=== PATIENT | male | born 1940 | race Caucasian/White ===

== ENCOUNTER 2016-12-15 20:02 | Inpatient (IN) | payer OTHER, MEDICARE ==
[~2016-12-15] VITALS: Ht 182.9 cm; Wt 63.6 kg
[~2016-12-15 20:02] MED LIST: CELLCEPT 250MG250 MG PO; CLOPIDOGREL75 MG PO; FLEXERIL10 MG PO; HYDRODIURIL 2525 MG PO; LIPITOR40 MG PO; NIFEDICAL XL60 MG PO; NITROGLYCER0.4 MG/HR SL; PREVACID 30MG30 MG PO; RANEXA 500MG500 MG PO; TAMSULOSIN HYD0.4 MG PO; VICODIN5-300 PO; ZETIA10 MG PO; ZOVIRAX400 MG PO
[2016-12-15] MEDS ORDERED: ACYCLOVIR200 M1 PO (20:08)
[2016-12-15] MEDS ORDERED: LIPITOR80 M1 PO (20:09)
[2016-12-15] MEDS ORDERED: CARVEDILOL12.5 M1 PO (20:10)
[2016-12-15] MEDS ORDERED: PLAVIX75 M1 PO (20:10)
[2016-12-15] MEDS ORDERED: HYDROCHLOROTHIA25 M1 PO (20:12)
[2016-12-15] MEDS ORDERED: FINASTERIDE5 M1 PO (20:12)
--- NOTE | 2016-12-15 20:15 | ED GENERAL ADULT ---
History of Present Illness General Chief Complaint: General Adult Stated Complaint: BIBA FOR CHILLS,FEVER,WEAKNESS,STENT ON TH Source: patient, EMS Exam Limitations: confusion Vital Signs & Intake/Output Vital Signs & Intake/Output Vital Signs Date Time Temp Pulse Resp B/P Pulse O2 O2 Flow FiO2 Ox Delivery Rate 12/178 75 12/17 2201 72 82/51 12/17 2202 71 82/51 12/17 2201 72 82/51 12/17 1900 85 12/17 1625 100 12/17 1600 89 Ventilator 100% 12/17 1600 98.0 100 20 100/70 94 Ventilator 100% 12/17 1429 100 12/17 1315 100 12/17 1300 134 104/60 12/17 1200 89 Ventilator 100% 12/17 1133 100 12/17 1022 92 12/17 0800 88 BIPAP 90% 12/17 0800 99.3 124 36 170/90 88 BIPAP 90% 12/17 0800 113 85 12/17 0540 74 93 12/17 0400 92 BIPAP 50% 12/17 0303 73 94 12/17 0032 85 99 12/17 0019 86 99 12/17 0016 92 99 12/17 0000 103.5 90 26 100/48 97 BIPAP 70% 12/17 0000 97 BIPAP 70% ED Intake and Output 12/17 0000 12/16 1200 Intake Total 1342.5 610 Output Total 750 175 Balance 592.5 435 Intake, IV 822.5 550 Intake, Oral 520 60 Number 1 Bowel Movements Output, Urine 750 175 Patient 152 lb Weight Allergies Coded Allergies: Penicillins (HIVES 12/15/16) Reconcile Medications Acyclovir 200 MG CAPSULE 1 CAP PO BID COLD SORES (Reported) Aspirin (Aspirin*) 81 MG TAB.CHEW 1 TAB PO DAILY HEART (Reported) Atorvastatin Calcium (Lipitor) 80 MG TABLET 0.5 TAB PO DAILY CHOLESTEROL ( Reported) Carvedilol 12.5 MG TABLET 0.5 TAB PO BID HEART/BP (Reported) Clopidogrel Bisulfate (Plavix) 75 MG TABLET 1 TAB PO DAILY BLOOD THINNER ( Reported) Finasteride 5 MG TABLET 1 TAB PO DAILY PROSTATE (Reported) Hydrochlorothiazide 25 MG TABLET 1 TAB PO DAILY DIURETIC/BP (Reported) Isosorbide Mononitrate (Isosorbide Mononitrate ER) 60 MG TAB.ER.24H 0.5 TAB PO QAM CHEST/ANGINA (Reported) Metformin HCl 500 MG TABLET 1 TAB PO BID DM (Reported) Nifedipine (Procardia XL) 60 MG TAB.ER.24 1 TAB PO DAILY BP/HEART (Reported) Nitroglycerin 400 MCG/SPRAY SPRAY 1 SPRAY SL 4XDAILY PRN CHEST/JAW DISCOMFORT (Reported) Nitroglycerin (Minitran) 0.4 MG/HOUR PATCH.TD24 1 PATCH TOP DAILY CHEST PAIN (Reported) Omeprazole 20 MG TABLET.DR 1 TAB PO DAILY AC GI (Reported) Ranolazine (Ranexa) 500 MG TAB.ER.12H 1 TAB PO BID ANGINA/CHEST PAIN ( Reported) Tamsulosin HCl (Flomax) 0.4 MG CAP.ER.24H 1 CAP PO DAILY PROSTATE (Reported) Triage Nurses Notes Reviewed? yes Onset: Abrupt Duration: hour(s): (2-3) Timing: single episode today Injury Environment: home Severity: severe No Modifying Factors: none Associated Symptoms: weakness, chills, fever HPI: This is a 76-year-old male presents by EMS from home for chief complaint of fever, altered mental status and weakness. Patient reports that he had a stent placed in his left leg [facility] the [facility] yesterday. The point of access was his right groin. He denies any abdominal pain chest pain nausea or vomiting. Denies any dysuria. He states he just felt weak today. Patient reported taking Tylenol possibly 9:30 this morning. He is slow to respond to questions. He is oriented 3. Denies any other symptoms. The patient states that he rather would come to this hospital instead of the back to the OR. All of his doctors are at the OR including the vascular surgeon. Past History Travel History Traveled to [place] past 21 day No Medical History Any Pertinent Medical History? see below for history Cardiovascular: BYPASS, HEART CONDITION Surgical History Surgical History: VASCULAR STENT Psychosocial History What is your primary language Telugu Family History Hx Contributory? No Review of Systems Review of Systems Constitutional: Reports: chills, fever, malaise, weakness. EENTM: Reports: no symptoms. Respiratory: Denies: cough, short of breath. Cardiovascular: Denies: chest pain, palpitations. GI: Denies: diarrhea, vomiting. Genitourinary: Denies: dysuria, frequency. Musculoskeletal: Reports: no symptoms. Skin: Reports: no symptoms. Neurological/Psychological: Reports: no symptoms. Hematologic/Endocrine: Denies: bruising, bleeding, polyuria, polydipsia. Immunologic/Allergic: Reports: no symptoms. All Other Systems: Reviewed and Negative Physical Exam Physical Exam General Appearance: well developed/nourished, alert, awake, mild distress Head: atraumatic, normal appearance Eyes: Bilateral: normal appearance, PERRL, EOMI. Ears, Nose, Throat: normal pharynx, hearing grossly normal Neck: normal inspection, supple, full range of motion Respiratory: chest non-tender, no respiratory distress, decreased breath sounds Cardiovascular: tachycardia Peripheral Pulses: 2+ radial (R), 2+ radial (L) Gastrointestinal: normal bowel sounds, soft Back: normal inspection, normal range of motion Neurologic/Psych: no motor/sensory deficits, awake, alert, oriented x 3 Skin: intact, normal color, warm/dry, diaphoresis (forehead) Core Measures ACS in differential dx? Yes ASA ordered for poss ACS? Yes-ordered CVA/TIA Diagnosis: No Severe Sepsis Present: Yes BC x2: Yes Lactic Acid x2: Yes IV ABX Broad Spectrum: Yes NS/LR Started: Yes Septic Shock Present: No ED Sepsis Exam Date of Focused Sepsis Exam: 12/15/16 Time of Focused Sepsis Exam: 2199 Sepsis Cardiac Exam: Tachycardia Sepsis Resp Exam: CTA Sepsis Cap Refill Exam: <2 Sec Sepsis Peripheral Pulse Exam: Normal Sepsis Peripheral Pulse Location: Radial Sepsis Skin Color Exam: Normal for Ethnicity Skin Temp/Moisture Exam: Warm/Dry Progress Differential Diagnoses I considered the following diagnoses in my evaluation of the patient: [PNEUMONIA , UTI, SEPSIS, BACTEREMIA, ENDOCARDITIS, ACS] Plan of Care: Orders Procedure Date/time Status XRY-PORTABLE CHEST XRAY 12/18 0500 Active ICU LAB BUNDLE 12/18 0500 Active CBC WITHOUT DIFFERENTIAL 12/18 0500 Active TROPONIN LEVEL 12/17 2200 Complete EKG 12/17 2200 Active PARTIAL THROMBOPLASTIN TIME 12/17 1911 Complete VENTILATOR PARAMETERS 12/17 1900 Complete ICU LAB BUNDLE 12/17 1800 Complete TROPONIN LEVEL 12/17 1500 Complete EKG 12/17 1500 Active VENTILATOR PARAMETERS 12/17 1300 Complete BLOOD CULTURE 12/17 1250 Active ARTERIAL BLOOD GAS (GEN) 12/17 1200 Active VENTILATOR PARAMETERS 12/17 1125 Complete Cates, Insertion/Removal/Asses 12/17 1118 Active PARTIAL THROMBOPLASTIN TIME 12/17 1000 Complete TROPONIN LEVEL 12/17 0900 Complete EKG 12/17 0900 Active BIPAP 12/17 0845 Complete PHOSPHORUS 12/17 0335 Complete MAGNESIUM 12/17 0335 Complete BIPAP 12/17 0032 Complete BIPAP 12/17 0018 Complete Lab Add-on Test 12/17 UNK Active Restraint- Medical 12/17 UNK Active Precautions 12/16 2348 Active OXYGEN SETUP [facility] 12/16 UNK Complete OXYGEN 12/16 UNK Complete OXYGEN TRANSPORT 12/16 UNK Complete CONTIN. POS. AIRWAY PRESS. G 12/16 UNK Complete Current Medications Sig/Damon Start time Last Medication Dose Stop Time Status Admin Lorazepam 50 MG Q24H 12/17 2000 AC (Ativan Drip) Dextrose/Water 500 ML (Dextrose 5%) Non-Formulary 0 SEE ADMIN CRITERIA 12/17 1130 CAN Medication (NON FORMULARY) Polyethylene Glycol 17 GM DAILY PRN 12/16 1015 AC (Miralax) Tamsulosin HCl 0.4 MG DAILY 12/16 1000 AC (Flomax) Acetaminophen/ 1 TAB Q6P PRN 12/16 0015 AC Hydrocodone Bitart (Vicodin) Oxycodone HCl 10 MG Q6P PRN 12/16 0015 AC (Roxicodone) Laboratory Tests 12/17/160: Troponin I 35.10 *H 12/17/160: Anion Gap 12, Estimated GFR 28 L, Glucose 265 H, Calcium 7.3 L, Phosphorus 5.2 H, Magnesium 2.0, Total Bilirubin 0.5, AST 1308 H, ALT 1035 H, Albumin 2.4 L, APTT 83 H 12/17/16 1530: Troponin I 23.50 *H 12/17/16 1215: pH 7.37, pCO2 31 L, pO2 65 L, HCO3 17 L, ABG O2 Sat (Measured) 90.0 L, P-50 (Temp Corrected) YES, Carboxyhemoglobin 0.6 L, O2 Concentration % 100%, Temperature 99.3, Respiration Rate 20, O2 Delivery Method VENT, Vent Mode AC, Expiratory Pressure 5, Tidal Volume 500, Phlebotomy Draw Site RIGHT RADIAL 12/17/16 0949: Troponin I 11.90 *H, APTT 53 H 12/17/16 0335: Phosphorus 3.0, Troponin I 16.00 *H 12/17/16 0335: Anion Gap 12, Estimated GFR > 60, BUN/Creatinine Ratio 45.0 H, Magnesium 2.2, APTT 117 *H, CBC w Diff MAN DIFF ORDERED, RBC 4.02 L, MCV 90.2, MCH 30.5, RDW 14.1, MPV 9.4, Gran % 91.6 H, Lymphocytes % 5.3 L, Monocytes % 3.0, Eosinophils % 0, Basophils % 0.1, Absolute Granulocytes 7.7 H, Absolute Lymphocytes 0.4 L, Absolute Monocytes 0.2, Absolute Eosinophils 0, Absolute Basophils 0, Platelet Estimate DECREASED, Ovalocytes 1+, PUBS MCHC 33.9 Microbiology 12/17 1530 BLOOD: Blood Culture - RECD 12/17 1500 BLOOD: Blood Culture - RECD IV FLUIDS, BLOOD CULTURES, INFLUENZA SWAB, CXR, LABS, UA, URINE CULTURE. IV TYLENOL ORDERED. CXR SHOWS ? PNEUMONIA. IV ABX ORDERED. ELEVATED TROPONIN. D/W DR IRAHETA. PATIENT WITH NO CHEST PAIN OR SHORTNESS OF BREATH. PATIENT ADMITTED TO TELEMETRY FOR ELEVATED TROPONIN. ASPIRIN ORDERED. WILL NEED SERIAL EKG/ TROPONINS. DR IRAHETA WILL CONSULT. ADMITTED TO HOSPITALIST ON TELEMETRY. ([facility]) Diagnostic Imaging: Viewed by Me: Radiology Read. Discussed w/RAD: Radiology Read. Initial ED EKG: RBBB, SINUS TACHYCARDIA Comments: PATIENT: CAITY BELL PRESENT AGE: 76 PATIENT ACCOUNT NO: [id number] : 38 LOCATION: [facility] ORDERING PHYSICIAN: LULU HARVEY MD SERVICE DATE: 12/15/16 EXAM TYPE: RAD - XRY-PORTABLE CHEST XRAY EXAMINATION: XR PORTABLE CHEST CLINICAL INFORMATION: Fever. Weakness. Pneumonia. COMPARISON: Chest radiography 07/10/2014. TECHNIQUE: Portable AP view of the chest was obtained. FINDINGS: Sternotomy wires and mediastinal surgical clips noted. The lungs are well expanded. Mild left basilar opacification. No pulmonary edema, pleural effusion, or pneumothorax. No mediastinal widening. No acute osseous abnormalities. IMPRESSION: Mild left basilar opacification, consider atelectasis or other subtle consolidation. DICTATED BY: BOB HERNANDEZ MD DATE/TIME DICTATED:12/15/162144 PATTERN ILLUSTRATOR:VANESSA DATE/TIME TRANSCRIBED:12/15/162144 CONFIDENTIAL, DO NOT COPY WITHOUT APPROPRIATE AUTHORIZATION. <Electronically signed in Other Vendor System> SIGNED BY: BOB HERNANDEZ MD 12/15/162150 Departure Departure Time of Disposition: 2257 Disposition: STILL A PATIENT Condition: Stable Clinical Impression Primary Impression: SIRS (systemic inflammatory response syndrome) Secondary Impressions: Elevated troponin I level, Pneumonia Referrals: AYDE HUGHES MD (PCP/Family) Departure Forms: Customer Survey General Discharge Information Admission Note Spoke With: MERYL CROOK MD Documentation of Exam: Documentation of any treatments & extenuating circumstances including Concerns Regarding Discharge (functional status, medication knowledge or non-compliance, living conditions, etc.) that warrant an admission rather than observation: [ TELE MONITOR, IV ABX, IV FLUIDS, IV ANTIPYRETICS, F/U BLOOD AND URINE CULTURES, MONITOR I/O, CARDIOLOGY CONSULTATION DR FELA IRHAETA, SERIAL EKG, SERIAL TROPONIN ] Critical Care Note Critical Care Note Critical Care Time: 30-74 min
[2016-12-15] MEDS ORDERED: ISOSORBIDE MONO60 M1 PO (20:17)
[2016-12-15] MEDS ORDERED: PROCARDIA XL60 M1 PO (20:18)
[2016-12-15] MEDS ORDERED: METFORMIN HCL500 M3 PO (20:18)
[2016-12-15] MEDS ORDERED: NITROGLYCERIN4.9 GM SL (20:20)
[2016-12-15] MEDS ORDERED: OMEPRAZOLE20 M3 PO (20:21)
[2016-12-15] MEDS ORDERED: MINITRAN1 EAC2 TOP (20:21)
[2016-12-15] MEDS ORDERED: FLOMAX0.4 M1 PO (20:22)
[2016-12-15] MEDS ORDERED: RANEXA500 M1 PO (20:22)
--- NOTE | 2016-12-15 20:22 | NUR ---
PT BIBA FROM HOME. PER PT HE HAD A STENT PLACED IN LEFT LEG SATURDAY MORNING AND OVER THE PAST FEW DAYS HE HAS BEEN WEAK. PT WENT TO THE RESTROOM AT HOME AND BECAME INCREASINGLY WEAK AND WAS LOWERED TO THE FLOOR. NO HEAD HIT OR LOC. BS IN ROUTE TO ED 278. EMS, STATES THAT PT FREQUENTLY GETS URINARY TRACT INFECTIONS. UPON ED ARRIVAL PT ALERT AND ORIENTED. NITRO PATCH TO R CHEST. PT WARM TO TOUCH. TACHYCARDIC AT 110. TEMP 101.7. CARDIAC HX.
--- NOTE | 2016-12-15 20:48 | NUR ---
BLOOD DRAWN AND SENT TO LAB SST, LAV, BLUE, ZAYAS, PINK
[2016-12-15 21:01] LABS: ABSOLUTE BASOPHIL COUNT 0 /CUMM (0.0-0.2); ABSOLUTE EOSINOPHIL COUNT 0 /CUMM (0.0-0.7); ABSOLUTE GRANULOCYTE CT 13.8 /CUMM (1.4-6.5); ABSOLUTE LYMPH COUNT 0.2 /CUMM (1.2-3.4); ABSOLUTE MONOCYTE COUNT 1.1 /CUMM (0.10-0.60); BASOPHIL % 0.1 % (0.0-2.0); EOSINOPHIL % 0 % (0-5); GRANULOCYTE % 91.5 % (42.2-75.2); HEMATOCRIT 41.5 % (42-52); MEAN CORPUSCULAR HGB 30.6 PG (27.0-31.0); MEAN CORPUSCULAR HGB CONC 34.4 G/DL (33.0-37.0); MEAN CORPUSCULAR VOLUME 88.9 FL (80.0-94.0); MEAN PLATELET VOLUME 9.1 FL (7.4-10.4); PLATELET COUNT 192 /CUMM (130-400); RBC DISTRIBUTION WIDTH 13.9 % (11.5-14.5); RED BLOOD CELL CT 4.67 /CUMM (4.70-6.10)
--- NOTE | 2016-12-15 21:03 | NUR ---
SST AND DUMONT TOP HEMOLYZED PER LAB. ISABELLA CASTAÑEDA NOTIFIED.
[2016-12-15 21:15] LABS: WHITE BLOOD CELL COUNT 15.1 /CUMM (4.8-10.8)
--- NOTE | 2016-12-15 21:18 | NUR ---
PT APPEARS TO BE RESTING COMFORTBALY. DENIES PAIN AND SOB. NO APPARENT DISTRESS. FAMILY AT BEDSIDE. WILL CONTINUE TO MONITOR.
--- NOTE | 2016-12-15 21:51 | RADIOLOGY REPORT ---
EXAMINATION: XR PORTABLE CHEST CLINICAL INFORMATION: Fever. Weakness. Pneumonia. COMPARISON: Chest radiography 07/10/2014. TECHNIQUE: Portable AP view of the chest was obtained. FINDINGS: Sternotomy wires and mediastinal surgical clips noted. The lungs are well expanded. Mild left basilar opacification. No pulmonary edema, pleural effusion, or pneumothorax. No mediastinal widening. No acute osseous abnormalities. IMPRESSION: Mild left basilar opacification, consider atelectasis or other subtle consolidation.
--- NOTE | 2016-12-15 21:59 | NUR ---
CRITICAL TEST RESULTS [id number] CAITY BELL 76 M TESTS AND RESULTS: TROP 0.36 Results received and read back by: CORAZON COSTELLO Results received date and time: 12/15/16 2200 The following provider was notified of the results, and read the results back: MD HARVEY Notified date and time: 12/15/16 at 2200
--- NOTE | 2016-12-15 22:55 | NUR ---
PT A/O X4. RESP UNLABORED. NSR ON THE MONITOR. SKIN WARM AND DRY. PT DENIES PAIN. NO APPARENT DISTRESS.
--- NOTE | 2016-12-15 23:02 | History & Physical ---
SANDRA DEE,MICHEL 12/15/16 2254: General Information and HPI MD Statement: I have seen and personally examined CAITY BELL and documented this H&P. The patient is a 76 year old M who presented with a patient stated chief complaint of [fever, weakness, Chills, ams]. Source of Information: patient Exam Limitations: no limitations History of Present Illness: This history 68-year-old male with past medical history significant for hypertension, hyperlipidemia, peripheral vascular disease, bladder cancer diagnosed over one year ago, oral HSV, CAD with a triple bypass in 1993, who has all his routine [facility], who presents with chief complaint of lower extremity weakness, fever, chills. Of note, patient had recent vascular procedure on 12/14/2016 at the [facility]. Per the patient, he had what sounds like a balloon angioplasty without stent in his left leg with access in his right groin. The procedure was done on outpatient basis and he was discharged home on the same day. Patient said he felt slightly below his baseline right after the procedure, but he slept well overnight. Starting this morning he did endorse chills, and subsequent weakness. By afternoon he said he couldn't get out of the chair or get out of bed. His called the ambulance and he was brought to [facility]. He denies any abdominal pain, chest pain, nausea, vomiting, dysuria, hematuria, hematochezia, or shortness of breath. Denies any smoking, alcohol or IV drug abuse. He does endorse history of frequent UTIs secondary to bladder cancer. Last UTI 6 months ago[address] PCP is Dr. Hughes, film inspector is Dr. Jordan and urologist is (sp?). Allergies/Medications Allergies: Coded Allergies: Penicillins (HIVES 12/15/16) Home Med list Acyclovir 200 MG CAPSULE 1 CAP PO BID COLD SORES (Reported) Aspirin (Aspirin*) 81 MG TAB.CHEW 1 TAB PO DAILY HEART (Reported) Atorvastatin Calcium (Lipitor) 80 MG TABLET 0.5 TAB PO DAILY CHOLESTEROL ( Reported) Carvedilol 12.5 MG TABLET 0.5 TAB PO BID HEART/BP (Reported) Clopidogrel Bisulfate (Plavix) 75 MG TABLET 1 TAB PO DAILY BLOOD THINNER ( Reported) Finasteride 5 MG TABLET 1 TAB PO DAILY PROSTATE (Reported) Hydrochlorothiazide 25 MG TABLET 1 TAB PO DAILY DIURETIC/BP (Reported) Isosorbide Mononitrate (Isosorbide Mononitrate ER) 60 MG TAB.ER.24H 0.5 TAB PO QAM CHEST/ANGINA (Reported) Metformin HCl 500 MG TABLET 1 TAB PO BID DM (Reported) Nifedipine (Procardia XL) 60 MG TAB.ER.24 1 TAB PO DAILY BP/HEART (Reported) Nitroglycerin 400 MCG/SPRAY SPRAY 1 SPRAY SL 4XDAILY PRN CHEST/JAW DISCOMFORT (Reported) Nitroglycerin (Minitran) 0.4 MG/HOUR PATCH.TD24 1 PATCH TOP DAILY CHEST PAIN (Reported) Omeprazole 20 MG TABLET.DR 1 TAB PO DAILY AC GI (Reported) Ranolazine (Ranexa) 500 MG TAB.ER.12H 1 TAB PO BID ANGINA/CHEST PAIN ( Reported) Tamsulosin HCl (Flomax) 0.4 MG CAP.ER.24H 1 CAP PO DAILY PROSTATE (Reported) Compliance With Home Meds: UNKNOWN Past History Travel History Traveled to [place] past 21 day No Medical History Cardiovascular: hypertension, hyperlipidemia, PVD, QUADRUPLE BYPASS Musculoskeletal: PVD Cancer(s): bladder Surgical History Surgical History: Balloon Angio of LLE. Past Family/Social History Psychosocial History Smoking Status: Never Smoked ETOH Use: denies use Illicit Drug Use: denies illicit drug use Functional Ability ADLs Independent: dressing, eating, toileting, bathing. Employment History Employment [employer] Review of Systems Review of Systems Constitutional: Reports: chills, fever, malaise, weakness. Denies: diaphoresis, unexplained weight loss. EENTM: Denies: blurred vision. Cardiovascular: Denies: chest pain, edema, orthopena, palpitations, peripheral edema, syncope. Respiratory: Denies: cough, short of breath, wheezing. GI: Denies: abdominal pain, bloating, constipation, diarrhea, distention, bowel incontinence, melena, nausea, vomiting. Genitourinary: Denies: frequency, hematuria, hesitation, nocturia, pain, urgency. Musculoskeletal: Reports: no symptoms. Skin: Reports: no symptoms. Exam & Diagnostic Data Last 24 Hrs of Vital Signs/I&O Vital Signs Date Time Temp Pulse Resp B/P Pulse O2 O2 Flow FiO2 Ox Delivery Rate 12/15 2204 102.3 93 16 117/56 95 Nasal 2.0L Cannula 12/15 2048 101.7 12/15 2022 101.7 110 20 154/67 95 Nasal 2.0L Cannula Physical Exam General Appearance Alert, Oriented X3, Cooperative, No Acute Distress Skin No Significant Lesion HEENT Atraumatic, PERRLA, EOMI, Mucous Membr. moist/pink Neck Supple Cardiovascular Regular Rate, Normal S1, Normal S2, No Murmurs Lungs Clear to Auscultation, decreased air movement. Mild rhonchi Abdomen Soft, No Tenderness Neurological Normal Speech Extremities r. groin has evidence of catheter insertion. Looks clean with some petechiae but no evidence of infection or hematoma. Vascular Normal Pulses, Pulses Symmetrical, warm well perfused extremities Last 24 Hrs of Labs/Evens: Laboratory Tests 12/15/162328: Lactic Acid Pending 12/15/162107: Anion Gap 13, Estimated GFR > 60, BUN/Creatinine Ratio 28.6 H, Glucose 207 H, Lactic Acid 1.3, Calcium 8.6, Total Bilirubin 1.1, AST 20, ALT 35, Alkaline Phosphatase 79, Creatine Kinase 57, Troponin I 0.36 *H, Total Protein 6.4, Albumin 3.5, Globulin 2.9, Albumin/Globulin Ratio 1.2, Urine Color YEL, Urine Clarity CLEAR, Urine pH 6.0, Ur Specific [place] 1.025, Urine Protein 100 H, Urine Ketones TRACE H, Urine Nitrite NEG, Urine Bilirubin NEG, Urine Urobilinogen 1.0, Ur Leukocyte Esterase NEG, Ur Microscopic SEDIMENT EXAMINED, Urine RBC 5-10 H, Urine WBC 15-25 H, Ur Epithelial Cells OCCAS, Urine Hemoglobin MOD H, Urine Glucose NEG 12/15/162039: CBC w Diff NO MAN DIFF REQ, RBC 4.67 L, MCV 88.9, MCH 30.6, RDW 13.9, MPV 9.1, Gran % 91.5 H, Lymphocytes % 1.4 L, Monocytes % 7.0, Eosinophils % 0, Basophils % 0.1, Absolute Granulocytes 13.8 H, Absolute Lymphocytes 0.2 L, Absolute Monocytes 1.1 H, Absolute Eosinophils 0, Absolute Basophils 0, PUBS MCHC 34.4 Microbiology 12/15 2109 NASOPHARYN: Influenza Virus A & B Rapid Smear - COMP 12/15 2099 BLOOD: Blood Culture - RECD 12/15 2039 BLOOD: Blood Culture - RECD Assessment/Plan Assessment: This is a 76-year-old male with past medical history significant for CAD status post quadruple bypass, bladder cancer with recurrent UTI, peripheral vascular disease with recent vascular procedure done yesterday, hyperlipidemia, hypertension, diabetes, presented with chief complaint of chills, weakness, and fever. Given history of recent instrumentation, fever, elevated white count, and positive troponin, patient is admitted to telemetry for sepsis and demand ischemia. ED workup showed: Vitals at 102.3, heart rate between 93 and 110, respiratory rate between 16 and 20, blood pressure between 154 and 117 systolic, satting 95% on room air. BEP showed sodium 134, potassium 3.2, chloride 98, bicarbonate 24, BUN 20, creatinine 0.7. Gap of 13. Glucose 27, lactic acid 1.3, troponin 136, CK 57. CBC showed white count 15.1, hemoglobin 14.3, hematocrit 41.5, platelet 192. Chest x-ray showed possible left basilar opacification, possible atelectasis vx foci of pneumonia. EKG showed: Right bundle branch block, tachycardia, and possible anterolateral ST depression. PLAN 1. Sepsis: Patient comes in with fever 102.3, white count of 15.1, and tachycardia with heart rate up to 110. He has several possible sources of infection including pneumonia given chest x-ray showing left basilar opacification, UTI given frequent history of chronic UTIs secondary to bladder cancer w/a dirty UA this admission, and a bloodstream infection given temporal proximity of vascular intervention on 12/14/2016. His lactic acid was 1.3. Given that patient meets SIRS criteria with multiple source of infection, he meets criteria for sepsis. His qSOFA <2. * Trend lactic acid * Continue IV hydration * Continue ceftriaxone and azithromycin for possible pneumonia and UTI * Follow blood cultures * Follow-up flu swab 2. Elevated troponins: Patient had initial troponin of 0.36. His EKG shows tachycardia, right bundle branch block, and anterolateral ST depression. He does have history of quadruple bypass and is on nitroglycerin 20/05. He takes baby aspirin every day. * Troponin EKG at 3 AM and 9 AM * Cardiology consult in a.m. * Monitor on telemetry * Continue nitroglycerin * Echo in a.m. * [facility] 4. PVD: Patient has history of peripheral vascular disease. On physical exam his extremities were warm, well-perfused and had palpable pulses. He had recent instrumentation on his right lower extremity; per patient he had a balloon procedure performed. No stents were implanted at this time. He is on aspirin and Plavix at home. * Continue aspirin and Plavix * [facility] 5. Hypokalemia: Patient came in with potassium 3.2. * Check magnesium * Replete potassium * Monitor BEP 6. History of oral HSV: Patient states he has not had a an outbreak of HSV in over 6 months. * Continue to monitor. 7. Diabetes mellitus: Patient has history of diabetes on metformin. * Hold metformin * Accu-Chek * Sliding scale * Diabetic diet 8. Hypertension/ Hyperlipidemia/GERD/BPH: Continue home regimen. FULL CODE DIABETIC DIET Chemical dvt ppx As Ranked By This Provider Problem List: 1. Pneumonia 2. Elevated troponin I level 3. SIRS (systemic inflammatory response syndrome) Core Measures/Miscellaneous Acute Coronary Syndrome ACS Diagnosis: No Cerebrovascular Accident CVA/TIA Diagnosis: No Congestive Heart Failure CHF Diagnosis: No Venous Thromboembolism VTE Risk Factors: Acute medical illness, Age > 40, Cancer/chemo/oth therapy VTE Prophylaxis Ordered Inpt: Pharm- Lovenox No Mech VTE prophylaxis d/t: No contraindications No VTE Pharm Prophylaxis d/t: No contraindications VTE Diagnosis: No VTE Type: NONE VTE Confirmed by (Test): NONE Severe Sepsis Severe Sepsis Present: No Septic Shock Septic Shock Present: No Miscellaneous Documentation Attending Case Discussed With: Dr. Montoya Primary Care Physician: AYDE HUGHES MD Patient sees these Specialists Dr. Jordan Level of Patient Care: Telemetry JOHN SYED MD 12/15/16 3365: Resident Review Statement Resident Statement: examined this patient, discussed with chemist internship Other Findings: This is a 76-year-old gentleman who has all his health care normally done at the [facility] that presents to the emergency room today with a chief complaint of feeling tired and fatigued. He has a past medical history significant for hypertension, hyperlipidemia, diabetes mellitus, peripheral or vascular disease, coronary artery disease status post CABG over 10 years ago, history of bladder cancer receiving installations currently, recent surgical history of left femoral artery balloon procedure yesterday at the [facility] without any stents, who has mentioned above presented today feeling tired and fatigued. Patient states that yesterday he went in for his vascular procedure which was a scheduled routine outpatient procedure, subsequently he went home and felt tired and fatigue last night and went to bed. He woke up this morning and it was difficult for him to ambulate and subsequently his brought him to the emergency room. He does complain of some fevers however denies any chest pain, shortness of breath, nausea, vomiting, recent illnesses or sick contacts. He reports no UTI like symptoms. Significant physical exam- He is alert and oriented to time place and person; cardiac and lung exam is benign; pulses equal and present bilateral lower extremities; right groin postprocedure surgical incision healing well. EKG Rate 109, PO2 of 4, QRS 158, QTC 502, sinus tachycardia, right bundle branch block, left posterior fascicular block Chest x-ray- Mild left basilar opacification, atelectasis versus consolidation Labs- Leukocytosis of 15,100, sodium 134, potassium 3.2, lactic acid 1.3, first troponin 0.36 Urine significant for proteins, trace ketones, 5-10 RBCs, 15-25 WBCs Assessment- 1. Sepsis; likely secondary to pneumonia versus UTI 2. Community-acquired pneumonia 3. Urinary tract infection 4. Positive troponin; likely secondary to sepsis 5. Leukocytosis; likely reactive to infection 6. Coronary artery disease, status post CABG 7. One-day history of left femoral artery balloon procedure 8. History of bladder cancer 9. Hypertension 10. Hyperlipidemia 11. Diabetes mellitus 12. Peripheral vascular disease 13. BPH 14. GERD 15. Remote history of oral herpes simplex 16. Hypokalemia, potassium 3.2 17. Hyponatremia, sodium 134, likely secondary to decreased by mouth intake Plan- Admit to telemetry Trend troponin and EKG Strict I's and O's Cardiology consult in AM Echocardiogram Kim culture IV ceftriaxone and azithromycin Continue all home meds Replete potassium Repeat labs in the morning Accu-Cheks Diabetic diet Sliding scale insulin DVT prophylaxis with subcutaneous heparin Pain pathway Full code [facility] AMBREEN DEE, [facility] 12/16/16 0110: Attending MD Review Statement Attending Statement Attending MD Statement: examined this patient, discuss w/resident/PA/MELTER LOADER, agreed w/resident/PA/MELTER LOADER Attending Assessment/Plan: 76 yo M who mainly follows at [facility], has h/o CAD s/p CABG (1993), HTN, T2DM, PVD s/p left ?femoral balloon angioplasty (access through right groin) at the [facility] 1-2 days prior to admission, is here with c/o weakness, lethargy and fever. He denies lightheadedness or syncope. No fall or trauma. Denies cough, phlegm, dyspnea, N/V, diarrhea or urinary symptoms. He also has a h/o bladder cancer undergoing ?intravesical therapy with Dr. Webber, patient unable to provide much details. Also reports recurrent UTI, last treated about 6 months ago per patient. Vitals: Tmax 102.3, tachycardic to 100-110's, sats 95% on 2L, BP 119/56. Exam: AAO, dry mucous membranes, no oral thrush or sores, Chest bibasilar rhonchi+, Heart S1S2 regular, tachycardic, systolic murmur+, Abd soft, NT, Extremities no edema, peripheral pulses well felt. Right groin no obvious swelling or erythema. Labs: WBC 15.1, no bands, Na 134, K 3.2, glucose 207, lactic acid 1.3, Mag 1.6, trop 0.36, UA clear with WBC 15-25, RBC 5-10, neg leukocyte esterase. CXR: mild left basilar opacification. EKG: Sinus tachycardia @ 109, RBBB, LPFB, first degree AV block, Qtc 502, V3-V5 mild ST depression ?tachycardia induced. 1. SIRS/ sepsis in the setting of community acquired pneumonia. UA is not convincingly dirty to suggest a UTI and patient remains asymptomatic. His right groin access site looks clean. No obvious SSTI. He has no implants (prosthesis, pacemaker, stents, port) in his body. Will panculture, check urine legionella and strep Ag, continue IV ceftriaxone and azithro for now. Follow cultures to taper antibiotics accordingly. Obtain records from [facility] about exact procedure performed. 2. Elevated troponin likely NSTEMI vs. Demand ischemia. Monitor on telemetry, serial EKG and trend troponin, Echo, check TSH and free T4, Cardio consult in AM. Replete electrolytes to keep K > 4.0 and Mag > 2.0. Ct. aspirin, no need for IV heparin at this point. 3. Bladder cancer undergoing chemotherapy, with a report of recurrent UTI infections. [facility] as to what [facility] patient has been receiving. Consider consult with Oncology and Urology as needed. 4. CAD s/p CABG and PVD s/p left leg balloon angioplasty. Ct. Aspirin, plavix, BB and statin. Ct. Ranolazine, nifedipine and imdur (place holding parameters for hypotension). 5. T2DM. Accucheks, novolog SS, hold metformin, initiate Novolog SS. Check HbA1c. 6. HTN. Hold HCTZ. DVT ppx Lovenox. Full code. Update (5.45 AM): Repeat troponin increased from 0.36 to 2.96 [address] slightly more prominent [address] depressions in anterolateral leads, patient remains asymptomatic. Initiating IV heparin and calling Cardio Dr. Jimenez.
[2016-12-15] MEDS ORDERED: ASPIRIN EC81 M1 PO (23:33)
--- NOTE | 2016-12-16 00:30 | NUR ---
PT A/O X4. RESP UNLABORED. NSR ON THE MONITOR. SKIN WARM AND DRY. DENIES PAIN.
--- NOTE | 2016-12-16 00:56 | NUR ---
PT GOING TO ROOM 171
--- NOTE | 2016-12-16 01:12 | Admission Certification ---
Admission Certification Certification Statement - As attending physician, I certify that at the time of - admission, based on clinical presentation, severity of - symptoms, need for further diagnostic testing and - therapeutic interventions, and risk of adverse outcomes - without in-hospital treatment, in my clinical assessment, - this patient requires an acute hospital stay for a minimum - of two nights or longer. I have also considered psychsocial - factors such as support system, advanced age, financial - issues, cognitive issues, and failed out-patient treatments, - past re-admission history, safety of patient, and lack of - compliance as applicable. Specific rationale supporting this admission is: Sepsis 2/2 pneumonia. Elevated troponin - NSTEMI vs. demand ischemia.
--- NOTE | 2016-12-16 01:23 | NUR ---
2ND DOSE OF ZITHROMAX NOT GIVEN
[2016-12-16 01:44] VITALS: BP 102/58
--- NOTE | 2016-12-16 04:20 | NUR ---
UPON ASSESSMENT PT FOUND TO BE TACHY AT 116 WITH A TEMP OF 103.3 AND O2 SAT OF 89% ON 2L NC. JEAN SYED MD NOTIFIED AND IV TYLENOL ORDERED AND RUNNING. PT CURRENTLY ON 4L NC WITH O2 OF 92%. ICE PACKS APPLIED TO NECK AND GROIN. WILL CONTINUE TO MONITOR.
[2016-12-16 08:04] VITALS: BP 100/60
--- NOTE | 2016-12-16 08:45 | PN- Housestaff ---
Subjective Follow-up For: Sepsis Immunity acquired pneumonia UTI Positive troponins Leukocytosis Coronary artery disease status post CABG Left femoral artery balloon procedure Tele-Events Since Last Visit: Sinus rhythm, sinus tachycardia, rate 92-162, BBB Subjective: Patient seen and examined. Sitting comfortably on his bed. Denies any headache , nausea, vomiting, dizziness, lightheadedness, shortness of breath, chest pain, abdominal pain, urinary symptoms. Reported having constipation and wanted to try some stool softener. Review of Systems Constitutional: Denies: no symptoms. Objective Last 24 Hrs of Vital Signs/I&O Vital Signs Date Time Temp Pulse Resp B/P Pulse O2 O2 Flow FiO2 Ox Delivery Rate 12/16 0914 100/60 12/16 0914 100/60 12/16 0856 Nasal 4.0L Cannula 12/16 0809 93 Nasal 4.0L Cannula 12/16 0804 98.4 88 16 100/60 93 Nasal 3.0L Cannula 12/16 0542 98.9 12/16 0528 98.9 12/16 0419 103.3 12/16 0400 103.3 12/16 0144 98.8 103 20 102/58 94 Nasal 2.0L Cannula 12/16 0137 Nasal 2.0L Cannula 12/16 0102 98.7 12/16 0102 98.7 80 18 119/56 96 Nasal 2.0L Cannula 12/15 2204 102.3 93 16 117/56 95 Nasal 2.0L Cannula 12/15 2049 101.7 12/15 2023 101.7 110 20 154/67 95 Nasal 2.0L Cannula Intake & Output 12/16 1600 12/16 0800 12/16 0000 Intake Total 610 0 Output Total 175 Balance 435 0 Intake, IV 550 Intake, Oral 60 0 Output, Urine 175 Patient 152 lb 185 lb Weight Physical Exam General Appearance: Alert, Oriented X3, Cooperative, No Acute Distress Skin: No Rashes, No Breakdown, No Significant Lesion HEENT: Atraumatic, PERRLA, EOMI, Mucous Membr. moist/pink Neck: Supple, No JVD, No thryomegaly, +2 Carotid Pulse wo Bruit, No LAD Lymphatic: Axillary nl, Cervical nl Cardiovascular: Regular Rate, Normal S1, Normal S2, No Murmurs Lungs: Clear to Auscultation, Normal Air Movement Abdomen: Normal Bowel Sounds, Soft, No Tenderness, No Hepatospenomegaly, No Masses Neurological: Normal Speech, Strength at 5/5 X4 Ext, Normal Tone, Sensation Intact Extremities: No Edema, Normal Pulses Vascular: Pulses Symmetrical Current Medications: Current Medications Sig/Damon Start time Last Medication Dose Route Stop Time Status Admin Acetaminophen 1,000 MG ONCE ONE 12/165 DC 12/16 N/A 1 UNIT IV 12/16 0429 0419 Acetaminophen 650 MG Q6P PRN 12/16 0015 AC PO Acetaminophen 0 .STK-MED ONE 12/15 2037 DC IV Acetaminophen 1,000 MG ONCE ONE 12/15 2029 DC 12/15 N/A 1 UNIT IV 12/15 2043 204 Acetaminophen/ 1 TAB Q6P PRN 12/16 0015 AC Hydrocodone Bitart PO Aspirin 81 MG DAILY 12/16 1000 AC 12/16 PO 0914 Aspirin 0 .STK-MED ONE 12/15 223 DC PO Aspirin 325 MG ONCE ONE 12/15 2230 DC 12/15 PO 12/15 2231 2238 Atorvastatin Calcium 40 MG 1700 12/16 1700 AC PO Azithromycin 500 MG DAILY@12/16 2200 AC Dextrose/Water 250 ML IV Azithromycin 500 MG Q24H 12/16 0015 DC 12/16 Sodium Chloride 250 ML IV 0051 Azithromycin 500 MG ONCE ONE 12/15 2215 DC 12/15 Dextrose/Water 250 ML IV 12/15 2314 2253 Carvedilol 6.25 MG BID 12/16 1000 AC 12/16 PO 0914 Carvedilol 6.25 MG BID 12/16 0008 DC 12/16 PO 0050 Ceftriaxone Sodium 1,000 MG DAILY@12/16 2200 AC IV Ceftriaxone Sodium 0 .STK-MED ONE 12/15 2232 DC .ROUTE Ceftriaxone Sodium 1,000 MG ONCE ONE 12/15 2215 DC 12/15 IV 12/15 2216 2238 Clopidogrel Bisulfate 75 MG DAILY 12/16 1000 AC 12/16 PO 0914 Finasteride 5 MG DAILY 12/16 1000 AC 12/16 PO 0914 Heparin Sodium 5,000 UNIT ONCE ONE 12/16 0530 DC 12/16 (Porcine) IV 12/16 0531 0624 Heparin Sodium 25,000 UNIT Q24H 12/16 0530 AC 12/16 (Porcine) IV 0625 Sodium Chloride 500 ML Heparin Sodium 5,000 UNIT Q8 12/16 0005 DC 12/16 (Porcine) SC 0050 Hydrochlorothiazide 25 MG DAILY 12/16 1000 CAN PO Insulin Aspart 0 TIDAC 12/16 0800 AC 12/16 SC 0915 Isosorbide 30 MG QAM 12/16 1000 AC Mononitrate PO Magnesium Oxide 400 MG ONE ONE 12/16 0230 DC PO 12/16 0231 Nifedipine 60 MG DAILY 12/16 1000 AC PO Nitroglycerin 0.4 MG DAILY 12/16 1000 AC TOP Omeprazole 20 MG DAILY AC 12/16 0700 AC 12/16 PO 0914 Oxycodone HCl 10 MG Q6P PRN 12/16 0015 AC PO Polyethylene Glycol 17 GM DAILY PRN 12/16 1015 AC PO Potassium Chloride 40 MEQ ONCE ONE 12/16 0115 DC 12/16 PO 12/16 0116 0309 Potassium Chloride 0 .STK-MED ONE 12/16 0047 DC PO Potassium Chloride 0 .STK-MED ONE 12/16 0047 DC IV Potassium Chloride 10 MEQ Q1H 12/16 0015 DC 12/16 IV 12/16 0116 0101 Potassium Chloride 40 MEQ ONCE ONE 12/16 0015 DC 12/16 PO 12/16 0016 0050 Ranolazine 500 MG BID 12/16 0010 AC 12/16 PO 0914 Sodium Chloride 1,000 ML ONCE ONE 12/16 0200 DC 12/16 IV 12/16 0959 0308 Sodium Chloride 500 ML BOLUS ONE 12/15 2030 DC 12/15 IV 12/15 2129 2100 Tamsulosin HCl 0.4 MG DAILY 12/16 1000 AC PO Last 24 Hrs of Lab/Evens Results Last 24 Hrs of Labs/Mics: Laboratory Tests 12/16/16 0945: Sodium Pending, Potassium Pending, Chloride Pending, Carbon Dioxide Pending, Anion Gap Pending, BUN Pending, Creatinine Pending, BUN/Creatinine Ratio Pending , Troponin I Pending, CBC w Diff MAN DIFF ORDERED, WBC Pending, RBC Pending, Hgb Pending, Hct Pending, MCV Pending, MCH Pending, RDW Pending, Plt Count Pending, MPV Pending, Gran % Pending, Lymphocytes % Pending, Monocytes % Pending, Eosinophils % Pending, Basophils % Pending, Absolute Granulocytes Pending, Segmented Neutrophils Pending, Absolute Lymphocytes Pending, Absolute Monocytes Pending, Absolute Eosinophils Pending, Absolute Basophils Pending, PUBS MCHC Pending 12/16/16 0310: Troponin I 2.96 *H 12/15/16 2329: Lactic Acid 1.2 12/15/162107: Anion Gap 13, Estimated GFR > 60, BUN/Creatinine Ratio 28.6 H, Glucose 207 H, Lactic Acid 1.3, Calcium 8.6, Magnesium 1.6, Total Bilirubin 1.1, AST 20, ALT 35 , Alkaline Phosphatase 79, Creatine Kinase 57, Troponin I 0.36 *H, Total Protein 6.4, Albumin 3.5, Globulin 2.9, Albumin/Globulin Ratio 1.2, TSH 1.310, Free T4 0.92, Urine Color YEL, Urine Clarity CLEAR, Urine pH 6.0, Ur Specific [place] 1.025, Urine Protein 100 H, Urine Ketones TRACE H, Urine Nitrite NEG, Urine Bilirubin NEG, Urine Urobilinogen 1.0, Ur Leukocyte Esterase NEG, Ur Microscopic SEDIMENT EXAMINED, Urine RBC 5-10 H, Urine WBC 15-25 H, Ur Epithelial Cells OCCAS, Urine Hemoglobin MOD H, Urine Glucose NEG 12/15/162039: CBC w Diff NO MAN DIFF REQ, RBC 4.67 L, MCV 88.9, MCH 30.6, RDW 13.9, MPV 9.1, Gran % 91.5 H, Lymphocytes % 1.4 L, Monocytes % 7.0, Eosinophils % 0, Basophils % 0.1, Absolute Granulocytes 13.8 H, Absolute Lymphocytes 0.2 L, Absolute Monocytes 1.1 H, Absolute Eosinophils 0, Absolute Basophils 0, PUBS MCHC 34.4 Microbiology 12/16 11 LOWER RESP: Respiratory Culture - COLB 12/16 11 LOWER RESP: Gram Stain - COLB 12/16 10 URINE ROUT: Legionella Antigen - COLB 12/16 10 URINE ROUT: Streptococcus pneumoniae Antigen (M - COLB 12/16 10 URINE ROUT: Urine Culture - COLB 12/15 2109 NASOPHARYN: Influenza Virus A & B Rapid Smear - COMP 12/15 2099 BLOOD: Blood Culture - RES GRAM POSITIVE COCCI 12/15 2039 BLOOD: Blood Culture - RES GRAM POSITIVE COCCI Assessment/Plan Assessment: This is a 76-year-old gentleman with past medical history significant for CAD status post quadruple bypass, bladder cancer with recurrent UTI, peripheral vascular disease with recent vascular procedure done yesterday, hyperlipidemia, hypertension, diabetes, presented with chief complaint of chills, weakness, and fever. Was found to have positive troponin. Problem list * Sepsis * Elevated troponins * PVD * Hypertension/hyperlipidemia/GERD Plan * Follow-up culture results, continue with current IV antibiotics meanwhile * [facility] * Regarding elevated troponins, cardiology consult appreciated, with final recommendations, patient is on IV heparin; had a troponin further increased to 6.09, EKG showed increasing ST depression, cardiology was notified, no acute intervention for now; please follow their recommendations. * Monitor electrolytes and replete accordingly * Continue aspirin, Plavix, statin, ranolazine * Continue beta malorie * Nifedipine, imdur were held this am given borderline BP; resume these medications if BP stable. * Continue with Accu-Cheks and NovoLog sliding scale * DVT Prophylaxis: Patient is on IV heparin * Patient is full code Problem List: 1. Angina pectoris 2. Elevated troponin I level 3. SIRS (systemic inflammatory response syndrome) Pain Ratin Pain Location: NA Pain Goal: Remain pain free Pain Plan: Tylenol when necessary Tomorrow's Labs & Rationales: CBC, patient is on IV heparin BEP to monitor electrolytes.
--- NOTE | 2016-12-16 09:59 | Cons- Cardiology ---
General Information and HPI Consulting Request Date of Consult: 12/16/16 Requested By: AMBREEN DEE,MERYL Reason for Consult: Positive troponin in a patient with a recent vascular procedure. Source of Information: patient, old records Exam Limitations: no limitations History of Present Illness: Brenden Bell is a 76-year-old man with a long history of vascular disease. He had bypass surgery in 1993. He recently had a cardiac catheterization and was told that all 3 of his arteries are blocked and nothing more could be done. It is not clear what the indication for this study was as he has no chest pain or shortness of breath on exertion. The patient had an outpatient vascular procedure on Saturday at the [facility]. Yesterday he felt extremely weak and came to the emergency department where he was found to be febrile. He has abnormal EKG but this is chronically abnormal. An initial troponin was slightly elevated at 0.36 and a second troponin was 2.96 this morning. The patient is still not complaining of chest pain or shortness of breath. His fever has improved but his cardiac enzymes are rising. His blood cultures have just become positive for gram-positive cocci 2 cultures. Allergies/Medications Allergies: Coded Allergies: Penicillins (HIVES 12/15/16) Home Med List: Acyclovir 200 MG CAPSULE 1 CAP PO BID COLD SORES (Reported) Aspirin (Aspirin*) 81 MG TAB.CHEW 1 TAB PO DAILY HEART (Reported) Atorvastatin Calcium (Lipitor) 80 MG TABLET 0.5 TAB PO DAILY CHOLESTEROL ( Reported) Carvedilol 12.5 MG TABLET 0.5 TAB PO BID HEART/BP (Reported) Clopidogrel Bisulfate (Plavix) 75 MG TABLET 1 TAB PO DAILY BLOOD THINNER ( Reported) Finasteride 5 MG TABLET 1 TAB PO DAILY PROSTATE (Reported) Hydrochlorothiazide 25 MG TABLET 1 TAB PO DAILY DIURETIC/BP (Reported) Isosorbide Mononitrate (Isosorbide Mononitrate ER) 60 MG TAB.ER.24H 0.5 TAB PO QAM CHEST/ANGINA (Reported) Metformin HCl 500 MG TABLET 1 TAB PO BID DM (Reported) Nifedipine (Procardia XL) 60 MG TAB.ER.24 1 TAB PO DAILY BP/HEART (Reported) Nitroglycerin 400 MCG/SPRAY SPRAY 1 SPRAY SL 4XDAILY PRN CHEST/JAW DISCOMFORT (Reported) Nitroglycerin (Minitran) 0.4 MG/HOUR PATCH.TD24 1 PATCH TOP DAILY CHEST PAIN (Reported) Omeprazole 20 MG TABLET.DR 1 TAB PO DAILY AC GI (Reported) Ranolazine (Ranexa) 500 MG TAB.ER.12H 1 TAB PO BID ANGINA/CHEST PAIN ( Reported) Tamsulosin HCl (Flomax) 0.4 MG CAP.ER.24H 1 CAP PO DAILY PROSTATE (Reported) Current Medications: Current Medications Sig/Damon Start time Last Medication Dose Route Stop Time Status Admin Acetaminophen 1,000 MG ONCE ONE 12/16 414 DC 12/16 N/A 1 UNIT IV 12/16 428 0419 Acetaminophen 650 MG Q6P PRN 12/16 0015 AC PO Acetaminophen 0 .STK-MED ONE 12/15 2037 DC IV Acetaminophen 1,000 MG ONCE ONE 12/15 2029 DC 12/15 N/A 1 UNIT IV 12/15 2043 204 Acetaminophen/ 1 TAB Q6P PRN 12/16 0015 AC Hydrocodone Bitart PO Aspirin 81 MG DAILY 12/16 1000 AC 12/16 PO 0914 Aspirin 0 .STK-MED ONE 12/15 2230 DC PO Aspirin 325 MG ONCE ONE 12/15 2229 DC 12/15 PO 12/15 2230 223 Atorvastatin Calcium 40 MG 1700 12/16 1700 AC PO Azithromycin 500 MG DAILY@12/16 220 AC Dextrose/Water 250 ML IV Azithromycin 500 MG Q24H 12/16 0015 DC 12/16 Sodium Chloride 250 ML IV 0051 Azithromycin 500 MG ONCE ONE 12/15 2214 DC 12/15 Dextrose/Water 250 ML IV 12/15 2314 2253 Carvedilol 6.25 MG BID 12/16 1000 AC 12/16 PO 0914 Carvedilol 6.25 MG BID 12/16 0008 DC 12/16 PO 0050 Ceftriaxone Sodium 1,000 MG DAILY@12/16 2200 AC IV Ceftriaxone Sodium 0 .STK-MED ONE 12/15 223 DC .ROUTE Ceftriaxone Sodium 1,000 MG ONCE ONE 12/15 2214 DC 12/15 IV 12/15 2216 2238 Clopidogrel Bisulfate 75 MG DAILY 12/16 1000 AC 12/16 PO 0914 Finasteride 5 MG DAILY 12/16 1000 AC 12/16 PO 0914 Heparin Sodium 5,000 UNIT ONCE ONE 12/16 0530 DC 12/16 (Porcine) IV 12/16 0531 0624 Heparin Sodium 25,000 UNIT Q24H 12/16 0530 AC 12/16 (Porcine) IV 0625 Sodium Chloride 500 ML Heparin Sodium 5,000 UNIT Q8 12/16 0005 DC 12/16 (Porcine) SC 0050 Hydrochlorothiazide 25 MG DAILY 12/16 1000 CAN PO Insulin Aspart 0 TIDAC 12/16 0800 AC 12/16 SC 0915 Isosorbide 30 MG QAM 12/16 1000 AC Mononitrate PO Magnesium Oxide 400 MG ONE ONE 12/16 0230 DC PO 12/16 0231 Nifedipine 60 MG DAILY 12/16 1000 AC PO Nitroglycerin 0.4 MG DAILY 12/16 1000 AC TOP Omeprazole 20 MG DAILY AC 12/16 0700 AC 12/16 PO 0914 Oxycodone HCl 10 MG Q6P PRN 12/16 0015 AC PO Potassium Chloride 40 MEQ ONCE ONE 12/16 0115 DC 12/16 PO 12/16 0116 0309 Potassium Chloride 0 .STK-MED ONE 12/16 0047 DC PO Potassium Chloride 0 .STK-MED ONE 12/16 0047 DC IV Potassium Chloride 10 MEQ Q1H 12/16 0015 DC 12/16 IV 12/16 0116 0101 Potassium Chloride 40 MEQ ONCE ONE 12/16 0015 DC 12/16 PO 12/16 0016 0050 Ranolazine 500 MG BID 12/16 0010 AC 12/16 PO 0914 Sodium Chloride 1,000 ML ONCE ONE 12/16 0200 AC 12/16 IV 12/16 0959 0308 Sodium Chloride 500 ML BOLUS ONE 12/15 2030 DC 12/15 IV 12/15 2129 2100 Tamsulosin HCl 0.4 MG DAILY 12/16 1000 AC PO Review of Systems Review of Systems: He has no complaints in the review of systems Past History Travel History Traveled to [place] past 21 day No Medical History Cardiovascular: CAD, hypertension, hyperlipidemia, PVD, QUADRUPLE BYPASS Musculoskeletal: PVD Cancer(s): bladder Surgical History Surgical History: Balloon Angio of LLE. Psychosocial History Where Do You Live? Home Smoking Status: Never Smoked ETOH Use: denies use Illicit Drug Use: denies illicit drug use Functional Ability ADLs Independent: dressing, eating, toileting, bathing. Employment History Employment: [employer] Exam & Diagnostic Data Vital Signs and I&O Vital Signs Date Time Temp Pulse Resp B/P Pulse O2 O2 Flow FiO2 Ox Delivery Rate 02/19 0914 100/60 12/16 0914 100/60 12/16 0856 Nasal 4.0L Cannula 12/16 0809 93 Nasal 4.0L Cannula 12/16 0804 98.4 88 16 100/60 93 Nasal 3.0L Cannula 12/16 0542 98.9 12/16 0528 98.9 12/16 0419 103.3 12/16 0400 103.3 12/16 0144 98.8 103 20 102/58 94 Nasal 2.0L Cannula 12/16 0137 Nasal 2.0L Cannula 12/16 0102 98.7 12/16 0102 98.7 80 18 119/56 96 Nasal 2.0L Cannula 12/15 2204 102.3 93 16 117/56 95 Nasal 2.0L Cannula 12/15 2048 101.7 12/15 2022 101.7 110 20 154/67 95 Nasal 2.0L Cannula Intake & Output 12/16 1600 12/16 0800 12/16 0000 12/15 1600 12/15 0800 12/15 0000 Intake Total 610 0 Output Total 175 Balance 435 0 Intake, IV 550 Intake, Oral 60 0 Output, Urine 175 Patient 152 lb 185 lb Weight Physical Exam: On physical he is well-developed well-nourished elderly man in no acute distress. He is currently afebrile but had maximum temperature of 103.3. HEENT exam is normal Neck veins not distended Carotids normal Chest is clear Heart reveals a regular rhythm with no murmurs. However there appears to be a 3 component pericardial friction rub heard at the apex. The abdomen is benign Extremities reveal decreased pulses and no edema Labs/Evens Results: Laboratory Tests 12/16 12/16 12/15 0945 0310 2329 Chemistry Sodium Pending Potassium Pending Chloride Pending Carbon Dioxide Pending Anion Gap Pending BUN Pending Creatinine Pending BUN/Creatinine Ratio Pending Lactic Acid (0.7 - 2.1 mmol/L) 1.2 Troponin I (<0.11 ng/ml) Pending 2.96 *H Hematology CBC w Diff Pending WBC Pending RBC Pending Hgb Pending Hct Pending MCV Pending MCH Pending RDW Pending Plt Count Pending MPV Pending PUBS MCHC Pending 12/15 Chemistry Sodium (137 - 145 mmol/L) 134 L Potassium (3.5 - 5.1 mmol/L) 3.2 L Chloride (98 - 107 mmol/L) 98 Carbon Dioxide (22 - 30 mmol/L) 24 Anion Gap (5 - 16) 13 BUN (9 - 20 mg/dL) 20 Creatinine (0.7 - 1.2 mg/dL) 0.7 Estimated GFR (>60 ml/min) > 60 BUN/Creatinine Ratio (7 - 25 %) 28.6 H Glucose (65 - 99 mg/dL) 207 H Lactic Acid (0.7 - 2.1 mmol/L) 1.3 Calcium (8.4 - 10.2 mg/dL) 8.6 Magnesium (1.6 - 2.3 mg/dL) 1.6 Total Bilirubin (0.2 - 1.3 mg/dL) 1.1 AST (17 - 59 U/L) 20 ALT (21 - 72 U/L) 35 Alkaline Phosphatase (< 127 U/L) 79 Creatine Kinase (55 - 170 U/L) 57 Troponin I (<0.11 ng/ml) 0.36 *H Total Protein (6.3 - 8.2 g/dL) 6.4 Albumin (3.5 - 5.0 g/dL) 3.5 Globulin (1.9 - 4.2 gm/dL) 2.9 Albumin/Globulin Ratio (1.1 - 2.2 %) 1.2 TSH (0.270 - 4.200 uIU/mL) 1.310 Free T4 (0.78 - 2.44 ng/dL) 0.92 Hematology CBC w Diff NO MAN DIFF REQ WBC (4.8 - 10.8 /CUMM) 15.1 H RBC (4.70 - 6.10 /CUMM) 4.67 L Hgb (14.0 - 18.0 G/DL) 14.3 Hct (42 - 52 %) 41.5 L MCV (80.0 - 94.0 FL) 88.9 MCH (27.0 - 31.0 PG) 30.6 RDW (11.5 - 14.5 %) 13.9 Plt Count (130 - 400 /CUMM) 192 MPV (7.4 - 10.4 FL) 9.1 Gran % (42.2 - 75.2 %) 91.5 H Lymphocytes % (20.5 - 51.1 %) 1.4 L Monocytes % (1.7 - 9.3 %) 7.0 Eosinophils % (0 - 5 %) 0 Basophils % (0.0 - 2.0 %) 0.1 Absolute Granulocytes (1.4 - 6.5 /CUMM) 13.8 H Absolute Lymphocytes (1.2 - 3.4 /CUMM) 0.2 L Absolute Monocytes (0.10 - 0.60 /CUMM) 1.1 H Absolute Eosinophils (0.0 - 0.7 /CUMM) 0 Absolute Basophils (0.0 - 0.2 /CUMM) 0 PUBS MCHC (33.0 - 37.0 G/DL) 34.4 Urines Urine Color (YEL,AMB,STR) YEL Urine Clarity (CLEAR) CLEAR Urine pH (5.0 - 8.0) 6.0 Ur Specific [place] (1.001 - 1.035) 1.025 Urine Protein (NEG,<30 MG/DL) 100 H Urine Ketones (NEG) TRACE H Urine Nitrite (NEG) NEG Urine Bilirubin (NEG) NEG Urine Urobilinogen (0.1 - 1.0 EU/dl) 1.0 Ur Leukocyte Esterase (NEG) NEG Ur Microscopic SEDIMENT EXAMINED Urine RBC (0 - 5 /HPF) 5-10 H Urine WBC (0 - 2 /HPF) 15-25 H Ur Epithelial Cells (NONE,FEW) OCCAS Urine Hemoglobin (NEG) MOD H Urine Glucose (N MG/DL) NEG Diagnostic Data EKG Results EKG on admission shows sinus tachycardia at a rate of 109 with right bundle branch block and right axis deviation. This is similar to a previous tracing except for the rate is faster. 2 additional electrocardiograms done this morning are similar. CXR Results PATIENT: BRENDEN BELL PRESENT AGE: 76 PATIENT ACCOUNT NO: [id number] : 38 LOCATION: [facility] ORDERING PHYSICIAN: LULU HARVEY MD SERVICE DATE: 12/15/16 EXAM TYPE: RAD - XRY-PORTABLE CHEST XRAY EXAMINATION: XR PORTABLE CHEST CLINICAL INFORMATION: Fever. Weakness. Pneumonia. COMPARISON: Chest radiography 07/10/2014. TECHNIQUE: Portable AP view of the chest was obtained. FINDINGS: Sternotomy wires and mediastinal surgical clips noted. The lungs are well expanded. Mild left basilar opacification. No pulmonary edema, pleural effusion, or pneumothorax. No mediastinal widening. No acute osseous abnormalities. IMPRESSION: Mild left basilar opacification, consider atelectasis or other subtle consolidation. DICTATED BY: BOB HERNANDEZ MD DATE/TIME DICTATED:12/15/162144 ENROLLMENT MANAGER:VANESSA DATE/TIME TRANSCRIBED:12/15/162144 CONFIDENTIAL, DO NOT COPY WITHOUT APPROPRIATE AUTHORIZATION. <Electronically signed in Other Vendor System> SIGNED BY: BOB HERNANDEZ MD 12/15/162150 Assessment/Plan Assessment/Plan This patient presents with generalized weakness and a febrile illness 24 hours after a vascular procedure. He has underlying coronary artery disease which according to his history is inoperable. He has developed a troponin rise. Auscultation is suggestive of pericarditis although his EKG does not show any diagnostic changes. His chest x-ray shows a little haziness in the left side but not definite pneumonia. He has positive blood cultures. I suspect that he has sepsis secondary to his vascular procedure resulting in a troponin rise due to underlying coronary artery disease and demand ischemia. His echocardiogram documented some regional wall motion abnormalities consistent with underlying coronary disease and previous myocardial infarction. He also has a very small pericardial effusion which may account for the rub that the I heard. This will need to be monitored as septic pericarditis can be a very severe serious condition if it occurs. He has been started on heparin because of his troponin rise. If he does not have any further EKG changes after 24 hours then this probably can be discontinued. It would be important to get his old records from the [facility] to determine the exact state of his underlying coronary artery disease. Consult Acknowledgment - Thank you for your consult request.
[2016-12-16 10:08] LABS: ABSOLUTE BASOPHIL COUNT 0 /CUMM (0.0-0.2); ABSOLUTE EOSINOPHIL COUNT 0 /CUMM (0.0-0.7); ABSOLUTE GRANULOCYTE CT 11.3 /CUMM (1.4-6.5); ABSOLUTE LYMPH COUNT 0.2 /CUMM (1.2-3.4); ABSOLUTE MONOCYTE COUNT 0.3 /CUMM (0.10-0.60); BASOPHIL % 0.1 % (0.0-2.0); EOSINOPHIL % 0 % (0-5); GRANULOCYTE % 95.9 % (42.2-75.2); HEMATOCRIT 36.7 % (42-52); MEAN CORPUSCULAR HGB 30.6 PG (27.0-31.0); MEAN CORPUSCULAR HGB CONC 33.8 G/DL (33.0-37.0); MEAN CORPUSCULAR VOLUME 90.7 FL (80.0-94.0); MEAN PLATELET VOLUME 9.6 FL (7.4-10.4); PLATELET COUNT 139 /CUMM (130-400); RBC DISTRIBUTION WIDTH 13.9 % (11.5-14.5); RED BLOOD CELL CT 4.05 /CUMM (4.70-6.10); WHITE BLOOD CELL COUNT 11.8 /CUMM (4.8-10.8)
--- NOTE | 2016-12-16 12:49 | NUR ---
LATE ENTRY: PT HAD BP OF 100/60 WAS INSTRUCTED TO HOLD NITRO PACH, NIFEDIPINE, IMDUR AND TAMULOSIAN PER BARON.
--- NOTE | 2016-12-16 12:52 | NUR ---
TOLD BY DR RUBY TO CONTINUE TO HOLD THOSE CARDIAC MED NOT GIVEN THIS AM AND WAIT TO GIVE LASIX TIL XRAY IS READ.
--- NOTE | 2016-12-16 12:54 | PN- Att Addend ---
Attending Addendum Attending Brief Note Patient seen and examined earlier on today. He was resting comfortably at that time. Denied chest pain or shortness of breath. Complained of generalized malaise. Complained of difficulty walking due to weakness. had reported episodes of aspiration on and off at home or doing frequently and particularly with fluids. He has a history of coronary artery disease status post bypass surgery. reports that he has subsequently developed obstructive disease again however he is no longer deemed a candidate for surgical intervention. Patient also has carotid artery stenosis and is scheduled to have stent placement in the future. When I reevaluated patient later on to update him and about blood culture results he was complaining of shortness of breath. Was saturating 90% on 4 L of oxygen. Saturations improved to 93% on 5 L of oxygen. He denied any chest pain. Denied palpitations. No events on the engine monitor. Gen. appearance: Elderly. Mild respiratory distress. No use of accessory muscles. HEENT: Anicteric, no palpable Heart: S1-S2 regular, no audible normal Lungs: Bibasilar crackles. Abdomen: Soft, nontender with normal bowel sounds small ecchymotic area right groin. No significant swelling. No tenderness. No discharge. Extremities: No pedal edema Neurologic: No gross focal deficits Laboratory Tests 12/16/16 0945: Anion Gap 13, Estimated GFR > 60, BUN/Creatinine Ratio 32.2 H, Troponin I 6.09 *H, CBC w Diff MAN DIFF ORDERED, RBC 4.05 L, MCV 90.7, MCH 30.6, RDW 13.9, MPV 9.6, Gran % 95.9 H, Lymphocytes % 1.8 L, Monocytes % 2.2, Eosinophils % 0, Basophils % 0.1, Absolute Granulocytes 11.3 H, Segmented Neutrophils 92 H, Band Neutrophils 5, Absolute Lymphocytes 0.2 L, Lymphocytes 1 L, Monocytes 2, Absolute Monocytes 0.3, Absolute Eosinophils 0, Absolute Basophils 0, Platelet Estimate DECREASED, Normocytic RBCs VERIFIED, Normochromic RBCs VERIFIED, PUBS MCHC 33.8 12/16/16 0310: Troponin I 2.96 *H 12/15/16 2329: Lactic Acid 1.2 12/15/16 2108: Anion Gap 13, Estimated GFR > 60, BUN/Creatinine Ratio 28.6 H, Glucose 207 H, Lactic Acid 1.3, Calcium 8.6, Magnesium 1.6, Total Bilirubin 1.1, AST 20, ALT 35 , Alkaline Phosphatase 79, Creatine Kinase 57, Troponin I 0.36 *H, Total Protein 6.4, Albumin 3.5, Globulin 2.9, Albumin/Globulin Ratio 1.2, TSH 1.310, Free T4 0.92, Urine Color YEL, Urine Clarity CLEAR, Urine pH 6.0, Ur Specific [place] 1.025, Urine Protein 100 H, Urine Ketones TRACE H, Urine Nitrite NEG, Urine Bilirubin NEG, Urine Urobilinogen 1.0, Ur Leukocyte Esterase NEG, Ur Microscopic SEDIMENT EXAMINED, Urine RBC 5-10 H, Urine WBC 15-25 H, Ur Epithelial Cells OCCAS, Urine Hemoglobin MOD H, Urine Glucose NEG 12/15/162039: CBC w Diff NO MAN DIFF REQ, RBC 4.67 L, MCV 88.9, MCH 30.6, RDW 13.9, MPV 9.1, Gran % 91.5 H, Lymphocytes % 1.4 L, Monocytes % 7.0, Eosinophils % 0, Basophils % 0.1, Absolute Granulocytes 13.8 H, Absolute Lymphocytes 0.2 L, Absolute Monocytes 1.1 H, Absolute Eosinophils 0, Absolute Basophils 0, PUBS MCHC 34.4 Microbiology 12/16 11 LOWER RESP: Res[facility] - [facility] 12/16 11 LOWER RESP: Gram Stain - [facility] 12/16 10 URINE ROUT: Legionella Antigen - [facility] 12/16 10 URINE ROUT: Streptococcus pneumoniae Antigen (M - [facility] 12/16 10 URINE ROUT: Urine Culture - [facility] 12/15 2109 NASOPHARYN: Influenza Virus A & B Rapid Smear - COMP 12/15 2099 BLOOD: Blood Culture - RES GRAM POSITIVE COCCI 12/15 2039 BLOOD: Blood Culture - RES GRAM POSITIVE COCCI Problems: 1. Sepsis secondary to gram-positive bacteremia; probably related to recent procedure 2. Acute hypoxic respiratory failure 3. Non-ST elevation myocardial infarction 4. Known obstructive coronary artery disease. Being managed conservatively 5. Carotid artery stenosis with a stent placement 6. Peripheral vascular disease status post lower extremity angiogram 7. Hypotension; a.m. blood pressure medications were held and his blood pressure was 100 systolic. 8. [id number] diabetes mellitus. Plan: -Repeat chest x-ray. If evidence of volume overload administer Lasix 20 mg IV 1. -Add vancomycin to regimen. Continue empiric therapy for pneumonia -Follow-up blood and urine culture results. -In light of his cardiac enzymes are continue to trend upwards, worsening hypoxemia and complaints of shortness of breath recommend further management in the intensive care unit. Patient remains a full code for now. -Continue aspirin and Plavix. He is currently on IV heparin. -Continue statin therapy and beta malorie therapy. Nifedipine and Imdur were held this morning due to low blood pressure. If blood pressure remains stable. Resume these medications starting first with Imdur. -Repeat CBC to ensure that his hemoglobin level is stable in the setting of dual antiplatelet therapy and IV heparin infusion. -Repeat EKG. -Please notify the critical care service employee relations representative and forming tube selector Dr. Jimenez.
--- NOTE | 2016-12-16 12:58 | ECHOCARDIOGRAM REPORT ---
CAITY BELL Age: 76 : 1940 Gender: M Exam Date: 12/16/2016 08:14 Exam Location: [address] Ht (in): 72 Wt (lb): 185 BSA: 2.07 BP: 102 / 58 Ordering Physician: JEAN SYED M Referring Physician: Yayo Jimenez MD Chief, SoC Technologist: Rosita Pryor [facility] Room Number: 171 Indications: CHEST PAIN Rhythm: Sinus Technical Quality: Good FINDINGS Left Ventricle Normal size left ventricle. Mild concentric left ventricular hypertrophy. The inferior and posterobasilar ortiz are akinetic. The other ortiz contract fairly well. Estimated ejection fraction is 45%."pseudonormal" filling pattern of the left ventricle for age (stage 2 diastolic dysfunction). Right Ventricle The right ventricle is normal in size and function. Right Atrium The right atrium is normal in size. Left Atrium Mild left atrial dilatation. Mitral Valve Mild thickening/calcification of the mitral valve leaflets. Mild-to- moderate mitral regurgitation. Aortic Valve Focal thickening of the aortic valve cusps. No aortic stenosis. Mild aortic regurgitation. Tricuspid Valve Structurally normal tricuspid valve. Mild tricuspid regurgitation. Right ventricular systolic pressure estimated to be at upper limits of normal at 30-35 mmHg. Pulmonic Valve Structurally normal pulmonic valve. There is mild pulmonic regurgitation. Pericardium There is a trace to small pericardial effusion seen. There is no pleural effusion seen. Great Vessels Normal size aortic root. The IVC is mildly dilated. CONCLUSIONS Mild concentric left ventricular hypertrophy. The inferior and posterobasilar ortiz are akinetic. The other ortiz contract fairly well. Estimated ejection fraction is 45%. "pseudonormal" filling pattern of the left ventricle for age (stage 2 diastolic dysfunction). Mild left atrial dilatation. Mild thickening/calcification of the mitral valve leaflets. [id number] mitral regurgitation. Focal thickening of the aortic valve cusps. No aortic stenosis. Mild aortic regurgitation. Right ventricular systolic pressure estimated to be at upper limits of normal at 30-35 mmHg. The IVC is mildly dilated. There is a trace to small pericardial effusion seen. Yayo Jimenez M.D. (Electronically Signed) Final Date: 16 December 2016 12:57 MEASUREMENTS (Male / Female) Normal Values 2D ECHO LV Diastolic Diameter PLAX 4.4 cm 4.2 - 5.9 / 3.9 - 5.3 cm LV Systolic Diameter PLAX 3.6 cm 2.1 - 4.0 cm LV Fractional Shortening PLAX 18.2 % 25 - 46 % LV Ejection Fraction 2D Teich 37.9 % IVS Diastolic Thickness 1.2 cm LVPW Diastolic Thickness 1.2 cm LV Relative Wall Thickness 0.5 RV Internal Dim ED PLAX 3.1 cm 1.9 - 3.8 cm LVOT Diameter 1.9 cm Aortic Root Diameter 3.1 cm LA Systolic Diameter LX 4.4 cm 3.0 - 4.0 / 2.7 - 3.8 cm LA Volume 59.0 cm 18 - 58 / 22 - 52 cm Ascending Aorta Diameter 2.6 cm DOPPLER AV Peak Velocity 121.0 cm/s AV Peak Gradient 5.9 mmHg AV Mean Velocity 84.9 cm/s AV Mean Gradient 3.0 mmHg AV Velocity Time Integral 23.6 cm LVOT Peak Velocity 88.7 cm/s LVOT Peak Gradient 3.1 mmHg LVOT Mean Velocity 60.5 cm/s LVOT Mean Gradient 2.0 mmHg LVOT Velocity Time Integral 15.9 cm LVOT Stroke Volume 45.1 cm AV Area Cont Eq vti 1.9 cm AV Area Cont Eq pk 2.1 cm MV Peak Velocity 120.0 cm/s MV Peak Gradient 5.8 mmHg MV Mean Velocity 62.1 cm/s MV Mean Gradient 2.0 mmHg Mitral E Point Velocity 110.0 cm/s Mitral A Point Velocity 63.7 cm/s Mitral E to A Ratio 1.7 MV PHT Velocity 122.0 cm/s MV Deceleration [place] 433.0 cm/s MV Pressure Half Time 84.5 ms MV Area PHT 2.6 cm MV Deceleration Time 180.0 ms TR Peak Velocity 241.0 cm/s TR Peak Gradient 23.2 mmHg Right Atrial Pressure 10.0 mmHg Pulmonary Artery Systolic Pressu 33.2 mmHg Right Ventricular Systolic Press 33.2 mmHg PV Peak Velocity 91.0 cm/s PV Peak Gradient 3.3 mmHg PV Mean Velocity 64.9 cm/s PV Mean Gradient 2.0 mmHg PV Velocity Time Integral 17.5 cm LV E' Lateral Velocity 8.9 cm/s Mitral E to LV E' Lateral Ratio 12.4 LV E' Septal Velocity 5.6 cm/s Mitral E to LV E' Septal Ratio 19.8
[2016-12-16 13:29] LABS: PTT 96 SEC (25-37)
--- NOTE | 2016-12-16 13:53 | NUR ---
1320: SUBLINGUAL NITRO GIVEN 1353: 2MG IV MORPHINE GIVEN
--- NOTE | 2016-12-16 14:03 | RADIOLOGY REPORT ---
EXAMINATION: XR PORTABLE CHEST CLINICAL INFORMATION: Sudden onset difficulty breathing. Evaluate for pneumonia or fluid the lungs. COMPARISON: Chest x-ray dated 12/15/2016 and 07/10/2014. TECHNIQUE: Portable AP semierect view of the chest was obtained. FINDINGS: The patient is status post median sternotomy and CABG surgery. The cardiomediastinal silhouette is within normal limits in size. Calcification of the aortic arch is seen. There is hazy parenchymal opacity present in the left mid and lower lung, suspicious for pneumonia. Mild right basilar linear opacities are seen, consistent with subsegmental atelectasis. There may be mild central vascular congestion. No evidence of overt pulmonary edema. No pneumothorax. Osteopenia is seen with degenerative changes in the right acromioclavicular joint and mild spurring in the mid and lower thoracic spine. IMPRESSION: 1. Findings suspicious for subtle pneumonia in the left mid and lower lung. 2. Mild subsegmental atelectasis right lung base. 3. Probable mild central vascular congestion without overt pulmonary edema.
[2016-12-16 16:00] VITALS: BP 118/52
--- NOTE | 2016-12-16 18:06 | NUR ---
PT SAT 89-91% ON HIFLO. ATTEMPTED PARTIAL NON REBREATHER PT STATING HE FEELS LIKE HE CAN'T BREATHE, PLACED BACK ON HIFLO. RT PEPE TO PLACE PT ON BIPAP. PT TACHY AT 130. MD LEE AT BEDSIDE.
--- NOTE | 2016-12-16 18:49 | NUR ---
MCNEILL PLACED AT THIS TIME. LASIX 20MG IV GIVEN. STAT CBC DRAWN AND SENT. FAMILY UPDATED BY MD HAMLIN
--- NOTE | 2016-12-16 18:55 | NUR ---
NITRO PATCH REMOVED PER MD HAMLIN
--- NOTE | 2016-12-16 19:09 | Event Note ---
Event Note Event Note: Around 12.20 pm, Patient reported of shortness of breath at rest. HE was gasping for air while talking and his troponins 3rd set came back to b 6.09. Dr Jimenez was informed about his rising troponins and a STAT CXR was ordered. On Examination, patient had coarse crackles in b/l lung bases. It was decied that if the patient has congested lungs or pleural effsuions, he will be given one time 40 IV lasix. However Patient's blood pressure continued to be boaderline at systolic pressure of 100 and CXR was also negative for pulmonary edema. Patient was transfered to ICU for closer monitoring.
[2016-12-16 19:10] LABS: ABSOLUTE BASOPHIL COUNT 0 /CUMM (0.0-0.2); ABSOLUTE EOSINOPHIL COUNT 0 /CUMM (0.0-0.7); ABSOLUTE LYMPH COUNT 0.3 /CUMM (1.2-3.4); ABSOLUTE MONOCYTE COUNT 0.3 /CUMM (0.10-0.60); BASOPHIL % 0.1 % (0.0-2.0); EOSINOPHIL % 0 % (0-5); MEAN CORPUSCULAR HGB 30.6 PG (27.0-31.0); MEAN CORPUSCULAR HGB CONC 33.8 G/DL (33.0-37.0); MEAN CORPUSCULAR VOLUME 90.5 FL (80.0-94.0); MEAN PLATELET VOLUME 10.1 FL (7.4-10.4); PLATELET COUNT 145 /CUMM (130-400); RED BLOOD CELL CT 4.42 /CUMM (4.70-6.10); WHITE BLOOD CELL COUNT 10.6 /CUMM (4.8-10.8)
--- NOTE | 2016-12-16 19:13 | Event Note ---
Event Note Event Note: This patient was transferred from tele to ICU this afternoon due to increasing troponin and worsening hypoxemia in the afternoon. At 2pm, repeat CXR showed probable mild central vascular congestion without overt pulmonary edema. Echocardiogram showed EF 45% with stage 2 diastolic dysfunction, RVSP 30-35mmHg, trace to small pericardial effusion seen. Patient was on 3 different IV antibiotics including IV ceftriaxone/azithromycin/ vancomycin for gram possitive cocci (clusters). I spoke with Dr. Breaux regarding these IV abx, and he'll see the patient tmr. Regarding increasing troponin level (6.09 -> 9.39), we spoke with Dr. Jimenez, and he'll be continued on IV heparin and po b-malorie for now. No plan for transfer at this point. Other antihypertensives were discontinued due to borderline pressure. Around 6:26 pm, patient c/o dyspnea, RR was increased to 40 with 89% on 4L, he was placed on BiPAP. 1 dose of IV lasxix 20mg was given after speaking with Dr. Phelan. Cates was inserted. Family member at bedside(daughter, Sunshine) was updated about his condition. I spoke with Dr. Montoya and Dr. Dale regarding patient's condition. While on BiPAP, pt improved with RR decreased to 22 with PO2 91%, will get ABG and continue monitor pt in ICU. Patient & family agree to get intubation/central line if these procedures are needed. Corinne Beltre PGY 4 IM/PM
[2016-12-16 19:19] LABS: GRANULOCYTE % 94.7 % (42.2-75.2)
[2016-12-16 21:59] LABS: PT 14.9 SEC (9.4-12.5); PTT 57 SEC (25-37)
--- NOTE | 2016-12-16 22:47 | NUR ---
RECTAL TEMP 104.8, SERO MADE AWARE. COOLING BLANKET ORDERED AND APPLIED. RECTAL TEMP 104.7 ON COOLING MACHINE. WILL CONT TO MONITOR.
--- NOTE | 2016-12-16 23:34 | NUR ---
2039= AXILLARY TEMP 102.5. MD FLORES MADE AWARE. PO TYLENOL GIVEN. 2109= PT INCREASING AGITATION, ATTEMPTING TO REMOVE BIPAP, ATTEMPTS TO GET OOB. HR 120'S SINUS TACH. MD MARIEE MADE AWARE IV ATIVAN GIVEN WITH GOOD EFFECT. 2129= AXILLARY TEMP 102.3
[2016-12-17] VITALS: BP 100/48
[2016-12-17 03:48] LABS: ABSOLUTE BASOPHIL COUNT 0 /CUMM (0.0-0.2); ABSOLUTE EOSINOPHIL COUNT 0 /CUMM (0.0-0.7); ABSOLUTE GRANULOCYTE CT 7.7 /CUMM (1.4-6.5); ABSOLUTE LYMPH COUNT 0.4 /CUMM (1.2-3.4); ABSOLUTE MONOCYTE COUNT 0.2 /CUMM (0.10-0.60); BASOPHIL % 0.1 % (0.0-2.0); EOSINOPHIL % 0 % (0-5); GRANULOCYTE % 91.6 % (42.2-75.2); HEMATOCRIT 36.2 % (42-52); MEAN CORPUSCULAR HGB 30.5 PG (27.0-31.0); MEAN CORPUSCULAR HGB CONC 33.9 G/DL (33.0-37.0); MEAN CORPUSCULAR VOLUME 90.2 FL (80.0-94.0); MEAN PLATELET VOLUME 9.4 FL (7.4-10.4); PLATELET COUNT 135 /CUMM (130-400); RBC DISTRIBUTION WIDTH 14.1 % (11.5-14.5); RED BLOOD CELL CT 4.02 /CUMM (4.70-6.10); WHITE BLOOD CELL COUNT 8.4 /CUMM (4.8-10.8)
[2016-12-17 04:10] LABS: PTT 117 SEC (25-37)
[2016-12-17 08:00] VITALS: BP 170/90
--- NOTE | 2016-12-17 08:29 | Cons- CRCU ---
LUCIO DEE,JESUS 12/17/16 0829: General Information and HPI Consulting Request Date of Consult: 12/17/16 Requested By: Dr Zhane Mendez Reason for Consult: Acute respiratory distress Source of Information: patient, family Exam Limitations: patient is on BiPAP focusing this morning History of Present Illness: 68-year-old male with past medical history significant for hypertension, hyperlipidemia, peripheral vascular disease, bladder cancer diagnosed over one year ago, oral HSV, CAD with a triple bypass in 1993, who has all his routine medical care at the [place], who presents with chief complaint of lower extremity weakness, fever, chills. Patient had recent vascular procedure on 12/14/2016 at the [place]. He had what sounds like a balloon angioplasty without stent in his left leg with access in his right groin. The procedure was done on outpatient basis and he was discharged home on the same day. Patient said he felt slightly below his baseline right after the procedure, but he slept well overnight. Starting yesterday morning he did endorse chills, and subsequent weakness. By afternoon he said he couldn't get out of the chair or out of his bed. His called the ambulance and he was brought to [facility]. He denies any abdominal pain, chest pain, nausea, vomiting, dysuria, hematuria, hematochezia, or shortness of breath. Denies any smoking, alcohol or IV drug abuse. He does endorse history of frequent UTIs secondary to bladder cancer. Last UTI 6 months ago. He was initially admitted to the general medical floor and was later transferred because of worsening shortness of breath, increased troponins in his lab tests to the ICU yesterday. He was tachypneic and tachycardic when he came to the ICU , but his respiratory status detoriated around 6 PM yesterday and he was put on BiPAP from high flow nasal cannula. His family is aware, and the ICU team has been trying to get hold of his medical records from the [facility]. Allergies/Medications Allergies: Coded Allergies: Penicillins (HIVES 12/15/16) Home Med List: Acyclovir 200 MG CAPSULE 1 CAP PO BID COLD SORES (Reported) Aspirin (Aspirin*) 81 MG TAB.CHEW 1 TAB PO DAILY HEART (Reported) Atorvastatin Calcium (Lipitor) 80 MG TABLET 0.5 TAB PO DAILY CHOLESTEROL ( Reported) Carvedilol 12.5 MG TABLET 0.5 TAB PO BID HEART/BP (Reported) Clopidogrel Bisulfate (Plavix) 75 MG TABLET 1 TAB PO DAILY BLOOD THINNER ( Reported) Finasteride 5 MG TABLET 1 TAB PO DAILY PROSTATE (Reported) Hydrochlorothiazide 25 MG TABLET 1 TAB PO DAILY DIURETIC/BP (Reported) Isosorbide Mononitrate (Isosorbide Mononitrate ER) 60 MG TAB.ER.24H 0.5 TAB PO QAM CHEST/ANGINA (Reported) Metformin HCl 500 MG TABLET 1 TAB PO BID DM (Reported) Nifedipine (Procardia XL) 60 MG TAB.ER.24 1 TAB PO DAILY BP/HEART (Reported) Nitroglycerin 400 MCG/SPRAY SPRAY 1 SPRAY SL 4XDAILY PRN CHEST/JAW DISCOMFORT (Reported) Nitroglycerin (Minitran) 0.4 MG/HOUR PATCH.TD24 1 PATCH TOP DAILY CHEST PAIN (Reported) Omeprazole 20 MG TABLET.DR 1 TAB PO DAILY AC GI (Reported) Ranolazine (Ranexa) 500 MG TAB.ER.12H 1 TAB PO BID ANGINA/CHEST PAIN ( Reported) Tamsulosin HCl (Flomax) 0.4 MG CAP.ER.24H 1 CAP PO DAILY PROSTATE (Reported) Review of Systems Review of Systems Constitutional: Reports: no symptoms. EENTM: Reports: no symptoms. Cardiovascular: Reports: no symptoms. Respiratory: Reports: see HPI, orthopnea, short of breath. Denies: cough, hemoptysis, sputum production, stridor, wheezing. GI: Reports: no symptoms. Genitourinary: Reports: no symptoms. Musculoskeletal: Reports: no symptoms. Skin: Reports: no symptoms. Neurological/Psychological: Reports: no symptoms. Hematologic/Endocrine: Reports: no symptoms. All Other Systems: Reviewed and Negative Past History Travel History Traveled to [place] past 21 day No Medical History Cardiovascular: CAD, hypertension, hyperlipidemia, PVD, QUADRUPLE BYPASS Musculoskeletal: PVD Cancer(s): bladder Surgical History Surgical History: Balloon Angio of LLE. Psychosocial History Where Do You Live? Home Who Do You Live With? spouse Services at Home: None Primary Language: Sinhala Smoking Status: Never Smoked ETOH Use: denies use Illicit Drug Use: denies illicit drug use Functional Ability ADLs Independent: dressing, eating, toileting, bathing. Employment History Employment: [employer] Exam & Diagnostic Data Last 24 Hrs of Vital Signs/I&O Vital Signs Date Time Temp Pulse Resp B/P Pulse O2 O2 Flow FiO2 Ox Delivery Rate 12/17 1429 100 12/17 1315 100 12/17 1133 100 12/17 1022 92 12/17 0800 88 BIPAP 90% 12/17 0800 99.3 124 36 170/90 88 BIPAP 90% 12/17 0800 113 85 12/17 0540 74 93 12/17 0400 92 BIPAP 50% 12/17 0303 73 94 12/17 0032 85 99 12/17 0019 86 99 12/17 0016 92 99 12/17 0000 103.5 90 26 100/48 97 BIPAP 70% 12/17 0000 97 BIPAP 70% 12/16 2240 104.7 12/16 2201 100 94 12/16 2129 102.3 12/16 2041 115 145/62 12/16 2040 102.5 12/16 2040 115 145/62 12/16 2000 94 BIPAP 70% 12/16 1945 105 94 12/16 1800 94 BIPAP 70% 12/16 1800 115 93 Intake & Output 12/17 1600 12/17 0800 12/17 0000 Intake Total 896 971 Output Total 210 650 Balance 686 321 Intake, IV 876 691 Intake, Oral 20 280 Number 1 0 Bowel Movements Output, Urine 210 650 Physical Exam General Appearance: well developed/nourished, alert, awake, anxious, mild distress Other Physical Findings: Head: Normocephalic, atraumatic Eyes: Pupils normal in size, regular, reacting to light and accommodation, EOM normal Ears: B/l normal on inspection Nose: Normal on inspection Throat/mouth: Dry mucosa Neck: Supple, full range of motion, no thyromegaly Heart: tachycardic, regular rhythm Lung: Mild-moderate resp distress, crackles heard bilaterally, no wheeze Abd: Soft, non-tender, no distention appreciated Back: Normal range of motion Extremities: Normal knee exam bilaterally, no pedal edema, Distal neurovascular intact Neurologic: Alert, anxious, oriented x3, Cranial exam grossly intact, Speech is clear and coherent Skin: Warm and dry Psychiatric: Anxious, cooperative, coherant Last 48 Hrs of Labs/Evens: Laboratory Tests 12/17/16 1530: Troponin I Pending 12/17/16 1215: pH 7.37, pCO2 31 L, pO2 65 L, HCO3 17 L, ABG O2 Sat (Measured) 90.0 L, P-50 (Temp Corrected) YES, Carboxyhemoglobin 0.6 L, O2 Concentration % 100%, Temperature 99.3, Respiration Rate 20, O2 Delivery Method VENT, Vent Mode AC, Expiratory Pressure 5, Tidal Volume 500, Phlebotomy Draw Site RIGHT RADIAL 12/17/16 0949: Troponin I 11.90 *H, APTT 53 H 12/17/16 0335: Phosphorus 3.0, Troponin I 16.00 *H 12/17/16 0335: Anion Gap 12, Estimated GFR > 60, BUN/Creatinine Ratio 45.0 H, Magnesium 2.2, APTT 117 *H, CBC w Diff MAN DIFF ORDERED, RBC 4.02 L, MCV 90.2, MCH 30.5, RDW 14.1, MPV 9.4, Gran % 91.6 H, Lymphocytes % 5.3 L, Monocytes % 3.0, Eosinophils % 0, Basophils % 0.1, Absolute Granulocytes 7.7 H, Absolute Lymphocytes 0.4 L, Absolute Monocytes 0.2, Absolute Eosinophils 0, Absolute Basophils 0, Platelet Estimate DECREASED, Ovalocytes 1+, PUBS MCHC 33.9 12/16/16 2105: Troponin I 12.20 *H, PT 14.9 H, INR 1.42 H, APTT 57 H 12/16/16 1945: pH 7.51 H, pCO2 25 L, pO2 75 L, HCO3 20 L, ABG O2 Sat (Measured) 95.0 L, Carboxyhemoglobin 0.3 L, O2 Concentration % 70%, Respiration Rate 28, O2 Delivery Method BIPAP, Vent Mode ST, Expiratory Pressure 6, Inspiratory Pressure 16, Phlebotomy Draw Site LEFT RADIAL 12/16/16 1836: CBC w Diff NO MAN DIFF REQ, RBC 4.42 L, MCV 90.5, MCH 30.6, RDW 14.0, MPV 10.1, Gran % 94.7 H, Lymphocytes % 2.5 L, Monocytes % 2.7, Eosinophils % 0, Basophils % 0.1, Absolute Granulocytes 10.0 H, Absolute Lymphocytes 0.3 L, Absolute Monocytes 0.3, Absolute Eosinophils 0, Absolute Basophils 0, PUBS MCHC 33.8 12/16/16 1520: Troponin I 9.39 *H 12/16/16 1245: APTT 96 H 12/16/16 0945: Anion Gap 13, Estimated GFR > 60, BUN/Creatinine Ratio 32.2 H, Troponin I 6.09 *H, CBC w Diff MAN DIFF ORDERED, RBC 4.05 L, MCV 90.7, MCH 30.6, RDW 13.9, MPV 9.6, Gran % 95.9 H, Lymphocytes % 1.8 L, Monocytes % 2.2, Eosinophils % 0, Basophils % 0.1, Absolute Granulocytes 11.3 H, Segmented Neutrophils 92 H, Band Neutrophils 5, Absolute Lymphocytes 0.2 L, Lymphocytes 1 L, Monocytes 2, Absolute Monocytes 0.3, Absolute Eosinophils 0, Absolute Basophils 0, Platelet Estimate DECREASED, Normocytic RBCs VERIFIED, Normochromic RBCs VERIFIED, PUBS MCHC 33.8 12/16/16 0310: Troponin I 2.96 *H 12/15/16 2329: Lactic Acid 1.2 12/15/16 2108: Anion Gap 13, Estimated GFR > 60, BUN/Creatinine Ratio 28.6 H, Glucose 207 H, Lactic Acid 1.3, Calcium 8.6, Magnesium 1.6, Total Bilirubin 1.1, AST 20, ALT 35 , Alkaline Phosphatase 79, Creatine Kinase 57, Troponin I 0.36 *H, Total Protein 6.4, Albumin 3.5, Globulin 2.9, Albumin/Globulin Ratio 1.2, TSH 1.310, Free T4 0.92, Urine Color YEL, Urine Clarity CLEAR, Urine pH 6.0, Ur Specific [place] 1.025, Urine Protein 100 H, Urine Ketones TRACE H, Urine Nitrite NEG, Urine Bilirubin NEG, Urine Urobilinogen 1.0, Ur Leukocyte Esterase NEG, Ur Microscopic SEDIMENT EXAMINED, Urine RBC 5-10 H, Urine WBC 15-25 H, Ur Epithelial Cells OCCAS, Urine Hemoglobin MOD H, Urine Glucose NEG 12/15/160: CBC w Diff NO MAN DIFF REQ, RBC 4.67 L, MCV 88.9, MCH 30.6, RDW 13.9, MPV 9.1, Gran % 91.5 H, Lymphocytes % 1.4 L, Monocytes % 7.0, Eosinophils % 0, Basophils % 0.1, Absolute Granulocytes 13.8 H, Absolute Lymphocytes 0.2 L, Absolute Monocytes 1.1 H, Absolute Eosinophils 0, Absolute Basophils 0, PUBS MCHC 34.4 Microbiology 12/15 2109 NASOPHARYN: Influenza Virus A & B Rapid Smear - COMP Diagnostic Data CXR Results Morning CXR: IMPRESSION: Worsening left-sided pneumonia. DICTATED BY: MARCO ANTONIO MCBRIDE MD DATE/TIME DICTATED:12/17/16930 BLOCKMASON:EMANUEL DATE/TIME TRANSCRIBED:12/17/16930 Post intubation CXR: IMPRESSION: Endotracheal and enteric tubes appear in satisfactory position although the tip of the nasogastric tube is not included.. DICTATED BY: MARCO ANTONIO MCBRIDE MD DATE/TIME DICTATED:12/17/161157 BLOCKMASON:EMANUEL DATE/TIME TRANSCRIBED:12/17/161157 Assessment/Plan Impression/Plan: 68-year-old male with past medical history significant for hypertension, hyperlipidemia, peripheral vascular disease, bladder cancer diagnosed over one year ago, oral HSV, CAD with a triple bypass in 1993, who has all his routine medical care at the [place], who presents with chief complaint of lower extremity weakness, fever, chills for 20 after having a vascular procedure at the [facility] a day prior to that. 68-year-old male with past medical history significant for hypertension, hyperlipidemia, peripheral vascular disease, bladder cancer diagnosed over one year ago, oral HSV, CAD with a triple bypass in 1993, who has all his routine medical care at the [place], who presents with chief complaint of lower extremity weakness, fever, chills. He is being managed in the ICU for the following issues: Respiratory Acute respiratory distress syndrome * Respiratory status of the patient has been waxing and waning, with respiratory distress yesterday around 6 PM when he was placed on BiPAP which subsequently normalized his heart rate and breathing rate from 130s and 40 respectively. He was on high flow nasal cannula prior to that. * This morning, he had another episode of respiratory distress, and his BiPAP settings were changed by Dr. Pretty after which he felt somewhat better. His vitals normalized again. Repeat chest x-ray showed symptoms of ARDS and possible worsening of pneumonia. But soon he was in respiratory distress again and given his condition including his rising troponin, decision was made to intubate the patient with sedation. Family was informed and patient, and his family had already given consent earlier for intubation if necessary. * Intubation was performed by the anesthesiologist, a repeat chest x-ray after intubation showed proper placement of endotracheal tube. * Patient is on vancomycin for possible pneumonia, and awaiting final culture and sensitivity reports Infectious disease Results of his blood culture shows gram-positive cocci in clusters possibly Staph, and the patient is already on vancomycin. Azithromycin and ceftriaxone has been discontinued as the culture has narrowed down to gram-positive cocci * Repeat blood culture has been sent today according to infectious disease service suggestion * Consider CT of the chest if fevers persist * Consider GEORGI if patient continues to deteriorate without possible explanation * Continue vancomycin pending final blood cultures Cardiovascular system Patient's previous echo shows ejection fraction of 45% with some wall motion abnormalities that appears to be chronic. Cardiology service has been consulted , which recommends getting records from the [facility] about recent vascular procedure. Patient continues to have increasing troponins, latest is 16 this morning. Given his situation, it is likely that his troponin is on the rise because of increased stress due to respiratory distress and sepsis. In this scenario, patient would benefit more from intubation rather than BiPAP. * Cardiology consult appreciated * We'll continue to try and EKG and troponins until it trends down Hematology Patient is being adequately correlated with heparin drip. * Continue IV heparin drip Metabolic Continue to follow chemistries and repeat electrolytes accordingly. IV fluids running. Alimentary * Since he was intubated today, he is kept nothing by mouth for now. IV fluids running. Neurology Patient had grossly normal neurological examination in the morning, except for anxiety due to his respiratory distress. Since he is on sedation for intubation , will continue to monitor him for adequate sedation. DVT prophylaxis with heparin drip CODE STATUS: Full code Consult Acknowledgment - Thank you for your consult request. MIKEL PRETTY MD 12/17/16 1208: Assessment/Plan Other Findings/Comments: Mikel Brown M.D. have examined this patient, reviewed available EMR data, personally reviewed images, discussed with resident/PA/COMMERCIAL FINANCE MANAGER, discussed management plan with housestaff and nursing staff, discussed managment plan all of healthcare providers, discussed management plan with patient and/or family, agreed with resident/PA/COMMERCIAL FINANCE MANAGER. The past history and parts of the chart have been autopopulated. Impression 76 year old man -hypoxemic respiratory failure etiology maybe secondary to non-cardiogenic edmea (ARDS)severe -elevated troponins nstemi -staph aureus bacteremia Plan Respiratory -worsening respiratory status -pt intubated by anesthesia given tachypnea, unable to complete full sentences, elevated troponin -will repeat cxr/abg/ngt placement ID -dc zithromax, ceftriaxone -cont vancomycin, f/u cultures -ID appreciated CVS -f/u cardiology recommendations -cont heparin drip Heme -heparin gtt, coag monitoring per protocol Metabolic -ins/outs -monitor electrolytes Alimentary -NPO for now Neuro -sedation to comfort DVT prophylaxis at all times (heparin gtt) TTS 60 min Consult Acknowledgment - Thank you for your consult request.
--- NOTE | 2016-12-17 09:37 | RADIOLOGY REPORT ---
EXAMINATION: XR PORTABLE CHEST CLINICAL INFORMATION: Follow-up pneumonia. COMPARISON: 12/16/2016. TECHNIQUE: Portable AP erect view of the chest was obtained. FINDINGS: Exam is rotated somewhat limiting evaluation. Poststernotomy changes are again noted with multiple intact sternal wires and probable CABG. There is increasing consolidative opacity identified in the left mid lung field most consistent with a left lower lobe pneumonia. There is blunting of the left costophrenic angle suggesting a developing effusion. Right lung remains clear. Osseous structures appear osteopenic. IMPRESSION: Worsening left-sided pneumonia.
--- NOTE | 2016-12-17 09:59 | PN- Cardiology ---
Subjective Subjective: The patient is now on BiPAP. He is short of breath. He continues to be febrile. His chest x-ray shows worsening pneumonia. His cardiac enzymes have continued to rise with the last troponin being 16. However there is no acute change in his electrocardiogram. He is not having any chest pain. He remains on IV heparin and antibiotics. Objective Vital Signs and I&Os Vital Signs Date Time Temp Pulse Resp B/P Pulse O2 O2 Flow FiO2 Ox Delivery Rate 12/17 0800 113 85 12/17 0540 74 93 12/17 0400 92 BIPAP 50% 12/17 0303 73 94 12/17 0032 85 99 12/17 0019 86 99 12/17 0016 92 99 12/17 0000 103.5 90 26 100/48 97 BIPAP 70% 12/17 0000 97 BIPAP 70% 12/16 2240 104.7 12/16 2201 100 94 12/169 102.3 12/16 204 115 145/62 12/16 2040 102.5 12/16 2040 115 145/62 12/16 2000 94 BIPAP 70% 12/16 1945 105 94 12/16 1800 94 BIPAP 70% 12/16 1800 115 93 12/16 1600 Nasal 60% Cannula 12/16 1600 100.3 92 22 118/52 92 Nasal 60% Cannula 12/16 1330 93 Nasal 60% Cannula Intake & Output 12/17 1600 12/17 0800 12/17 0000 12/16 1600 12/16 0800 12/16 0000 Intake Total 896 971 371.5 610 0 Output Total 210 650 100 175 Balance 686 321 271.5 435 0 Intake, IV 876 691 131.5 550 Intake, Oral 20 280 240 60 0 Number 1 0 1 Bowel Movements Output, Urine 210 650 100 175 Patient 152 lb 185 lb Weight Physical Exam: He looks in some distress on the mask. HEENT exam grossly normal Chest some rales on the left posterior chest Heart regular and rapid with no murmurs Extremities no edema Current Medications: Current Medications Sig/Damon Start time Last Medication Dose Route Stop Time Status Admin Acetaminophen 650 MG Q6P PRN 12/16 0015 AC 12/16 PO 2040 Acetaminophen/ 1 TAB Q6P PRN 12/16 0015 AC Hydrocodone Bitart PO Aspirin 81 MG DAILY 12/16 1000 AC 12/16 PO 0914 Atorvastatin Calcium 40 MG 1700 12/16 1700 AC 12/16 PO 1655 Azithromycin 500 MG DAILY@12/16 2200 DC 12/16 Dextrose/Water 250 ML IV 211 Carvedilol 6.25 MG BID 12/16 1000 AC 12/16 PO 2040 Ceftriaxone Sodium 1,000 MG DAILY@12/16 2200 AC 12/16 IV 2119 Clopidogrel Bisulfate 75 MG DAILY 12/16 1000 AC 12/16 PO 0914 Finasteride 5 MG DAILY 12/16 1000 AC 12/16 PO 0914 Furosemide 20 MG ONCE ONE 12/16 1830 DC 12/16 IV 12/16 183 1847 Heparin Sodium 2,175 UNIT BOLUS ONE 12/16 2200 DC 12/16 (Porcine) IV 12/16 220 2210 Heparin Sodium 25,000 UNIT Q24H 12/16 0530 AC 12/17 (Porcine) IV 0530 Sodium Chloride 500 ML Insulin Aspart 0 TIDAC 12/16 0800 AC 12/16 SC 1656 Isosorbide 30 MG QAM 12/16 1000 DC Mononitrate PO Lorazepam 1 MG ONCE ONE 12/16 2114 DC 12/16 IV 12/16 2115 211 Morphine Sulfate 2 MG ONCE ONE 12/16 1345 DC 12/16 IV 12/16 1346 1353 Nifedipine 60 MG DAILY 12/16 1000 DC PO Nitroglycerin 0.4 MG ONCE ONE 12/16 1330 DC 12/16 SL 12/16 1331 1322 Nitroglycerin 0.4 MG DAILY 12/16 1000 DC 12/16 TOP 1500 Omeprazole 20 MG DAILY AC 12/16 0700 AC 12/17 PO 0504 Oxycodone HCl 10 MG Q6P PRN 12/16 0015 AC PO Polyethylene Glycol 17 GM DAILY PRN 12/16 1015 AC PO Potassium Chloride 10 MEQ Q1H 12/17 0445 DC 12/17 IV 12/17 0546 0531 Ranolazine 500 MG BID 12/16 0010 AC 12/16 PO 2041 Sodium Chloride 500 ML .Q3H20M 12/17 0415 DC 12/17 IV 12/17 0734 0410 Sodium Chloride 1,000 ML ONCE ONE 12/16 0200 DC 12/16 IV 12/16 0959 0308 Tamsulosin HCl 0.4 MG DAILY 12/16 1000 AC PO Vancomycin HCl 1,000 MG Q12H 12/17 0300 AC 12/17 Dextrose/Water 250 ML IV 0206 Vancomycin HCl 1,000 MG Q12 12/16 1225 DC 12/16 Dextrose/Water 250 ML IV 1456 Vancomycin HCl 1,000 MG Q12H 12/16 0300 CAN Dextrose/Water 250 ML IV Results Last 48 Hrs of Labs/Mics: Laboratory Tests 12/17/16 0949: Troponin I Pending, APTT Pending 12/17/16 0335: Phosphorus 3.0, Troponin I 16.00 *H, Str-G-Typnmxbbhyr Pept Pending 12/17/16 0335: Anion Gap 12, Estimated GFR > 60, BUN/Creatinine Ratio 45.0 H, Magnesium 2.2, APTT 117 *H, CBC w Diff MAN DIFF ORDERED, RBC 4.02 L, MCV 90.2, MCH 30.5, RDW 14.1, MPV 9.4, Gran % 91.6 H, Lymphocytes % 5.3 L, Monocytes % 3.0, Eosinophils % 0, Basophils % 0.1, Absolute Granulocytes 7.7 H, Absolute Lymphocytes 0.4 L, Absolute Monocytes 0.2, Absolute Eosinophils 0, Absolute Basophils 0, Platelet Estimate DECREASED, Ovalocytes 1+, PUBS MCHC 33.9 12/16/16 2105: Troponin I 12.20 *H, PT 14.9 H, INR 1.42 H, APTT 57 H 12/16/16 1945: pH 7.51 H, pCO2 25 L, pO2 75 L, HCO3 20 L, ABG O2 Sat (Measured) 95.0 L, Carboxyhemoglobin 0.3 L, O2 Concentration % 70%, Respiration Rate 28, O2 Delivery Method BIPAP, Vent Mode ST, Expiratory Pressure 6, Inspiratory Pressure 16, Phlebotomy Draw Site LEFT RADIAL 12/16/16 1836: CBC w Diff NO MAN DIFF REQ, RBC 4.42 L, MCV 90.5, MCH 30.6, RDW 14.0, MPV 10.1, Gran % 94.7 H, Lymphocytes % 2.5 L, Monocytes % 2.7, Eosinophils % 0, Basophils % 0.1, Absolute Granulocytes 10.0 H, Absolute Lymphocytes 0.3 L, Absolute Monocytes 0.3, Absolute Eosinophils 0, Absolute Basophils 0, PUBS MCHC 33.8 12/16/16 1520: Troponin I 9.39 *H 12/16/16 1245: APTT 96 H 12/16/16 0945: Anion Gap 13, Estimated GFR > 60, BUN/Creatinine Ratio 32.2 H, Troponin I 6.09 *H, CBC w Diff MAN DIFF ORDERED, RBC 4.05 L, MCV 90.7, MCH 30.6, RDW 13.9, MPV 9.6, Gran % 95.9 H, Lymphocytes % 1.8 L, Monocytes % 2.2, Eosinophils % 0, Basophils % 0.1, Absolute Granulocytes 11.3 H, Segmented Neutrophils 92 H, Band Neutrophils 5, Absolute Lymphocytes 0.2 L, Lymphocytes 1 L, Monocytes 2, Absolute Monocytes 0.3, Absolute Eosinophils 0, Absolute Basophils 0, Platelet Estimate DECREASED, Normocytic RBCs VERIFIED, Normochromic RBCs VERIFIED, PUBS MCHC 33.8 12/16/16 0310: Troponin I 2.96 *H 12/15/16 2329: Lactic Acid 1.2 12/15/16 2108: Anion Gap 13, Estimated GFR > 60, BUN/Creatinine Ratio 28.6 H, Glucose 207 H, Lactic Acid 1.3, Calcium 8.6, Magnesium 1.6, Total Bilirubin 1.1, AST 20, ALT 35 , Alkaline Phosphatase 79, Creatine Kinase 57, Troponin I 0.36 *H, Total Protein 6.4, Albumin 3.5, Globulin 2.9, Albumin/Globulin Ratio 1.2, TSH 1.310, Free T4 0.92, Urine Color YEL, Urine Clarity CLEAR, Urine pH 6.0, Ur Specific [place] 1.025, Urine Protein 100 H, Urine Ketones TRACE H, Urine Nitrite NEG, Urine Bilirubin NEG, Urine Urobilinogen 1.0, Ur Leukocyte Esterase NEG, Ur Microscopic SEDIMENT EXAMINED, Urine RBC 5-10 H, Urine WBC 15-25 H, Ur Epithelial Cells OCCAS, Urine Hemoglobin MOD H, Urine Glucose NEG 12/15/160: CBC w Diff NO MAN DIFF REQ, RBC 4.67 L, MCV 88.9, MCH 30.6, RDW 13.9, MPV 9.1, Gran % 91.5 H, Lymphocytes % 1.4 L, Monocytes % 7.0, Eosinophils % 0, Basophils % 0.1, Absolute Granulocytes 13.8 H, Absolute Lymphocytes 0.2 L, Absolute Monocytes 1.1 H, Absolute Eosinophils 0, Absolute Basophils 0, PUBS MCHC 34.4 Microbiology 12/15 2109 NASOPHARYN: Influenza Virus A & B Rapid Smear - COMP Recent Imaging Studies: PATIENT: CAITY BELL PRESENT AGE: 76 PATIENT ACCOUNT NO: [id number] : 38 LOCATION: [facility] ORDERING PHYSICIAN: JESUS VALDES MD SERVICE DATE: 12/17/16 EXAM TYPE: RAD - XRY-PORTABLE CHEST XRAY EXAMINATION: XR PORTABLE CHEST CLINICAL INFORMATION: Follow-up pneumonia. COMPARISON: 12/16/2016. TECHNIQUE: Portable AP erect view of the chest was obtained. FINDINGS: Exam is rotated somewhat limiting evaluation. Poststernotomy changes are again noted with multiple intact sternal wires and probable CABG. There is increasing consolidative opacity identified in the left mid lung field most consistent with a left lower lobe pneumonia. There is blunting of the left costophrenic angle suggesting a developing effusion. Right lung remains clear. Osseous structures appear osteopenic. IMPRESSION: Worsening left-sided pneumonia. DICTATED BY: MARCO ANTONIO MCBRIDE MD DATE/TIME DICTATED:12/17/16930 HOME SALES SERVICE PROFESSIONAL:VANESSA DATE/TIME TRANSCRIBED:12/17/16930 Assessment/Plan Assessment/Plan The patient is acutely ill. He remains febrile despite being on IV antibiotics. He is growing staph aureus in the blood. His troponins are continuing to rise. Chest x-ray is worse. There is no evidence of heart failure. I recommend continuing on the same treatment. I recommend ID consultation. I recommend pulmonary consultation. We will attempt to get records from the [facility] especially recent cardiac catheterization etc. There should be some consideration for transferring this patient to the [facility] where he has gotten pretty much all of his care. Continue telemetry? Yes
[2016-12-17 10:14] LABS: PTT 53 SEC (25-37)
--- NOTE | 2016-12-17 10:16 | NUR ---
PT AWAKE, ORIENTED X 2 THIS AM. TACHYCARDIC, TACHYPNEA,AND O2 SATS DIPPPING INTO THE 80'S. RESIDENT NOTIFIED, RT AND NURSING AT BEDSIDE. DR. MARTINES IN, BIPAP SETTINGS ADJUSTED. O2 SAT IMPROVING.
--- NOTE | 2016-12-17 11:43 | Cons- Infect Disease ---
General Information and HPI Consulting Request Date of Consult: 12/17/16 Requested By: AMBREEN DEE,MERYL Reason for Consult: Positive blood cultures for gram-positive cocci in clusters Exam Limitations: clinical condition History of Present Illness: This is a 76-year-old man with a history of coronary artery disease, status post CABG over 20 years prior to admission and with a recent cardiac catheterization apparently revealing blockage for which no intervention was planned, bladder cancer, apparently currently undergoing intravesical treatment, with a history of recurrent urinary tract infections, diabetes, peripheral vascular disease, status post apparent balloon angioplasty of the left leg via the right groin at the [facility] one day prior to admission and discharged home the same day, with no further details available at this time, and with a history of intermittent aspiration, particularly with fluids, admitted on December 15 after he presented to the emergency room with the acute onset of chills and weakness. On admission he was febrile to 101.7. Laboratory data revealed a white blood cell count of 15,000, BUN/creatinine 20 and 0.7, normal liver enzymes, troponin 0.36. Urinalysis 5-10 RBC/15-25 WBCs. Chest x-ray revealed mild left basilar opacification. He was begun on Ceftriaxone and Azithromycin. On December 16 blood cultures 2 were reported positive for gram-positive cocci in clusters and Vancomycin was added. His troponin continued to increase and he reported increasing shortness of breath, with increasing oxygen requirements, and he was transferred into the ICU. He was given Lasix and placed on BiPAP. He remained febrile up to 104.7 overnight. This morning he was noted to have increased respiratory distress and is awaiting intubation. He does not report any pain at this time. Allergies/Medications Allergies: Coded Allergies: Penicillins (HIVES 12/15/16) Home Med List: Acyclovir 200 MG CAPSULE 1 CAP PO BID COLD SORES (Reported) Aspirin (Aspirin*) 81 MG TAB.CHEW 1 TAB PO DAILY HEART (Reported) Atorvastatin Calcium (Lipitor) 80 MG TABLET 0.5 TAB PO DAILY CHOLESTEROL ( Reported) Carvedilol 12.5 MG TABLET 0.5 TAB PO BID HEART/BP (Reported) Clopidogrel Bisulfate (Plavix) 75 MG TABLET 1 TAB PO DAILY BLOOD THINNER ( Reported) Finasteride 5 MG TABLET 1 TAB PO DAILY PROSTATE (Reported) Hydrochlorothiazide 25 MG TABLET 1 TAB PO DAILY DIURETIC/BP (Reported) Isosorbide Mononitrate (Isosorbide Mononitrate ER) 60 MG TAB.ER.24H 0.5 TAB PO QAM CHEST/ANGINA (Reported) Metformin HCl 500 MG TABLET 1 TAB PO BID DM (Reported) Nifedipine (Procardia XL) 60 MG TAB.ER.24 1 TAB PO DAILY BP/HEART (Reported) Nitroglycerin 400 MCG/SPRAY SPRAY 1 SPRAY SL 4XDAILY PRN CHEST/JAW DISCOMFORT (Reported) Nitroglycerin (Minitran) 0.4 MG/HOUR PATCH.TD24 1 PATCH TOP DAILY CHEST PAIN (Reported) Omeprazole 20 MG TABLET.DR 1 TAB PO DAILY AC GI (Reported) Ranolazine (Ranexa) 500 MG TAB.ER.12H 1 TAB PO BID ANGINA/CHEST PAIN ( Reported) Tamsulosin HCl (Flomax) 0.4 MG CAP.ER.24H 1 CAP PO DAILY PROSTATE (Reported) Past History Travel History Traveled to [place] past 21 day No Medical History EENT: oral HSV Cardiovascular: CAD, hypertension, hyperlipidemia, PVD Endocrine: diabetes Cancer(s): bladder History of MRSA: No History of VRE: No History of CDIFF: No Isolation History: Standard Influenza Vaccine: 08/28/16 Surgical History Surgical History: CABG, Balloon Angio of LLE. Psychosocial History Where Do You Live? Home Smoking Status: Never Smoked ETOH Use: denies use Illicit Drug Use: denies illicit drug use Functional Ability ADLs Independent: dressing, eating, toileting, bathing. Employment History Employment: [employer] Review of Systems Review of Systems All Other Systems: Reviewed and Negative Exam & Diagnostic Data Last 24 Hrs of Vital Signs/I&O Vital Signs Date Time Temp Pulse Resp B/P Pulse O2 O2 Flow FiO2 Ox Delivery Rate 12/17 1022 92 12/17 0800 88 BIPAP 90% 12/17 0800 99.3 124 36 170/90 88 BIPAP 90% 12/17 0800 113 85 12/17 0540 74 93 12/17 0400 92 BIPAP 50% 12/17 0303 73 94 12/17 0032 85 99 12/17 0019 86 99 12/17 0016 92 99 12/17 0000 103.5 90 26 100/48 97 BIPAP 70% 12/17 0000 97 BIPAP 70% 12/16 2240 104.7 02/19 2201 100 94 12/16 2128 102.3 12/16 2040 115 145/62 12/16 2039 102.5 12/16 2039 115 145/62 12/16 1999 94 BIPAP 70% 12/16 1944 105 94 12/16 1799 94 BIPAP 70% 12/16 1800 115 93 12/16 1600 Nasal 60% Cannula 12/16 1600 100.3 92 22 118/52 92 Nasal 60% Cannula 12/16 1330 93 Nasal 60% Cannula Intake & Output 12/17 1600 12/17 0800 12/17 0000 Intake Total 896 971 Output Total 210 650 Balance 686 321 Intake, IV 876 691 Intake, Oral 20 280 Number 1 0 Bowel Movements Output, Urine 210 650 Physical Exam Other Physical Findings: He is awake and alert in moderate respiratory distress, currently on BiPAP. MAXIMUM TEMPERATURE 104.7. Skin reveals no rash. HEENT exam is negative. Neck is supple with no adenopathy. Lungs mostly clear with scattered crackles on the left. Heart regular rhythm with no murmur. Abdomen is soft, nontender with positive bowel sounds. Back no CVA tenderness. Extremities right groin with no sign of inflammation; no cyanosis, clubbing or edema. Neuro is without focality. Cates catheter is in place. Last 24 Hours of Lab Results: Laboratory Tests 12/17 12/17 12/17 0949 0335 0335 Chemistry Sodium (137 - 145 mmol/L) 137 Potassium (3.5 - 5.1 mmol/L) 3.3 L Chloride (98 - 107 mmol/L) 102 Carbon Dioxide (22 - 30 mmol/L) 23 Anion Gap (5 - 16) 12 BUN (9 - 20 mg/dL) 36 H Creatinine (0.7 - 1.2 mg/dL) 0.8 Estimated GFR (>60 ml/min) > 60 BUN/Creatinine Ratio (7 - 25 %) 45.0 H Phosphorus (2.5 - 4.5 mg/dL) 3.0 Magnesium (1.6 - 2.3 mg/dL) 2.2 Troponin I (<0.11 ng/ml) 11.90 *H 16.00 *H [id number] Pept (<125 pg/mL) Pending Coagulation APTT (25 - 37 SEC) Pending 117 *H Hematology CBC w Diff MAN DIFF ORDERED WBC (4.8 - 10.8 /CUMM) 8.4 RBC (4.70 - 6.10 /CUMM) 4.02 L Hgb (14.0 - 18.0 G/DL) 12.3 L Hct (42 - 52 %) 36.2 L MCV (80.0 - 94.0 FL) 90.2 MCH (27.0 - 31.0 PG) 30.5 RDW (11.5 - 14.5 %) 14.1 Plt Count (130 - 400 /CUMM) 135 MPV (7.4 - 10.4 FL) 9.4 Gran % (42.2 - 75.2 %) 91.6 H Lymphocytes % (20.5 - 51.1 %) 5.3 L Monocytes % (1.7 - 9.3 %) 3.0 Eosinophils % (0 - 5 %) 0 Basophils % (0.0 - 2.0 %) 0.1 Absolute Granulocytes (1.4 - 6.5 /CUMM) 7.7 H Absolute Lymphocytes (1.2 - 3.4 /CUMM) 0.4 L Absolute Monocytes (0.10 - 0.60 /CUMM) 0.2 Absolute Eosinophils (0.0 - 0.7 /CUMM) 0 Absolute Basophils (0.0 - 0.2 /CUMM) 0 Platelet Estimate (ADEQUATE) DECREASED Ovalocytes 1+ PUBS MCHC (33.0 - 37.0 G/DL) 33.9 12/16 Blood Gas pH (7.35 - 7.45 PH) 7.51 H pCO2 (35 - 45 TORR) 25 L pO2 (80 - 100 TORR) 75 L HCO3 (21 - 28 MEQ/L) 20 L ABG O2 Sat (Measured) (>96.0 %) 95.0 L Carboxyhemoglobin (1.5 - 5.0 %) 0.3 L O2 Concentration % 70% Respiration Rate (BPM) 28 O2 Delivery Method BIPAP Vent Mode ST Expiratory Pressure (CM H2O P) 6 Inspiratory Pressure (CM H2O P) 16 Chemistry Troponin I (<0.11 ng/ml) 12.20 *H Coagulation PT (9.4 - 12.5 SEC) 14.9 H INR (0.90 - 1.17) 1.42 H APTT (25 - 37 SEC) 57 H Miscellaneous Phlebotomy Draw Site LEFT RADIAL 12/16 12/16 12/16 1836 1520 1245 Chemistry Troponin I (<0.11 ng/ml) 9.39 *H Coagulation APTT (25 - 37 SEC) 96 H Hematology CBC w Diff NO MAN DIFF REQ WBC (4.8 - 10.8 /CUMM) 10.6 RBC (4.70 - 6.10 /CUMM) 4.42 L Hgb (14.0 - 18.0 G/DL) 13.5 L Hct (42 - 52 %) 40.0 L MCV (80.0 - 94.0 FL) 90.5 MCH (27.0 - 31.0 PG) 30.6 RDW (11.5 - 14.5 %) 14.0 Plt Count (130 - 400 /CUMM) 145 MPV (7.4 - 10.4 FL) 10.1 Gran % (42.2 - 75.2 %) 94.7 H Lymphocytes % (20.5 - 51.1 %) 2.5 L Monocytes % (1.7 - 9.3 %) 2.7 Eosinophils % (0 - 5 %) 0 Basophils % (0.0 - 2.0 %) 0.1 Absolute Granulocytes (1.4 - 6.5 /CUMM) 10.0 H Absolute Lymphocytes (1.2 - 3.4 /CUMM) 0.3 L Absolute Monocytes (0.10 - 0.60 /CUMM) 0.3 Absolute Eosinophils (0.0 - 0.7 /CUMM) 0 Absolute Basophils (0.0 - 0.2 /CUMM) 0 PUBS MCHC (33.0 - 37.0 G/DL) 33.8 Last 24 Hours of Evens Results: Blood cultures 2 December 15 positive for Staph aureus sensitivities pending Rapid flu swab December 15 negative Urine culture December 16 negative Urine strep pneumo antigen and Legionella antigen December 16 negative Diagnostic Data Recent Imaging Findings: Chest x-ray December 17 increasing consolidation in the left midlung with blunting of the left costophrenic angle; right lung clear Echocardiogram December 16 reveals an ejection fraction of 45%, with mild to moderate mitral regurgitation, focal thickening of the aortic valve cusps with mild aortic regurgitation, a trace to small pericardial effusion, with no report of vegetations Assessment/Plan Assessment/Plan Impression: This is a 76-year-old man with a history of coronary artery disease, diabetes, bladder cancer and peripheral vascular disease, status post a balloon angioplasty of the left lower extremity at the [facility] one day prior to admission, admitted on December 15 with the acute onset of chills and weakness, found to be febrile with a leukocytosis, with an elevated troponin, and with blood cultures to be pulmonary, with increasing respiratory distress and increasing left lung consolidation, suggestive of pneumonia. The left costophrenic angle is blunted, suggesting an effusion, and, if his fevers persist, an empyema will need to be ruled out. Given the timing of his recent surgery an infection related to this procedure must also be considered, though the right femoral area appears clean and, apparently, no foreign material or stents were placed. Endocarditis must also be considered given his recurrent fevers. His course has also been complicated by an PA, and he is being followed by Cardiology. Suggestion: 1. Obtain records from his recent procedure at the [facility] 2. Repeat blood cultures [address] of the chest if fevers persist 4. Will need to consider GEORGI 5. Discontinue Ceftriaxone and Azithromycin 6. Continue Vancomycin pending final blood cultures Consult Acknowledgment - Thank you for your consult request.
--- NOTE | 2016-12-17 12:06 | RADIOLOGY REPORT ---
EXAMINATION: XR PORTABLE CHEST CLINICAL INFORMATION: Status post endotracheal tube placement. COMPARISON: Earlier the same day, 12/17/2016 8:58 AM. TECHNIQUE: Portable semisupine view of the chest was obtained labeled 11:30 AM. A large portion of the right thorax is not included. FINDINGS: There is a new endotracheal tube which appears in satisfactory position approximately 6 cm proximal to the kim. A new enteric tube is also identified with its proximal sidehole and tip below the left hemidiaphragm. The tip is not included on the current exam. There is a relatively stable appearing consolidative opacity likely in the left lower lobe. A trace left-sided pleural effusion is also suspected. Small focus of discoid atelectasis is probable at the right lung base. Post sternotomy changes are again noted. IMPRESSION: Endotracheal and enteric tubes appear in satisfactory position although the tip of the nasogastric tube is not included..
[2016-12-17 16:00] VITALS: BP 100/70
--- NOTE | 2016-12-17 18:38 | Event Note ---
Event Note Event Note: Patient's troponins from 3:30 PM came back at 23.50, elevated from 11.90 six hours prior. EKG was without any acute changes. Dr. Jimenez was made aware and suggested continuing with the current management.
--- NOTE | 2016-12-17 19:48 | NUR ---
PT AGAIN BECAME DISTRESSED WITH LABORED RAPID BREATHING, TACHYCARDIA, EXTREME ANXIETY AND VERBALIZING A FEELING OF IMPENDING . HE BECAME COLD AND DIAPHORETIC. HE DENIED ANY CHEST PAIN, NO NAUSEA. RT AT BEDSIDE, ICU RESIDENT AT BEDSIDE, DR. MARTINES NOTIFIED AND PT WAS INTUBATED BY ANESTHESIA AT 1115 AM. FAMILY NOTIFIED. DESPITE THE PT BEING SEDATED WITH PROPOFOL AT 40MCGPER KG, HE REMAINED WITH TACHYPNEA. IV ATIVAN WAS ADDED AT 6MG PER HOUR WITH A GOAL OF SEDATION RESPIRATORY RATE NOT OVERRIDING THE VENT. BY 1800 PT SEDATED, SAS 2, MONITOR NSR, RR 19-20 AND O2 WAS TURNED FROM 100% TO 85%. THE PT REMINS ON PEEP OF 8. HIS FAMILY HAS VISITED AND UPDATES HAVE BEEN GIVEN.
--- NOTE | 2016-12-17 20:30 | NUR ---
AXILLARY TEMP 95.4, PT COLD AND CLAMMY. MD GUILLORY MADE AWARE, PLACE ADDITIONAL BLANKETS ON PT AND RECHECK TEMP LATER PER MD GUILLORY. 2130=RECTAL TEMP 98.8
[2016-12-17 22:00] LABS: PTT 83 SEC (25-37)
--- NOTE | 2016-12-17 22:15 | NUR ---
1999=B/P 80/40 MANUAL. PROPOFOL DECREASED TO 35MCG. ATIVAN DECREASED TO 5MG/HR, SAS 1. 2014=89/52 PROPOFOL DECREASED 30MCG 2029=82/45 PROPOFOL DECREASED 25MCG, MD GUILLORY AWARE 2037=83/52 500ML NS BOLUS 2144= 79/49 PROPOFOL OFF, 500ML NS BOLUS PER MD GUILLORY. 2199= 82/51, PER MD GUILLORY START LEVOPHED PERIPHERALLY, HOUSESTAFF TO OBTAIN CENTRAL LINE. LEVOPHED STARTED 5MCG/MIN. #22 LF +BLD RETURN. 2220=MD SERO AT BEDSIDE ATTEMPTING CENTRAL LINE PLACEMENT. IV HEPARIN ON HOLD AT THIS TIME PER MD MARIEE. 0010= UNSUCCESSFUL ATTEMPTS AT CENTRAL LINE. ELOY HAILE PAGED AND PLACED CENTRAL LINE TO LEFT GROIN, OK TO USE PER ELOY HAILE. HEPARIN GTT TO BE RESTARTED AT 0100 PER ELOY HAILE.
[2016-12-18] VITALS: BP 110/62
--- NOTE | 2016-12-18 00:15 | Procedure ---
See Addendum Minor Surgical Procedure Note Date of Procedure: 12/18/16 Procedure Note: Procedure: Ultrasound-guided central access Indication: Hypotension requiring pressure support After consent was obtained from the family the patient was prepped and draped in sterile manner. Under ultrasound guidance a right femoral triple-lumen catheter was placed. All lines were aspirated and flushed. The line was sutured in placed and a sterile dressing was applied. The procedure was tolerated well.
--- NOTE | 2016-12-18 01:39 | RADIOLOGY REPORT ---
EXAMINATION: XR PORTABLE CHEST CLINICAL INFORMATION: Endotracheal tube placement. COMPARISON: Chest x-ray 12/17/2016 TECHNIQUE: Portable AP portable view of the chest was obtained. 1:18 AM FINDINGS: Endotracheal tube is in place. Catheter tip in good position approximate 4.5 cm above the kim. Nasogastric tube extending into the stomach. Status post median sternotomy. The airspace disease in the left midlung is persistent. The mild central pulmonary vascular prominence noted on prior exam has improved. No pleural effusion. IMPRESSION: 1. Endotracheal tube catheter 4.5 cm above the kim. 2. Persistent left-sided airspace disease. 4. Decreasing central pulmonary vascular congestion.
[2016-12-18 05:24] LABS: ABSOLUTE BASOPHIL COUNT 0 /CUMM (0.0-0.2); ABSOLUTE EOSINOPHIL COUNT 0 /CUMM (0.0-0.7); ABSOLUTE GRANULOCYTE CT 7.2 /CUMM (1.4-6.5); ABSOLUTE LYMPH COUNT 0.8 /CUMM (1.2-3.4); ABSOLUTE MONOCYTE COUNT 0.7 /CUMM (0.10-0.60); BASOPHIL % 0 % (0.0-2.0); EOSINOPHIL % 0 % (0-5); GRANULOCYTE % 83.2 % (42.2-75.2); HEMATOCRIT 37.4 % (42-52); MEAN CORPUSCULAR HGB 30.6 PG (27.0-31.0); MEAN CORPUSCULAR HGB CONC 33.7 G/DL (33.0-37.0); MEAN CORPUSCULAR VOLUME 90.7 FL (80.0-94.0); MEAN PLATELET VOLUME 10.9 FL (7.4-10.4); PLATELET COUNT 126 /CUMM (130-400); RBC DISTRIBUTION WIDTH 14.1 % (11.5-14.5); RED BLOOD CELL CT 4.13 /CUMM (4.70-6.10); WHITE BLOOD CELL COUNT 8.7 /CUMM (4.8-10.8)
--- NOTE | 2016-12-18 06:32 | Event Note ---
Event Note Event Note: A right IJ central line was attempted w.o success, the guidewire kept kinking, it was then decided to try the right femoral vein. The central line was placed in the right femoral vein and upon pulling back the guidewire, it was noted the guidewire started to unwind/ unkink. At this point, the central line with the guidewire within it was removed in order to prevent the guidewire from breaking off. Surgery was consulted who successfully placed a left femoral line. CXR was negative for pneumothorax and ET tube placement was also confirmed.
--- NOTE | 2016-12-18 07:07 | PN- Resident CRCU ---
Subjective HPI/CRCU Issues: Patient is in ICU for ventilatory support after intubation, severe sepsis, multiorgan failure. I followed up and examined the patient today. He is intubated, breathing according to ventilator settings, and SpO2 92%. He hasn't spiked any fever. 24 Hour Events: Overnight, his blood pressure had dropped significantly, requiring central line placement which was difficult and finally surgical PA was able to place ultrasound-guided femoral line on left side. He was started on Levophed yesterday right after that. His blood pressure has been improving this morning in Levophed was held since 3:30 AM today. Objective Vital Signs & I&O Last 8 Hrs of Vitals and I&O: Vital Signs Date Time Temp Pulse Resp B/P Pulse O2 O2 Flow FiO2 Ox Delivery Rate 12/18 1600 94 Ventilator 65% 12/18 1600 99.2 102 27 118/68 94 Ventilator 65% 12/18 1425 75 12/18 1200 92 Ventilator 75% 12/18 1159 75 12/18 1032 99.6 108 25 134/66 Intake & Output 12/18 1600 Intake Total 543 Output Total 350 Balance 193 Intake, IV 498 Intake, Other 45 Output, 50 Gastric Drainage Output, Urine 300 Patient 69.116 kg Weight Exam General Appearance: well developed/nourished, comfortable, intubated Other Physical Findings: Head: Normocephalic, atraumatic Eyes: Pupils normal in size, regular, reacting to light and accommodation, EOM normal Nose: Normal on inspection Neck: Supple, full range of motion, no thyromegaly Heart: tachycardic, regular rhythm Lung: Intubated, crackles heard bilaterally, no wheeze Abd: Soft, non-tender, no distention appreciated Extremities: Normal knee exam bilaterally, no pedal edema Neuro: Normal reflex b/l Skin: Warm and dry Central Line Site: Left femoral vein Date In: 12/17/16 Need for Catheter: pressors Cates Site: urethral Date In: 12/17/16 Still Needed? Yes NG Tube Site: orogastric tube Date In: 12/17/16 Still Needed? Yes IV Drips IV Drips: Ativan drip Heparin drip Nutrition Nutrition: NPO Current Medications: Current Medications Sig/Damon Start time Last Medication Dose Route Stop Time Status Admin Acetaminophen 650 MG Q6P PRN 12/16 0015 AC 12/16 PO 2040 Acetaminophen/ 1 TAB Q6P PRN 12/16 0015 AC Hydrocodone Bitart PO Aspirin 81 MG DAILY 12/16 1000 AC 12/18 PO 1031 Atorvastatin Calcium 40 MG 1700 12/16 1700 AC 12/18 PO 1701 Carvedilol 6.25 MG BID 12/16 1000 AC 12/18 PO 1032 Cefazolin Sodium 1,000 MG IQ8 12/18 1600 AC 12/18 IV 1537 Clopidogrel Bisulfate 75 MG DAILY 12/16 1000 AC 12/18 PO 1032 Finasteride 5 MG DAILY 12/16 1000 AC 12/16 PO 0914 Heparin Sodium 25,000 UNIT Q24H 12/16 0530 AC 12/18 (Porcine) IV 0623 Sodium Chloride 500 ML Insulin Aspart 0 TIDAC 12/16 0800 DC 12/17 SC 1814 Insulin Human Regular 0 Q6 12/18 0626 12/18 SC 1214 Lorazepam 50 MG Q12H 12/18 1400 AC 12/18 Dextrose/Water 500 ML IV 1537 Lorazepam 50 MG Q24H 12/17 2000 DC 12/18 Dextrose/Water 500 ML IV 0213 Lorazepam 50 MG ONCE ONE 12/17 1400 DC 12/17 Sodium Chloride 500 ML IV 12/17 2359 1400 Norepinephrine 4 MG Q24H 12/17 2200 AC 12/17 Sodium Chloride 250 ML IV 2201 Norepinephrine 4 MG .STK-MED ONE 12/17 2150 DC IV 12/17 2151 Omeprazole 20 MG DAILY AC 12/16 0700 DC 12/17 PO 0504 Oxycodone HCl 10 MG Q6P PRN 12/16 0015 AC PO Pantoprazole Sodium 40 MG DAILY 12/18 1000 AC 12/18 IV 1031 Polyethylene Glycol 17 GM DAILY PRN 12/16 1015 AC PO Propofol 1,000 MG Q24H 12/17 1130 DC 12/17 N/A 100 ML IV 1130 Ranolazine 500 MG BID 12/16 0010 AC 12/16 PO 2041 Sodium Chloride 500 ML BOLUS ONE 12/17 2145 DC 12/17 IV 12/17 2244 2138 Sodium Chloride 1,000 ML Q10H 12/17 2145 DC IV Sodium Chloride 500 ML BOLUS ONE 12/17 2045 DC 12/17 IV 12/17 2144 2043 Tamsulosin HCl 0.4 MG DAILY 12/16 1000 AC PO Vancomycin HCl 1,000 MG DAILY 12/19 1000 CAN Dextrose/Water 250 ML IV Vancomycin HCl 1,000 MG DAILY 12/18 1000 DC Dextrose/Water 250 ML IV Vancomycin HCl 1,000 MG Q12H 12/17 0300 DC 12/18 Dextrose/Water 250 ML IV 0213 CXR Findings: IMPRESSION: 1. Endotracheal tube catheter 4.5 cm above the kim. 2. Persistent left-sided airspace disease. 4. Decreasing central pulmonary vascular congestion. DICTATED BY: CLAIR CORNEJO MD DATE/TIME DICTATED:12/18/16130 CORE JAVA ENGINEER:VANESSA DATE/TIME TRANSCRIBED:12/18/16130 Impression/Plan Impression/Problem List Impression: 68-year-old male with past medical history significant for hypertension, hyperlipidemia, peripheral vascular disease, bladder cancer diagnosed over one year ago, oral HSV, CAD with a triple bypass in 1993, who has all his routine medical care at the [facility], who presents with chief complaint of lower extremity weakness, fever, chills for 20 after having a vascular procedure at the [facility] a day prior to that. 68-year-old male with past medical history significant for hypertension, hyperlipidemia, peripheral vascular disease, bladder cancer diagnosed over one year ago, oral HSV, CAD with a triple bypass in 1993, who has all his routine medical care at the [facility], who presents with chief complaint of lower extremity weakness, fever, chills. He is being managed in the ICU for the following issues: Respiratory Acute respiratory distress syndrome * Respiratory status of the patient was waxing and waning and was intubated yesterday. He remains intubated. * Patient is being treated for acute respiratory distress syndrome, can be characterized as having moderate ARDS * Normal saturation is 80-92% and peak has been slightly increased today * Adequate sedation with Ativan drip * Antibiotics were changed to cefazolin from vancomycin according to infectious disease service suggestion, as the culture was growing Staphylococcus aureus, awaiting sensitivity reports Infectious disease Sepsis, possibly secondary to pneumonia Results of his blood culture shows gram-positive cocci in clusters possibly Staph, and the patient is already on vancomycin. Azithromycin and ceftriaxone was discontinued yesterday and cefazolin was started to day per ID service suggestion, from vancomycin as the culture was growing Staphylococcus aureus. * Awaiting sensitivity reports * Repeat blood culture has been sent today according to infectious disease service suggestion * Consider CT of the chest if fevers persist * Consider GEORGI if patient continues to deteriorate without possible explanation Cardiovascular system Patient's previous echo shows ejection fraction of 45% with some wall motion abnormalities that appears to be chronic. Cardiology service has been consulted , which [facility]. Patient continues to have increasing troponins, latest is 40 this morning. Given his situation, it is likely that his troponin is on the rise because of increased stress due to respiratory distress and sepsis. In this scenario, patient most likely benefits more from intubation rather than BiPAP and has been kept as such. * Cardiology consult appreciated * We'll continue to check EKG and trend troponins until it trends down Hematology Patient is being adequately correlated with heparin drip. * Continue IV heparin drip Metabolic Continue to follow chemistries and repeat electrolytes accordingly. IV fluids running. Alimentary * Since he is intubated, he is kept nothing by mouth for now. IV fluids running. Neurology Patient had grossly normal neurological examination yesterday except for anxiety due to his respiratory distress. Since he is on sedation for intubation, will continue to monitor him for adequate sedation. DVT prophylaxis with heparin drip CODE STATUS: Full code Problem List: 1. ARDS (adult respiratory distress syndrome) 2. Sepsis 3. Pneumonia 4. CAD (coronary artery disease) 5. PVD (peripheral vascular disease) with claudication 6. NSTEMI (non-ST elevated myocardial infarction) 7. MODS (multiple organ dysfunction syndrome) Pain Ratin Pain Location: cannot assess due to his intubated state Pain Goal: Remain pain free Pain Plan: prn, anaesthesia if necessary Tomorrow's Labs & Rationales: ICU lab bundle, CBC, CXR to check lytes, sepsis, platelets, and position of ET- Tube Plan DVT/Prophylaxis: pharmacological
[2016-12-18 08:00] VITALS: BP 120/60
--- NOTE | 2016-12-18 09:10 | NUR ---
AT 0800 REC'D THE PT ORALLY INTUBATED AND MECHANICALLY VENTILATED PER MD ORDER. TL BS ARE CLEAR WITH AN 02 SAT OF 92% ON AN FIO2 OF 75%. PT REMAINS ON AN ATIVAN GTT OF 50MG/500ML OF NS AT 4MG/HR OR 40ML/HR. SAS IS A 1-2. ATTEMPTS TO OPEN EYES BUT IS UNABLE. NO SPONTANEOUS MOVEMENT OF EXTREMITIES NOTED. PT IS IN A ST WITH FREQ PVC'S PER THE ELECTRIC POWER LINE EXAMINER. HR IS IN THE LOW 100'S. NO EDEMA NOTED. PT REMAINS ON A HEPARIN GTT OF 65604H IN 500ML OF 1/2 NS INFUSING AT 9.9U/KG/HR OR 14.4ML/HR VIA THE WHITE PORT OF THE L FEM TLC ALONG WITH THE ATIVAN GTT. THE BLUE AND THE BROWN PORTS WERE BOTH FLUSHED AND HAVE BLOOD RETURN. PT IS DUE FOR A REPEAT PTT AT 0930 AND AN 1CU BUNDLE/TROPONIN/CBC AT 1100. ABD IS SOFT WITH NORMOACTIVE BOWEL SOUNDS. OPGT TO LWS DRAINING SMALL AMOUNTS OF BROWN LIQUID. FOLEWY IN PLACE DRAINING YELLOW URINE.
--- NOTE | 2016-12-18 09:18 | PN- Cardiology ---
Subjective Subjective: The patient was intubated yesterday for increasing respiratory distress. He is now sedated on the respirator. His blood pressure transiently dropped requiring Levophed but this is now off. He remains on IV heparin and his troponins, which had initially decreased, are now increasing and the latest value is 40. Transaminases are increasing also probably due to shock liver and BUN/creatinine are deteriorating. His EKG has not shown any significant change from baseline. Objective Vital Signs and I&Os Vital Signs Date Time Temp Pulse Resp B/P Pulse O2 O2 Flow FiO2 Ox Delivery Rate 12/18 0545 75 12/18 0400 93 Ventilator 75% 12/18 0338 75 12/18 0109 75 12/18 0000 97.1 74 23 110/62 92 Ventilator 75% 12/18 0000 92 Ventilator 75% 12/17 2208 75 12/17 2202 72 82/51 12/17 2202 71 82/51 12/17 2201 72 82/51 12/17 2000 94 Ventilator 75% 12/17 1900 85 12/17 1625 100 12/17 1600 89 Ventilator 100% 12/17 1600 98.0 100 20 100/70 94 Ventilator 100% 12/17 1429 100 12/17 1315 100 12/17 1300 134 104/60 12/17 1200 89 Ventilator 100% 12/17 1133 100 12/17 1022 92 Intake & Output 12/18 1600 12/18 0800 12/18 0000 12/17 1600 12/17 0800 12/17 0000 Intake Total 893 1744 170 896 971 Output Total 260 160 230 210 650 Balance 633 1584 -60 686 321 Intake, IV 893 1744 170 876 691 Intake, Oral 0 0 20 280 Number 0 0 1 1 0 Bowel Movements Output, 100 50 Gastric Drainage Output, Urine 160 110 230 210 650 Patient 152 lb Weight Physical Exam: He is sedated and unresponsive HEENT exam is grossly normal Chest reveals good aeration of both lungs Heart reveals regular rhythm and no murmurs, gallops or rubs Extremities good pulses no edema Current Medications: Current Medications Sig/Damon Start time Last Medication Dose Route Stop Time Status Admin Acetaminophen 650 MG Q6P PRN 12/165 AC 12/16 PO 2040 Acetaminophen/ 1 TAB Q6P PRN 12/165 AC Hydrocodone Bitart PO Aspirin 81 MG DAILY 12/16 1000 AC 12/17 PO 1300 Atorvastatin Calcium 40 MG 1700 12/16 1700 AC 12/17 PO 1715 Azithromycin 500 MG DAILY@12/16 2200 DC 12/16 Dextrose/Water 250 ML IV 2119 Carvedilol 6.25 MG BID 12/16 1000 AC 12/17 PO 1300 Ceftriaxone Sodium 1,000 MG DAILY@0 12/16 2200 DC 12/16 IV 2119 Clopidogrel Bisulfate 75 MG DAILY 12/16 1000 AC 12/17 PO 1300 Finasteride 5 MG DAILY 12/16 1000 AC 12/16 PO 0914 Heparin Sodium 25,000 UNIT Q24H 12/16 0530 AC 12/18 (Porcine) IV 0623 Sodium Chloride 500 ML Insulin Aspart 0 TIDAC 12/16 0800 DC 12/17 SC 1814 Insulin Human Regular 0 Q6 12/18 0626 AC 12/18 SC 0628 Lorazepam 50 MG Q24H 12/17 2000 AC 12/18 Dextrose/Water 500 ML IV 0213 Lorazepam 50 MG ONCE ONE 12/17 1400 DC 12/17 Sodium Chloride 500 ML IV 12/17 2359 1400 Lorazepam 2 MG ONE ONE 12/17 1315 DC 12/17 IV 12/17 1316 1400 Non-Formulary 0 SEE ADMIN CRITERIA 12/17 1130 CAN Medication ANY Norepinephrine 4 MG Q24H 12/17 2200 AC 12/17 Sodium Chloride 250 ML IV 220 Norepinephrine 4 MG .STK-MED ONE 12/17 2150 DC IV 12/17 2151 Omeprazole 20 MG DAILY AC 12/16 0700 DC 12/17 PO 0504 Oxycodone HCl 10 MG Q6P PRN 12/16 0015 AC PO Pantoprazole Sodium 40 MG DAILY 12/18 1000 AC IV Polyethylene Glycol 17 GM DAILY PRN 12/16 1015 AC PO Propofol 1,000 MG Q24H 12/17 1130 DC N/A 100 ML IV Propofol 1,000 MG Q24H 12/17 1130 DC 12/17 N/A 100 ML IV 1130 Propofol 1,000 MG .STK-MED ONE 12/17 1116 DC IV 12/17 1117 Propofol 1,000 MG .STK-MED ONE 12/17 1103 DC IV 12/17 1104 Ranolazine 500 MG BID 12/16 0010 AC 12/16 PO 2041 Sodium Chloride 500 ML BOLUS ONE 12/17 2145 DC 12/17 IV 12/17 Sodium Chloride 1,000 ML Q10H 12/17 2144 DC IV Sodium Chloride 500 ML BOLUS ONE 12/17 2044 DC 12/17 IV 12/17 Tamsulosin HCl 0.4 MG DAILY 12/16 1000 AC PO Vancomycin HCl 1,000 MG DAILY 12/18 1000 UNVr Dextrose/Water 250 ML IV Vancomycin HCl 1,000 MG Q12H 12/17 0300 DC 12/18 Dextrose/Water 250 ML IV 0213 Results Last 48 Hrs of Labs/Mics: Laboratory Tests 12/18/16 0435: Anion Gap 11, Estimated GFR 29 L, Glucose 248 H, Calcium 7.4 L, Phosphorus 5.0 H, Magnesium 2.0, Total Bilirubin 0.5, AST 1272 H, ALT 1078 H, Troponin I 40.50 *H, Albumin 2.4 L, CBC w Diff MAN DIFF ORDERED, RBC 4.13 L, MCV 90.7, MCH 30.6, RDW 14.1, MPV 10.9 H, Gran % 83.2 H, Lymphocytes % 9.0 L, Monocytes % 7.8, Eosinophils % 0, Basophils % 0 L, Absolute Granulocytes 7.2 H, Segmented Neutrophils 81 H, Band Neutrophils 10 H, Absolute Lymphocytes 0.8 L , Lymphocytes 5 L, Monocytes 4, Absolute Monocytes 0.7 H, Absolute Eosinophils 0, Absolute Basophils 0, Platelet Estimate DECREASED, Polychromasia 1+, Poikilocytosis 1+, Ovalocytes 1+, PUBS MCHC 33.7 12/17/162119: Troponin I 35.10 *H 12/17/162119: Anion Gap 12, Estimated GFR 28 L, Glucose 265 H, Calcium 7.3 L, Phosphorus 5.2 H, Magnesium 2.0, Total Bilirubin 0.5, AST 1308 H, ALT 1035 H, Albumin 2.4 L, APTT 83 H 12/17/16 1530: Troponin I 23.50 *H 12/17/16 1215: pH 7.37, pCO2 31 L, pO2 65 L, HCO3 17 L, ABG O2 Sat (Measured) 90.0 L, P-50 (Temp Corrected) YES, Carboxyhemoglobin 0.6 L, O2 Concentration % 100%, Temperature 99.3, Respiration Rate 20, O2 Delivery Method VENT, Vent Mode AC, Expiratory Pressure 5, Tidal Volume 500, Phlebotomy Draw Site RIGHT RADIAL 12/17/16 0949: Troponin I 11.90 *H, APTT 53 H 12/17/16 0335: Phosphorus 3.0, Troponin I 16.00 *H 12/17/16 0335: Anion Gap 12, Estimated GFR > 60, BUN/Creatinine Ratio 45.0 H, Magnesium 2.2, APTT 117 *H, CBC w Diff MAN DIFF ORDERED, RBC 4.02 L, MCV 90.2, MCH 30.5, RDW 14.1, MPV 9.4, Gran % 91.6 H, Lymphocytes % 5.3 L, Monocytes % 3.0, Eosinophils % 0, Basophils % 0.1, Absolute Granulocytes 7.7 H, Absolute Lymphocytes 0.4 L, Absolute Monocytes 0.2, Absolute Eosinophils 0, Absolute Basophils 0, Platelet Estimate DECREASED, Ovalocytes 1+, PUBS MCHC 33.9 12/16/16 2105: Troponin I 12.20 *H, PT 14.9 H, INR 1.42 H, APTT 57 H 12/16/16 1945: pH 7.51 H, pCO2 25 L, pO2 75 L, HCO3 20 L, ABG O2 Sat (Measured) 95.0 L, Carboxyhemoglobin 0.3 L, O2 Concentration % 70%, Respiration Rate 28, O2 Delivery Method BIPAP, Vent Mode ST, Expiratory Pressure 6, Inspiratory Pressure 16, Phlebotomy Draw Site LEFT RADIAL 12/16/16 1836: CBC w Diff NO MAN DIFF REQ, RBC 4.42 L, MCV 90.5, MCH 30.6, RDW 14.0, MPV 10.1, Gran % 94.7 H, Lymphocytes % 2.5 L, Monocytes % 2.7, Eosinophils % 0, Basophils % 0.1, Absolute Granulocytes 10.0 H, Absolute Lymphocytes 0.3 L, Absolute Monocytes 0.3, Absolute Eosinophils 0, Absolute Basophils 0, PUBS MCHC 33.8 12/16/16 1520: Troponin I 9.39 *H 12/16/16 1245: APTT 96 H 12/16/16 0945: Anion Gap 13, Estimated GFR > 60, BUN/Creatinine Ratio 32.2 H, Troponin I 6.09 *H, CBC w Diff MAN DIFF ORDERED, RBC 4.05 L, MCV 90.7, MCH 30.6, RDW 13.9, MPV 9.6, Gran % 95.9 H, Lymphocytes % 1.8 L, Monocytes % 2.2, Eosinophils % 0, Basophils % 0.1, Absolute Granulocytes 11.3 H, Segmented Neutrophils 92 H, Band Neutrophils 5, Absolute Lymphocytes 0.2 L, Lymphocytes 1 L, Monocytes 2, Absolute Monocytes 0.3, Absolute Eosinophils 0, Absolute Basophils 0, Platelet Estimate DECREASED, Normocytic RBCs VERIFIED, Normochromic RBCs VERIFIED, PUBS MCHC 33.8 Microbiology 12/16 1300 UPPER RESP: Surveillance Culture - COMP 12/16 1300 GI: Surveillance Culture - COMP 12/16 1255 URINE ROUT: Legionella Antigen - COMP 12/16 1255 URINE ROUT: Streptococcus pneumoniae Antigen (M - COMP 12/16 1255 URINE ROUT: Urine Culture - COMP Recent Imaging Studies: PATIENT: CAITY BELL PRESENT AGE: 76 PATIENT ACCOUNT NO: [id number] : 38 LOCATION: [facility] ORDERING PHYSICIAN: BALJINDER FLORES MD SERVICE DATE: 12/18/16 EXAM TYPE: RAD - XRY-PORTABLE CHEST XRAY EXAMINATION: XR PORTABLE CHEST CLINICAL INFORMATION: Endotracheal tube placement. COMPARISON: Chest x-ray 12/17/2016 TECHNIQUE: Portable AP portable view of the chest was obtained. 1:18 AM FINDINGS: Endotracheal tube is in place. Catheter tip in good position approximate 4.5 cm above the kim. Nasogastric tube extending into the stomach. Status post median sternotomy. The airspace disease in the left midlung is persistent. The mild central pulmonary vascular prominence noted on prior exam has improved. No pleural effusion. IMPRESSION: 1. Endotracheal tube catheter 4.5 cm above the kim. 2. Persistent left-sided airspace disease. 4. Decreasing central pulmonary vascular congestion. DICTATED BY: CLAIR CORNEJO MD DATE/TIME DICTATED:12/18/16130 ANATOMY TEACHER:VANESSA DATE/TIME TRANSCRIBED:12/18/16130 CONFIDENTIAL, DO NOT COPY WITHOUT APPROPRIATE AUTHORIZATION. <Electronically signed in Other Vendor System> SIGNED BY: CLAIR CORNJEO MD 12/18/16138 Assessment/Plan Assessment/Plan The patient is acutely ill. He is growing staph aureus in the blood. His troponins are continuing to rise. Chest x-ray is unchanged today and still shows extensive left-sided infiltrate. There is no evidence of heart failure. The patient is having multisystem organ failure at this time. We are awaiting records from the [facility] to determine his underlying cardiac and coronary artery status. We will obtain a limited echo for follow-up considering his rising troponins. Pending this we will continue full support but the negative trends of all organ systems is concerning. Continue telemetry? Not applicable
[2016-12-18 10:03] LABS: PTT 65 SEC (25-37)
--- NOTE | 2016-12-18 10:19 | PN- Infect Dx ---
Subjective Subjective: Afebrile. He was intubated yesterday because of increased respiratory distress. He did require pressors transiently but his blood pressure is currently stable off of them. A left femoral line was inserted yesterday. Objective Last 24 Hrs of Vital Signs/I&O Vital Signs Date Time Temp Pulse Resp B/P Pulse O2 O2 Flow FiO2 Ox Delivery Rate 12/18 0815 75 12/18 0800 92 Ventilator 75% 12/18 0800 99.6 100 25 120/60 92 Ventilator 75% 12/18 0545 75 12/18 0400 93 Ventilator 75% 12/18 0338 75 12/18 0109 75 12/18 0000 97.1 74 23 110/62 92 Ventilator 75% 12/18 0000 92 Ventilator 75% 12/17 2208 75 12/17 2202 72 82/51 12/17 2202 71 82/51 12/17 2201 72 82/51 12/17 1999 94 Ventilator 75% 12/17 1900 85 12/17 1625 100 12/17 1600 89 Ventilator 100% 12/17 1600 98.0 100 20 100/70 94 Ventilator 100% 12/17 1429 100 12/17 1315 100 12/17 1300 134 104/60 12/17 1200 89 Ventilator 100% 12/17 1133 100 12/17 1022 92 Intake & Output 12/18 1600 12/18 0800 12/18 0000 Intake Total 893 1744 Output Total 260 160 Balance 633 1584 Intake, IV 893 1744 Intake, Oral 0 Number 0 0 Bowel Movements Output, 100 50 Gastric Drainage Output, Urine 160 110 Patient 152 lb Weight Physical Exam Other Physical Findings: He is sedated on the ventilator Lungs are clear Heart regular rhythm with no murmur Extremities no cyanosis, clubbing or edema; left femoral triple lumen catheter in place Cates catheter remains in place Results Last 24 Hours of Lab Results: Laboratory Tests 12/18 12/18 12/17 0945 6885 2120 Chemistry Sodium (137 - 145 mmol/L) 137 Potassium (3.5 - 5.1 mmol/L) 4.2 Chloride (98 - 107 mmol/L) 108 H Carbon Dioxide (22 - 30 mmol/L) 19 L Anion Gap (5 - 16) 11 BUN (9 - 20 mg/dL) 61 H Creatinine (0.7 - 1.2 mg/dL) 2.2 H Estimated GFR (>60 ml/min) 29 L Glucose (65 - 99 mg/dL) 248 H Calcium (8.4 - 10.2 mg/dL) 7.4 L Phosphorus (2.5 - 4.5 mg/dL) 5.0 H Magnesium (1.6 - 2.3 mg/dL) 2.0 Total Bilirubin (0.2 - 1.3 mg/dL) 0.5 AST (17 - 59 U/L) 1272 H ALT (21 - 72 U/L) 1078 H Troponin I (<0.11 ng/ml) 40.50 *H 35.10 *H Albumin (3.5 - 5.0 g/dL) 2.4 L Coagulation APTT Pending Hematology CBC w Diff MAN DIFF ORDERED WBC (4.8 - 10.8 /CUMM) 8.7 RBC (4.70 - 6.10 /CUMM) 4.13 L Hgb (14.0 - 18.0 G/DL) 12.6 L Hct (42 - 52 %) 37.4 L MCV (80.0 - 94.0 FL) 90.7 MCH (27.0 - 31.0 PG) 30.6 RDW (11.5 - 14.5 %) 14.1 Plt Count (130 - 400 /CUMM) 126 L MPV (7.4 - 10.4 FL) 10.9 H Gran % (42.2 - 75.2 %) 83.2 H Lymphocytes % (20.5 - 51.1 %) 9.0 L Monocytes % (1.7 - 9.3 %) 7.8 Eosinophils % (0 - 5 %) 0 Basophils % (0.0 - 2.0 %) 0 L Absolute Granulocytes (1.4 - 6.5 /CUMM) 7.2 H Segmented Neutrophils (42.2 - 75.2 %) 81 H Band Neutrophils (0.0 - 5.0 %) 10 H Absolute Lymphocytes (1.2 - 3.4 /CUMM) 0.8 L Lymphocytes (20.5 - 51.1 %) 5 L Monocytes (1.7 - 9.3 %) 4 Absolute Monocytes (0.10 - 0.60 /CUMM) 0.7 H Absolute Eosinophils (0.0 - 0.7 /CUMM) 0 Absolute Basophils (0.0 - 0.2 /CUMM) 0 Platelet Estimate (ADEQUATE) DECREASED Polychromasia 1+ Poikilocytosis 1+ Ovalocytes 1+ PUBS MCHC (33.0 - 37.0 G/DL) 33.7 12/17 12/17 12/17 2120 1530 1215 Blood Gas pH (7.35 - 7.45 PH) 7.37 pCO2 (35 - 45 TORR) 31 L pO2 (80 - 100 TORR) 65 L HCO3 (21 - 28 MEQ/L) 17 L ABG O2 Sat (Measured) (>96.0 %) 90.0 L P-50 (Temp Corrected) YES Carboxyhemoglobin (1.5 - 5.0 %) 0.6 L O2 Concentration % 100% Temperature (97.0 - 100.0 FARH) 99.3 Respiration Rate (BPM) 20 O2 Delivery Method VENT Vent Mode AC Expiratory Pressure (CMH2O/P) 5 Tidal Volume (CC) 500 Chemistry Sodium (137 - 145 mmol/L) 137 Potassium (3.5 - 5.1 mmol/L) 4.0 Chloride (98 - 107 mmol/L) 108 H Carbon Dioxide (22 - 30 mmol/L) 18 L Anion Gap (5 - 16) 12 BUN (9 - 20 mg/dL) 55 H Creatinine (0.7 - 1.2 mg/dL) 2.3 H Estimated GFR (>60 ml/min) 28 L Glucose (65 - 99 mg/dL) 265 H Calcium (8.4 - 10.2 mg/dL) 7.3 L Phosphorus (2.5 - 4.5 mg/dL) 5.2 H Magnesium (1.6 - 2.3 mg/dL) 2.0 Total Bilirubin (0.2 - 1.3 mg/dL) 0.5 AST (17 - 59 U/L) 1308 H ALT (21 - 72 U/L) 1035 H Troponin I (<0.11 ng/ml) 23.50 *H Albumin (3.5 - 5.0 g/dL) 2.4 L Coagulation APTT (25 - 37 SEC) 83 H Miscellaneous Phlebotomy Draw Site RIGHT RADIAL Last 24 Hours of Evens Results: Blood cultures December 15 positive for Staph aureus sensitive to Oxacillin Blood cultures December 17 so far negative Urine culture December 16 negative Recent Imaging Studies: Chest x-ray December 18 persistent left-sided airspace disease Assessment/Plan Impression: Staph aureus sepsis presumably secondary to pneumonia with a dense consolidation in the left lung, now on a ventilator, requiring a significant amount of oxygen, and with recent requirement of pressors for hypotension, with the development of acute renal failure, possibly secondary to the hypotension or sepsis. He remains on Vancomycin, with temperatures and white blood cell count normal, but his antibiotics can be adjusted as his Staph aureus is sensitive to Oxacillin. Suggestion: 1. Obtain records [facility] 2. Sputum culture 3. Would remove left femoral triple-lumen catheter as soon as possible 4. Will need to consider GEORGI 5. Discontinue Vancomycin 6. Begin Cefazolin 1 g IV every 8 hours
[2016-12-18 12:25] LABS: ABSOLUTE BASOPHIL COUNT 0 /CUMM (0.0-0.2); ABSOLUTE EOSINOPHIL COUNT 0 /CUMM (0.0-0.7); ABSOLUTE GRANULOCYTE CT 8.3 /CUMM (1.4-6.5); ABSOLUTE LYMPH COUNT 0.6 /CUMM (1.2-3.4); ABSOLUTE MONOCYTE COUNT 0.8 /CUMM (0.10-0.60); BASOPHIL % 0.1 % (0.0-2.0); EOSINOPHIL % 0 % (0-5); GRANULOCYTE % 85.9 % (42.2-75.2); HEMATOCRIT 38.6 % (42-52); MEAN CORPUSCULAR HGB 30.6 PG (27.0-31.0); MEAN CORPUSCULAR HGB CONC 33.8 G/DL (33.0-37.0); MEAN CORPUSCULAR VOLUME 90.4 FL (80.0-94.0); MEAN PLATELET VOLUME 10.9 FL (7.4-10.4); PLATELET COUNT 153 /CUMM (130-400); RBC DISTRIBUTION WIDTH 14.3 % (11.5-14.5); RED BLOOD CELL CT 4.27 /CUMM (4.70-6.10); WHITE BLOOD CELL COUNT 9.7 /CUMM (4.8-10.8)
--- NOTE | 2016-12-18 12:59 | PN- CRCU ---
Subjective HPI/Critical Care Issues: pt seen and examined remains on mechanical ventilation ros unobtainable secondary to intubation and sedation troponins elevated cardiology input reviewed started on levophed overnight, currently held stap sensitive to cefazolin Objective Current Medications: Current Medications Sig/Damon Start time Last Medication Dose Route Stop Time Status Admin Acetaminophen 650 MG Q6P PRN 12/16 0015 AC 12/16 PO 2040 Acetaminophen/ 1 TAB Q6P PRN 12/16 0015 AC Hydrocodone Bitart PO Aspirin 81 MG DAILY 12/16 1000 AC 12/18 PO 1031 Atorvastatin Calcium 40 MG 1700 12/16 1700 AC 12/17 PO 1715 Carvedilol 6.25 MG BID 12/16 1000 AC 12/18 PO 1032 Cefazolin Sodium 1,000 MG IQ8 12/18 1600 AC IV Clopidogrel Bisulfate 75 MG DAILY 12/16 1000 AC 12/18 PO 1032 Finasteride 5 MG DAILY 12/16 1000 AC 12/16 PO 0914 Heparin Sodium 25,000 UNIT Q24H 12/16 0530 AC 12/18 (Porcine) IV 0623 Sodium Chloride 500 ML Insulin Aspart 0 TIDAC 12/16 0800 DC 12/17 SC 1814 Insulin Human Regular 0 Q6 12/18 0626 AC 12/18 SC 1214 Lorazepam 50 MG Q12H 12/18 1400 AC Dextrose/Water 500 ML IV Lorazepam 50 MG Q24H 12/17 2000 DC 12/18 Dextrose/Water 500 ML IV 0213 Lorazepam 50 MG ONCE ONE 12/17 1400 DC 12/17 Sodium Chloride 500 ML IV 12/17 2359 1400 Lorazepam 2 MG ONE ONE 12/17 1315 DC 12/17 IV 12/17 1316 1400 Norepinephrine 4 MG Q24H 12/17 2200 AC 12/17 Sodium Chloride 250 ML IV 2201 Norepinephrine 4 MG .STK-MED ONE 12/17 2150 DC IV 12/17 2151 Omeprazole 20 MG DAILY AC 12/16 0700 DC 12/17 PO 0504 Oxycodone HCl 10 MG Q6P PRN 12/16 0015 AC PO Pantoprazole Sodium 40 MG DAILY 12/18 1000 AC 12/18 IV 1031 Polyethylene Glycol 17 GM DAILY PRN 12/16 1015 AC PO Propofol 1,000 MG Q24H 12/17 1130 DC 12/17 N/A 100 ML IV 1130 Ranolazine 500 MG BID 12/16 0010 AC 12/16 PO 2040 Sodium Chloride 500 ML BOLUS ONE 12/17 2144 DC 12/17 IV 12/17 Sodium Chloride 1,000 ML Q10H 12/17 2144 DC IV Sodium Chloride 500 ML BOLUS ONE 12/17 2044 DC 12/17 IV 12/17 Tamsulosin HCl 0.4 MG DAILY 12/16 1000 AC PO Vancomycin HCl 1,000 MG DAILY 12/19 1000 CAN Dextrose/Water 250 ML IV Vancomycin HCl 1,000 MG DAILY 12/18 1000 DC Dextrose/Water 250 ML IV Vancomycin HCl 1,000 MG Q12H 12/17 0300 DC 12/18 Dextrose/Water 250 ML IV 0213 Vital Signs & I&O Last 24 Hrs of Vitals and I&O: Vital Signs Date Time Temp Pulse Resp B/P Pulse O2 O2 Flow FiO2 Ox Delivery Rate 12/18 1200 92 Ventilator 75% 12/18 1159 75 12/18 1032 99.6 108 25 134/66 12/18 0815 75 12/18 0800 92 Ventilator 75% 12/18 0800 99.6 100 25 120/60 92 Ventilator 75% 12/18 0545 75 12/18 0400 93 Ventilator 75% 12/18 0338 75 12/18 0109 75 12/18 0000 97.1 74 23 110/62 92 Ventilator 75% 12/18 0000 92 Ventilator 75% 12/17 2208 75 12/17 2202 72 82/51 12/17 2202 71 82/51 12/17 2201 72 82/51 12/17 2000 94 Ventilator 75% 12/17 1900 85 12/17 1625 100 12/17 1600 89 Ventilator 100% 12/17 1600 98.0 100 20 100/70 94 Ventilator 100% 12/17 1429 100 12/17 1315 100 12/17 1300 134 104/60 Intake & Output 12/18 1600 12/18 0800 12/18 0000 Intake Total 893 1744 Output Total 260 160 Balance 633 1584 Intake, IV 893 1744 Intake, Oral 0 Number 0 0 Bowel Movements Output, 100 50 Gastric Drainage Output, Urine 160 110 Patient 152 lb Weight Exam Other Physical Findings: gen sedated, intubated heent ett cvs s1, s2 lungs transmitted abd soft, bs+ ext no edema Results Last 24 Hrs of Lab Results: Laboratory Tests 12/18/16 1110: Sodium Pending, Potassium Pending, Chloride Pending, Carbon Dioxide Pending, Anion Gap Pending, BUN Pending, Creatinine Pending, Glucose Pending, Calcium Pending, Phosphorus Pending, Magnesium Pending, Total Bilirubin Pending, AST Pending, ALT Pending, Troponin I Pending, Albumin Pending, CBC w Diff NO MAN DIFF REQ, RBC 4.27 L, MCV 90.4, MCH 30.6, RDW 14.3, MPV 10.9 H, Gran % 85.9 H , Lymphocytes % 6.0 L, Monocytes % 8.0, Eosinophils % 0, Basophils % 0.1, Absolute Granulocytes 8.3 H, Absolute Lymphocytes 0.6 L, Absolute Monocytes 0.8 H, Absolute Eosinophils 0, Absolute Basophils 0, PUBS MCHC 33.8 12/18/16 0945: APTT 65 H 12/18/16 0435: Anion Gap 11, Estimated GFR 29 L, Glucose 248 H, Calcium 7.4 L, Phosphorus 5.0 H, Magnesium 2.0, Total Bilirubin 0.5, AST 1272 H, ALT 1078 H, Troponin I 40.50 *H, Albumin 2.4 L, CBC w Diff MAN DIFF ORDERED, RBC 4.13 L, MCV 90.7, MCH 30.6, RDW 14.1, MPV 10.9 H, Gran % 83.2 H, Lymphocytes % 9.0 L, Monocytes % 7.8, Eosinophils % 0, Basophils % 0 L, Absolute Granulocytes 7.2 H, Segmented Neutrophils 81 H, Band Neutrophils 10 H, Absolute Lymphocytes 0.8 L , Lymphocytes 5 L, Monocytes 4, Absolute Monocytes 0.7 H, Absolute Eosinophils 0, Absolute Basophils 0, Platelet Estimate DECREASED, Polychromasia 1+, Poikilocytosis 1+, Ovalocytes 1+, PUBS MCHC 33.7 12/17/162119: Troponin I 35.10 *H 12/17/162119: Anion Gap 12, Estimated GFR 28 L, Glucose 265 H, Calcium 7.3 L, Phosphorus 5.2 H, Magnesium 2.0, Total Bilirubin 0.5, AST 1308 H, ALT 1035 H, Albumin 2.4 L, APTT 83 H 12/17/16 1530: Troponin I 23.50 *H Impression/Plan Impression/Plan Impression/Plan: Impression 76 year old man -hypoxemic respiratory failure etiology secondary to non-cardiogenic edmea (ARDS ) moderate to severe -elevated troponins nstemi -staph aureus bacteremia -multi-organ dysfunction syndrome - MODS Plan Respiratory -continue low tidal volume ventilation per ARDSnet protocol -PEEP as needed -goal spo2 88-92% -sedation ID -ID appreciated -Cefazolin for S. Aureus sensitive to Oxacillin -will consider GEORGI per cardiology CVS -f/u cardiology recommendations -cont heparin drip Heme -heparin gtt, coag monitoring per protocol Metabolic -ins/outs -monitor electrolytes Alimentary -NPO for now Neuro -sedation to comfort DVT prophylaxis at all times (heparin gtt) TTS 40 min
[2016-12-18 16:00] VITALS: BP 118/68
--- NOTE | 2016-12-18 16:23 | NUR ---
PT IS HAVING A BEDSIDE ECHO PERFORMED. REMAINS ON THE ATIVAN GTT AT 4MG/HR WITH AN SAS OF 1. PER DR MARTINES THE ATIVAN GTT IS TO TRY AND KEEP THE PT FROM OVER BREATHING THE VENT. RR IS CURRENTLY 24-28 WITH THE PT ON AN AC OF 20. OTHERWISE, THE PT'S ASSESSMENT REMAINS UNCHANGED.
--- NOTE | 2016-12-18 17:46 | ECHOCARDIOGRAM REPORT ---
CAITY BELL Age: 76 : 1940 Gender: M Exam Date: 12/18/2016 16:19 Exam Location: [facility] Ht (in): 72 Wt (lb): 152 BSA: 1.86 BP: 134 / 66 Ordering Physician: JESUS VALDES MD Referring Physician: Yayo Jimenez MD Chief, SoC Technologist: Rosita Pryor [facility] Room Number: 108 Indications: SHORTNESS OF BREATH Rhythm: Sinus Technical Quality: Good FINDINGS Left Ventricle Normal size left ventricle. Mild concentric left ventricular hypertrophy. The interventricular septum contracts fairly well. The lateral wall and posterior wall and inferior wall are hypokinetic to akinetic. Overall left ventricular systolic function is poor. Estimated ejection fraction is 20-25%. Right Ventricle Right Atrium Left Atrium Mitral Valve The mitral valve is thickened. There is moderate mitral regurgitation. Aortic Valve The aortic valve is thickened. There is mild aortic regurgitation. Tricuspid Valve Pulmonic Valve Pericardium There is a left pleural effusion seen. Great Vessels CONCLUSIONS This is a limited study mainly to look at left ventricular function. Full Doppler and valvular analyses were not done. Normal size left ventricle. Mild concentric left ventricular hypertrophy. The interventricular septum contracts fairly well. The lateral wall and posterior wall and inferior wall are hypokinetic to akinetic. Overall left ventricular systolic function is poor. Estimated ejection fraction is 20-25%. There is moderate mitral regurgitation. There is mild aortic regurgitation. There is a left pleural effusion seen. Compared to previous study wall motion abnormalities are more prominent and global ejection fraction has decreased significantly. Yayo Jimenez M.D. (Electronically Signed) Final Date: 18 December 2016 17:45 MEASUREMENTS (Male / Female) Normal Values 2D ECHO LV Diastolic Diameter PLAX 4.9 cm 4.2 - 5.9 / 3.9 - 5.3 cm LV Systolic Diameter PLAX 4.4 cm 2.1 - 4.0 cm LV Fractional Shortening PLAX 10.2 % 25 - 46 % LV Ejection Fraction 2D Teich 22.3 % IVS Diastolic Thickness 1.3 cm LVPW Diastolic Thickness 1.2 cm LV Relative Wall Thickness 0.5 RV Internal Dim ED PLAX 2.4 cm 1.9 - 3.8 cm LV Ejection Fraction MOD BP 20.0 % >= 55 % LV Diastolic Length 4C 8.9 cm 6.9 - 10.3 cm LV Diastolic Area 4C 31.5 cm LV Diastolic Volume MOD 4C 91.0 cm LV Ejection Fraction MOD 4C 22.0 % LV Stroke Volume MOD 4C 20.0 cm LV Systolic Length 4C 8.0 cm LV Systolic Area 4C 26.0 cm LV Systolic Volume MOD 4C 71.0 cm LV Ejection Fraction MOD 2C 21.3 % LV Diastolic Volume 4C AL 94.2 cm 85 - 139 / 69 - 109 cm LV Systolic Volume 4C AL 72.1 cm LV Ejection Fraction 4C AL 23.5 % LV Stroke Volume 4C AL 22.1 cm LV Ejection Fraction 2C AL 21.9 %
--- NOTE | 2016-12-18 19:25 | Event Note ---
Event Note Event Note: Medical records obtained from [place], [place] this afternoon: Screening of the records revealed that patient had femoral angiography on 2016 and was discharged to home the same day (faxed pages [phone]) with no complications then according to the records. Few other findings from his record is echocardiogram showed mild concentric left ventricular hypertrophy, estimated LVEF is 55-60%, severe hypokinesis of the basal inferior and inferoseptal ortiz, normal right ventricular size and function, mild aortic regurgitation, trace mitral and pulmonic regurgitation, no pericardial effusion, signed on 11/26/2016. (faxed page [phone]) His carotid artery ultrasound from 09/10/2016 showed right carotid -- mild plaque, peak velocity 99 cm/s and 22 cm/s in the distal ICA; left carotid-- moderate heterogeneous and calcified plaque in the CCA, carotid bulb, and proximal ICA. Mid ICA peak systolic velocity 404 cm/s, diastolic velocity 91 cm /s. Distal ICA peak systolic velocity 393 cm/s, diastolic velocity 99 cm/s. 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 EKG done on 12/13/2016 shows normal sinus rhythm, regular at 66 bpm, KS interval 172, QRS 152, QTC 490, right bundle branch block, no obvious ST-T changes , and Q waves in lead II, and lead III suggestive of older ischemic cardiac events. A copy of the obtained records has been placed in the chart. Resident Dr Becka Wyatt notified about the findings.
[2016-12-18 22:52] LABS: PTT 65 SEC (25-37)
[2016-12-18 23:00] VITALS: BP 96/51
--- NOTE | 2016-12-18 23:31 | NUR ---
2000=AXILLARY TEMP 98.0 2140= WHEN TURNING PT BACK AND BUTTOCK FELT WARM TO TOUCH, RECTAL TEMP 102.0 MD GUILLORY MADE AWARE, IV TYLENOL ORDERED AND ADMINISTERED. 2299= REPEAT RECTAL TEMP 100.7.
[2016-12-19 06:01] LABS: ABSOLUTE BASOPHIL COUNT 0 /CUMM (0.0-0.2); ABSOLUTE EOSINOPHIL COUNT 0 /CUMM (0.0-0.7); ABSOLUTE GRANULOCYTE CT 6.3 /CUMM (1.4-6.5); ABSOLUTE LYMPH COUNT 0.8 /CUMM (1.2-3.4); BASOPHIL % 0.1 % (0.0-2.0); EOSINOPHIL % 0.1 % (0-5); GRANULOCYTE % 78.2 % (42.2-75.2); HEMATOCRIT 36.5 % (42-52); MEAN CORPUSCULAR HGB 30.5 PG (27.0-31.0); MEAN CORPUSCULAR HGB CONC 33.6 G/DL (33.0-37.0); MEAN CORPUSCULAR VOLUME 90.8 FL (80.0-94.0); MEAN PLATELET VOLUME 10.8 FL (7.4-10.4); PLATELET COUNT 134 /CUMM (130-400); RBC DISTRIBUTION WIDTH 13.8 % (11.5-14.5); RED BLOOD CELL CT 4.02 /CUMM (4.70-6.10); WHITE BLOOD CELL COUNT 8.1 /CUMM (4.8-10.8)
--- NOTE | 2016-12-19 06:49 | PN- Resident CRCU ---
Subjective HPI/CRCU Issues: Patient is in ICU for ventilatory support after intubation, severe sepsis, multiorgan failure. I followed up and examined the patient today. Vitals have been stable. He is intubated, breathing according to ventilator settings, and SpO2 92%. He hasn't spiked any fever. Objective Vital Signs & I&O Last 8 Hrs of Vitals and I&O: Vital Signs Date Time Temp Pulse Resp B/P Pulse O2 O2 Flow FiO2 Ox Delivery Rate 12/19 1200 93 Ventilator 45% 12/19 1111 45 12/19 0945 97.3 71 20 111/59 12/19 0823 45 12/19 0800 97.3 73 20 118/70 97 Ventilator 50% 12/19 0800 97 Ventilator 50% 12/19 0700 72 20 112/62 96 Ventilator 50% 12/19 0539 50 Exam General Appearance: well developed/nourished, no apparent distress, comfortable, intubated Other Physical Findings: Head: Normocephalic, atraumatic Eyes: Pupils normal in size, regular, reacting to light and accommodation, EOM normal Nose: Normal on inspection Neck: Supple, full range of motion, no thyromegaly Heart: tachycardic, regular rhythm Lung: Intubated, crackles heard bilaterally, no wheeze Abd: Soft, non-tender, no distention appreciated Extremities: Normal knee exam bilaterally, no pedal edema, Right femoral vein has triple lumen catheter Neuro: Normal reflex b/l Skin: Warm and dry Central Line Site: Left femoral vein Date In: 12/17/16 Need for Catheter: pressors, amio/cardiac meds NG Tube Site: Orogastric tube Date In: 12/17/16 Still Needed? Yes IV Drips IV Drips: Ativan drip Heparin drip Current Medications: Current Medications Sig/Damon Start time Last Medication Dose Route Stop Time Status Admin Acetaminophen 1,000 MG Q6P PRN 12/18 2144 AC 12/18 N/A 1 UNIT IV 2143 Acetaminophen 650 MG Q6P PRN 12/16 14 AC 12/16 PO 0 Acetaminophen/ 1 TAB Q6P PRN 12/16 14 AC Hydrocodone Bitart PO Aspirin 81 MG DAILY 12/16 1000 AC 12/19 PO 0945 Atorvastatin Calcium 40 MG 1700 12/16 1700 AC 12/18 PO 1701 Carvedilol 6.25 MG BID 12/18 2200 AC 12/19 PO 0945 Carvedilol 6.25 MG BID 12/16 1000 DC 12/18 PO 1032 Cefazolin Sodium 1,000 MG IQ8 12/18 1600 AC 12/19 IV 0810 Clopidogrel Bisulfate 75 MG DAILY 12/16 1000 AC 12/19 PO 0945 Finasteride 5 MG DAILY 12/16 1000 DC 12/16 PO 0914 Heparin Sodium 5,000 UNIT Q8 12/19 1400 AC (Porcine) SC Heparin Sodium 25,000 UNIT Q24H 12/16 0530 DC 12/19 (Porcine) IV 0551 Sodium Chloride 500 ML Insulin Human Regular 0 Q6 12/18 0626 AC 12/19 SC 1147 Lorazepam 50 MG Q12H 12/18 1400 AC 12/19 Dextrose/Water 500 ML IV 0221 Norepinephrine 4 MG Q24H 12/17 2200 DC 12/17 Sodium Chloride 250 ML IV 2201 Oxycodone HCl 10 MG Q6P PRN 12/16 0015 AC PO Pantoprazole Sodium 40 MG DAILY 12/18 1000 AC 12/19 IV 0945 Polyethylene Glycol 17 GM DAILY PRN 12/16 1015 AC PO Potassium Chloride 20 MEQ ONCE ONE 12/19 0800 DC 12/19 PO 12/19 0801 0945 Ranolazine 500 MG BID 12/16 0010 DC 12/16 PO 2041 Tamsulosin HCl 0.4 MG DAILY 12/16 1000 DC PO CXR Findings: IMPRESSION: Slight improvement in appearances since yesterday with decreasing, but still present, left infiltrate. Findings are consistent with resolving CHF. Superimposed pneumonia cannot be excluded. DICTATED BY: ALBER PEREZ MD DATE/TIME DICTATED:12/19/16619 GUIDANCE SECRETARY:EMANUEL DATE/TIME TRANSCRIBED:12/19/16619 Miscellaneous Findings: X-ray of right hip area: IMPRESSION: - No acute findings. - There are no radiopaque foreign bodies at the right hip. DICTATED BY: LORENZA DURAN MD DATE/TIME DICTATED:12/19/16851 GUIDANCE SECRETARY:RADTrentEMANUEL DATE/TIME TRANSCRIBED:12/19/16851 Impression/Plan Impression/Problem List Impression: 68-year-old male with past medical history significant for hypertension, hyperlipidemia, peripheral vascular disease, bladder cancer diagnosed over one year ago, oral HSV, CAD with a triple bypass in 1993, who has all [facility] routine [facility], who presents with chief complaint of lower extremity weakness, fever, chills for 20 after having a vascular procedure at the [facility] a day prior to that. 68-year-old male with past medical history significant for hypertension, hyperlipidemia, peripheral vascular disease, bladder cancer diagnosed over one year ago, oral HSV, CAD with a triple bypass in 1993, who has all his routine medical care at the [facility], who presents with chief complaint of lower extremity weakness, fever, chills. He is being managed in the ICU for the following issues: Multiorgan failure syndrome, slightly improving today For the course of his stay in the ICU, his many organ system has been affected. * His respiratory status deteriorated and he was intubated. He seems to be slightly better today, but is still intubated. * His troponin was persistently elevated, possibly due to severe sepsis, and demand, but NSTEMI is the most likely pathology. His troponin is 17 now, down from the peak of 40. * His blood pressure went down severely, to the point requiring norepinephrine, but has been stable since yesterday morning. * His kidney functions had deteriorated yesterday to creatinine 2.2, but is getting better today. His creatinine today is 1.8. * His liver enzymes were getting elevated, but is getting better today. * His condition has been explained to his , who understands the seriousness of his situation. Respiratory Acute respiratory distress syndrome * Patient is currently intubated, tolerating the ventilation well. Saturation is maintained above 90%, plan to decrease the FiO2 and if still tolerating well plan decrease PEEP towards 5. Currently he is on 8 PEEP. * Patient is being treated for acute respiratory distress syndrome, can be characterized as having moderate ARDS * Adequate sedation with Ativan drip running at 4mg/hr * Continuing cefazolin as staph aureus is found to be sensitive to cephalosporin from this morning's lab resport Infectious disease Sepsis, possibly secondary to pneumonia * Continuing cefazolin as staph aureus is found to be sensitive to cephalosporin from this morning's lab resport * Await repeat blood culture * Consider CT of the chest if fevers persist * Consider GEORGI if patient continues to deteriorate without possible explanation * Femoral line on left side was taken out and made sure that he is not bleeding from the site. Cardiovascular system Patient's repeat echo shows ejection fraction of 25% from 45% with wall motion abnormalities that appears to be chronic. His troponin was persistently elevated, possibly due to severe sepsis, and demand, but NSTEMI is the most likely pathology. His troponin is 17 now, down from the peak of 40. Cardiology service has been on board, and recommended getting records from the [facility] spatially about recent vascular procedure. It was found to be right femoral vein angiography. This AM before my shift, "a doctor from [facility]" called the ICU and informed that the patient had a closure device placed last week. * X-ray of the area did not show any radio-opaque foreign body. On palpation, nothing abnormal felt. Possibly the closure device is in place and/or dissolved if it is absorbable. * Cardiology consult appreciated * We'll continue to check EKG and trend troponins only daily from now per Dr Jimenez (potato peeler). Hematology * Chaning IV heparin drip to SQ heparin TID for DVT ppx only Metabolic Continue to follow chemistries and repeat electrolytes accordingly. IV fluids running. Alimentary * Since he is intubated, he is kept nothing by mouth for now. IV fluids running. Nutrition consult placed for tube feeding. Awaiting their suggestion. Neurology Patient had grossly normal neurological examination yesterday except for anxiety due to his respiratory distress. Since he is on sedation for intubation, will continue to monitor him for adequate sedation. DVT prophylaxis with heparin drip CODE STATUS: Full code Problem List: 1. Sepsis 2. ARDS (adult respiratory distress syndrome) 3. NSTEMI (non-ST elevated myocardial infarction) 4. MODS (multiple organ dysfunction syndrome) 5. PVD (peripheral vascular disease) with claudication 6. CAD (coronary artery disease) Pain Ratin Pain Location: cannot assess Pain Plan: prn Tomorrow's Labs & Rationales: ICU lab bundle, CXR, CBC to follow tube placement, sepsis, lytes disbalance. Plan DVT/Prophylaxis: pharmacological Plan DVT/Prophylaxis: pharmacological
[2016-12-19 07:00] VITALS: BP 112/62
[2016-12-19 08:00] VITALS: BP 118/70
--- NOTE | 2016-12-19 08:22 | RADIOLOGY REPORT ---
EXAMINATION: XR PORTABLE CHEST CLINICAL INFORMATION: Intubated. Respiratory failure. Pneumonia. Follow up pulmonary status. COMPARISON: X-ray portable chest 12/18/2016. TECHNIQUE: Portable AP view of the chest was obtained. FINDINGS: Patient remains intubated with ET tube approximately 6 cm above the kim. Patient status post median sternotomy with heart size within normal limits. Diffuse pulmonary infiltrates and vascular blurring persists but the infiltrative appearance in the left lung appears slightly better. No pneumothorax is seen. No definite effusions are present. There is left lower lobe collapse with obscuration of the left hemidiaphragm. IMPRESSION: Slight improvement in appearances since yesterday with decreasing, but still present, left infiltrate. Findings are consistent with resolving CHF. Superimposed pneumonia cannot be excluded.
--- NOTE | 2016-12-19 08:59 | RADIOLOGY REPORT ---
EXAMINATION: XR HIP, RIGHT CLINICAL INFORMATION: Hip device localization. COMPARISON: None TECHNIQUE: Single AP view of right hip was obtained FINDINGS: The visualized pelvic bones and proximal femur are intact. The articular cartilage space of the right hip is maintained. No evidence of acetabular fracture or proximal femoral injury. There are no radiopaque foreign bodies within or around the hip. Enthesophyte formation is observed in multiple locations. Peripheral vessels are calcified. IMPRESSION: - No acute findings. - There are no radiopaque foreign bodies at the right hip.
--- NOTE | 2016-12-19 09:33 | NUR ---
AT 0800 REC'D THE PT ORALLY INTUBATED AND MECHANICALLY VENTILATED PER MD ORDER. THE PT'S O2 SAT WAS 97% ON AN FIO2 OF 50%. AT 0820 THE DECKHAND CLAM DREDGE DECREASED THE FIO2 TO 45%. O2 SAT IS CURRENTLY 94%. THE BS TO THE RUL ARE CLEAR BUT DIMINSHED TO ALL OTHER LUNG FARRELL. SUCTIONED FOR SCANT AMOUNTS OF ELIZONDO THIN OCC BLOOD TINGED SPUTUM. THE PT REMAINS SEDATED ON ATIVAN 4MG/HR OR 40ML/HR INFUSING VIA THE WHIOTE PORT OF THE LF TLC. SAS IS A 1 AND THE PT IS NOT OVER BREATHING THE VENT. PER DR MARTINES THIS IS ACCEPTABLE. TL PUPILS ARE 2MM AND REACT BRISKLY. NO SPONTANEOUS MOVEMENT OF EXTREMITIES NOTED. PT IS IN A NSR WITH FREQ PVC'S PER THE APRN. PT'S K+ IS 3.7 -TO RECEIVE KLOR 20MEQ VIA THE OGT. ABD IS SOFT WITH NORMOACTIVE BOWEL SOUNDS. OGT TO LWS, NOTED TO HAVE SMALL AMOUNT OF BLOODY DRAINIAGE MIXED IN WITH BROWN DRAINAGE. OGT FLUSHED WITH 40ML [id number] NO LONGER BLOODY. MCNEILL IN PLACE DRAINING CLEAR LT MAX URINE. HEPARIN GTT INFUSING AT 9.9U/KG/HR OR 14.4ML/HR VIA THE WHITE PORT OF THE L FEM TLC. ALL IV'S FLUSHED, RH #[id number] UNABLE TO FLUSH. REMOVED AT 0810. BLUE/BROWN PORTS OF TLC FLUSHED AND HAVE BLOOD RETURN.
--- NOTE | 2016-12-19 09:34 | PN- Cardiology ---
Subjective Subjective: Patient remains intubated and sedated. His blood pressure is maintained off of pressors at this time. The BUN is 60. The creatinine is 1.6. Troponins are still elevated but are slowly decreasing. Liver enzymes are elevated but are also decreasing. Records from [facility] were received and reviewed. It appears that his last cardiac catheterization was in 2006 and showed a patent GARVEY to the LAD but occluded vein grafts to his other arteries. It appears that he had an outpatient peripheral angiogram last week but it does not look like there was any intervention done. I cannot find any recent cardiac catheterization. Objective Vital Signs and I&Os Vital Signs Date Time Temp Pulse Resp B/P Pulse O2 O2 Flow FiO2 Ox Delivery Rate 12/19 0823 45 12/19 08 97.3 73 20 118/70 97 Ventilator 50% 12/19 0800 97 Ventilator 50% 12/19 0700 72 20 112/62 96 Ventilator 50% 12/19 0539 50 12/19 0400 95 Ventilator 50% 12/19 0257 50 12/19 0035 50 12/19 0000 95 Ventilator 50% 12/18 2300 100.7 12/18 2300 100.7 80 21 96/51 93 Ventilator 40% 12/18 2235 50 12/18 2144 102.0 12/18 2143 96 125/65 12/18 2000 94 Ventilator 50% 12/18 1915 50 12/18 1600 65 12/18 1600 94 Ventilator 65% 12/18 1600 99.2 102 27 118/68 94 Ventilator 65% 12/18 1425 75 12/18 1200 92 Ventilator 75% 12/18 1159 75 12/18 1032 99.6 108 25 134/66 Intake & Output 12/19 1600 12/19 0800 12/19 0000 12/18 1600 12/18 0800 12/18 0000 Intake Total 437 693 303 420 1831 Output Total 550 475 350 260 160 Balance -113 218 218 558 7596 Intake, IV 437 638 420 943 3564 Intake, Oral 0 0 Intake, Other 45 Intake, Tube 55 Irrigant Number 0 0 0 Bowel Movements Output, 230 50 50 100 50 Gastric Drainage Output, Urine 320 425 300 160 110 Patient 152 lb Weight Physical Exam: He is sedated and intubated and unresponsive Chest is aerating well Heart reveals regular rhythm and no murmurs Extremities decreased pulses no edema Current Medications: Current Medications Sig/Damon Start time Last Medication Dose Route Stop Time Status Admin Acetaminophen 1,000 MG Q6P PRN 12/18 2145 AC 12/18 N/A 1 UNIT IV 2144 Acetaminophen 650 MG Q6P PRN 12/16 0015 AC 12/16 PO 2040 Acetaminophen/ 1 TAB Q6P PRN 12/16 0015 AC Hydrocodone Bitart PO Aspirin 81 MG DAILY 12/16 1000 AC 12/18 PO 1031 Atorvastatin Calcium 40 MG 1700 12/16 1700 AC 12/18 PO 1701 Carvedilol 6.25 MG BID 12/18 2200 AC 12/18 PO 2143 Carvedilol 6.25 MG BID 12/16 1000 DC 12/18 PO 1032 Cefazolin Sodium 1,000 MG IQ8 12/18 1600 AC 12/19 IV 0810 Clopidogrel Bisulfate 75 MG DAILY 12/16 1000 AC 12/18 PO 1032 Finasteride 5 MG DAILY 12/16 1000 DC 12/16 PO 0914 Heparin Sodium 25,000 UNIT Q24H 12/16 0530 AC 12/19 (Porcine) IV 0551 Sodium Chloride 500 ML Insulin Human Regular 0 Q6 12/18 0626 AC 12/19 SC 0550 Lorazepam 50 MG Q12H 12/18 1400 AC 12/19 Dextrose/Water 500 ML IV 0221 Lorazepam 50 MG Q24H 12/17 2000 DC 12/18 Dextrose/Water 500 ML IV 0213 Norepinephrine 4 MG Q24H 12/17 2200 DC 12/17 Sodium Chloride 250 ML IV 2201 Oxycodone HCl 10 MG Q6P PRN 12/16 0015 AC PO Pantoprazole Sodium 40 MG DAILY 12/18 1000 AC 12/18 IV 1031 Polyethylene Glycol 17 GM DAILY PRN 12/16 1015 AC PO Potassium Chloride 20 MEQ ONCE ONE 12/19 0800 DC PO 12/19 0801 Ranolazine 500 MG BID 12/16 0010 DC 12/16 PO 2041 Tamsulosin HCl 0.4 MG DAILY 12/16 1000 DC PO Vancomycin HCl 1,000 MG DAILY 12/19 1000 CAN Dextrose/Water 250 ML IV Results Last 48 Hrs of Labs/Mics: Laboratory Tests 12/19/16 0555: pH 7.41, pCO2 30 L, pO2 105 H, HCO3 19 L, ABG O2 Sat (Measured) 97.0, P-50 ( Temp Corrected) N, Carboxyhemoglobin 0.1 L, O2 Concentration % .50, Respiration Rate 20, O2 Delivery Method VENT, Vent Mode A/C, Expiratory Pressure 8, Tidal Volume 480, Phlebotomy Draw Site RIGHT RADIAL 12/19/16 0520: Anion Gap 9, Estimated GFR 42 L, Glucose 144 H, Calcium 7.4 L, Phosphorus 3.5 , Magnesium 2.3, Total Bilirubin 0.6, AST 845 H, ALT 1062 H, Albumin 2.3 L, CBC w Diff NO MAN DIFF REQ, RBC 4.02 L, MCV 90.8, MCH 30.5, RDW 13.8, MPV 10.8 H, Gran % 78.2 H, Lymphocytes % 9.8 L, Monocytes % 11.8 H, Eosinophils % 0.1, Basophils % 0.1, Absolute Granulocytes 6.3, Absolute Lymphocytes 0.8 L, Absolute Monocytes 1.0 H, Absolute Eosinophils 0, Absolute Basophils 0, PUBS MCHC 33.6 12/18/16 2200: Troponin I 25.50 *H, APTT 65 H 12/18/16 1655: Troponin I 29.30 *H 12/18/16 1622: Lactic Acid Cancelled 12/18/16 1600: Troponin I Cancelled 12/18/16 1450: Lactic Acid 1.7 12/18/16 1110: Anion Gap 9, Estimated GFR 34 L, Glucose 177 H, Calcium 7.5 L, Phosphorus 4.0 , Magnesium 2.0, Total Bilirubin 0.5, AST 1126 H, ALT 1131 H, Troponin I 27.50 *H, Albumin 2.5 L, CBC w Diff NO MAN DIFF REQ, RBC 4.27 L, MCV 90.4, MCH 30.6, RDW 14.3, MPV 10.9 H, Gran % 85.9 H, Lymphocytes % 6.0 L, Monocytes % 8.0, Eosinophils % 0, Basophils % 0.1, Absolute Granulocytes 8.3 H, Absolute Lymphocytes 0.6 L, Absolute Monocytes 0.8 H, Absolute Eosinophils 0, Absolute Basophils 0, PUBS MCHC 33.8 12/18/16 0945: APTT 65 H 12/18/16 0435: Anion Gap 11, Estimated GFR 29 L, Glucose 248 H, Calcium 7.4 L, Phosphorus 5.0 H, Magnesium 2.0, Total Bilirubin 0.5, AST 1272 H, ALT 1078 H, Troponin I 40.50 *H, Albumin 2.4 L, CBC w Diff MAN DIFF ORDERED, RBC 4.13 L, MCV 90.7, MCH 30.6, RDW 14.1, MPV 10.9 H, Gran % 83.2 H, Lymphocytes % 9.0 L, Monocytes % 7.8, Eosinophils % 0, Basophils % 0 L, Absolute Granulocytes 7.2 H, Segmented Neutrophils 81 H, Band Neutrophils 10 H, Absolute Lymphocytes 0.8 L , Lymphocytes 5 L, Monocytes 4, Absolute Monocytes 0.7 H, Absolute Eosinophils 0, Absolute Basophils 0, Platelet Estimate DECREASED, Polychromasia 1+, Poikilocytosis 1+, Ovalocytes 1+, PUBS MCHC 33.7 12/17/162119: Troponin I 35.10 *H 12/17/162119: Anion Gap 12, Estimated GFR 28 L, Glucose 265 H, Calcium 7.3 L, Phosphorus 5.2 H, Magnesium 2.0, Total Bilirubin 0.5, AST 1308 H, ALT 1035 H, Albumin 2.4 L, APTT 83 H 12/17/16 1530: Troponin I 23.50 *H 12/17/16 1215: pH 7.37, pCO2 31 L, pO2 65 L, HCO3 17 L, ABG O2 Sat (Measured) 90.0 L, P-50 (Temp Corrected) YES, Carboxyhemoglobin 0.6 L, O2 Concentration % 100%, Temperature 99.3, Respiration Rate 20, O2 Delivery Method VENT, Vent Mode AC, Expiratory Pressure 5, Tidal Volume 500, Phlebotomy Draw Site RIGHT RADIAL 12/17/16 0949: Troponin I 11.90 *H, APTT 53 H Recent Imaging Studies: CONCLUSIONS This is a limited study mainly to look at left ventricular function. Full Doppler and valvular analyses were not done. Normal size left ventricle. Mild concentric left ventricular hypertrophy. The interventricular septum contracts fairly well. The lateral wall and posterior wall and inferior wall are hypokinetic to akinetic. Overall left ventricular systolic function is poor. Estimated ejection fraction is 20-25%. There is moderate mitral regurgitation. There is mild aortic regurgitation. There is a left pleural effusion seen. Compared to previous study wall motion abnormalities are more prominent and global ejection fraction has decreased significantly. Yayo Jimenez M.D. (Electronically Signed) Final Date: 18 December 2016 17:45 Assessment/Plan Assessment/Plan The patient is acutely ill. He is growing staph aureus in the blood. He is still intermittently febrile. His troponins are decreasing slowly. His limited echocardiogram yesterday showed decreased left ventricular systolic function. Overall his condition is very slightly improved from yesterday, however the deteriorating left ventricular systolic function is worrisome, especially in view of the fact that he apparently has only one functioning bypass graft. The episode of hypotension may have caused some additional myocardial damage as evidenced by the second bump in troponins. For now I would continue observation and support. Since he has been on heparin for over 48 hours this can probably be discontinued at this time. Continue telemetry? Yes
--- NOTE | 2016-12-19 10:30 | PN- Infect Dx ---
Subjective Subjective: MAXIMUM TEMPERATURE 102. He remains sedated on the ventilator. Objective Last 24 Hrs of Vital Signs/I&O Vital Signs Date Time Temp Pulse Resp B/P Pulse O2 O2 Flow FiO2 Ox Delivery Rate 12/19 0945 97.3 71 20 111/59 12/19 0823 45 12/19 0800 97.3 73 20 118/70 97 Ventilator 50% 12/19 0800 97 Ventilator 50% 12/19 0700 72 20 112/62 96 Ventilator 50% 12/19 0539 50 12/19 0400 95 Ventilator 50% 12/19 0257 50 12/19 0035 50 12/19 0000 95 Ventilator 50% 12/18 2300 100.7 12/18 2300 100.7 80 21 96/51 93 Ventilator 40% 12/18 2235 50 12/18 2144 102.0 12/18 2143 96 125/65 12/18 2000 94 Ventilator 50% 12/18 1915 50 12/18 1600 65 12/18 1600 94 Ventilator 65% 12/18 1600 99.2 102 27 118/68 94 Ventilator 65% 12/18 1425 75 12/18 1200 92 Ventilator 75% 12/18 1159 75 12/18 1032 99.6 108 25 134/66 Intake & Output 12/19 1600 12/19 0800 12/19 0000 Intake Total 437 693 Output Total 550 475 Balance -113 218 Intake, IV 437 638 Intake, Oral 0 Intake, Tube 55 Irrigant Number 0 Bowel Movements Output, 230 50 Gastric Drainage Output, Urine 320 425 Physical Exam Other Physical Findings: He is sedated on the ventilator Lungs are clear Heart regular rhythm with no murmur Extremities no cyanosis, clubbing or edema; left femoral line remains in place with no inflammation at the site Cates catheter remains in place Results Last 24 Hours of Lab Results: Laboratory Tests 12/19 12/19 0555 0520 Blood Gas pH (7.35 - 7.45 PH) 7.41 pCO2 (35 - 45 TORR) 30 L pO2 (80 - 100 TORR) 105 H HCO3 (21 - 28 MEQ/L) 19 L ABG O2 Sat (Measured) (>96.0 %) 97.0 P-50 (Temp Corrected) N Carboxyhemoglobin (1.5 - 5.0 %) 0.1 L O2 Concentration % .50 Respiration Rate (BPM) 20 O2 Delivery Method VENT Vent Mode A/C Expiratory Pressure (CMH2O/P) 8 Tidal Volume (CC) 480 Chemistry Sodium (137 - 145 mmol/L) 142 Potassium (3.5 - 5.1 mmol/L) 3.7 Chloride (98 - 107 mmol/L) 111 H Carbon Dioxide (22 - 30 mmol/L) 22 Anion Gap (5 - 16) 9 BUN (9 - 20 mg/dL) 60 H Creatinine (0.7 - 1.2 mg/dL) 1.6 H Estimated GFR (>60 ml/min) 42 L Glucose (65 - 99 mg/dL) 144 H Calcium (8.4 - 10.2 mg/dL) 7.4 L Phosphorus (2.5 - 4.5 mg/dL) 3.5 Magnesium (1.6 - 2.3 mg/dL) 2.3 Total Bilirubin (0.2 - 1.3 mg/dL) 0.6 AST (17 - 59 U/L) 845 H ALT (21 - 72 U/L) 1062 H Albumin (3.5 - 5.0 g/dL) 2.3 L Hematology CBC w Diff NO MAN DIFF REQ WBC (4.8 - 10.8 /CUMM) 8.1 RBC (4.70 - 6.10 /CUMM) 4.02 L Hgb (14.0 - 18.0 G/DL) 12.3 L Hct (42 - 52 %) 36.5 L MCV (80.0 - 94.0 FL) 90.8 MCH (27.0 - 31.0 PG) 30.5 RDW (11.5 - 14.5 %) 13.8 Plt Count (130 - 400 /CUMM) 134 MPV (7.4 - 10.4 FL) 10.8 H Gran % (42.2 - 75.2 %) 78.2 H Lymphocytes % (20.5 - 51.1 %) 9.8 L Monocytes % (1.7 - 9.3 %) 11.8 H Eosinophils % (0 - 5 %) 0.1 Basophils % (0.0 - 2.0 %) 0.1 Absolute Granulocytes (1.4 - 6.5 /CUMM) 6.3 Absolute Lymphocytes (1.2 - 3.4 /CUMM) 0.8 L Absolute Monocytes (0.10 - 0.60 /CUMM) 1.0 H Absolute Eosinophils (0.0 - 0.7 /CUMM) 0 Absolute Basophils (0.0 - 0.2 /CUMM) 0 PUBS MCHC (33.0 - 37.0 G/DL) 33.6 Miscellaneous Phlebotomy Draw Site RIGHT RADIAL 12/18 12/18 12/18 12/18 12/18 2200 1655 1622 1600 1450 Chemistry Lactic Acid (0.7 - 2.1 mmol/L) Cancelled 1.7 Troponin I (<0.11 ng/ml) 25.50 *H 29.30 *H Cancelled Coagulation APTT (25 - 37 SEC) 65 H 12/18 1110 Chemistry Sodium (137 - 145 mmol/L) 139 Potassium (3.5 - 5.1 mmol/L) 4.1 Chloride (98 - 107 mmol/L) 108 H Carbon Dioxide (22 - 30 mmol/L) 22 Anion Gap (5 - 16) 9 BUN (9 - 20 mg/dL) 57 H Creatinine (0.7 - 1.2 mg/dL) 1.9 H Estimated GFR (>60 ml/min) 34 L Glucose (65 - 99 mg/dL) 177 H Calcium (8.4 - 10.2 mg/dL) 7.5 L Phosphorus (2.5 - 4.5 mg/dL) 4.0 Magnesium (1.6 - 2.3 mg/dL) 2.0 Total Bilirubin (0.2 - 1.3 mg/dL) 0.5 AST (17 - 59 U/L) 1126 H ALT (21 - 72 U/L) 1131 H Troponin I (<0.11 ng/ml) 27.50 *H Albumin (3.5 - 5.0 g/dL) 2.5 L Hematology CBC w Diff NO MAN DIFF REQ WBC (4.8 - 10.8 /CUMM) 9.7 RBC (4.70 - 6.10 /CUMM) 4.27 L Hgb (14.0 - 18.0 G/DL) 13.1 L Hct (42 - 52 %) 38.6 L MCV (80.0 - 94.0 FL) 90.4 MCH (27.0 - 31.0 PG) 30.6 RDW (11.5 - 14.5 %) 14.3 Plt Count (130 - 400 /CUMM) 153 MPV (7.4 - 10.4 FL) 10.9 H Gran % (42.2 - 75.2 %) 85.9 H Lymphocytes % (20.5 - 51.1 %) 6.0 L Monocytes % (1.7 - 9.3 %) 8.0 Eosinophils % (0 - 5 %) 0 Basophils % (0.0 - 2.0 %) 0.1 Absolute Granulocytes (1.4 - 6.5 /CUMM) 8.3 H Absolute Lymphocytes (1.2 - 3.4 /CUMM) 0.6 L Absolute Monocytes (0.10 - 0.60 /CUMM) 0.8 H Absolute Eosinophils (0.0 - 0.7 /CUMM) 0 Absolute Basophils (0.0 - 0.2 /CUMM) 0 PUBS MCHC (33.0 - 37.0 G/DL) 33.8 Last 24 Hours of Evens Results: Blood cultures December 17 one bottle positive for Staph aureus Blood cultures 2 December 18 negative so far Sputum culture December 18 pending Recent Imaging Studies: Chest x-ray December 15 decreased densities with persistent left infiltrate Assessment/Plan Impression: Staph aureus sepsis presumably secondary to pneumonia with a dense consolidation in the left lung, with respiratory status improving, requiring decreasing amounts of oxygen. He was again febrile yesterday though white blood cell count remains normal on Cefazolin now Day 4 of treatment with repeat blood cultures from yesterday so far negative. His renal function appears to be improving and troponin, though still elevated, is also decreasing. [facility], and it appears that he had a left lower extremity angiogram with no intervention and that he did not have a recent cardiac catheterization. Suggestion: 1. Follow-up recent sputum and blood cultures 2. Would remove left femoral triple-lumen catheter if able to obtain peripheral IV access (will eventually need PICC but would prefer to defer until his blood cultures are negative) 3. Would pursue GEORGI 4. Continue Cefazolin
[2016-12-19 10:48] LABS: PTT 54 SEC (25-37)
--- NOTE | 2016-12-19 11:58 | NUR ---
AT 1150 THE PT WAS NOTED TO HAVE A 6 BEAT RUN OF MULTIFOCAL PVC'S(SEE BACK OF CRCU FLOWSHEET). RETURNED TO [facility] WITH FREQ UNIFOCAL PVC'S WITHOUT MEDICAL INTERVENTION. DR LENARD PELAEZ NOTIFIED AND SHOWED RHYTHM STRIP.
--- NOTE | 2016-12-19 12:09 | PN- CRCU ---
Subjective HPI/Critical Care Issues: pt seen and examined febrile overnight not requiring pressors lfts and troponins trended down fio2 improved propofol d/c'd, on ativan gtt ROS unobtainable Objective Current Medications: Current Medications Sig/Damon Start time Last Medication Dose Route Stop Time Status Admin Acetaminophen 1,000 MG Q6P PRN 12/18 2145 AC 12/18 N/A 1 UNIT IV 2144 Acetaminophen 650 MG Q6P PRN 12/16 0015 AC 12/16 PO 2040 Acetaminophen/ 1 TAB Q6P PRN 12/16 0015 AC Hydrocodone Bitart PO Aspirin 81 MG DAILY 12/16 1000 AC 12/19 PO 0945 Atorvastatin Calcium 40 MG 1700 12/16 1700 AC 12/18 PO 1701 Carvedilol 6.25 MG BID 12/18 2200 AC 12/19 PO 0945 Carvedilol 6.25 MG BID 12/16 1000 DC 12/18 PO 1032 Cefazolin Sodium 1,000 MG IQ8 12/18 1600 AC 12/19 IV 0810 Clopidogrel Bisulfate 75 MG DAILY 12/16 1000 AC 12/19 PO 0945 Finasteride 5 MG DAILY 12/16 1000 DC 12/16 PO 0914 Heparin Sodium 5,000 UNIT Q8 12/19 1400 AC (Porcine) SC Heparin Sodium 25,000 UNIT Q24H 12/16 0530 DC 12/19 (Porcine) IV 0551 Sodium Chloride 500 ML Insulin Human Regular 0 Q6 12/18 0626 AC 12/19 SC 1147 Lorazepam 50 MG Q12H 12/18 1400 AC 12/19 Dextrose/Water 500 ML IV 0221 Norepinephrine 4 MG Q24H 12/17 2200 DC 12/17 Sodium Chloride 250 ML IV 2201 Oxycodone HCl 10 MG Q6P PRN 12/16 0015 AC PO Pantoprazole Sodium 40 MG DAILY 12/18 1000 AC 12/19 IV 0945 Polyethylene Glycol 17 GM DAILY PRN 12/16 1015 AC PO Potassium Chloride 20 MEQ ONCE ONE 12/19 0800 DC 12/19 PO 12/19 0801 0945 Ranolazine 500 MG BID 12/16 0010 DC 12/16 PO 2041 Tamsulosin HCl 0.4 MG DAILY 12/16 1000 DC PO Vital Signs & I&O Last 24 Hrs of Vitals and I&O: Vital Signs Date Time Temp Pulse Resp B/P Pulse O2 O2 Flow FiO2 Ox Delivery Rate 12/19 1200 93 Ventilator 45% 12/19 1111 45 12/19 0945 97.3 71 20 111/59 12/19 0823 45 12/19 0800 97.3 73 20 118/70 97 Ventilator 50% 12/19 0800 97 Ventilator 50% 12/19 0700 72 20 112/62 96 Ventilator 50% 12/19 0539 50 12/19 0400 95 Ventilator 50% 12/19 0257 50 12/19 0035 50 12/19 0000 95 Ventilator 50% 12/18 2300 100.7 12/18 2300 100.7 80 21 96/51 93 Ventilator 40% 12/18 2235 50 12/18 2144 102.0 12/18 2143 96 125/65 12/18 2000 94 Ventilator 50% 12/18 1915 50 12/18 1600 65 12/18 1600 94 Ventilator 65% 12/18 1600 99.2 102 27 118/68 94 Ventilator 65% 12/18 1425 75 Intake & Output 12/19 1600 12/19 0800 12/19 0000 Intake Total 437 693 Output Total 550 475 Balance -113 218 Intake, IV 437 638 Intake, Oral 0 Intake, Tube 55 Irrigant Number 0 Bowel Movements Output, 230 50 Gastric Drainage Output, Urine 320 425 Exam Other Physical Findings: gen sedated, intubated heent ett cvs s1, s2 lungs transmitted abd soft, bs+ ext no edema Results Last 24 Hrs of Lab Results: Laboratory Tests 12/19/16 1110: Troponin I Pending 12/19/16 1000: APTT 54 H 12/19/16 0555: pH 7.41, pCO2 30 L, pO2 105 H, HCO3 19 L, ABG O2 Sat (Measured) 97.0, P-50 ( Temp Corrected) N, Carboxyhemoglobin 0.1 L, O2 Concentration % .50, Respiration Rate 20, O2 Delivery Method VENT, Vent Mode A/C, Expiratory Pressure 8, Tidal Volume 480, Phlebotomy Draw Site RIGHT RADIAL 12/19/16 0520: Anion Gap 9, Estimated GFR 42 L, Glucose 144 H, Calcium 7.4 L, Phosphorus 3.5 , Magnesium 2.3, Total Bilirubin 0.6, AST 845 H, ALT 1062 H, Albumin 2.3 L, CBC w Diff NO MAN DIFF REQ, RBC 4.02 L, MCV 90.8, MCH 30.5, RDW 13.8, MPV 10.8 H, Gran % 78.2 H, Lymphocytes % 9.8 L, Monocytes % 11.8 H, Eosinophils % 0.1, Basophils % 0.1, Absolute Granulocytes 6.3, Absolute Lymphocytes 0.8 L, Absolute Monocytes 1.0 H, Absolute Eosinophils 0, Absolute Basophils 0, PUBS MCHC 33.6 12/18/16 2200: Troponin I 25.50 *H, APTT 65 H 12/18/16 1655: Troponin I 29.30 *H 12/18/16 1622: Lactic Acid Cancelled 12/18/16 1600: Troponin I Cancelled 12/18/16 1450: Lactic Acid 1.7 Impression/Plan Impression/Plan Impression/Plan: Impression 76 year old man -hypoxemic respiratory failure etiology secondary to 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 Aureus sensitive to Oxacillin -will consider GEORGI per cardiology -remove TLC, will require PICC once stabilized CVS -f/u cardiology recommendations -EF worsened Heme -will dc heparin gtt per cardiology Metabolic -ins/outs -monitor electrolytes Alimentary -tube feeds Neuro -sedation to comfort DVT prophylaxis at all times - if heparin gtt d/c, would begin subcutaneous heparin TTS 40 min
[2016-12-19 16:00] VITALS: BP 92/58
--- NOTE | 2016-12-19 16:00 | NUR ---
THE L FEMORAL TLC WAS DC'D AT 1410 BY JESUS LARSEN. PRESSURE WAS APPLIED AND A PRESSURE DRESSING WAS APPLIED. NO BLEEDING NOTED AT THIS TIME. PT NOTED TO HAVE SMALL BLOODY OUTPUT VIA THE OGT X2 BETWEEN 1330 AND 1500. BOTH TIMES THE DRAININAGE CLEARED AFTER FLUSHING THE OGT WITH 20-50ML OF H20. THE THIRD TIME AT 1500 THE OGT WAS PULLED BACK 1 CM AND FLUSHED AGAIN. NO FURTHER BLOODY DRAINAGE NOTED. REMAINS ON THE ATIVAN GTT AT 4MG/HR WITH AN SAS OF 1.
[2016-12-20] VITALS: BP 110/56
[2016-12-20 05:09] LABS: ABSOLUTE BASOPHIL COUNT 0 /CUMM (0.0-0.2); ABSOLUTE EOSINOPHIL COUNT 0 /CUMM (0.0-0.7); ABSOLUTE GRANULOCYTE CT 7.2 /CUMM (1.4-6.5); ABSOLUTE LYMPH COUNT 0.7 /CUMM (1.2-3.4); ABSOLUTE MONOCYTE COUNT 0.9 /CUMM (0.10-0.60); BASOPHIL % 0.2 % (0.0-2.0); EOSINOPHIL % 0.1 % (0-5); GRANULOCYTE % 81.4 % (42.2-75.2); HEMATOCRIT 34.8 % (42-52); MEAN CORPUSCULAR HGB 30.4 PG (27.0-31.0); MEAN CORPUSCULAR HGB CONC 33.8 G/DL (33.0-37.0); MEAN CORPUSCULAR VOLUME 89.9 FL (80.0-94.0); MEAN PLATELET VOLUME 10.8 FL (7.4-10.4); PLATELET COUNT 153 /CUMM (130-400); RBC DISTRIBUTION WIDTH 14.2 % (11.5-14.5); RED BLOOD CELL CT 3.86 /CUMM (4.70-6.10); WHITE BLOOD CELL COUNT 8.9 /CUMM (4.8-10.8)
--- NOTE | 2016-12-20 07:24 | RADIOLOGY REPORT ---
EXAMINATION: XR PORTABLE CHEST CLINICAL INFORMATION: Intubated. COMPARISON: 12/19/2016 TECHNIQUE: Portable AP view of the chest was obtained. FINDINGS: Endotracheal tube is 6.5 cm above the kim. The NG tube extends below the diaphragm. Median sternotomy with CABG. Stable enlarged cardiac silhouette. Moderate central vascular congestion with mild interstitial edema without significant change from prior. Worsening opacity at the left base. IMPRESSION: ET tube 6.5 cm above the kim without significant change. Cardiomegaly and pulmonary edema appear stable. Worsening opacity left base, most likely atelectasis.
[2016-12-20 08:00] VITALS: BP 110/60
--- NOTE | 2016-12-20 10:00 | PN- Infect Dx ---
Subjective Subjective: Afebrile. He remains sedated and unable to provide any history. Objective Last 24 Hrs of Vital Signs/I&O Vital Signs Date Time Temp Pulse Resp B/P Pulse O2 O2 Flow FiO2 Ox Delivery Rate 12/20 0825 40 12/20 0823 69 110/60 12/20 0606 40 12/20 0400 95 Ventilator 40% 12/20 0335 40 12/20 0033 40 12/20 0000 96 Ventilator 40% 12/20 0000 97.7 68 20 110/56 96 Ventilator 40% 12/19 2238 40 12/19 2145 71 20 122/58 12/19 2000 95 Ventilator 40% 12/19 1943 40 12/19 1610 40 12/19 1600 95 Ventilator 40% 12/19 1600 97.1 74 20 92/58 95 Ventilator 40% 12/19 1416 40 12/19 1200 93 Ventilator 45% 12/19 1111 45 Intake & Output 12/20 1600 12/20 0800 12/20 0000 Intake Total 362.8 489 Output Total 450 580 Balance -87.2 -91 Intake, IV 332.8 329 Intake, Oral 0 0 Intake, Other 30 160 Number 0 0 Bowel Movements Output, 50 180 Gastric Drainage Output, Urine 400 400 Physical Exam Other Physical Findings: He is sedated on the ventilator Lungs are clear Heart regular rhythm with no murmur Extremities no cyanosis, clubbing or edema Cates catheter remains in place Results Last 24 Hours of Lab Results: Laboratory Tests 12/20 12/20 0840 0449 Blood Gas pH (7.35 - 7.45 PH) 7.46 H pCO2 (35 - 45 TORR) 30 L pO2 (80 - 100 TORR) 107 H HCO3 (21 - 28 MEQ/L) 21 ABG O2 Sat (Measured) (>96.0 %) 97.0 Carboxyhemoglobin (1.5 - 5.0 %) 0.3 L O2 Concentration % 40% Respiration Rate (BPM) 20 O2 Delivery Method VENT Vent Mode AC Expiratory Pressure (CMH2O/P) 5 Tidal Volume (CC) 480 Chemistry Sodium (137 - 145 mmol/L) 143 Potassium (3.5 - 5.1 mmol/L) 3.9 Chloride (98 - 107 mmol/L) 111 H Carbon Dioxide (22 - 30 mmol/L) 25 Anion Gap (5 - 16) 8 BUN (9 - 20 mg/dL) 46 H Creatinine (0.7 - 1.2 mg/dL) 1.0 Estimated GFR (>60 ml/min) > 60 Glucose (65 - 99 mg/dL) 152 H Calcium (8.4 - 10.2 mg/dL) 7.7 L Phosphorus (2.5 - 4.5 mg/dL) 2.7 Magnesium (1.6 - 2.3 mg/dL) 2.4 H Total Bilirubin (0.2 - 1.3 mg/dL) 0.6 AST (17 - 59 U/L) 692 H ALT (21 - 72 U/L) 879 H Troponin I (<0.11 ng/ml) 10.40 *H Albumin (3.5 - 5.0 g/dL) 2.4 L Hematology CBC w Diff NO MAN DIFF REQ WBC (4.8 - 10.8 /CUMM) 8.9 RBC (4.70 - 6.10 /CUMM) 3.86 L Hgb (14.0 - 18.0 G/DL) 11.7 L Hct (42 - 52 %) 34.8 L MCV (80.0 - 94.0 FL) 89.9 MCH (27.0 - 31.0 PG) 30.4 RDW (11.5 - 14.5 %) 14.2 Plt Count (130 - 400 /CUMM) 153 MPV (7.4 - 10.4 FL) 10.8 H Gran % (42.2 - 75.2 %) 81.4 H Lymphocytes % (20.5 - 51.1 %) 8.2 L Monocytes % (1.7 - 9.3 %) 10.1 H Eosinophils % (0 - 5 %) 0.1 Basophils % (0.0 - 2.0 %) 0.2 Absolute Granulocytes (1.4 - 6.5 /CUMM) 7.2 H Absolute Lymphocytes (1.2 - 3.4 /CUMM) 0.7 L Absolute Monocytes (0.10 - 0.60 /CUMM) 0.9 H Absolute Eosinophils (0.0 - 0.7 /CUMM) 0 Absolute Basophils (0.0 - 0.2 /CUMM) 0 PUBS MCHC (33.0 - 37.0 G/DL) 33.8 Miscellaneous Phlebotomy Draw Site LEFT BRACHIAL 12/19 12/19 1110 1000 Chemistry Troponin I (<0.11 ng/ml) 17.10 *H Coagulation APTT (25 - 37 SEC) 54 H Last 24 Hours of Evens Results: Blood cultures December 18 one bottle positive for gram-positive cocci in clusters Sputum culture December 18 negative so far Recent Imaging Studies: Chest x-ray December 20, personally reviewed, reveals cardiomegaly and pulmonary edema with increased opacity at the left base Assessment/Plan Impression: Staph aureus sepsis presumably secondary to pneumonia, with respiratory status improving and with temperatures and white blood cell count remaining normal on Cefazolin now Day 5 of treatment. He apparently did undergo a left leg angioplasty at the [facility] as initially suspected, and concern was raised by his surgeon at the [facility] regarding the possibility of retention of the sheath in the right femoral artery given the report of Staph aureus bacteremia following the procedure. With persistent bacteremia endocarditis remains a concern and a GEORGI will need to be performed. His renal function continues to improve, which will require adjustment of his Cefazolin dose, and his troponin also continues to decrease. Suggestion: 1. Repeat blood cultures 2 2. Discuss with Radiology regarding appropriate imaging to evaluate for a retained sheath 3. Would pursue GEORGI 4. Increase Cefazolin to 2 g IV every 8 hours
--- NOTE | 2016-12-20 10:26 | PN- CRCU ---
Subjective HPI/Critical Care Issues: pt seen and examined remains intubated chemistries are improving some secretions ros unobtainable secondary to sedation responsive to tactile stimuli Objective Current Medications: Current Medications Sig/Damon Start time Last Medication Dose Route Stop Time Status Admin Acetaminophen 1,000 MG Q6P PRN 12/18 2145 AC 12/18 N/A 1 UNIT IV 2144 Acetaminophen 650 MG Q6P PRN 12/16 0015 AC 12/16 PO 2040 Acetaminophen/ 1 TAB Q6P PRN 12/16 0015 AC Hydrocodone Bitart PO Aspirin 81 MG DAILY 12/16 1000 AC 12/20 PO 0823 Atorvastatin Calcium 40 MG 1700 12/16 1700 AC 12/19 PO 1632 Carvedilol 6.25 MG BID 12/18 2200 AC 12/20 PO 0823 Cefazolin Sodium 1,000 MG IQ8 12/18 1600 AC 12/20 IV 0822 Clopidogrel Bisulfate 75 MG DAILY 12/16 1000 AC 12/20 PO 0823 Heparin Sodium 5,000 UNIT Q8 12/19 1400 AC 12/20 (Porcine) SC 0548 Heparin Sodium 25,000 UNIT Q24H 12/16 0530 DC 12/19 (Porcine) IV 0551 Sodium Chloride 500 ML Insulin Human Regular 0 Q6 12/18 0626 AC 12/20 SC 0548 Lorazepam 50 MG Q12H 12/18 1400 AC 12/20 Dextrose/Water 500 ML IV 0822 Oxycodone HCl 10 MG Q6P PRN 12/16 0015 AC PO Pantoprazole Sodium 40 MG DAILY 12/18 1000 AC 12/20 IV 0822 Polyethylene Glycol 17 GM DAILY PRN 12/16 1015 AC PO Vital Signs & I&O Last 24 Hrs of Vitals and I&O: Vital Signs Date Time Temp Pulse Resp B/P Pulse O2 O2 Flow FiO2 Ox Delivery Rate 12/20 0825 40 12/20 0823 69 110/60 12/20 0606 40 12/20 0400 95 Ventilator 40% 12/20 0335 40 12/20 0033 40 12/20 0000 96 Ventilator 40% 12/20 0000 97.7 68 20 110/56 96 Ventilator 40% 12/19 2238 40 12/19 2145 71 20 122/58 12/19 2000 95 Ventilator 40% 12/19 1943 40 12/19 1610 40 12/19 1600 95 Ventilator 40% 12/19 1600 97.1 74 20 92/58 95 Ventilator 40% 12/19 1416 40 12/19 1200 93 Ventilator 45% 12/19 1111 45 Intake & Output 12/20 1600 12/20 0800 12/20 0000 Intake Total 362.8 489 Output Total 450 580 Balance -87.2 -91 Intake, IV 332.8 329 Intake, Oral 0 0 Intake, Other 30 160 Number 0 0 Bowel Movements Output, 50 180 Gastric Drainage Output, Urine 400 400 Exam Other Physical Findings: gen sedated, intubated heent ett cvs s1, s2 lungs transmitted abd soft, bs+ ext no edema Results Last 24 Hrs of Lab Results: Laboratory Tests 12/20/16 0840: pH 7.46 H, pCO2 30 L, pO2 107 H, HCO3 21, ABG O2 Sat (Measured) 97.0, Carboxyhemoglobin 0.3 L, O2 Concentration % 40%, Respiration Rate 20, O2 Delivery Method VENT, Vent Mode AC, Expiratory Pressure 5, Tidal Volume 480, Phlebotomy Draw Site LEFT BRACHIAL 12/20/16 0449: Anion Gap 8, Estimated GFR > 60, Glucose 152 H, Calcium 7.7 L, Phosphorus 2.7, Magnesium 2.4 H, Total Bilirubin 0.6, AST 692 H, ALT 879 H, Troponin I 10.40 *H, Albumin 2.4 L, CBC w Diff NO MAN DIFF REQ, RBC 3.86 L, MCV 89.9, MCH 30.4, RDW 14.2, MPV 10.8 H, Gran % 81.4 H, Lymphocytes % 8.2 L, Monocytes % 10.1 H , Eosinophils % 0.1, Basophils % 0.2, Absolute Granulocytes 7.2 H, Absolute Lymphocytes 0.7 L, Absolute Monocytes 0.9 H, Absolute Eosinophils 0, Absolute Basophils 0, PUBS MCHC 33.8 12/19/16 1110: Troponin I 17.10 *H Impression/Plan Impression/Plan Impression/Plan: Impression 76 year old man -IMPROVING hypoxemic respiratory failure etiology secondary to non-cardiogenic edmea (ARDS) moderate to severe -elevated troponins nstemi, systolic heart failure -staph aureus bacteremia -IMPROVING multi-organ dysfunction syndrome - MODS Plan Respiratory -continue low tidal volume ventilation per ARDSnet protocol -PEEP as needed -goal spo2 88-92% -sedation ID -ID appreciated -Cefazolin for S. Aureus sensitive to Oxacillin -GEORGI recommended will d/w cardiology CVS -f/u cardiology recommendations -EF worsened Heme -montior h/h, coags Metabolic -ins/outs -monitor electrolytes Alimentary -tube feeds Neuro -sedation to comfort DVT prophylaxis at all times TTS 40 min
--- NOTE | 2016-12-20 11:38 | PN- Resident CRCU ---
Subjective HPI/CRCU Issues: Patient is in ICU for ventilatory support after intubation, severe sepsis, multiorgan failure. I followed up and examined the patient today. Vitals have been stable. He is intubated, breathing according to ventilator settings which was gently tapered yesterday and saturating well with normal work of breathing. He hasn't spiked any fever. Objective Vital Signs & I&O Last 8 Hrs of Vitals and I&O: Vital Signs Date Time Temp Pulse Resp B/P Pulse O2 O2 Flow FiO2 Ox Delivery Rate 12/20 1145 40 12/20 0825 40 12/20 0823 69 110/60 12/20 0606 40 Exam General Appearance: well developed/nourished, no apparent distress, comfortable, intubated Other Physical Findings: Head: Normocephalic, atraumatic Eyes: Pupils normal in size, regular, reacting to light Nose: Normal on inspection Neck: Supple, full range of motion, no thyromegaly Heart: regular rhythm Lung: Intubated, minimal crackles heard bilaterally, no wheeze Abd: Soft, non-tender, no distention appreciated Extremities: Right femoral vein's triple lumen catheter was removed yesterday, no hematoma appreciated (has he was on Heparin drip until yesterday AM) Neuro: Normal reflex b/l Skin: Warm and dry Cates Site: urethral Date In: 12/17/16 Still Needed? Yes NG Tube Site: Orogastric tube in Date In: 12/17/16 Still Needed? Yes IV Drips IV Drips: Ativan drip at 4mg/hr Nutrition Nutrition: tube feeding Current Medications: Current Medications Sig/Damon Start time Last Medication Dose Route Stop Time Status Admin Acetaminophen 1,000 MG Q6P PRN 12/18 2144 AC 12/18 N/A 1 UNIT IV 2144 Acetaminophen 650 MG Q6P PRN 12/16 0015 AC 12/16 PO 2040 Acetaminophen/ 1 TAB Q6P PRN 12/16 0015 AC Hydrocodone Bitart PO Aspirin 81 MG DAILY 12/16 1000 AC 12/20 PO 0823 Atorvastatin Calcium 40 MG 1700 12/16 1700 AC 12/19 PO 1632 Carvedilol 6.25 MG BID 12/18 2200 AC 12/20 PO 0823 Cefazolin Sodium 2,000 MG IQ8 12/20 1600 AC IV Cefazolin Sodium 1,000 MG IQ8 12/18 1600 DC 12/20 IV 0822 Clopidogrel Bisulfate 75 MG DAILY 12/16 1000 AC 12/20 PO 0823 Heparin Sodium 5,000 UNIT Q8 12/19 1400 AC 12/20 (Porcine) SC 0548 Insulin Human Regular 0 Q6 12/18 0626 AC 12/20 SC 0548 Lorazepam 2 MG ONE ONE 12/20 1115 DC 12/20 IV 12/20 1116 1140 Lorazepam 50 MG Q12H 12/18 1400 AC 12/20 Dextrose/Water 500 ML IV 0822 Oxycodone HCl 10 MG Q6P PRN 12/16 0015 AC PO Pantoprazole Sodium 40 MG DAILY 12/18 1000 AC 12/20 IV 0822 Polyethylene Glycol 17 GM DAILY PRN 12/16 1015 AC PO CXR Findings: IMPRESSION: ET tube 6.5 cm above the kim without significant change. Cardiomegaly and pulmonary edema appear stable. Worsening opacity left base, most likely atelectasis. DICTATED BY: SYDNEY CRANE MD DATE/TIME DICTATED:12/20/16718 REPEATER CHIEF:VANESSA DATE/TIME TRANSCRIBED:12/20/16718 Impression/Plan Impression/Problem List Impression: 68-year-old male with past medical history significant for hypertension, hyperlipidemia, peripheral vascular disease, bladder cancer diagnosed over one year ago, oral HSV, CAD with a triple bypass in 1993, who [facility], who presents with chief complaint of lower extremity weakness, fever, chills for 20 after having a vascular procedure at the [facility] a day prior to that. 68-year-old male with past medical history significant for hypertension, hyperlipidemia, peripheral vascular disease, bladder cancer diagnosed over one year ago, oral HSV, CAD with a triple bypass in 1993, who has all his [facility], who presented with chief complaint of lower extremity weakness, fever, chills. He is being managed in the ICU for the following issues: Multiorgan failure syndrome, improving today For the course of his stay in the ICU, his many organ system has been affected. * His respiratory status deteriorated and he was intubated. He seems to be slightly better today, but is still intubated. He has tolerated ventiallation weaning well since a day. * His troponin was persistently elevated, possibly due to severe sepsis, and demand, but NSTEMI is the most likely pathology. His troponin is 10.40 now, down from the peak of 40. * His blood pressure had gone down severely, to the point requiring norepinephrine, but has been stable since 12/18/16 morning. * His kidney functions had deteriorated yesterday to creatinine 2.2, but is better today. His creatinine today is 1.0. * His liver enzymes were elevated too, but is lower today. * His condition has been explained to his , who understands the seriousness of his situation. Respiratory Acute respiratory distress syndrome, better today * Patient is currently intubated, tolerating the ventilation well. Saturation is maintained above 90%, now at PEEP 5 with FiO2 40%. Hope to wean him further tomorrow. He was slightly alkalotic today and his rate was decreased to 16. * Patient is being treated for acute respiratory distress syndrome, can be characterized as having moderate ARDS, getting better * Adequate sedation with Ativan drip running at 4mg/hr * Continuing cefazolin as staph aureus is found to be sensitive to cephalosporin Infectious disease Sepsis, possibly secondary to pneumonia * Continuing cefazolin as staph aureus is found to be sensitive to cephalosporin * Await repeat blood culture set 3 sent today, as set 2 also had GPC positive * Consider CT of the chest if fevers persist * Consider GEORGI if patient continues to deteriorate without possible explanation. Spoke with remediation project engineer Dr Jimenez who said he needs it if he detoriates, else later. * Femoral line on left side was taken out and made sure that he is not bleeding from the site. Cardiovascular system Patient's repeat echo shows ejection fraction of 25% from 45% with wall motion abnormalities that appears to be chronic. His troponin was persistently elevated, possibly due to severe sepsis, and demand, but NSTEMI is the most likely pathology. His troponin is 10.40 today, down from the peak of 40. * Records obtained from [facility] shows that he received lower extremity angiogram, accessed via RIGHT side, with balloon ingioplasty on LEFT superficial femoral artery, and was later sealed via angioseal. Confirmed this detail with the cardiovascular physician Dr Burak Lindsey from [facility] (direct cell number [phone]) this morning. * Check X-ray of the area did not show any radio-opaque foreign body. On palpation, nothing abnormal felt. * No more checking EKG and trending troponins per Dr Jimenez (remediation project engineer). Hematology * Chaning IV heparin drip to SQ heparin TID for DVT ppx only Metabolic Continue to follow chemistries and repeat electrolytes accordingly. IV fluids running. Alimentary * Since he is intubated, he is kept nothing by mouth for now. IV fluids running. Nutrition consult placed for tube feeding. Awaiting their suggestion. Neurology Patient had grossly normal neurological examination yesterday except for anxiety due to his respiratory distress. Since he is on sedation for intubation, will continue to monitor him for adequate sedation. DVT prophylaxis with heparin drip CODE STATUS: Full code Problem List: 1. Sepsis 2. ARDS (adult respiratory distress syndrome) 3. NSTEMI (non-ST elevated myocardial infarction) 4. MODS (multiple organ dysfunction syndrome) 5. PVD (peripheral vascular disease) with claudication 6. CAD (coronary artery disease) Pain Ratin Pain Location: cannot assess Pain Goal: Remain pain free Pain Plan: sedated patient, will go prn when extubated Tomorrow's Labs & Rationales: ICU lab bundle, CXR, CBC to follow tube placement, sepsis, lytes disbalance. Plan DVT/Prophylaxis: pharmacological
--- NOTE | 2016-12-20 13:04 | PN- Cardiology ---
Subjective Subjective: The patient appears somewhat better. He is still intubated and sedated but he is off of pressors and oxygenating well. His chest x-ray looks a little bit better to me. The BUN is down to 46. The troponin is down to 10. Liver enzymes continue to decrease. He now has 5 blood cultures positive for staph aureus. Objective Vital Signs and I&Os Vital Signs Date Time Temp Pulse Resp B/P Pulse O2 O2 Flow FiO2 Ox Delivery Rate 12/20 1145 40 12/20 0825 40 12/20 0823 69 110/60 12/20 0606 40 12/20 0400 95 Ventilator 40% 12/20 0335 40 12/20 0033 40 12/20 0000 96 Ventilator 40% 12/20 0000 97.7 68 20 110/56 96 Ventilator 40% 12/19 2238 40 12/19 2145 71 20 122/58 12/19 2000 95 Ventilator 40% 12/19 1943 40 12/19 1610 40 12/19 1600 95 Ventilator 40% 12/19 1600 97.1 74 20 92/58 95 Ventilator 40% 12/19 1416 40 Intake & Output 12/20 1600 12/20 0800 12/20 0000 12/19 1600 12/19 0800 12/19 0000 Intake Total 362.8 489 600 437 693 Output Total 450 580 450 550 475 Balance -87.2 -91 150 -113 218 Intake, IV 332.8 329 460 437 638 Intake, Oral 0 0 0 Intake, Other 30 160 140 Intake, Tube 55 Irrigant Number 0 0 0 Bowel Movements Output, 50 180 120 230 50 Gastric Drainage Output, Urine 400 400 330 320 425 Patient 152 lb Weight Physical Exam: He is intubated and sedated HEENT exam is grossly normal Chest is aerating bilaterally Heart reveals regular rhythm and no murmurs There is no peripheral edema Current Medications: Current Medications Sig/Damon Start time Last Medication Dose Route Stop Time Status Admin Acetaminophen 1,000 MG Q6P PRN 12/18 2144 AC 12/18 N/A 1 UNIT IV 2143 Acetaminophen 650 MG Q6P PRN 12/16 14 AC 12/16 PO 204 Acetaminophen/ 1 TAB Q6P PRN 12/16 14 AC Hydrocodone Bitart PO Aspirin 81 MG DAILY 12/16 1000 AC 12/20 PO 0823 Atorvastatin Calcium 40 MG 1700 12/16 1700 AC 12/19 PO 1632 Carvedilol 6.25 MG BID 12/18 2200 AC 12/20 PO 0823 Cefazolin Sodium 2,000 MG IQ8 12/20 1600 AC IV Cefazolin Sodium 1,000 MG IQ8 12/18 1600 DC 12/20 IV 0822 Clopidogrel Bisulfate 75 MG DAILY 12/16 1000 AC 12/20 PO 0823 Heparin Sodium 5,000 UNIT Q8 12/19 1400 AC 12/20 (Porcine) SC 0548 Insulin Human Regular 0 Q6 12/18 0626 AC 12/20 SC 1256 Lorazepam 2 MG ONE ONE 12/20 1115 DC 12/20 IV 12/20 1116 1140 Lorazepam 50 MG Q12H 12/18 1400 AC 12/20 Dextrose/Water 500 ML IV 0822 Oxycodone HCl 10 MG Q6P PRN 12/16 0015 AC PO Pantoprazole Sodium 40 MG DAILY 12/18 1000 AC 12/20 IV 0822 Polyethylene Glycol 17 GM DAILY PRN 12/16 1015 AC PO Results Last 48 Hrs of Labs/Mics: Laboratory Tests 12/20/16 0840: pH 7.46 H, pCO2 30 L, pO2 107 H, HCO3 21, ABG O2 Sat (Measured) 97.0, Carboxyhemoglobin 0.3 L, O2 Concentration % 40%, Respiration Rate 20, O2 Delivery Method VENT, Vent Mode AC, Expiratory Pressure 5, Tidal Volume 480, Phlebotomy Draw Site LEFT BRACHIAL 12/20/16 0449: Anion Gap 8, Estimated GFR > 60, Glucose 152 H, Calcium 7.7 L, Phosphorus 2.7, Magnesium 2.4 H, Total Bilirubin 0.6, AST 692 H, ALT 879 H, Troponin I 10.40 *H, Albumin 2.4 L, CBC w Diff NO MAN DIFF REQ, RBC 3.86 L, MCV 89.9, MCH 30.4, RDW 14.2, MPV 10.8 H, Gran % 81.4 H, Lymphocytes % 8.2 L, Monocytes % 10.1 H , Eosinophils % 0.1, Basophils % 0.2, Absolute Granulocytes 7.2 H, Absolute Lymphocytes 0.7 L, Absolute Monocytes 0.9 H, Absolute Eosinophils 0, Absolute Basophils 0, PUBS MCHC 33.8 12/19/16 1110: Troponin I 17.10 *H 12/19/16 1000: APTT 54 H 12/19/16 0555: pH 7.41, pCO2 30 L, pO2 105 H, HCO3 19 L, ABG O2 Sat (Measured) 97.0, P-50 ( Temp Corrected) N, Carboxyhemoglobin 0.1 L, O2 Concentration % .50, Respiration Rate 20, O2 Delivery Method VENT, Vent Mode A/C, Expiratory Pressure 8, Tidal Volume 480, Phlebotomy Draw Site RIGHT RADIAL 12/19/16 0520: Anion Gap 9, Estimated GFR 42 L, Glucose 144 H, Calcium 7.4 L, Phosphorus 3.5 , Magnesium 2.3, Total Bilirubin 0.6, AST 845 H, ALT 1062 H, Albumin 2.3 L, CBC w Diff NO MAN DIFF REQ, RBC 4.02 L, MCV 90.8, MCH 30.5, RDW 13.8, MPV 10.8 H, Gran % 78.2 H, Lymphocytes % 9.8 L, Monocytes % 11.8 H, Eosinophils % 0.1, Basophils % 0.1, Absolute Granulocytes 6.3, Absolute Lymphocytes 0.8 L, Absolute Monocytes 1.0 H, Absolute Eosinophils 0, Absolute Basophils 0, PUBS MCHC 33.6 12/18/16 2200: Troponin I 25.50 *H, APTT 65 H 12/18/16 1655: Troponin I 29.30 *H 12/18/16 1622: Lactic Acid Cancelled 12/18/16 1600: Troponin I Cancelled 12/18/16 1450: Lactic Acid 1.7 Microbiology 12/18 1899 LOWER RESP: Respiratory Culture - COMP YEAST 12/18 1899 LOWER RESP: Gram Stain - COMP Assessment/Plan Assessment/Plan The patient looks a little bit better today. His troponin and liver enzymes are decreasing. He is now off of IV heparin. There have been no arrhythmias. He now has 5 blood cultures positive for staph aureus. At this point we will continue full support. Consideration should be made for a transesophageal echocardiogram because of the persistent positive blood cultures. However I would like to hold off until he is little bit better clinically before performing this. At some point we will probably do another limited transthoracic echo to look at LV function to see if it is is recovering, but again I think we can probably wait a few days to do this. Continue telemetry? Yes
[2016-12-20 16:00] VITALS: BP 138/50
[2016-12-21] VITALS: BP 132/58
--- NOTE | 2016-12-21 00:17 | NUR ---
PATIENT RECEIVED SEDATED WITH ATIVAN DRIP INFUSING AT 3MG/HR, SAS 1, PUPILS 3MM, EQUAL AND REACTIVE, ETT TO VENTILATOR WITH FIO2 OF 35%- CONTINUOUS O2 SAT 95%, BREATHE SOUNDS- UPPER RIGHT MILD RHONCHI, RIGHT BASE CLEAR, UPPER LEFT CLEAR, LEFT BASE DIMINISHED, SKIN PINK, WARM AND DRY, CAPSULE MAKER SINUS WITHOUT ECTOPY- HEART RATE LOW 70'S/MIN, OGT IN PLACE- GASTRIC RESIDUAL CHECK 1ML, ABDOMEN SOFT, +BS, HOB ELEVATED- TOLERATING TF WELL, MCNEILL TO GRAVITY DRAINAGE WITH CLEAR YELLOW UO
[2016-12-21 05:10] LABS: ABSOLUTE BASOPHIL COUNT 0 /CUMM (0.0-0.2); ABSOLUTE EOSINOPHIL COUNT 0 /CUMM (0.0-0.7); ABSOLUTE GRANULOCYTE CT 8.6 /CUMM (1.4-6.5); ABSOLUTE LYMPH COUNT 0.6 /CUMM (1.2-3.4); ABSOLUTE MONOCYTE COUNT 1.1 /CUMM (0.10-0.60); BASOPHIL % 0.1 % (0.0-2.0); EOSINOPHIL % 0.3 % (0-5); GRANULOCYTE % 82.8 % (42.2-75.2); HEMATOCRIT 34.6 % (42-52); MEAN CORPUSCULAR HGB 30.3 PG (27.0-31.0); MEAN CORPUSCULAR HGB CONC 33.6 G/DL (33.0-37.0); MEAN CORPUSCULAR VOLUME 90.2 FL (80.0-94.0); MEAN PLATELET VOLUME 10.5 FL (7.4-10.4); PLATELET COUNT 178 /CUMM (130-400); RBC DISTRIBUTION WIDTH 14.2 % (11.5-14.5); RED BLOOD CELL CT 3.84 /CUMM (4.70-6.10); WHITE BLOOD CELL COUNT 10.4 /CUMM (4.8-10.8)
--- NOTE | 2016-12-21 07:22 | PN- Resident CRCU ---
Subjective HPI/CRCU Issues: Patient is in ICU for ventilatory support after intubation, severe sepsis, multiorgan failure. I followed up and examined the patient today. Vitals have been stable. He is intubated, breathing according to ventilator settings which was gently tapered yesterday and saturating well with normal work of breathing. He hasn't spiked any fever. Objective Vital Signs & I&O Last 8 Hrs of Vitals and I&O: Vital Signs Date Time Temp Pulse Resp B/P Pulse O2 O2 Flow FiO2 Ox Delivery Rate 12/21 1200 92 Ventilator 35% 12/21 1106 35 12/21 0909 35 12/21 0800 95 Ventilator 35% 12/21 08 97.5 67 17 127/57 95 Ventilator 35% Exam General Appearance: well developed/nourished, no apparent distress, comfortable, intubated Other Physical Findings: Head: Normocephalic, atraumatic Eyes: Pupils normal in size, regular, reacting to light Nose: Normal on inspection Neck: Supple, full range of motion, no thyromegaly Heart: regular rhythm Lung: Intubated, minimal crackles heard bilaterally, no wheeze Abd: Soft, non-tender, no distention appreciated Extremities: no change, no swelling, redness Neuro: Normal reflex b/l Skin: Warm and dry Cates Site: urethral Date In: 12/17/16 Still Needed? Yes NG Tube Site: orogastric tube in Date In: 12/17/16 Still Needed? Yes IV Drips IV Drips: Ativan drip at 3 mg/hr Nutrition Nutrition: tube feeding Current Medications: Current Medications Sig/Damon Start time Last Medication Dose Route Stop Time Status Admin Acetaminophen 1,000 MG Q6P PRN 12/18 2144 AC 12/18 N/A 1 UNIT IV 214 Acetaminophen 650 MG Q6P PRN 12/16 0015 AC 12/16 PO 2040 Acetaminophen/ 1 TAB Q6P PRN 12/16 0015 AC Hydrocodone Bitart PO Aspirin 81 MG DAILY 12/16 1000 AC 12/21 PO 0811 Atorvastatin Calcium 40 MG 1700 12/16 1700 AC 12/20 PO 1626 Carvedilol 6.25 MG BID 12/18 2200 12/21 PO 0811 Cefazolin Sodium 2,000 MG IQ8 12/20 1600 12/21 IV 0811 Clopidogrel Bisulfate 75 MG DAILY 12/16 1000 AC 12/21 PO 0811 Heparin Sodium 5,000 UNIT Q8 12/19 1400 AC 12/21 (Porcine) SC 0548 Insulin Aspart 0 Q6 12/20 2003 AC 12/21 SC 1140 Insulin Human Regular 0 TIDAC/HS 12/20 2100 CAN SC Insulin Human Regular 0 Q6 12/18 0626 DC 12/20 SC 1815 Lorazepam 50 MG Q12H 12/18 1400 AC 12/20 Dextrose/Water 500 ML IV 2100 Oxycodone HCl 10 MG Q6P PRN 12/16 0015 AC PO Pantoprazole Sodium 40 MG DAILY 12/18 1000 AC 12/21 IV 0811 Polyethylene Glycol 17 GM DAILY PRN 12/16 1015 AC PO CXR Findings: IMPRESSION: Endotracheal tube terminating 3 cm above the kim. Persistent small left pleural effusion with dense retrocardiac opacity. Hazy right basilar opacity remains. DICTATED BY: MEY DEE,BECKI DATE/TIME DICTATED:12/21/16812 LOG INSPECTOR:VANESSA DATE/TIME TRANSCRIBED:12/21/16812 Impression/Plan Impression/Problem List Impression: 68-year-old male with past medical history significant for hypertension, hyperlipidemia, peripheral vascular disease, bladder cancer diagnosed over one year ago, oral HSV, CAD with a triple bypass in 1993, who [facility], who presents with chief complaint of lower extremity weakness, fever, chills for 20 after having a vascular procedure at the [facility] a day prior to that. 68-year-old male with past medical history significant for hypertension, hyperlipidemia, peripheral vascular disease, bladder cancer diagnosed over one year ago, oral HSV, CAD with a triple bypass in 1993, who has all his [facility], who presented with chief complaint of lower extremity weakness, fever, chills. He is being managed in the ICU for the following issues: Multiorgan failure syndrome, improving today For the course of his stay in the ICU, his many organ system has been affected. * His respiratory status deteriorated and he was intubated. He seems to be slightly better today, but is still intubated. He has tolerated ventiallation weaning well since 2 days. * His troponin was persistently elevated, possibly due to severe sepsis, and demand, but NSTEMI is the most likely pathology. His last troponin was 10.40, down from the peak of 40. * His blood pressure had gone down severely, to the point requiring norepinephrine, but has been stable since 12/18/16 morning. * His kidney functions had deteriorated yesterday to creatinine 2.2, but is better today. His creatinine today is 0.8. * His liver enzymes were elevated too, but is lower today. * His condition has been explained to his /daughter, who understands the seriousness of his situation. Respiratory Acute respiratory distress syndrome, better today * Patient is currently intubated, tolerating the ventilation well. Saturation is maintained above 90%, now at PEEP 5 with FiO2 35%. Hope to wean him further tomorrow. He was slightly alkalotic today and his rate was decreased to 16. * Patient is being treated for acute respiratory distress syndrome, can be characterized as having moderate ARDS, now mild ARDS with p/f ratio 240. * Adequate sedation with Ativan drip running at 3mg/hr, weaning * Continuing cefazolin as Staph aureus is found to be sensitive to cephalosporin Infectious disease Sepsis, possibly secondary to pneumonia * Continuing Cefazolin as Staph aureus is found to be sensitive to cephalosporin * Await repeat blood culture set 3 sent today, as set 2 also had GPC positive * Consider CT of the chest if fevers persist * Consider GEORGI if patient continues to deteriorate without possible explanation. Spoke with plastics sheet finishing press operator Dr Jimenez who said he needs it if he detoriates, else later. * Femoral line on left side was taken out and made sure that he is not bleeding from the site yesterday. Cardiovascular system Patient's repeat echo shows ejection fraction of 25% from 45% with wall motion abnormalities that appears to be chronic. His troponin was persistently elevated, possibly due to severe sepsis, and demand, but NSTEMI is the most likely pathology. His troponin is 10.40 today, down from the peak of 40. * Records obtained from [facility] shows that he received lower extremity angiogram, accessed via RIGHT side, with balloon ingioplasty on LEFT superficial femoral artery, and was later sealed via angioseal. Confirmed this detail with the cardiovascular physician Dr Burak Lindsey from [facility] (direct cell number [phone]) on 12/20/16 morning. * Check X-ray of the area did not show any radio-opaque foreign body. On palpation, nothing abnormal felt. * No more checking EKG and trending troponins per Dr Jimenez (plastics sheet finishing press operator). * Per Cardiology, he needs GEORGI later in coming week, so will await Dr Jimenez's advice about the timing. In the meantime, will continue to wean him off ventillator. Hematology * Chaning IV heparin drip to SQ heparin TID for DVT ppx only Metabolic - Continue to follow chemistries and repeat electrolytes accordingly. IV fluids running. - Insulin NovoLog sliding scale running as the patient has tube feeding and is diabetic. Alimentary * Tube feeding running. with Insulin NovoLog sliding scale. Neurology Patient had grossly normal neurological examination yesterday except for anxiety due to his respiratory distress. Since he is on sedation for intubation, will continue to monitor him for adequate sedation. DVT prophylaxis with heparin drip CODE STATUS: Full code Problem List: 1. Sepsis 2. ARDS (adult respiratory distress syndrome) 3. NSTEMI (non-ST elevated myocardial infarction) 4. MODS (multiple organ dysfunction syndrome) 5. PVD (peripheral vascular disease) with claudication 6. CAD (coronary artery disease) Pain Ratin Pain Location: cannot assess Pain Goal: Remain pain free Pain Plan: sedated patient, will go prn when extubated Tomorrow's Labs & Rationales: ICU lab bundle, CXR, CBC to follow tube placement, sepsis, lytes disbalance. Plan DVT/Prophylaxis: pharmacological
--- NOTE | 2016-12-21 07:48 | NUR ---
CLOSE OBSERVATION MAINTAINED, VS STABLE, TEMPERATURE 100.4 RECTALLY THIS AM, TOLERATING TF WELL, REMAINS SEDATED, AWAITING AM MD ROUNDS
[2016-12-21 08:00] VITALS: BP 127/57
--- NOTE | 2016-12-21 08:19 | RADIOLOGY REPORT ---
EXAMINATION: XR PORTABLE CHEST CLINICAL INFORMATION: Intubated. Endotracheal tube placement. COMPARISON: 12/20/2016 TECHNIQUE: Portable AP view of the chest was obtained. FINDINGS: The endotracheal tube terminates 3 cm above the kim. Median sternotomy wires appear intact. Enteric tube courses below the diaphragm. Low lung volumes. Small left pleural effusion. Retrocardiac opacity remains. Hazy right basilar opacity. No pneumothorax. The cardiomediastinal silhouette is unchanged, with a calcified aorta. IMPRESSION: Endotracheal tube terminating 3 cm above the kim. Persistent small left pleural effusion with dense retrocardiac opacity. Hazy right basilar opacity remains.
--- NOTE | 2016-12-21 09:30 | PN- CRCU ---
Subjective HPI/Critical Care Issues: pt seen and examined chemistry studies are improved fio2 35% sedated still ROS unobtainable ativan at 3mg/hr 1L positive Objective Current Medications: Current Medications Sig/Damon Start time Last Medication Dose Route Stop Time Status Admin Acetaminophen 1,000 MG Q6P PRN 12/18 2145 AC 12/18 N/A 1 UNIT IV 2144 Acetaminophen 650 MG Q6P PRN 12/16 0015 AC 12/16 PO 2040 Acetaminophen/ 1 TAB Q6P PRN 12/16 0015 AC Hydrocodone Bitart PO Aspirin 81 MG DAILY 12/16 1000 AC 12/21 PO 0811 Atorvastatin Calcium 40 MG 1700 12/16 1700 AC 12/20 PO 1626 Carvedilol 6.25 MG BID 12/18 2200 AC 12/21 PO 0811 Cefazolin Sodium 2,000 MG IQ8 12/20 1600 AC 12/21 IV 0811 Cefazolin Sodium 1,000 MG IQ8 12/18 1600 DC 12/20 IV 0822 Clopidogrel Bisulfate 75 MG DAILY 12/16 1000 AC 12/21 PO 0811 Heparin Sodium 5,000 UNIT Q8 12/19 1400 AC 12/21 (Porcine) SC 0548 Insulin Aspart 0 Q6 12/20 2003 AC 12/21 SC 0550 Insulin Human Regular 0 TIDAC/HS 12/20 2100 CAN SC Insulin Human Regular 0 Q6 12/18 0626 DC 12/20 SC 1815 Lorazepam 2 MG ONE ONE 12/20 1115 DC 12/20 IV 12/20 1116 1140 Lorazepam 50 MG Q12H 12/18 1400 AC 12/20 Dextrose/Water 500 ML IV 2100 Oxycodone HCl 10 MG Q6P PRN 12/16 0015 AC PO Pantoprazole Sodium 40 MG DAILY 12/18 1000 AC 12/21 IV 0811 Polyethylene Glycol 17 GM DAILY PRN 12/16 1015 AC PO Vital Signs & I&O Last 24 Hrs of Vitals and I&O: Vital Signs Date Time Temp Pulse Resp B/P Pulse O2 O2 Flow FiO2 Ox Delivery Rate 12/21 0909 35 12/21 0800 95 Ventilator 35% 12/21 0800 97.5 67 17 127/57 95 Ventilator 35% 12/21 0529 35 12/21 0400 95 Ventilator 35% 12/21 0046 35 12/21 0000 95 Ventilator 35% 12/21 0000 97.8 72 22 132/58 95 Ventilator 35% 12/20 2234 35 12/20 2143 76 21 133/59 12/20 1999 93 Ventilator 35% 12/20 1900 35 12/20 1635 40 12/20 1600 98.7 72 20 138/50 96 Ventilator 40% 12/20 1600 96 Ventilator 40% 12/20 1410 40 12/20 1200 95 Ventilator 40% 12/20 1145 40 Intake & Output 12/21 1600 12/21 0800 12/21 0000 Intake Total 512 525.9 Output Total 460 350 Balance 52 175.9 Intake, IV 226 205.9 Intake, Oral 0 Intake, Other 210 Intake, Tube 266 110 Feeding Intake, Tube 20 Irrigant Number 1 0 Bowel Movements Output, Urine 460 350 Exam Other Physical Findings: gen sedated, intubated heent ett cvs s1, s2 lungs transmitted abd soft, bs+ ext no edema Results Last 24 Hrs of Lab Results: Laboratory Tests 12/21/16 0920: pH 7.44, pCO2 35, pO2 84, HCO3 24, ABG O2 Sat (Measured) 96.0, P-50 (Temp Corrected) YES, Carboxyhemoglobin 0.4 L, O2 Concentration % 35%, Temperature 97.5, Respiration Rate 16, O2 Delivery Method VENT, Vent Mode AC, Expiratory Pressure 5, Tidal Volume 480, Phlebotomy Draw Site RIGHT RADIAL 12/21/16 0430: Anion Gap 7, Estimated GFR > 60, Glucose 173 H, Calcium 7.8 L, Phosphorus 3.3, Magnesium 2.3, Total Bilirubin 0.5, AST 650 H, ALT 748 H, Albumin 2.4 L, CBC w Diff NO MAN DIFF REQ, RBC 3.84 L, MCV 90.2, MCH 30.3, RDW 14.2, MPV 10.5 H, Gran % 82.8 H, Lymphocytes % 6.2 L, Monocytes % 10.6 H, Eosinophils % 0.3, Basophils % 0.1, Absolute Granulocytes 8.6 H, Absolute Lymphocytes 0.6 L, Absolute Monocytes 1.1 H, Absolute Eosinophils 0, Absolute Basophils 0, PUBS MCHC 33.6 Impression/Plan Impression/Plan Impression/Plan: Impression 76 year old man -resolving ARDS, now mild, p/f ratio is 240 -nstemi, systolic heart failure -staph aureus bacteremia -IMPROVING multi-organ dysfunction syndrome - MODS Plan Respiratory -continue low tidal volume ventilation per ARDSnet protocol -PEEP as needed -goal spo2 88-92% -depending on GEORGI plan, will attempt to liberate from ventilator, initially reducing sedation, will taper ativan and reassess ID -ID appreciated -Cefazolin for S. Aureus sensitive to Oxacillin -GEORGI recommended will d/w cardiology CVS -f/u cardiology recommendations -EF worsened, limited per cardiology Heme -montior h/h, coags Metabolic -ins/outs -monitor electrolytes Alimentary -tube feeds Neuro -sedation to comfort, will taper DVT prophylaxis at all times TTS 40 min
--- NOTE | 2016-12-21 11:02 | PN- Infect Dx ---
Subjective Subjective: MAXIMUM TEMPERATURE 100.6. One small liquid stool reported this morning. Objective Last 24 Hrs of Vital Signs/I&O Vital Signs Date Time Temp Pulse Resp B/P Pulse O2 O2 Flow FiO2 Ox Delivery Rate 12/21 0909 35 12/21 0800 95 Ventilator 35% 12/21 0800 97.5 67 17 127/57 95 Ventilator 35% 12/21 0529 35 12/21 0400 95 Ventilator 35% 12/21 0046 35 12/21 0000 95 Ventilator 35% 12/21 0000 97.8 72 22 132/58 95 Ventilator 35% 12/20 2234 35 12/20 2143 76 21 133/59 12/20 2000 93 Ventilator 35% 12/20 1900 35 12/20 1635 40 12/20 1600 98.7 72 20 138/50 96 Ventilator 40% 12/20 1600 96 Ventilator 40% 12/20 1410 40 12/20 1200 95 Ventilator 40% 12/20 1145 40 Intake & Output 12/21 1600 12/21 0800 12/21 0000 Intake Total 512 525.9 Output Total 460 350 Balance 52 175.9 Intake, IV 226 205.9 Intake, Oral 0 Intake, Other 210 Intake, Tube 266 110 Feeding Intake, Tube 20 Irrigant Number 1 0 Bowel Movements Output, Urine 460 350 Physical Exam Other Physical Findings: He remains sedated on the ventilator Lungs scattered rhonchi bilaterally Heart regular rhythm with no murmur Abdomen is soft, with positive bowel sounds Extremities no cyanosis, clubbing or edema Actes catheter remains in place Results Last 24 Hours of Lab Results: Laboratory Tests 12/21 12/21 0920 0430 Blood Gas pH (7.35 - 7.45 PH) 7.44 pCO2 (35 - 45 TORR) 35 pO2 (80 - 100 TORR) 84 HCO3 (21 - 28 MEQ/L) 24 ABG O2 Sat (Measured) (>96.0 %) 96.0 P-50 (Temp Corrected) YES Carboxyhemoglobin (1.5 - 5.0 %) 0.4 L O2 Concentration % 35% Temperature (97.0 - 100.0 FARH) 97.5 Respiration Rate (BPM) 16 O2 Delivery Method VENT Vent Mode AC Expiratory Pressure (CMH2O/P) 5 Tidal Volume (CC) 480 Chemistry Sodium (137 - 145 mmol/L) 145 Potassium (3.5 - 5.1 mmol/L) 4.3 Chloride (98 - 107 mmol/L) 111 H Carbon Dioxide (22 - 30 mmol/L) 27 Anion Gap (5 - 16) 7 BUN (9 - 20 mg/dL) 31 H Creatinine (0.7 - 1.2 mg/dL) 0.8 Estimated GFR (>60 ml/min) > 60 Glucose (65 - 99 mg/dL) 173 H Calcium (8.4 - 10.2 mg/dL) 7.8 L Phosphorus (2.5 - 4.5 mg/dL) 3.3 Magnesium (1.6 - 2.3 mg/dL) 2.3 Total Bilirubin (0.2 - 1.3 mg/dL) 0.5 AST (17 - 59 U/L) 650 H ALT (21 - 72 U/L) 748 H Albumin (3.5 - 5.0 g/dL) 2.4 L Hematology CBC w Diff NO MAN DIFF REQ WBC (4.8 - 10.8 /CUMM) 10.4 RBC (4.70 - 6.10 /CUMM) 3.84 L Hgb (14.0 - 18.0 G/DL) 11.6 L Hct (42 - 52 %) 34.6 L MCV (80.0 - 94.0 FL) 90.2 MCH (27.0 - 31.0 PG) 30.3 RDW (11.5 - 14.5 %) 14.2 Plt Count (130 - 400 /CUMM) 178 MPV (7.4 - 10.4 FL) 10.5 H Gran % (42.2 - 75.2 %) 82.8 H Lymphocytes % (20.5 - 51.1 %) 6.2 L Monocytes % (1.7 - 9.3 %) 10.6 H Eosinophils % (0 - 5 %) 0.3 Basophils % (0.0 - 2.0 %) 0.1 Absolute Granulocytes (1.4 - 6.5 /CUMM) 8.6 H Absolute Lymphocytes (1.2 - 3.4 /CUMM) 0.6 L Absolute Monocytes (0.10 - 0.60 /CUMM) 1.1 H Absolute Eosinophils (0.0 - 0.7 /CUMM) 0 Absolute Basophils (0.0 - 0.2 /CUMM) 0 PUBS MCHC (33.0 - 37.0 G/DL) 33.6 Miscellaneous Phlebotomy Draw Site RIGHT RADIAL Last 24 Hours of Evens Results: Blood cultures December 20 negative so far Blood culture December 18 positive for Staph aureus Sputum culture December 18 scant growth of yeast Recent Imaging Studies: Chest x-ray December 21, personally reviewed, reveals bibasilar opacities Assessment/Plan Impression: Staph aureus sepsis presumably secondary to pneumonia on Cefazolin now Day 6 of treatment with low-grade fever overnight but with white blood cell count remaining normal. His most recent blood cultures remain negative, but feel that a GEORGI will be helpful in determining the optimal duration of his therapy. A loose stool was reported this morning and, with his low-grade fever, C. difficile should be ruled out. Apparently his recent procedure at the [facility] did not involve any femoral sheath but only Angio-Seal; therefore no further imaging was felt to be necessary. His renal function continues to improve and his troponin has also decreased. Suggestion: 1. Stool for C. difficile if he has recurrent diarrhea 2. Would pursue eventual GEORGI per Cardiology 3. Continue Cefazolin
--- NOTE | 2016-12-21 11:24 | PN- Cardiology ---
Subjective Subjective: The patient remains intubated and sedated. No obvious new cardiovascular issues. History unobtainable. Objective Vital Signs and I&Os Vital Signs Date Time Temp Pulse Resp B/P Pulse O2 O2 Flow FiO2 Ox Delivery Rate 12/21 1106 35 12/21 0909 35 12/21 0800 95 Ventilator 35% 12/21 0800 97.5 67 17 127/57 95 Ventilator 35% 12/21 0529 35 12/21 0400 95 Ventilator 35% 12/21 0046 35 12/21 0000 95 Ventilator 35% 12/21 0000 97.8 72 22 132/58 95 Ventilator 35% 12/20 2234 35 12/20 2143 76 21 133/59 12/20 2000 93 Ventilator 35% 12/20 1900 35 12/20 1635 40 12/20 1600 98.7 72 20 138/50 96 Ventilator 40% 12/20 1600 96 Ventilator 40% 12/20 1410 40 12/20 1200 95 Ventilator 40% 12/20 1145 40 Intake & Output 12/21 1600 12/21 0800 12/21 0000 12/20 1600 12/20 0800 12/20 0000 Intake Total 512 525.9 883 362.8 489 Output Total 460 350 375 450 580 Balance 52 175.9 508 -87.2 -91 Intake, IV 226 205.9 528 332.8 329 Intake, Oral 0 0 0 Intake, Other 210 280 30 160 Intake, Tube 266 110 75 Feeding Intake, Tube 20 Irrigant Number 1 0 1 0 0 Bowel Movements Output, 0 50 180 Gastric Drainage Output, Urine 460 350 375 400 400 Physical Exam: Gen.: Well-developed white male, sedated, intubated HEENT: Normal Neck: JVP normal, carotid up strokes normal bilaterally Chest: Bilateral rhonchi Heart: S1, S2, 1/6 systolic murmur Abdomen: Normal Extremity: no significant edema Current Medications: Current Medications Sig/Damon Start time Last Medication Dose Route Stop Time Status Admin Acetaminophen 1,000 MG Q6P PRN 12/18 2144 AC 12/18 N/A 1 UNIT IV 2143 Acetaminophen 650 MG Q6P PRN 12/165 AC 12/16 PO 2039 Acetaminophen/ 1 TAB Q6P PRN 12/16 14 AC Hydrocodone Bitart PO Aspirin 81 MG DAILY 12/16 1000 AC 12/21 PO 0811 Atorvastatin Calcium 40 MG 1700 12/16 1700 AC 12/20 PO 1626 Carvedilol 6.25 MG BID 12/18 2200 AC 12/21 PO 0811 Cefazolin Sodium 2,000 MG IQ8 12/20 1600 AC 12/21 IV 0811 Cefazolin Sodium 1,000 MG IQ8 12/18 1600 DC 12/20 IV 0822 Clopidogrel Bisulfate 75 MG DAILY 12/16 1000 AC 12/21 PO 0811 Heparin Sodium 5,000 UNIT Q8 12/19 1400 AC 12/21 (Porcine) SC 0548 Insulin Aspart 0 Q6 12/20 2003 AC 12/21 SC 0550 Insulin Human Regular 0 TIDAC/HS 12/20 2100 CAN SC Insulin Human Regular 0 Q6 12/18 0626 DC 12/20 SC 1815 Lorazepam 2 MG ONE ONE 12/20 1115 DC 12/20 IV 12/20 1116 1140 Lorazepam 50 MG Q12H 12/18 1400 AC 12/20 Dextrose/Water 500 ML IV 2100 Oxycodone HCl 10 MG Q6P PRN 12/16 0015 AC PO Pantoprazole Sodium 40 MG DAILY 12/18 1000 AC 12/21 IV 0811 Polyethylene Glycol 17 GM DAILY PRN 12/16 1015 AC PO Results Last 48 Hrs of Labs/Mics: Laboratory Tests 12/21/16 0920: pH 7.44, pCO2 35, pO2 84, HCO3 24, ABG O2 Sat (Measured) 96.0, P-50 (Temp Corrected) YES, Carboxyhemoglobin 0.4 L, O2 Concentration % 35%, Temperature 97.5, Respiration Rate 16, O2 Delivery Method VENT, Vent Mode AC, Expiratory Pressure 5, Tidal Volume 480, Phlebotomy Draw Site RIGHT RADIAL 12/21/16 0430: Anion Gap 7, Estimated GFR > 60, Glucose 173 H, Calcium 7.8 L, Phosphorus 3.3, Magnesium 2.3, Total Bilirubin 0.5, AST 650 H, ALT 748 H, Albumin 2.4 L, CBC w Diff NO MAN DIFF REQ, RBC 3.84 L, MCV 90.2, MCH 30.3, RDW 14.2, MPV 10.5 H, Gran % 82.8 H, Lymphocytes % 6.2 L, Monocytes % 10.6 H, Eosinophils % 0.3, Basophils % 0.1, Absolute Granulocytes 8.6 H, Absolute Lymphocytes 0.6 L, Absolute Monocytes 1.1 H, Absolute Eosinophils 0, Absolute Basophils 0, PUBS MCHC 33.6 12/20/16 0840: pH 7.46 H, pCO2 30 L, pO2 107 H, HCO3 21, ABG O2 Sat (Measured) 97.0, Carboxyhemoglobin 0.3 L, O2 Concentration % 40%, Respiration Rate 20, O2 Delivery Method VENT, Vent Mode AC, Expiratory Pressure 5, Tidal Volume 480, Phlebotomy Draw Site LEFT BRACHIAL 12/20/16 0449: Anion Gap 8, Estimated GFR > 60, Glucose 152 H, Calcium 7.7 L, Phosphorus 2.7, Magnesium 2.4 H, Total Bilirubin 0.6, AST 692 H, ALT 879 H, Troponin I 10.40 *H, Albumin 2.4 L, CBC w Diff NO MAN DIFF REQ, RBC 3.86 L, MCV 89.9, MCH 30.4, RDW 14.2, MPV 10.8 H, Gran % 81.4 H, Lymphocytes % 8.2 L, Monocytes % 10.1 H , Eosinophils % 0.1, Basophils % 0.2, Absolute Granulocytes 7.2 H, Absolute Lymphocytes 0.7 L, Absolute Monocytes 0.9 H, Absolute Eosinophils 0, Absolute Basophils 0, PUBS MCHC 33.8 Assessment/Plan Assessment/Plan Assessment: 1. Sepsis with persistent positive blood cultures 2. Non-ST elevation myocardial infarction 3. ARDS 4. Multiple organ dysfunction syndrome 5. History of peripheral vascular disease 6. Ischemic cardiomyopathy Recommendations: -Continue all supportive care as per the critical care team -As per Dr. Jimenez, the patient will require a GEORGI at some point during this coming week. -Dr. Jimenez will decide upon the timing of the GEORGI Continue telemetry? Yes
[2016-12-21 16:00] VITALS: BP 129/60
[2016-12-22 05:11] LABS: ABSOLUTE BASOPHIL COUNT 0 /CUMM (0.0-0.2); ABSOLUTE EOSINOPHIL COUNT 0.1 /CUMM (0.0-0.7); ABSOLUTE GRANULOCYTE CT 8.8 /CUMM (1.4-6.5); ABSOLUTE LYMPH COUNT 0.6 /CUMM (1.2-3.4); ABSOLUTE MONOCYTE COUNT 1.1 /CUMM (0.10-0.60); BASOPHIL % 0.3 % (0.0-2.0); EOSINOPHIL % 0.8 % (0-5); GRANULOCYTE % 82.6 % (42.2-75.2); HEMATOCRIT 32.3 % (42-52); MEAN CORPUSCULAR HGB 30.7 PG (27.0-31.0); MEAN CORPUSCULAR HGB CONC 33.7 G/DL (33.0-37.0); MEAN CORPUSCULAR VOLUME 90.9 FL (80.0-94.0); MEAN PLATELET VOLUME 10.2 FL (7.4-10.4); PLATELET COUNT 192 /CUMM (130-400); RBC DISTRIBUTION WIDTH 14.3 % (11.5-14.5); RED BLOOD CELL CT 3.56 /CUMM (4.70-6.10); WHITE BLOOD CELL COUNT 10.7 /CUMM (4.8-10.8)
--- NOTE | 2016-12-22 07:33 | RADIOLOGY REPORT ---
EXAMINATION: XR PORTABLE CHEST CLINICAL INFORMATION: Intubation. COMPARISON: Chest 12/21/2016. TECHNIQUE: Portable AP erect 90 degree view of the chest was obtained. FINDINGS: Tip of endotracheal tube is 3.4 cm above the kim. A nasogastric tube tip is in stomach. There is persistent haziness in left lung base from effusion and/or underlying atelectasis. Minimal right basilar opacity is seen. Rest of lungs are clear and well-expanded. No gross bony abnormality seen. IMPRESSION: Satisfactory position of endotracheal tube and nasogastric tube. Persistent haziness in the left lung base probably from effusion and underlying atelectasis. Minimal right basilar opacities noted.
[2016-12-22 08:00] VITALS: BP 136/56
--- NOTE | 2016-12-22 08:58 | PN- CRCU ---
Subjective HPI/Critical Care Issues: pt seen and examined afebrile fio2 35% 1.6L positive ativan at 1/hr Objective Current Medications: Current Medications Sig/Damon Start time Last Medication Dose Route Stop Time Status Admin Acetaminophen 1,000 MG Q6P PRN 12/18 2145 AC 12/18 N/A 1 UNIT IV 2144 Acetaminophen 650 MG Q6P PRN 12/16 0015 AC 12/16 PO 2040 Acetaminophen/ 1 TAB Q6P PRN 12/16 0015 AC Hydrocodone Bitart PO Aspirin 81 MG DAILY 12/16 1000 AC 12/22 PO 0933 Atorvastatin Calcium 40 MG 1700 12/16 1700 AC 12/21 PO 1626 Carvedilol 6.25 MG BID 12/18 2200 AC 12/22 PO 0933 Cefazolin Sodium 2 GM IQ8 12/22 0000 AC 12/22 N/A 1 UNIT IV 0823 Cefazolin Sodium 2,000 MG IQ8 12/20 1600 DC 12/22 IV 0035 Clopidogrel Bisulfate 75 MG DAILY 12/16 1000 AC 12/22 PO 0933 Heparin Sodium 5,000 UNIT Q8 12/19 1400 AC 12/22 (Porcine) SC 0627 Insulin Aspart 0 Q6 12/20 2002 AC 12/22 SC 0627 Lorazepam 50 MG Q12H 12/18 1400 AC 12/22 Dextrose/Water 500 ML IV 0104 Oxycodone HCl 10 MG Q6P PRN 12/16 0015 AC PO Pantoprazole Sodium 40 MG DAILY 12/18 1000 AC 12/22 IV 0933 Polyethylene Glycol 17 GM DAILY PRN 12/16 1015 AC PO Vital Signs & I&O Last 24 Hrs of Vitals and I&O: Vital Signs Date Time Temp Pulse Resp B/P Pulse O2 O2 Flow FiO2 Ox Delivery Rate 12/22 0830 35 12/22 0618 35 12/22 0400 94 Ventilator 35% 12/22 0258 35 12/22 0037 35 12/22 0000 93 Ventilator 35% 12/21 2200 35 12/21 2152 74 132/60 12/21 2000 94 Ventilator 35% 12/21 1917 35 12/21 1634 35 12/21 1600 97 Ventilator 35% 12/21 1600 97.0 69 17 129/60 95 Ventilator 35% 12/21 1411 35 12/21 1200 92 Ventilator 35% 12/21 1106 35 12/21 0909 35 Intake & Output 12/22 1600 12/22 0800 12/22 0000 Intake Total 715 1020 Output Total 400 400 Balance 315 620 Intake, IV 56 120 Intake, Tube 439 560 Feeding Intake, Tube 220 340 Irrigant Number 1 Bowel Movements Output, Urine 400 400 Exam Other Physical Findings: gen sedated, intubated heent ett cvs s1, s2 lungs transmitted abd soft, bs+ ext no edema Results Last 24 Hrs of Lab Results: Laboratory Tests 12/22/16 0450: Anion Gap 7, Estimated GFR > 60, Glucose 226 H, Calcium 7.9 L, Phosphorus 3.3, Magnesium 2.1, Total Bilirubin 0.4, AST 312 H, ALT 471 H, Albumin 2.3 L, CBC w Diff NO MAN DIFF REQ, RBC 3.56 L, MCV 90.9, MCH 30.7, RDW 14.3, MPV 10.2, Gran % 82.6 H, Lymphocytes % 6.1 L, Monocytes % 10.2 H, Eosinophils % 0.8, Basophils % 0.3, Absolute Granulocytes 8.8 H, Absolute Lymphocytes 0.6 L, Absolute Monocytes 1.1 H, Absolute Eosinophils 0.1, Absolute Basophils 0, PUBS MCHC 33.7 12/21/16 0920: pH 7.44, pCO2 35, pO2 84, HCO3 24, ABG O2 Sat (Measured) 96.0, P-50 (Temp Corrected) YES, Carboxyhemoglobin 0.4 L, O2 Concentration % 35%, Temperature 97.5, Respiration Rate 16, O2 Delivery Method VENT, Vent Mode AC, Expiratory Pressure 5, Tidal Volume 480, Phlebotomy Draw Site RIGHT RADIAL Impression/Plan Impression/Plan Impression/Plan: Impression 76 year old man -resolving ARDS, now mild, p/f ratio is 240 -nstemi, systolic heart failure -staph aureus bacteremia -IMPROVING multi-organ dysfunction syndrome - MODS Plan Respiratory -continue low tidal volume ventilation per ARDSnet protocol -PEEP at 5 -goal spo2 88-92% -depending on GEORGI plan, will attempt to liberate from ventilator, initially reducing sedation, will taper ativan and reassess ID -ID appreciated -Cefazolin for S. Aureus sensitive to Oxacillin -GEORGI recommended will d/w cardiology CVS -f/u cardiology recommendations -EF worsened, limited per cardiology Heme -montior h/h, coags Metabolic -ins/outs -monitor electrolytes Alimentary -tube feeds Neuro -sedation to comfort, will taper -d/c ativan, if not arousable will need CT head DVT prophylaxis at all times TTS 35 min
--- NOTE | 2016-12-22 10:24 | NUR ---
AT 0800 REC'D THE PT ORALLY INTUBATED AND MECHANICALLY VENTILATED PER MD ORDER. PT'S TL BS ARE CLEAR BUT DIMINISHED AT THE BASES WITH AN O2 SAT OF 95%. PT IS ON AN AC OF 16 BUT RR IS 20-24. PT IS NO LONGER ON SEDATION BUT REMAINS UNRESPONSIVE EVEN TO PAINFUL STIMULI. NO SPONTANEOUS MOVEMENT OF EXTREMITIES NOTED. PUPILS ARE A 3MM AND REACTIVE. PT IS IN A NSR WITHOUT ECTOPY PER THE [employer] ASSEMBLER. NO EDEMA NOTED. ABD IS SOFT WITH NORMOACTIVE BOWEL SOUNDS. GLUCERNA 1.2 INFUSING AT 70ML/HR- NO RESIDUAL NOTED. 110ML H20 FLUSHES Q4H ORDERED. INCONTINENT OF MODERATE AMT OF SOFT BROWN STOOL. PERICARE PERFORMED AT 0845 AND THE PT WAS TURNED TO THE R SIDE. R BUTTOCK REDDENED BUT BLANCHABLE. REMAINS ON SIZEWISE MATTRESS. MCNEILL IN PLACE DRAINING DK YELLOW URINE. DRESSINGS TO AND RF IV'S CHANGED.
--- NOTE | 2016-12-22 10:37 | PN- Resident CRCU ---
Subjective HPI/CRCU Issues: Patient is in ICU for ventilatory support after intubation, severe sepsis, multiorgan failure. I followed up and examined the patient today. Vitals have been stable. He is intubated, breathing according to ventilator settings which was gently tapered yesterday and saturating well with normal work of breathing. He is on Ativan 1mg drip. He was still not awake. He is unarousable. He hasn't spiked any fever. Objective Vital Signs & I&O Last 8 Hrs of Vitals and I&O: Vital Signs Date Time Temp Pulse Resp B/P Pulse O2 O2 Flow FiO2 Ox Delivery Rate 12/22 1944 35 12/22 1653 35 12/22 1600 95 Ventilator 35% 12/22 1600 98.7 74 22 122/74 95 Ventilator 35% 12/22 1443 35 12/22 1303 35 Intake & Output 12/22 1600 Intake Total 905 Output Total 301 Balance 604 Intake, IV 90 Intake, Other 300 Intake, Tube 515 Feeding Output, Stool 1 Output, Urine 300 Exam General Appearance: well developed/nourished, no apparent distress, comfortable, sedated, intubated Other Physical Findings: Head: Normocephalic, atraumatic Eyes: Pupils normal in size, regular, reacting to light Nose: Normal on inspection Neck: Supple, full range of motion, no thyromegaly Heart: regular rhythm Lung: Intubated, minimal crackles heard bilaterally, no wheeze Abd: Soft, non-tender, no distention appreciated Extremities: no change, no swelling, redness Neuro: Normal reflex b/l Skin: Warm and dry Cates Site: urethral Date In: 12/17/16 Still Needed? Yes NG Tube Site: orogastric tube in Date In: 12/17/16 Still Needed? Yes IV Drips IV Drips: Ativan drip at 1mg/hr Nutrition Nutrition: tube feeding Current Medications: Current Medications Sig/Damon Start time Last Medication Dose Route Stop Time Status Admin Acetaminophen 1,000 MG Q6P PRN 12/18 2144 AC 12/18 N/A 1 UNIT IV 2143 Acetaminophen 650 MG Q6P PRN 12/165 AC 12/16 PO 2040 Acetaminophen/ 1 TAB Q6P PRN 12/165 AC Hydrocodone Bitart PO Aspirin 81 MG DAILY 12/16 1000 AC 12/22 PO 0933 Atorvastatin Calcium 40 MG 1700 12/16 1700 AC 12/22 PO 1700 Carvedilol 6.25 MG BID 12/18 2200 AC 12/22 PO 0933 Cefazolin Sodium 2 GM IQ8 12/22 0000 AC 12/22 N/A 1 UNIT IV 1700 Cefazolin Sodium 2,000 MG IQ8 12/20 1600 DC 12/22 IV 0035 Clopidogrel Bisulfate 75 MG DAILY 12/16 1000 AC 12/22 PO 0933 Heparin Sodium 5,000 UNIT Q8 12/19 1400 AC 12/22 (Porcine) SC 1519 Insulin Aspart 0 Q6 12/20 2003 AC 12/22 SC 1806 Lorazepam 50 MG Q12H 12/18 1400 AC 12/22 Dextrose/Water 500 ML IV 0104 Oxycodone HCl 10 MG Q6P PRN 12/16 0015 AC PO Pantoprazole Sodium 40 MG DAILY 12/18 1000 AC 12/22 IV 0933 Polyethylene Glycol 17 GM DAILY PRN 12/16 1015 AC PO CXR Findings: IMPRESSION: Satisfactory position of endotracheal tube and nasogastric tube. Persistent haziness in the left lung base probably from effusion and underlying atelectasis. Minimal right basilar opacities noted. DICTATED BY: TIERRA DEE,ARLEEN DATE/TIME DICTATED:12/22/16726 REST ROOM ATTENDANT:VANESSA DATE/TIME TRANSCRIBED:12/22/16726 CT Scan Findings: CT head: IMPRESSION: 1. Unchanged appearance of the head with no acute intracranial findings. 2. Chronic small left basal ganglia lacunar infarction and diffuse periventricular deep white matter ischemic small vessel disease again noted. DICTATED BY: STEVEN DEE,EKTA Lang DATE/TIME DICTATED:12/22/161142 REST ROOM ATTENDANT:EMANUEL DATE/TIME TRANSCRIBED:12/22/161142 CT Chest: IMPRESSION: 1. Moderate size bilateral simple-appearing pleural effusions are seen with associated volume loss and consolidation in both lower lobes, left greater than right. Findings are consistent with multi lobar pneumonia. 2. Bandlike area of dependent atelectasis seen in the left upper lobe, paralleling the major fissure. 3. Moderate emphysema. 4. Endotracheal tube tip 4 cm above the kim. Enteric tube extends into the stomach with tip not included. 5. Severe atherosclerotic vascular disease, including coronary artery disease. DICTATED BY: EKTA HARRIS MD DATE/TIME DICTATED:12/22/161200 REST ROOM ATTENDANT:VANESSA DATE/TIME TRANSCRIBED:12/22/161200 Impression/Plan Impression/Problem List Impression: 68-year-old male with past medical history significant for hypertension, hyperlipidemia, peripheral vascular disease, bladder cancer diagnosed over one year ago, oral HSV, CAD with a triple bypass in 1993, who has all his routine medical care at the [facility], who presents with chief complaint of lower extremity weakness, fever, chills for 20 after having a vascular procedure at the [facility] a day prior to that. 68-year-old male with past medical history significant for hypertension, hyperlipidemia, peripheral vascular disease, bladder cancer diagnosed over one year ago, oral HSV, CAD with a triple bypass in 1993, who has all his routine medical care at the [facility], who presented with chief complaint of lower extremity weakness, fever, chills. He is being managed in the ICU for the following issues: Multiorgan failure syndrome, improving today For the course of his stay in the ICU, his many organ system has been affected. * His respiratory status deteriorated and he was intubated. He seems to be slightly better today, but is still intubated. He has tolerated ventiallation weaning well since 2 days. * His troponin was persistently elevated, possibly due to severe sepsis, and demand, but NSTEMI is the most likely pathology. His last troponin was 10.40, down from the peak of 40. * His blood pressure had gone down severely, to the point requiring norepinephrine, but has been stable since 12/18/16 morning. * His kidney functions had deteriorated to creatinine 2.2, but is better today at 0.6. * His liver enzymes were elevated too, but is lower today. AST/ALT 312/471. Total bili- 0.4 today. * His condition updated to his /daughter, who understand the seriousness of his situation. Respiratory Acute respiratory distress syndrome, better today * Patient is currently intubated, tolerating the ventilation well. Saturation is maintained above 90%, now at PEEP 5 with FiO2 35%. Hope to wean him further today. * Patient is being treated for acute respiratory distress syndrome, can be characterized as having moderate ARDS, now mild ARDS * Adequate sedation with Ativan drip running at 1mg/hr. Discontinued it today. Will watch for him to awake. * Continuing Cefazolin as Staph aureus is found to be sensitive to cephalosporin Infectious disease Sepsis, possibly secondary to pneumonia * Continuing Cefazolin as Staph aureus is found to be sensitive to cephalosporin * Await repeat blood culture set 4 sent on 12/20, as the previous ones were all positive for Staph aureus * Consider GEORGI if patient continues to deteriorate without possible explanation. Spoke with notching press operator Dr Jimenez who said he needs it later. Per Dr Bhatt, notching press operator, he will probably get GEORGI on Saturday. * Also, PICC line placement and the duration of antibiotics could be decided upon whether he has endocarditis. * Femoral line on left side was taken out. Cardiovascular system Patient's repeat echo shows ejection fraction of 25% from 45% with wall motion abnormalities that appears to be chronic. His troponin was persistently elevated, possibly due to severe sepsis, and demand, but NSTEMI is the most likely pathology. His troponin is 10.40, down from the peak of 40. * Records obtained from shows that he received lower extremity angiogram, accessed via RIGHT side, with balloon ingioplasty on LEFT superficial femoral artery, and was later sealed via angioseal. Confirmed this detail with the cardiovascular physician Dr Burak Lindsey from [facility] (direct cell number [phone]) on 12/20/16 morning. * Check X-ray of the area did not show any radio-opaque foreign body. On palpation, nothing abnormal felt. * No more checking EKG and trending troponins per Dr Jimenez (notching press operator). * Possible GEORGI on Saturday. Hematology * SQ heparin TID for DVT ppx only Metabolic - Continue to follow chemistries and repeat electrolytes accordingly. IV fluids running. - Insulin NovoLog sliding scale running as the patient has tube feeding and is diabetic. Alimentary * Tube feeding running. with Insulin NovoLog sliding scale. Neurology Patient is intubated, so cannot perform full neuro exam. He was unarousable with sternal rub at Ativan running at 1mg/hr, so Ativan drip was discontinued, and a STAT CT head and chest was done, which did not reveal any new information. Ativan since then has been discontinued. -Will await his arousal and response. Weaning off ventillator would be easier this way. DVT prophylaxis with heparin TID CODE STATUS: Full code Problem List: 1. Sepsis 2. NSTEMI (non-ST elevated myocardial infarction) 3. MODS (multiple organ dysfunction syndrome) 4. PVD (peripheral vascular disease) with claudication 5. CAD (coronary artery disease) 6. ARDS (adult respiratory distress syndrome) 7. Pneumonia Pain Ratin Tomorrow's Labs & Rationales: ICU lab bundle, CXR, CBC to follow tube placement, sepsis, lytes disbalance. Plan DVT/Prophylaxis: pharmacological
--- NOTE | 2016-12-22 11:54 | CT SCAN REPORT ---
EXAMINATION: CT HEAD WITHOUT CONTRAST CLINICAL INFORMATION: Has been intubated and was on Ativan. Remaining. Now unarousable this a.m. with Ativan running 1 mg/h. Rule out intracranial pathology. Acute mental status change. COMPARISON: MRI scan of the head dated 02/21/2014. TECHNIQUE: Contiguous axial imaging was performed from the skull base to vertex without intravenous administration of contrast. DLP: 610.15 mGy-cm FINDINGS: Evaluation limited by motion artifact. There is no evidence of acute intracranial hemorrhage or territorial infarction. No abnormal mass effect or midline shift is seen. Zaldivar to white matter differentiation is well preserved. No extra-axial fluid collections are identified. The ventricles and sulci are enlarged, consistent with involutional changes. Findings are unchanged from prior exam. There is extensive periventricular deep white matter low-attenuation seen, consistent with ischemic small vessel disease. Old lacunar infarction in the left caudate is seen. The osseous structures and soft tissues are normal. The mastoid air cells and visualized portions of the paranasal sinuses are well aerated. IMPRESSION: 1. Unchanged appearance of the head with no acute intracranial findings. 2. Chronic small left basal ganglia lacunar infarction and diffuse periventricular deep white matter ischemic small vessel disease again noted.
--- NOTE | 2016-12-22 12:18 | CT SCAN REPORT ---
EXAMINATION: CT CHEST WITHOUT CONTRAST CLINICAL INFORMATION: Still intubated patient, weaning ventilation. Was unarousable this a.m. with Ativan taper to 1 mg/h. Follow-up on ARDS and effusion. COMPARISON: Chest x-ray dated 12/22/2016 and multiple prior chest x-rays dating back to 07/10/2014. TECHNIQUE: Multidetector volumetric CT imaging of the chest was obtained noncontrast. Sagittal and coronal reformations were obtained. DLP: 304.51 mGy-cm. FINDINGS: LUNGS: Moderate size bilateral posteriorly layering simple effusions are seen without pleural thickening, nodularity or complexity of the fluid seen. Associated volume loss and dense consolidation with air bronchograms are seen in both lower lobes, left greater than right with only a small amount of aeration remaining in the left lower lobe. There is bandlike opacity seen posteriorly in the left upper lobe paralleling the major fissure, consistent with dependent atelectasis. The right upper lobe and right middle lobe are largely clear. There is moderate centrilobular and mild paraseptal emphysema noted in the upper lobes bilaterally. No pneumothorax is seen. Endotracheal tube is in place with tip at the level of the aortic arch, approximately 4 cm above the kim. The central airways are patent. LYMPHOVASCULAR STRUCTURES: Aortic size normal. Severe atherosclerotic calcifications of the aorta and branch vessels, including all 3 coronary arteries. Borderline enlargement of the left heart chambers is seen. No pericardial effusion. No mediastinal, hilar or axillary adenopathy or free fluid collection. THYROID GLAND: Heterogeneous without suspicious dominant mass. UPPER ABDOMEN: Enteric tube is seen extending into the stomach with tip not included. Included portions of the solid organs in the upper abdomen unremarkable. BONES: The patient is status post median sternotomy. Multilevel mild degenerative changes are present throughout the thoracic spine. Moderate degenerative disc disease and spurring is seen in the lower cervical spine. IMPRESSION: 1. Moderate size bilateral simple-appearing pleural effusions are seen with associated volume loss and consolidation in both lower lobes, left greater than right. Findings are consistent with multi lobar pneumonia. 2. Bandlike area of dependent atelectasis seen in the left upper lobe, paralleling the major fissure. 3. Moderate emphysema. 4. Endotracheal tube tip 4 cm above the kim. Enteric tube extends into the stomach with tip not included. 5. Severe atherosclerotic vascular disease, including coronary artery disease.
--- NOTE | 2016-12-22 12:28 | NUR ---
PT TO CT SCAN OF THE HEAD AND CHEST W/O CONTRAST AT 1115. 2 YELLOW RINGS/A DUMONT NECKLACE WITH A DUMONT MEDAL/ A DUMONT BRACELET AND A PAIR OF GLASSES GIVEN TO PT'S TO BRING HOME.
[2016-12-22 16:00] VITALS: BP 122/74
--- NOTE | 2016-12-22 17:15 | PN- Cardiology ---
Subjective Subjective: Sedated/intubated. Objective Vital Signs and I&Os Vital Signs Date Time Temp Pulse Resp B/P Pulse O2 O2 Flow FiO2 Ox Delivery Rate 12/22 1653 35 12/22 1443 35 12/22 1303 35 12/22 1200 94 Ventilator 35% 12/22 0933 99.3 75 24 135/54 12/22 0830 35 12/22 0800 95 Ventilator 35% 12/22 0800 99.3 72 21 136/56 95 Ventilator 35% 12/22 0618 35 12/22 0400 94 Ventilator 35% 12/22 0258 35 12/22 0037 35 12/22 0000 93 Ventilator 35% 12/21 2200 35 12/21 2152 74 132/60 12/21 2000 94 Ventilator 35% 12/21 1917 35 Intake & Output 12/22 1600 12/22 0800 12/22 0000 12/21 1600 12/21 0800 12/21 0000 Intake Total 715 1020 970 512 525.9 Output Total 400 400 350 460 350 Balance 315 620 620 52 175.9 Intake, IV 56 120 170 226 205.9 Intake, Oral 0 0 Intake, Other 210 Intake, Tube 439 560 480 266 110 Feeding Intake, Tube 220 340 320 20 Irrigant Number 1 1 1 0 Bowel Movements Output, Urine 400 400 350 460 350 Physical Exam: Well-developed, well-nourished elderly male who is sedated/intubated. Neck: No JVD. Chest: Occasional rhonchi anteriorly. Heart: S1, S2, with soft (grade 1/6) systolic murmur. Abdomen: Soft, nontender, positive bowel sounds. Extremity: No edema Current Medications: Current Medications Sig/Damon Start time Last Medication Dose Route Stop Time Status Admin Acetaminophen 1,000 MG Q6P PRN 12/18 2144 AC 12/18 N/A 1 UNIT IV 2143 Acetaminophen 650 MG Q6P PRN 12/16 0015 AC 12/16 PO 2039 Acetaminophen/ 1 TAB Q6P PRN 12/16 14 AC Hydrocodone Bitart PO Aspirin 81 MG DAILY 12/16 1000 AC 12/22 PO 0933 Atorvastatin Calcium 40 MG 1700 12/16 1700 AC 12/22 PO 1700 Carvedilol 6.25 MG BID 12/18 2200 AC 12/22 PO 0933 Cefazolin Sodium 2 GM IQ8 12/22 0000 AC 12/22 N/A 1 UNIT IV 1700 Cefazolin Sodium 2,000 MG IQ8 12/20 1600 DC 12/22 IV 0035 Clopidogrel Bisulfate 75 MG DAILY 12/16 1000 AC 12/22 PO 0933 Heparin Sodium 5,000 UNIT Q8 12/19 1400 AC 12/22 (Porcine) SC 1519 Insulin Aspart 0 Q6 12/20 2003 AC 12/22 SC 1216 Lorazepam 50 MG Q12H 12/18 1400 AC 12/22 Dextrose/Water 500 ML IV 0104 Oxycodone HCl 10 MG Q6P PRN 12/16 0015 AC PO Pantoprazole Sodium 40 MG DAILY 12/18 1000 AC 12/22 IV 0933 Polyethylene Glycol 17 GM DAILY PRN 12/16 1015 AC PO Results Last 48 Hrs of Labs/Mics: Laboratory Tests 12/22/16 0900: pH 7.48 H, pCO2 32 L, pO2 83, HCO3 23, ABG O2 Sat (Measured) 96.0, P-50 (Temp Corrected) YES, Carboxyhemoglobin 0.3 L, O2 Concentration % 35%, Temperature 99.3, Respiration Rate 16, O2 Delivery Method VENT, Vent Mode AC, Expiratory Pressure 5, Tidal Volume 480, Phlebotomy Draw Site LEFT RADIAL 12/22/16 0450: Anion Gap 7, Estimated GFR > 60, Glucose 226 H, Calcium 7.9 L, Phosphorus 3.3, Magnesium 2.1, Total Bilirubin 0.4, AST 312 H, ALT 471 H, Albumin 2.3 L, CBC w Diff NO MAN DIFF REQ, RBC 3.56 L, MCV 90.9, MCH 30.7, RDW 14.3, MPV 10.2, Gran % 82.6 H, Lymphocytes % 6.1 L, Monocytes % 10.2 H, Eosinophils % 0.8, Basophils % 0.3, Absolute Granulocytes 8.8 H, Absolute Lymphocytes 0.6 L, Absolute Monocytes 1.1 H, Absolute Eosinophils 0.1, Absolute Basophils 0, PUBS MCHC 33.7 12/21/16 0920: pH 7.44, pCO2 35, pO2 84, HCO3 24, ABG O2 Sat (Measured) 96.0, P-50 (Temp Corrected) YES, Carboxyhemoglobin 0.4 L, O2 Concentration % 35%, Temperature 97.5, Respiration Rate 16, O2 Delivery Method VENT, Vent Mode AC, Expiratory Pressure 5, Tidal Volume 480, Phlebotomy Draw Site RIGHT RADIAL 12/21/16 0430: Anion Gap 7, Estimated GFR > 60, Glucose 173 H, Calcium 7.8 L, Phosphorus 3.3, Magnesium 2.3, Total Bilirubin 0.5, AST 650 H, ALT 748 H, Albumin 2.4 L, CBC w Diff NO MAN DIFF REQ, RBC 3.84 L, MCV 90.2, MCH 30.3, RDW 14.2, MPV 10.5 H, Gran % 82.8 H, Lymphocytes % 6.2 L, Monocytes % 10.6 H, Eosinophils % 0.3, Basophils % 0.1, Absolute Granulocytes 8.6 H, Absolute Lymphocytes 0.6 L, Absolute Monocytes 1.1 H, Absolute Eosinophils 0, Absolute Basophils 0, PUBS MCHC 33.6 Recent Imaging Studies: CXR (12/22/2016) 1. Satisfactory position of endotracheal tube and nasogastric tube. 2. Persistent haziness in the left lung base probably from effusion and underlying atelectasis. Minimal right basilar opacities noted. Head CT (12/22/2016) 1. Unchanged appearance of the head with no acute intracranial findings. 2. Chronic small left basal ganglia lacunar infarction and diffuse periventricular deep white matter ischemic small vessel disease again noted. Chest CT (12/22/2016) 1. Moderate size bilateral simple-appearing pleural effusions are seen with associated volume loss and consolidation in both lower lobes, left greater than right. Findings are consistent with multi lobar pneumonia. 2. Bandlike area of dependent atelectasis seen in the left upper lobe, paralleling the major fissure. 3. Moderate emphysema. 4. Endotracheal tube tip 4 cm above the kim. Enteric tube extends into the stomach with tip not included. 5. Severe atherosclerotic vascular disease, including coronary artery disease. Assessment/Plan Assessment/Plan Overall improved multiorgan dysfunction syndrome secondary to Staphylococcus aureus bacteremia, and STEMI, systolic heart failure/ARDS, etc. There remains a concern for infective endocarditis and the plan is for transesophageal echo cardiography this Saturday and see 12/24/2016. Continue to follow-up on recommendations from pulmonary medicine. Infectious diseases, etc. Continue DVT prophylaxis. Continue telemetry? Yes
--- NOTE | 2016-12-22 20:33 | NUR ---
PT UNRESPONSIVE TO VERBAL STIMULI, WITHDRAWS TO PAINFUL STIMULI, PUPILS EQUAL AND REACT BRISKLY TO LIGHT. SOFT BILATERAL WRIST RESTRAINTS ON. ORALLY INTUBATED AND VENTED. BREATH SOUNDS CLEAR WITH DIMINISHED BREATH SOUNDS AT BASES BILATERALLY. SUCTIONING FOR SCANT AMT OF YELLOW SECREATIONS. SEE FLOW SHEET FOR VS, 02 SATS. I/O'S. MONITOR SHOWS NSR, NO ECTOPY NOTED AT PRESENT. BP STABLE AT PRESENT. ABD SOFT, NONTENDER, NONDISTENDED, POSIITVE BOWEL SOUNDS. OGT IN PLACE-PLACEMENT CONFIRMED BY AIR, ON TUBE FEEDS-TOLERATING WELL AT PRESENT. MCNEILL IN PLACE-BORDERLINE OUTPUT OF CLEAR YELLOW URINE AT PRESENT. SKIN INTACT-RT BUTTOCKS SLIGHTLY RED, BLANCHABLE
[2016-12-22 23:00] VITALS: BP 122/60
[2016-12-23 05:24] LABS: ABSOLUTE BASOPHIL COUNT 0 /CUMM (0.0-0.2); ABSOLUTE EOSINOPHIL COUNT 0.1 /CUMM (0.0-0.7); ABSOLUTE GRANULOCYTE CT 7.8 /CUMM (1.4-6.5); ABSOLUTE LYMPH COUNT 0.8 /CUMM (1.2-3.4); BASOPHIL % 0 % (0.0-2.0); EOSINOPHIL % 1.4 % (0-5); GRANULOCYTE % 79.8 % (42.2-75.2); HEMATOCRIT 32.5 % (42-52); MEAN CORPUSCULAR HGB 30.5 PG (27.0-31.0); MEAN CORPUSCULAR HGB CONC 33.3 G/DL (33.0-37.0); MEAN CORPUSCULAR VOLUME 91.3 FL (80.0-94.0); MEAN PLATELET VOLUME 10.7 FL (7.4-10.4); PLATELET COUNT 215 /CUMM (130-400); RBC DISTRIBUTION WIDTH 14.4 % (11.5-14.5); RED BLOOD CELL CT 3.57 /CUMM (4.70-6.10); WHITE BLOOD CELL COUNT 9.7 /CUMM (4.8-10.8)
--- NOTE | 2016-12-23 07:59 | RADIOLOGY REPORT ---
EXAMINATION: XR PORTABLE CHEST CLINICAL INFORMATION: Endotracheal tube placement COMPARISON: Chest x-ray 12/22/2016 TECHNIQUE: Portable AP portable view of the chest was obtained. FINDINGS: Endotracheal tube is positioned approximately 3 cm above the expected location of the kim. The kim is not optimally defined. If there is an enteric tube, it is not optimally delineated on this film. There is increase in hypoexpansion of lungs with diaphragms at the level of the eighth posterior intercostal space. Poststernotomy changes are again noted. There is mild cardiomegaly and a tortuous aorta, unchanged. There is some mild interstitial edema. There is persistent consolidation or atelectasis in the retrocardiac left lower lobe with possible increase in left pleural effusion. There is increased atelectasis at the right lung base. Right effusion unchanged. There is no pneumothorax. IMPRESSION: Endotracheal tube in place Mildly hypoexpanded lungs. Mild interstitial edema. Increased atelectasis at both bases Persisting consolidation at the left base with probable increasing left pleural effusion
[2016-12-23 08:00] VITALS: BP 130/64
--- NOTE | 2016-12-23 08:30 | NUR ---
REC'D THE PT ORALLY INTUBATED AND MECHANICALLY VENTILATED PER MD ORDER. TL BS ARE CLEAR BUT DIMINISHED AT THE BASES. O2 SAT IS 96% ON AN FIO2 OF 35%. SUCTIONED FOR SMALL AMOUNTS OF CREAMY ELIZONDO OCC BLOOD TINGED SPUTUM. PT REMAINS UNRESPONSIVE, NO MOVEMENT OF EXTREMITIES NOTED-SPONTANEOUS OR TO NOXIOUS STIMULI. PUPILS ARE 2MM AND REACT BRISKLY TO LIGHT. PT IS IN A NSR WITHOUT ECTOPY PER THE PUBLIC HEALTH. TRACE EDEMA NOTED TO TL HANDS. ABD IS SOFT WITH NORMOACTIVE BOWEL SOUNDS. OGT REMAINS IN PLACE WITH GLUCERNA 1.2 GOING AT 70ML/HR. 25ML RESIDUAL NOTED, HOWEVER, THIS WAS RIGHT AFTER THE FEEDING PUMP DELIVERED A 110ML WATER FLUSH. WATER FLUSHES ARE Q4H. MCNEILL IN PLACE DRAINING CLEAR LT MAX URINE.
--- NOTE | 2016-12-23 08:35 | NUR ---
PT REMAINED UNRESPONSIVE THOUGHOUT SHIFT. TOLERATED TUBE FEEDS WELL THOUGHOUT SHIFT. NO OTHER CHANGE IN PT ASSESSMENTS THOUGHOUT SHIFT.
--- NOTE | 2016-12-23 09:15 | PN- Infect Dx ---
Subjective Subjective: Afebrile. He remains sedated and unable to provide any history. Objective Last 24 Hrs of Vital Signs/I&O Vital Signs Date Time Temp Pulse Resp B/P Pulse O2 O2 Flow FiO2 Ox Delivery Rate 12/23 0550 35 12/23 0400 97 Ventilator 35% 12/23 0317 35 12/23 0037 35 12/23 0000 95 Ventilator 35% 12/22 2300 98.3 62 21 122/60 95 Ventilator 35% 12/22 2216 35 12/22 2126 70 19 133/65 12/22 2000 95 Ventilator 35% 12/22 1944 35 12/22 1653 35 12/22 1600 95 Ventilator 35% 12/22 1600 98.7 74 22 122/74 95 Ventilator 35% 12/22 1443 35 12/22 1303 35 12/22 1200 94 Ventilator 35% 12/22 0933 99.3 75 24 135/54 Intake & Output 12/23 1600 12/23 0800 12/23 0000 Intake Total 606 803 Output Total 340 395 Balance 266 408 Intake, IV 50 60 Intake, Tube 421 523 Feeding Intake, Tube 135 220 Irrigant Number 0 0 Bowel Movements Output, Urine 340 395 Physical Exam Other Physical Findings: He is sedated, unresponsive, on the ventilator Lungs few rhonchi bilaterally Heart regular rhythm with no murmur Extremities no cyanosis, clubbing or edema Cates catheter remains in place Results Last 24 Hours of Lab Results: Laboratory Tests 12/23 12/23 0610 0413 Blood Gas pH (7.35 - 7.45 PH) 7.49 H pCO2 (35 - 45 TORR) 34 L pO2 (80 - 100 TORR) 75 L HCO3 (21 - 28 MEQ/L) 25 ABG O2 Sat (Measured) (>96.0 %) 95.0 L P-50 (Temp Corrected) N Carboxyhemoglobin (1.5 - 5.0 %) 0.8 L O2 Concentration % .35 Respiration Rate (BPM) 16 O2 Delivery Method VENT Vent Mode A/C Expiratory Pressure (CMH2O/P) 5 Tidal Volume (CC) 480 Chemistry Sodium (137 - 145 mmol/L) 144 Potassium (3.5 - 5.1 mmol/L) 4.8 Chloride (98 - 107 mmol/L) 109 H Carbon Dioxide (22 - 30 mmol/L) 29 Anion Gap (5 - 16) 7 BUN (9 - 20 mg/dL) 22 H Creatinine (0.7 - 1.2 mg/dL) 0.6 L Estimated GFR (>60 ml/min) > 60 Glucose (65 - 99 mg/dL) 217 H Calcium (8.4 - 10.2 mg/dL) 8.2 L Phosphorus (2.5 - 4.5 mg/dL) 4.1 Magnesium (1.6 - 2.3 mg/dL) 2.1 Total Bilirubin (0.2 - 1.3 mg/dL) 0.6 AST (17 - 59 U/L) 193 H ALT (21 - 72 U/L) 337 H Albumin (3.5 - 5.0 g/dL) 2.4 L Hematology CBC w Diff NO MAN DIFF REQ WBC (4.8 - 10.8 /CUMM) 9.7 RBC (4.70 - 6.10 /CUMM) 3.57 L Hgb (14.0 - 18.0 G/DL) 10.9 L Hct (42 - 52 %) 32.5 L MCV (80.0 - 94.0 FL) 91.3 MCH (27.0 - 31.0 PG) 30.5 RDW (11.5 - 14.5 %) 14.4 Plt Count (130 - 400 /CUMM) 215 MPV (7.4 - 10.4 FL) 10.7 H Gran % (42.2 - 75.2 %) 79.8 H Lymphocytes % (20.5 - 51.1 %) 8.3 L Monocytes % (1.7 - 9.3 %) 10.5 H Eosinophils % (0 - 5 %) 1.4 Basophils % (0.0 - 2.0 %) 0 L Absolute Granulocytes (1.4 - 6.5 /CUMM) 7.8 H Absolute Lymphocytes (1.2 - 3.4 /CUMM) 0.8 L Absolute Monocytes (0.10 - 0.60 /CUMM) 1.0 H Absolute Eosinophils (0.0 - 0.7 /CUMM) 0.1 Absolute Basophils (0.0 - 0.2 /CUMM) 0 PUBS MCHC (33.0 - 37.0 G/DL) 33.3 Miscellaneous Phlebotomy Draw Site RIGHT RADIAL Last 24 Hours of Evens Results: Blood cultures 2 December 20 remain negative Recent Imaging Studies: Chest x-ray December 23, personally reviewed, reveals mild interstitial edema with persistent left lower lobe density Assessment/Plan Impression: Overall improved on Cefazolin now Day 8 of treatment for Staph aureus sepsis presumably secondary to pneumonia with temperatures and white blood cell count remaining normal and with most recent blood cultures remaiing negative. His renal function has normalized and his liver enzymes continuing to decrease. GEORGI is apparently tentatively scheduled for the a.m. and may be helpful in determining the optimal duration of his therapy, though, with repeat blood cultures from 3 days after admission still positive, he may benefit from a four- week course of antibiotics. Suggestion: 1. Await possible GEORGI in the a.m. per Cardiology 2. May require PICC 3. Continue Cefazolin
--- NOTE | 2016-12-23 10:31 | PN- CRCU ---
Subjective HPI/Critical Care Issues: pt seen and examined arousable to tactile stimuli but sedated still mechanical ventilation ros unobtainable labs improved Objective Current Medications: Current Medications Sig/Damon Start time Last Medication Dose Route Stop Time Status Admin Acetaminophen 1,000 MG Q6P PRN 12/18 2145 AC 12/18 N/A 1 UNIT IV 2144 Acetaminophen 650 MG Q6P PRN 12/16 0015 AC 12/16 PO 2040 Acetaminophen/ 1 TAB Q6P PRN 12/16 0015 DC Hydrocodone Bitart PO Aspirin 81 MG DAILY 12/16 1000 AC 12/22 PO 0933 Atorvastatin Calcium 40 MG 1700 12/16 1700 AC 12/22 PO 1700 Carvedilol 6.25 MG BID 12/18 220 AC 12/22 PO 2126 Cefazolin Sodium 2 GM IQ8 12/22 0000 AC 12/23 N/A 1 UNIT IV 0913 Clopidogrel Bisulfate 75 MG DAILY 12/16 1000 AC 12/22 PO 0933 Heparin Sodium 5,000 UNIT Q8 12/19 1400 AC 12/23 (Porcine) SC 0653 Insulin Aspart 0 Q6 12/20 2002 AC 12/23 SC 0654 Lorazepam 50 MG Q12H 12/18 1400 DC 12/22 Dextrose/Water 500 ML IV 0104 Oxycodone HCl 10 MG Q6P PRN 12/16 0015 DC PO Pantoprazole Sodium 40 MG DAILY 12/18 1000 AC 12/22 IV 0933 Polyethylene Glycol 17 GM DAILY PRN 12/16 1015 AC PO Vital Signs & I&O Last 24 Hrs of Vitals and I&O: Vital Signs Date Time Temp Pulse Resp B/P Pulse O2 O2 Flow FiO2 Ox Delivery Rate 12/23 0550 35 12/23 0400 97 Ventilator 35% 12/23 0317 35 12/23 0037 35 12/23 0000 95 Ventilator 35% 12/22 2300 98.3 62 21 122/60 95 Ventilator 35% 12/22 2216 35 12/22 2126 70 19 133/65 12/22 2000 95 Ventilator 35% 12/22 1944 35 12/22 1653 35 12/22 1600 95 Ventilator 35% 12/22 1600 98.7 74 22 122/74 95 Ventilator 35% 12/22 1443 35 12/22 1303 35 12/22 1200 94 Ventilator 35% Intake & Output 12/23 1600 12/23 0800 12/23 0000 Intake Total 606 803 Output Total 340 395 Balance 266 408 Intake, IV 50 60 Intake, Tube 421 523 Feeding Intake, Tube 135 220 Irrigant Number 0 0 Bowel Movements Output, Urine 340 395 Exam Other Physical Findings: gen sedated, intubated heent ett cvs s1, s2 lungs transmitted abd soft, bs+ ext no edema Results Last 24 Hrs of Lab Results: Laboratory Tests 12/23/16 0610: pH 7.49 H, pCO2 34 L, pO2 75 L, HCO3 25, ABG O2 Sat (Measured) 95.0 L, P-50 (Temp Corrected) N, Carboxyhemoglobin 0.8 L, O2 Concentration % .35, Respiration Rate 16, O2 Delivery Method VENT, Vent Mode A/C, Expiratory Pressure 5, Tidal Volume 480, Phlebotomy Draw Site RIGHT RADIAL 12/23/16 0413: Anion Gap 7, Estimated GFR > 60, Glucose 217 H, Calcium 8.2 L, Phosphorus 4.1, Magnesium 2.1, Total Bilirubin 0.6, AST 193 H, ALT 337 H, Albumin 2.4 L, CBC w Diff NO MAN DIFF REQ, RBC 3.57 L, MCV 91.3, MCH 30.5, RDW 14.4, MPV 10.7 H, Gran % 79.8 H, Lymphocytes % 8.3 L, Monocytes % 10.5 H, Eosinophils % 1.4, Basophils % 0 L, Absolute Granulocytes 7.8 H, Absolute Lymphocytes 0.8 L, Absolute Monocytes 1.0 H, Absolute Eosinophils 0.1, Absolute Basophils 0, PUBS MCHC 33.3 Impression/Plan Impression/Plan Impression/Plan: Impression 76 year old man -resolving ARDS, now mild, p/f ratio is 240 -nstemi, systolic heart failure -staph aureus bacteremia -IMPROVING multi-organ dysfunction syndrome - MODS Plan Respiratory -continue low tidal volume ventilation per ARDSnet protocol -PEEP at 5 -goal spo2 88-92% -depending on GEORGI plan, will attempt to liberate from ventilator, initially reducing sedation, will taper ativan and reassess ID -ID appreciated -Cefazolin for S. Aureus sensitive to Oxacillin -GEORGI recommended will d/w cardiology CVS -f/u cardiology recommendations -EF worsened, limited per cardiology Heme -montior h/h, coags Metabolic -ins/outs -monitor electrolytes Alimentary -tube feeds Neuro -d/c ativan, CT head without acute pathology DVT prophylaxis at all times TTS 35 min
--- NOTE | 2016-12-23 11:34 | PN- Resident CRCU ---
Subjective HPI/CRCU Issues: Patient was seen and examined today. Patient intubated, off Ativan drip sedation since yesterday 5 AM, patient minimally reposans sternal examnation. his last blood culture remain negative. In and out positive balance. Patient on IV cefazolin antibiotic day 8 of total antibiotic course. on tube feeding. Afebrile, blood pressure between 140/65-128/55. Objective Vital Signs & I&O Last 8 Hrs of Vitals and I&O: Intake & Output 12/23 1600 12/23 0800 12/23 0000 Intake Total 606 803 Output Total 340 395 Balance 266 408 Intake, IV 50 60 Intake, Tube 421 523 Feeding Intake, Tube 135 220 Irrigant Number 0 0 Bowel Movements Output, Urine 340 395 Laboratory Tests 12/23 12/23 0610 0413 Blood Gas pH (7.35 - 7.45 PH) 7.49 H pCO2 (35 - 45 TORR) 34 L pO2 (80 - 100 TORR) 75 L HCO3 (21 - 28 MEQ/L) 25 ABG O2 Sat (Measured) (>96.0 %) 95.0 L P-50 (Temp Corrected) N Carboxyhemoglobin (1.5 - 5.0 %) 0.8 L O2 Concentration % .35 Respiration Rate (BPM) 16 O2 Delivery Method VENT Vent Mode A/C Expiratory Pressure (CMH2O/P) 5 Tidal Volume (CC) 480 Chemistry Sodium (137 - 145 mmol/L) 144 Potassium (3.5 - 5.1 mmol/L) 4.8 Chloride (98 - 107 mmol/L) 109 H Carbon Dioxide (22 - 30 mmol/L) 29 Anion Gap (5 - 16) 7 BUN (9 - 20 mg/dL) 22 H Creatinine (0.7 - 1.2 mg/dL) 0.6 L Estimated GFR (>60 ml/min) > 60 Glucose (65 - 99 mg/dL) 217 H Calcium (8.4 - 10.2 mg/dL) 8.2 L Phosphorus (2.5 - 4.5 mg/dL) 4.1 Magnesium (1.6 - 2.3 mg/dL) 2.1 Total Bilirubin (0.2 - 1.3 mg/dL) 0.6 AST (17 - 59 U/L) 193 H ALT (21 - 72 U/L) 337 H Albumin (3.5 - 5.0 g/dL) 2.4 L Hematology CBC w Diff NO MAN DIFF REQ WBC (4.8 - 10.8 /CUMM) 9.7 RBC (4.70 - 6.10 /CUMM) 3.57 L Hgb (14.0 - 18.0 G/DL) 10.9 L Hct (42 - 52 %) 32.5 L MCV (80.0 - 94.0 FL) 91.3 MCH (27.0 - 31.0 PG) 30.5 RDW (11.5 - 14.5 %) 14.4 Plt Count (130 - 400 /CUMM) 215 MPV (7.4 - 10.4 FL) 10.7 H Gran % (42.2 - 75.2 %) 79.8 H Lymphocytes % (20.5 - 51.1 %) 8.3 L Monocytes % (1.7 - 9.3 %) 10.5 H Eosinophils % (0 - 5 %) 1.4 Basophils % (0.0 - 2.0 %) 0 L Absolute Granulocytes (1.4 - 6.5 /CUMM) 7.8 H Absolute Lymphocytes (1.2 - 3.4 /CUMM) 0.8 L Absolute Monocytes (0.10 - 0.60 /CUMM) 1.0 H Absolute Eosinophils (0.0 - 0.7 /CUMM) 0.1 Absolute Basophils (0.0 - 0.2 /CUMM) 0 PUBS MCHC (33.0 - 37.0 G/DL) 33.3 Miscellaneous Phlebotomy Draw Site RIGHT RADIAL Vital Signs Date Time Temp Pulse Resp B/P Pulse O2 O2 Flow FiO2 Ox Delivery Rate 12/23 1053 35 12/23 1025 97.7 66 20 136/55 12/23 0550 35 12/23 0400 97 Ventilator 35% 12/23 0317 35 12/23 0037 35 12/23 0000 95 Ventilator 35% 12/22 2300 98.3 62 21 122/60 95 Ventilator 35% 12/22 2216 35 12/22 2126 70 19 133/65 12/22 2000 95 Ventilator 35% 12/22 1944 35 12/22 1653 35 12/22 1600 95 Ventilator 35% 12/22 1600 98.7 74 22 122/74 95 Ventilator 35% 12/22 1443 35 12/22 1303 35 Intake & Output 12/23 1600 12/23 0800 12/23 0000 Intake Total 606 803 Output Total 340 395 Balance 266 408 Intake, IV 50 60 Intake, Tube 421 523 Feeding Intake, Tube 135 220 Irrigant Number 0 0 Bowel Movements Output, Urine 340 395 Exam General Appearance: comfortable, sedated, intubated Head: INTUBATED Neck: supple Respiratory: normal breath sounds, decreased breath sounds, crackles, ON VENT Cardiovascular: regular rate/rhythm Gastrointestinal: normal bowel sounds, soft, non-tender Extremities: normal inspection, no edema Nutrition Nutrition: tube feeding Current Medications: Current Medications Sig/Damon Start time Last Medication Dose Route Stop Time Status Admin Acetaminophen 1,000 MG Q6P PRN 12/18 2145 AC 12/18 N/A 1 UNIT IV 2144 Acetaminophen 650 MG Q6P PRN 12/16 0015 AC 12/16 PO 2040 Acetaminophen/ 1 TAB Q6P PRN 12/16 0015 DC Hydrocodone Bitart PO Aspirin 81 MG DAILY 12/16 1000 AC 12/23 PO 1025 Atorvastatin Calcium 40 MG 1700 12/16 1700 AC 12/22 PO 1700 Carvedilol 6.25 MG BID 12/18 2200 AC 12/23 PO 1025 Cefazolin Sodium 2 GM IQ8 12/22 0000 AC 12/23 N/A 1 UNIT IV 0913 Clopidogrel Bisulfate 75 MG DAILY 12/16 1000 AC 12/23 PO 1025 Furosemide 20 MG ONCE ONE 12/23 1200 DC IV 12/23 1201 Heparin Sodium 5,000 UNIT Q8 12/19 1400 AC 12/23 (Porcine) SC 0653 Insulin Aspart 0 Q6 12/20 2003 AC 12/23 SC 0654 Lorazepam 50 MG Q12H 12/18 1400 DC 12/22 Dextrose/Water 500 ML IV 0104 Oxycodone HCl 10 MG Q6P PRN 12/16 0015 DC PO Pantoprazole Sodium 40 MG DAILY 12/18 1000 AC 12/23 IV 1025 Polyethylene Glycol 17 GM DAILY PRN 12/16 1015 AC PO CXR Findings: EXAMINATION: XR PORTABLE CHEST CLINICAL INFORMATION: Endotracheal tube placement COMPARISON: Chest x-ray 12/22/2016 TECHNIQUE: Portable AP portable view of the chest was obtained. FINDINGS: Endotracheal tube is positioned approximately 3 cm above the expected location of the kim. The kim is not optimally defined. If there is an enteric tube, it is not optimally delineated on this film. There is increase in hypoexpansion of lungs with diaphragms at the level of the eighth posterior intercostal space. Poststernotomy changes are again noted. There is mild cardiomegaly and a tortuous aorta, unchanged. There is some mild interstitial edema. There is persistent consolidation or atelectasis in the retrocardiac left lower lobe with possible increase in left pleural effusion. There is increased atelectasis at the right lung base. Right effusion unchanged. There is no pneumothorax. IMPRESSION: Endotracheal tube in place Mildly hypoexpanded lungs. Mild interstitial edema. Increased atelectasis at both bases Persisting consolidation at the left base with probable increasing left pleural effusion Impression/Plan Impression/Problem List Impression: 68-year-old male with past medical history significant for hypertension, hyperlipidemia, peripheral vascular disease, bladder cancer diagnosed over one year ago, oral HSV, CAD with a triple bypass in 1993, who has all his routine medical care at the [facility], who presents with chief complaint of lower extremity weakness, fever, chills for 20 after having a vascular procedure at the [facility] a day prior to that. He is being managed in the ICU for the following issues: Multiorgan failure syndrome, improving today For the course of his stay in the ICU, his many organ system has been affected. * His respiratory status deteriorated and he was intubated. He seems to be slightly better today, but is still intubated. He has tolerated ventiallation weaning well since 2 days. * His troponin was persistently elevated, possibly due to severe sepsis, and demand, but NSTEMI is the most likely pathology. His last troponin was 10.40, down from the peak of 40. * His blood pressure had gone down severely, to the point requiring norepinephrine, but has been stable since 12/18/16 morning. * His kidney functions had deteriorated to creatinine 2.2, but is better today at 0.6. * His liver enzymes were elevated too, but is lower today. AST/ALT 312/471. Total bili- 0.4 today. * His condition updated to his /daughter, who understand the seriousness of his situation. * Overall patient doing much better, with resolving/improving of most underlying acute medical condition. Respiratory Acute respiratory distress syndrome, better today * Chest x-ray showed mild interstitial edema, we'll give the patient 20 IV Lasix once * His ABG showed: Respiratory alkalosis he still on 480/16/0.35/5. p.t data showed that he is breathing at a rate of 16-20 with Td.vol of 440-450. * Patient is being treated for acute respiratory distress syndrome, can be characterized as having moderate ARDS, now mild ARDS * Adequate sedation with Ativan drip running at 1mg/hr. Discontinued it today. Will watch for him to awake. * Continuing Cefazolin as Staph aureus is found to be sensitive to cephalosporin Infectious disease Sepsis, possibly secondary to pneumonia * Continuing Cefazolin as Staph aureus is found to be sensitive to cephalosporin * Await repeat blood culture set 4 sent on 12/20, as the previous ones were all positive for Staph aureus * Consider GEORGI if patient continues to deteriorate without possible explanation. Spoke with inventory representative Dr Jimenez who said he needs it later. Per Dr Bhatt, inventory representative, he will probably get GEORGI on Saturday. * Also, PICC line placement and the duration of antibiotics could be decided upon whether he has endocarditis. * Femoral line on left side was taken out. Cardiovascular system Patient's repeat echo shows ejection fraction of 25% from 45% with wall motion abnormalities that appears to be chronic. His troponin was persistently elevated, possibly due to severe sepsis, and demand, but NSTEMI is the most likely pathology. His troponin is 10.40, down from the peak of 40. * Records obtained from [facility] shows that he received lower extremity angiogram, accessed via RIGHT side, with balloon ingioplasty on LEFT superficial femoral artery, and was later sealed via angioseal. Confirmed this detail with the cardiovascular physician Dr Burak Lindsey from [facility] (direct cell number [phone]) on 12/20/16 morning. * Check X-ray of the area did not show any radio-opaque foreign body. On palpation, nothing abnormal felt. * No more checking EKG and trending troponins per Dr Jimenez (inventory representative). Hematology * SQ heparin TID for DVT ppx only Metabolic - Continue to follow chemistries and repeat electrolytes accordingly. IV fluids running. - Insulin NovoLog sliding scale running as the patient has tube feeding and is diabetic. Alimentary * Tube feeding running. with Insulin NovoLog sliding scale. Neurology Patient is intubated, He IS arousable with sternal rub off Ativan Ativan drip Weaning off ventillator would be easier this way. DVT prophylaxis with heparin TID CODE STATUS: Full code Problem List: 1. MODS (multiple organ dysfunction syndrome) 2. Sepsis 3. Elevated troponin I level Pain Ratin Tomorrow's Labs & Rationales: ICU bundle cbc cxr Plan DVT/Prophylaxis: pharmacological
[2016-12-23 16:00] VITALS: BP 116/68
[2016-12-23 23:56] VITALS: BP 136/58
[2016-12-24 05:01] LABS: ABSOLUTE BASOPHIL COUNT 0 /CUMM (0.0-0.2); ABSOLUTE EOSINOPHIL COUNT 0.1 /CUMM (0.0-0.7); ABSOLUTE GRANULOCYTE CT 8.6 /CUMM (1.4-6.5); ABSOLUTE LYMPH COUNT 0.8 /CUMM (1.2-3.4); ABSOLUTE MONOCYTE COUNT 0.8 /CUMM (0.10-0.60); BASOPHIL % 0.1 % (0.0-2.0); EOSINOPHIL % 1.4 % (0-5); GRANULOCYTE % 83.7 % (42.2-75.2); HEMATOCRIT 31.1 % (42-52); MEAN CORPUSCULAR HGB 30.9 PG (27.0-31.0); MEAN CORPUSCULAR HGB CONC 34.1 G/DL (33.0-37.0); MEAN CORPUSCULAR VOLUME 90.8 FL (80.0-94.0); MEAN PLATELET VOLUME 10.4 FL (7.4-10.4); PLATELET COUNT 223 /CUMM (130-400); RBC DISTRIBUTION WIDTH 14.2 % (11.5-14.5); RED BLOOD CELL CT 3.42 /CUMM (4.70-6.10); WHITE BLOOD CELL COUNT 10.3 /CUMM (4.8-10.8)
--- NOTE | 2016-12-24 07:39 | PN- Resident CRCU ---
Subjective HPI/CRCU Issues: I followed up and examined the patient today. He is intubated, partially arousable, opens his eyes partially when called by his name without touching. He was not following further instructions in the morning. No events overnight, vitals have been stable overnight. Objective Vital Signs & I&O Last 8 Hrs of Vitals and I&O: Vital Signs Date Time Temp Pulse Resp B/P Pulse O2 O2 Flow FiO2 Ox Delivery Rate 12/24 1620 35 12/24 1600 95 Ventilator 35% 12/24 1600 98.9 62 16 116/58 95 Ventilator 35% 12/24 1502 35 12/24 1312 35 Intake & Output 12/24 1600 Intake Total 168 Output Total 250 Balance -82 Intake, IV 50 Intake, Tube 8 Feeding Intake, Tube 110 Irrigant Output, Urine 250 Exam General Appearance: well developed/nourished, no apparent distress, intubated Other Physical Findings: Head: Normocephalic, atraumatic Eyes: Pupils normal in size, regular, reacting to light Nose: Normal on inspection Neck: Supple, full range of motion, no thyromegaly Heart: regular rhythm Lung: Intubated, minimal crackles heard bilaterally, better than yesterday, no wheeze Abd: Soft, non-tender, no distention appreciated Extremities: no change, some swelling present over b/l hands, no redness Neuro: Normal reflex b/l Skin: Warm and dry Weaning Parameters NIF: 33 Minute Volume: 7.39 Resp rate: 21 Vt: 345 Heart Rate: 66 Weaning Schedule Start Time: 1610 Minute Volume: 9.85 Resp Rate: 22 Vt: 430 Heart Rate: 66 End Time: 1940 Minute Volume: 8.31 Resp Rate: 19 Vt: 436 Heart Rate: 68 Cates Site: urethral Nutrition Nutrition: tube feeding Current Medications: Current Medications Sig/Damon Start time Last Medication Dose Route Stop Time Status Admin Acetaminophen 1,000 MG Q6P PRN 12/18 2144 AC 12/18 N/A 1 UNIT IV 2143 Acetaminophen 650 MG Q6P PRN 12/16 0015 AC 12/16 PO 204 Aspirin 81 MG DAILY 12/16 1000 AC 12/24 PO 1055 Atorvastatin Calcium 40 MG 1700 12/16 1700 AC 12/24 PO 1618 Carvedilol 6.25 MG BID 12/18 220 AC 12/24 PO 1056 Cefazolin Sodium 2 GM IQ8 12/22 0000 AC 12/24 N/A 1 UNIT IV 1618 Clopidogrel Bisulfate 75 MG DAILY 12/16 1000 AC 12/24 PO 1057 Heparin Sodium 5,000 UNIT Q8 12/19 1400 AC 12/24 (Porcine) SC 1421 Insulin Aspart 0 Q6 12/20 2002 AC 12/24 SC 1844 Pantoprazole Sodium 40 MG DAILY 12/18 1000 AC 12/24 IV 1057 Polyethylene Glycol 17 GM DAILY PRN 12/16 1015 AC PO Impression/Plan Impression/Problem List Impression: 68-year-old male with past medical history significant for hypertension, hyperlipidemia, peripheral vascular disease, bladder cancer diagnosed over one year ago, oral HSV, CAD with a triple bypass in 1993, who has all his routine medical care at the [place], who presents with chief complaint of lower extremity weakness, fever, chills for 20 after having a vascular procedure at the [facility] a day prior to that. 68-year-old male with past medical history significant for hypertension, hyperlipidemia, peripheral vascular disease, bladder cancer diagnosed over one year ago, oral HSV, CAD with a triple bypass in 1993, who has all his routine medical care at the [place], who presented with chief complaint of lower extremity weakness, fever, chills. He is being managed in the ICU for the following issues: Multiorgan failure syndrome, improving today For the course of his stay in the ICU, his many organ system has been affected. * His respiratory status deteriorated and he was intubated. He seems to be slightly better today, but is still intubated. He has tolerated ventiallation weaning well since 2 days. * His troponin was persistently elevated, possibly due to severe sepsis, and demand, but NSTEMI is the most likely pathology. His last troponin was 10.40, down from the peak of 40. * His blood pressure had gone down severely, to the point requiring norepinephrine, but has been stable since 12/18/16 morning. * His kidney functions had deteriorated to creatinine 2.2, but is better today at 0.6. * His liver enzymes were elevated too, but is lower today. * His condition updated to his /daughter, who understand the seriousness of his situation. * Dr Lindsey from [facility] had contacted earlier this morning requesting update about the patient's condition. With family's permission, he was updated about patient's condition and improving situation. But he was also told that the patient is still in the intensive care unit and requires ICU care. Respiratory Acute respiratory distress syndrome, better today * Patient is currently intubated, tolerating the ventilation well. Saturation is maintained above 90%, now at PEEP 5 with FiO2 35%. Hope to wean him further today. * Patient is being treated for acute respiratory distress syndrome, can be characterized as having moderate ARDS, now mild ARDS * Discontinued Ativan yesterday. Will watch for him to awake. * Continuing Cefazolin as Staph aureus is found to be sensitive to cephalosporin Infectious disease Sepsis, possibly secondary to pneumonia * Continuing Cefazolin as Staph aureus is found to be sensitive to cephalosporin * Await repeat blood culture set 4 sent on 12/20, as the previous ones were all positive for Staph aureus * Will get GEORGI possibly tomorrow. This can guide as to the length of therapy depending on possible endocarditis. * Also, PICC line placement and the duration of antibiotics could be decided upon whether he has endocarditis. * Femoral line on left side was taken out. Cardiovascular system Patient's repeat echo shows ejection fraction of 25% from 45% with wall motion abnormalities that appears to be chronic. His troponin was persistently elevated, possibly due to severe sepsis, and demand, but NSTEMI is the most likely pathology. His troponin is 10.40, down from the peak of 40. * Records obtained from [facility] shows that he received lower extremity angiogram, accessed via RIGHT side, with balloon ingioplasty on LEFT superficial femoral artery, and was later sealed via angioseal. Confirmed this detail with the cardiovascular physician Dr Burak Lindsey from [facility] (direct cell number [phone]) on 12/20/16 morning. * Check X-ray of the area did not show any radio-opaque foreign body. On palpation, nothing abnormal felt. * No more checking EKG and trending troponins per Dr Jimenez (corporate communications manager). * Possible GEORGI on Saturday. Hematology * SQ heparin TID for DVT ppx only Metabolic - Continue to follow chemistries and repeat electrolytes accordingly. IV fluids running. - Insulin NovoLog sliding scale running as the patient has tube feeding and is diabetic. Alimentary * Tube feeding running. with Insulin NovoLog sliding scale. Nothing by mouth since midnight order has been placed in anticipation of possible transesophageal echocardiogram tomorrow. Neurology Patient is intubated, so cannot perform full neuro exam. He was unarousable with sternal rub at Ativan running at 1mg/hr, so Ativan drip was discontinued, and a STAT CT head and chest was done, which did not reveal any new information. Ativan since then has been discontinued. -Will await his arousal and response. Weaning off ventillator would be easier this way. DVT prophylaxis with heparin TID CODE STATUS: Full code Problem List: 1. Sepsis 2. MODS (multiple organ dysfunction syndrome) 3. NSTEMI (non-ST elevated myocardial infarction) 4. ARDS (adult respiratory distress syndrome) 5. CAD (coronary artery disease) 6. PVD (peripheral vascular disease) with claudication Pain Ratin Tomorrow's Labs & Rationales: ICU bundle, CBC, CXR, ABG Plan DVT/Prophylaxis: pharmacological
--- NOTE | 2016-12-24 08:14 | RADIOLOGY REPORT ---
EXAMINATION: XR PORTABLE CHEST CLINICAL INFORMATION: Confirm ET tube placement. Intubated. Improving ARDS. COMPARISON: 12/23/2016 TECHNIQUE: Portable AP view of the chest was obtained. FINDINGS: ET tube terminates 3.9 cm from the kim. EKG leads overlie the chest. Sternal wires, CABG markers, and surgical clips also overlie the chest. Patient is rotated to the left with a leftward tilt. Small bilateral pleural effusions and associated lower lobe airspace disease are again noted. Appearance is unchanged from prior. Mild interstitial edema is again noted. Pulmonary vasculature is unremarkable. Degenerative disc disease is present in the thoracic spine. 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 IMPRESSION: 1. Appropriate positioning of the ET tube. 2. Bibasilar consolidation (left greater than right) and associated small effusions appear unchanged as compared to prior. 3. Mild interstitial edema, unchanged.
--- NOTE | 2016-12-24 10:05 | PN- Cardiology ---
Subjective Subjective: The patient remains intubated and sedated but with normal vital signs. He is afebrile. The last positive blood culture was on December 18. Objective Vital Signs and I&Os Vital Signs Date Time Temp Pulse Resp B/P Pulse O2 O2 Flow FiO2 Ox Delivery Rate 12/24 0933 35 12/24 0800 96 Ventilator 35% 12/24 0545 35 12/24 0400 95 Ventilator 35% 12/24 0304 35 12/24 0027 35 12/23 2356 95 Ventilator 35% 12/23 2356 99.1 66 16 136/58 95 Ventilator 35% 12/23 2310 69 133/56 12/23 2234 35 12/23 2000 97 Ventilator 35% 12/23 1900 35 12/23 1610 35 12/23 1600 96 Ventilator 35% 12/23 1600 97.9 65 19 116/68 96 Ventilator 35% 12/23 1200 96 Ventilator 35% 12/23 1053 35 12/23 1025 97.7 66 20 136/55 Intake & Output 12/24 1600 12/24 0800 12/24 0000 12/23 1600 12/23 0800 12/23 0000 Intake Total 300 928 768 606 803 Output Total 420 520 768 340 395 Balance -120 408 0 266 408 Intake, IV 80 60 50 60 Intake, Oral 0 Intake, Other 40 60 20 Intake, Tube 70 588 528 421 523 Feeding Intake, Tube 110 220 220 135 220 Irrigant Number 0 2 0 0 Bowel Movements Output, Urine 420 520 768 340 395 Physical Exam: He is intubated and sedated. HEENT exam is unremarkable Chest reveals aeration bilaterally Heart is regular with no murmurs Extremities no edema Current Medications: Current Medications Sig/Damon Start time Last Medication Dose Route Stop Time Status Admin Acetaminophen 1,000 MG Q6P PRN 12/18 2144 AC 12/18 N/A 1 UNIT IV 2144 Acetaminophen 650 MG Q6P PRN 12/16 0015 AC 12/16 PO 2040 Aspirin 81 MG DAILY 12/16 1000 AC 12/23 PO 1025 Atorvastatin Calcium 40 MG 1700 12/16 1700 AC 12/23 PO 1633 Carvedilol 6.25 MG BID 12/18 2200 AC 12/23 PO 2310 Cefazolin Sodium 2 GM IQ8 12/22 0000 AC 12/24 N/A 1 UNIT IV 0923 Clopidogrel Bisulfate 75 MG DAILY 12/16 1000 AC 12/23 PO 1025 Furosemide 20 MG ONCE ONE 12/23 1200 DC 12/23 IV 12/23 1201 1210 Heparin Sodium 5,000 UNIT Q8 12/19 1400 AC 12/24 (Porcine) SC 0656 Insulin Aspart 0 Q6 12/20 2002 AC 12/23 SC 2312 Pantoprazole Sodium 40 MG DAILY 12/18 1000 AC 12/23 IV 1025 Polyethylene Glycol 17 GM DAILY PRN 12/16 1015 AC PO Results Last 48 Hrs of Labs/Mics: Laboratory Tests 12/24/16 0440: Anion Gap 7, Estimated GFR > 60, Glucose 179 H, Calcium 7.9 L, Phosphorus 4.5, Magnesium 2.0, Total Bilirubin 0.6, AST 147 H, ALT 241 H, Albumin 2.3 L, CBC w Diff MAN DIFF ORDERED, RBC 3.42 L, MCV 90.8, MCH 30.9, RDW 14.2, MPV 10.4, Gran % 83.7 H, Lymphocytes % 7.3 L, Monocytes % 7.5, Eosinophils % 1.4, Basophils % 0.1, Absolute Granulocytes 8.6 H, Absolute Lymphocytes 0.8 L, Absolute Monocytes 0.8 H, Absolute Eosinophils 0.1, Absolute Basophils 0, Platelet Estimate ADEQUATE, Polychromasia 1+, PUBS MCHC 34.1 12/23/16 0610: pH 7.49 H, pCO2 34 L, pO2 75 L, HCO3 25, ABG O2 Sat (Measured) 95.0 L, P-50 (Temp Corrected) N, Carboxyhemoglobin 0.8 L, O2 Concentration % .35, Respiration Rate 16, O2 Delivery Method VENT, Vent Mode A/C, Expiratory Pressure 5, Tidal Volume 480, Phlebotomy Draw Site RIGHT RADIAL 12/23/16 8373: Anion Gap 7, Estimated GFR > 60, Glucose 217 H, Calcium 8.2 L, Phosphorus 4.1, Magnesium 2.1, Total Bilirubin 0.6, AST 193 H, ALT 337 H, Albumin 2.4 L, CBC w Diff NO MAN DIFF REQ, RBC 3.57 L, MCV 91.3, MCH 30.5, RDW 14.4, MPV 10.7 H, Gran % 79.8 H, Lymphocytes % 8.3 L, Monocytes % 10.5 H, Eosinophils % 1.4, Basophils % 0 L, Absolute Granulocytes 7.8 H, Absolute Lymphocytes 0.8 L, Absolute Monocytes 1.0 H, Absolute Eosinophils 0.1, Absolute Basophils 0, PUBS MCHC 33.3 Assessment/Plan Assessment/Plan The patient is relatively stable. His respiratory status is improved and he is nearly ready for extubation according to pulmonology. Labs are improving including liver function tests and renal function. The patient will require transesophageal echocardiogram. This will enable us to look again at his LV function and also determine whether there is any infection of his cardiac valves, Which will determine length of antibiotic therapy. I will try and set this up for tomorrow. Continue telemetry? Not applicable
--- NOTE | 2016-12-24 10:22 | PN- CRCU ---
Subjective HPI/Critical Care Issues: pt seen and examined more arousable still lethargic mechanically ventilated ros unobtainable Objective Current Medications: Current Medications Sig/Damon Start time Last Medication Dose Route Stop Time Status Admin Acetaminophen 1,000 MG Q6P PRN 12/18 2145 AC 12/18 N/A 1 UNIT IV 2144 Acetaminophen 650 MG Q6P PRN 12/16 0015 AC 12/16 PO 2040 Aspirin 81 MG DAILY 12/16 1000 AC 12/23 PO 1025 Atorvastatin Calcium 40 MG 1700 12/16 1700 AC 12/23 PO 1633 Carvedilol 6.25 MG BID 12/18 2200 AC 12/23 PO 2310 Cefazolin Sodium 2 GM IQ8 12/22 0000 AC 12/24 N/A 1 UNIT IV 0923 Clopidogrel Bisulfate 75 MG DAILY 12/16 1000 AC 12/23 PO 1025 Furosemide 20 MG ONCE ONE 12/23 1200 DC 12/23 IV 12/23 1201 1210 Heparin Sodium 5,000 UNIT Q8 12/19 1400 AC 12/24 (Porcine) SC 0656 Insulin Aspart 0 Q6 12/20 2002 AC 12/23 SC 2312 Pantoprazole Sodium 40 MG DAILY 12/18 1000 AC 12/23 IV 1025 Polyethylene Glycol 17 GM DAILY PRN 12/16 1015 AC PO Vital Signs & I&O Last 24 Hrs of Vitals and I&O: Vital Signs Date Time Temp Pulse Resp B/P Pulse O2 O2 Flow FiO2 Ox Delivery Rate 12/24 0933 35 12/24 0800 96 Ventilator 35% 12/24 0545 35 12/24 0400 95 Ventilator 35% 12/24 0304 35 12/24 0027 35 12/23 2356 95 Ventilator 35% 12/23 2356 99.1 66 16 136/58 95 Ventilator 35% 12/23 2310 69 133/56 12/23 2234 35 12/23 2000 97 Ventilator 35% 12/23 1900 35 12/23 1610 35 12/23 1600 96 Ventilator 35% 12/23 1600 97.9 65 19 116/68 96 Ventilator 35% 12/23 1200 96 Ventilator 35% 12/23 1053 35 12/23 1025 97.7 66 20 136/55 Intake & Output 12/24 1600 12/24 0800 12/24 0000 Intake Total 300 928 Output Total 420 520 Balance -120 408 Intake, IV 80 60 Intake, Oral 0 Intake, Other 40 60 Intake, Tube 70 588 Feeding Intake, Tube 110 220 Irrigant Number 0 2 Bowel Movements Output, Urine 420 520 Exam Other Physical Findings: gen sedated, intubated heent ett cvs s1, s2 lungs transmitted abd soft, bs+ ext no edema Results Last 24 Hrs of Lab Results: Laboratory Tests 12/24/16 0440: Anion Gap 7, Estimated GFR > 60, Glucose 179 H, Calcium 7.9 L, Phosphorus 4.5, Magnesium 2.0, Total Bilirubin 0.6, AST 147 H, ALT 241 H, Albumin 2.3 L, CBC w Diff MAN DIFF ORDERED, RBC 3.42 L, MCV 90.8, MCH 30.9, RDW 14.2, MPV 10.4, Gran % 83.7 H, Lymphocytes % 7.3 L, Monocytes % 7.5, Eosinophils % 1.4, Basophils % 0.1, Absolute Granulocytes 8.6 H, Absolute Lymphocytes 0.8 L, Absolute Monocytes 0.8 H, Absolute Eosinophils 0.1, Absolute Basophils 0, Platelet Estimate ADEQUATE, Polychromasia 1+, PUBS MCHC 34.1 Impression/Plan Impression/Plan Impression/Plan: Impression 76 year old man -resolving ARDS, now mild, p/f ratio is 240 -nstemi, systolic heart failure -staph aureus bacteremia -IMPROVING multi-organ dysfunction syndrome - MODS Plan Respiratory -mechanical ventilation -PEEP at 5 -goal spo2 88-92% -plan for sbt after GEORGI ID -ID appreciated -Cefazolin for S. Aureus sensitive to Oxacillin -GEORGI recommended will d/w cardiology CVS -f/u cardiology recommendations -EF worsened, limited per cardiology Heme -montior h/h, coags Metabolic -ins/outs -monitor electrolytes Alimentary -tube feeds Neuro -off ativan, CT head without acute pathology DVT prophylaxis at all times TTS 35 min
--- NOTE | 2016-12-24 11:57 | PN- Infect Dx ---
Subjective Subjective: Afebrile. He is more arousable. Objective Last 24 Hrs of Vital Signs/I&O Vital Signs Date Time Temp Pulse Resp B/P Pulse O2 O2 Flow FiO2 Ox Delivery Rate 12/24 1056 98.6 70 18 149/68 12/24 0933 35 12/24 0800 96 Ventilator 35% 12/24 0545 35 12/24 0400 95 Ventilator 35% 12/24 0304 35 12/24 0027 35 12/23 2356 95 Ventilator 35% 12/23 2356 99.1 66 16 136/58 95 Ventilator 35% 12/23 2310 69 133/56 12/23 2234 35 12/23 2000 97 Ventilator 35% 12/23 1900 35 12/23 1610 35 12/23 1600 96 Ventilator 35% 12/23 1600 97.9 65 19 116/68 96 Ventilator 35% 12/23 1200 96 Ventilator 35% Intake & Output 12/24 1600 12/24 0800 12/24 0000 Intake Total 300 928 Output Total 420 520 Balance -120 408 Intake, IV 80 60 Intake, Oral 0 Intake, Other 40 60 Intake, Tube 70 588 Feeding Intake, Tube 110 220 Irrigant Number 0 2 Bowel Movements Output, Urine 420 520 Physical Exam Other Physical Findings: He is responsive to pain but not to voice Lungs are clear Heart regular rhythm with no murmur Abdomen is soft, nontender with positive bowel sounds Extremities no cyanosis, clubbing or edema Results Last 24 Hours of Lab Results: Laboratory Tests 12/24 0440 Chemistry Sodium (137 - 145 mmol/L) 144 Potassium (3.5 - 5.1 mmol/L) 4.6 Chloride (98 - 107 mmol/L) 106 Carbon Dioxide (22 - 30 mmol/L) 31 H Anion Gap (5 - 16) 7 BUN (9 - 20 mg/dL) 24 H Creatinine (0.7 - 1.2 mg/dL) 0.6 L Estimated GFR (>60 ml/min) > 60 Glucose (65 - 99 mg/dL) 179 H Calcium (8.4 - 10.2 mg/dL) 7.9 L Phosphorus (2.5 - 4.5 mg/dL) 4.5 Magnesium (1.6 - 2.3 mg/dL) 2.0 Total Bilirubin (0.2 - 1.3 mg/dL) 0.6 AST (17 - 59 U/L) 147 H ALT (21 - 72 U/L) 241 H Albumin (3.5 - 5.0 g/dL) 2.3 L Hematology CBC w Diff MAN DIFF ORDERED WBC (4.8 - 10.8 /CUMM) 10.3 RBC (4.70 - 6.10 /CUMM) 3.42 L Hgb (14.0 - 18.0 G/DL) 10.6 L Hct (42 - 52 %) 31.1 L MCV (80.0 - 94.0 FL) 90.8 MCH (27.0 - 31.0 PG) 30.9 RDW (11.5 - 14.5 %) 14.2 Plt Count (130 - 400 /CUMM) 223 MPV (7.4 - 10.4 FL) 10.4 Gran % (42.2 - 75.2 %) 83.7 H Lymphocytes % (20.5 - 51.1 %) 7.3 L Monocytes % (1.7 - 9.3 %) 7.5 Eosinophils % (0 - 5 %) 1.4 Basophils % (0.0 - 2.0 %) 0.1 Absolute Granulocytes (1.4 - 6.5 /CUMM) 8.6 H Absolute Lymphocytes (1.2 - 3.4 /CUMM) 0.8 L Absolute Monocytes (0.10 - 0.60 /CUMM) 0.8 H Absolute Eosinophils (0.0 - 0.7 /CUMM) 0.1 Absolute Basophils (0.0 - 0.2 /CUMM) 0 Platelet Estimate (ADEQUATE) ADEQUATE Polychromasia 1+ PUBS MCHC (33.0 - 37.0 G/DL) 34.1 Last 24 Hours of Evens Results: Blood cultures 2 December 20 remain negative Recent Imaging Studies: Chest x-ray December 24, personally reviewed, reveals bibasilar densities without significant change from previous study Assessment/Plan Impression: Overall status continues to improve on Cefazolin now Day 9 of treatment for Staph aureus sepsis presumably secondary to pneumonia with temperatures and white blood cell count remaining normal and with most recent blood cultures, sent 4 days ago, remaiing negative. His renal function has normalized and his liver enzymes continue to decrease. GEORGI is apparently tentatively scheduled for the a.m. and may be helpful in determining the optimal duration of his therapy, though, with repeat blood cultures from 3 days after admission still positive, he may benefit from a four-week course of antibiotics. Suggestion: 1. Await possible GEORGI in the a.m. 2. Continue Cefazolin
[2016-12-24 16:00] VITALS: BP 116/58
[2016-12-25] VITALS: BP 140/50
--- NOTE | 2016-12-25 01:07 | NUR ---
PT AROUSABLE, SLEEPY MOST OF THE TIME. INTUBATED AT 35% FIO2, SATURATION 92%. LUNGS SOUND CLEAR. TF ON HOLD, FOR GEORGI IN AM. ABDOMEN SOFT, NORMOACTIVE BS. MANUAL BP 140/50, NSR 60'S. MCNEILL IN PLACE, ADEQUATE UO AT THIS TIME.
[2016-12-25 05:53] LABS: ABSOLUTE BASOPHIL COUNT 0 /CUMM (0.0-0.2); ABSOLUTE EOSINOPHIL COUNT 0.1 /CUMM (0.0-0.7); ABSOLUTE GRANULOCYTE CT 9.2 /CUMM (1.4-6.5); ABSOLUTE LYMPH COUNT 0.8 /CUMM (1.2-3.4); ABSOLUTE MONOCYTE COUNT 0.9 /CUMM (0.10-0.60); BASOPHIL % 0.1 % (0.0-2.0); EOSINOPHIL % 0.5 % (0-5); HEMATOCRIT 31.5 % (42-52); MEAN CORPUSCULAR HGB 30.2 PG (27.0-31.0); MEAN CORPUSCULAR HGB CONC 33.2 G/DL (33.0-37.0); MEAN CORPUSCULAR VOLUME 90.9 FL (80.0-94.0); MEAN PLATELET VOLUME 10.9 FL (7.4-10.4); PLATELET COUNT 225 /CUMM (130-400); RBC DISTRIBUTION WIDTH 14.1 % (11.5-14.5); RED BLOOD CELL CT 3.47 /CUMM (4.70-6.10); WHITE BLOOD CELL COUNT 10.9 /CUMM (4.8-10.8)
--- NOTE | 2016-12-25 07:09 | PN- Resident CRCU ---
Subjective HPI/CRCU Issues: I followed up and examined the patient today. He is intubated, alert, seems to comprehend as I spoke to him about his condition, and is comfortable/not in any apparent distress. No issues overnight, vitals have been stable overnight. Objective Vital Signs & I&O Last 8 Hrs of Vitals and I&O: Vital Signs Date Time Temp Pulse Resp B/P Pulse O2 O2 Flow FiO2 Ox Delivery Rate 12/25 1146 35 12/25 0921 76 178/81 12/25 0847 35 12/25 08 98.4 74 16 148/58 96 Ventilator 35% 12/25 08 96 Ventilator 35% 12/25 06 35 Exam General Appearance: well developed/nourished, no apparent distress, alert, awake , comfortable, intubated Other Physical Findings: Head: Normocephalic, atraumatic Eyes: Pupils normal in size, regular, reacting to light Nose: Normal on inspection Neck: Supple, full range of motion, no thyromegaly Heart: regular rhythm Lung: Intubated, minimal crackles heard bilaterally, no wheeze Abd: Soft, non-tender, no distention appreciated, Cates in situ Extremities: no change, some swelling present over b/l hands, no redness Neuro: Normal reflex b/l Skin: Warm and dry Weaning Parameters NIF: 35 Minute Volume: 8.19 Resp rate: 22 Vt: 370 Heart Rate: 72 Weaning Schedule Start Time: 1840 Minute Volume: 9.03 Resp Rate: 21 Vt: 430 Heart Rate: 72 End Time: 2115 Minute Volume: 8.52 Resp Rate: 23 Vt: 370 Heart Rate: 71 Cates Site: urethral Nutrition Nutrition: tube feeding, was on hold since midnight for GEORGI this AM Current Medications: Current Medications Sig/Damon Start time Last Medication Dose Route Stop Time Status Admin Acetaminophen 1,000 MG Q6P PRN 12/18 2145 AC 12/18 N/A 1 UNIT IV 2143 Acetaminophen 650 MG Q6P PRN 12/16 0015 AC 12/16 PO 2040 Aspirin 81 MG DAILY 12/16 1000 AC 12/25 PO 0921 Atorvastatin Calcium 40 MG 1700 12/16 1700 AC 12/24 PO 1618 Carvedilol 6.25 MG BID 12/18 2200 AC 12/25 PO 0921 Cefazolin Sodium 2 GM IQ8 12/22 0000 AC 12/25 N/A 1 UNIT IV 0900 Clopidogrel Bisulfate 75 MG DAILY 12/16 1000 AC 12/25 PO 0921 Dextrose/Sodium 1,000 ML Q20H 12/25 0900 AC Chloride IV Furosemide 20 MG ONCE ONE 12/25 0915 DC 12/25 IV 12/25 0916 0921 Heparin Sodium 5,000 UNIT Q8 12/19 1400 AC 12/25 (Porcine) SC 0605 Insulin Aspart 0 Q6 12/20 2002 AC 12/24 SC 1844 Pantoprazole Sodium 40 MG DAILY 12/18 1000 AC 12/25 IV 0921 Polyethylene Glycol 17 GM DAILY PRN 12/16 1015 AC PO CXR Findings: IMPRESSION: 1. ET tube in satisfactory position at 4.5 cm above the kim. 2. No appreciable change in left basilar consolidation and small left pleural effusion. DICTATED BY: LORENZA DURAN MD DATE/TIME DICTATED:12/25/16800 LINK KNITTING MACHINE OPERATOR:VANESSA DATE/TIME TRANSCRIBED:12/25/16800 Impression/Plan Impression/Problem List Impression: 68-year-old male with past medical history significant for hypertension, hyperlipidemia, peripheral vascular disease, bladder cancer diagnosed over one year ago, oral HSV, CAD with a triple bypass in 1993, who has all his routine medical care at the [facility], who presents with chief complaint of lower extremity weakness, fever, chills for 20 after having a vascular procedure at the [facility] a day prior to that. 68-year-old male with past medical history significant for hypertension, hyperlipidemia, peripheral vascular disease, bladder cancer diagnosed over one year ago, oral HSV, CAD with a triple bypass in 1993, who has all his routine medical care at the [facility], who presented with chief complaint of lower extremity weakness, fever, chills. He is being managed in the ICU for the following issues: Multiorgan failure syndrome, improving During the course of his ICU stay, many of his organ systems were affected. * His respiratory status deteriorated and he was intubated. He is doing well in vent weaning. * His troponin was persistently elevated, possibly due to severe sepsis, and demand, but NSTEMI is the most likely pathology. His last troponin was 10.40, down from the peak of 40. Resolved. * His blood pressure went low severely, to the point requiring norepinephrine, but has been stable since 12/18/16 morning. * His kidney functions had deteriorated to creatinine 2.2, but is better today at 0.7. * His liver enzymes were elevated too, but is lower today. * His condition updated to his /daughter, who understand the seriousness of his situation. * Dr Lindsey from [facility] had contacted two times, last call on 12/24/16, requesting update about the patient's condition. With family's permission, he was updated about patient's condition and improving situation. He was also told that the patient is still in the intensive care unit and requires ICU level care. Respiratory Acute respiratory distress syndrome, improving * Patient is currently intubated, tolerating the ventilation weaning well. Saturation is maintained above 90%, now at PEEP 5 with FiO2 35%, is alert, oriented, following instructions, not on pressors. Plan to extubate him today after GEORGI. * Patient is being treated for acute respiratory distress syndrome, can be characterized as having moderate ARDS, now mild ARDS * Continuing Cefazolin as Staph aureus is found to be sensitive to cephalosporin #Weaning episode today: Patient had multiple VPCs as soon as weaning was started today at 1345hrs. He was alert, asymptomatic, and vitals were stable at theat time. Discussed with resident Dr Wyatt and attending Dr Pretty, who suggested to hold weaning and try it in few hours. Patient and his were explained about the event and they agreed to the plan. Infectious disease Sepsis, possibly secondary to pneumonia * Continuing Cefazolin as Staph aureus is found to be sensitive to cephalosporin * Today is day 5 of last blood culture that has remained negative. Previous sets of blood cultures were positive for Staph aureus. * GEORGI done. negative for vegetations. * Will possibly not require PICC line, as the duration of abx therapy woud be shorter than for endocarditis. Cardiovascular system Patient's repeat echo shows ejection fraction of 25% from 45% with wall motion abnormalities that appears to be chronic. His troponin was persistently elevated, possibly due to severe sepsis, and demand, but NSTEMI is the most likely pathology. His troponin is 10.40, down from the peak of 40. * Records obtained from [facility] shows that he received lower extremity angiogram, accessed via RIGHT side, with balloon ingioplasty on LEFT superficial femoral artery, and was later sealed via angioseal. Confirmed this detail with the cardiovascular physician Dr Burak Lindsey from [facility] (direct cell number [phone]) on 12/20/16 morning. * Check X-ray of the area did not show any radio-opaque foreign body. On palpation, nothing abnormal felt. * No more checking EKG and trending troponins per Dr Jimenez (computer systems security administrator). * GEORIG done today 12/25/16 is negative for vegetations. However, Dr Jimenez suggests getting repeat TTE in 1-2 days time to follow up on LV function. Hematology * SQ heparin TID for DVT ppx only Metabolic - Continue to follow chemistries and repeat electrolytes accordingly. - Insulin NovoLog sliding scale running as the patient has tube feeding and is diabetic. Alimentary * Tube feeding on hold since midnight for GEORGI. Now awaitign possible extubation. Neurology Patient is intubated, so cannot perform full neuro exam. He is alert, oriented, and responsive to instructions. No issues. DVT prophylaxis with heparin TID CODE STATUS: Full code Problem List: 1. Sepsis 2. MODS (multiple organ dysfunction syndrome) 3. NSTEMI (non-ST elevated myocardial infarction) 4. ARDS (adult respiratory distress syndrome) 5. CAD (coronary artery disease) 6. PVD (peripheral vascular disease) with claudication Pain Ratin Tomorrow's Labs & Rationales: ICU lab bundle, CBC CXR is he is still intubated Plan DVT/Prophylaxis: pharmacological
[2016-12-25 08:00] VITALS: BP 148/58
--- NOTE | 2016-12-25 08:08 | RADIOLOGY REPORT ---
EXAMINATION: XR PORTABLE CHEST CLINICAL INFORMATION: Evaluate progression of ARDS and confirm ET tube placement. COMPARISON: CXR from 12/24/2016 TECHNIQUE: Portable AP view of the chest was obtained. FINDINGS: The tip of the endotracheal tube is in satisfactory position at 4.5 cm above the kim. Enteric tube extends below the diaphragm and into the stomach, beyond the [id number]. Patient is slightly rotated to the left. No significant change in left basilar consolidation and small left pleural effusion. There is persistent hazy opacity in the mid to lower right lung zone, likely representing layering of a small pleural effusion along with mild basilar atelectasis. No acute skeletal findings. IMPRESSION: 1. ET tube in satisfactory position at 4.5 cm above the kim. 2. No appreciable change in left basilar consolidation and small left pleural effusion.
--- NOTE | 2016-12-25 10:47 | PN- CRCU ---
Subjective HPI/Critical Care Issues: pt seen and examined awaiting GEORGI arousable follows commands no pain Objective Current Medications: Current Medications Sig/Damon Start time Last Medication Dose Route Stop Time Status Admin Acetaminophen 1,000 MG Q6P PRN 12/18 2145 AC 12/18 N/A 1 UNIT IV 2144 Acetaminophen 650 MG Q6P PRN 12/16 0015 AC 12/16 PO 2040 Aspirin 81 MG DAILY 12/16 1000 AC 12/25 PO 0921 Atorvastatin Calcium 40 MG 1700 12/16 1700 AC 12/24 PO 1618 Carvedilol 6.25 MG BID 12/18 2200 AC 12/25 PO 0921 Cefazolin Sodium 2 GM IQ8 12/22 0000 AC 12/25 N/A 1 UNIT IV 0900 Clopidogrel Bisulfate 75 MG DAILY 12/16 1000 AC 12/25 PO 0921 Dextrose/Sodium 1,000 ML Q20H 12/25 0900 AC Chloride IV Furosemide 20 MG ONCE ONE 12/25 0915 DC 12/25 IV 12/25 0916 0921 Heparin Sodium 5,000 UNIT Q8 12/19 1400 AC 12/25 (Porcine) SC 0605 Insulin Aspart 0 Q6 12/20 2003 AC 12/24 SC 1844 Pantoprazole Sodium 40 MG DAILY 12/18 1000 AC 12/25 IV 0921 Polyethylene Glycol 17 GM DAILY PRN 12/16 1015 AC PO Vital Signs & I&O Last 24 Hrs of Vitals and I&O: Vital Signs Date Time Temp Pulse Resp B/P Pulse O2 O2 Flow FiO2 Ox Delivery Rate 12/25 0921 76 178/81 12/25 0847 35 12/25 0600 35 12/25 0400 93 Ventilator 35% 12/25 0312 35 12/25 0040 35 12/25 0000 92 Ventilator 35% 12/25 0000 98.2 69 10 140/50 92 Ventilator 25% 12/24 2228 35 12/24 2113 98.8 76 18 142/59 12/24 2000 95 Ventilator 35% 12/24 1620 35 12/24 1600 95 Ventilator 35% 12/24 1600 98.9 62 16 116/58 95 Ventilator 35% 12/24 1502 35 12/24 1312 35 12/24 1200 96 Ventilator 35% 12/24 1056 98.6 70 18 149/68 Intake & Output 12/25 1600 12/25 0800 12/25 0000 Intake Total 398 Output Total 375 400 Balance -375 -2 Intake, IV 100 Intake, Other 220 Intake, Tube 78 Feeding Output, Urine 375 400 Exam Other Physical Findings: gen awake, intubated heent ett cvs s1, s2 lungs transmitted abd soft, bs+ ext no edema Results Last 24 Hrs of Lab Results: Laboratory Tests 12/25/16 0400: Anion Gap 9, Estimated GFR > 60, Glucose 142 H, Calcium 8.0 L, Phosphorus 4.0, Magnesium 2.1, Total Bilirubin 0.9, AST 72 H, ALT 152 H, Albumin 2.3 L, CBC w Diff MAN DIFF ORDERED, RBC 3.47 L, MCV 90.9, MCH 30.2, RDW 14.1, MPV 10.9 H, Gran % 84.0 H, Lymphocytes % 6.9 L, Monocytes % 8.5, Eosinophils % 0.5, Basophils % 0.1, Absolute Granulocytes 9.2 H, Absolute Lymphocytes 0.8 L, Absolute Monocytes 0.9 H, Absolute Eosinophils 0.1, Absolute Basophils 0, Platelet Estimate ADEQUATE, Polychromasia 2+, PUBS MCHC 33.2 Impression/Plan Impression/Plan Impression/Plan: Impression 76 year old man -resolving ARDS, now mild, p/f ratio is 240 -nstemi, systolic heart failure -staph aureus bacteremia -IMPROVING multi-organ dysfunction syndrome - MODS Plan Respiratory -mechanical ventilation -goal spo2 88-92% -plan for sbt after GEORGI ID -ID appreciated -Cefazolin for S. Aureus sensitive to Oxacillin -GEORGI recommended will d/w cardiology CVS -f/u cardiology recommendations Heme -montior h/h, coags Metabolic -ins/outs -monitor electrolytes Alimentary -tube feeds Neuro -off ativan, CT head without acute pathology DVT prophylaxis at all times TTS 35 min
--- NOTE | 2016-12-25 10:53 | PN- Infect Dx ---
Subjective Subjective: Afebrile without complaints Objective Last 24 Hrs of Vital Signs/I&O Vital Signs Date Time Temp Pulse Resp B/P Pulse O2 O2 Flow FiO2 Ox Delivery Rate 12/25 0921 76 178/81 12/25 0847 35 12/25 0600 35 12/25 0400 93 Ventilator 35% 12/25 0312 35 12/25 0040 35 12/25 0000 92 Ventilator 35% 12/25 0000 98.2 69 10 140/50 92 Ventilator 25% 12/24 2228 35 12/24 2113 98.8 76 18 142/59 12/24 2000 95 Ventilator 35% 12/24 1620 35 12/24 1600 95 Ventilator 35% 12/24 1600 98.9 62 16 116/58 95 Ventilator 35% 12/24 1502 35 12/24 1312 12/24 1200 96 Ventilator 35% 12/24 1056 98.6 70 18 149/68 Intake & Output 12/25 1600 12/25 0800 12/25 0000 Intake Total 398 Output Total 375 400 Balance -375 -2 Intake, IV 100 Intake, Other 220 Intake, Tube 78 Feeding Output, Urine 375 400 Physical Exam Other Physical Findings: He is awake and alert on the ventilator Lungs are clear Heart regular rhythm with no murmur Extremities no cyanosis, clubbing or edema Cates catheter remains in place Results Last 24 Hours of Lab Results: Laboratory Tests 12/25 399 Chemistry Sodium (137 - 145 mmol/L) 144 Potassium (3.5 - 5.1 mmol/L) 4.1 Chloride (98 - 107 mmol/L) 107 Carbon Dioxide (22 - 30 mmol/L) 28 Anion Gap (5 - 16) 9 BUN (9 - 20 mg/dL) 26 H Creatinine (0.7 - 1.2 mg/dL) 0.7 Estimated GFR (>60 ml/min) > 60 Glucose (65 - 99 mg/dL) 142 H Calcium (8.4 - 10.2 mg/dL) 8.0 L Phosphorus (2.5 - 4.5 mg/dL) 4.0 Magnesium (1.6 - 2.3 mg/dL) 2.1 Total Bilirubin (0.2 - 1.3 mg/dL) 0.9 AST (17 - 59 U/L) 72 H ALT (21 - 72 U/L) 152 H Albumin (3.5 - 5.0 g/dL) 2.3 L Hematology CBC w Diff MAN DIFF ORDERED WBC (4.8 - 10.8 /CUMM) 10.9 H RBC (4.70 - 6.10 /CUMM) 3.47 L Hgb (14.0 - 18.0 G/DL) 10.5 L Hct (42 - 52 %) 31.5 L MCV (80.0 - 94.0 FL) 90.9 MCH (27.0 - 31.0 PG) 30.2 RDW (11.5 - 14.5 %) 14.1 Plt Count (130 - 400 /CUMM) 225 MPV (7.4 - 10.4 FL) 10.9 H Gran % (42.2 - 75.2 %) 84.0 H Lymphocytes % (20.5 - 51.1 %) 6.9 L Monocytes % (1.7 - 9.3 %) 8.5 Eosinophils % (0 - 5 %) 0.5 Basophils % (0.0 - 2.0 %) 0.1 Absolute Granulocytes (1.4 - 6.5 /CUMM) 9.2 H Absolute Lymphocytes (1.2 - 3.4 /CUMM) 0.8 L Absolute Monocytes (0.10 - 0.60 /CUMM) 0.9 H Absolute Eosinophils (0.0 - 0.7 /CUMM) 0.1 Absolute Basophils (0.0 - 0.2 /CUMM) 0 Platelet Estimate (ADEQUATE) ADEQUATE Polychromasia 2+ PUBS MCHC (33.0 - 37.0 G/DL) 33.2 Last 24 Hours of Evens Results: Blood cultures 2 December 20 remain negative Recent Imaging Studies: Chest x-ray December 25, personally reviewed, reveals no change in the left basilar density and small left pleural effusion with persistent opacity in the right mid to lower lung Assessment/Plan Impression: Overall status continues to improve on Cefazolin now Day 10 of treatment for Staph aureus sepsis presumably secondary to pneumonia with temperatures and white blood cell count remaining normal and with most recent blood cultures, sent 5 days ago, remaiing negative. His renal function has normalized and his liver enzymes continue to decrease. GEORGI is apparently tentatively scheduled for this a.m. and may be helpful in determining the optimal duration of his therapy. Suggestion: 1. Await possible GEORGI later this morning 2. Continue Cefazolin
--- NOTE | 2016-12-25 11:51 | Proc Note Cardiology ---
Cardiology Procedure Procedure Date: 12/25/16 Pre-Operative Diagnosis: Sepsis, rule out endocarditis Post-Operative Diagnosis: No evidence of valvular vegetations Estimated Blood Loss: n/a Anesthesia: local monitored anesthesi Procedure Findings: The patient is a 76-year-old male with staph sepsis. GEORGI was requested for question of valvular vegetation/endocarditis. The patient was intubated. His OG tube was removed. He was sedated by anesthesia provider. Transesophageal probe was placed in the esophagus with no difficulty and full imaging took place. There were no complications.
--- NOTE | 2016-12-25 11:54 | PN- Cardiology ---
Subjective Subjective: The patient remains intubated but he is going to be extubated soon. His blood pressure is maintained off of pressors. He remains in sinus rhythm. He is hemodynamically stable. A transesophageal echocardiogram was performed to rule out endocarditis, which was negative for vegetations. LV function looked improved compared to the last transthoracic echo. Objective Vital Signs and I&Os Vital Signs Date Time Temp Pulse Resp B/P Pulse O2 O2 Flow FiO2 Ox Delivery Rate 12/25 0921 76 178/81 12/25 0847 35 12/25 0800 98.4 74 16 148/58 96 Ventilator 35% 12/25 0800 96 Ventilator 35% 12/25 0600 35 12/25 0400 93 Ventilator 35% 12/25 0312 35 12/25 0040 35 12/25 0000 92 Ventilator 35% 12/25 0000 98.2 69 10 140/50 92 Ventilator 25% 12/24 2228 35 12/24 2113 98.8 76 18 142/59 12/24 2015 35 12/24 2000 95 Ventilator 35% 12/24 1620 35 12/24 1600 95 Ventilator 35% 12/24 1600 98.9 62 16 116/58 95 Ventilator 35% 12/24 1502 35 12/24 1312 35 12/24 1200 96 Ventilator 35% Intake & Output 12/25 1600 12/25 0800 12/25 0000 12/24 1600 12/24 0800 12/24 0000 Intake Total 398 168 300 928 Output Total 375 400 250 420 520 Balance -375 -2 -82 -120 408 Intake, IV 100 50 80 60 Intake, Oral 0 Intake, Other 220 40 60 Intake, Tube 78 8 70 588 Feeding Intake, Tube 110 110 220 Irrigant Number 0 2 Bowel Movements Output, Urine 375 400 250 420 520 Physical Exam: On physical he is sedated and intubated HEENT exam normal Chest aerating well Heart regular rhythm no murmurs Extremities no edema Current Medications: Current Medications Sig/Damon Start time Last Medication Dose Route Stop Time Status Admin Acetaminophen 1,000 MG Q6P PRN 12/18 2144 AC 12/18 N/A 1 UNIT IV 2143 Acetaminophen 650 MG Q6P PRN 12/16 0015 AC 12/16 PO 2040 Aspirin 81 MG DAILY 12/16 1000 AC 12/25 PO 0921 Atorvastatin Calcium 40 MG 1700 12/16 1700 AC 12/24 PO 1618 Carvedilol 6.25 MG BID 12/18 2200 AC 12/25 PO 0921 Cefazolin Sodium 2 GM IQ8 12/22 0000 AC 12/25 N/A 1 UNIT IV 09 Clopidogrel Bisulfate 75 MG DAILY 12/16 1000 AC 12/25 PO 0921 Dextrose/Sodium 1,000 ML Q20H 12/25 0900 AC Chloride IV Furosemide 20 MG ONCE ONE 12/25 0915 DC 12/25 IV 12/25 09 0921 Heparin Sodium 5,000 UNIT Q8 12/19 1400 AC 12/25 (Porcine) SC 06 Insulin Aspart 0 Q6 12/20 2002 AC 12/24 SC 1844 Pantoprazole Sodium 40 MG DAILY 12/18 1000 AC 12/25 IV 0921 Polyethylene Glycol 17 GM DAILY PRN 12/16 1015 AC PO Results Last 48 Hrs of Labs/Mics: Laboratory Tests 12/25/16 0400: Anion Gap 9, Estimated GFR > 60, Glucose 142 H, Calcium 8.0 L, Phosphorus 4.0, Magnesium 2.1, Total Bilirubin 0.9, AST 72 H, ALT 152 H, Albumin 2.3 L, CBC w Diff MAN DIFF ORDERED, RBC 3.47 L, MCV 90.9, MCH 30.2, RDW 14.1, MPV 10.9 H, Gran % 84.0 H, Lymphocytes % 6.9 L, Monocytes % 8.5, Eosinophils % 0.5, Basophils % 0.1, Absolute Granulocytes 9.2 H, Absolute Lymphocytes 0.8 L, Absolute Monocytes 0.9 H, Absolute Eosinophils 0.1, Absolute Basophils 0, Platelet Estimate ADEQUATE, Polychromasia 2+, PUBS MCHC 33.2 12/24/16 0440: Anion Gap 7, Estimated GFR > 60, Glucose 179 H, Calcium 7.9 L, Phosphorus 4.5, Magnesium 2.0, Total Bilirubin 0.6, AST 147 H, ALT 241 H, Albumin 2.3 L, CBC w Diff MAN DIFF ORDERED, RBC 3.42 L, MCV 90.8, MCH 30.9, RDW 14.2, MPV 10.4, Gran % 83.7 H, Lymphocytes % 7.3 L, Monocytes % 7.5, Eosinophils % 1.4, Basophils % 0.1, Absolute Granulocytes 8.6 H, Absolute Lymphocytes 0.8 L, Absolute Monocytes 0.8 H, Absolute Eosinophils 0.1, Absolute Basophils 0, Platelet Estimate ADEQUATE, Polychromasia 1+, PUBS MCHC 34.1 Recent Imaging Studies: GEORGI:CONCLUSIONS Left ventricular systolic function is mild to moderately reduced. Mild left atrial dilatation. Normal left atrial appendage. Normal pulmonic vein. No evidence of shunting across the interatrial septum by color flow. The mitral valve is thickened with normal motion and no evidence of vegetations. The aortic valve shows mild thickening of the leaflets with adequate excursion. There is no evidence of valvular vegetations on the aortic valve. There is no evidence of vegetations on the tricuspid valve. There is no evidence of vegetations on the pulmonic valve. There is grade 1-2 plaquing of the descending aorta and aortic arch. Yayo Jimenez M.D. (Electronically Signed) Final Date: 25 December 2016 18:27 MEASUREMENTS (Male / Female) Normal Values DICTATED BY: YAYO JIMENEZ MD, V. DATE/TIME DICTATED:12/25/161827 GROUP EXERCISE CLASS INSTRUCTOR:VANESSA DATE/TIME TRANSCRIBED:12/25/161827 CONFIDENTIAL, DO NOT COPY WITHOUT APPROPRIATE AUTHORIZATION. <Electronically signed in Other Vendor System> SIGNED BY: YAYO JIMENEZ MD, V. 12/25/161827 Assessment/Plan Assessment/Plan The patient is relatively stable. His respiratory status is improved and he is nearly ready for extubation according to pulmonology. Labs are improving including liver function tests and renal function. The patient underwent transesophageal echocardiography successfully, which did not show any vegetations. He will be extubated today. I would like to obtain a follow-up transthoracic echocardiogram in 1-2 days to look specifically at LV function again Continue telemetry? Not applicable
[2016-12-25 16:00] VITALS: BP 130/58
--- NOTE | 2016-12-25 18:28 | ECHOCARDIOGRAM REPORT ---
CAITY BELL Age: 76 : Gender: M Exam Date: 12/25/2016 11:15 Exam Location: [facility] Ht (in): 72 Wt (lb): 152 BSA: 1.86 BP: 150 / 62 Ordering Physician: EILEEN IRAHETA MD Referring Physician: EILEEN IRAHETA MD Technologist: Todd Antony [facility] Room Number: 108 Indications: INFECTIVE ENDOCARDITIS Rhythm: Sinus Technical Quality: Good Medications Propofol administered by Anesthesiology. Ease of Transducer Insertion No Difficulty Complications None. Technical Difficulty none FINDINGS Left Ventricle Left ventricular systolic function is mild to moderately reduced. Right Ventricle Normal right ventricular size and function. Right Atrium Normal right atrial size. Left Atrium Mild left atrial dilatation. LA Appendage Normal left atrial appendage. Normal pulmonic vein. IA Septum Normal interatrial septum. No evidence of shunting across the interatrial septum by color flow. Mitral Valve The mitral valve is thickened with normal motion and no evidence of vegetations. There is mild mitral regurgitation. Aortic Valve The aortic valve shows mild thickening of the leaflets with adequate excursion. There is no evidence of valvular vegetations on the aortic valve. There is trace aortic regurgitation. Tricuspid Valve The tricuspid valve is normal. There is trace tricuspid regurgitation. There is no evidence of vegetations on the tricuspid valve. Pulmonic Valve The pulmonic valve is fairly well seen. There is no evidence of vegetations on the pulmonic valve. Pericardium No pericardial or pleural effusion. Great Vessels There is grade 1-2 plaquing of the descending aorta and aortic arch. CONCLUSIONS Left ventricular systolic function is mild to moderately reduced. Mild left atrial dilatation. Normal left atrial appendage. Normal pulmonic vein. No evidence of shunting across the interatrial septum by color flow. The mitral valve is thickened with normal motion and no evidence of vegetations. The aortic valve shows mild thickening of the leaflets with adequate excursion. There is no evidence of valvular vegetations on the aortic valve. There is no evidence of vegetations on the tricuspid valve. There is no evidence of vegetations on the pulmonic valve. There is grade 1-2 plaquing of the descending aorta and aortic arch. Eileen Iraheta M.D. (Electronically Signed) Final Date: 25 December 2016 18:27 MEASUREMENTS (Male / Female) Normal Values
--- NOTE | 2016-12-25 18:53 | RADIOLOGY REPORT ---
EXAMINATION: XR PORTABLE CHEST CLINICAL INFORMATION: NG tube placement. COMPARISON: None TECHNIQUE: Portable AP view of the chest was obtained. 6:32 PM FINDINGS: Nasogastric tube in stomach. Endotracheal tube catheter about 6 cm above the kim. Status post median sternotomy. Dense left lung base with silhouetting left diaphragm and blunting of left costophrenic angle due to consolidation/atelectasis and small left effusion. IMPRESSION: Nasogastric tube in stomach.
[2016-12-26] VITALS: BP 132/50
[2016-12-26 06:28] LABS: ABSOLUTE BASOPHIL COUNT 0 /CUMM (0.0-0.2); ABSOLUTE EOSINOPHIL COUNT 0 /CUMM (0.0-0.7); ABSOLUTE LYMPH COUNT 0.6 /CUMM (1.2-3.4); ABSOLUTE MONOCYTE COUNT 0.8 /CUMM (0.10-0.60); BASOPHIL % 0.1 % (0.0-2.0); EOSINOPHIL % 0.4 % (0-5); HEMATOCRIT 35.2 % (42-52); MEAN CORPUSCULAR HGB 30.2 PG (27.0-31.0); MEAN CORPUSCULAR HGB CONC 33.1 G/DL (33.0-37.0); MEAN CORPUSCULAR VOLUME 91.2 FL (80.0-94.0); PLATELET COUNT 241 /CUMM (130-400); RBC DISTRIBUTION WIDTH 14.3 % (11.5-14.5); RED BLOOD CELL CT 3.86 /CUMM (4.70-6.10); WHITE BLOOD CELL COUNT 9.5 /CUMM (4.8-10.8)
--- NOTE | 2016-12-26 07:03 | PN- Resident CRCU ---
Subjective HPI/CRCU Issues: I followed up and examined the patient today. He is intubated, alert, seems to comprehend as I spoke to him about his condition, and is comfortable/not in any apparent distress. No issues overnight, vitals have been stable overnight. 24 Hour Events: We had tried weaning him off ventillator yesterday, when he started getting PVCs and bigeminy, and the weaning trial was held for yesterday. He could not be extubated yesterday Objective Vital Signs & I&O Last 8 Hrs of Vitals and I&O: Vital Signs Date Time Temp Pulse Resp B/P Pulse O2 O2 Flow FiO2 Ox Delivery Rate 12/26 2212 86 151/63 12/26 2210 86 151/63 12/26 1805 110 96 12/26 1800 86 Nasal 7.0L Cannula 12/26 1625 97.2 84 23 149/69 92 Nasal 3.0L Cannula 12/26 1600 92 Nasal 3.0L Cannula 12/26 1200 98 Nasal 3.0L Cannula 12/26 0839 35 12/26 0800 97 Ventilator 35% 12/26 0800 97.7 67 16 166/71 97 Ventilator 35% 12/26 0555 35 12/26 0400 97 Ventilator 35% 12/26 0259 35 12/26 0040 35 12/26 0000 97.9 59 16 132/50 98 Ventilator 35% 12/26 0000 98 Ventilator 35% 12/25 2255 35 Intake & Output 12/26 1600 12/26 0800 12/26 0000 Intake Total 570 461 318 Output Total 200 250 300 Balance 370 211 18 Intake, IV 470 461 268 Intake, Oral 0 0 0 Intake, Tube 0 Feeding Intake, Tube 100 50 Irrigant Number 0 1 Bowel Movements Output, Urine 200 250 300 Exam General Appearance: well developed/nourished, no apparent distress, alert, awake , comfortable, intubated Other Physical Findings: Head: Normocephalic, atraumatic Eyes: Pupils normal in size, regular, reacting to light Nose: Normal on inspection Neck: Supple, full range of motion, no thyromegaly Heart: regular rhythm Lung: Intubated, minimal crackles heard bilaterally, no wheeze Abd: Soft, non-tender, no distention appreciated, Cates in situ Extremities: no change, some swelling present over b/l hands, no redness Neuro: Normal reflex b/l Skin: Warm and dry Weaning Parameters NIF: 27 Minute Volume: 7.49 Resp rate: 17 Vt: 441 Heart Rate: 68 Weaning Schedule Start Time: 1342 Minute Volume: 9.67 Resp Rate: 19 Vt: 509 Heart Rate: 68 End Time: 1406 Minute Volume: 8.36 Resp Rate: 22 Vt: 380 Heart Rate: 68 Current Medications: Current Medications Sig/Damon Start time Last Medication Dose Route Stop Time Status Admin Acetaminophen 1,000 MG Q6P PRN 12/18 2145 AC 12/18 N/A 1 UNIT IV 2144 Acetaminophen 650 MG Q6P PRN 12/16 0015 AC 12/16 PO 2040 Aspirin 81 MG DAILY 12/16 1000 AC 12/26 PO 0810 Atorvastatin Calcium 40 MG 1700 12/16 1700 AC 12/26 PO 1707 Carvedilol 6.25 MG BID 12/18 220 AC 12/26 PO 2210 Cefazolin Sodium 2 GM IQ8 12/22 0000 AC 12/26 N/A 1 UNIT IV 1548 Clopidogrel Bisulfate 75 MG DAILY 12/16 1000 AC 12/26 PO 0810 Dextrose/Sodium 1,000 ML Q20H 12/25 0900 DC 12/26 Chloride IV 1351 Furosemide 40 MG ONCE ONE 12/26 1830 DC 12/26 IV 12/26 1831 1833 Heparin Sodium 4,000 UNIT ONCE ONE 12/26 2030 DC 12/26 (Porcine) IV 12/26 203 204 Heparin Sodium 25,000 UNIT Q24H 12/26 2030 AC 12/26 (Porcine) IV 2214 Sodium Chloride 500 ML Heparin Sodium 5,000 UNIT Q8 12/19 1400 DC 12/26 (Porcine) SC 1352 Insulin Human Regular 0 Q6 12/25 1816 AC 12/26 SC 1707 Lisinopril 10 MG ONCE ONE 12/26 2000 DC 12/26 PO 12/26 2000 2212 Melatonin 5 MG AT BEDTIME 12/27 220 AC 12/26 PO 2219 Morphine Sulfate 2 MG Q4-6 PRN PRN 12/26 2030 AC IV Nitroglycerin 0.5 GM Q6 12/26 2015 AC 12/26 TOP 2040 Pantoprazole Sodium 40 MG DAILY 12/18 1000 AC 12/26 IV 0810 Polyethylene Glycol 17 GM DAILY PRN 12/16 1015 AC PO Potassium Chloride 20 MEQ Q1H 12/26 1045 CAN IV 12/26 1146 Potassium Chloride 10 MEQ Q1H 12/26 1045 DC 12/26 IV 12/26 1246 1227 CXR Findings: IMPRESSION: Stable lines and catheter. Borderline cardiomegaly with mild prominence of pulmonary vascularity but no congestion. DICTATED BY: ARLEEN MAYORGA MD DATE/TIME DICTATED:12/26/16755 AS400 PROGRAMMER ANALYST:VANESSA DATE/TIME TRANSCRIBED:12/26/16755 Impression/Plan Impression/Problem List Impression: 68-year-old male with past medical history significant for hypertension, hyperlipidemia, peripheral vascular disease, bladder cancer diagnosed over one year ago, oral HSV, CAD with a triple bypass in 1993, who has all his routine [facility] care at the [facility], who presents with chief complaint of lower extremity weakness, fever, chills for 20 after having a vascular procedure at the [facility] a day prior to that. 68-year-old male with past medical history significant for hypertension, hyperlipidemia, peripheral vascular disease, bladder cancer diagnosed over one year ago, oral HSV, CAD with a triple bypass in 1993, who has all his routine medical care at the [facility], who presented with chief complaint of lower extremity weakness, fever, chills. He is being managed in the ICU for the following issues: Multiorgan failure syndrome, improving During the course of his ICU stay, many of his organ systems were affected. * His respiratory status deteriorated and he was intubated. He is doing well in vent weaning. * His troponin was persistently elevated, possibly due to severe sepsis, and demand, but NSTEMI is the most likely pathology. His last troponin was 10.40, down from the peak of 40. Resolved. * His blood pressure went low severely, to the point requiring norepinephrine, but has been stable since 12/18/16 morning. * His kidney functions had deteriorated to creatinine 2.2, but is better today at 0.6. * His liver enzymes were elevated too, but is lower today. * His condition updated to his /daughter, who understand the seriousness of his situation. * Dr Lindsey from [facility] had contacted two times, last call on 12/24/16, requesting update about the patient's condition. With family's permission, he was updated about patient's condition and improving situation. He was also told that the patient is still in the intensive care unit and requires ICU level care. Respiratory Acute respiratory distress syndrome, improving * Patient is currently intubated, tolerating the ventilation weaning well. Saturation is maintained above 90%, now at PEEP 5 with FiO2 35%, is alert, oriented, following instructions, not on pressors. Plan to extubate him today. * Update: Patient tolerated weaning trial and was extubated successfully today. He did not have any resp distress following extubation. * Patient was being treated for acute respiratory distress syndrome, that could be characterized as having moderate ARDS, now mild ARDS * Continuing Cefazolin as Staph aureus is found to be sensitive to cephalosporin #Acute shortness of breath this afternoon at 1745 hrs. Patient had acute onset of shortness of breath, was found to be congested in his lungs. Had to be placed on BiPAP with significant improvement and was also given 40 mg of IV Lasix with good diuresis. Patient was asymptomatic after that but still was continued on BiPAP to maintain oxygen above 90%. Attending physician and dietitian teaching were both consulted and plan of management carried out accordingly. Family informed and agrees to the plan. Please see even note for further details. Infectious disease Sepsis, possibly secondary to pneumonia * Continuing Cefazolin as Staph aureus is found to be sensitive to cephalosporin * Today is day 6 of last blood culture that has remained negative. Previous sets of blood cultures were positive for Staph aureus. * GEORGI done. negative for vegetations. * Will possibly require PICC line, as the duration of abx therapywas suggested as four weeks total by ID. * IV Nurse informed and plan to place a PICC line tomorrow. Cardiovascular system Patient's repeat echo shows ejection fraction of 25% from 45% with wall motion abnormalities that appears to be chronic. His troponin was persistently elevated, possibly due to severe sepsis, and demand, but NSTEMI is the most likely pathology. His troponin is 10.40, down from the peak of 40. * Records obtained from [facility] shows that he received lower extremity angiogram, accessed via RIGHT side, with balloon ingioplasty on LEFT superficial femoral artery, and was later sealed via angioseal. Confirmed this detail with the cardiovascular physician Dr Burak Lindsey from [facility] (direct cell number [phone]) on 12/20/16 morning. * Check X-ray of the area did not show any radio-opaque foreign body. On palpation, nothing abnormal felt. * GEORGI done on 12/25/16 is negative for vegetations. However, Dr Jimenez suggests getting repeat TTE in 1-2 days time to follow up on LV function. Hematology * SQ heparin TID for DVT ppx only Metabolic - Continue to follow chemistries and repeat electrolytes accordingly. - Insulin NovoLog sliding scale running and the patient has a swallow re- evaluation pending tomorrow as he could not pass the eval fully today. Alimentary * Awaiting swallow re-eval tomorrow. Can have pills with apple sauce or thickened liquids per speech therapist today. Neurology No issues. DVT prophylaxis with heparin SQ TID CODE STATUS: Full code Problem List: 1. Sepsis 2. MODS (multiple organ dysfunction syndrome) 3. NSTEMI (non-ST elevated myocardial infarction) 4. ARDS (adult respiratory distress syndrome) 5. CAD (coronary artery disease) 6. PVD (peripheral vascular disease) with claudication 7. Pneumonia Pain Ratin Tomorrow's Labs & Rationales: ICU lab bundle, CBC Plan DVT/Prophylaxis: pharmacological
[2016-12-26 07:15] LABS: GRANULOCYTE % 84.7 % (42.2-75.2)
[2016-12-26 08:00] VITALS: BP 166/71
--- NOTE | 2016-12-26 08:02 | RADIOLOGY REPORT ---
EXAMINATION: XR PORTABLE CHEST CLINICAL INFORMATION: ET tube placement. COMPARISON: Chest 12/25/2016. TECHNIQUE: Portable AP 80 degrees erect view of the chest was obtained. FINDINGS: There is borderline cardiomegaly with prominent pulmonary vascularity, question mild congestion. There is enteric tube below the diaphragm in stomach. Endotracheal tube is 3.6 cm above the kim. Both lungs are expanded and clear of acute process. There are median sternotomy sutures and mediastinal adriano from previous CABG. IMPRESSION: Stable lines and catheter. Borderline cardiomegaly with mild prominence of pulmonary vascularity but no congestion.
--- NOTE | 2016-12-26 10:48 | PN- CRCU ---
Subjective HPI/Critical Care Issues: pt seen and examined arousable bigeminy noted overnight awaiting extubation jerome negative Objective Current Medications: Current Medications Sig/Damon Start time Last Medication Dose Route Stop Time Status Admin Acetaminophen 1,000 MG Q6P PRN 12/18 2145 AC 12/18 N/A 1 UNIT IV 2144 Acetaminophen 650 MG Q6P PRN 12/16 0015 AC 12/16 PO 2040 Aspirin 81 MG DAILY 12/16 1000 AC 12/26 PO 0810 Atorvastatin Calcium 40 MG 1700 12/16 1700 AC 12/24 PO 1618 Carvedilol 6.25 MG BID 12/18 2200 AC 12/26 PO 0810 Cefazolin Sodium 2 GM IQ8 12/22 0000 AC 12/26 N/A 1 UNIT IV 0802 Clopidogrel Bisulfate 75 MG DAILY 12/16 1000 AC 12/26 PO 0810 Dextrose/Sodium 1,000 ML Q20H 12/25 0900 AC 12/25 Chloride IV 1820 Heparin Sodium 5,000 UNIT Q8 12/19 1400 AC 12/26 (Porcine) SC 0629 Insulin Aspart 0 Q6 12/20 2002 DC 12/24 OK 1844 Insulin Human Regular 0 Q6 12/25 1816 AC 12/26 SC 0628 Pantoprazole Sodium 40 MG DAILY 12/18 1000 AC 12/26 IV 0810 Polyethylene Glycol 17 GM DAILY PRN 12/16 1015 AC PO Potassium Chloride 20 MEQ Q1H 12/26 1045 CANr IV 12/26 1146 Potassium Chloride 10 MEQ Q1H 12/26 1045 UNVr IV 12/26 1246 Vital Signs & I&O Last 24 Hrs of Vitals and I&O: Vital Signs Date Time Temp Pulse Resp B/P Pulse O2 O2 Flow FiO2 Ox Delivery Rate / 0839 35 12/26 0800 97 Ventilator 35% 12/26 0800 97.7 67 16 166/71 97 Ventilator 35% 03 0555 35 12/26 0400 97 Ventilator 35% 12/26 0259 35 12/26 0040 35 12/26 0000 97.9 59 16 132/50 98 Ventilator 35% 03/ 0000 98 Ventilator 35% 12/25 2255 35 12/25 2155 68 151/65 12/25 202 35 12/25 2000 95 Ventilator 35% 12/25 1715 35 12/25 1600 97.9 62 16 130/58 96 Ventilator 35% 12/25 1600 96 Ventilator 35% 12/25 1330 35 12/25 1200 99 Ventilator 35% 12/25 1146 35 Intake & Output 12/26 1600 12/26 0800 12/26 0000 Intake Total 461 318 Output Total 250 300 Balance 211 18 Intake, IV 461 268 Intake, Oral 0 0 Intake, Tube 0 Feeding Intake, Tube 50 Irrigant Number 0 1 Bowel Movements Output, Urine 250 300 Exam Other Physical Findings: gen awake, intubated heent ett cvs s1, s2 lungs transmitted abd soft, bs+ ext no edema Results Last 24 Hrs of Lab Results: Laboratory Tests 12/26/16 0540: Anion Gap 8, Estimated GFR > 60, Glucose 165 H, Calcium 8.0 L, Phosphorus 3.6, Magnesium 2.2, Total Bilirubin 0.9, AST 53, ALT 101 H, Albumin 2.5 L, CBC w Diff NO MAN DIFF REQ, RBC 3.86 L, MCV 91.2, MCH 30.2, RDW 14.3, MPV 11.0 H, Gran % 84.7 H, Lymphocytes % 6.0 L, Monocytes % 8.8, Eosinophils % 0.4, Basophils % 0.1, Absolute Granulocytes 8.0 H, Absolute Lymphocytes 0.6 L, Absolute Monocytes 0.8 H, Absolute Eosinophils 0, Absolute Basophils 0, PUBS MCHC 33.1 Impression/Plan Impression/Plan Impression/Plan: Impression 76 year old man -resolved ARDS -nstemi, systolic heart failure -staph aureus bacteremia Plan Respiratory -mechanical ventilation -goal spo2 88-92% -SBT today, plan for extubation ID -ID appreciated -Cefazolin for S. Aureus sensitive to Oxacillin -PICC line, 4 weeks of abx CVS -f/u cardiology recommendations Heme -montior h/h, coags Metabolic -ins/outs -monitor electrolytes Alimentary -hold tube feeds for SBT Neuro -off ativan, CT head without acute pathology DVT prophylaxis at all times TTS 35 min
--- NOTE | 2016-12-26 11:02 | PN- Infect Dx ---
Subjective Subjective: Afebrile without complaints Objective Last 24 Hrs of Vital Signs/I&O Vital Signs Date Time Temp Pulse Resp B/P Pulse O2 O2 Flow FiO2 Ox Delivery Rate 12/26 0839 35 12/26 08 97 Ventilator 35% 12/26 08 97.7 67 16 166/71 97 Ventilator 35% 12/26 0555 35 12/26 0400 97 Ventilator 35% 12/26 0259 35 12/26 0040 35 12/26 0000 97.9 59 16 132/50 98 Ventilator 35% 12/26 0000 98 Ventilator 35% 12/25 2255 35 12/25 2155 68 151/65 12/25 2022 35 12/25 2000 95 Ventilator 35% 12/25 1715 35 12/25 1600 97.9 62 16 130/58 96 Ventilator 35% 12/25 1600 96 Ventilator 35% 12/25 1330 35 12/25 1200 99 Ventilator 35% 12/25 1146 35 Intake & Output 12/26 1600 12/26 0800 12/26 0000 Intake Total 461 318 Output Total 250 300 Balance 211 18 Intake, IV 461 268 Intake, Oral 0 0 Intake, Tube 0 Feeding Intake, Tube 50 Irrigant Number 0 1 Bowel Movements Output, Urine 250 300 Physical Exam Other Physical Findings: He appears comfortable on the ventilator in no acute distress Lungs are clear Heart regular rhythm with no murmur Extremities no cyanosis, clubbing or edema Cates catheter remains in place Results Last 24 Hours of Lab Results: Laboratory Tests 12/26 05 Chemistry Sodium (137 - 145 mmol/L) 145 Potassium (3.5 - 5.1 mmol/L) 3.6 Chloride (98 - 107 mmol/L) 106 Carbon Dioxide (22 - 30 mmol/L) 31 H Anion Gap (5 - 16) 8 BUN (9 - 20 mg/dL) 26 H Creatinine (0.7 - 1.2 mg/dL) 0.7 Estimated GFR (>60 ml/min) > 60 Glucose (65 - 99 mg/dL) 165 H Calcium (8.4 - 10.2 mg/dL) 8.0 L Phosphorus (2.5 - 4.5 mg/dL) 3.6 Magnesium (1.6 - 2.3 mg/dL) 2.2 Total Bilirubin (0.2 - 1.3 mg/dL) 0.9 AST (17 - 59 U/L) 53 ALT (21 - 72 U/L) 101 H Albumin (3.5 - 5.0 g/dL) 2.5 L Hematology CBC w Diff NO MAN DIFF REQ WBC (4.8 - 10.8 /CUMM) 9.5 RBC (4.70 - 6.10 /CUMM) 3.86 L Hgb (14.0 - 18.0 G/DL) 11.6 L Hct (42 - 52 %) 35.2 L MCV (80.0 - 94.0 FL) 91.2 MCH (27.0 - 31.0 PG) 30.2 RDW (11.5 - 14.5 %) 14.3 Plt Count (130 - 400 /CUMM) 241 MPV (7.4 - 10.4 FL) 11.0 H Gran % (42.2 - 75.2 %) 84.7 H Lymphocytes % (20.5 - 51.1 %) 6.0 L Monocytes % (1.7 - 9.3 %) 8.8 Eosinophils % (0 - 5 %) 0.4 Basophils % (0.0 - 2.0 %) 0.1 Absolute Granulocytes (1.4 - 6.5 /CUMM) 8.0 H Absolute Lymphocytes (1.2 - 3.4 /CUMM) 0.6 L Absolute Monocytes (0.10 - 0.60 /CUMM) 0.8 H Absolute Eosinophils (0.0 - 0.7 /CUMM) 0 Absolute Basophils (0.0 - 0.2 /CUMM) 0 PUBS MCHC (33.0 - 37.0 G/DL) 33.1 Last 24 Hours of Evens Results: No recent cultures Recent Imaging Studies: Chest x-ray December 26, personally reviewed, reveals mild prominence of pulmonary vascularity GEORGI December 25 negative for any vegetations Assessment/Plan Impression: Stable on Cefazolin now Day 11 of treatment for Staph aureus sepsis [facility], with possible pneumonia, though source has not been clearly identified. He remains afebrile with white blood cell count normal. Though GEORGI was negative feel that this may represent a complicated Staph aureus bacteremia, with persistent fevers and positive blood cultures even after 72 hours of treatment; therefore feel he should receive a longer course ( at least 4 weeks) of IV antibiotics. Suggestion: 1. Would proceed with placement of a PICC 2. Continue Cefazolin to plan on a four-week course of treatment
--- NOTE | 2016-12-26 11:19 | NUR ---
PT EXTUBATED BY RT, ON 3LNC SAT 96%, NO COMPLAINTS, WILL CONTINUE TO MONITOR
[2016-12-26 16:25] VITALS: BP 149/69
--- NOTE | 2016-12-26 17:10 | NUR ---
PT 89% ON 3LNC, O2 INCREASED TO 5LNC SAT IS NOW 92%, WILL CONT TO MON.
--- NOTE | 2016-12-26 18:01 | Event Note ---
Event Note Event Note: 12/26/16 1745hrs: Patient started complaining of shortness of breath suddenly despite being on nasal canula with oxygen at 3L/min earlier. He denied chest pain, palpitation, nausea, vomiting, fever, chills, abdominal pain. He is not coughing, or bringing up any sputum. On examination, he seems tachypneic, anxious, with vitals HR 135, SPO2 87% on 5L /min (increased by nursing staff already), RR- 28/min, afebrile. Resident Dr Lu was also by the side, and we decided to put him on face mask with high flow oxygen while resp therapist was assessing him for BiPAP. He was put on BiPAP, tests ordered STAT : Troponin, ICU lab bundle, EKG, d-dimer , CBC, CXR portable. Patient's oxygen saturation started increasing in BiPAP and he said he no longer had shortness of breath then. Still no other symptoms. He was alert and oriented all this time. EKG shows non-specific ST-T changes in chest leads, sinus tachycardia, RBBB (old ). Update: His CXR shows pulmonary congestion, compared to this AM. IV Lasix 40mg STAT given at 1830 hrs. Will monitor his urine output. Follow Troponin and EKG every [address] Griffiths to be called by Dr Lu for further investigation and management. Attending Dr Pretty will be called by Dr Lu as well for further plan. Family members ( and daughter) explained by me. They understand about the current situation and agree to the plan.
--- NOTE | 2016-12-26 18:15 | NUR ---
PT C/O SOB AND TROUBLE BREATHING, SAT DOWN TO 86% ON 5LNC, RT CALLED, MD CALLED, HR IN 140'S ST, BP 189/101. ABG'S DRAWN, LABS DRAWN, EKG DONE, CXRAY DONE, PT PLACED ON BIPAP AT 35%, SAT NOW 97%, BP 176/84, HR 105, WILL CONT TO MON.
--- NOTE | 2016-12-26 18:42 | RADIOLOGY REPORT ---
EXAMINATION: XR PORTABLE CHEST CLINICAL INFORMATION: Acute respiratory distress. Extubated today. COMPARISON: Chest x-ray 12/26/2016, 6:01 AM TECHNIQUE: Portable AP portable view of the chest was obtained. 6:12 PM FINDINGS: Status post median sternotomy. The endotracheal tube and nasogastric tube seen on prior exam has been removed. Status post median sternotomy. There is bilateral hazy and reticular airspace disease most likely due to pulmonary edema. This has worsened since prior chest x-ray. Probable small left pleural effusion with haziness at lung base and blunting of the costophrenic angle similar to prior exam. IMPRESSION: Worsening congestive heart failure and pulmonary edema since prior chest x-ray this a.m.
[2016-12-26 18:55] LABS: ABSOLUTE BASOPHIL COUNT 0.1 /CUMM (0.0-0.2); ABSOLUTE EOSINOPHIL COUNT 0.1 /CUMM (0.0-0.7); ABSOLUTE GRANULOCYTE CT 14.3 /CUMM (1.4-6.5); ABSOLUTE LYMPH COUNT 1.7 /CUMM (1.2-3.4); ABSOLUTE MONOCYTE COUNT 0.8 /CUMM (0.10-0.60); BASOPHIL % 0.3 % (0.0-2.0); EOSINOPHIL % 0.7 % (0-5); GRANULOCYTE % 84.2 % (42.2-75.2); MEAN CORPUSCULAR HGB 29.4 PG (27.0-31.0); MEAN CORPUSCULAR HGB CONC 31.8 G/DL (33.0-37.0); MEAN CORPUSCULAR VOLUME 92.3 FL (80.0-94.0); MEAN PLATELET VOLUME 11.1 FL (7.4-10.4); RBC DISTRIBUTION WIDTH 14.5 % (11.5-14.5)
[2016-12-26 18:56] LABS: PLATELET COUNT 365 /CUMM (130-400)
[2016-12-26 18:57] LABS: HEMATOCRIT 46.9 % (42-52); RED BLOOD CELL CT 5.09 /CUMM (4.70-6.10)
--- NOTE | 2016-12-26 19:27 | NUR ---
CRITICAL LAB VALUE CALLED IN FOR TROPONIN 0.41. MD PELAEZ AWARE.
--- NOTE | 2016-12-26 20:55 | Event Note ---
Event Note Event Note: positive troponin of 0.41, the showed ST segment depression on V2 V3 V4 that was previously noted, but now become more deep. After discussion with Dr. Jones who is covering Dr. Jimenez, decision made to start the patient on heparin drip , his guaiac was negative, and we'll keep the patient nitroglycerin, patient already on aspirin and Plavix and carvedilol as a home medication will continue and will add one dose of lisinopril as his blood pressure still elevated. We'll repeat chest x-ray in a.m. we'll continue trending his troponin and EKG. P.t breathing status improved after BiPAP placement and IV Lasix. Plan was discussed with the bilingual case manager Dr. Jones and . family was updated.
[2016-12-27] VITALS: BP 137/62
--- NOTE | 2016-12-27 01:44 | NUR ---
REC'D PT IN BED @1999. A/O X3. EXTUBATED ON DAYS ON BIPAP W/FIO2 65%. SR ON THE MONITOR W/PVCS NOTED. REC'D LASIX @1800 D/T FLASH PULM EDEMA. DIURESIS WELL VIA FC. LS CLEAR BUT DIMINISHED THROUGHOUT THE LOBES. REQUESTING TO BE OFF THE BIPAP. RT NUBIA PLACED ON 4LNC POX LOW 90'S. PER DR. PELAEZ TO RESTART ON HEP GTT FOR ACS. MD ALSO CHECK FOR GUAIAC TX NEGATIVE. HEP BOLUS TO BE GIVEN & ALSO GIVE LISINOPRIL X1. SEE EMAR. REMAINS NPO EXCEPT MEDSW/APPLESAUCE & THICKEN LIQ. FILIPPO WELL. RE-EVALUATE FOR SWALLOW IN AM. 2129 ON 4LNC DESATTED IN MID 80'S & >TO 6LNC POX HOOVERING IN THE LOW 90'S 2229 PT WAS PLACED BACK ON BIPAP. NO CHANGE IN SETTINGS. HEP GTT INITIATED SEE EMAR. 0030 ATTEMPTED TO START A NEW IV ACCESS BUT C/O PAIN @ THE SITE. ONLT 1 IV FOR NOW WILL SEEK FOR ANOTHER IV ACCESS IN AM. SOTO MUÑIZ & EKG DONE. NO CP. SETTLING TO SLEEP. CONT TO MONITOR.
[2016-12-27 06:23] LABS: ABSOLUTE BASOPHIL COUNT 0 /CUMM (0.0-0.2); ABSOLUTE EOSINOPHIL COUNT 0 /CUMM (0.0-0.7); ABSOLUTE LYMPH COUNT 0.7 /CUMM (1.2-3.4); RBC DISTRIBUTION WIDTH 14.7 % (11.5-14.5)
[2016-12-27 06:28] LABS: ABSOLUTE MONOCYTE COUNT 0.9 /CUMM (0.10-0.60); BASOPHIL % 0 % (0.0-2.0); EOSINOPHIL % 0.3 % (0-5); MEAN CORPUSCULAR HGB 29.8 PG (27.0-31.0); MEAN CORPUSCULAR HGB CONC 32.7 G/DL (33.0-37.0); MEAN PLATELET VOLUME 10.8 FL (7.4-10.4); PLATELET COUNT 286 /CUMM (130-400); WHITE BLOOD CELL COUNT 10.6 /CUMM (4.8-10.8)
[2016-12-27 06:35] LABS: HEMATOCRIT 38.2 % (42-52)
[2016-12-27 06:42] LABS: PTT 45 SEC (25-37)
[2016-12-27 06:51] LABS: GRANULOCYTE % 84.9 % (42.2-75.2)
--- NOTE | 2016-12-27 07:59 | RADIOLOGY REPORT ---
EXAMINATION: XR PORTABLE CHEST CLINICAL INFORMATION: Shortness of breath. On BiPAP. COMPARISON: Chest 12/26/2016. TECHNIQUE: Portable AP view of the chest was obtained. FINDINGS: There is bilateral perihilar haze and increased vascular markings consistent with CHF. The heart size is borderline normal. There is haziness in the left lung base question effusion. Otherwise rest of lungs are expanded and clear of consolidation. Median sternotomy sutures from previous intervention. No gross bony abnormality. IMPRESSION: CHF with mild improvement from chest 12/26/2016. Borderline normal size heart. Persistent haziness in the left lung base is unchanged.
[2016-12-27 08:00] VITALS: BP 144/52
--- NOTE | 2016-12-27 09:15 | PN- Cardiology ---
Subjective Subjective: The patient had an episode of shortness of breath and tachycardia last evening. His chest x-ray appeared to show congestive heart failure. He was given IV Lasix and placed on BiPAP. A troponin was done and was 0.41. Today he is comfortable. Heart rate is normal. Blood pressure is normal. Objective Vital Signs and I&Os Vital Signs Date Time Temp Pulse Resp B/P Pulse O2 O2 Flow FiO2 Ox Delivery Rate 12/27 0826 66 148/66 12/27 0545 68 98 12/27 0400 97 BIPAP 40% 12/27 0258 65 100 12/27 0028 65 93 12/27 0000 97.3 64 26 137/62 98 BIPAP 65% 12/27 0000 98 BIPAP 65% 12/26 2242 83 93 12/26 2212 86 151/63 12/26 2210 86 151/63 12/26 2000 98 BIPAP 65% 12/26 1805 110 96 12/26 1800 86 Nasal 7.0L Cannula 12/26 1625 97.2 84 23 149/69 92 Nasal 3.0L Cannula 12/26 1600 92 Nasal 3.0L Cannula 12/26 1200 98 Nasal 3.0L Cannula Intake & Output 12/27 1600 12/27 0800 12/27 0000 12/26 1600 12/26 0800 12/26 0000 Intake Total 279 400 570 461 318 Output Total 150 1100 200 250 300 Balance 129 -700 370 211 18 Intake, IV 229 200 470 461 268 Intake, Oral 50 200 0 0 0 Intake, Tube 0 Feeding Intake, Tube 100 50 Irrigant Number 0 0 0 1 Bowel Movements Output, Urine 150 1100 200 250 300 Physical Exam: He is in no distress HEENT exam is normal Chest is clear Heart reveals regular rhythm and no murmurs There is no peripheral edema Current Medications: Current Medications Sig/Damon Start time Last Medication Dose Route Stop Time Status Admin Acetaminophen 1,000 MG Q6P PRN 12/18 2144 AC 12/18 N/A 1 UNIT IV 2143 Acetaminophen 650 MG Q6P PRN 12/16 0015 AC 12/16 PO 2040 Aspirin 81 MG DAILY 12/16 1000 AC 12/27 PO 0825 Atorvastatin Calcium 40 MG 1700 12/16 1700 AC 12/26 PO 1707 Carvedilol 6.25 MG BID 12/18 2200 AC 12/27 PO 0826 Cefazolin Sodium 2 GM IQ8 12/22 0000 AC 12/27 N/A 1 UNIT IV 0827 Clopidogrel Bisulfate 75 MG DAILY 12/16 1000 AC 12/27 PO 0826 Dextrose/Sodium 1,000 ML Q20H 12/25 0900 DC 12/26 Chloride IV 1351 Furosemide 40 MG ONCE ONE 12/26 1830 DC 12/26 IV 12/26 183 1833 Furosemide 40 MG .STK-MED ONE 12/26 1826 DC IV 12/26 1827 Heparin Sodium 2,070 UNIT ONCE ONE 12/27 0700 DC (Porcine) IV 12/27 07 Heparin Sodium 4,000 UNIT ONCE ONE 12/26 2030 DC 12/26 (Porcine) IV 12/26 203 204 Heparin Sodium 25,000 UNIT Q24H 12/26 2029 AC 12/26 (Porcine) IV 221 Sodium Chloride 500 ML Heparin Sodium 5,000 UNIT Q8 12/19 1400 DC 12/26 (Porcine) SC 1352 Insulin Human Regular 0 Q6 12/25 1816 AC 12/27 SC 0636 Lisinopril 10 MG ONCE ONE 12/27 1999 DC 12/26 PO 12/26 2000 221 Melatonin 5 MG AT BEDTIME 12/27 2199 AC 12/26 PO 2219 Melatonin 5 MG .STK-MED ONE 12/26 221 DC PO 12/26 221 Morphine Sulfate 2 MG Q4-6 PRN PRN 12/26 2029 AC IV Nitroglycerin 1 GM .STK-MED ONE 12/26 2036 DC TOP 12/26 203 Nitroglycerin 0.5 GM Q6 12/26 2014 12/27 TOP 0637 Pantoprazole Sodium 40 MG DAILY 12/18 1000 AC 12/27 IV 0823 Polyethylene Glycol 17 GM DAILY PRN 12/16 1015 AC PO Potassium Chloride 10 MEQ Q1H 12/27 0800 AC IV 12/27 1001 Potassium Chloride 20 MEQ Q1H 12/26 1045 CAN IV 12/26 1146 Potassium Chloride 10 MEQ Q1H 12/26 1045 DC 12/26 IV 12/26 1246 1227 Results Last 48 Hrs of Labs/Mics: Laboratory Tests 12/27/16 0600: Troponin I Cancelled 12/27/16 0545: Anion Gap 11, Estimated GFR > 60, Glucose 133 H, Calcium 8.1 L, Phosphorus 3.8 , Magnesium 2.1, Total Bilirubin 0.9, AST 45, ALT 76 H, Troponin I 0.49 *H, Albumin 2.6 L, APTT 45 H, CBC w Diff NO MAN DIFF REQ, RBC 4.20 L, MCV 91.0, MCH 29.8, RDW 14.7 H, MPV 10.8 H, Gran % 84.9 H, Lymphocytes % 6.5 L, Monocytes % 8.3, Eosinophils % 0.3, Basophils % 0 L, Absolute Granulocytes 9.0 H, Absolute Lymphocytes 0.7 L, Absolute Monocytes 0.9 H, Absolute Eosinophils 0, Absolute Basophils 0, PUBS MCHC 32.7 L 12/27/16 0015: Troponin I 0.41 *H 12/26/16 1830: D-Dimer 770 H 12/26/16 1800: pH 7.34 L, pCO2 45, pO2 63 L, HCO3 24, ABG O2 Sat (Measured) 86.0 L, P-50 ( Temp Corrected) N, Carboxyhemoglobin 0.7 L, O2 Concentration % 7L, Temperature 97.2, O2 Delivery Method N/C, Anion Gap 13, Estimated GFR > 60, Glucose 193 H, Calcium 8.5, Phosphorus 3.8, Magnesium 2.3, Total Bilirubin 0.9, AST 60 H, ALT 97 H, Troponin I 0.41 *H, Albumin 3.1 L, CBC w Diff MAN DIFF ORDERED, RBC 5.09 , MCV 92.3, MCH 29.4, RDW 14.5, MPV 11.1 H, Gran % 84.2 H, Lymphocytes % 10.2 L, Monocytes % 4.6, Eosinophils % 0.7, Basophils % 0.3, Absolute Granulocytes 14.3 H, Segmented Neutrophils 80 H, Band Neutrophils 3, Absolute Lymphocytes 1.7, Lymphocytes 11 L, Monocytes 5, Absolute Monocytes 0.8 H, Eosinophils 1, Absolute Eosinophils 0.1, Absolute Basophils 0.1, Platelet Estimate ADEQUATE, Anisocytosis 1+, Macrocytic Cells 1+, PUBS MCHC 31.8 L, Phlebotomy Draw Site RIGHT RADIAL 12/26/16 1045: pH 7.52 H, pCO2 33 L, pO2 98, HCO3 26, ABG O2 Sat (Measured) 97.0, Carboxyhemoglobin 0.7 L, O2 Concentration % 35, Respiration Rate 23, O2 Delivery Method VENT, Vent Mode CPAP/PSV TRIAL, Expiratory Pressure 5, Tidal Volume 517, Pressure Support 6, Phlebotomy Draw Site LEFT RADIAL 12/26/16 0540: Anion Gap 8, Estimated GFR > 60, Glucose 165 H, Calcium 8.0 L, Phosphorus 3.6, Magnesium 2.2, Total Bilirubin 0.9, AST 53, ALT 101 H, Albumin 2.5 L, CBC w Diff NO MAN DIFF REQ, RBC 3.86 L, MCV 91.2, MCH 30.2, RDW 14.3, MPV 11.0 H, Gran % 84.7 H, Lymphocytes % 6.0 L, Monocytes % 8.8, Eosinophils % 0.4, Basophils % 0.1, Absolute Granulocytes 8.0 H, Absolute Lymphocytes 0.6 L, Absolute Monocytes 0.8 H, Absolute Eosinophils 0, Absolute Basophils 0, PUBS MCHC 33.1 Recent Imaging Studies: PATIENT: CAITY BELL PRESENT AGE: 76 PATIENT ACCOUNT NO: [id number] : 38 LOCATION: [facility] ORDERING PHYSICIAN: LENARD PELAEZ MD SERVICE DATE: 12/27/16 EXAM TYPE: RAD - XRY-PORTABLE CHEST XRAY EXAMINATION: XR PORTABLE CHEST CLINICAL INFORMATION: Shortness of breath. On BiPAP. COMPARISON: Chest 12/26/2016. TECHNIQUE: Portable AP view of the chest was obtained. FINDINGS: There is bilateral perihilar haze and increased vascular markings consistent with CHF. The heart size is borderline normal. There is haziness in the left lung base question effusion. Otherwise rest of lungs are expanded and clear of consolidation. Median sternotomy sutures from previous intervention. No gross bony abnormality. IMPRESSION: CHF with mild improvement from chest 12/26/2016. Borderline normal size heart. Persistent haziness in the left lung base is unchanged. DICTATED BY: ARLEEN MAYORGA MD DATE/TIME DICTATED:12/27/16752 SERVICE DELIVERY CONSULTANT:VANESSA DATE/TIME TRANSCRIBED:12/27/16752 CONFIDENTIAL, DO NOT COPY WITHOUT APPROPRIATE AUTHORIZATION. <Electronically signed in Other Vendor System> SIGNED BY: ARLEEN MAYORGA MD 12/27/16 0752 Assessment/Plan Assessment/Plan The patient had an episode of shortness of breath last night. This may have been acute congestive heart failure. He has 3 troponins which are in the 0.4 range. This may just be residual from his previous insult. It does not look like an acute event. I recommend discontinuing IV heparin at this time. I would recommend a limited echocardiogram to look at LV function. The patient will likely need chronic diuretic therapy because of his reduced LV function. We will need to keep his potassium in the normal range. Continue telemetry? Yes
--- NOTE | 2016-12-27 09:54 | PN- Resident CRCU ---
Subjective HPI/CRCU Issues: I followed up and examined the patient today. He is intubated, alert, oriented, is not in any distress, using nasal cannula for oxygen delivery, and does not have any complaints. Vitals stable and no overnight issues. 24 Hour Events: Had acute shortness of breath yesterday evening and had to be put on BiPAP machine. Objective Vital Signs & I&O Last 8 Hrs of Vitals and I&O: Vital Signs Date Time Temp Pulse Resp B/P Pulse O2 O2 Flow FiO2 Ox Delivery Rate 12/27 1200 96 Nasal 4.0L Cannula 12/27 0826 66 148/66 12/27 0800 97.0 66 20 144/52 96 Nasal 4.0L Cannula 12/27 0800 98 Nasal 4.0L Cannula 12/27 0545 68 98 12/27 0400 97 BIPAP 40% 12/27 0258 65 100 12/27 0028 65 93 12/27 0000 97.3 64 26 137/62 98 BIPAP 65% 12/27 0000 98 BIPAP 65% 12/26 2242 83 93 12/26 2212 86 151/63 12/26 2210 86 151/63 12/26 2000 98 BIPAP 65% 12/26 1805 110 96 12/26 1800 86 Nasal 7.0L Cannula Intake & Output 12/27 1600 12/27 0800 12/27 0000 Intake Total 826 279 400 Output Total 318 754 3169 Balance 691 129 -700 Intake, IV 156 229 200 Intake, Oral 640 50 200 Intake, Tube 30 Irrigant Number 1 0 0 Bowel Movements Output, Urine 436 914 6332 Exam General Appearance: well developed/nourished, no apparent distress, alert, awake , comfortable Other Physical Findings: Head: Normocephalic, atraumatic Eyes: Pupils normal in size, regular, reacting to light Nose: Normal on inspection Neck: Supple, full range of motion, no thyromegaly Heart: regular rhythm Lung: Intubated, minimal crackles heard bilaterally, no wheeze Abd: Soft, non-tender, no distention appreciated, Cates in situ Extremities: no change, some swelling present over RIGHT hand, no redness, non tender Neuro: Normal reflex b/l Skin: Warm and dry Weaning Parameters NIF: 36 Minute Volume: 12 Resp rate: 25 Vt: 479 Heart Rate: 67 Weaning Schedule Start Time: 09 Minute Volume: 9.80 Resp Rate: 20 Vt: 490 Heart Rate: 68 End Time: 1113 Minute Volume: 14.0 Resp Rate: 24 Vt: 585 Heart Rate: 69 Current Medications: Current Medications Sig/Damon Start time Last Medication Dose Route Stop Time Status Admin Acetaminophen 1,000 MG Q6P PRN 12/18 2145 AC 12/18 N/A 1 UNIT IV 2144 Acetaminophen 650 MG Q6P PRN 12/16 0015 AC 12/16 PO 2040 Aspirin 81 MG DAILY 12/16 1000 AC 12/27 PO 0825 Atorvastatin Calcium 40 MG 1700 12/16 1700 AC 12/26 PO 1707 Carvedilol 6.25 MG BID 12/18 2200 AC 12/27 PO 0826 Cefazolin Sodium 2 GM IQ8 12/22 0000 AC 12/27 N/A 1 UNIT IV 0827 Clopidogrel Bisulfate 75 MG DAILY 12/16 1000 AC 12/27 PO 0826 Dextrose/Sodium 1,000 ML Q20H 12/25 0900 DC 12/26 Chloride IV 1351 Furosemide 40 MG ONCE ONE 12/26 1830 DC 12/26 IV 12/26 1831 1833 Furosemide 40 MG .STK-MED ONE 12/26 1826 DC IV 12/26 1827 Heparin Sodium 5,000 UNIT Q8 12/27 1400 AC 12/27 (Porcine) SC 1312 Heparin Sodium 2,070 UNIT ONCE ONE 12/27 0700 DC 12/27 (Porcine) IV 12/27 0701 0700 Heparin Sodium 4,000 UNIT ONCE ONE 12/26 2030 DC 12/26 (Porcine) IV 12/26 2031 2042 Heparin Sodium 25,000 UNIT Q24H 12/26 2030 DC 12/26 (Porcine) IV 2214 Sodium Chloride 500 ML Heparin Sodium 5,000 UNIT Q8 12/19 1400 DC 12/26 (Porcine) SC 1352 Insulin Aspart 0 AT BEDTIME 12/27 2200 AC SC Insulin Aspart 0 TIDAC 12/27 1700 AC SC Insulin Human Regular 0 Q6 12/25 1816 DC 12/27 SC 1307 Lisinopril 10 MG ONCE ONE 12/27 1999 DC 12/26 PO 12/26 2000 221 Melatonin 5 MG AT BEDTIME 12/27 220 AC 12/26 PO 2219 Melatonin 5 MG .STK-MED ONE 12/26 2216 DC PO 12/26 2217 Morphine Sulfate 1 MG ONCE ONE 12/27 1245 DC 12/27 IV 12/27 1246 1300 Morphine Sulfate 2 MG Q4-6 PRN PRN 12/26 2029 AC IV Nitroglycerin 1 GM .STK-MED ONE 12/26 2036 DC TOP 12/26 2037 Nitroglycerin 0.5 GM Q6 12/26 2015 AC 12/27 TOP 1230 Pantoprazole Sodium 40 MG DAILY 12/18 1000 AC 12/27 IV 0823 Polyethylene Glycol 17 GM DAILY PRN 12/16 1015 AC PO Potassium Chloride 40 MEQ ONCE ONE 12/27 1015 DC 12/27 PO 12/27 1016 1052 Potassium Chloride 10 MEQ Q1H 12/27 0800 DC IV 12/27 1001 Impression/Plan Impression/Problem List Impression: 68-year-old male with past medical history significant for hypertension, hyperlipidemia, peripheral vascular disease, bladder cancer diagnosed over one year ago, oral HSV, CAD with a triple bypass in 1993, who has all his routine medical care at the [place], who presents with chief complaint of lower extremity weakness, fever, chills for 20 after having a vascular procedure at the [facility] a day prior to that. 68-year-old male with past medical history significant for hypertension, hyperlipidemia, peripheral vascular disease, bladder cancer diagnosed over one year ago, oral HSV, CAD with a triple bypass in 1993, who has all his routine medical care at the [place], who presented with chief complaint of lower extremity weakness, fever, chills. He is being managed in the ICU for the following issues: Multiorgan failure syndrome, improving During the course of his ICU stay, many of his organ systems were affected. * His respiratory status deteriorated and he was intubated. He did well and was extubated yesterday. He did have to be put on BiPAP machine again yesterday evening, but was subsequently weaned down to nasal cannula. * His troponin was persistently elevated, possibly due to severe sepsis, and demand, but NSTEMI is the most likely pathology. His last troponin was 10.40, down from the peak of 40. Resolved. * His blood pressure went low severely, to the point requiring norepinephrine, but has been stable since 12/18/16 morning. * His kidney functions had deteriorated to creatinine 2.2, but is better today at 0.7. * His liver enzymes were elevated too, but is lower today. * His condition updated to his /daughter, who understand the seriousness of his situation. * Dr Lindsey from [facility] had contacted two times, last call on 12/24/16, requesting update about the patient's condition. With family's permission, he was updated about patient's condition and improving situation. He was also told that the patient is still in the intensive care unit and requires ICU level care. Respiratory Acute respiratory distress syndrome, improving * Patient was extubated yesterday without any problem. He did have to be put on BiPAP machine again yesterday evening, but was subsequently weaned down to nasal cannula. * Continuing Cefazolin as Staph aureus is found to be sensitive to cephalosporin Infectious disease Sepsis, possibly secondary to pneumonia * Continuing Cefazolin as Staph aureus is found to be sensitive to cephalosporin * Last blood culture has remained negative. Previous sets of blood cultures were positive for Staph aureus. * GEORGI done. negative for vegetations. * Will possibly require PICC line, as the duration of abx therapywas suggested as four weeks total by ID. * IV Nurse informed and plan to place a PICC line tomorrow. Consent has already been taken. (see chart) Cardiovascular system Patient's repeat echo shows ejection fraction of 25% from 45% with wall motion abnormalities that appears to be chronic. His troponin was persistently elevated, possibly due to severe sepsis, and demand, but NSTEMI is the most likely pathology. His troponin is 10.40, down from the peak of 40. * Records obtained from [facility] shows that he received lower extremity angiogram, accessed via RIGHT side, with balloon ingioplasty on LEFT superficial femoral artery, and was later sealed via angioseal. Confirmed this detail with the cardiovascular physician Dr Burak Lindsey from [facility] (direct cell number [phone]) on 12/20/16 morning. * Check X-ray of the area did not show any radio-opaque foreign body. On palpation, nothing abnormal felt. * GEORGI done on 12/25/16 is negative for vegetations. However, Dr Jimenez suggests getting repeat TTE in 1-2 days time to follow up on LV function. Hematology * SQ heparin TID for DVT ppx only. Was on IV heparin drip yesterday night. Metabolic - Continue to follow chemistries and repeat electrolytes accordingly. - Insulin NovoLog sliding scale running and the patient passed his swallow eval today, although he needs to be ground food only rt now. Alimentary * Can have heart healthy diet with ground food and thickened liquid. Neurology No issues. DVT prophylaxis with heparin SQ TID CODE STATUS: Full code Problem List: 1. Sepsis 2. MODS (multiple organ dysfunction syndrome) 3. NSTEMI (non-ST elevated myocardial infarction) 4. CAD (coronary artery disease) 5. ARDS (adult respiratory distress syndrome) 6. PVD (peripheral vascular disease) with claudication 7. Elevated troponin I level 8. SIRS (systemic inflammatory response syndrome) Pain Ratin Tomorrow's Labs & Rationales: icu lab bundle, cbc Plan DVT/Prophylaxis: pharmacological
--- NOTE | 2016-12-27 10:38 | PN- CRCU ---
Subjective HPI/Critical Care Issues: pt seen and examined right arm swollen last night required bipap congestion improved no leg edema gen weakness Objective Current Medications: Current Medications Sig/Damon Start time Last Medication Dose Route Stop Time Status Admin Acetaminophen 1,000 MG Q6P PRN 12/18 2144 12/18 N/A 1 UNIT IV 2144 Acetaminophen 650 MG Q6P PRN 12/16 0015 AC 12/16 PO 2040 Aspirin 81 MG DAILY 12/16 1000 AC 12/27 PO 0825 Atorvastatin Calcium 40 MG 1700 12/16 1700 AC 12/26 PO 1707 Carvedilol 6.25 MG BID 12/18 2200 AC 12/27 PO 0826 Cefazolin Sodium 2 GM IQ8 12/22 0000 AC 12/27 N/A 1 UNIT IV 0827 Clopidogrel Bisulfate 75 MG DAILY 12/16 1000 AC 12/27 PO 0826 Dextrose/Sodium 1,000 ML Q20H 12/25 0900 DC 12/26 Chloride IV 1351 Furosemide 40 MG ONCE ONE 12/26 1830 DC 12/26 IV 12/26 183 1833 Furosemide 40 MG .STK-MED ONE 12/26 1826 DC IV 12/26 1827 Heparin Sodium 5,000 UNIT Q8 12/27 1400 AC (Porcine) SC Heparin Sodium 2,070 UNIT ONCE ONE 12/27 0700 DC 12/27 (Porcine) IV 12/27 0701 0700 Heparin Sodium 4,000 UNIT ONCE ONE 12/26 2030 DC 12/26 (Porcine) IV 12/26 203 2042 Heparin Sodium 25,000 UNIT Q24H 12/26 2029 DC 12/26 (Porcine) IV 2214 Sodium Chloride 500 ML Heparin Sodium 5,000 UNIT Q8 12/19 1400 DC 12/26 (Porcine) SC 1352 Insulin Human Regular 0 Q6 12/25 1816 AC 12/27 SC 0636 Lisinopril 10 MG ONCE ONE 12/27 1999 DC 12/26 PO 12/26 Melatonin 5 MG AT BEDTIME 12/27 2199 AC 12/26 PO 221 Melatonin 5 MG .STK-MED ONE 12/27 2215 DC PO 12/26 2216 Morphine Sulfate 2 MG Q4-6 PRN PRN 12/26 2029 AC IV Nitroglycerin 1 GM .STK-MED ONE 12/26 2036 DC TOP 12/26 2037 Nitroglycerin 0.5 GM Q6 12/26 2014 AC 12/27 TOP 0637 Pantoprazole Sodium 40 MG DAILY 12/18 1000 AC 12/27 IV 0823 Polyethylene Glycol 17 GM DAILY PRN 12/16 1015 AC PO Potassium Chloride 40 MEQ ONCE ONE 12/27 1015 DC PO 12/27 1016 Potassium Chloride 10 MEQ Q1H 12/27 0800 DC IV 12/27 1001 Potassium Chloride 20 MEQ Q1H 12/26 1045 CAN IV 12/26 1146 Potassium Chloride 10 MEQ Q1H 12/26 1045 DC 12/26 IV 12/26 1246 1227 Vital Signs & I&O Last 24 Hrs of Vitals and I&O: Vital Signs Date Time Temp Pulse Resp B/P Pulse O2 O2 Flow FiO2 Ox Delivery Rate 12/27 0826 66 148/66 12/27 0800 97.0 66 20 144/52 96 Nasal 4.0L Cannula 12/27 0545 68 98 12/27 0400 97 BIPAP 40% 12/27 0258 65 100 12/27 0028 65 93 12/27 0000 97.3 64 26 137/62 98 BIPAP 65% 12/27 0000 98 BIPAP 65% 12/26 2242 83 93 12/26 2212 86 151/63 12/26 2210 86 151/63 12/26 2000 98 BIPAP 65% 12/26 1805 110 96 12/26 1800 86 Nasal 7.0L Cannula 12/26 1625 97.2 84 23 149/69 92 Nasal 3.0L Cannula 12/26 1600 92 Nasal 3.0L Cannula 12/26 1200 98 Nasal 3.0L Cannula Intake & Output 12/27 1600 12/27 0800 12/27 0000 Intake Total 279 400 Output Total 150 1100 Balance 129 -700 Intake, IV 229 200 Intake, Oral 50 200 Number 0 0 Bowel Movements Output, Urine 150 1100 Exam Other Physical Findings: gen awake, intubated heent ett cvs s1, s2 lungs transmitted abd soft, bs+ ext RUE edema Results Last 24 Hrs of Lab Results: Laboratory Tests 12/27/16 0600: Troponin I Cancelled 12/27/16 0545: Anion Gap 11, Estimated GFR > 60, Glucose 133 H, Calcium 8.1 L, Phosphorus 3.8 , Magnesium 2.1, Total Bilirubin 0.9, AST 45, ALT 76 H, Troponin I 0.49 *H, Albumin 2.6 L, APTT 45 H, CBC w Diff NO MAN DIFF REQ, RBC 4.20 L, MCV 91.0, MCH 29.8, RDW 14.7 H, MPV 10.8 H, Gran % 84.9 H, Lymphocytes % 6.5 L, Monocytes % 8.3, Eosinophils % 0.3, Basophils % 0 L, Absolute Granulocytes 9.0 H, Absolute Lymphocytes 0.7 L, Absolute Monocytes 0.9 H, Absolute Eosinophils 0, Absolute Basophils 0, PUBS MCHC 32.7 L 12/27/16 0015: Troponin I 0.41 *H 12/26/16 1830: D-Dimer 770 H 12/26/16 1800: pH 7.34 L, pCO2 45, pO2 63 L, HCO3 24, ABG O2 Sat (Measured) 86.0 L, P-50 ( Temp Corrected) N, Carboxyhemoglobin 0.7 L, O2 Concentration % 7L, Temperature 97.2, O2 Delivery Method N/C, Anion Gap 13, Estimated GFR > 60, Glucose 193 H, Calcium 8.5, Phosphorus 3.8, Magnesium 2.3, Total Bilirubin 0.9, AST 60 H, ALT 97 H, Troponin I 0.41 *H, Albumin 3.1 L, CBC w Diff MAN DIFF ORDERED, RBC 5.09 , MCV 92.3, MCH 29.4, RDW 14.5, MPV 11.1 H, Gran % 84.2 H, Lymphocytes % 10.2 L, Monocytes % 4.6, Eosinophils % 0.7, Basophils % 0.3, Absolute Granulocytes 14.3 H, Segmented Neutrophils 80 H, Band Neutrophils 3, Absolute Lymphocytes 1.7, Lymphocytes 11 L, Monocytes 5, Absolute Monocytes 0.8 H, Eosinophils 1, Absolute Eosinophils 0.1, Absolute Basophils 0.1, Platelet Estimate ADEQUATE, Anisocytosis 1+, Macrocytic Cells 1+, PUBS MCHC 31.8 L, Phlebotomy Draw Site RIGHT RADIAL 12/26/16 1045: pH 7.52 H, pCO2 33 L, pO2 98, HCO3 26, ABG O2 Sat (Measured) 97.0, Carboxyhemoglobin 0.7 L, O2 Concentration % 35, Respiration Rate 23, O2 Delivery Method VENT, Vent Mode CPAP/PSV TRIAL, Expiratory Pressure 5, Tidal Volume 517, Pressure Support 6, Phlebotomy Draw Site LEFT RADIAL Impression/Plan Impression/Plan Impression/Plan: Impression 76 year old man -resolved ARDS -nstemi, systolic heart failure -staph aureus bacteremia -elevated troponins, nstemi vs demand ischemia Plan Respiratory -extubated -required bipap transiently for pulmonary edema that has resolved ID -ID appreciated -Cefazolin for S. Aureus sensitive to Oxacillin -PICC line, 4 weeks of abx CVS -f/u cardiology recommendations -RUE ultrasound to r/o DVT Heme -montior h/h, coags Metabolic -ins/outs -monitor electrolytes Alimentary -hold tube feeds for SBT Neuro -off ativan, CT head without acute pathology DVT prophylaxis at all times TTS 35 min PLAN FOR RUE USG
--- NOTE | 2016-12-27 10:38 | PN- Infect Dx ---
Subjective Subjective: Afebrile without complaints. He was extubated yesterday and did have increased respiratory distress last evening, treated with Lasix, with improvement. Objective Last 24 Hrs of Vital Signs/I&O Vital Signs Date Time Temp Pulse Resp B/P Pulse O2 O2 Flow FiO2 Ox Delivery Rate 12/27 825 66 148/66 12/27 08 97.0 66 20 144/52 96 Nasal 4.0L Cannula 12/27 0545 68 98 12/27 0400 97 BIPAP 40% 12/27 0258 65 100 12/27 0028 65 93 12/27 0000 97.3 64 26 137/62 98 BIPAP 65% 12/27 0000 98 BIPAP 65% 12/26 2242 83 93 12/26 2212 86 151/63 12/26 2210 86 151/63 12/26 2000 98 BIPAP 65% 12/26 1805 110 96 12/26 1800 86 Nasal 7.0L Cannula 12/26 1625 97.2 84 23 149/69 92 Nasal 3.0L Cannula 12/26 1600 92 Nasal 3.0L Cannula 12/26 1200 98 Nasal 3.0L Cannula Intake & Output 12/27 1600 12/27 0800 12/27 0000 Intake Total 279 400 Output Total 150 1100 Balance 129 -700 Intake, IV 229 200 Intake, Oral 50 200 Number 0 0 Bowel Movements Output, Urine 150 1100 Physical Exam Other Physical Findings: He appears comfortable in no acute distress Lungs bibasilar crackles Heart regular rhythm with no murmur Extremities no cyanosis, clubbing or edema Results Last 24 Hours of Lab Results: Laboratory Tests 12/27 12/27 12/27 0600 0545 0015 Chemistry Sodium (137 - 145 mmol/L) 147 H Potassium (3.5 - 5.1 mmol/L) 3.3 L Chloride (98 - 107 mmol/L) 106 Carbon Dioxide (22 - 30 mmol/L) 29 Anion Gap (5 - 16) 11 BUN (9 - 20 mg/dL) 27 H Creatinine (0.7 - 1.2 mg/dL) 0.7 Estimated GFR (>60 ml/min) > 60 Glucose (65 - 99 mg/dL) 133 H Calcium (8.4 - 10.2 mg/dL) 8.1 L Phosphorus (2.5 - 4.5 mg/dL) 3.8 Magnesium (1.6 - 2.3 mg/dL) 2.1 Total Bilirubin (0.2 - 1.3 mg/dL) 0.9 AST (17 - 59 U/L) 45 ALT (21 - 72 U/L) 76 H Troponin I (<0.11 ng/ml) Cancelled 0.49 *H 0.41 *H Albumin (3.5 - 5.0 g/dL) 2.6 L Coagulation APTT (25 - 37 SEC) 45 H Hematology CBC w Diff NO MAN DIFF REQ WBC (4.8 - 10.8 /CUMM) 10.6 RBC (4.70 - 6.10 /CUMM) 4.20 L Hgb (14.0 - 18.0 G/DL) 12.5 L Hct (42 - 52 %) 38.2 L MCV (80.0 - 94.0 FL) 91.0 MCH (27.0 - 31.0 PG) 29.8 RDW (11.5 - 14.5 %) 14.7 H Plt Count (130 - 400 /CUMM) 286 MPV (7.4 - 10.4 FL) 10.8 H Gran % (42.2 - 75.2 %) 84.9 H Lymphocytes % (20.5 - 51.1 %) 6.5 L Monocytes % (1.7 - 9.3 %) 8.3 Eosinophils % (0 - 5 %) 0.3 Basophils % (0.0 - 2.0 %) 0 L Absolute Granulocytes (1.4 - 6.5 /CUMM) 9.0 H Absolute Lymphocytes (1.2 - 3.4 /CUMM) 0.7 L Absolute Monocytes (0.10 - 0.60 /CUMM) 0.9 H Absolute Eosinophils (0.0 - 0.7 /CUMM) 0 Absolute Basophils (0.0 - 0.2 /CUMM) 0 PUBS MCHC (33.0 - 37.0 G/DL) 32.7 L 12/26 12/26 1830 1800 Blood Gas pH (7.35 - 7.45 PH) 7.34 L pCO2 (35 - 45 TORR) 45 pO2 (80 - 100 TORR) 63 L HCO3 (21 - 28 MEQ/L) 24 ABG O2 Sat (Measured) (>96.0 %) 86.0 L P-50 (Temp Corrected) N Carboxyhemoglobin (1.5 - 5.0 %) 0.7 L O2 Concentration % 7L Temperature (97.0 - 100.0 FARH) 97.2 O2 Delivery Method N/C Chemistry Sodium (137 - 145 mmol/L) 146 H Potassium (3.5 - 5.1 mmol/L) 4.2 Chloride (98 - 107 mmol/L) 107 Carbon Dioxide (22 - 30 mmol/L) 25 Anion Gap (5 - 16) 13 BUN (9 - 20 mg/dL) 22 H Creatinine (0.7 - 1.2 mg/dL) 0.6 L Estimated GFR (>60 ml/min) > 60 Glucose (65 - 99 mg/dL) 193 H Calcium (8.4 - 10.2 mg/dL) 8.5 Phosphorus (2.5 - 4.5 mg/dL) 3.8 Magnesium (1.6 - 2.3 mg/dL) 2.3 Total Bilirubin (0.2 - 1.3 mg/dL) 0.9 AST (17 - 59 U/L) 60 H ALT (21 - 72 U/L) 97 H Troponin I (<0.11 ng/ml) 0.41 *H Albumin (3.5 - 5.0 g/dL) 3.1 L Coagulation D-Dimer (70 - 232 ng/ml) 770 H Hematology CBC w Diff MAN DIFF ORDERED WBC (4.8 - 10.8 /CUMM) 17.0 H RBC (4.70 - 6.10 /CUMM) 5.09 Hgb (14.0 - 18.0 G/DL) 14.9 Hct (42 - 52 %) 46.9 MCV (80.0 - 94.0 FL) 92.3 MCH (27.0 - 31.0 PG) 29.4 RDW (11.5 - 14.5 %) 14.5 Plt Count (130 - 400 /CUMM) 365 MPV (7.4 - 10.4 FL) 11.1 H Gran % (42.2 - 75.2 %) 84.2 H Lymphocytes % (20.5 - 51.1 %) 10.2 L Monocytes % (1.7 - 9.3 %) 4.6 Eosinophils % (0 - 5 %) 0.7 Basophils % (0.0 - 2.0 %) 0.3 Absolute Granulocytes (1.4 - 6.5 /CUMM) 14.3 H Segmented Neutrophils (42.2 - 75.2 %) 80 H Band Neutrophils (0.0 - 5.0 %) 3 Absolute Lymphocytes (1.2 - 3.4 /CUMM) 1.7 Lymphocytes (20.5 - 51.1 %) 11 L Monocytes (1.7 - 9.3 %) 5 Absolute Monocytes (0.10 - 0.60 /CUMM) 0.8 H Eosinophils (0 - 5.0 %) 1 Absolute Eosinophils (0.0 - 0.7 /CUMM) 0.1 Absolute Basophils (0.0 - 0.2 /CUMM) 0.1 Platelet Estimate (ADEQUATE) ADEQUATE Anisocytosis 1+ Macrocytic Cells 1+ PUBS MCHC (33.0 - 37.0 G/DL) 31.8 L Miscellaneous Phlebotomy Draw Site RIGHT RADIAL 12/26 1045 Blood Gas pH (7.35 - 7.45 PH) 7.52 H pCO2 (35 - 45 TORR) 33 L pO2 (80 - 100 TORR) 98 HCO3 (21 - 28 MEQ/L) 26 ABG O2 Sat (Measured) (>96.0 %) 97.0 Carboxyhemoglobin (1.5 - 5.0 %) 0.7 L O2 Concentration % 35 Respiration Rate (BPM) 23 O2 Delivery Method VENT Vent Mode CPAP/PSV TRIAL Expiratory Pressure (CMH2O/P) 5 Tidal Volume (CC) 517 Pressure Support (CMH2O/P) 6 Miscellaneous Phlebotomy Draw Site LEFT RADIAL Last 24 Hours of Evens Results: No recent cultures Recent Imaging Studies: Chest x-ray December 27, personally reviewed, reveals improvement from last evening' s film with decreased bilateral densities Assessment/Plan Impression: Overall improved, status post successful extubation yesterday, on Cefazolin now Day 12 of treatment for Staph aureus sepsis following [facility], with possible pneumonia, though source has not been clearly identified. He remains afebrile with white blood cell count normal. He apparently had an exacerbation of CHF last night which was treated with Lasix with improvement. Though GEORGI was negative feel that this may represent a complicated Staph aureus bacteremia, with persistent fevers and positive blood cultures even after 72 hours of treatment; therefore feel he should receive a longer course (at least 4 weeks) of IV antibiotics. Suggestion: 1. Would proceed with placement of a PICC 2. Remove Cates catheter if okay with Cardiology 3. Continue Cefazolin to plan on a four-week course of treatment
--- NOTE | 2016-12-27 11:54 | NUR ---
OCCUPATIONAL THERAPY: OT CONSULT RECEIVED AND CHART REVIEWED. ATTEMPTED TO SEE PT, PT JUST FINISHED WORKING WITH PHYSICAL THERAPY OOB TO RECLINER. PT WITH FATIGUE FOLLOWING FUNCTIONAL MOBILTY. OT WILL F/U TOMMOROW IF APPROPRIATE. THANK YOU. SPENSER
[2016-12-27 14:08] LABS: PTT 35 SEC (25-37)
[2016-12-27 16:00] VITALS: BP 136/86
--- NOTE | 2016-12-27 16:51 | ULTRASOUND REPORT ---
EXAMINATION: US TRIPLEX UPPER EXTREMITY, RIGHT CLINICAL INFORMATION: Right upper extremity edema/swelling. COMPARISON: None TECHNIQUE: Color-flow triplex imaging with spectral analysis and compression Doppler were performed on the right upper extremity. FINDINGS: Respiratory variation, normal compression and augmented flow are noted throughout the right upper extremity. The visualized internal jugular vein, innominate vein, clavian vein, axillary vein, brachial vein, basilic vein, and cephalic vein show no evidence of deep venous thrombosis. IMPRESSION: Normal triplex scan without evidence of deep venous thrombosis involving the right upper extremity.
--- NOTE | 2016-12-27 18:39 | ECHOCARDIOGRAM REPORT ---
CAITY BELL Age: 76 : 1940 Gender: M Exam Date: 12/27/2016 16:34 Exam Location: [facility] Ht (in): 72 Wt (lb): 152 BSA: 1.86 BP: 148 / 66 Ordering Physician: LENARD PELAEZ MD Referring Physician: Yayo Jimenez MD Chief, SoC Technologist: Rosita Pryor [facility] Room Number: 108 Indications: SHORTNESS OF BREATH Rhythm: Technical Quality: Good FINDINGS Left Ventricle The left ventricle is upper normal size. Left ventricular wall thickness is upper limits of normal. Interventricular septum appears to contract well. The inferior wall is hypokinetic. The basilar posterior wall is akinetic. Overall left ventricular systolic function is moderately decreased. Estimated ejection fraction is 40-45%."pseudonormal" filling pattern of the left ventricle for age (stage 2 diastolic dysfunction). Right Ventricle The right ventricle is normal in size and function. Right Atrium The right atrium is normal in size. Left Atrium Mild left atrial dilatation. Mitral Valve Mild thickening/calcification of the mitral valve leaflets. Mild mitral annular calcification. Mild mitral regurgitation. Aortic Valve Diffuse thickening (sclerosis) of the aortic valve cusps without reduced excursion. No aortic stenosis. Mild aortic regurgitation. Tricuspid Valve Tricuspid valve is normal in structure and function. Trace tricuspid regurgitation. Unable to estimate the right ventricular systolic pressure. Pulmonic Valve Pulmonic valve not well visualized, grossly normal. Trace pulmonic regurgitation. Pericardium There is no pericardial effusion. There is a left pleural effusion. Great Vessels Normal aortic root dimension. The aortic arch and great vessels are well seen and are normal. CONCLUSIONS The left ventricle is upper normal size. Left ventricular wall thickness is upper limits of normal. Interventricular septum appears to contract well. The inferior wall is hypokinetic. The basilar posterior wall is akinetic. Overall left ventricular systolic function is moderately decreased. Estimated ejection fraction is 40-45%. "pseudonormal" filling pattern of the left ventricle for age (stage 2 diastolic dysfunction). Mild left atrial dilatation. Mild thickening/calcification of the mitral valve leaflets. Mild mitral annular calcification. Mild mitral regurgitation. Diffuse thickening (sclerosis) of the aortic valve cusps without reduced excursion. No aortic stenosis. Mild aortic regurgitation. Unable to estimate the right ventricular systolic pressure. There is a left pleural effusion. Yayo Jimenez M.D. (Electronically Signed) Final Date: 27 December 2016 18:38 MEASUREMENTS (Male / Female) Normal Values 2D ECHO LV Diastolic Diameter PLAX 5.4 cm 4.2 - 5.9 / 3.9 - 5.3 cm LV Systolic Diameter PLAX 4.5 cm 2.1 - 4.0 cm LV Fractional Shortening PLAX 16.7 % 25 - 46 % LV Ejection Fraction 2D Teich 34.6 % IVS Diastolic Thickness 0.9 cm LVPW Diastolic Thickness 1.1 cm LV Relative Wall Thickness 0.4 RV Internal Dim ED PLAX 2.8 cm 1.9 - 3.8 cm LVOT Diameter 1.8 cm Aortic Root Diameter 3.0 cm LA Systolic Diameter LX 4.5 cm 3.0 - 4.0 / 2.7 - 3.8 cm LV Ejection Fraction MOD BP 43.5 % >= 55 % LV Diastolic Length 4C 9.5 cm 6.9 - 10.3 cm LV Diastolic Area 4C 37.4 cm LV Diastolic Volume MOD 4C 119.0 cm LV Ejection Fraction MOD 4C 41.2 % LV Stroke Volume MOD 4C 49.0 cm LV Systolic Length 4C 8.6 cm LV Systolic Area 4C 26.5 cm LV Systolic Volume MOD 4C 70.0 cm LV Ejection Fraction MOD 2C 51.8 % LV Diastolic Volume 4C AL 125.3 cm 85 - 139 / 69 - 109 cm LV Systolic Volume 4C AL 69.8 cm LV Ejection Fraction 4C AL 44.3 % LV Stroke Volume 4C AL 55.5 cm LV Ejection Fraction 2C AL 53.3 % LA Volume 49.0 cm 18 - 58 / 22 - 52 cm Ascending Aorta Diameter 2.7 cm DOPPLER AV Peak Velocity 149.0 cm/s AV Peak Gradient 8.9 mmHg AV Mean Velocity 91.9 cm/s AV Mean Gradient 4.0 mmHg AV Velocity Time Integral 31.6 cm LVOT Peak Velocity 107.0 cm/s LVOT Peak Gradient 4.6 mmHg LVOT Mean Velocity 64.3 cm/s LVOT Mean Gradient 2.0 mmHg LVOT Velocity Time Integral 21.9 cm LVOT Stroke Volume 55.7 cm AV Area Cont Eq vti 1.8 cm AV Area Cont Eq pk 1.8 cm MV Peak Velocity 138.0 cm/s MV Peak Gradient 7.6 mmHg MV Mean Velocity 69.1 cm/s MV Mean Gradient 3.0 mmHg Mitral E Point Velocity 127.0 cm/s Mitral A Point Velocity 81.2 cm/s Mitral E to A Ratio 1.6 MV PHT Velocity 141.0 cm/s MV Deceleration [place] 346.0 cm/s MV Pressure Half Time 122.3 ms MV Area PHT 1.8 cm MV Deceleration Time 164.0 ms PV Peak Velocity 149.0 cm/s PV Peak Gradient 8.9 mmHg PV Mean Velocity 104.0 cm/s PV Mean Gradient 5.0 mmHg PV Velocity Time Integral 34.7 cm LV E' Lateral Velocity 8.0 cm/s Mitral E to LV E' Lateral Ratio 15.9 LV E' Septal Velocity 5.9 cm/s Mitral E to LV E' Septal Ratio 21.3
[2016-12-28] VITALS: BP 132/62
[2016-12-28 06:08] LABS: ABSOLUTE BASOPHIL COUNT 0 /CUMM (0.0-0.2); ABSOLUTE EOSINOPHIL COUNT 0.1 /CUMM (0.0-0.7); ABSOLUTE LYMPH COUNT 0.9 /CUMM (1.2-3.4); ABSOLUTE MONOCYTE COUNT 0.8 /CUMM (0.10-0.60); BASOPHIL % 0.1 % (0.0-2.0); EOSINOPHIL % 1.5 % (0-5); GRANULOCYTE % 78.9 % (42.2-75.2); MEAN CORPUSCULAR HGB 30.1 PG (27.0-31.0); MEAN CORPUSCULAR HGB CONC 33.2 G/DL (33.0-37.0); MEAN CORPUSCULAR VOLUME 90.7 FL (80.0-94.0); MEAN PLATELET VOLUME 10.9 FL (7.4-10.4); PLATELET COUNT 289 /CUMM (130-400); RBC DISTRIBUTION WIDTH 14.3 % (11.5-14.5); RED BLOOD CELL CT 3.86 /CUMM (4.70-6.10); WHITE BLOOD CELL COUNT 8.9 /CUMM (4.8-10.8)
--- NOTE | 2016-12-28 07:30 | PN- Resident CRCU ---
Subjective HPI/CRCU Issues: I followed up and examined the patient today. He is intubated, alert, oriented, is not in any distress, using nasal cannula for oxygen delivery, and does not have any complaints. No swelling of hand today. Vitals stable and no overnight issues. Objective Vital Signs & I&O Last 8 Hrs of Vitals and I&O: Vital Signs Date Time Temp Pulse Resp B/P Pulse O2 O2 Flow FiO2 Ox Delivery Rate 12/28 0400 97 Nasal 4.0L Cannula 12/28 0000 96 Nasal 4.0L Cannula 12/28 0000 97.8 64 17 132/62 96 Nasal 4.0L Cannula 12/27 2142 95 Nasal 4.0L Cannula 12/27 2141 71 143/73 12/27 2000 96 Nasal 4.0L Cannula 12/27 1600 96 Nasal 4.0L Cannula 12/27 1600 97.7 68 18 136/86 96 Nasal 4.0L Cannula 12/27 1200 96 Nasal 4.0L Cannula Intake & Output 12/28 1600 12/28 0800 12/28 0000 Intake Total 220 480 Output Total 250 250 Balance -30 230 Intake, IV 100 130 Intake, Oral 120 350 Number 0 1 Bowel Movements Output, Urine 250 250 Exam General Appearance: well developed/nourished, no apparent distress, alert, awake , comfortable Other Physical Findings: Head: Normocephalic, atraumatic Eyes: Pupils normal in size, regular, reacting to light Nose: Normal on inspection Neck: Supple, full range of motion, no thyromegaly Heart: regular rhythm Lung: Intubated, minimal crackles heard bilaterally, no wheeze Abd: Soft, non-tender, no distention appreciated, Cates in situ Extremities: no change, swelling over RIGHT hand has decreased, no redness, non tender Neuro: Normal reflex b/l Skin: Warm and dry Weaning Parameters NIF: 36 Minute Volume: 12 Resp rate: 25 Vt: 479 Heart Rate: 67 Weaning Schedule Start Time: 0938 Minute Volume: 9.80 Resp Rate: 20 Vt: 490 Heart Rate: 68 End Time: 1113 Minute Volume: 14.0 Resp Rate: 24 Vt: 585 Heart Rate: 69 Cates Site: urethral Date In: 12/17/16 Still Needed? Yes Nutrition Nutrition: P.O. diet Current Medications: Current Medications Sig/Damon Start time Last Medication Dose Route Stop Time Status Admin Acetaminophen 1,000 MG Q6P PRN 12/18 2145 AC 12/18 N/A 1 UNIT IV 2144 Acetaminophen 650 MG Q6P PRN 12/16 0015 AC 12/28 PO 0153 Aspirin 81 MG DAILY 12/16 1000 AC 12/27 PO 0825 Atorvastatin Calcium 40 MG 1700 12/16 1700 AC 12/27 PO 1752 Carvedilol 6.25 MG BID 12/18 2200 AC 12/27 PO 2141 Cefazolin Sodium 2 GM IQ8 12/22 0000 AC 12/28 N/A 1 UNIT IV 0914 Clopidogrel Bisulfate 75 MG DAILY 12/16 1000 AC 12/27 PO 0826 Heparin Sodium 5,000 UNIT Q8 12/27 1400 AC 12/28 (Porcine) SC 0615 Heparin Sodium 25,000 UNIT Q24H 12/26 2030 DC 12/26 (Porcine) IV 2214 Sodium Chloride 500 ML Insulin Aspart 0 AT BEDTIME 12/27 2200 AC SC Insulin Aspart 0 TIDAC 12/27 1700 AC 12/27 SC 1750 Insulin Human Regular 0 Q6 12/25 1816 DC 12/27 SC 1307 Melatonin 5 MG AT BEDTIME 12/27 2200 AC 12/27 PO 2138 Morphine Sulfate 1 MG ONCE ONE 12/27 1245 DC 12/27 IV 12/27 1246 1300 Morphine Sulfate 2 MG Q4-6 PRN PRN 12/26 2030 AC IV Nitroglycerin 0.5 GM Q6 12/26 2015 AC 12/28 TOP 0613 Pantoprazole Sodium 40 MG DAILY 12/18 1000 AC 12/27 IV 0823 Polyethylene Glycol 17 GM DAILY PRN 12/16 1015 AC PO Potassium Chloride 40 MEQ ONCE ONE 12/27 1015 DC 12/27 PO 12/27 1016 1052 Potassium Chloride 10 MEQ Q1H 12/27 0800 DC IV 12/27 1001 Impression/Plan Impression/Problem List Impression: 68-year-old male with past medical history significant for hypertension, hyperlipidemia, peripheral vascular disease, bladder cancer diagnosed over one year ago, oral HSV, CAD with a triple bypass in 1993, who has all his routine medical care at the [facility], who presents with chief complaint of lower extremity weakness, fever, chills for 20 after having a vascular procedure at the [facility] a day prior to that. No new issues today. He is being managed in the ICU for the following issues: Multiorgan failure syndrome, improving During the course of his ICU stay, many of his organ systems were affected. * His respiratory status deteriorated and he was intubated. He did well and was extubated yesterday. He did have to be put on BiPAP machine again yesterday evening, but was subsequently weaned down to nasal cannula. * His troponin was persistently elevated, possibly due to severe sepsis, and demand, but NSTEMI is the most likely pathology. His last troponin was 10.40, down from the peak of 40. Resolved. * His blood pressure went low severely, to the point requiring norepinephrine, but has been stable since 12/18/16 morning. * His kidney functions had deteriorated to creatinine 2.2, but is better today at 0.6. * His liver enzymes were elevated too, but is lower today. * His condition updated to his /daughter, who understand the seriousness of his situation. * Dr Lindsey from [facility] had contacted two times, last call on 12/24/16, requesting update about the patient's condition. With family's permission, he was updated about patient's condition and improving situation. He was also told that the patient is still in the intensive care unit and requires ICU level care. Respiratory Acute respiratory distress syndrome, improved * Patient extubated without any problem. Continuing Cefazolin as Staph aureus is found to be sensitive to cephalosporin Infectious disease Sepsis, possibly secondary to pneumonia * Continuing Cefazolin as Staph aureus is found to be sensitive to cephalosporin * GEORGI done. negative for vegetations. * PICC line inserted today, will require 4 weeks of abx total Cardiovascular system Patient's repeat echo shows ejection fraction of 25% from 45% with wall motion abnormalities that appears to be chronic. His troponin was persistently elevated, possibly due to severe sepsis, and demand, but NSTEMI is the most likely pathology. His troponin is 10.40, down from the peak of 40. * Records obtained from [facility] shows that he received lower extremity angiogram, accessed via RIGHT side, with balloon ingioplasty on LEFT superficial femoral artery, and was later sealed via angioseal. Confirmed this detail with the cardiovascular physician Dr Burak Lindsey from [facility] (direct cell number [phone]) on 12/20/16 morning. * Check X-ray of the area did not show any radio-opaque foreign body. On palpation, nothing abnormal felt. * GEORGI done on 12/25/16 is negative for vegetations. However, Dr Jimenez suggests getting repeat TTE in 1-2 days time to follow up on LV function. Hematology * SQ heparin TID for DVT ppx only. Metabolic - Continue to follow chemistries and repeat electrolytes accordingly. - Insulin NovoLog sliding scale running Alimentary * Can have heart healthy diet Neurology No issues. DVT prophylaxis with heparin SQ TID CODE STATUS: Full code Problem List: 1. Sepsis Pain Ratin Tomorrow's Labs & Rationales: CBC, BEP to follow up lytes and signs of infection Plan DVT/Prophylaxis: pharmacological DVT prophylaxis with heparin SQ TID CODE STATUS: Full code Tomorrow's Labs & Rationales: CBC, BEP to follow up lytes and signs of infection Plan DVT/Prophylaxis: pharmacological
[2016-12-28 08:00] VITALS: BP 110/70
--- NOTE | 2016-12-28 09:21 | PN- CRCU ---
Subjective HPI/Critical Care Issues: pt seen and examined RUE without DVT doing well awaiting picc line today no new events Objective Current Medications: Current Medications Sig/Damon Start time Last Medication Dose Route Stop Time Status Admin Acetaminophen 1,000 MG Q6P PRN 12/18 2145 AC 12/18 N/A 1 UNIT IV 2144 Acetaminophen 650 MG Q6P PRN 12/16 0015 AC 12/28 PO 0153 Aspirin 81 MG DAILY 12/16 1000 AC 12/27 PO 0825 Atorvastatin Calcium 40 MG 1700 12/16 1700 AC 12/27 PO 1752 Carvedilol 6.25 MG BID 12/18 2200 AC 12/27 PO 2141 Cefazolin Sodium 2 GM IQ8 12/22 0000 AC 12/28 N/A 1 UNIT IV 0914 Clopidogrel Bisulfate 75 MG DAILY 12/16 1000 AC 12/27 PO 0826 Heparin Sodium 5,000 UNIT Q8 12/27 1400 AC 12/28 (Porcine) SC 0615 Heparin Sodium 25,000 UNIT Q24H 12/26 2030 DC 12/26 (Porcine) IV 2214 Sodium Chloride 500 ML Insulin Aspart 0 AT BEDTIME 12/27 2200 AC SC Insulin Aspart 0 TIDAC 12/27 1700 AC 12/27 SC 1750 Insulin Human Regular 0 Q6 12/25 1816 DC 12/27 SC 1307 Melatonin 5 MG AT BEDTIME 12/27 220 AC 12/27 PO 2138 Morphine Sulfate 1 MG ONCE ONE 12/27 1245 DC 12/27 IV 12/27 1246 1300 Morphine Sulfate 2 MG Q4-6 PRN PRN 12/26 2030 AC IV Nitroglycerin 0.5 GM Q6 12/26 2015 AC 12/28 TOP 0613 Pantoprazole Sodium 40 MG DAILY 12/18 1000 AC 12/27 IV 0823 Polyethylene Glycol 17 GM DAILY PRN 12/16 1015 AC PO Potassium Chloride 40 MEQ ONCE ONE 12/27 1015 DC 12/27 PO 12/27 1016 1052 Potassium Chloride 10 MEQ Q1H 12/27 0800 DC IV 12/27 1001 Vital Signs & I&O Last 24 Hrs of Vitals and I&O: Vital Signs Date Time Temp Pulse Resp B/P Pulse O2 O2 Flow FiO2 Ox Delivery Rate 12/28 0400 97 Nasal 4.0L Cannula 12/28 0000 96 Nasal 4.0L Cannula 12/28 0000 97.8 64 17 132/62 96 Nasal 4.0L Cannula 12/27 2141 95 Nasal 4.0L Cannula 12/27 2141 71 143/73 12/28 1999 96 Nasal 4.0L Cannula 12/27 1600 96 Nasal 4.0L Cannula 12/27 1600 97.7 68 18 136/86 96 Nasal 4.0L Cannula 12/27 1200 96 Nasal 4.0L Cannula Intake & Output 12/28 1600 12/28 0800 12/28 0000 Intake Total 220 480 Output Total 250 250 Balance -30 230 Intake, IV 100 130 Intake, Oral 120 350 Number 0 1 Bowel Movements Output, Urine 250 250 Exam Other Physical Findings: gen awake, intubated heent ett cvs s1, s2 lungs transmitted abd soft, bs+ ext RUE edema Results Last 24 Hrs of Lab Results: Laboratory Tests 12/28/16 0525: Anion Gap 7, Estimated GFR > 60, Glucose 129 H, Calcium 8.0 L, Phosphorus 4.1, Magnesium 2.0, Total Bilirubin 0.7, AST 40, ALT 61, Albumin 2.3 L, CBC w Diff NO MAN DIFF REQ, RBC 3.86 L, MCV 90.7, MCH 30.1, RDW 14.3, MPV 10.9 H, Gran % 78.9 H, Lymphocytes % 10.5 L, Monocytes % 9.0, Eosinophils % 1.5, Basophils % 0.1, Absolute Granulocytes 7.0 H, Absolute Lymphocytes 0.9 L, Absolute Monocytes 0.8 H, Absolute Eosinophils 0.1, Absolute Basophils 0, PUBS MCHC 33.2 12/27/16 1350: Urinalysis LIGHT H, Urine Color YEL, Urine Clarity HAZY H, Urine pH 5.5, Ur Specific [place] >= 1.030, Urine Protein 30 H, Urine Ketones TRACE H, Urine Nitrite NEG, Urine Bilirubin NEG@ICTO, Urine Urobilinogen 0.2, Ur Leukocyte Esterase NEG, Ur Microscopic SEDIMENT EXAMINED, Urine RBC 5-10 H, Urine WBC 10- 15 H, Ur Epithelial Cells FEW, Urine Bacteria MOD H, Granular Casts 10-15 H, Urine Mucus FEW, Urine Hemoglobin TRACE-INTACT H, Urine Glucose NEG 12/27/16 1240: Troponin I 0.41 *H, APTT 35 Impression/Plan Impression/Plan Impression/Plan: Impression 76 year old man -resolved ARDS -nstemi, systolic heart failure -staph aureus bacteremia -elevated troponins, nstemi vs demand ischemia Plan Respiratory -doing well -keep spo2 >92% ID -ID appreciated -Cefazolin for S. Aureus sensitive to Oxacillin -PICC line, 4 weeks of abx CVS -f/u cardiology recommendations -RUE ultrasound to r/o DVT Heme -montior h/h, coags Metabolic -ins/outs -monitor electrolytes Alimentary -hold tube feeds for SBT Neuro -off ativan, CT head without acute pathology DVT prophylaxis at all times RUE usg negative for DVT PICC line today DG to telemetry
--- NOTE | 2016-12-28 11:04 | RADIOLOGY REPORT ---
EXAMINATION: XR PORTABLE CHEST CLINICAL INFORMATION: Confirm PICC line position. COMPARISON: 12/27/2026 TECHNIQUE: Portable AP view of the chest was obtained. FINDINGS: There is a left-sided PICC line with the tip in the high right atrium. Heart is mildly enlarged. Poststernotomy changes. Mild improvement in perihilar vascular prominence. Bibasilar airspace disease with small pleural effusions, slightly worse on the right. IMPRESSION: PICC line terminates in the high right atrium. Bibasilar airspace disease and small pleural effusions, slightly worsened on the right.
--- NOTE | 2016-12-28 11:09 | PN- Infect Dx ---
Subjective Subjective: Afebrile without complaints Objective Last 24 Hrs of Vital Signs/I&O Vital Signs Date Time Temp Pulse Resp B/P Pulse O2 O2 Flow FiO2 Ox Delivery Rate 12/28 08 97 Nasal 4.0L Cannula 12/29 799 97.0 60 20 110/70 97 Nasal 4.0L Cannula 12/28 0400 97 Nasal 4.0L Cannula 12/28 0000 96 Nasal 4.0L Cannula 12/28 0000 97.8 64 17 132/62 96 Nasal 4.0L Cannula 12/27 2141 95 Nasal 4.0L Cannula 12/271 71 143/73 12/28 1999 96 Nasal 4.0L Cannula 12/28 1599 96 Nasal 4.0L Cannula 12/28 1599 97.7 68 18 136/86 96 Nasal 4.0L Cannula 12/27 1200 96 Nasal 4.0L Cannula Intake & Output 12/28 1600 12/28 0812/28 0000 Intake Total 220 480 Output Total 250 250 Balance -30 230 Intake, IV 100 130 Intake, Oral 120 350 Number 0 1 Bowel Movements Output, Urine 250 250 Physical Exam Other Physical Findings: He appears comfortable in no acute distress Lungs decreased breath sounds both bases Heart regular rhythm with no murmur Extremities PICC in place in the left upper extremity; no cyanosis, clubbing or edema Cates catheter remains in place Results Last 24 Hours of Lab Results: Laboratory Tests 12/28 12/27 0525 1350 Chemistry Sodium (137 - 145 mmol/L) 140 Potassium (3.5 - 5.1 mmol/L) 3.6 Chloride (98 - 107 mmol/L) 105 Carbon Dioxide (22 - 30 mmol/L) 29 Anion Gap (5 - 16) 7 BUN (9 - 20 mg/dL) 26 H Creatinine (0.7 - 1.2 mg/dL) 0.6 L Estimated GFR (>60 ml/min) > 60 Glucose (65 - 99 mg/dL) 129 H Calcium (8.4 - 10.2 mg/dL) 8.0 L Phosphorus (2.5 - 4.5 mg/dL) 4.1 Magnesium (1.6 - 2.3 mg/dL) 2.0 Total Bilirubin (0.2 - 1.3 mg/dL) 0.7 AST (17 - 59 U/L) 40 ALT (21 - 72 U/L) 61 Albumin (3.5 - 5.0 g/dL) 2.3 L Hematology CBC w Diff NO MAN DIFF REQ WBC (4.8 - 10.8 /CUMM) 8.9 RBC (4.70 - 6.10 /CUMM) 3.86 L Hgb (14.0 - 18.0 G/DL) 11.6 L Hct (42 - 52 %) 35.0 L MCV (80.0 - 94.0 FL) 90.7 MCH (27.0 - 31.0 PG) 30.1 RDW (11.5 - 14.5 %) 14.3 Plt Count (130 - 400 /CUMM) 289 MPV (7.4 - 10.4 FL) 10.9 H Gran % (42.2 - 75.2 %) 78.9 H Lymphocytes % (20.5 - 51.1 %) 10.5 L Monocytes % (1.7 - 9.3 %) 9.0 Eosinophils % (0 - 5 %) 1.5 Basophils % (0.0 - 2.0 %) 0.1 Absolute Granulocytes (1.4 - 6.5 /CUMM) 7.0 H Absolute Lymphocytes (1.2 - 3.4 /CUMM) 0.9 L Absolute Monocytes (0.10 - 0.60 /CUMM) 0.8 H Absolute Eosinophils (0.0 - 0.7 /CUMM) 0.1 Absolute Basophils (0.0 - 0.2 /CUMM) 0 PUBS MCHC (33.0 - 37.0 G/DL) 33.2 Urines Urinalysis LIGHT H Urine Color (YEL,AMB,STR) YEL Urine Clarity (CLEAR) HAZY H Urine pH (5.0 - 8.0) 5.5 Ur Specific [place] (1.001 - 1.035) >= 1.030 Urine Protein (NEG,<30 MG/DL) 30 H Urine Ketones (NEG) TRACE H Urine Nitrite (NEG) NEG Urine Bilirubin (NEG) NEG@ICTO Urine Urobilinogen (0.1 - 1.0 EU/dl) 0.2 Ur Leukocyte Esterase (NEG) NEG Ur Microscopic SEDIMENT EXAMINED Urine RBC (0 - 5 /HPF) 5-10 H Urine WBC (0 - 2 /HPF) 10-15 H Ur Epithelial Cells (NONE,FEW) FEW Urine Bacteria (NEG/NONE) MOD H Granular Casts (NONE /LPF) 10-15 H Urine Mucus (FEW,NONE) FEW Urine Hemoglobin (NEG) TRACE-INTACT H Urine Glucose (N MG/DL) NEG 12/27 1240 Chemistry Troponin I (<0.11 ng/ml) 0.41 *H Coagulation APTT (25 - 37 SEC) 35 Last 24 Hours of Evens Results: No recent cultures Recent Imaging Studies: Doppler of the right upper extremity December 27 negative Chest x-ray December 28, personally reviewed, reveals bibasilar densities without significant change Assessment/Plan Impression: Doing well, with temperatures and white blood cell count remaining normal, on Cefazolin now Day 13 of treatment for Staph aureus sepsis, [facility], possibly secondary to pneumonia, though source has not been clearly identified. Though GEORGI was negative feel that this may represent a complicated Staph aureus bacteremia, with persistent fevers and positive blood cultures even after 72 hours of treatment; therefore feel he should receive a 4 week course of IV antibiotics. Suggestion: 1. Remove Cates catheter 2. Continue Cefazolin to plan on a four-week course of treatment from his negative blood cultures (until January 17)
--- NOTE | 2016-12-28 11:23 | PN- Cardiology ---
Subjective Subjective: The patient is looking much better today. He has no complaints. He is eager to increase his activities. His vital signs are normal. His echocardiogram showed ejection fraction 40-45% which I believe is around his baseline and is improved over his second echo which showed depressed left ventricular function. This was probably due to acute non-ST elevation myocardial infarction at that time. He is on carvedilol, aspirin, Plavix, nitroglycerin paste for his cardiac medications. Objective Vital Signs and I&Os Vital Signs Date Time Temp Pulse Resp B/P Pulse O2 O2 Flow FiO2 Ox Delivery Rate 12/28 08 97 Nasal 4.0L Cannula 12/28 08 97.0 60 20 110/70 97 Nasal 4.0L Cannula 12/28 0400 97 Nasal 4.0L Cannula 12/28 0000 96 Nasal 4.0L Cannula 12/28 0000 97.8 64 17 132/62 96 Nasal 4.0L Cannula 12/27 2142 95 Nasal 4.0L Cannula 12/27 2141 71 143/73 12/27 2000 96 Nasal 4.0L Cannula 12/27 1600 96 Nasal 4.0L Cannula 12/27 1600 97.7 68 18 136/86 96 Nasal 4.0L Cannula 12/27 1200 96 Nasal 4.0L Cannula Intake & Output 12/28 1600 12/28 0800 12/28 0000 12/27 1600 12/27 0800 12/27 0000 Intake Total 220 480 826 279 400 Output Total 250 250 073 313 3891 Balance -30 230 691 129 -700 Intake, IV 100 130 156 229 200 Intake, Oral 120 350 640 50 200 Intake, Tube 30 Irrigant Number 0 1 1 0 0 Bowel Movements Output, Urine 250 250 024 731 0304 Physical Exam: The patient looks well. He is in no distress. HEENT exam is normal Chest is clear Heart reveals regular rhythm and no murmurs Extremities good pulses Results Last 48 Hrs of Labs/Mics: Laboratory Tests 12/28/16 0525: Anion Gap 7, Estimated GFR > 60, Glucose 129 H, Calcium 8.0 L, Phosphorus 4.1, Magnesium 2.0, Total Bilirubin 0.7, AST 40, ALT 61, Albumin 2.3 L, CBC w Diff NO MAN DIFF REQ, RBC 3.86 L, MCV 90.7, MCH 30.1, RDW 14.3, MPV 10.9 H, Gran % 78.9 H, Lymphocytes % 10.5 L, Monocytes % 9.0, Eosinophils % 1.5, Basophils % 0.1, Absolute Granulocytes 7.0 H, Absolute Lymphocytes 0.9 L, Absolute Monocytes 0.8 H, Absolute Eosinophils 0.1, Absolute Basophils 0, PUBS MCHC 33.2 12/27/16 1350: Urinalysis LIGHT H, Urine Color YEL, Urine Clarity HAZY H, Urine pH 5.5, Ur Specific [place] >= 1.030, Urine Protein 30 H, Urine Ketones TRACE H, Urine Nitrite NEG, Urine Bilirubin NEG@ICTO, Urine Urobilinogen 0.2, Ur Leukocyte Esterase NEG, Ur Microscopic SEDIMENT EXAMINED, Urine RBC 5-10 H, Urine WBC 10- 15 H, Ur Epithelial Cells FEW, Urine Bacteria MOD H, Granular Casts 10-15 H, Urine Mucus FEW, Urine Hemoglobin TRACE-INTACT H, Urine Glucose NEG 12/27/16 1240: Troponin I 0.41 *H, APTT 35 12/27/16 0600: Troponin I Cancelled 12/27/16 0545: Anion Gap 11, Estimated GFR > 60, Glucose 133 H, Calcium 8.1 L, Phosphorus 3.8 , Magnesium 2.1, Total Bilirubin 0.9, AST 45, ALT 76 H, Troponin I 0.49 *H, Albumin 2.6 L, APTT 45 H, CBC w Diff NO MAN DIFF REQ, RBC 4.20 L, MCV 91.0, MCH 29.8, RDW 14.7 H, MPV 10.8 H, Gran % 84.9 H, Lymphocytes % 6.5 L, Monocytes % 8.3, Eosinophils % 0.3, Basophils % 0 L, Absolute Granulocytes 9.0 H, Absolute Lymphocytes 0.7 L, Absolute Monocytes 0.9 H, Absolute Eosinophils 0, Absolute Basophils 0, PUBS MCHC 32.7 L 12/27/16 0015: Troponin I 0.41 *H 12/26/16 1830: D-Dimer 770 H 12/26/16 1800: pH 7.34 L, pCO2 45, pO2 63 L, HCO3 24, ABG O2 Sat (Measured) 86.0 L, P-50 ( Temp Corrected) N, Carboxyhemoglobin 0.7 L, O2 Concentration % 7L, Temperature 97.2, O2 Delivery Method N/C, Anion Gap 13, Estimated GFR > 60, Glucose 193 H, Calcium 8.5, Phosphorus 3.8, Magnesium 2.3, Total Bilirubin 0.9, AST 60 H, ALT 97 H, Troponin I 0.41 *H, Albumin 3.1 L, CBC w Diff MAN DIFF ORDERED, RBC 5.09 , MCV 92.3, MCH 29.4, RDW 14.5, MPV 11.1 H, Gran % 84.2 H, Lymphocytes % 10.2 L, Monocytes % 4.6, Eosinophils % 0.7, Basophils % 0.3, Absolute Granulocytes 14.3 H, Segmented Neutrophils 80 H, Band Neutrophils 3, Absolute Lymphocytes 1.7, Lymphocytes 11 L, Monocytes 5, Absolute Monocytes 0.8 H, Eosinophils 1, Absolute Eosinophils 0.1, Absolute Basophils 0.1, Platelet Estimate ADEQUATE, Anisocytosis 1+, Macrocytic Cells 1+, PUBS MCHC 31.8 L, Phlebotomy Draw Site RIGHT RADIAL Recent Imaging Studies: PATIENT: CAITY BELL PRESENT AGE: 76 PATIENT ACCOUNT NO: [id number] : 38 LOCATION: [facility] ORDERING PHYSICIAN: JESUS VALDES MD SERVICE DATE: 12/28/16 EXAM TYPE: RAD - XRY-PORTABLE CHEST XRAY EXAMINATION: XR PORTABLE CHEST CLINICAL INFORMATION: Confirm PICC line position. COMPARISON: 12/27/2026 TECHNIQUE: Portable AP view of the chest was obtained. FINDINGS: There is a left-sided PICC line with the tip in the high right atrium. Heart is mildly enlarged. Poststernotomy changes. Mild improvement in perihilar vascular prominence. Bibasilar airspace disease with small pleural effusions, slightly worse on the right. IMPRESSION: PICC line terminates in the high right atrium. Bibasilar airspace disease and small pleural effusions, slightly worsened on the right. DICTATED BY: GAEL BENNETT MD DATE/TIME DICTATED:12/28/161056 CHIEF TECHNICIAN:VANESSA DATE/TIME TRANSCRIBED:12/28/161056 CONFIDENTIAL, DO NOT COPY WITHOUT APPROPRIATE AUTHORIZATION. <Electronically signed in Other Vendor System> SIGNED BY: GAEL BENNETT MD [id number] CONCLUSIONS The left ventricle is upper normal size. Left ventricular wall thickness is upper limits of normal. Interventricular septum appears to contract well. The inferior wall is hypokinetic. The basilar posterior wall is akinetic. Overall left ventricular systolic function is moderately decreased. Estimated ejection fraction is 40-45%. "pseudonormal" filling pattern of the left ventricle for age (stage 2 diastolic dysfunction). Mild left atrial dilatation. Mild thickening/calcification of the mitral valve leaflets. Mild mitral annular calcification. Mild mitral regurgitation. Diffuse thickening (sclerosis) of the aortic valve cusps without reduced excursion. No aortic stenosis. Mild aortic regurgitation. Unable to estimate the right ventricular systolic pressure. There is a left pleural effusion. Yayo Jimenez M.D. (Electronically Signed) Final Date: 27 December 2016 18:38 Assessment/Plan Assessment/Plan The patient is looking better today. He is not in any respiratory distress. His echocardiogram appears to be at his baseline with ejection fraction of 40-45 %. I believe he had an episode of congestive heart failure 2 days ago probably just related to fluid administration and baseline decreased LV function. I recommend starting the patient on Lasix 20 mg daily to keep him from having recurrent congestive heart failure. He should probably be on this medication at home as well. The patient looks well enough to be transferred to telemetry, where I would keep him because of his underlying heart disease. Continue telemetry? Not applicable
--- NOTE | 2016-12-28 11:50 | Event Note ---
Event Note Event Note: I spoke with Dr Israel St, interventional radiologist reported the chest x -ray after a PICC line was placed from his right arm. His report reads "PICC line terminates in the high right atrium". The patient does not have any distress, atrial ectopics. I called him to confirm the correct placement of the PICC line to which he said that the the line is in the place where it should be, and given patient's age and when he moves around, it can move but it stays in place. There is no need to re-adjust the PICC line position. [facility] staff communicated and told to report any change in vital status, including cardiac rhythm changes- particularly atrial ectopics. Will proceed with PICC line use per IR advice.
[2016-12-28 16:00] VITALS: BP 130/60
[2016-12-29] VITALS: BP 118/54
[2016-12-29 05:41] LABS: ABSOLUTE BASOPHIL COUNT 0 /CUMM (0.0-0.2); ABSOLUTE EOSINOPHIL COUNT 0.1 /CUMM (0.0-0.7); ABSOLUTE GRANULOCYTE CT 5.3 /CUMM (1.4-6.5); ABSOLUTE MONOCYTE COUNT 0.7 /CUMM (0.10-0.60); BASOPHIL % 0.3 % (0.0-2.0); EOSINOPHIL % 1.5 % (0-5); GRANULOCYTE % 74.2 % (42.2-75.2); HEMATOCRIT 32.4 % (42-52); MEAN CORPUSCULAR HGB 30.3 PG (27.0-31.0); MEAN CORPUSCULAR HGB CONC 33.4 G/DL (33.0-37.0); MEAN CORPUSCULAR VOLUME 90.7 FL (80.0-94.0); MEAN PLATELET VOLUME 11.3 FL (7.4-10.4); PLATELET COUNT 267 /CUMM (130-400); RBC DISTRIBUTION WIDTH 14.5 % (11.5-14.5); RED BLOOD CELL CT 3.57 /CUMM (4.70-6.10); WHITE BLOOD CELL COUNT 7.2 /CUMM (4.8-10.8)
[2016-12-29 07:00] VITALS: BP 120/70
--- NOTE | 2016-12-29 08:19 | PN- Housestaff ---
ANGEL DEE,IMGE 12/29/16 0818: Subjective Follow-up For: Staph aureus sepsis possibly secondary to pneumonia ARDS, resolved NSTEMI Subjective: No acute events overnight. Patient was seen and examined this morning. He is sitting comfortably in bed and eating his breakfast. He is doing well and his only complaint is a mild headache. He continues to remain without shortness of breath and with good oxygen saturations on 4 L NC. Review of Systems Constitutional: Reports: no symptoms. Objective Last 24 Hrs of Vital Signs/I&O Vital Signs Date Time Temp Pulse Resp B/P Pulse O2 O2 Flow FiO2 Ox Delivery Rate 12/29 2138 98.0 87 18 132/60 93 Nasal Cannula / 1607 97.0 65 18 122/50 93 Nasal 4.0L Cannula 12/29 1600 93 Nasal 4.0L Cannula 12/29 1232 97.9 58 20 116/70 12/29 1232 97.9 58 20 116/70 12/29 0814 58 116/70 12/29 0800 Nasal 4.0L Cannula 12/29 0700 97.9 58 20 120/70 95 Nasal 4.0L Cannula / 0000 98 Nasal 4.0L Cannula / 0000 97.3 54 20 118/54 98 Nasal 4.0L Cannula 12/28 2151 74 158/64 Intake & Output 12/29 1600 / 0800 12/29 0000 Intake Total 560 120 400 Output Total 150 100 125 Balance 410 20 275 Intake, IV 100 Intake, Oral 460 120 400 Number 1 Bowel Movements Output, Urine 150 100 125 Physical Exam General Appearance: Alert, Oriented X3, No Acute Distress HEENT: Atraumatic, Mucous Membr. moist/pink Neck: Supple Cardiovascular: Regular Rate, Normal S1, Normal S2, No Murmurs, Gallops, Rubs Lungs: Clear to Auscultation Abdomen: Soft, No Tenderness, Positive Bowel Sounds Extremities: No Clubbing, No Cyanosis, No Edema Current Medications: Current Medications Sig/Damon Start time Last Medication Dose Route Stop Time Status Admin Acetaminophen 650 MG .STK-MED ONE 12/30 943 DC PO 12/29 944 Acetaminophen 650 MG .STK-MED ONE 12/28 2142 DC PO 12/29 2143 Acetaminophen 1,000 MG Q6P PRN 12/18 2144 AC 12/18 N/A 1 UNIT IV 2144 Acetaminophen 650 MG Q6P PRN 12/16 0015 AC 12/29 PO 0948 Aspirin 81 MG DAILY 12/16 1000 AC 12/29 PO 0813 Atorvastatin Calcium 40 MG 1700 12/16 1700 AC 12/29 PO 1608 Carvedilol 6.25 MG BID 12/18 2200 AC 12/29 PO 0814 Cefazolin Sodium 2 GM IQ8 12/22 0000 AC 12/29 N/A 1 UNIT IV 1543 Clopidogrel Bisulfate 75 MG DAILY 12/16 1000 AC 12/29 PO 0814 Finasteride 5 MG DAILY 12/29 1104 AC 12/29 PO 1232 Furosemide 20 MG DAILY 12/28 1124 AC 12/29 PO 0814 Heparin Sodium 5,000 UNIT Q8 12/27 1400 AC 12/29 (Porcine) SC 1409 Insulin Aspart 0 AT BEDTIME 12/27 2200 AC 12/29 SC 2102 Insulin Aspart 0 TIDAC 12/27 1700 AC 12/29 SC 1609 Isosorbide 30 MG DAILY 12/29 1115 AC 12/29 Mononitrate PO 1232 Magnesium Oxide 400 MG ONE ONE 12/29 829 DC 12/29 PO 12/29 0831 0948 Melatonin 5 MG AT BEDTIME 12/27 2200 AC 12/28 PO 2149 Morphine Sulfate 2 MG Q4-6 PRN PRN 12/26 2030 AC IV Nitroglycerin 0.5 GM Q6 12/26 2015 DC 12/29 TOP 0601 Pantoprazole Sodium 40 MG DAILY 12/18 1000 AC 12/29 IV 0813 Polyethylene Glycol 17 GM DAILY PRN 12/16 1015 AC PO Potassium Chloride 60 MEQ ONCE ONE 12/29 829 DC 12/29 PO 12/29 0831 0948 Ranolazine 500 MG BID 12/29 1042 AC 12/29 PO 1232 Tamsulosin HCl 0.4 MG DAILY 12/29 1032 AC 12/29 PO 1543 Last 24 Hrs of Lab/Evens Results Last 24 Hrs of Labs/Mics: Laboratory Tests 12/29/16 0500: Anion Gap 6, Estimated GFR > 60, Glucose 95, Calcium 8.0 L, Phosphorus 3.8, Magnesium 1.9, Total Bilirubin 0.7, AST 36, ALT 50, Albumin 2.2 L, CBC w Diff NO MAN DIFF REQ, RBC 3.57 L, MCV 90.7, MCH 30.3, RDW 14.5, MPV 11.3 H, Gran % 74.2, Lymphocytes % 14.1 L, Monocytes % 9.9 H, Eosinophils % 1.5, Basophils % 0.3, Absolute Granulocytes 5.3, Absolute Lymphocytes 1.0 L, Absolute Monocytes 0.7 H, Absolute Eosinophils 0.1, Absolute Basophils 0, PUBS MCHC 33.4 Assessment/Plan Assessment: 76 y/o M with PMHx of CAD s/p CABG, PVD s/p LLE angioplasty and T2DM who is admitted with ARDS, now resolved, MSSA bacteremia 2/2 possible pneumonia and NSTEMI. #Staph aureus sepsis: Of unclear etiology but is likely secondary to pneumonia. Remains afebrile and without leukocytosis on day 14 of cefazolin. * ID following. Appreciate their recs. * Continue IV cefazolin for a total of 4 weeks from his negative blood cultures (12/20/16-01/17/17). #NSTEMI: Clinically stable. * Cardiology following. Appreciate their recs. * Discontinue prior to admission HCTZ 25 mg PO daily on discharge. * Continue Lasix 20 mg daily and add to discharge medications. * Await transfer to telemetry and discharge to [facility]. * OOB as tolerated. * Discontinue nitroglycerin paste. Resume prior to admission Imdur 30 mg PO daily. * Resume prior to admission Ranexa 500 mg PO BID. #BPH: * Resume prior to admission tamsulosin 0.4 mg PO daily and finasteride 5 mg PO daily. #Headache: * One time Tylenol 650 mg PO administered. Diet: Heart Healthy DVT PPx: HSQ and ALPs CODE: FULL Problem List: 1. NSTEMI (non-ST elevated myocardial infarction) 2. ARDS (adult respiratory distress syndrome) 3. Pneumonia 4. MSSA (methicillin susceptible Staphylococcus aureus) septicemia 5. CAD (coronary artery disease) 6. BPH (benign prostatic hyperplasia) 7. Headache Pain Ratin Pain Location: N/A Pain Goal: Remain pain free Pain Plan: Tylenol 650 mg PO Q6H PRN for mild pain (scale 1-3) Tomorrow's Labs & Rationales: CBC to monitor H/H in the setting of anemia BMP to monitor K in the setting of hypokalemia SAHIL DEE,MOUNIKA 12/29/16 1216: Attending MD Review Statement Attending Statement Attending MD Statement: examined this patient, discuss w/resident/PA/HOSPITAL TECHNICIAN, agreed w/resident/PA/HOSPITAL TECHNICIAN, reviewed EMR data (avail), discussed with nursing, reviewed images, amended to note Attending Assessment/Plan: Patient seen and examined, complained of some headache. Otherwise denies any other complaints. Hemodynamically stable. Vital Signs Date Time Temp Pulse Resp B/P Pulse O2 O2 Flow FiO2 Ox Delivery Rate 12/29 0814 58 116/70 12/29 0800 Nasal 4.0L Cannula 12/29 0700 97.9 58 20 120/70 95 Nasal 4.0L Cannula 12/29 0000 98 Nasal 4.0L Cannula 12/29 0000 97.3 54 20 118/54 98 Nasal 4.0L Cannula 12/28 2151 74 158/64 12/28 1600 96 Nasal 4.0L Cannula 12/28 1600 96.8 63 24 130/60 96 Room Air 12/28 1534 Nasal 4.0L Cannula 12/28 1243 60 120/70 on exam; aox3, nad. cv; s1,s2, rrr. resp; clear abd; sost, nt, bs+ ext; no edema Laboratory Tests 12/29 12/29 0600 0500 Chemistry Sodium (137 - 145 mmol/L) Cancelled 141 Potassium (3.5 - 5.1 mmol/L) Cancelled 3.4 L Chloride (98 - 107 mmol/L) Cancelled 104 Carbon Dioxide (22 - 30 mmol/L) Cancelled 30 Anion Gap (5 - 16) Cancelled 6 BUN (9 - 20 mg/dL) Cancelled 17 Creatinine (0.7 - 1.2 mg/dL) Cancelled 0.5 L Estimated GFR (>60 ml/min) > 60 BUN/Creatinine Ratio Cancelled Glucose (65 - 99 mg/dL) 95 Calcium (8.4 - 10.2 mg/dL) 8.0 L Phosphorus (2.5 - 4.5 mg/dL) 3.8 Magnesium (1.6 - 2.3 mg/dL) 1.9 Total Bilirubin (0.2 - 1.3 mg/dL) 0.7 AST (17 - 59 U/L) 36 ALT (21 - 72 U/L) 50 Albumin (3.5 - 5.0 g/dL) 2.2 L Hematology CBC w Diff Cancelled NO MAN DIFF REQ WBC (4.8 - 10.8 /CUMM) Cancelled 7.2 RBC (4.70 - 6.10 /CUMM) Cancelled 3.57 L Hgb (14.0 - 18.0 G/DL) Cancelled 10.8 L Hct (42 - 52 %) Cancelled 32.4 L MCV (80.0 - 94.0 FL) Cancelled 90.7 MCH (27.0 - 31.0 PG) Cancelled 30.3 RDW (11.5 - 14.5 %) Cancelled 14.5 Plt Count (130 - 400 /CUMM) Cancelled 267 MPV (7.4 - 10.4 FL) Cancelled 11.3 H Gran % (42.2 - 75.2 %) 74.2 Lymphocytes % (20.5 - 51.1 %) 14.1 L Monocytes % (1.7 - 9.3 %) 9.9 H Eosinophils % (0 - 5 %) 1.5 Basophils % (0.0 - 2.0 %) 0.3 Absolute Granulocytes (1.4 - 6.5 /CUMM) 5.3 Absolute Lymphocytes (1.2 - 3.4 /CUMM) 1.0 L Absolute Monocytes (0.10 - 0.60 /CUMM) 0.7 H Absolute Eosinophils (0.0 - 0.7 /CUMM) 0.1 Absolute Basophils (0.0 - 0.2 /CUMM) 0 PUBS MCHC (33.0 - 37.0 G/DL) Cancelled 33.4 A/P; 76 y/o M with pmh sig for CAD status post quadruple bypass, bladder cancer with recurrent UTI, peripheral vascular disease, hyperlipidemia, hypertension, diabetes admitted with ARDS which has resolved, staff aureus MSSA bacteremia, NSTEMI with positive troponins. Patient on cefazolin and infectious disease recommending total of 4 weeks of treatment. Patient has been getting some of his current medications, we resumed the rest and please check with cardiology if patient should stay on Lasix as a diuretic or should he go back on his hydrochlorothiazide which she was taking at home. He can be transferred to telemetry. Continue other current medications. DVT px: Heparin subcutaneous
--- NOTE | 2016-12-29 09:26 | PN- Pulmonary ---
Subjective HPI/Critical Care Issues: She is awake alert and able to feed himself without shortness of breath on nasal oxygen Objective Current Medications: Current Medications Sig/Damon Start time Last Medication Dose Route Stop Time Status Admin Acetaminophen 650 MG .STK-MED ONE 12/28 2143 DC PO 12/28 2144 Acetaminophen 1,000 MG Q6P PRN 12/18 2145 AC 12/18 N/A 1 UNIT IV 2144 Acetaminophen 650 MG Q6P PRN 12/16 0015 AC 12/28 PO 2149 Aspirin 81 MG DAILY 12/16 1000 AC 12/29 PO 0813 Atorvastatin Calcium 40 MG 1700 12/16 1700 AC 12/28 PO 1818 Carvedilol 6.25 MG BID 12/18 2200 AC 12/29 PO 0814 Cefazolin Sodium 2 GM IQ8 12/22 0000 AC 12/29 N/A 1 UNIT IV 0814 Clopidogrel Bisulfate 75 MG DAILY 12/16 1000 AC 12/29 PO 0814 Furosemide 20 MG DAILY 12/28 1124 AC 12/29 PO 0814 Heparin Sodium 5,000 UNIT Q8 12/27 1400 AC 12/29 (Porcine) SC 0600 Insulin Aspart 0 AT BEDTIME 12/27 2200 AC SC Insulin Aspart 0 TIDAC 12/27 1700 AC 12/28 SC 1819 Magnesium Oxide 400 MG ONE ONE 12/29 0830 DC PO 12/29 0831 Melatonin 5 MG AT BEDTIME 12/27 2200 AC 12/28 PO 2149 Morphine Sulfate 2 MG Q4-6 PRN PRN 12/26 2030 AC IV Nitroglycerin 0.5 GM Q6 12/26 2015 AC 12/29 TOP 0601 Pantoprazole Sodium 40 MG DAILY 12/18 1000 AC 12/29 IV 0813 Polyethylene Glycol 17 GM DAILY PRN 12/16 1015 AC PO Potassium Chloride 60 MEQ ONCE ONE 12/29 0830 DC PO 12/29 0831 Vital Signs & I&O Last 24 Hrs of Vitals and I&O: Vital Signs Date Time Temp Pulse Resp B/P Pulse O2 O2 Flow FiO2 Ox Delivery Rate 12/29 0814 58 116/70 / 0000 98 Nasal 4.0L Cannula 12/29 0000 97.3 54 20 118/54 98 Nasal 4.0L Cannula 12/28 2151 74 158/64 12/28 1600 96 Nasal 4.0L Cannula 12/28 1600 96.8 63 24 130/60 96 Room Air 12/28 1534 Nasal 4.0L Cannula 12/28 1243 60 120/70 Intake & Output 12/29 1600 12/29 0800 03 0000 Intake Total 120 400 Output Total 100 125 Balance 20 275 Intake, Oral 120 400 Number 1 Bowel Movements Output, Urine 100 125 And saturation 4 L 98% exam of his chest shows somewhat diminished breath sounds at the bases cardiac exam shows a regular S1 and S2 without murmurs abdominal exam is soft nontender Impression/Plan Impression/Plan Impression/Plan: 76-year-old gentleman recovering from sepsis and ARDS with improving respiratory status Recommendations: Continue to taper FiO2 continue current medical regimen increase activity out of bed with physical therapy
--- NOTE | 2016-12-29 11:07 | PN- Cardiology ---
Subjective Subjective: The patient is awake and alert. He seems stable and denies any significant symptoms. He is currently awaiting transfer to the telemetry floor. Objective Vital Signs and I&Os Vital Signs Date Time Temp Pulse Resp B/P Pulse O2 O2 Flow FiO2 Ox Delivery Rate 12/29 0814 58 116/70 / 0800 Nasal 4.0L Cannula 12/29 0700 97.9 58 20 120/70 95 Nasal 4.0L Cannula 12/29 0000 98 Nasal 4.0L Cannula 12/29 0000 97.3 54 20 118/54 98 Nasal 4.0L Cannula 12/28 2151 74 158/64 12/28 1600 96 Nasal 4.0L Cannula 12/28 1600 96.8 63 24 130/60 96 Room Air 12/28 1534 Nasal 4.0L Cannula 12/28 1243 60 120/70 Intake & Output 12/29 1600 12/29 0800 12/29 0000 12/28 1600 12/28 0800 12/28 0000 Intake Total 120 400 700 220 480 Output Total 100 125 275 250 250 Balance 20 275 425 -30 230 Intake, IV 100 100 130 Intake, Oral 120 400 600 120 350 Number 1 0 1 Bowel Movements Output, Urine 100 125 275 250 250 Current Medications: Current Medications Sig/Damon Start time Last Medication Dose Route Stop Time Status Admin Acetaminophen 650 MG .STK-MED ONE 12/28 2143 DC PO 12/28 2144 Acetaminophen 1,000 MG Q6P PRN 12/18 2145 AC 12/18 N/A 1 UNIT IV 2144 Acetaminophen 650 MG Q6P PRN 12/16 0015 AC 12/29 PO 0948 Aspirin 81 MG DAILY 12/16 1000 AC 12/29 PO 0813 Atorvastatin Calcium 40 MG 1700 12/16 1700 AC 12/28 PO 1818 Carvedilol 6.25 MG BID 12/18 2200 AC 12/29 PO 0814 Cefazolin Sodium 2 GM IQ8 12/22 0000 AC 12/29 N/A 1 UNIT IV 0814 Clopidogrel Bisulfate 75 MG DAILY 12/16 1000 AC 12/29 PO 0814 Finasteride 5 MG DAILY 12/29 1104 AC PO Furosemide 20 MG DAILY 12/28 1124 AC 12/29 PO 0814 Heparin Sodium 5,000 UNIT Q8 12/27 1400 AC 12/29 (Porcine) SC 0600 Insulin Aspart 0 AT BEDTIME 12/27 2200 AC SC Insulin Aspart 0 TIDAC 12/27 1700 AC 12/28 SC 1819 Magnesium Oxide 400 MG ONE ONE 12/29 829 DC 12/29 PO 12/29 0831 0948 Melatonin 5 MG AT BEDTIME 12/27 2200 AC 12/28 PO 2149 Morphine Sulfate 2 MG Q4-6 PRN PRN 12/26 2030 AC IV Nitroglycerin 0.5 GM Q6 12/26 2014 AC 12/29 TOP 0601 Pantoprazole Sodium 40 MG DAILY 12/18 1000 AC 12/29 IV 0813 Polyethylene Glycol 17 GM DAILY PRN 12/16 1015 AC PO Potassium Chloride 60 MEQ ONCE ONE 12/29 829 DC 12/29 PO 12/29 0831 0948 Ranolazine 500 MG BID 12/29 1042 AC PO Tamsulosin HCl 0.4 MG DAILY 12/29 1032 AC PO Results Last 48 Hrs of Labs/Mics: Laboratory Tests 12/29/16 0600: Sodium Cancelled, Potassium Cancelled, Chloride Cancelled, Carbon Dioxide Cancelled, Anion Gap Cancelled, BUN Cancelled, Creatinine Cancelled, BUN/ Creatinine Ratio Cancelled, CBC w Diff Cancelled, WBC Cancelled, RBC Cancelled, Hgb Cancelled, Hct Cancelled, MCV Cancelled, MCH Cancelled, RDW Cancelled, Plt Count Cancelled, MPV Cancelled, PUBS MCHC Cancelled 12/29/16 0500: Anion Gap 6, Estimated GFR > 60, Glucose 95, Calcium 8.0 L, Phosphorus 3.8, Magnesium 1.9, Total Bilirubin 0.7, AST 36, ALT 50, Albumin 2.2 L, CBC w Diff NO MAN DIFF REQ, RBC 3.57 L, MCV 90.7, MCH 30.3, RDW 14.5, MPV 11.3 H, Gran % 74.2, Lymphocytes % 14.1 L, Monocytes % 9.9 H, Eosinophils % 1.5, Basophils % 0.3, Absolute Granulocytes 5.3, Absolute Lymphocytes 1.0 L, Absolute Monocytes 0.7 H, Absolute Eosinophils 0.1, Absolute Basophils 0, PUBS MCHC 33.4 12/28/16 0525: Anion Gap 7, Estimated GFR > 60, Glucose 129 H, Calcium 8.0 L, Phosphorus 4.1, Magnesium 2.0, Total Bilirubin 0.7, AST 40, ALT 61, Albumin 2.3 L, CBC w Diff NO MAN DIFF REQ, RBC 3.86 L, MCV 90.7, MCH 30.1, RDW 14.3, MPV 10.9 H, Gran % 78.9 H, Lymphocytes % 10.5 L, Monocytes % 9.0, Eosinophils % 1.5, Basophils % 0.1, Absolute Granulocytes 7.0 H, Absolute Lymphocytes 0.9 L, Absolute Monocytes 0.8 H, Absolute Eosinophils 0.1, Absolute Basophils 0, PUBS MCHC 33.2 12/27/16 1350: Urinalysis LIGHT H, Urine Color YEL, Urine Clarity HAZY H, Urine pH 5.5, Ur Specific [place] >= 1.030, Urine Protein 30 H, Urine Ketones TRACE H, Urine Nitrite NEG, Urine Bilirubin NEG@ICTO, Urine Urobilinogen 0.2, Ur Leukocyte Esterase NEG, Ur Microscopic SEDIMENT EXAMINED, Urine RBC 5-10 H, Urine WBC 10- 15 H, Ur Epithelial Cells FEW, Urine Bacteria MOD H, Granular Casts 10-15 H, Urine Mucus FEW, Urine Hemoglobin TRACE-INTACT H, Urine Glucose NEG 12/27/16 1240: Troponin I 0.41 *H, APTT 35 Assessment/Plan Assessment/Plan Assessment: 1. Sepsis with persistent positive blood cultures 2. Non-ST elevation myocardial infarction-clinically stable at the moment. 3. ARDS 4. Multiple organ dysfunction syndrome 5. History of peripheral vascular disease 6. Ischemic cardiomyopathy-most recent ejection fraction 40-45% Recommendations: -Continue current medical regimen. -Continue Lasix 20 mg daily as recommended by Dr. Jimenez -Out of bed as tolerated -Awaiting transfer to N. telemetry -Eventual transfer to short-term rehabilitation pending. Continue telemetry? Yes
--- NOTE | 2016-12-29 12:29 | PN- Infect Dx ---
Subjective Subjective: Afebrile without complaints Objective Last 24 Hrs of Vital Signs/I&O Vital Signs Date Time Temp Pulse Resp B/P Pulse O2 O2 Flow FiO2 Ox Delivery Rate 12/29 0814 58 116/70 12/29 0800 Nasal 4.0L Cannula 12/29 0700 97.9 58 20 120/70 95 Nasal 4.0L Cannula 12/29 0000 98 Nasal 4.0L Cannula 12/29 0000 97.3 54 20 118/54 98 Nasal 4.0L Cannula 12/28 2151 74 158/64 12/28 1600 96 Nasal 4.0L Cannula 12/28 1600 96.8 63 24 130/60 96 Room Air 12/28 1534 Nasal 4.0L Cannula 12/28 1243 60 120/70 Intake & Output 12/29 1600 12/29 0812/29 0000 Intake Total 120 400 Output Total 100 125 Balance 20 275 Intake, Oral 120 400 Number 1 Bowel Movements Output, Urine 100 125 Physical Exam Other Physical Findings: He appears comfortable in no acute distress Lungs are clear Heart regular rhythm with no murmur Extremities no cyanosis, clubbing or edema; PICC in the left upper extremity with no inflammation at the site Results Last 24 Hours of Lab Results: Laboratory Tests 12/29 12/29 0600 0500 Chemistry Sodium (137 - 145 mmol/L) Cancelled 141 Potassium (3.5 - 5.1 mmol/L) Cancelled 3.4 L Chloride (98 - 107 mmol/L) Cancelled 104 Carbon Dioxide (22 - 30 mmol/L) Cancelled 30 Anion Gap (5 - 16) Cancelled 6 BUN (9 - 20 mg/dL) Cancelled 17 Creatinine (0.7 - 1.2 mg/dL) Cancelled 0.5 L Estimated GFR (>60 ml/min) > 60 BUN/Creatinine Ratio Cancelled Glucose (65 - 99 mg/dL) 95 Calcium (8.4 - 10.2 mg/dL) 8.0 L Phosphorus (2.5 - 4.5 mg/dL) 3.8 Magnesium (1.6 - 2.3 mg/dL) 1.9 Total Bilirubin (0.2 - 1.3 mg/dL) 0.7 AST (17 - 59 U/L) 36 ALT (21 - 72 U/L) 50 Albumin (3.5 - 5.0 g/dL) 2.2 L Hematology CBC w Diff Cancelled NO MAN DIFF REQ WBC (4.8 - 10.8 /CUMM) Cancelled 7.2 RBC (4.70 - 6.10 /CUMM) Cancelled 3.57 L Hgb (14.0 - 18.0 G/DL) Cancelled 10.8 L Hct (42 - 52 %) Cancelled 32.4 L MCV (80.0 - 94.0 FL) Cancelled 90.7 MCH (27.0 - 31.0 PG) Cancelled 30.3 RDW (11.5 - 14.5 %) Cancelled 14.5 Plt Count (130 - 400 /CUMM) Cancelled 267 MPV (7.4 - 10.4 FL) Cancelled 11.3 H Gran % (42.2 - 75.2 %) 74.2 Lymphocytes % (20.5 - 51.1 %) 14.1 L Monocytes % (1.7 - 9.3 %) 9.9 H Eosinophils % (0 - 5 %) 1.5 Basophils % (0.0 - 2.0 %) 0.3 Absolute Granulocytes (1.4 - 6.5 /CUMM) 5.3 Absolute Lymphocytes (1.2 - 3.4 /CUMM) 1.0 L Absolute Monocytes (0.10 - 0.60 /CUMM) 0.7 H Absolute Eosinophils (0.0 - 0.7 /CUMM) 0.1 Absolute Basophils (0.0 - 0.2 /CUMM) 0 PUBS MCHC (33.0 - 37.0 G/DL) Cancelled 33.4 Last 24 Hours of Evens Results: No recent cultures Assessment/Plan Impression: Stable with temperatures and white blood cell count remaining normal on Cefazolin now Day 14 of treatment for Staph aureus sepsis, [facility], possibly secondary to pneumonia, though source has not been clearly identified. Though GEORGI was negative feel that this may represent a complicated Staph aureus bacteremia, with persistent fevers and positive blood cultures even after 72 hours of treatment; therefore feel he should receive a 4 week course of IV antibiotics. Suggestion: 1. Continue Cefazolin to plan on a four-week course of treatment from his negative blood cultures (until January 17)
[2016-12-29 16:07] VITALS: BP 122/50
[2016-12-29 21:38] VITALS: BP 132/60
--- NOTE | 2016-12-29 23:01 | NUR ---
PT HAD AN 8 BEAT RUN OF VTACH. ASYMPTOMATIC. DR ROJAS NOTIFIED. NO FURTHER ORDERS AT THIS TIME. WILL CONTINUE TO CLOSELY MONITOR.
[2016-12-30 08:05] LABS: ABSOLUTE BASOPHIL COUNT 0 /CUMM (0.0-0.2); ABSOLUTE EOSINOPHIL COUNT 0.1 /CUMM (0.0-0.7); ABSOLUTE LYMPH COUNT 0.6 /CUMM (1.2-3.4); ABSOLUTE MONOCYTE COUNT 0.7 /CUMM (0.10-0.60); BASOPHIL % 0.2 % (0.0-2.0); EOSINOPHIL % 1.3 % (0-5); GRANULOCYTE % 81.3 % (42.2-75.2); HEMATOCRIT 32.9 % (42-52); MEAN CORPUSCULAR HGB 30.3 PG (27.0-31.0); MEAN CORPUSCULAR HGB CONC 33.3 G/DL (33.0-37.0); MEAN CORPUSCULAR VOLUME 90.9 FL (80.0-94.0); MEAN PLATELET VOLUME 10.6 FL (7.4-10.4); PLATELET COUNT 269 /CUMM (130-400); RBC DISTRIBUTION WIDTH 14.5 % (11.5-14.5); RED BLOOD CELL CT 3.62 /CUMM (4.70-6.10); WHITE BLOOD CELL COUNT 7.4 /CUMM (4.8-10.8)
--- NOTE | 2016-12-30 08:05 | Event Note ---
Event Note Event Note: Around 7:45 I was informed that patient has tachypnea,tachycardia and hypoxia. upon arrival patient was on non rebreather with o2 sat over 92%, RR 18, BP 180/ 90 and AK of 110. Physical exam AxO times 3, decreased breath sounds bilaterally , tachycardic with normal S1,S2. Stat CXR,EKG was ordered. Troponin and Mag was added on the morning labs and 20 mg IV lasix was administered as well. patient was feeling better on non rebreather and denies kurt chest pain, nausea,vomiting o dizziness. The patient was signed out to the morning for furthur management.
[2016-12-30 08:15] VITALS: BP 162/84
[2016-12-30 08:42] VITALS: BP 174/88
--- NOTE | 2016-12-30 08:43 | PN- Housestaff ---
See Addendum Subjective Follow-up For: Staph aureus sepsis possibly secondary to pneumonia ARDS, resolved NSTEMI Complaints: Lethargy, dyspnea Tele-Events Since Last Visit: NSR-ST, HR 58-133, BBB, 8 run Vtach at 2300. Subjective: Patient seen and examined at bedside this AM. He had acute onset dyspnea, diaphoresis and tachypnea along with tachycardia. Patient was placed on 100% non -rebreather by respiratory and noted to be saturating in low 90's. 20 IV lasix along with CXR (pending) and EKG/troponin were done. EKG showed isolated T wave inversion in lead 3 without other abnormalities. Discussed patient's case with Dr. Monreal and due to persistent tachycardia and patient reqiuiring 100% non- rebreather, transfer to ICU initiated. Patient remains full code. called at home but no answer. This has all been signed out to ICU team. Review of Systems Constitutional: Reports: diaphoresis, malaise, weakness. Denies: chills, fever. EENTM: Denies: visual changes, nasal congestion. Cardiovascular: Denies: chest pain, palpitations. Respiratory: Reports: short of breath. Denies: cough, wheezing. Gastrointestinal: Denies: abdominal pain, nausea, vomiting. Genitourinary: Denies: hematuria. Musculoskeletal: Denies: back pain. Skin: Denies: rash. Neurological/Psychological: Denies: confusion, headache, tremors. Objective Last 24 Hrs of Vital Signs/I&O Vital Signs Date Time Temp Pulse Resp B/P Pulse O2 O2 Flow FiO2 Ox Delivery Rate 12/30 0842 113 24 174/88 96 Non 100% ReBreather 12/30 0839 116 188/94 12/30 0815 97.4 94 20 162/84 96 Nasal 4.0L Cannula 12/30 0000 94 Nasal 4.0L Cannula 12/29 2138 98.0 87 18 132/60 93 Nasal Cannula 12/29 1607 97.0 65 18 122/50 93 Nasal 4.0L Cannula 12/29 1600 93 Nasal 4.0L Cannula / 1232 97.9 58 20 116/70 03/04 1232 97.9 58 20 116/70 Intake & Output 12/30 1600 12/30 0800 12/30 0000 Intake Total 120 120 Output Total 200 150 Balance -80 -30 Intake, IV 70 Intake, Oral 50 120 Output, Urine 200 150 Physical Exam General Appearance: Alert, Oriented X3, Moderate Distress Skin: No Rashes, No Breakdown, No Significant Lesion HEENT: Atraumatic, PERRLA, EOMI, Mucous Membr. moist/pink Neck: Supple, +2 Carotid Pulse wo Bruit Cardiovascular: Tachycardic, no added sounds Lungs: Decreased air entry bilaterally without overt wheezing or crackles Abdomen: Normal Bowel Sounds, Soft, No Tenderness Neurological: Normal Speech, Normal Tone Extremities: No Clubbing, No Cyanosis, No Edema Vascular: Pulses Symmetrical Current Medications: Current Medications Sig/Damon Start time Last Medication Dose Route Stop Time Status Admin Acetaminophen 650 MG .STK-MED ONE 12/29 2144 DC PO 12/29 214 Acetaminophen 650 MG .STK-MED ONE 12/29 0944 DC PO 12/29 0945 Acetaminophen 1,000 MG Q6P PRN 12/18 2145 AC 12/18 N/A 1 UNIT IV 2144 Acetaminophen 650 MG Q6P PRN 12/16 0015 AC 12/29 PO 2152 Aspirin 81 MG DAILY 12/16 1000 AC 12/29 PO 0813 Atorvastatin Calcium 40 MG 1700 12/16 1700 AC 12/29 PO 1608 Carvedilol 6.25 MG ONCE ONE 12/30 0900 DC PO 12/30 0901 Carvedilol 6.25 MG BID 12/18 2200 AC 12/30 PO 0839 Cefazolin Sodium 2 GM IQ8 12/22 0000 AC 12/30 N/A 1 UNIT IV 0010 Clopidogrel Bisulfate 75 MG DAILY 12/16 1000 AC 12/29 PO 0814 Finasteride 5 MG DAILY 12/29 1104 AC 12/29 PO 1232 Furosemide 20 MG ONCE ONE 12/30 0815 DC 12/30 IV 12/30 0816 0807 Furosemide 20 MG DAILY 12/28 1124 AC 12/29 PO 0814 Heparin Sodium 5,000 UNIT Q8 12/27 1400 AC 12/30 (Porcine) SC 0600 Insulin Aspart 0 AT BEDTIME 12/27 2200 AC 12/29 SC 2102 Insulin Aspart 0 TIDAC 12/27 1700 AC 12/29 SC 1609 Isosorbide 30 MG DAILY 12/29 1115 AC 12/29 Mononitrate PO 1232 Melatonin 5 MG AT BEDTIME 12/27 2200 AC 12/29 PO 2152 Morphine Sulfate 2 MG Q4-6 PRN PRN 12/26 2030 AC IV Nitroglycerin 0.5 GM Q6 12/26 2015 DC 12/29 TOP 0601 Pantoprazole Sodium 40 MG DAILY 12/18 1000 AC 12/29 IV 0813 Polyethylene Glycol 17 GM DAILY PRN 12/16 1015 AC PO Ranolazine 500 MG BID 12/29 1042 AC 12/29 PO 2152 Tamsulosin HCl 0.4 MG DAILY 12/29 1032 AC 12/29 PO 1543 Last 24 Hrs of Lab/Evens Results Last 24 Hrs of Labs/Mics: Laboratory Tests 12/30/16 0630: Anion Gap 3 L, Estimated GFR > 60, BUN/Creatinine Ratio 30.0 H, Magnesium 1.9, Troponin I 0.10, CBC w Diff NO MAN DIFF REQ, RBC 3.62 L, MCV 90.9, MCH 30.3, RDW 14.5, MPV 10.6 H, Gran % 81.3 H, Lymphocytes % 7.8 L, Monocytes % 9.4 H, Eosinophils % 1.3, Basophils % 0.2, Absolute Granulocytes 6.0, Absolute Lymphocytes 0.6 L, Absolute Monocytes 0.7 H, Absolute Eosinophils 0.1, Absolute Basophils 0, PUBS MCHC 33.3 Assessment/Plan Assessment: 76 y/o M with PMHx of CAD s/p CABG, PVD s/p LLE angioplasty and T2DM who is admitted with ARDS, now resolved, MSSA bacteremia 2/2 possible pneumonia and NSTEMI. #Staph aureus sepsis: Of unclear etiology but is likely secondary to pneumonia. Remains afebrile and without leukocytosis on day 15 of cefazolin. * ID following. Appreciate their recs. * Continue IV cefazolin for a total of 4 weeks from his negative blood cultures (12/20/16-01/17/17). #NSTEMI: Clinically stable. * Cardiology following. Appreciate their recs. * Discontinue prior to admission HCTZ 25 mg PO daily on discharge. * Continue Lasix 20 mg daily and add to discharge medications. * OOB as tolerated. * Discontinue nitroglycerin paste. Resume prior to admission Imdur 30 mg PO daily. * Resume prior to admission Ranexa 500 mg PO BID. #BPH: * Resume prior to admission tamsulosin 0.4 mg PO daily and finasteride 5 mg PO daily. #Acute respiratory distress * Patient noted to have increased O2 requirements this AM, required 100% non rebreather and remained tachycardic to 120's with diaphoresis/pallor * Troponin, mag, CXR pending as patient transfered to ICU * EKG showed NSR and isolated T wave inversion in lead 3, without ST changes * 20 mg IV lasix along with an additional dose of 6.25 mg PO coreg for tachycardia * Monitor respiratory status closely as patient if full code and may require invasive ventilation Diet: Heart Healthy DVT PPx: HSQ and ALPs CODE: FULL Problem List: 1. NSTEMI (non-ST elevated myocardial infarction) 2. ARDS (adult respiratory distress syndrome) 3. Pneumonia 4. MSSA (methicillin susceptible Staphylococcus aureus) septicemia 5. CAD (coronary artery disease) 6. BPH (benign prostatic hyperplasia) 7. Headache Pain Ratin Pain Location: n/a Pain Goal: Remain pain free Pain Plan: Tylenol 650 mg PO Q6H PRN for mild pain (scale 1-3) Tomorrow's Labs & Rationales: CBC to monitor H/H in the setting of anemia BMP to monitor K in the setting of hypokalemia
--- NOTE | 2016-12-30 09:38 | PN- Pulmonary ---
Subjective HPI/Critical Care Issues: Patient became acutely short of breath this morning without chest pain associated with hypoxia requiring BiPAP. Chest x-ray suggests worsening congestive heart failure though he has chronic densities and effusions. He denies chest pain. He feels more comfortable on BiPAP Objective Current Medications: Current Medications Sig/Damon Start time Last Medication Dose Route Stop Time Status Admin Acetaminophen 650 MG .STK-MED ONE 12/29 2144 DC PO 12/29 214 Acetaminophen 650 MG .STK-MED ONE 12/29 0944 DC PO 12/29 0945 Acetaminophen 1,000 MG Q6P PRN 12/18 2145 AC 12/18 N/A 1 UNIT IV 2144 Acetaminophen 650 MG Q6P PRN 12/16 0015 AC 12/29 PO 2152 Aspirin 81 MG DAILY 12/16 1000 AC 12/29 PO 0813 Atorvastatin Calcium 40 MG 1700 12/16 1700 AC 12/29 PO 1608 Carvedilol 6.25 MG ONCE ONE 12/30 0900 DC PO 12/30 0901 Carvedilol 6.25 MG BID 12/18 2200 AC 12/30 PO 0839 Cefazolin Sodium 2 GM IQ8 12/22 0000 AC 12/30 N/A 1 UNIT IV 0927 Clopidogrel Bisulfate 75 MG DAILY 12/16 1000 AC 12/29 PO 0814 Finasteride 5 MG DAILY 12/29 1104 AC 12/29 PO 1232 Furosemide 20 MG ONCE ONE 12/30 0815 DC 12/30 IV 12/30 0816 0807 Furosemide 20 MG DAILY 12/28 1124 AC 12/29 PO 0814 Heparin Sodium 5,000 UNIT Q8 12/27 1400 AC 12/30 (Porcine) SC 0600 Insulin Aspart 0 AT BEDTIME 12/27 2200 AC 12/29 SC 2102 Insulin Aspart 0 TIDAC 12/27 1700 AC 12/29 SC 1609 Isosorbide 30 MG DAILY 12/29 1115 AC 12/29 Mononitrate PO 1232 Melatonin 5 MG AT BEDTIME 12/27 2200 AC 12/29 PO 2152 Morphine Sulfate 2 MG Q4-6 PRN PRN 12/26 2030 AC IV Nitroglycerin 0.5 GM Q6 12/26 2015 DC 04 TOP 0601 Pantoprazole Sodium 40 MG DAILY 12/18 1000 AC 12/30 IV 0926 Polyethylene Glycol 17 GM DAILY PRN 12/16 1015 AC PO Ranolazine 500 MG BID 12/29 1042 AC 12/29 PO 2152 Tamsulosin HCl 0.4 MG DAILY 12/29 1032 AC 12/29 PO 1543 Vital Signs & I&O Last 24 Hrs of Vitals and I&O: Vital Signs Date Time Temp Pulse Resp B/P Pulse O2 O2 Flow FiO2 Ox Delivery Rate 12/30 0918 95 92 12/30 0915 94 BIPAP 45% 12/30 0842 113 24 174/88 96 Non 100% ReBreather 12/30 0839 116 188/94 12/30 0815 97.4 94 20 162/84 96 Nasal 4.0L Cannula 12/30 0800 97 Non 100% ReBreather 12/30 0000 94 Nasal 4.0L Cannula 12/29 2138 98.0 87 18 132/60 93 Nasal Cannula 12/29 1607 97.0 65 18 122/50 93 Nasal 4.0L Cannula 12/29 1600 93 Nasal 4.0L Cannula 12/29 1232 97.9 58 20 116/70 12/29 1232 97.9 58 20 116/70 Intake & Output 12/30 1600 12/30 0800 03 0000 Intake Total 120 120 Output Total 200 150 Balance -80 -30 Intake, IV 70 Intake, Oral 50 120 Output, Urine 200 150 Oxygen saturation on BiPAP 55% is 94% he is hematologically stable and tachycardia has improved on BiPAP exam of his chest shows diminished breath sounds scattered crackles without wheezing cardiac exam shows a regular S1 and S2 without murmurs abdomen is soft his calves are nontender Impression/Plan Impression/Plan Impression/Plan: 76-year-old gentleman recovering from sepsis was developed acute hypoxic respiratory failure this morning. Initial diagnosis is worsening congestive heart failure versus possible acute thromboembolic event. Recommendations: Empiric diuresis with Lasix. Cardiac evaluation. If he fails to prove would obtain CTA as he has normal renal function. Taper FiO2 his saturations allow on BiPAP. Obtain arterial blood gas on current BiPAP settings
--- NOTE | 2016-12-30 10:07 | RADIOLOGY REPORT ---
EXAMINATION: XR PORTABLE CHEST CLINICAL INFORMATION: Shortness of breath COMPARISON: December 28, 2016 and studies dating back to July 10, 2014 TECHNIQUE: Portable AP view of the chest was obtained. FINDINGS: There is increase in airspace disease from prior days study consistent with worsening pulmonary edema of cardiogenic or noncardiogenic etiology. No pneumothorax is seen. Patient status post median sternotomy. Left upper extremity PICC line seen in place with tip at cavoatrial junction. IMPRESSION: Increase in bilateral airspace disease consistent with pulmonary edema of cardiogenic or noncardiogenic etiology.
--- NOTE | 2016-12-30 11:06 | CT SCAN REPORT ---
EXAMINATION: CT ANGIOGRAM OF THE CHEST WITH AND WITHOUT CONTRAST (CT PULMONARY ANGIOGRAM FOR PE) CLINICAL INFORMATION: Reason for Study:
Presumptive Dx: r/o PE
Signs Symptoms: ACUTE SHORTNESS OF BREATH
COMPARISON: December 22, 2016 TECHNIQUE: Prior to contrast administration, noncontrast localization images were obtained. Subsequently, multidetector volumetric imaging was performed from the thoracic inlet to below the diaphragms following the administration of 65 mL Omnipaque 350 intravenous contrast. No contrast reaction reported Sagittal, coronal, and MIP oblique sagittal reformatted images were obtained on the CT workstation, uploaded to PACS, and reviewed. Total exam dose-length product 531.16 mGy-cm FINDINGS: QUALITY OF STUDY/CONTRAST BOLUS: Satisfactory. PULMONARY ARTERIES: No central or segmental pulmonary emboli. Pulmonary arteries are prominent. THORACIC AORTA: No aneurysm or dissection. LUNG: There is bibasilar atelectasis with bilateral large pleural effusions. There are changes of centrilobular emphysema within the upper lobes bilaterally. There are bilateral regions of groundglass opacity with appearance of mosaic perfusion. PLEURA: Bilateral large pleural effusions are present. No pneumothorax is seen. MEDIASTINUM: Coronary artery calcifications are present. Thoracic aortic calcifications are noted. No adrenal gland abnormality is seen. No pericardial effusion. There are prominent up to 1 cm short axis lymph nodes seen in the right and left paratracheal, left prevascular space, and aortopulmonic window. No definite hilar lymphadenopathy is appreciated. No evidence of septal bowing or right heart strain. Left upper extremity PICC line seen in place with tip at caval atrial junction. CHEST WALL/AXILLA: No axillary or internal mammary lymphadenopathy. OSSEOUS STRUCTURES: Status post median sternotomy. UPPER ABDOMEN: No adrenal gland masses evident. Remainder of visualized abdominal structures unremarkable. No reflux of contrast into the hepatic veins to suggest elevated right heart pressures. IMPRESSION: No evidence of acute pulmonary artery embolus. Large bilateral pleural effusions which appear somewhat larger than on prior examination of December 22, 2016. Airspace disease with the appearance of pulmonary edema. Emphysematous change upper lobes bilaterally.
--- NOTE | 2016-12-30 12:17 | NUR ---
RESPIRATORY DISTRESS: AT 07:45 AM PT CALLED FOR SHORTNESS OF BREATH. UPON ASSESSMENT PT DIAPHORETIC WITH SHALLOW BREATHS. VS TEMP 97.8 ORAL, PULSE 130 RR 36, BP 188/94 MANUALLY. O2 SAT 84% ON 4L VIA NC. INCREASED OXYGEN TO 6L AND PAGED RESPIRATORY THERAPIST. O2 SAT INCREASED TO 88% ON 6L VIA NC. PT DENIES CHEST PAIN BUT DESCRIBES DIFFICULTY BREATHING. LUNGS DIMINISHED THROUGHOUT UPON AUSCULTATION. DR SOUTH CALLED. RT PLACED PATIENT ON 100% NON-REBREATHER. O2 SAT INCREASED TO 98%. DR SOUTH AT BEDSIDE. MEDS GIVEN PER EMAR. CXR & EKG DONE. UPON REASSESSMENT VS PULSE 113, RR 24, BP 174/88. DR JAMES & DR NAIR AT BEDSIDE TO EVALUATE. PT TRANSFERRED TO [facility] AT THIS TIME. REPORT GIVEN TO CHUCHO CASTAÑEDA.
--- NOTE | 2016-12-30 13:09 | PN- Cardiology ---
Subjective Subjective: The patient was transferred to [address] [place] [address] yesterday. Early this morning, the patient had acute onset of respiratory distress requiring administration of BiPAP. He also had increased ventricular ectopy at that time with a short run of 6 beat wide complex tachycardia. He was transferred back to the ICU for BiPAP and further treatment. There was no apparent chest discomfort. The patient was also noted to be hypertensive at that time. Objective Vital Signs and I&Os Vital Signs Date Time Temp Pulse Resp B/P Pulse O2 O2 Flow FiO2 Ox Delivery Rate 12/30 1210 96 Nasal 4.0L Cannula 12/30 1209 72 96 12/30 1200 96 BIPAP 40% 12/30 0918 95 92 12/30 0915 94 BIPAP 45% 12/30 0842 113 24 174/88 96 Non 100% ReBreather 12/30 0839 116 188/94 12/30 0815 97.4 94 20 162/84 96 Nasal 4.0L Cannula 12/30 0800 97 Non 100% ReBreather 12/30 0000 94 Nasal 4.0L Cannula 12/29 2138 98.0 87 18 132/60 93 Nasal Cannula 12/29 1607 97.0 65 18 122/50 93 Nasal 4.0L Cannula 12/29 1600 93 Nasal 4.0L Cannula Intake & Output 12/30 1600 12/30 0800 / 0000 12/29 1600 12/29 0800 12/29 0000 Intake Total 120 120 560 120 400 Output Total 200 150 150 100 125 Balance -80 -30 410 20 275 Intake, IV 70 100 Intake, Oral 50 120 460 120 400 Number 1 Bowel Movements Output, Urine 200 150 150 100 125 Physical Exam: General: well developed/nourished, no apparent distress, intubated Head: Normocephalic, atraumatic Eyes: Normal Nose: Normal Neck: Supple, full range of motion, no thyromegaly, carotids normal bilaterally Heart: regular rhythm, S1, S2, 1 to 2/6 systolic murmur Lung: Bilateral rhonchi and crackles Abd: Soft, non-tender, no distention appreciated Extremities: No significant cyanosis or clubbing Neuro: Normal/nonfocal Current Medications: Current Medications Sig/Damon Start time Last Medication Dose Route Stop Time Status Admin Acetaminophen 650 MG .STK-MED ONE 12/29 2144 DC PO 12/29 2145 Acetaminophen 1,000 MG Q6P PRN 12/18 2145 AC 12/18 N/A 1 UNIT IV 2144 Acetaminophen 650 MG Q6P PRN 12/16 0015 AC 12/29 PO 2152 Aspirin 81 MG DAILY 12/16 1000 AC 12/30 PO 1041 Atorvastatin Calcium 40 MG 1700 12/16 1700 AC 12/29 PO 1608 Carvedilol 6.25 MG ONCE ONE 12/30 0900 DC 12/30 PO 12/30 0901 1041 Carvedilol 6.25 MG BID 12/18 2200 AC 12/30 PO 0839 Cefazolin Sodium 2 GM IQ8 12/22 0000 AC 12/30 N/A 1 UNIT IV 0927 Clopidogrel Bisulfate 75 MG DAILY 12/16 1000 AC 12/30 PO 1041 Finasteride 5 MG DAILY 12/29 1104 AC 12/30 PO 1041 Furosemide 40 MG DAILY 12/31 1000 AC IV PUSH Furosemide 20 MG ONCE ONE 12/30 0945 DC 12/30 IV PUSH 12/30 0946 0959 Furosemide 20 MG ONCE ONE 12/30 0815 DC 12/30 IV 12/30 0816 0807 Furosemide 20 MG DAILY 12/28 1124 DC 12/29 PO 0814 Heparin Sodium 5,000 UNIT Q8 12/27 1400 AC 12/30 (Porcine) SC 0600 Insulin Aspart 0 AT BEDTIME 12/27 2200 AC 12/29 SC 2102 Insulin Aspart 0 TIDAC 12/27 1700 AC 12/30 SC 1133 Isosorbide 30 MG DAILY 12/29 1115 AC 12/30 Mononitrate PO 1041 Magnesium Sulfate 1 GM ONCE ONE 12/30 1000 AC 12/30 Dextrose/Water 100 ML IV 12/30 1359 1041 Melatonin 5 MG AT BEDTIME 12/27 2200 AC 12/29 PO 2152 Morphine Sulfate 2 MG Q4-6 PRN PRN 12/26 2030 AC IV Pantoprazole Sodium 40 MG DAILY 12/18 1000 AC 12/30 IV 0926 Polyethylene Glycol 17 GM DAILY PRN 12/16 1015 AC PO Ranolazine 500 MG BID 12/29 1042 AC 12/30 PO 1041 Tamsulosin HCl 0.4 MG DAILY 12/29 1032 AC 12/30 PO 1042 Results Last 48 Hrs of Labs/Mics: Laboratory Tests 12/30/16 1201: Troponin I Pending 12/30/16 1103: pH 7.45, pCO2 35, pO2 70 L, HCO3 24, ABG O2 Sat (Measured) 93.0 L, P-50 (Temp Corrected) N, Carboxyhemoglobin 1.1 L, O2 Concentration % 50, Temperature 97.4, Respiration Rate 28, O2 Delivery Method BIPAP, Vent Mode ST, Expiratory Pressure 6, Inspiratory Pressure 18, Phlebotomy Draw Site RIGHT RADIAL 12/30/16 0630: Anion Gap 3 L, Estimated GFR > 60, BUN/Creatinine Ratio 30.0 H, Magnesium 1.9, Troponin I 0.10, CBC w Diff NO MAN DIFF REQ, RBC 3.62 L, MCV 90.9, MCH 30.3, RDW 14.5, MPV 10.6 H, Gran % 81.3 H, Lymphocytes % 7.8 L, Monocytes % 9.4 H, Eosinophils % 1.3, Basophils % 0.2, Absolute Granulocytes 6.0, Absolute Lymphocytes 0.6 L, Absolute Monocytes 0.7 H, Absolute Eosinophils 0.1, Absolute Basophils 0, PUBS MCHC 33.3 12/29/16 0600: Sodium Cancelled, Potassium Cancelled, Chloride Cancelled, Carbon Dioxide Cancelled, Anion Gap Cancelled, BUN Cancelled, Creatinine Cancelled, BUN/ Creatinine Ratio Cancelled, CBC w Diff Cancelled, WBC Cancelled, RBC Cancelled, Hgb Cancelled, Hct Cancelled, MCV Cancelled, MCH Cancelled, RDW Cancelled, Plt Count Cancelled, MPV Cancelled, PUBS MCHC Cancelled 12/29/16 0500: Anion Gap 6, Estimated GFR > 60, Glucose 95, Calcium 8.0 L, Phosphorus 3.8, Magnesium 1.9, Total Bilirubin 0.7, AST 36, ALT 50, Albumin 2.2 L, CBC w Diff NO MAN DIFF REQ, RBC 3.57 L, MCV 90.7, MCH 30.3, RDW 14.5, MPV 11.3 H, Gran % 74.2, Lymphocytes % 14.1 L, Monocytes % 9.9 H, Eosinophils % 1.5, Basophils % 0.3, Absolute Granulocytes 5.3, Absolute Lymphocytes 1.0 L, Absolute Monocytes 0.7 H, Absolute Eosinophils 0.1, Absolute Basophils 0, PUBS MCHC 33.4 Assessment/Plan Assessment/Plan Assessment: 1. Recurrent, acute respiratory distress with evidence of slightly worsened congestive heart failure on chest x-ray 1. Sepsis with persistent positive blood cultures 2. Non-ST elevation myocardial infarction-clinically stable at the moment. 3. ARDS 4. Multiple organ dysfunction syndrome 5. History of peripheral vascular disease 6. Ischemic cardiomyopathy-most recent ejection fraction 40-45% Recommendations: -Continue current medical regimen. -Continue BiPAP as necessary -IV Lasix diuresis with close monitoring of intakes, outputs, daily weights, and laboratories -CTA of the chest shows no evidence of pulmonary embolus. Persistent relatively large bilateral pleural effusions are present. -Await further pulmonary input for consideration for thoracentesis to improve respiratory status -Please recheck her troponin 2 -If tolerated by heart rate, consider increasing carvedilol to 12.5 mg twice a day after the patient has been diuresed.. Continue telemetry? Yes
[2016-12-30 16:00] VITALS: BP 126/60
--- NOTE | 2016-12-30 18:10 | Event Note ---
Event Note Event Note: At 1210 HRS, patient was on BiPAP saturating well above 90%. He had already received additional 20 mg of IV Lasix after coming to the ICU. We tried taking him off BiPAP and placing a nasal cannula for oxygen delivery. He tolerated it well at 96%. He did not have any respiratory distress since then. Plan to increase carvedilol to 12.5 twice a day after diuresis, if his blood pressure permits.
--- NOTE | 2016-12-30 20:00 | NUR ---
PATIENT ALERT. REQUESTING BIPAP REST FOR 15 MINS. NO DYSPNEA NOTED,O2 SAT=95% ON BIPAP. RESPIRATORY NOTIFIED. PLACED INITIALLY ON 4L SAT=89-91%.PLACED ON 5L WITH SAT OF 96%. NO DYSPNEA NOTED.DENIES FEELING SOB. MONITOR SINUS RHYTHM AT RATE OF 72.VOIDS IN URINAL.
[2016-12-31] VITALS: BP 124/50
[2016-12-31 04:57] LABS: ABSOLUTE BASOPHIL COUNT 0 /CUMM (0.0-0.2); ABSOLUTE EOSINOPHIL COUNT 0.1 /CUMM (0.0-0.7); ABSOLUTE GRANULOCYTE CT 4.9 /CUMM (1.4-6.5); ABSOLUTE LYMPH COUNT 0.8 /CUMM (1.2-3.4); ABSOLUTE MONOCYTE COUNT 0.7 /CUMM (0.10-0.60); BASOPHIL % 0.2 % (0.0-2.0); EOSINOPHIL % 1.4 % (0-5); GRANULOCYTE % 75.1 % (42.2-75.2); HEMATOCRIT 30.9 % (42-52); MEAN CORPUSCULAR HGB 30.3 PG (27.0-31.0); MEAN CORPUSCULAR HGB CONC 33.5 G/DL (33.0-37.0); MEAN CORPUSCULAR VOLUME 90.3 FL (80.0-94.0); PLATELET COUNT 268 /CUMM (130-400); RBC DISTRIBUTION WIDTH 14.7 % (11.5-14.5); RED BLOOD CELL CT 3.42 /CUMM (4.70-6.10); WHITE BLOOD CELL COUNT 6.5 /CUMM (4.8-10.8)
[2016-12-31 05:01] LABS: PT 18.4 SEC (9.4-12.5)
--- NOTE | 2016-12-31 07:22 | PN- Resident CRCU ---
Subjective HPI/CRCU Issues: I followed up and examined the patient today. He was lying comfortably in the bed, not in acute distress, with oxygen flowing through nasal cannula. Vital signs stable, no overnight issues. Event: At around 0750 hrs, his respiratory rate started increasing to 30-32, his oxygen saturation was 90% via nasal cannula, an ABG was immediately obtained and the, patient was put on BiPAP ventilation, a stat portable chest x-ray was ordered, after which his respiratory condition improved drastically with lowered respiratory rate, oxygen saturations 96%. ABG at 756 this morning showed 7.48, 32, 58, 24, 92- acute on chronic hypoxic hypercarbic respiratory failure/alkalosis. Objective Vital Signs & I&O Last 8 Hrs of Vitals and I&O: Vital Signs Date Time Temp Pulse Resp B/P Pulse O2 O2 Flow FiO2 Ox Delivery Rate 12/31 1200 Nasal 6.0L Cannula 12/31 1200 96.9 70 20 120/60 96 Nasal 6.0L Cannula / 1035 77 148/68 03/06 1035 76 148/68 03/06 1035 74 148/68 03/06 1035 77 148/68 03/06 1033 80 98 03/06 0800 93 Nasal 6.0L Cannula / 0800 98.0 88 30 140/72 93 Nasal 6.0L Cannula 03/ 0759 93 03/06 0400 94 Nasal 6.0L Cannula / 0015 62 95 03/06 0000 96 Nasal 5.0L Cannula 03/ 0000 96.3 71 20 124/50 96 Nasal 5.0L Cannula 03/05 2149 79 22 153/72 03/05 2148 79 22 153/72 03/05 1999 96 Nasal 5.0L Cannula 03/05 1814 88 94 03/05 1641 95 Nasal 4.0L Cannula 03/05 1600 95 Nasal 4.0L Cannula 03/05 1600 98.2 86 26 126/60 95 Nasal 4.0L Cannula Intake & Output /06 1600 03/06 0800 03/06 0000 Intake Total 84 350 Output Total 250 275 Balance -166 75 Intake, IV 84 50 Intake, Oral 300 Output, Urine 250 275 Exam General Appearance: well developed/nourished, no apparent distress, alert, awake , comfortable Other Physical Findings: Head: Normocephalic, atraumatic Eyes: Pupils normal in size, regular, reacting to light Nose: Normal on inspection Neck: Supple, full range of motion, no thyromegaly Heart: regular rhythm Lung: crackles heard bilaterally, but less over lung bases, no wheeze Abd: Soft, non-tender, no distention appreciated Extremities: no change, no swelling, non tender Neuro: Normal reflex b/l Skin: Warm and dry Weaning Parameters NIF: 36 Minute Volume: 12 Resp rate: 25 Vt: 479 Heart Rate: 67 Weaning Schedule Start Time: 0938 Minute Volume: 9.80 Resp Rate: 20 Vt: 490 Heart Rate: 68 End Time: 1113 Minute Volume: 14.0 Resp Rate: 24 Vt: 585 Heart Rate: 69 Nutrition Nutrition: P.O. diet Current Medications: Current Medications Sig/Damon Start time Last Medication Dose Route Stop Time Status Admin Acetaminophen 650 MG .STK-MED ONE 12/31 2127 DC PO 12/30 212 Acetaminophen 1,000 MG Q6P PRN 12/18 2145 AC 12/18 N/A 1 UNIT IV 2144 Acetaminophen 650 MG Q6P PRN 12/16 0015 AC 12/30 PO 2132 Aspirin 81 MG DAILY 12/16 1000 AC 12/31 PO 1035 Atorvastatin Calcium 40 MG 1700 12/16 1700 AC 12/30 PO 1610 Carvedilol 6.25 MG BID 12/18 2200 AC 12/31 PO 1035 Cefazolin Sodium 2 GM IQ8 12/22 0000 AC 12/31 N/A 1 UNIT IV 0800 Clopidogrel Bisulfate 75 MG DAILY 12/16 1000 AC 12/31 PO 1035 Finasteride 5 MG DAILY 12/29 1104 AC 12/31 PO 1035 Furosemide 40 MG DAILY 12/31 1000 AC 12/31 IV PUSH 1035 Heparin Sodium 5,000 UNIT Q8 12/27 1400 DC 12/30 (Porcine) SC 1407 Insulin Aspart 0 AT BEDTIME 12/27 2199 AC 12/30 SC 2145 Insulin Aspart 0 TIDAC 12/27 1700 AC 12/30 SC 1615 Isosorbide 30 MG DAILY 12/29 1115 AC 12/31 Mononitrate PO 1035 Melatonin 5 MG AT BEDTIME 12/27 2200 AC 12/30 PO 2148 Morphine Sulfate 2 MG Q4-6 PRN PRN 12/26 2030 AC IV Pantoprazole Sodium 40 MG DAILY 12/18 1000 AC 12/31 IV 1034 Polyethylene Glycol 17 GM DAILY PRN 12/16 1015 AC PO Ranolazine 500 MG BID 12/29 1042 AC 12/31 PO 1035 Tamsulosin HCl 0.4 MG DAILY 12/29 1032 AC 12/31 PO 1035 CXR Findings: IMPRESSION: The pulmonary disease and pleural effusions appear slightly improved compared to 12/30/2016. DICTATED BY: LORENZA DURAN MD DATE/TIME DICTATED:12/31/16820 EVENT MGR:VANESSA DATE/TIME TRANSCRIBED:12/31/16820 Impression/Plan Impression/Problem List Impression: 76 y/o M with PMHx of CAD s/p CABG, PVD s/p LLE angioplasty and T2DM who is admitted with ARDS, now resolved, MSSA bacteremia 2/2 possible pneumonia and NSTEMI. He is being managed in the ICU for the following issues: #Staph aureus sepsis: Of unclear etiology but is likely secondary to pneumonia. Remains afebrile and without leukocytosis on day of cefazolin. * ID following. Appreciate their recs. * Continue IV cefazolin for a total of 4 weeks from his negative blood cultures (12/20/16-01/17/17). #NSTEMI: Clinically stable. * Cardiology following. Appreciate their recs. * Discontinue prior to admission HCTZ 25 mg PO daily on discharge. * Continue Lasix 20 mg daily and add to discharge medications. * OOB as tolerated. #BPH: * Resumed prior to admission tamsulosin 0.4 mg PO daily and finasteride 5 mg PO daily. #Acute respiratory distress * Patient noted to have increased O2 requirements this AM, with tachypnea upto 34/min. ABG, STAT portable CXR and ABG ordered while placing him on BiPAP machine. He received Lasix again and was able to get off BiPAP in few hours. * Monitor respiratory status closely as patient if full code and may require invasive ventilation Diet: Heart Healthy Diet DVT PPx: HSQ and ALPs CODE: FULL Problem List: 1. MODS (multiple organ dysfunction syndrome) 2. Sepsis 3. NSTEMI (non-ST elevated myocardial infarction) 4. PVD (peripheral vascular disease) with claudication 5. CAD (coronary artery disease) 6. BPH (benign prostatic hyperplasia) 7. MSSA (methicillin susceptible Staphylococcus aureus) septicemia Pain Ratin Tomorrow's Labs & Rationales: ICU lab bundle, CBC Plan DVT/Prophylaxis: pharmacological
[2016-12-31 08:00] VITALS: BP 140/72
--- NOTE | 2016-12-31 08:29 | RADIOLOGY REPORT ---
EXAMINATION: XR PORTABLE CHEST CLINICAL INFORMATION: Acute shortness of breath. Evaluate for worsening pleural effusion. COMPARISON: CXR and chest CT from 12/30/2016 TECHNIQUE: Portable AP view of the chest was obtained. FINDINGS: Mild interval improvement with decreased patchy opacity in both lungs from edema and/or infiltrates. Again noted is the large cardiac silhouette and prominent central pulmonary vessels in this patient who is status post remote coronary artery bypass graft surgery. Small pleural effusions are evident (left larger than right), and the effusions appear slightly decreased in size compared to 12/30/2016. The tip of the left arm peripherally inserted catheter terminates in the distal superior vena cava. No acute skeletal abnormalities. IMPRESSION: The pulmonary disease and pleural effusions appear slightly improved compared to 12/30/2016.
--- NOTE | 2016-12-31 08:55 | NUR ---
0800: RECEIVED PT IN BED. ALERT, ORIENTED. COMPLAINING OF SOB, RR 30-32. ON 6L NC, RESP CALLED, ABG DRAWN, PLACED ON BIPAP RATE 26 IPAP 18 EPAP 6 45% OXYGEN. LUNGS DIMINISHED. NSR ON MONITOR WITH OCCASSIONAL PVC'S. AFEBRILE. B/P STABLE. ABDOMEN SOFT, +BS. DENIES NAUSEA, +FLATUS. NPO FOR THORACENTESIS. VOIDING IN URINAL. SKIN INTACT. NO EDEMA. DENIES PAIN. ALPS ON. JOSE PICC IN PLACE WITH GAUZE PRESSURE DRESSING. DRESSING TO BE CHANGED TODAY. PT UNABLE TO TOLERATE ANY PHYSICAL ACTIVITY AT THIS TIME. WILL MONITOR.
--- NOTE | 2016-12-31 09:43 | NUR ---
MEDICATIONS ON HOLD FOR THORACENTESIS. IR TO COME AND DO BESIDE CHEST ULTRASOUND TO ASSESS NEED FOR THORA. WILL MONITOR. PT REMAINS ON BIPAP.
--- NOTE | 2016-12-31 10:22 | PN- CRCU ---
Subjective HPI/Critical Care Issues: pt seen and examined mildly hypertensive on bipap cxr with vascular congestion, improved effusions improved bedside thoracic ultrasound revealed small to moderate bilateral simple effusions feeling better overall Objective Current Medications: Current Medications Sig/Damon Start time Last Medication Dose Route Stop Time Status Admin Acetaminophen 650 MG .STK-MED ONE 12/31 2127 DC PO 12/30 212 Acetaminophen 1,000 MG Q6P PRN 12/18 2145 AC 12/18 N/A 1 UNIT IV 2144 Acetaminophen 650 MG Q6P PRN 12/16 0015 AC 12/30 PO 2132 Aspirin 81 MG DAILY 12/16 1000 AC 12/30 PO 1041 Atorvastatin Calcium 40 MG 1700 12/16 1700 AC 12/30 PO 1610 Carvedilol 6.25 MG BID 12/18 2200 AC 12/30 PO 2148 Cefazolin Sodium 2 GM IQ8 12/22 0000 AC 12/31 N/A 1 UNIT IV 0800 Clopidogrel Bisulfate 75 MG DAILY 12/16 1000 AC 12/30 PO 1041 Finasteride 5 MG DAILY 12/29 1104 AC 12/30 PO 1041 Furosemide 40 MG DAILY 12/31 1000 AC IV PUSH Furosemide 20 MG DAILY 12/28 1124 DC 12/29 PO 0814 Heparin Sodium 5,000 UNIT Q8 12/27 1400 DC 12/30 (Porcine) SC 1407 Insulin Aspart 0 AT BEDTIME 12/27 2200 AC 12/30 SC 2145 Insulin Aspart 0 TIDAC 12/27 1700 AC 12/30 SC 1615 Isosorbide 30 MG DAILY 12/29 1115 AC 12/30 Mononitrate PO 1041 Magnesium Sulfate 1 GM ONCE ONE 12/30 1000 DC 12/30 Dextrose/Water 100 ML IV 12/30 1359 1041 Melatonin 5 MG AT BEDTIME 12/27 2200 AC 12/30 PO 2148 Morphine Sulfate 2 MG Q4-6 PRN PRN 12/26 2030 AC IV Pantoprazole Sodium 40 MG DAILY 12/18 1000 AC 12/30 IV 0926 Polyethylene Glycol 17 GM DAILY PRN 12/16 1015 AC PO Ranolazine 500 MG BID 12/29 1042 AC 12/30 PO 2149 Tamsulosin HCl 0.4 MG DAILY 12/29 1032 AC 12/30 PO 1042 Vital Signs & I&O Last 24 Hrs of Vitals and I&O: Vital Signs Date Time Temp Pulse Resp B/P Pulse O2 O2 Flow FiO2 Ox Delivery Rate 12/31 08 93 Nasal 6.0L Cannula 12/31 08 98.0 88 30 140/72 93 Nasal 6.0L Cannula 12/31 0759 93 12/31 0400 94 Nasal 6.0L Cannula 12/31 0015 62 95 12/31 0000 96 Nasal 5.0L Cannula 12/31 0000 96.3 71 20 124/50 96 Nasal 5.0L Cannula 12/30 2149 79 22 153/72 12/30 2148 79 22 153/72 12/30 2000 96 Nasal 5.0L Cannula 12/30 1814 88 94 12/30 1641 95 Nasal 4.0L Cannula 12/30 1600 95 Nasal 4.0L Cannula 12/30 1600 98.2 86 26 126/60 95 Nasal 4.0L Cannula 12/30 1210 96 Nasal 4.0L Cannula 12/30 1209 72 96 12/30 1200 96 BIPAP 40% Intake & Output 12/31 1600 12/31 0800 12/31 0000 Intake Total 84 350 Output Total 250 275 Balance -166 75 Intake, IV 84 50 Intake, Oral 300 Output, Urine 250 275 Exam Other Physical Findings: gen awake, on bipap heent ncat cvs s1, s2 lungs rhonchi, diminished bs at bases abd soft, bs+ ext no edema Results Last 24 Hrs of Lab Results: Laboratory Tests 12/31/16 0756: pH 7.48 H, pCO2 32 L, pO2 58 L, HCO3 24, ABG O2 Sat (Measured) 92.0 L, P-50 (Temp Corrected) YES, Carboxyhemoglobin 0.7 L, O2 Concentration % 6L, Temperature 96.3 L, O2 Delivery Method NC, Phlebotomy Draw Site RIGHT RADIAL 12/31/16 0500: Troponin I Cancelled 12/31/16 0400: Anion Gap 5, Estimated GFR > 60, Glucose 126 H, Calcium 8.0 L, Phosphorus 3.7, Magnesium 1.9, Total Bilirubin 0.6, AST 37, ALT 53, Troponin I 0.13 *H, Albumin 2.2 L, PT 18.4 H, INR 1.76 H, CBC w Diff NO MAN DIFF REQ, RBC 3.42 L, MCV 90.3, MCH 30.3, RDW 14.7 H, MPV 10.0, Gran % 75.1, Lymphocytes % 12.6 L, Monocytes % 10.7 H, Eosinophils % 1.4, Basophils % 0.2, Absolute Granulocytes 4.9, Absolute Lymphocytes 0.8 L, Absolute Monocytes 0.7 H, Absolute Eosinophils 0.1, Absolute Basophils 0, PUBS MCHC 33.5 12/31/16 0045: Troponin I 0.16 *H 12/30/16 1820: Troponin I 0.16 *H 12/30/16 1201: Troponin I 0.11 *H 12/30/16 1103: pH 7.45, pCO2 35, pO2 70 L, HCO3 24, ABG O2 Sat (Measured) 93.0 L, P-50 (Temp Corrected) N, Carboxyhemoglobin 1.1 L, O2 Concentration % 50, Temperature 97.4, Respiration Rate 28, O2 Delivery Method BIPAP, Vent Mode ST, Expiratory Pressure 6, Inspiratory Pressure 18, Phlebotomy Draw Site RIGHT RADIAL Impression/Plan Impression/Plan Impression/Plan: Impression 76 year old man -nstemi, systolic heart failure -staph aureus bacteremia -pulmonary edema now improved with diureiss and bipap Plan Respiratory -bipap as needed and nocturnal -pleural effusions are simple and bilateral small to moderate -will hold off on thoracentesis until diuresed aggressively -keep spo2 >92% ID -ID appreciated -PICC line, 4 weeks of abx CVS -f/u cardiology recommendations -aggressive diuresis Heme -montior h/h, coags Metabolic -ins/outs -monitor electrolytes Alimentary -diet when tolerates off bipap Neuro -no acute issues DVT prophylaxis at all times TTS 60 min
--- NOTE | 2016-12-31 10:26 | PN- Infect Dx ---
Subjective Subjective: Afebrile. He had been transferred out of the ICU but was moved back yesterday because of increased respiratory distress, requiring BiPAP. At present he denies any pain. Objective Last 24 Hrs of Vital Signs/I&O Vital Signs Date Time Temp Pulse Resp B/P Pulse O2 O2 Flow FiO2 Ox Delivery Rate 01/01 800 93 Nasal 6.0L Cannula 12/31 0800 98.0 88 30 140/72 93 Nasal 6.0L Cannula 12/31 0759 93 12/31 0400 94 Nasal 6.0L Cannula 12/31 0015 62 95 03 0000 96 Nasal 5.0L Cannula 12/31 0000 96.3 71 20 124/50 96 Nasal 5.0L Cannula 12/30 2149 79 22 153/72 12/30 2148 79 22 153/72 12/30 2000 96 Nasal 5.0L Cannula 12/30 1814 88 94 12/30 1641 95 Nasal 4.0L Cannula 12/30 1600 95 Nasal 4.0L Cannula 12/30 1600 98.2 86 26 126/60 95 Nasal 4.0L Cannula 12/30 1210 96 Nasal 4.0L Cannula 12/30 1209 72 96 12/30 1200 96 BIPAP 40% Intake & Output 12/31 1600 06 0800 12/31 0000 Intake Total 84 350 Output Total 250 275 Balance -166 75 Intake, IV 84 50 Intake, Oral 300 Output, Urine 250 275 Physical Exam Other Physical Findings: He appears comfortable on BiPAP Lungs decreased breath sounds bilaterally, right greater than left Heart regular rhythm with no murmur Extremities no cyanosis, clubbing or edema; PICC in the left upper extremity with no inflammation at the site Results Last 24 Hours of Lab Results: Laboratory Tests 12/31 12/31 0756 0500 Blood Gas pH (7.35 - 7.45 PH) 7.48 H pCO2 (35 - 45 TORR) 32 L pO2 (80 - 100 TORR) 58 L HCO3 (21 - 28 MEQ/L) 24 ABG O2 Sat (Measured) (>96.0 %) 92.0 L P-50 (Temp Corrected) YES Carboxyhemoglobin (1.5 - 5.0 %) 0.7 L O2 Concentration % 6L Temperature (97.0 - 100.0 FARH) 96.3 L O2 Delivery Method NC Chemistry Troponin I Cancelled Miscellaneous Phlebotomy Draw Site RIGHT RADIAL 03/06 03/06 03/05 0400 0049 1820 Chemistry Sodium (137 - 145 mmol/L) 137 Potassium (3.5 - 5.1 mmol/L) 3.8 Chloride (98 - 107 mmol/L) 104 Carbon Dioxide (22 - 30 mmol/L) 29 Anion Gap (5 - 16) 5 BUN (9 - 20 mg/dL) 16 Creatinine (0.7 - 1.2 mg/dL) 0.6 L Estimated GFR (>60 ml/min) > 60 Glucose (65 - 99 mg/dL) 126 H Calcium (8.4 - 10.2 mg/dL) 8.0 L Phosphorus (2.5 - 4.5 mg/dL) 3.7 Magnesium (1.6 - 2.3 mg/dL) 1.9 Total Bilirubin (0.2 - 1.3 mg/dL) 0.6 AST (17 - 59 U/L) 37 ALT (21 - 72 U/L) 53 Troponin I (<0.11 ng/ml) 0.13 *H 0.16 *H 0.16 *H Albumin (3.5 - 5.0 g/dL) 2.2 L Coagulation PT (9.4 - 12.5 SEC) 18.4 H INR (0.90 - 1.17) 1.76 H Hematology CBC w Diff NO MAN DIFF REQ WBC (4.8 - 10.8 /CUMM) 6.5 RBC (4.70 - 6.10 /CUMM) 3.42 L Hgb (14.0 - 18.0 G/DL) 10.3 L Hct (42 - 52 %) 30.9 L MCV (80.0 - 94.0 FL) 90.3 MCH (27.0 - 31.0 PG) 30.3 RDW (11.5 - 14.5 %) 14.7 H Plt Count (130 - 400 /CUMM) 268 MPV (7.4 - 10.4 FL) 10.0 Gran % (42.2 - 75.2 %) 75.1 Lymphocytes % (20.5 - 51.1 %) 12.6 L Monocytes % (1.7 - 9.3 %) 10.7 H Eosinophils % (0 - 5 %) 1.4 Basophils % (0.0 - 2.0 %) 0.2 Absolute Granulocytes (1.4 - 6.5 /CUMM) 4.9 Absolute Lymphocytes (1.2 - 3.4 /CUMM) 0.8 L Absolute Monocytes (0.10 - 0.60 /CUMM) 0.7 H Absolute Eosinophils (0.0 - 0.7 /CUMM) 0.1 Absolute Basophils (0.0 - 0.2 /CUMM) 0 PUBS MCHC (33.0 - 37.0 G/DL) 33.5 12/30 12/30 1201 1103 Blood Gas pH (7.35 - 7.45 PH) 7.45 pCO2 (35 - 45 TORR) 35 pO2 (80 - 100 TORR) 70 L HCO3 (21 - 28 MEQ/L) 24 ABG O2 Sat (Measured) (>96.0 %) 93.0 L P-50 (Temp Corrected) N Carboxyhemoglobin (1.5 - 5.0 %) 1.1 L O2 Concentration % 50 Temperature (97.0 - 100.0 FARH) 97.4 Respiration Rate (BPM) 28 O2 Delivery Method BIPAP Vent Mode ST Expiratory Pressure (CM H2O P) 6 Inspiratory Pressure (CM H2O P) 18 Chemistry Troponin I (<0.11 ng/ml) 0.11 *H Miscellaneous Phlebotomy Draw Site RIGHT RADIAL Last 24 Hours of Evens Results: No recent cultures Recent Imaging Studies: CTA of the chest December 30 revealed bibasilar atelectasis with bilateral large pleural effusions, increased from the previous study Chest x-ray December 31 decreased densities bilaterally Assessment/Plan Impression: Worsening respiratory status, felt to be secondary to CHF, with increasing bilateral pleural effusions on the recent CT scan with plans for thoracentesis later today. He remains afebrile with white blood cell count normal on Cefazolin now Day 16 of treatment for Staph aureus sepsis, possibly secondary to pneumonia, though source has not been clearly identified. GEORGI was negative, but given the concern of a complicated Staph aureus bacteremia, with persistent fevers and positive blood cultures even after 72 hours of treatment, feel he should receive a 4 week course of IV antibiotics. Suggestion: 1. Await thoracentesis later today 2. Continue Cefazolin to plan on a four-week course of treatment from his negative blood cultures (until January 17)
--- NOTE | 2016-12-31 10:48 | NUR ---
PT TAKEN OFF BIPAP AND PLACED ON 6L NC BY RT SUSIE. PT STATES HE FEELS BETTER, DENIES SOB. SAT 95%. PT WAS ABLE TO TOLERATE THIN LIQUIDS AND MEDS WITH APPLE SAUCE. 40MG IV LASIX GIVEN, MCNEILL PLACED PER HOUSE STAFF FOR ACCURATE I/O.
--- NOTE | 2016-12-31 10:52 | NUR ---
BED SECURED AT [facility] FOR DISCHARGE.
--- NOTE | 2016-12-31 11:01 | NUR ---
MCNEILL PLACED AT THIS TIME. PT VOIDED 125 IN URINAL BEFORE MCNEILL PLACEMENT. UPON INSERTION 120ML OF CLEAR YELLOW URINE OUT.
[2016-12-31 12:00] VITALS: BP 120/60
[2016-12-31 16:00] VITALS: BP 158/62
--- NOTE | 2016-12-31 16:00 | NUR ---
ASSUMED CARE OF PATIENT, PATIENT AWAKE ALERT AND ORIENTED SITTING UP IN CHAIR. LUNGS CLEAR WITH SOME FAINT CRACKLES IN BASES. MONITOR NSR. ABD SOFT NON TENDER WITH GOOD BOWEL SOUNDS, TRANSFERRED TO BEDSIDE COMMMODE AND HAD NORMAL STOOL GUIAC NEGATIVE. MCNEILL INTACT DRAINING CLEAR URINE. SKIN INTACT.
--- NOTE | 2016-12-31 16:18 | PN- Cardiology ---
Subjective Subjective: The patient developed worsening respiratory distress requiring transfer to intensive care unit and BiPAP. Chest x-ray showed vascular congestion. Bedside ultrasound revealed small to moderate bilateral effusions. He is feeling better at this time. Shortness of breath improving. No chest pain. No palpitations Objective Vital Signs and I&Os Vital Signs Date Time Temp Pulse Resp B/P Pulse O2 O2 Flow FiO2 Ox Delivery Rate 12/31 1200 Nasal 6.0L Cannula / 1200 96.9 70 20 120/60 96 Nasal 6.0L Cannula / 1035 77 148/68 03/06 1035 76 148/68 03/06 1035 74 148/68 03/06 1035 77 148/68 03/ 1033 80 98 / 0800 93 Nasal 6.0L Cannula 12/31 0800 98.0 88 30 140/72 93 Nasal 6.0L Cannula 12/31 0759 93 / 0400 94 Nasal 6.0L Cannula / 0015 62 95 03/ 0000 96 Nasal 5.0L Cannula / 0000 96.3 71 20 124/50 96 Nasal 5.0L Cannula / 2149 79 22 153/72 03/05 2148 79 22 153/72 03/05 2000 96 Nasal 5.0L Cannula /05 1814 88 94 03/05 1641 95 Nasal 4.0L Cannula Intake & Output 12/31 1600 03/06 0800 03/06 0000 03/05 1600 03/05 0800 03/05 0000 Intake Total 724 84 350 270 120 120 Output Total 925 250 275 650 200 150 Balance -201 -166 75 -380 -80 -30 Intake, IV 124 84 50 150 70 Intake, Oral 600 300 120 50 120 Number 0 Bowel Movements Output, Urine 925 250 275 650 200 150 Physical Exam: Gen: The patient is in no acute distress HEENT: Normal nose, ears, and oropharynx. Pupils equal bilaterally. Conjunctiva normal. Neck: Supple with no JVD, no masses, and no thyromegaly Lungs: Bilateral rhonchi with normal respiratory effort Heart: RRR, S1, S2, 2/6 systolic murmur. No peripheral edema, 2+ pulses in the lower extremities bilaterally Abdomen: Soft, nontender, no masses. No hepatomegaly. No splenomegaly Extremities: No clubbing or cyanosis. Normal muscle strength in the upper and lower extremities Skin: Normal skin turgor with no skin ulcers or lesions noted. Current Medications: Current Medications Sig/Damon Start time Last Medication Dose Route Stop Time Status Admin Acetaminophen 650 MG .STK-MED ONE 12/31 2127 DC PO 12/30 2128 Acetaminophen 1,000 MG Q6P PRN 12/185 AC 12/18 N/A 1 UNIT IV 2144 Acetaminophen 650 MG Q6P PRN 12/16 0015 AC 12/30 PO 2132 Aspirin 81 MG DAILY 12/16 1000 AC 12/31 PO 1035 Atorvastatin Calcium 40 MG 1700 12/16 1700 AC 12/30 PO 1610 Carvedilol 6.25 MG BID 12/18 2200 AC 12/31 PO 1035 Cefazolin Sodium 2 GM IQ8 12/22 0000 AC 12/31 N/A 1 UNIT IV 0800 Clopidogrel Bisulfate 75 MG DAILY 12/16 1000 AC 12/31 PO 1035 Finasteride 5 MG DAILY 12/29 1104 AC 12/31 PO 1035 Furosemide 40 MG DAILY 12/31 1000 AC 12/31 IV PUSH 1035 Heparin Sodium 5,000 UNIT Q8 12/27 1400 DC 12/30 (Porcine) SC 1407 Insulin Aspart 0 AT BEDTIME 12/27 2200 AC 12/30 SC 2145 Insulin Aspart 0 TIDAC 12/27 1700 AC 12/30 SC 1615 Isosorbide 30 MG DAILY 12/29 1115 AC 12/31 Mononitrate PO 1035 Melatonin 5 MG AT BEDTIME 12/27 2200 AC 12/30 PO 2148 Morphine Sulfate 2 MG Q4-6 PRN PRN 12/26 2030 AC IV Pantoprazole Sodium 40 MG DAILY 12/18 1000 AC 12/31 IV 1034 Polyethylene Glycol 17 GM DAILY PRN 12/16 1015 AC PO Ranolazine 500 MG BID 12/29 1042 AC 12/31 PO 1035 Tamsulosin HCl 0.4 MG DAILY 12/29 1032 AC 12/31 PO 1035 Results Last 48 Hrs of Labs/Mics: Laboratory Tests 12/31/16 0756: pH 7.48 H, pCO2 32 L, pO2 58 L, HCO3 24, ABG O2 Sat (Measured) 92.0 L, P-50 (Temp Corrected) YES, Carboxyhemoglobin 0.7 L, O2 Concentration % 6L, Temperature 96.3 L, O2 Delivery Method NC, Phlebotomy Draw Site RIGHT RADIAL 12/31/16 0500: Troponin I Cancelled 12/31/16 0400: Anion Gap 5, Estimated GFR > 60, Glucose 126 H, Calcium 8.0 L, Phosphorus 3.7, Magnesium 1.9, Total Bilirubin 0.6, AST 37, ALT 53, Troponin I 0.13 *H, Albumin 2.2 L, PT 18.4 H, INR 1.76 H, CBC w Diff NO MAN DIFF REQ, RBC 3.42 L, MCV 90.3, MCH 30.3, RDW 14.7 H, MPV 10.0, Gran % 75.1, Lymphocytes % 12.6 L, Monocytes % 10.7 H, Eosinophils % 1.4, Basophils % 0.2, Absolute Granulocytes 4.9, Absolute Lymphocytes 0.8 L, Absolute Monocytes 0.7 H, Absolute Eosinophils 0.1, Absolute Basophils 0, PUBS MCHC 33.5 12/31/16 0045: Troponin I 0.16 *H 12/30/16 1820: Troponin I 0.16 *H 12/30/16 1201: Troponin I 0.11 *H 12/30/16 1103: pH 7.45, pCO2 35, pO2 70 L, HCO3 24, ABG O2 Sat (Measured) 93.0 L, P-50 (Temp Corrected) N, Carboxyhemoglobin 1.1 L, O2 Concentration % 50, Temperature 97.4, Respiration Rate 28, O2 Delivery Method BIPAP, Vent Mode ST, Expiratory Pressure 6, Inspiratory Pressure 18, Phlebotomy Draw Site RIGHT RADIAL 12/30/16 0630: Anion Gap 3 L, Estimated GFR > 60, BUN/Creatinine Ratio 30.0 H, Magnesium 1.9, Troponin I 0.10, CBC w Diff NO MAN DIFF REQ, RBC 3.62 L, MCV 90.9, MCH 30.3, RDW 14.5, MPV 10.6 H, Gran % 81.3 H, Lymphocytes % 7.8 L, Monocytes % 9.4 H, Eosinophils % 1.3, Basophils % 0.2, Absolute Granulocytes 6.0, Absolute Lymphocytes 0.6 L, Absolute Monocytes 0.7 H, Absolute Eosinophils 0.1, Absolute Basophils 0, PUBS MCHC 33.3 Microbiology 12/30 929 UPPER RESP: Surveillance Culture - COMP 03/05 0930 GI: Surveillance Culture - COMP Recent Imaging Studies: chest x-ray 12/31/16: The pulmonary disease and pleural effusions appear slightly improved compared to 12/30/2016. CTA chest December 30, 2016: No evidence of acute pulmonary artery embolus. Large bilateral pleural effusions which appear somewhat larger than on prior examination of December 22, 2016. Airspace disease with the appearance of pulmonary edema. Emphysematous change upper lobes bilaterally. Assessment/Plan Assessment/Plan Assessment: 1. Recurrent, acute respiratory distress with evidence of slightly worsened congestive heart failure on chest x-ray 1. Sepsis with persistent positive blood cultures 2. Non-ST elevation myocardial infarction-clinically stable at the moment. 3. ARDS 4. Multiple organ dysfunction syndrome 5. History of peripheral vascular disease 6. Ischemic cardiomyopathy-most recent ejection fraction 40-45% Plan: * Increase IV Lasix to 40 milligrams IV q.12 hours * follow input and output with daily weights * check basic metabolic profile daily * BiPAP as needed. Continue telemetry? Yes
[2017-01-01] VITALS: BP 120/48
[2017-01-01 04:43] LABS: ABSOLUTE BASOPHIL COUNT 0 /CUMM (0.0-0.2); ABSOLUTE EOSINOPHIL COUNT 0.1 /CUMM (0.0-0.7); ABSOLUTE GRANULOCYTE CT 4.3 /CUMM (1.4-6.5); ABSOLUTE LYMPH COUNT 0.9 /CUMM (1.2-3.4); ABSOLUTE MONOCYTE COUNT 0.7 /CUMM (0.10-0.60); BASOPHIL % 0.3 % (0.0-2.0); EOSINOPHIL % 1.7 % (0-5); HEMATOCRIT 30.7 % (42-52); MEAN CORPUSCULAR HGB 30.4 PG (27.0-31.0); MEAN CORPUSCULAR HGB CONC 33.7 G/DL (33.0-37.0); MEAN CORPUSCULAR VOLUME 90.4 FL (80.0-94.0); MEAN PLATELET VOLUME 9.4 FL (7.4-10.4); PLATELET COUNT 251 /CUMM (130-400); RBC DISTRIBUTION WIDTH 15.2 % (11.5-14.5); RED BLOOD CELL CT 3.39 /CUMM (4.70-6.10)
--- NOTE | 2017-01-01 06:52 | PN- Resident CRCU ---
Subjective HPI/CRCU Issues: I followed up and examined the patient today. He was lying comfortably in the bed, not in acute distress, with oxygen flowing through nasal cannula. Vital signs stable, no overnight issues. Objective Vital Signs & I&O Last 8 Hrs of Vitals and I&O: Vital Signs Date Time Temp Pulse Resp B/P Pulse O2 O2 Flow FiO2 Ox Delivery Rate 01/01 1600 96 Nasal 4.0L Cannula 01/01 1600 98.3 72 22 122/68 96 Nasal 4.0L Cannula 01/01 1200 96 Nasal 4.0L Cannula 01/01 1013 97.4 85 24 141/67 03/ 1013 97.4 85 24 141/67 / 1013 97.4 85 24 141/67 / 1013 97.4 85 24 141/67 / 0800 95 Nasal 5.0L Cannula 01/01 0800 97.4 80 20 146/70 95 Nasal 5.0L Cannula 01/01 0400 95 Nasal 6.0L Cannula 01/01 0000 96.9 69 18 120/48 96 Nasal 6.0L Cannula 01/01 0000 96 Nasal 6.0L Cannula 12/31 2228 96 Nasal 5.0L Cannula 12/31 2213 83 18 160/69 12/31 2158 81 20 161/57 12/31 2000 96 Nasal 6.0L Cannula Intake & Output 01/01 1600 01/01 0800 / 0000 Intake Total 384 100 650 Output Total 725 888 315 Balance -341 -788 335 Intake, IV 84 50 50 Intake, Oral 300 50 600 Number 1 2 Bowel Movements Output, Urine 725 888 315 Exam General Appearance: well developed/nourished, no apparent distress, alert, awake , comfortable Other Physical Findings: Head: Normocephalic, atraumatic Eyes: Pupils normal in size, regular, reacting to light Nose: Normal on inspection Neck: Supple, full range of motion, no thyromegaly Heart: regular rhythm Lung: crackles heard bilaterally, but less over lung bases, no wheeze Abd: Soft, non-tender, no distention appreciated Extremities: no change, no swelling, non tender Neuro: Normal reflex b/l Skin: Warm and dry Weaning Parameters NIF: 36 Minute Volume: 12 Resp rate: 25 Vt: 479 Heart Rate: 67 Weaning Schedule Start Time: 0938 Minute Volume: 9.80 Resp Rate: 20 Vt: 490 Heart Rate: 68 End Time: 1113 Minute Volume: 14.0 Resp Rate: 24 Vt: 585 Heart Rate: 69 Cates Site: urethral Still Needed? Yes Nutrition Nutrition: P.O. diet Current Medications: Current Medications Sig/Damon Start time Last Medication Dose Route Stop Time Status Admin Acetaminophen 650 MG .STK-MED ONE 12/31 2210 DC PO 12/31 2211 Acetaminophen 1,000 MG Q6P PRN 12/18 2145 AC 12/18 N/A 1 UNIT IV 2144 Acetaminophen 650 MG Q6P PRN 12/16 0015 AC 12/31 PO 2212 Aspirin 81 MG DAILY 12/16 1000 AC 01/01 PO 1013 Atorvastatin Calcium 40 MG 1700 12/16 1700 AC 01/01 PO 1624 Carvedilol 6.25 MG BID 12/18 2200 AC 01/01 PO 1013 Cefazolin Sodium 2 GM IQ8 12/22 0000 AC 01/01 N/A 1 UNIT IV 1624 Clopidogrel Bisulfate 75 MG DAILY 12/16 1000 AC 01/01 PO 1013 Finasteride 5 MG DAILY 12/29 1104 AC 01/01 PO 1013 Furosemide 40 MG BID 12/31 2200 AC 01/01 IV PUSH 1012 Furosemide 40 MG DAILY 12/31 1000 DC 12/31 IV PUSH 1035 Insulin Aspart 0 AT BEDTIME 12/27 2200 AC 12/31 ME 2213 Insulin Aspart 0 TIDAC 12/27 1700 AC 01/01 SC 1635 Isosorbide 30 MG DAILY 12/29 1115 AC 01/01 Mononitrate PO 1013 Magnesium Oxide 400 MG ONE ONE 01/01 0845 DC 01/01 PO 01/01 0846 1014 Melatonin 5 MG AT BEDTIME 12/27 2200 AC 12/30 PO 2148 Morphine Sulfate 2 MG Q4-6 PRN PRN 12/26 2030 AC IV Pantoprazole Sodium 40 MG DAILY 12/18 1000 AC 01/01 IV 1012 Polyethylene Glycol 17 GM DAILY PRN 12/16 1015 AC PO Potassium Chloride 20 MEQ DAILY 01/02 1000 AC PO Potassium Chloride 40 MEQ ONCE ONE 01/01 0845 DC 01/01 PO 01/01 0846 1014 Ranolazine 500 MG BID 12/29 1042 AC 01/01 PO 1013 Tamsulosin HCl 0.4 MG DAILY 12/29 1032 AC 01/01 PO 1013 CXR Findings: IMPRESSION: Stable examination demonstrating pulmonary edema and small pleural effusions, left greater than right. DICTATED BY: SHAMA CASTILLO MD DATE/TIME DICTATED:01/01/171034 EMISSIONS REPAIR TECHNICIAN:VANESSA DATE/TIME TRANSCRIBED:01/01/171034 Impression/Plan Impression/Problem List Impression: 76 y/o M with PMHx of CAD s/p CABG, PVD s/p LLE angioplasty and T2DM who is admitted with ARDS, now resolved, MSSA bacteremia 2/2 possible pneumonia and NSTEMI. He is being managed in the ICU for the following issues: #Staph aureus sepsis, resolving: Of unclear etiology but is likely secondary to pneumonia. Remains afebrile and without leukocytosis on day of cefazolin. * ID following. Appreciate their recs. * Continue IV cefazolin for a total of 4 weeks from his negative blood cultures (12/20/16-01/17/17). #NSTEMI: Clinically stable. * Cardiology following. Appreciate their recs. * Discontinue prior to admission HCTZ 25 mg PO daily on discharge. * Continue Lasix 40 mg twice daily IV * OOB as tolerated. #BPH: * Resumed prior to admission tamsulosin 0.4 mg PO daily and finasteride 5 mg PO daily. #Acute respiratory distress, resolved * Recovered from ARDS, but had two episodes of pulm edema * No issues over night. * Monitor respiratory status closely as patient if full code and may require invasive ventilation Diet: Heart Healthy Diet DVT PPx: HSQ and ALPs CODE: FULL Problem List: 1. MODS (multiple organ dysfunction syndrome) 2. NSTEMI (non-ST elevated myocardial infarction) 3. Sepsis 4. CAD (coronary artery disease) 5. MSSA (methicillin susceptible Staphylococcus aureus) septicemia 6. ARDS (adult respiratory distress syndrome) Pain Ratin Tomorrow's Labs & Rationales: ICU bundle for dyselectrolytemia, CBC for f/u of sepsis Plan DVT/Prophylaxis: pharmacological
[2017-01-01 08:00] VITALS: BP 146/70
--- NOTE | 2017-01-01 09:28 | NUR ---
REC'D THE PT AT 0810 SITTING UP IN BED EATING BREAKFAST. OFFERS NO C/O AND STATED, "I FEEL BETTER." PULLIAM AND IS A&OX3. PT IS IN A NSR WITHOUT ECTOPY PER THE BOLT CUTTER. PT HAS TRACE EDEMA TO THE LLE BUT NOT THE RLE. DR JESUS VALDES AWARE. TL BS ARE CLEAR BUT DIMINISHED THROUGHOUT WITH AN O2 SAT OF 95% ON A 5LNC, FRETTED INSTRUMENTS INSPECTOR DECREASED THE PT MARILEE 4LNC AT 0830 AND THE SAT IS CURRENTLY 92%, NO REWSP DISTRESS NOTED. ABD IS SOFT WITH NORMOACTIVE BOWEL SOUNDS. MCNEILL IN PLACE DRAINING 25ML/HR OF LIGHT MAX URINE-PT IS DUE FOR LASIX 40MG IV AT 1000. FSG WAS 99 BEFORE BREAKFAST-NO COVERAGE REQUIRED PER SLIDING SCALE.
--- NOTE | 2017-01-01 10:42 | RADIOLOGY REPORT ---
EXAMINATION: XR PORTABLE CHEST CLINICAL INFORMATION: Follow-up for ARDS and pulmonary edema. COMPARISON: Chest radiograph dated 12/31/2016. TECHNIQUE: Portable AP view of the chest was obtained. FINDINGS: The cardiac silhouette is stable in size and configuration. There is calcification of the aortic knob. There are sternotomy sutures. Lungs are essentially stable in appearance. There are small pleural effusions bilaterally. There is no pneumothorax. The pulmonary vasculature is unchanged. The left PICC is stable in position. IMPRESSION: Stable examination demonstrating pulmonary edema and small pleural effusions, left greater than right.
--- NOTE | 2017-01-01 11:01 | PN- Infect Dx ---
Subjective Subjective: Afebrile. He feels well today with no complaints. He has not required BiPAP for several days. Objective Last 24 Hrs of Vital Signs/I&O Vital Signs Date Time Temp Pulse Resp B/P Pulse O2 O2 Flow FiO2 Ox Delivery Rate 01/01 1013 97.4 85 24 141/67 01/01 1013 97.4 85 24 141/67 01/01 1013 97.4 85 24 141/67 01/01 1013 97.4 85 24 141/67 01/01 0800 95 Nasal 5.0L Cannula 01/01 0800 97.4 80 20 146/70 95 Nasal 5.0L Cannula 01/01 0400 95 Nasal 6.0L Cannula 01/01 0000 96.9 69 18 120/48 96 Nasal 6.0L Cannula 01/01 0000 96 Nasal 6.0L Cannula 12/31 2228 96 Nasal 5.0L Cannula 12/31 2213 83 18 160/69 12/31 2158 81 20 161/57 12/31 2000 96 Nasal 6.0L Cannula 12/31 1600 95 Nasal 6.0L Cannula 12/31 1600 97.3 60 16 158/62 95 Nasal 6.0L Cannula 12/31 1200 Nasal 6.0L Cannula 12/31 1200 96.9 70 20 120/60 96 Nasal 6.0L Cannula Intake & Output 01/01 1600 01/01 0800 01/01 0000 Intake Total 100 650 Output Total 888 315 Balance -788 335 Intake, IV 50 50 Intake, Oral 50 600 Number 2 Bowel Movements Output, Urine 888 315 Physical Exam Other Physical Findings: He appears comfortable in no acute distress Lungs bibasilar crackles Heart regular rhythm with no murmur Extremities no cyanosis, clubbing or edema; PICC in the left upper extremity with no inflammation at the site Results Last 24 Hours of Lab Results: Laboratory Tests 01/01 0400 Chemistry Sodium (137 - 145 mmol/L) 137 Potassium (3.5 - 5.1 mmol/L) 3.5 Chloride (98 - 107 mmol/L) 101 Carbon Dioxide (22 - 30 mmol/L) 30 Anion Gap (5 - 16) 6 BUN (9 - 20 mg/dL) 14 Creatinine (0.7 - 1.2 mg/dL) 0.6 L Estimated GFR (>60 ml/min) > 60 Glucose (65 - 99 mg/dL) 95 Calcium (8.4 - 10.2 mg/dL) 7.9 L Phosphorus (2.5 - 4.5 mg/dL) 3.8 Magnesium (1.6 - 2.3 mg/dL) 1.5 L Total Bilirubin (0.2 - 1.3 mg/dL) 0.7 AST (17 - 59 U/L) 49 ALT (21 - 72 U/L) 49 Albumin (3.5 - 5.0 g/dL) 2.1 L Hematology CBC w Diff NO MAN DIFF REQ WBC (4.8 - 10.8 /CUMM) 6.0 RBC (4.70 - 6.10 /CUMM) 3.39 L Hgb (14.0 - 18.0 G/DL) 10.3 L Hct (42 - 52 %) 30.7 L MCV (80.0 - 94.0 FL) 90.4 MCH (27.0 - 31.0 PG) 30.4 RDW (11.5 - 14.5 %) 15.2 H Plt Count (130 - 400 /CUMM) 251 MPV (7.4 - 10.4 FL) 9.4 Gran % (42.2 - 75.2 %) 72.0 Lymphocytes % (20.5 - 51.1 %) 14.6 L Monocytes % (1.7 - 9.3 %) 11.4 H Eosinophils % (0 - 5 %) 1.7 Basophils % (0.0 - 2.0 %) 0.3 Absolute Granulocytes (1.4 - 6.5 /CUMM) 4.3 Absolute Lymphocytes (1.2 - 3.4 /CUMM) 0.9 L Absolute Monocytes (0.10 - 0.60 /CUMM) 0.7 H Absolute Eosinophils (0.0 - 0.7 /CUMM) 0.1 Absolute Basophils (0.0 - 0.2 /CUMM) 0 PUBS MCHC (33.0 - 37.0 G/DL) 33.7 Last 24 Hours of Evens Results: No recent cultures Recent Imaging Studies: Chest January 01 no change with pulmonary edema and small pleural effusions Assessment/Plan Impression: Stable with improvement in his CHF, with thoracentesis not performed. He remains afebrile with white blood cell count normal on Cefazolin now Day 17 of treatment for Staph aureus sepsis, possibly secondary to pneumonia, though source has not been clearly identified. GEORGI was negative, but given the concern of a complicated Staph aureus bacteremia, with persistent fevers and positive blood cultures even after 72 hours of treatment, feel he should receive a 4 week course of IV antibiotics. Suggestion: 1. Would remove Cates catheter if okay with Cardiology 2. Continue Cefazolin to plan on a four-week course of treatment from his negative blood cultures (until January 17)
--- NOTE | 2017-01-01 14:23 | PN- Cardiology ---
Subjective Subjective: Feeling better. Shortness of breath improving. No chest pain. No palpitations. No diaphoresis. No lightheadedness or dizziness. No nausea or vomiting. Objective Vital Signs and I&Os Vital Signs Date Time Temp Pulse Resp B/P Pulse O2 O2 Flow FiO2 Ox Delivery Rate 01/01 1200 96 Nasal 4.0L Cannula 01/01 1013 97.4 85 24 141/67 03/ 1013 97.4 85 24 141/67 / 1013 97.4 85 24 141/67 01/01 1013 97.4 85 24 141/67 / 0800 95 Nasal 5.0L Cannula 01/01 0800 97.4 80 20 146/70 95 Nasal 5.0L Cannula 01/01 0400 95 Nasal 6.0L Cannula 01/01 0000 96.9 69 18 120/48 96 Nasal 6.0L Cannula 01/01 0000 96 Nasal 6.0L Cannula 12/31 2228 96 Nasal 5.0L Cannula 12/31 2213 83 18 160/69 12/31 2158 81 20 161/57 12/31 2000 96 Nasal 6.0L Cannula 12/31 1600 95 Nasal 6.0L Cannula 12/31 1600 97.3 60 16 158/62 95 Nasal 6.0L Cannula Intake & Output 01/01 1600 01/01 0800 07 0000 12/31 1600 12/31 0800 12/31 0000 Intake Total 100 650 724 84 350 Output Total 888 315 925 250 275 Balance -788 335 -201 -166 75 Intake, IV 50 50 124 84 50 Intake, Oral 50 600 600 300 Number 2 0 Bowel Movements Output, Urine 888 315 925 250 275 Physical Exam: Gen: The patient is in no acute distress HEENT: Normal nose, ears, and oropharynx. Pupils equal bilaterally. Conjunctiva normal. Neck: Supple with no JVD, no masses, and no thyromegaly Lungs: Bilateral rhonchi with normal respiratory effort Heart: RRR, S1, S2, 2/6 systolic murmur. No peripheral edema, 2+ pulses in the lower extremities bilaterally Abdomen: Soft, nontender, no masses. No hepatomegaly. No splenomegaly Extremities: No clubbing or cyanosis. Normal muscle strength in the upper and lower extremities Skin: Normal skin turgor with no skin ulcers or lesions noted. Current Medications: Current Medications Sig/Damon Start time Last Medication Dose Route Stop Time Status Admin Acetaminophen 650 MG .STK-MED ONE 12/31 2210 DC PO 12/31 2211 Acetaminophen 1,000 MG Q6P PRN 12/18 2145 AC 12/18 N/A 1 UNIT IV 2144 Acetaminophen 650 MG Q6P PRN 12/16 0015 AC 12/31 PO 2212 Aspirin 81 MG DAILY 12/16 1000 AC 01/01 PO 1013 Atorvastatin Calcium 40 MG 1700 12/16 1700 AC 12/31 PO 1635 Carvedilol 6.25 MG BID 12/18 2200 AC 01/01 PO 1013 Cefazolin Sodium 2 GM IQ8 12/22 0000 AC 01/01 N/A 1 UNIT IV 0814 Clopidogrel Bisulfate 75 MG DAILY 12/16 1000 AC 01/01 PO 1013 Finasteride 5 MG DAILY 12/29 1104 AC 01/01 PO 1013 Furosemide 40 MG BID 12/31 2200 AC 01/01 IV PUSH 1012 Furosemide 40 MG DAILY 12/31 1000 DC 12/31 IV PUSH 1035 Insulin Aspart 0 AT BEDTIME 12/27 2200 12/31 SC 2213 Insulin Aspart 0 TIDAC 12/27 1700 01/01 SC 1211 Isosorbide 30 MG DAILY 12/29 1115 AC 01/01 Mononitrate PO 1013 Magnesium Oxide 400 MG ONE ONE 01/01 0845 DC 01/01 PO 01/01 0846 1014 Melatonin 5 MG AT BEDTIME 12/27 2200 AC 12/30 PO 2148 Morphine Sulfate 2 MG Q4-6 PRN PRN 12/26 2030 AC IV Pantoprazole Sodium 40 MG DAILY 12/18 1000 AC 01/01 IV 1012 Polyethylene Glycol 17 GM DAILY PRN 12/16 1015 AC PO Potassium Chloride 20 MEQ DAILY 01/02 1000 AC PO Potassium Chloride 40 MEQ ONCE ONE 01/01 0845 DC 01/01 PO 01/01 0846 1014 Ranolazine 500 MG BID 12/29 1042 AC 01/01 PO 1013 Tamsulosin HCl 0.4 MG DAILY 12/29 1032 AC 01/01 PO 1013 Results Last 48 Hrs of Labs/Mics: Laboratory Tests 01/01/17 0400: Anion Gap 6, Estimated GFR > 60, Glucose 95, Calcium 7.9 L, Phosphorus 3.8, Magnesium 1.5 L, Total Bilirubin 0.7, AST 49, ALT 49, Albumin 2.1 L, CBC w Diff NO MAN DIFF REQ, RBC 3.39 L, MCV 90.4, MCH 30.4, RDW 15.2 H, MPV 9.4, Gran % 72.0, Lymphocytes % 14.6 L, Monocytes % 11.4 H, Eosinophils % 1.7, Basophils % 0.3, Absolute Granulocytes 4.3, Absolute Lymphocytes 0.9 L, Absolute Monocytes 0.7 H, Absolute Eosinophils 0.1, Absolute Basophils 0, PUBS MCHC 33.7 12/31/16 0756: pH 7.48 H, pCO2 32 L, pO2 58 L, HCO3 24, ABG O2 Sat (Measured) 92.0 L, P-50 (Temp Corrected) YES, Carboxyhemoglobin 0.7 L, O2 Concentration % 6L, Temperature 96.3 L, O2 Delivery Method NC, Phlebotomy Draw Site RIGHT RADIAL 12/31/16 0600: Fluid WBC Cancelled, Fld Total RBCs Counted Cancelled 12/31/16 0600: Fluid Glucose Cancelled, Fluid Total Protein Cancelled, Fluid Albumin Cancelled, Fluid LDH Cancelled, Fluid Amylase Cancelled 12/31/16 0500: Troponin I Cancelled 12/31/16 0400: Anion Gap 5, Estimated GFR > 60, Glucose 126 H, Calcium 8.0 L, Phosphorus 3.7, Magnesium 1.9, Total Bilirubin 0.6, AST 37, ALT 53, Troponin I 0.13 *H, Albumin 2.2 L, PT 18.4 H, INR 1.76 H, CBC w Diff NO MAN DIFF REQ, RBC 3.42 L, MCV 90.3, MCH 30.3, RDW 14.7 H, MPV 10.0, Gran % 75.1, Lymphocytes % 12.6 L, Monocytes % 10.7 H, Eosinophils % 1.4, Basophils % 0.2, Absolute Granulocytes 4.9, Absolute Lymphocytes 0.8 L, Absolute Monocytes 0.7 H, Absolute Eosinophils 0.1, Absolute Basophils 0, PUBS MCHC 33.5 12/31/16 0045: Troponin I 0.16 *H 12/30/16 1820: Troponin I 0.16 *H Recent Imaging Studies: Stable examination demonstrating pulmonary edema and small pleural effusions, left greater than right. Assessment/Plan Assessment/Plan Assessment: 1. Recurrent, acute respiratory distress with CHF exacerbation 2. Sepsis with persistent positive blood cultures 3. Non-ST elevation myocardial infarction-clinically stable at the moment. 4. Multiple organ dysfunction syndrome improved 5. History of peripheral vascular disease 6. Ischemic cardiomyopathy-most recent ejection fraction 40-45% Plan: * Continue IV Lasix * follow input and output with daily weights * check basic metabolic profile daily Continue telemetry? Yes
[2017-01-01 16:00] VITALS: BP 122/68
--- NOTE | 2017-01-01 18:39 | PN- CRCU ---
Subjective HPI/Critical Care Issues: pt seen and examined bedside sonography performed LE vessels assessed with compressible vessels, no evidence of DVT pt feels much better overall dyspnea improving on 4-6L nc Objective Current Medications: Current Medications Sig/Damon Start time Last Medication Dose Route Stop Time Status Admin Acetaminophen 650 MG .STK-MED ONE 12/31 221 DC PO 12/31 2211 Acetaminophen 1,000 MG Q6P PRN 12/18 2145 AC 12/18 N/A 1 UNIT IV 2144 Acetaminophen 650 MG Q6P PRN 12/16 0015 AC 12/31 PO 2212 Aspirin 81 MG DAILY 12/16 1000 AC 01/01 PO 1013 Atorvastatin Calcium 40 MG 1700 12/16 1700 AC 01/01 PO 1624 Carvedilol 6.25 MG BID 12/18 2200 AC 01/01 PO 1013 Cefazolin Sodium 2 GM IQ8 12/22 0000 AC 01/01 N/A 1 UNIT IV 1624 Clopidogrel Bisulfate 75 MG DAILY 12/16 1000 AC 01/01 PO 1013 Finasteride 5 MG DAILY 12/29 1104 AC 01/01 PO 1013 Furosemide 40 MG BID 12/31 2200 AC 01/01 IV PUSH 1012 Furosemide 40 MG DAILY 12/31 1000 DC 12/31 IV PUSH 1035 Insulin Aspart 0 AT BEDTIME 12/27 2200 AC 12/31 DE 2213 Insulin Aspart 0 TIDAC 12/27 1700 AC 01/01 SC 1635 Isosorbide 30 MG DAILY 12/29 1115 AC 01/01 Mononitrate PO 1013 Magnesium Oxide 400 MG ONE ONE 01/01 0845 DC 01/01 PO 01/01 0846 1014 Melatonin 5 MG AT BEDTIME 12/27 2200 AC 12/30 PO 2148 Morphine Sulfate 2 MG Q4-6 PRN PRN 12/26 2030 AC IV Pantoprazole Sodium 40 MG DAILY 12/18 1000 AC 01/01 IV 1012 Polyethylene Glycol 17 GM DAILY PRN 12/16 1015 AC PO Potassium Chloride 20 MEQ DAILY 01/02 1000 AC PO Potassium Chloride 40 MEQ ONCE ONE 01/01 0845 DC 01/01 PO 01/01 0846 1014 Ranolazine 500 MG BID 12/29 1042 AC 01/01 PO 1013 Tamsulosin HCl 0.4 MG DAILY 12/29 1032 AC 01/01 PO 1013 Vital Signs & I&O Last 24 Hrs of Vitals and I&O: Vital Signs Date Time Temp Pulse Resp B/P Pulse O2 O2 Flow FiO2 Ox Delivery Rate 01/01 1600 96 Nasal 4.0L Cannula 01/01 1600 98.3 72 22 122/68 96 Nasal 4.0L Cannula 01/01 1200 96 Nasal 4.0L Cannula 01/01 1013 97.4 85 24 141/67 03/ 1013 97.4 85 24 141/67 / 1013 97.4 85 24 141/67 01/01 1013 97.4 85 24 141/67 01/01 0800 95 Nasal 5.0L Cannula 01/01 0800 97.4 80 20 146/70 95 Nasal 5.0L Cannula 01/01 0400 95 Nasal 6.0L Cannula 01/01 0000 96.9 69 18 120/48 96 Nasal 6.0L Cannula 01/01 0000 96 Nasal 6.0L Cannula 12/31 2228 96 Nasal 5.0L Cannula 12/31 2213 83 18 160/69 12/31 2158 81 20 161/57 12/31 2000 96 Nasal 6.0L Cannula Intake & Output 01/01 1600 01/01 0800 03 0000 Intake Total 384 100 650 Output Total 725 888 315 Balance -341 -788 335 Intake, IV 84 50 50 Intake, Oral 300 50 600 Number 1 2 Bowel Movements Output, Urine 725 888 315 Exam Other Physical Findings: gen awake heent ncat cvs s1, s2 lungs rhonchi, diminished bs at bases abd soft, bs+ ext no edema Results Last 24 Hrs of Lab Results: Laboratory Tests 01/01/17 0400: Anion Gap 6, Estimated GFR > 60, Glucose 95, Calcium 7.9 L, Phosphorus 3.8, Magnesium 1.5 L, Total Bilirubin 0.7, AST 49, ALT 49, Albumin 2.1 L, CBC w Diff NO MAN DIFF REQ, RBC 3.39 L, MCV 90.4, MCH 30.4, RDW 15.2 H, MPV 9.4, Gran % 72.0, Lymphocytes % 14.6 L, Monocytes % 11.4 H, Eosinophils % 1.7, Basophils % 0.3, Absolute Granulocytes 4.3, Absolute Lymphocytes 0.9 L, Absolute Monocytes 0.7 H, Absolute Eosinophils 0.1, Absolute Basophils 0, PUBS MCHC 33.7 Impression/Plan Impression/Plan Impression/Plan: Impression 76 year old man -nstemi, systolic heart failure -staph aureus bacteremia -pulmonary edema now improved with diureiss and bipap Plan Respiratory -bipap as needed and nocturnal -pleural effusions are simple and bilateral small to moderate -will hold off on thoracentesis until diuresed aggressively -keep spo2 >92% -check CXR am ID -ID appreciated -PICC line, 4 weeks of abx - Cefazolin CVS -f/u cardiology recommendations -aggressive diuresis Heme -montior h/h, coags Metabolic -ins/outs -monitor electrolytes Alimentary -diet when tolerates off bipap Neuro -no acute issues DVT prophylaxis at all times TTS 35 min
[2017-01-02] VITALS: BP 140/60
--- NOTE | 2017-01-02 00:43 | NUR ---
PT ALERT AND ORIENTED, DENIES PAIN AT THIS TIME. PLACED ON BIPAP 45%, SATURATION 94%. ABT CONT. IST DEGREE AVB 70'S, MANUAL BP 140/60. ABDOMEN SOFT, NORMOACTIVE BS. MCNEILL IN PLACE, ADEQUATE UO.
[2017-01-02 05:21] LABS: ABSOLUTE BASOPHIL COUNT 0 /CUMM (0.0-0.2); ABSOLUTE EOSINOPHIL COUNT 0.1 /CUMM (0.0-0.7); ABSOLUTE GRANULOCYTE CT 4.2 /CUMM (1.4-6.5); ABSOLUTE LYMPH COUNT 0.9 /CUMM (1.2-3.4); ABSOLUTE MONOCYTE COUNT 0.6 /CUMM (0.10-0.60); BASOPHIL % 0.5 % (0.0-2.0); HEMATOCRIT 31.4 % (42-52); MEAN CORPUSCULAR HGB 30.1 PG (27.0-31.0); MEAN CORPUSCULAR HGB CONC 33.3 G/DL (33.0-37.0); MEAN CORPUSCULAR VOLUME 90.6 FL (80.0-94.0); MEAN PLATELET VOLUME 9.6 FL (7.4-10.4); PLATELET COUNT 233 /CUMM (130-400); RBC DISTRIBUTION WIDTH 15.3 % (11.5-14.5); RED BLOOD CELL CT 3.47 /CUMM (4.70-6.10); WHITE BLOOD CELL COUNT 5.9 /CUMM (4.8-10.8)
--- NOTE | 2017-01-02 06:09 | NUR ---
PT PLACED ON 4L O2 AT 0400, SATURATION 95%. GOOD UO NOTED.
--- NOTE | 2017-01-02 06:52 | PN- Resident CRCU ---
Subjective HPI/CRCU Issues: Patient is in ICU for respiratory distress, status post extubation for ARDS, multiorgan failure, NSTEMI, improved. I followed up and examined the patient today. He was lying comfortably in the bed, not in acute distress, with oxygen flowing through nasal cannula. Vital signs stable, no overnight issues. 24 Hour Events: Patient was placed on BiPAP for a few hours last night, not because he was tachypneic or in respiratory distress, but as per patient's wishes subjectively. Objective Vital Signs & I&O Last 8 Hrs of Vitals and I&O: Vital Signs Date Time Temp Pulse Resp B/P Pulse O2 O2 Flow FiO2 Ox Delivery Rate 01/02 1021 97.3 70 24 148/69 / 1020 97.3 70 24 148/69 01/02 1020 97.3 70 24 148/69 / 1020 97.3 70 24 148/69 01/02 0800 93 Nasal 4.0L Cannula 01/02 08 97.3 78 20 136/54 93 Nasal 4.0L Cannula 01/02 0400 96 Nasal 4.0L Cannula 01/02 0356 63 98 / 0320 58 98 / 0012 69 97 03/08 0000 94 BIPAP 45% / 0000 97.1 72 20 140/60 94 BIPAP 45% 01/01 2159 98.1 75 23 153/60 / 2159 98.1 75 23 153/60 / 2000 95 Nasal 4.0L Cannula 01/01 1600 96 Nasal 4.0L Cannula 01/01 1600 98.3 72 22 122/68 96 Nasal 4.0L Cannula Intake & Output 01/02 1600 08 0800 03/08 0000 Intake Total 474 200 270 Output Total 650 1380 220 Balance -176 -1180 50 Intake, IV 74 50 Intake, Oral 400 200 220 Number 1 Bowel Movements Output, Urine 650 1380 220 Exam General Appearance: well developed/nourished, no apparent distress, alert, awake , comfortable Other Physical Findings: Head: Normocephalic, atraumatic Eyes: Pupils normal in size, regular, reacting to light Nose: Normal on inspection Neck: Supple, full range of motion, no thyromegaly Heart: regular rhythm Lung: crackles heard bilaterally, but less over lung bases, no wheeze Abd: Soft, non-tender, no distention appreciated Extremities: no change, no swelling, non tender Neuro: Normal reflex b/l Skin: Warm and dry Weaning Parameters NIF: 36 Minute Volume: 12 Resp rate: 25 Vt: 479 Heart Rate: 67 Weaning Schedule Start Time: 0938 Minute Volume: 9.80 Resp Rate: 20 Vt: 490 Heart Rate: 68 End Time: 1113 Minute Volume: 14.0 Resp Rate: 24 Vt: 585 Heart Rate: 69 Cates Still Needed? Yes Nutrition Nutrition: P.O. diet Current Medications: Current Medications Sig/Damon Start time Last Medication Dose Route Stop Time Status Admin Acetaminophen 650 MG .STK-MED ONE 01/01 2329 DC PO 01/01 2330 Acetaminophen 1,000 MG Q6P PRN 12/18 2145 AC 12/18 N/A 1 UNIT IV 2144 Acetaminophen 650 MG Q6P PRN 12/16 0015 AC 01/01 PO 2332 Aspirin 81 MG DAILY 12/16 1000 AC 01/02 PO 1021 Atorvastatin Calcium 40 MG 1700 12/16 1700 AC 01/01 PO 1624 Carvedilol 6.25 MG BID 12/18 2200 AC 01/02 PO 1020 Cefazolin Sodium 2 GM IQ8 12/22 0000 AC 01/02 N/A 1 UNIT IV 0834 Clopidogrel Bisulfate 75 MG DAILY 12/16 1000 AC 01/02 PO 1021 Finasteride 5 MG DAILY 12/29 1104 AC 01/02 PO 1021 Furosemide 40 MG BID 12/31 2200 AC 01/02 IV PUSH 1019 Insulin Aspart 0 AT BEDTIME 12/27 2200 AC 12/31 SC 2213 Insulin Aspart 0 TIDAC 12/27 1700 AC 01/02 SC 1154 Isosorbide 30 MG DAILY 12/29 1115 AC 01/02 Mononitrate PO 1020 Magnesium Oxide 400 MG DAILY 01/02 1000 DC PO Magnesium Oxide 400 MG BID 01/02 1000 AC 01/02 PO 1020 Melatonin 5 MG AT BEDTIME 12/27 2200 AC 12/30 PO 2148 Morphine Sulfate 2 MG Q4-6 PRN PRN 12/26 2030 AC IV Omeprazole 20 MG DAILY AC 01/02 0836 AC 01/02 PO 1020 Pantoprazole Sodium 40 MG DAILY 12/18 1000 DC 01/01 IV 1012 Polyethylene Glycol 17 GM DAILY PRN 12/16 1015 AC PO Potassium Chloride 20 MEQ DAILY 01/02 1000 DC PO Potassium Chloride 20 MEQ DAILY 01/02 1000 AC 01/02 PO 1020 Potassium Chloride 40 MEQ ONCE ONE 01/02 0730 CAN PO 01/02 0731 Ranolazine 500 MG BID 12/29 1042 AC 01/02 PO 1021 Tamsulosin HCl 0.4 MG DAILY 12/29 1032 AC 01/02 PO 1020 Impression/Plan Impression/Problem List Impression: 76 y/o M with PMHx of CAD s/p CABG, PVD s/p LLE angioplasty and T2DM who is admitted with ARDS, now resolved, MSSA bacteremia 2/2 possible pneumonia and NSTEMI. He is being managed in the ICU for the following issues: #Staph aureus sepsis, resolving: Of unclear etiology but is likely secondary to pneumonia. Remains afebrile and without leukocytosis on day of cefazolin. * ID following. Appreciate their recs. * Continue IV cefazolin for a total of 4 weeks from his negative blood cultures (12/20/16-01/17/17). #NSTEMI: Clinically stable. * Cardiology following. Appreciate their recs. * Discontinue prior to admission HCTZ 25 mg PO daily on discharge. * Continue Lasix 40 mg twice daily IV * OOB as tolerated. #BPH: * Resumed prior to admission tamsulosin 0.4 mg PO daily and finasteride 5 mg PO daily. #Acute respiratory distress, resolved * Recovered from ARDS, but had two episodes of pulm edema * No issues over night. * Monitor respiratory status closely as patient if full code and may require invasive ventilation Diet: Heart Healthy Diet DVT PPx: HSQ and ALPs CODE: FULL Problem List: 1. MODS (multiple organ dysfunction syndrome) 2. NSTEMI (non-ST elevated myocardial infarction) 3. MSSA (methicillin susceptible Staphylococcus aureus) septicemia 4. BPH (benign prostatic hyperplasia) Pain Ratin Pain Location: - Tomorrow's Labs & Rationales: ICU bundle, CBC to follow up for sepsis and dyselectrolytemia Plan DVT/Prophylaxis: pharmacological
[2017-01-02 08:00] VITALS: BP 136/54
--- NOTE | 2017-01-02 10:11 | PN- CRCU ---
Subjective HPI/Critical Care Issues: pt seen and examined doing well feels better no n/v/d/c no tele events fluid balance is negative Objective Current Medications: Current Medications Sig/Damon Start time Last Medication Dose Route Stop Time Status Admin Acetaminophen 650 MG .STK-MED ONE 01/01 2329 DC PO 01/01 2330 Acetaminophen 1,000 MG Q6P PRN 12/18 2145 AC 12/18 N/A 1 UNIT IV 2144 Acetaminophen 650 MG Q6P PRN 12/16 0015 AC 01/01 PO 2332 Aspirin 81 MG DAILY 12/16 1000 AC 01/01 PO 1013 Atorvastatin Calcium 40 MG 1700 12/16 1700 AC 01/01 PO 1624 Carvedilol 6.25 MG BID 12/18 2200 AC 01/01 PO 2159 Cefazolin Sodium 2 GM IQ8 12/22 0000 AC 01/02 N/A 1 UNIT IV 0834 Clopidogrel Bisulfate 75 MG DAILY 12/16 1000 AC 01/01 PO 1013 Finasteride 5 MG DAILY 12/29 1104 AC 01/01 PO 1013 Furosemide 40 MG BID 12/31 2200 AC 01/01 IV PUSH 2159 Insulin Aspart 0 AT BEDTIME 12/27 2200 AC 12/31 SC 2213 Insulin Aspart 0 TIDAC 12/27 1700 AC 01/01 SC 1635 Isosorbide 30 MG DAILY 12/29 1115 AC 01/01 Mononitrate PO 1013 Magnesium Oxide 400 MG DAILY 01/02 1000 DC PO Magnesium Oxide 400 MG BID 01/02 1000 AC PO Melatonin 5 MG AT BEDTIME 12/27 2200 AC 12/30 PO 2148 Morphine Sulfate 2 MG Q4-6 PRN PRN 12/26 2030 AC IV Omeprazole 20 MG DAILY AC 01/02 0836 AC PO Pantoprazole Sodium 40 MG DAILY 12/18 1000 DC 01/01 IV 1012 Polyethylene Glycol 17 GM DAILY PRN 12/16 1015 AC PO Potassium Chloride 20 MEQ DAILY 01/02 1000 DC PO Potassium Chloride 20 MEQ DAILY 01/02 1000 AC PO Potassium Chloride 40 MEQ ONCE ONE 01/02 0730 CAN PO 01/02 0731 Ranolazine 500 MG BID 12/29 1042 AC 01/01 PO 2159 Tamsulosin HCl 0.4 MG DAILY 12/29 1032 AC 01/01 PO 1013 Vital Signs & I&O Last 24 Hrs of Vitals and I&O: Vital Signs Date Time Temp Pulse Resp B/P Pulse O2 O2 Flow FiO2 Ox Delivery Rate 01/03 800 93 Nasal 4.0L Cannula 01/03 800 97.3 78 20 136/54 93 Nasal 4.0L Cannula 01/02 0400 96 Nasal 4.0L Cannula 01/02 0356 63 98 01/02 0320 58 98 01/02 0012 69 97 03 0000 94 BIPAP 45% 01/02 0000 97.1 72 20 140/60 94 BIPAP 45% 01/01 2159 98.1 75 23 153/60 01/01 2159 98.1 75 23 153/60 01/01 2000 95 Nasal 4.0L Cannula 01/01 1600 96 Nasal 4.0L Cannula 01/01 1600 98.3 72 22 122/68 96 Nasal 4.0L Cannula 01/01 1200 96 Nasal 4.0L Cannula 01/01 1013 97.4 85 24 141/67 01/01 1013 97.4 85 24 141/67 01/01 1013 97.4 85 24 141/67 / 1013 97.4 85 24 141/67 Intake & Output 01/02 1600 01/02 0800 01/02 0000 Intake Total 200 270 Output Total 1380 220 Balance -1180 50 Intake, IV 50 Intake, Oral 200 220 Output, Urine 1380 220 Exam Other Physical Findings: gen awake heent ncat cvs s1, s2 lungs rhonchi, diminished bs at bases abd soft, bs+ ext no edema Results Last 24 Hrs of Lab Results: Laboratory Tests 01/02/17 0355: Anion Gap 8, Estimated GFR > 60, Glucose 110 H, Calcium 8.0 L, Phosphorus 3.5, Magnesium 1.5 L, Total Bilirubin 0.6, AST 33, ALT 44, Albumin 2.2 L, CBC w Diff NO MAN DIFF REQ, RBC 3.47 L, MCV 90.6, MCH 30.1, RDW 15.3 H, MPV 9.6, Gran % 71.0, Lymphocytes % 16.0 L, Monocytes % 10.5 H, Eosinophils % 2.0, Basophils % 0.5, Absolute Granulocytes 4.2, Absolute Lymphocytes 0.9 L, Absolute Monocytes 0.6, Absolute Eosinophils 0.1, Absolute Basophils 0, PUBS MCHC 33.3 Impression/Plan Impression/Plan Impression/Plan: Impression 76 year old man -nstemi, systolic heart failure -staph aureus bacteremia -pulmonary edema now improved with diureiss and bipap Plan Respiratory -monitor off bipap for now -keep spo2 >92% -check CXR am 01/03 ID -ID appreciated -PICC line, 4 weeks of abx - Cefazolin -d/c brown if okay with nursing CVS -f/u cardiology recommendations -fluid net negative balance goal - achieved Heme -montior h/h, coags Metabolic -ins/outs -monitor electrolytes and replete as needed Alimentary -diet as tolerated Neuro -no acute issues DVT prophylaxis at all times TTS 35 min DG to tele if okay with cardiology
--- NOTE | 2017-01-02 11:23 | PN- Infect Dx ---
Subjective Subjective: Afebrile without complaints. He was placed on BiPAP for several hours last night. Objective Last 24 Hrs of Vital Signs/I&O Vital Signs Date Time Temp Pulse Resp B/P Pulse O2 O2 Flow FiO2 Ox Delivery Rate 01/02 1021 97.3 70 24 148/69 /08 1020 97.3 70 24 148/69 /08 1020 97.3 70 24 148/69 /08 1020 97.3 70 24 148/69 01/02 0800 93 Nasal 4.0L Cannula 01/02 08 97.3 78 20 136/54 93 Nasal 4.0L Cannula 01/02 0400 96 Nasal 4.0L Cannula 01/02 0356 63 98 01/02 0320 58 98 01/02 0012 69 97 01/02 0000 94 BIPAP 45% 01/02 0000 97.1 72 20 140/60 94 BIPAP 45% 01/01 2159 98.1 75 23 153/60 01/01 2159 98.1 75 23 153/60 01/01 2000 95 Nasal 4.0L Cannula 01/01 1600 96 Nasal 4.0L Cannula 01/01 1600 98.3 72 22 122/68 96 Nasal 4.0L Cannula 01/01 1200 96 Nasal 4.0L Cannula Intake & Output 01/02 1600 08 0800 08 0000 Intake Total 200 270 Output Total 1380 220 Balance -1180 50 Intake, IV 50 Intake, Oral 200 220 Output, Urine 1380 220 Physical Exam Other Physical Findings: He appears well in no acute distress Lungs bibasilar crackles Heart regular rhythm with no murmur Extremities no cyanosis, clubbing or edema; PICC in the left upper extremity with no inflammation at the site Results Last 24 Hours of Lab Results: Laboratory Tests 01/02 0355 Chemistry Sodium (137 - 145 mmol/L) 138 Potassium (3.5 - 5.1 mmol/L) 3.7 Chloride (98 - 107 mmol/L) 100 Carbon Dioxide (22 - 30 mmol/L) 30 Anion Gap (5 - 16) 8 BUN (9 - 20 mg/dL) 13 Creatinine (0.7 - 1.2 mg/dL) 0.6 L Estimated GFR (>60 ml/min) > 60 Glucose (65 - 99 mg/dL) 110 H Calcium (8.4 - 10.2 mg/dL) 8.0 L Phosphorus (2.5 - 4.5 mg/dL) 3.5 Magnesium (1.6 - 2.3 mg/dL) 1.5 L Total Bilirubin (0.2 - 1.3 mg/dL) 0.6 AST (17 - 59 U/L) 33 ALT (21 - 72 U/L) 44 Albumin (3.5 - 5.0 g/dL) 2.2 L Hematology CBC w Diff NO MAN DIFF REQ WBC (4.8 - 10.8 /CUMM) 5.9 RBC (4.70 - 6.10 /CUMM) 3.47 L Hgb (14.0 - 18.0 G/DL) 10.5 L Hct (42 - 52 %) 31.4 L MCV (80.0 - 94.0 FL) 90.6 MCH (27.0 - 31.0 PG) 30.1 RDW (11.5 - 14.5 %) 15.3 H Plt Count (130 - 400 /CUMM) 233 MPV (7.4 - 10.4 FL) 9.6 Gran % (42.2 - 75.2 %) 71.0 Lymphocytes % (20.5 - 51.1 %) 16.0 L Monocytes % (1.7 - 9.3 %) 10.5 H Eosinophils % (0 - 5 %) 2.0 Basophils % (0.0 - 2.0 %) 0.5 Absolute Granulocytes (1.4 - 6.5 /CUMM) 4.2 Absolute Lymphocytes (1.2 - 3.4 /CUMM) 0.9 L Absolute Monocytes (0.10 - 0.60 /CUMM) 0.6 Absolute Eosinophils (0.0 - 0.7 /CUMM) 0.1 Absolute Basophils (0.0 - 0.2 /CUMM) 0 PUBS MCHC (33.0 - 37.0 G/DL) 33.3 Last 24 Hours of Evens Results: No recent cultures Assessment/Plan Impression: Doing well with temperatures and white blood cell count remaining normal on Cefazolin now Day 18 of treatment for Staph aureus sepsis, possibly secondary to pneumonia, though source has not been clearly identified. GEORGI was negative, but given the concern of a complicated Staph aureus bacteremia, with persistent fevers and positive blood cultures even after 72 hours of treatment, feel he should receive a 4 week course of IV antibiotics. Suggestion: 1. Remove Cates catheter 2. Continue Cefazolin to plan on a four-week course of treatment from his negative blood cultures (until January 17)
--- NOTE | 2017-01-02 11:49 | PN- Cardiology ---
YAHAIRA DEE,JOHN 01/02/17 1138: Subjective Subjective: Patient seen and examined. Resting comfortably in his hospital bed, denies any chest pain, palpitations, diaphoresis, lightheadedness, shortness of breath. Review of Systems Constitutional: Denies: see HPI. Objective Vital Signs and I&Os Vital Signs Date Time Temp Pulse Resp B/P Pulse O2 O2 Flow FiO2 Ox Delivery Rate 01/02 1021 97.3 70 24 148/69 /08 1020 97.3 70 24 148/69 /08 1020 97.3 70 24 148/69 /08 1020 97.3 70 24 148/69 /08 0800 93 Nasal 4.0L Cannula 01/02 0800 97.3 78 20 136/54 93 Nasal 4.0L Cannula 01/02 0400 96 Nasal 4.0L Cannula 01/02 0356 63 98 01/02 0320 58 98 / 0012 69 97 03/08 0000 94 BIPAP 45% / 0000 97.1 72 20 140/60 94 BIPAP 45% 01/01 2159 98.1 75 23 153/60 03/07 2159 98.1 75 23 153/60 / 2000 95 Nasal 4.0L Cannula 01/01 1600 96 Nasal 4.0L Cannula / 1600 98.3 72 22 122/68 96 Nasal 4.0L Cannula 01/01 1200 96 Nasal 4.0L Cannula Intake & Output 01/02 1600 /08 0800 03/08 0000 03/07 1600 / 0800 03/ 0000 Intake Total 200 270 384 100 650 Output Total 1380 220 725 888 315 Balance -1180 50 -341 -788 335 Intake, IV 50 84 50 50 Intake, Oral 200 220 300 50 600 Number 1 2 Bowel Movements Output, Urine 1380 220 725 888 315 Physical Exam General Appearance: well developed/nourished, no apparent distress Ears, Nose, Throat: normal pharynx, normal ENT inspection Respiratory: normal breath sounds, chest non-tender Cardiovascular: regular rate/rhythm, systolic murmur Abdomen: normal bowel sounds, soft, non-tender Extremities: normal inspection, normal capillary refill, left upper arm PICC line w/o inflammation Current Medications: Current Medications Sig/Damon Start time Last Medication Dose Route Stop Time Status Admin Acetaminophen 650 MG .STK-MED ONE 01/01 2329 DC PO 01/01 2330 Acetaminophen 1,000 MG Q6P PRN 12/18 2145 AC 12/18 N/A 1 UNIT IV 2144 Acetaminophen 650 MG Q6P PRN 12/16 0015 AC 01/01 PO 2332 Aspirin 81 MG DAILY 12/16 1000 AC 01/02 PO 1021 Atorvastatin Calcium 40 MG 1700 12/16 1700 AC 01/01 PO 1624 Carvedilol 6.25 MG BID 12/18 2200 AC 01/02 PO 1020 Cefazolin Sodium 2 GM IQ8 12/22 0000 AC 01/02 N/A 1 UNIT IV 0834 Clopidogrel Bisulfate 75 MG DAILY 12/16 1000 AC 01/02 PO 1021 Finasteride 5 MG DAILY 12/29 1104 AC 01/02 PO 1021 Furosemide 40 MG BID 12/31 2200 AC 01/02 IV PUSH 1019 Insulin Aspart 0 AT BEDTIME 12/27 2200 AC 12/31 SC 2213 Insulin Aspart 0 TIDAC 12/27 1700 AC 01/01 SC 1635 Isosorbide 30 MG DAILY 12/29 1115 AC 01/02 Mononitrate PO 1020 Magnesium Oxide 400 MG DAILY 01/02 1000 DC PO Magnesium Oxide 400 MG BID 01/02 1000 AC 01/02 PO 1020 Melatonin 5 MG AT BEDTIME 12/27 2200 AC 12/30 PO 2148 Morphine Sulfate 2 MG Q4-6 PRN PRN 12/26 2030 AC IV Omeprazole 20 MG DAILY AC 01/02 0836 AC 01/02 PO 1020 Pantoprazole Sodium 40 MG DAILY 12/18 1000 DC 01/01 IV 1012 Polyethylene Glycol 17 GM DAILY PRN 12/16 1015 AC PO Potassium Chloride 20 MEQ DAILY 01/02 1000 DC PO Potassium Chloride 20 MEQ DAILY 01/02 1000 AC 01/02 PO 1020 Potassium Chloride 40 MEQ ONCE ONE 01/02 0730 CAN PO 01/02 0731 Ranolazine 500 MG BID 12/29 1042 AC 01/02 PO 1021 Tamsulosin HCl 0.4 MG DAILY 12/29 1032 AC 01/02 PO 1020 Results Last 48 Hrs of Labs/Mics: Laboratory Tests 01/02/17 0355: Anion Gap 8, Estimated GFR > 60, Glucose 110 H, Calcium 8.0 L, Phosphorus 3.5, Magnesium 1.5 L, Total Bilirubin 0.6, AST 33, ALT 44, Albumin 2.2 L, CBC w Diff NO MAN DIFF REQ, RBC 3.47 L, MCV 90.6, MCH 30.1, RDW 15.3 H, MPV 9.6, Gran % 71.0, Lymphocytes % 16.0 L, Monocytes % 10.5 H, Eosinophils % 2.0, Basophils % 0.5, Absolute Granulocytes 4.2, Absolute Lymphocytes 0.9 L, Absolute Monocytes 0.6, Absolute Eosinophils 0.1, Absolute Basophils 0, PUBS MCHC 33.3 01/01/17 0400: Anion Gap 6, Estimated GFR > 60, Glucose 95, Calcium 7.9 L, Phosphorus 3.8, Magnesium 1.5 L, Total Bilirubin 0.7, AST 49, ALT 49, Albumin 2.1 L, CBC w Diff NO MAN DIFF REQ, RBC 3.39 L, MCV 90.4, MCH 30.4, RDW 15.2 H, MPV 9.4, Gran % 72.0, Lymphocytes % 14.6 L, Monocytes % 11.4 H, Eosinophils % 1.7, Basophils % 0.3, Absolute Granulocytes 4.3, Absolute Lymphocytes 0.9 L, Absolute Monocytes 0.7 H, Absolute Eosinophils 0.1, Absolute Basophils 0, PUBS MCHC 33.7 Assessment/Plan Assessment/Plan Assessment- 1. Sepsis with positive blood cultures 2. NSTEMI 3. Recurrent hypoxic respiratory failure with congestive heart failure 4. Ischemic cardiomyopathy with an ejection fraction of 40-45% Plan- 1. Continue his IV Lasix, maintain net negative fluid balance 2. Continue his aspirin, Plavix, beta malorie, Imdur, Ranexa 3. Replete electrolytes to maintain potassium greater than 4, magnesium greater than 2 4. Continue monitoring creatinine daily given the he is on Lasix 5. Continue IV antibiotics as recommended by infectious disease 6. He might eventually need a cardiac catheterization Continue telemetry? Yes GREER DEE,GAEL Herring 01/02/17 8566: Assessment/Plan Assessment/Plan Addendum: Old records reviewed. Last available information shows that his last cath appeared to be in 2006. At that time, his GARVEY was patent but the other 3 SVGs were occluded. At this point in time, with the recent NSTEMI and subsequent episode of what appears to be flash pulmonary edema, he might benefit from recath to rule out jeopardized GARVEY, etc. Further discussion prior to discharge ,
[2017-01-02 16:00] VITALS: BP 122/66
[2017-01-03] VITALS: BP 133/58
[2017-01-03 06:47] LABS: ABSOLUTE BASOPHIL COUNT 0 /CUMM (0.0-0.2); ABSOLUTE EOSINOPHIL COUNT 0.1 /CUMM (0.0-0.7); ABSOLUTE GRANULOCYTE CT 3.6 /CUMM (1.4-6.5); ABSOLUTE MONOCYTE COUNT 0.6 /CUMM (0.10-0.60); BASOPHIL % 0.5 % (0.0-2.0); EOSINOPHIL % 2.1 % (0-5); GRANULOCYTE % 67.4 % (42.2-75.2); MEAN CORPUSCULAR HGB 29.8 PG (27.0-31.0); MEAN CORPUSCULAR HGB CONC 32.9 G/DL (33.0-37.0); MEAN CORPUSCULAR VOLUME 90.6 FL (80.0-94.0); MEAN PLATELET VOLUME 9.2 FL (7.4-10.4); PLATELET COUNT 215 /CUMM (130-400); RBC DISTRIBUTION WIDTH 15.4 % (11.5-14.5); RED BLOOD CELL CT 3.53 /CUMM (4.70-6.10); WHITE BLOOD CELL COUNT 5.4 /CUMM (4.8-10.8)
--- NOTE | 2017-01-03 07:05 | PN- Resident CRCU ---
Subjective HPI/CRCU Issues: Patient is in ICU for respiratory distress, status post extubation for ARDS, multiorgan failure, NSTEMI, improved. I followed up and examined the patient today. He was lying comfortably in the bed, not in acute distress, with oxygen flowing through nasal cannula. Vital signs stable, no overnight issues. Objective Vital Signs & I&O Last 8 Hrs of Vitals and I&O: Vital Signs Date Time Temp Pulse Resp B/P Pulse O2 O2 Flow FiO2 Ox Delivery Rate 01/04 800 97.7 77 18 136/60 92 Nasal 2.0L Cannula 01/04 800 92 Nasal 2.0L Cannula 01/03 0055 64 93 01/03 0000 97.6 82 22 133/58 94 Nasal 3.0L Cannula 01/03 0000 94 Nasal 3.0L Cannula 01/02 2148 75 120/60 01/02 2148 75 120/60 01/02 1600 98 Nasal 4.0L Cannula 01/02 1600 98.4 67 18 122/66 98 Nasal 4.0L Cannula 01/02 1503 Nasal 4.0L Cannula Intake & Output 01/03 1600 01/03 0800 01/03 0000 Intake Total 50 370 Output Total 1000 250 Balance -950 120 Intake, IV 0 50 Intake, Oral 50 320 Number 0 0 Bowel Movements Output, Urine 1000 250 Exam General Appearance: well developed/nourished, no apparent distress, alert, awake , comfortable Other Physical Findings: Head: Normocephalic, atraumatic Eyes: Pupils normal in size, regular, reacting to light Nose: Normal on inspection Neck: Supple, full range of motion, no thyromegaly Heart: regular rhythm Lung: crackles heard bilaterally, but less over lung bases, no wheeze Abd: Soft, non-tender, no distention appreciated Extremities: no change, no swelling, non tender Neuro: Normal reflex b/l Skin: Warm and dry Weaning Parameters NIF: 36 Minute Volume: 12 Resp rate: 25 Vt: 479 Heart Rate: 67 Weaning Schedule Start Time: 09 Minute Volume: 9.80 Resp Rate: 20 Vt: 490 Heart Rate: 68 End Time: 1113 Minute Volume: 14.0 Resp Rate: 24 Vt: 585 Heart Rate: 69 Cates Still Needed? Yes Nutrition Nutrition: P.O. diet Current Medications: Current Medications Sig/Damon Start time Last Medication Dose Route Stop Time Status Admin Acetaminophen 1,000 MG Q6P PRN 12/18 2145 AC 12/18 N/A 1 UNIT IV 2144 Acetaminophen 650 MG Q6P PRN 12/16 0015 AC 01/01 PO 2332 Aspirin 81 MG DAILY 12/16 1000 AC 01/03 PO 1009 Atorvastatin Calcium 40 MG 1700 12/16 1700 AC 01/02 PO 1637 Carvedilol 6.25 MG BID 12/18 2200 AC 01/03 PO 1009 Cefazolin Sodium 2 GM IQ8 12/22 0000 AC 01/03 N/A 1 UNIT IV 0750 Clopidogrel Bisulfate 75 MG DAILY 12/16 1000 AC 01/03 PO 1009 Finasteride 5 MG DAILY 12/29 1104 AC 01/03 PO 1009 Furosemide 40 MG BID 12/31 2200 AC 01/03 IV PUSH 1010 Insulin Aspart 0 AT BEDTIME 12/27 2200 AC 01/02 SC 2143 Insulin Aspart 0 TIDAC 12/27 1700 AC 01/03 SC 1158 Isosorbide 30 MG DAILY 12/29 1115 AC 01/03 Mononitrate PO 1009 Magnesium Oxide 400 MG BID 01/02 1000 AC 01/03 PO 1009 Melatonin 5 MG AT BEDTIME 12/27 2200 AC 01/02 PO 2140 Morphine Sulfate 2 MG Q4-6 PRN PRN 12/26 2030 AC IV Omeprazole 20 MG DAILY AC 01/02 0836 AC 01/03 PO 0601 Polyethylene Glycol 17 GM DAILY PRN 12/16 1015 AC PO Potassium Chloride 20 MEQ DAILY 01/02 1000 AC 01/03 PO 1009 Ranolazine 500 MG BID 12/29 1042 AC 01/03 PO 1010 Tamsulosin HCl 0.4 MG DAILY 12/29 1032 AC 01/03 PO 1009 CXR Findings: IMPRESSION: 1. Suspect interval slight progression in pulmonary edema and small bilateral pleural effusions. 2. No change in bibasilar subsegmental atelectasis. DICTATED BY: EKTA HARRIS MD DATE/TIME DICTATED:01/03/17826 DIRECTOR OF STAFF DEVELOPMENT:VANESSA DATE/TIME TRANSCRIBED:01/03/17826 Impression/Plan Impression/Problem List Impression: 76 y/o M with PMHx of CAD s/p CABG, PVD s/p LLE angioplasty and T2DM who is admitted with sepsis, ARDS, now resolved, MSSA bacteremia 2/2 possible pneumonia , MODS now resolved, and NSTEMI. He is being managed in the ICU for the following issues: #Staph aureus sepsis, resolving: Of unclear etiology but is likely secondary to pneumonia. Remains afebrile and without leukocytosis on day of cefazolin. * ID following. Appreciate their recs. * Continue IV cefazolin for a total of 4 weeks from his negative blood cultures (12/20/16-01/17/17). #NSTEMI: Clinically stable. * Cardiology following. Appreciate their recs. * Continue Lasix 40 mg twice daily PO from IV, per verbal discussion with Dr Jones. * OOB as tolerated. #BPH: * Resumed prior to admission tamsulosin 0.4 mg PO daily and finasteride 5 mg PO daily. #Acute respiratory distress, resolved * Recovered from ARDS, but had two episodes of pulm edema * No issues over night. * Continue Lasix 40 mg twice daily PO from IV, per verbal discussion with Dr Jones. We are working with physical therapist every day to assess the exact requirement of Mr. Mejia's discharge disposition. He has been progressively tolerating well. Currently, he has been recommended to be discharged in short-term rehabilitation for physical therapy and IV antibiotics through his PICC line. Diet: Heart Healthy Diet DVT PPx: HSQ and ALPs CODE: FULL Problem List: 1. Sepsis 2. MODS (multiple organ dysfunction syndrome) 3. NSTEMI (non-ST elevated myocardial infarction) 4. MSSA (methicillin susceptible Staphylococcus aureus) septicemia 5. ARDS (adult respiratory distress syndrome) 6. CAD (coronary artery disease) 7. PVD (peripheral vascular disease) with claudication 8. Elevated troponin I level 9. BPH (benign prostatic hyperplasia) Pain Ratin Pain Location: - Tomorrow's Labs & Rationales: ICU bundle, CBC to follow up electrolytes and sepsis Plan DVT/Prophylaxis: pharmacological
[2017-01-03 08:00] VITALS: BP 136/60
--- NOTE | 2017-01-03 08:32 | RADIOLOGY REPORT ---
EXAMINATION: XR PORTABLE CHEST CLINICAL INFORMATION: Follow-up of pulmonary edema and ARDS. Patient significantly better but still requiring oxygen via nasal cannula. COMPARISON: Several prior chest x-rays, most recent of which is dated 01/01/2017. TECHNIQUE: Portable AP semierect view of the chest was obtained. FINDINGS: Status post median sternotomy and CABG surgery. Cardiomediastinal silhouette borderline enlarged, unchanged. Calcification of aortic arch again seen. Persistent bilateral small pleural effusions and diffuse pulmonary edema again noted, perhaps slightly progressive when compared to the prior exam. Associated bibasilar opacities, likely related to subsegmental atelectasis are also seen, unchanged. Bony structures are unremarkable. IMPRESSION: 1. Suspect interval slight progression in pulmonary edema and small bilateral pleural effusions. 2. No change in bibasilar subsegmental atelectasis.
--- NOTE | 2017-01-03 11:30 | PN- Pulmonary ---
Subjective HPI/Critical Care Issues: pt seen and examined doing well tele hold no events dyspnea stable, no cp no n/v/d/c Objective Current Medications: Current Medications Sig/Damon Start time Last Medication Dose Route Stop Time Status Admin Acetaminophen 1,000 MG Q6P PRN 12/18 2145 AC 12/18 N/A 1 UNIT IV 2144 Acetaminophen 650 MG Q6P PRN 12/16 0015 AC 01/01 PO 2332 Aspirin 81 MG DAILY 12/16 1000 AC 01/03 PO 1009 Atorvastatin Calcium 40 MG 1700 12/16 1700 AC 01/02 PO 1637 Carvedilol 6.25 MG BID 12/18 2200 AC 01/03 PO 1009 Cefazolin Sodium 2 GM IQ8 12/22 0000 AC 01/03 N/A 1 UNIT IV 0750 Clopidogrel Bisulfate 75 MG DAILY 12/16 1000 AC 01/03 PO 1009 Finasteride 5 MG DAILY 12/29 1104 AC 01/03 PO 1009 Furosemide 40 MG BID 12/31 2200 AC 01/03 IV PUSH 1010 Insulin Aspart 0 AT BEDTIME 12/27 2200 AC 01/02 SC 2143 Insulin Aspart 0 TIDAC 12/27 1700 AC 01/02 SC 1154 Isosorbide 30 MG DAILY 12/29 1115 AC 01/03 Mononitrate PO 1009 Magnesium Oxide 400 MG BID 01/02 1000 AC 01/03 PO 1009 Melatonin 5 MG AT BEDTIME 12/27 2200 AC 01/02 PO 2140 Morphine Sulfate 2 MG Q4-6 PRN PRN 12/26 2030 AC IV Omeprazole 20 MG DAILY AC 01/02 0836 AC 01/03 PO 0601 Polyethylene Glycol 17 GM DAILY PRN 12/16 1015 AC PO Potassium Chloride 20 MEQ DAILY 01/02 1000 AC 01/03 PO 1009 Ranolazine 500 MG BID 12/29 1042 AC 01/03 PO 1010 Tamsulosin HCl 0.4 MG DAILY 12/29 1032 AC 01/03 PO 1009 Vital Signs & I&O Last 24 Hrs of Vitals and I&O: Vital Signs Date Time Temp Pulse Resp B/P Pulse O2 O2 Flow FiO2 Ox Delivery Rate 01/04 800 97.7 77 18 136/60 92 Nasal 2.0L Cannula 01/03 08 92 Nasal 2.0L Cannula 01/03 0055 64 93 01/03 0000 97.6 82 22 133/58 94 Nasal 3.0L Cannula 01/03 0000 94 Nasal 3.0L Cannula 01/028 75 120/60 01/02 2148 75 120/60 01/02 1600 98 Nasal 4.0L Cannula 01/02 1600 98.4 67 18 122/66 98 Nasal 4.0L Cannula 01/02 1503 Nasal 4.0L Cannula Intake & Output 01/03 1600 01/03 0800 01/03 0000 Intake Total 50 370 Output Total 1000 250 Balance -950 120 Intake, IV 0 50 Intake, Oral 50 320 Number 0 0 Bowel Movements Output, Urine 1000 250 Exam Other Physical Findings: gen awake heent ncat cvs s1, s2 lungs rhonchi, diminished bs at bases abd soft, bs+ ext no edema Results Last 24 Hrs of Lab Results: Laboratory Tests 01/03/17 0610: Anion Gap 6, Estimated GFR > 60, Glucose 116 H, Calcium 8.1 L, Phosphorus 4.0, Magnesium 1.6, Total Bilirubin 0.7, AST 20, ALT 38, Albumin 2.3 L, CBC w Diff NO MAN DIFF REQ, RBC 3.53 L, MCV 90.6, MCH 29.8, RDW 15.4 H, MPV 9.2, Gran % 67.4, Lymphocytes % 18.2 L, Monocytes % 11.8 H, Eosinophils % 2.1, Basophils % 0.5, Absolute Granulocytes 3.6, Absolute Lymphocytes 1.0 L, Absolute Monocytes 0.6, Absolute Eosinophils 0.1, Absolute Basophils 0, PUBS MCHC 32.9 L Impression/Plan Impression/Plan Impression/Plan: Impression 76 year old man -nstemi, systolic heart failure -staph aureus bacteremia -pulmonary edema now improved with diureiss and bipap Plan Respiratory -keep spo2 >92% ID -ID appreciated -PICC line, 4 weeks of abx - Cefazolin -d/c brown if okay with nursing CVS -f/u cardiology recommendations -fluid net negative balance goal - achieved Heme -montior h/h, coags Metabolic -ins/outs -monitor electrolytes and replete as needed Alimentary -diet as tolerated Neuro -no acute issues DVT prophylaxis at all times Tele hold
[2017-01-03 16:00] VITALS: BP 132/68
--- NOTE | 2017-01-03 19:33 | PN- Cardiology ---
Subjective Subjective: Clinically stable. No new CV symptoms. Awaiting transfer to telemetry Objective Vital Signs and I&Os Vital Signs Date Time Temp Pulse Resp B/P Pulse O2 O2 Flow FiO2 Ox Delivery Rate 01/03 1600 96 Nasal 2.0L Cannula 01/03 1600 98.0 71 22 132/68 96 Nasal 2.0L Cannula 01/04 800 97.7 77 18 136/60 92 Nasal 2.0L Cannula 01/04 800 92 Nasal 2.0L Cannula 01/03 0055 64 93 01/03 0000 97.6 82 22 133/58 94 Nasal 3.0L Cannula 01/03 0000 94 Nasal 3.0L Cannula 01/03 2148 75 120/60 01/03 2148 75 120/60 Intake & Output 01/03 0000 01/02 1600 01/02 0801/02 0000 Intake Total 675 50 370 474 200 270 Output Total 700 1000 220 461 2708 220 Balance -25 -950 120 -176 -1180 50 Intake, IV 75 0 50 74 50 Intake, Oral 600 50 320 400 200 220 Number 0 0 1 Bowel Movements Output, Urine 700 1000 793 376 7358 220 Physical Exam: General Appearance: well developed/nourished, no apparent distress Ears, Nose, Throat: normal pharynx, normal ENT inspection Respiratory: normal breath sounds, chest non-tender Cardiovascular: regular rate/rhythm, systolic murmur Abdomen: normal bowel sounds, soft, non-tender Extremities: normal inspection, normal capillary refill, left upper arm PICC line w/o inflammation Current Medications: Current Medications Sig/Damon Start time Last Medication Dose Route Stop Time Status Admin Acetaminophen 1,000 MG Q6P PRN 12/18 2144 AC 12/18 N/A 1 UNIT IV 214 Acetaminophen 650 MG Q6P PRN 12/16 0015 AC 01/01 PO 2332 Aspirin 81 MG DAILY 12/16 1000 AC 01/03 PO 1009 Atorvastatin Calcium 40 MG 1700 12/16 1700 AC 01/03 PO 1635 Carvedilol 6.25 MG BID 12/18 2200 AC 01/03 PO 1009 Cefazolin Sodium 2 GM IQ8 12/22 0000 AC 01/03 N/A 1 UNIT IV 1636 Clopidogrel Bisulfate 75 MG DAILY 12/16 1000 AC 01/03 PO 1009 Finasteride 5 MG DAILY 12/29 1104 AC 01/03 PO 1009 Furosemide 40 MG 7:30 AM, & 4:30 PM 01/03 1630 AC 01/03 PO 1635 Furosemide 40 MG BID 12/31 2200 DC 01/03 IV PUSH 1010 Insulin Aspart 0 AT BEDTIME 12/27 2200 AC 01/02 SC 2143 Insulin Aspart 0 TIDAC 12/27 1700 AC 01/03 SC 1158 Isosorbide 30 MG DAILY 12/29 1115 AC 01/03 Mononitrate PO 1009 Magnesium Oxide 400 MG BID 01/02 1000 AC 01/03 PO 1009 Melatonin 5 MG AT BEDTIME 12/27 2200 AC 01/02 PO 2140 Morphine Sulfate 2 MG Q4-6 PRN PRN 12/26 2030 AC IV Omeprazole 20 MG DAILY AC 01/02 0836 AC 01/03 PO 0601 Polyethylene Glycol 17 GM DAILY PRN 12/16 1015 AC PO Potassium Chloride 20 MEQ DAILY 01/02 1000 AC 01/03 PO 1009 Ranolazine 500 MG BID 12/29 1042 AC 01/03 PO 1010 Tamsulosin HCl 0.4 MG DAILY 12/29 1032 AC 01/03 PO 1009 Results Last 48 Hrs of Labs/Mics: Laboratory Tests 01/03/17 0610: Anion Gap 6, Estimated GFR > 60, Glucose 116 H, Calcium 8.1 L, Phosphorus 4.0, Magnesium 1.6, Total Bilirubin 0.7, AST 20, ALT 38, Albumin 2.3 L, CBC w Diff NO MAN DIFF REQ, RBC 3.53 L, MCV 90.6, MCH 29.8, RDW 15.4 H, MPV 9.2, Gran % 67.4, Lymphocytes % 18.2 L, Monocytes % 11.8 H, Eosinophils % 2.1, Basophils % 0.5, Absolute Granulocytes 3.6, Absolute Lymphocytes 1.0 L, Absolute Monocytes 0.6, Absolute Eosinophils 0.1, Absolute Basophils 0, PUBS MCHC 32.9 L 01/02/17 0355: Anion Gap 8, Estimated GFR > 60, Glucose 110 H, Calcium 8.0 L, Phosphorus 3.5, Magnesium 1.5 L, Total Bilirubin 0.6, AST 33, ALT 44, Albumin 2.2 L, CBC w Diff NO MAN DIFF REQ, RBC 3.47 L, MCV 90.6, MCH 30.1, RDW 15.3 H, MPV 9.6, Gran % 71.0, Lymphocytes % 16.0 L, Monocytes % 10.5 H, Eosinophils % 2.0, Basophils % 0.5, Absolute Granulocytes 4.2, Absolute Lymphocytes 0.9 L, Absolute Monocytes 0.6, Absolute Eosinophils 0.1, Absolute Basophils 0, PUBS MCHC 33.3 Assessment/Plan Assessment/Plan Assessment: 1. Recurrent, acute respiratory distress with CHF exacerbation 2. Sepsis with persistent positive blood cultures 3. Non-ST elevation myocardial infarction-clinically stable at the moment. 4. Multiple organ dysfunction syndrome improved 5. History of peripheral vascular disease 6. Ischemic cardiomyopathy-most recent ejection fraction 40-45% Recommendations: - COntinue current medical regimen - Transfer to telemetry - OOB and ambulate with PT evaluation. - STR pending Continue telemetry? Yes
[2017-01-03 22:48] VITALS: BP 150/70
--- NOTE | 2017-01-04 06:53 | PN- Housestaff ---
See Addendum Subjective Follow-up For: NSTEMI Systolic heart failure ARDS with acute respiratory distress Pulmonary edema Multiorgan failure Staph Aureus MSSA Sepsis Complaints: no complaints Tele-Events Since Last Visit: NSR HR 63-87 bpm, BBB, PVCs, PACs. Subjective: Patient seen and examined at bedside this AM. He is resting comfortably in bed without complaints, though he remains on 2 L NC and is not on oxygen at home. Patient denies fever, chills, chest pain, shortness of breath, abdominal pain. He does endorse mild difficulty on ambulation which he is working closely with PT for. Review of Systems Constitutional: Denies: chills, fever. EENTM: Denies: visual changes, nasal congestion. Cardiovascular: Denies: chest pain, palpitations. Respiratory: Denies: cough, short of breath. Gastrointestinal: Denies: abdominal pain. Genitourinary: Denies: dysuria. Musculoskeletal: Denies: back pain. Skin: Denies: rash. Neurological/Psychological: Denies: confusion, headache. Hematologic/Endocrine: Denies: bleeding. Immunologic/Allergic: Denies: splenectomy. Objective Last 24 Hrs of Vital Signs/I&O Vital Signs Date Time Temp Pulse Resp B/P Pulse O2 O2 Flow FiO2 Ox Delivery Rate 01/04 0000 Nasal 2.0L Cannula 01/03 2248 98.0 75 18 150/70 94 Nasal 2.0L Cannula 01/03 2133 98.0 71 22 132/68 01/03 2132 98.0 71 22 132/68 01/03 1600 96 Nasal 2.0L Cannula 01/03 1600 98.0 71 22 132/68 96 Nasal 2.0L Cannula 01/03 0800 97.7 77 18 136/60 92 Nasal 2.0L Cannula 01/03 0800 92 Nasal 2.0L Cannula Intake & Output 01/04 0800 01/04 0000 01/03 1600 Intake Total 80 240 675 Output Total 250 450 700 Balance -170 -210 -25 Intake, IV 80 75 Intake, Oral 240 600 Output, Urine 250 450 700 Physical Exam General Appearance: Alert, Oriented X3, Cooperative, No Acute Distress Skin: No Significant Lesion HEENT: Atraumatic, PERRLA, EOMI, Mucous Membr. moist/pink Neck: Supple, No JVD Lymphatic: Cervical nl Cardiovascular: Regular Rate, Normal S1, Normal S2 Lungs: Normal Air Movement, No wheezing appreciated, occasional rhonchi Abdomen: Normal Bowel Sounds, Soft, No Tenderness Neurological: Normal Speech, Normal Tone Extremities: No Clubbing, No Cyanosis, No Edema Vascular: Pulses Symmetrical Current Medications: Current Medications Sig/Damon Start time Last Medication Dose Route Stop Time Status Admin Acetaminophen 1,000 MG Q6P PRN 12/18 2145 AC 12/18 N/A 1 UNIT IV 2144 Acetaminophen 650 MG Q6P PRN 12/16 0015 AC 01/01 PO 2332 Aspirin 81 MG DAILY 12/16 1000 AC 01/03 PO 1009 Atorvastatin Calcium 40 MG 1700 12/16 1700 AC 01/03 PO 1635 Carvedilol 6.25 MG BID 12/18 2200 AC 01/03 PO 2132 Cefazolin Sodium 2 GM IQ8 12/22 0000 AC 01/04 N/A 1 UNIT IV 0018 Clopidogrel Bisulfate 75 MG DAILY 12/16 1000 AC 01/03 PO 1009 Finasteride 5 MG DAILY 12/29 1104 AC 01/03 PO 1009 Furosemide 40 MG 7:30 AM, & 4:30 PM 01/03 1630 AC 01/03 PO 1635 Furosemide 40 MG BID 12/31 2200 DC 01/03 IV PUSH 1010 Insulin Aspart 0 AT BEDTIME 12/27 2200 AC 01/03 SC 2133 Insulin Aspart 0 TIDAC 12/27 1700 AC 01/03 SC 1158 Isosorbide 30 MG DAILY 12/29 1115 AC 01/03 Mononitrate PO 1009 Magnesium Oxide 400 MG BID 01/02 1000 AC 01/03 PO 2132 Melatonin 5 MG AT BEDTIME 12/27 2200 AC 01/04 PO 0017 Morphine Sulfate 2 MG Q4-6 PRN PRN 12/26 2030 AC IV Omeprazole 20 MG DAILY AC 01/02 0836 AC 01/04 PO 0620 Polyethylene Glycol 17 GM DAILY PRN 12/16 1015 AC PO Potassium Chloride 20 MEQ DAILY 01/02 1000 AC 01/03 PO 1009 Ranolazine 500 MG BID 12/29 1042 AC 01/03 PO 2133 Tamsulosin HCl 0.4 MG DAILY 12/29 1032 AC 01/03 PO 1009 Last 24 Hrs of Lab/Evens Results Last 24 Hrs of Labs/Mics: Laboratory Tests 01/04/17 0620: Sodium Pending, Potassium Pending, Chloride Pending, Carbon Dioxide Pending, Anion Gap Pending, BUN Pending, Creatinine Pending, BUN/Creatinine Ratio Pending , Magnesium Pending, CBC w Diff Pending, WBC Pending, RBC Pending, Hgb Pending, Hct Pending, MCV Pending, MCH Pending, RDW Pending, Plt Count Pending, MPV Pending, PUBS MCHC Pending Orders ECHO Findings: CONCLUSIONS The left ventricle is upper normal size. Left ventricular wall thickness is upper limits of normal. Interventricular septum appears to contract well. The inferior wall is hypokinetic. The basilar posterior wall is akinetic. Overall left ventricular systolic function is moderately decreased. Estimated ejection fraction is 40-45%. "pseudonormal" filling pattern of the left ventricle for age (stage 2 diastolic dysfunction). Mild left atrial dilatation. Mild thickening/calcification of the mitral valve leaflets. Mild mitral annular calcification. Mild mitral regurgitation. Diffuse thickening (sclerosis) of the aortic valve cusps without reduced excursion. No aortic stenosis. Mild aortic regurgitation. Unable to estimate the right ventricular systolic pressure. There is a left pleural effusion. Radiology Findings: 01/03 CXR: IMPRESSION: 1. Suspect interval slight progression in pulmonary edema and small bilateral pleural effusions. 2. No change in bibasilar subsegmental atelectasis. Assessment/Plan Assessment: Mr. Mejia is a 76 y/o M with PMHx of CAD s/p CABG, PVD s/p LLE angioplasty and T2DM who is admitted with ARDS, now resolved, MSSA bacteremia 2/2 possible pneumonia and NSTEMI. #Staph aureus sepsis, resolving: Of unclear etiology but is likely secondary to pneumonia. Remains afebrile and without leukocytosis on day 17 of cefazolin. * ID following. Appreciate their recs. * Continue IV cefazolin for a total of 4 weeks from his negative blood cultures (12/20/16-01/17/17). #NSTEMI in setting of CAD s/p quadruple bypass 1993: Clinically stable. * Cardiology following. Appreciate their recs. * Discontinue prior to admission HCTZ 25 mg PO daily on discharge. * Plavix 75 mg PO Daily, coreg 6.25 mg PO BID, imdur 30 mg PO daily, ranexa 500 mg PO BID. * Continue Lasix 40 mg PO BID. * ASA 81 mg PO daily with lipitor 40 mg PO daily. * OOB as tolerated. #BPH: * Resumed prior to admission tamsulosin 0.4 mg PO daily and finasteride 5 mg PO daily. * Cates catheter removed today and will do voiding trial #Acute respiratory distress * Recovered from ARDS, but had two episodes of pulm edema that were resolved with BiPAP therapy. * No issues over night, he remains on 2 L O2 via NC, will titrate down as tolerated. * Continue Lasix 40 mg twice daily PO, per ICU team's verbal discussion with Dr Jones. #DM * NSS TIDAC/HS * Accuchecks TIDAC/HS * Diabetic diet #Sleep * Not repsonsive to melatonin, try rozerem. #Discharge disposition * Patient to be discharged to [facility] as suggested by PT, continue daily PT for improved gait and mobility. Diet: Consistent carb 3 DVT PPx: HSQ and ALPs CODE: FULL Problem List: 1. BPH (benign prostatic hyperplasia) 2. MSSA (methicillin susceptible Staphylococcus aureus) septicemia 3. MODS (multiple organ dysfunction syndrome) 4. NSTEMI (non-ST elevated myocardial infarction) 5. Sepsis 6. PVD (peripheral vascular disease) with claudication 7. CAD (coronary artery disease) Pain Ratin Pain Location: n/a Pain Goal: Remain pain free Pain Plan: Tylenol for mild pain, IV morphine for severe pain Tomorrow's Labs & Rationales: CBC (sepsis on IV cefazolin), BEP (hyponatremia and electrolytes while aggressively diuresing), mag (hypomagnesemia)
--- NOTE | 2017-01-04 07:40 | Discharge Summary ---
Visit Information Visit Dates Admission Date: 12/15/16 Discharge Date: 01/06/17 Hospital Course Course Attending Physician: MESFIN MARTINES MD Primary Care Physician: SAUL DEE,[facility] Course: This is a 76-year-old man with a history of coronary artery disease, status post CABG over 20 years prior to admission and with a recent cardiac catheterization apparently revealing blockage for which no intervention was planned, bladder cancer, apparently currently undergoing intravesical treatment, with a history of recurrent urinary tract infections, diabetes, peripheral vascular disease, status post apparent balloon angioplasty of the left leg via the right groin at the DC one day prior to admission and discharged home the same day, with no further details available at this time, and with a history of intermittent aspiration, particularly with fluids, admitted on December 15 after he presented to the emergency room with the acute onset of chills and weakness. On admission he was febrile to 101.7. Laboratory data revealed a white blood cell count of 15,000, BUN/creatinine 20 and 0.7, normal liver enzymes, troponin 0.36. Urinalysis 5-10 RBC/15-25 WBCs. Chest x-ray revealed mild left basilar opacification. He was begun on Ceftriaxone and Azithromycin. On December 16 blood cultures 2 were reported positive for gram-positive cocci in clusters and Vancomycin was added. His troponin continued to increase and he reported increasing shortness of breath, with increasing oxygen requirements, and he was transferred into the ICU. He was given Lasix and placed on BiPAP and then ultimately intubated.. He remained febrile up to 104.7 overnight. The patient was treated for the follwoing problems in the hospital: 1. Septic shock secondary to gram-positive cocci bacteremia. 2. Recurrent, acute respiratory distress with CHF exacerbation, stable to discharge 3. Non-ST elevation myocardial infarction-clinically stable at discharge. 4. Multiple organ dysfunction syndrome improved 5. History of peripheral vascular disease with recent intervention as mentioned above 6. Ischemic cardiomyopathy-most recent ejection fraction 40-45% Hospital course The patient was initially admitted to telemetry floor and then was transferred the next day due to hypertensive and respiratory distress. She was monitored in the ICU for 2 weeks. The patient required BiPAP and then ultimately got intubated and required mechanical ventilation. Her acute respiratory distress was secondary to CHF and she was given IV Lasix. Regarding the patient's gram-positive bacteremia, the patient ultimately grew staph aureus which was sensitive to most of the antibiotics. The patient also underwent the source for the gram-positive bacteremia and hence ended up getting a transesophageal echocardiogram which was negative for any infective endocarditis. The patient's source of bacteremia was supposedly pneumonia and given the fact that the patient blood cultures remained positive for greater than 72 hours the patient would be treated for long-term IV antibiotics for a total of 4 weeks the patient is being discharged on IV cefazolin 2 g IV every 8 which she should continue to December. Regarding the patient's CHF, the patient was started on IV Lasix and then was transitioned to by mouth Lasix. The patient is being discharged on 40 mg by mouth furosemide twice a day. We stopped the patient's hydrochlorothiazide on discharge The patient also had elevation in troponins with a peak of 40. This was later labeled as non-ST elevation [place] and the patient was anticoagulated with IV heparin initially The patient is being discharged on dual antiplatelet therapy with aspirin and Plavix The patient would need a follow-up with his staffing recruiter in 1 week of discharge Allergies: Coded Allergies: Penicillins (HIVES 12/15/16) Significant Procedures: EXAM TYPE: CARD - ECHOCARDIOGRAM CAITY BELL Age: 76 : 1940 Gender: M Exam Date: 12/27/2016 16:34 Exam Location: [facility] Ht (in): 72 Wt (lb): 152 BSA: 1.86 BP: 148 / 66 Ordering Physician: LENARD PELAEZ MD Referring Physician: Yayo Jimenez MD Chief, SoC Technologist: Rosita Pryor [facility] Room Number: 108 Indications: SHORTNESS OF BREATH Rhythm: Technical Quality: Good FINDINGS Left Ventricle The left ventricle is upper normal size. Left ventricular wall thickness is upper limits of normal. Interventricular septum appears to contract well. The inferior wall is hypokinetic. The basilar posterior wall is akinetic. Overall left ventricular systolic function is moderately decreased. Estimated ejection fraction is 40-45%."pseudonormal" filling pattern of the left ventricle for age (stage 2 diastolic dysfunction). Right Ventricle The right ventricle is normal in size and function. Right Atrium The right atrium is normal in size. Left Atrium Mild left atrial dilatation. Mitral Valve Mild thickening/calcification of the mitral valve leaflets. Mild mitral annular calcification. Mild mitral regurgitation. Aortic Valve Diffuse thickening (sclerosis) of the aortic valve cusps without reduced excursion. No aortic stenosis. Mild aortic regurgitation. Tricuspid Valve Tricuspid valve is normal in structure and function. Trace tricuspid regurgitation. Unable to estimate the right ventricular systolic pressure. Pulmonic Valve Pulmonic valve not well visualized, grossly normal. Trace pulmonic regurgitation. Pericardium There is no pericardial effusion. There is a left pleural effusion. Great Vessels Normal aortic root dimension. The aortic arch and great vessels are well seen and are normal. CONCLUSIONS The left ventricle is upper normal size. Left ventricular wall thickness is upper limits of normal. Interventricular septum appears to contract well. The inferior wall is hypokinetic. The basilar posterior wall is akinetic. Overall left ventricular systolic function is moderately decreased. Estimated ejection fraction is 40-45%. "pseudonormal" filling pattern of the left ventricle for age (stage 2 diastolic dysfunction). Mild left atrial dilatation. Mild thickening/calcification of the mitral valve leaflets. Mild mitral annular calcification. Mild mitral regurgitation. Diffuse thickening (sclerosis) of the aortic valve cusps without reduced excursion. No aortic stenosis. Mild aortic regurgitation. Unable to estimate the right ventricular systolic pressure. There is a left pleural effusion. Yayo Jimenez M.D. (Electronically Signed) Final Date: 27 December 2016 18:38 MEASUREMENTS (Male / Female) Normal Values 2D ECHO LV Diastolic Diameter PLAX 5.4 cm 4.2 - 5.9 / 3.9 - 5.3 cm LV Systolic Diameter PLAX 4.5 cm 2.1 - 4.0 cm LV Fractional Shortening PLAX 16.7 % 25 - 46 % LV Ejection Fraction 2D Teich 34.6 % IVS Diastolic Thickness 0.9 cm LVPW Diastolic Thickness 1.1 cm LV Relative Wall Thickness 0.4 RV Internal Dim ED PLAX 2.8 cm 1.9 - 3.8 cm LVOT Diameter 1.8 cm Aortic Root Diameter 3.0 cm LA Systolic Diameter LX 4.5 cm 3.0 - 4.0 / 2.7 - 3.8 cm LV Ejection Fraction MOD BP 43.5 % >= 55 % LV Diastolic Length 4C 9.5 cm 6.9 - 10.3 cm LV Diastolic Area 4C 37.4 cm LV Diastolic Volume MOD 4C 119.0 cm LV Ejection Fraction MOD 4C 41.2 % LV Stroke Volume MOD 4C 49.0 cm LV Systolic Length 4C 8.6 cm LV Systolic Area 4C 26.5 cm LV Systolic Volume MOD 4C 70.0 cm LV Ejection Fraction MOD 2C 51.8 % LV Diastolic Volume 4C AL 125.3 cm 85 - 139 / 69 - 109 cm LV Systolic Volume 4C AL 69.8 cm LV Ejection Fraction 4C AL 44.3 % LV Stroke Volume 4C AL 55.5 cm LV Ejection Fraction 2C AL 53.3 % LA Volume 49.0 cm 18 - 58 / 22 - 52 cm Ascending Aorta Diameter 2.7 cm DOPPLER AV Peak Velocity 149.0 cm/s AV Peak Gradient 8.9 mmHg AV Mean Velocity 91.9 cm/s AV Mean Gradient 4.0 mmHg AV Velocity Time Integral 31.6 cm LVOT Peak Velocity 107.0 cm/s LVOT Peak Gradient 4.6 mmHg LVOT Mean Velocity 64.3 cm/s LVOT Mean Gradient 2.0 mmHg LVOT Velocity Time Integral 21.9 cm LVOT Stroke Volume 55.7 cm AV Area Cont Eq vti 1.8 cm AV Area Cont Eq pk 1.8 cm MV Peak Velocity 138.0 cm/s MV Peak Gradient 7.6 mmHg MV Mean Velocity 69.1 cm/s MV Mean Gradient 3.0 mmHg Mitral E Point Velocity 127.0 cm/s Mitral A Point Velocity 81.2 cm/s Mitral E to A Ratio 1.6 MV PHT Velocity 141.0 cm/s MV Deceleration Tyler 346.0 cm/s MV Pressure Half Time 122.3 ms MV Area PHT 1.8 cm MV Deceleration Time 164.0 ms PV Peak Velocity 149.0 cm/s PV Peak Gradient 8.9 mmHg PV Mean Velocity 104.0 cm/s PV Mean Gradient 5.0 mmHg PV Velocity Time Integral 34.7 cm LV E' Lateral Velocity 8.0 cm/s Mitral E to LV E' Lateral Ratio 15.9 LV E' Septal Velocity 5.9 cm/s Mitral E to LV E' Septal Ratio 21.3 EXAM TYPE: CARD - TRANSESOPHAGEAL ECHO CAITY BELL Age: 76 : Gender: M Exam Date: 12/25/2016 11:15 Exam Location: [facility] Ht (in): 72 Wt (lb): 152 BSA: 1.86 BP: 150 / 62 Ordering Physician: YAYO JIMENEZ MD Referring Physician: YAYO JIMENEZ MD Technologist: Todd Antony [facility] Room Number: 108 Indications: INFECTIVE ENDOCARDITIS Rhythm: Sinus Technical Quality: Good Medications Propofol administered by Anesthesiology. Ease of Transducer Insertion No Difficulty Complications None. Technical Difficulty none FINDINGS Left Ventricle Left ventricular systolic function is mild to moderately reduced. Right Ventricle Normal right ventricular size and function. Right Atrium Normal right atrial size. Left Atrium Mild left atrial dilatation. LA Appendage Normal left atrial appendage. Normal pulmonic vein. IA Septum Normal interatrial septum. No evidence of shunting across the interatrial septum by color flow. Mitral Valve The mitral valve is thickened with normal motion and no evidence of vegetations. There is mild mitral regurgitation. Aortic Valve The aortic valve shows mild thickening of the leaflets with adequate excursion. There is no evidence of valvular vegetations on the aortic valve. There is trace aortic regurgitation. Tricuspid Valve The tricuspid valve is normal. There is trace tricuspid regurgitation. There is no evidence of vegetations on the tricuspid valve. Pulmonic Valve The pulmonic valve is fairly well seen. There is no evidence of vegetations on the pulmonic valve. Pericardium No pericardial or pleural effusion. Great Vessels There is grade 1-2 plaquing of the descending aorta and aortic arch. CONCLUSIONS Left ventricular systolic function is mild to moderately reduced. Mild left atrial dilatation. Normal left atrial appendage. Normal pulmonic vein. No evidence of shunting across the interatrial septum by color flow. The mitral valve is thickened with normal motion and no evidence of vegetations. The aortic valve shows mild thickening of the leaflets with adequate excursion. There is no evidence of valvular vegetations on the aortic valve. There is no evidence of vegetations on the tricuspid valve. There is no evidence of vegetations on the pulmonic valve. There is grade 1-2 plaquing of the descending aorta and aortic arch. Pertinent Lab Results: Laboratory Tests 01/04/17 0620: Anion Gap 7, Estimated GFR > 60, BUN/Creatinine Ratio 20.0, Magnesium 1.6, CBC w Diff NO MAN DIFF REQ, RBC 3.57 L, MCV 89.9, MCH 30.1, RDW 15.6 H, MPV 9.3, Gran % 67.6, Lymphocytes % 18.0 L, Monocytes % 11.0 H, Eosinophils % 2.8, Basophils % 0.6, Absolute Granulocytes 3.3, Absolute Lymphocytes 0.9 L, Absolute Monocytes 0.5, Absolute Eosinophils 0.1, Absolute Basophils 0, PUBS MCHC 33.4 Laboratory Tests 01/04 0620 Chemistry Sodium (137 - 145 mmol/L) 135 L Potassium (3.5 - 5.1 mmol/L) 3.9 Chloride (98 - 107 mmol/L) 98 Carbon Dioxide (22 - 30 mmol/L) 31 H Anion Gap (5 - 16) 7 BUN (9 - 20 mg/dL) 10 Creatinine (0.7 - 1.2 mg/dL) 0.5 L Estimated GFR (>60 ml/min) > 60 BUN/Creatinine Ratio (7 - 25 %) 20.0 Magnesium (1.6 - 2.3 mg/dL) 1.6 Hematology CBC w Diff NO MAN DIFF REQ WBC (4.8 - 10.8 /CUMM) 4.9 RBC (4.70 - 6.10 /CUMM) 3.57 L Hgb (14.0 - 18.0 G/DL) 10.7 L Hct (42 - 52 %) 32.1 L MCV (80.0 - 94.0 FL) 89.9 MCH (27.0 - 31.0 PG) 30.1 RDW (11.5 - 14.5 %) 15.6 H Plt Count (130 - 400 /CUMM) 205 MPV (7.4 - 10.4 FL) 9.3 Gran % (42.2 - 75.2 %) 67.6 Lymphocytes % (20.5 - 51.1 %) 18.0 L Monocytes % (1.7 - 9.3 %) 11.0 H Eosinophils % (0 - 5 %) 2.8 Basophils % (0.0 - 2.0 %) 0.6 Absolute Granulocytes (1.4 - 6.5 /CUMM) 3.3 Absolute Lymphocytes (1.2 - 3.4 /CUMM) 0.9 L Absolute Monocytes (0.10 - 0.60 /CUMM) 0.5 Absolute Eosinophils (0.0 - 0.7 /CUMM) 0.1 Absolute Basophils (0.0 - 0.2 /CUMM) 0 PUBS MCHC (33.0 - 37.0 G/DL) 33.4 Disposition Summary Disposition Principal Diagnosis: Gram positive bactermeia with Staph aureus Additional Diagnosis: 2. Recurrent, acute respiratory distress with CHF exacerbation, stable to discharge 3. Non-ST elevation myocardial infarction-clinically stable at discharge. 4. Multiple organ dysfunction syndrome improved 5. History of peripheral vascular disease with recent intervention as mentioned above 6. Ischemic cardiomyopathy-most recent ejection fraction 40-45% Discharge Disposition: SNF Discharge Instructions General Discharge Information Code Status: Full Code Patient's Diet: As tolerated Patient's Activity: As tolerated Follow-Up Instructions/Appts: f/u with PCP in 1 week of discharge F/u with staffing recruiter in1 week of discharge Medications at Discharge Discharge Medications: Stop taking the following medications: Hydrochlorothiazide (Hydrochlorothiazide) 25 MG TABLET ORAL DAILY Nifedipine (Procardia XL) 60 MG TAB.ER.24 ORAL DAILY Nitroglycerin (Minitran) 0.4 MG/HOUR PATCH.TD24 On the skin DAILY Continue taking these medications: Atorvastatin Calcium (Lipitor) 80 MG TABLET 0.5 Tablet ORAL DAILY Comments: PER PT MED LIST Last Taken: 01/05/17 Time: 1630 PM Carvedilol (Carvedilol) 12.5 MG TABLET 0.5 Tablet ORAL TWICE DAILY Comments: PER PT MED LIST Last Taken: 01/06/17 Time: 9:30 AM Clopidogrel Bisulfate (Plavix) 75 MG TABLET 1 Tablet ORAL DAILY Comments: PER PT MED LIST Last Taken: 01/06/17 Time: 9:30 AM Finasteride (Finasteride) 5 MG TABLET 1 Tablet ORAL DAILY Comments: PER PT MED LIST Last Taken: 01/06/17 Time: 9:30 AM Isosorbide Mononitrate (Isosorbide Mononitrate ER) 60 MG TAB.ER.24H 0.5 Tablet ORAL Every Morning Comments: PER PT MED LIST Last Taken: 01/06/17 Time: 9:30 AM Metformin HCl (Metformin HCl) 500 MG TABLET 1 Tablet ORAL TWICE DAILY Comments: WITH MEALS PER PT MED LIST NOT GIVEN IN HOSPITAL INSULIN GIVEN Nitroglycerin (Nitroglycerin) 400 MCG/SPRAY SPRAY 1 [place] SUBLINGUAL 4XDAILY as needed for CHEST/JAW DISCOMFORT Comments: PER PT MED LIST NOT GIVEN IN HOSPITAL Omeprazole (Omeprazole) 20 MG TABLET.DR 1 Tablet ORAL DAILY BEFORE BREAKFAST Comments: PER PT MED LIST Last Taken: 01/06/17 Time: 6:30 AM Ranolazine (Ranexa) 500 MG TAB.ER.12H 1 Tablet ORAL TWICE DAILY Comments: PER PT MED LIST Last Taken: 01/06/17 Time: 9:30 AM Tamsulosin HCl (Flomax) 0.4 MG CAP.ER.24H 1 Capsule ORAL DAILY Comments: PER PT MED LIST Last Taken: 01/06/17 Time: 9:30 AM Aspirin (Aspirin*) 81 MG TAB.CHEW 1 Tablet ORAL DAILY Comments: Last Taken: 01/05/17 Time: 9 PM Start taking the following new medications: Ramelteon (Rozerem) 8 MG TABLET 8 Milligram ORAL Every night as needed for SLEEP Qty = 1 No Refills Potassium Chloride (Klor-Con M20) 20 MEQ TAB.ER.PRT 20 Millequivalent ORAL DAILY Qty = 1 No Refills Furosemide (Lasix) 40 MG TABLET 40 Milligram ORAL 7:30AM & 4:30PM Qty = 1 No Refills Magnesium Oxide (Magnesium Oxide) 400 MG TABLET 400 Milligram ORAL TWICE DAILY Qty = 1 No Refills Polyethylene Glycol 3350 (Miralax) 17 GRAM/DOSE POWDER 17 Gram ORAL DAILY as needed for CONSTIPATION Qty = 1 No Refills Cefazolin Sodium in 0.9 % NaCl (Cefazolin-0.9% NaCl 2 G/100 Ml) 2 GRAM/100 ML PLAST..BAG 2 Gram INTRAVEN EVERY 8 HOURS Qty = 1 No Refills Instructions: STOP DATE IS 01/17/17. Copies To: AYDE HUGHES MD
[2017-01-04 08:12] LABS: ABSOLUTE BASOPHIL COUNT 0 /CUMM (0.0-0.2); ABSOLUTE EOSINOPHIL COUNT 0.1 /CUMM (0.0-0.7); ABSOLUTE GRANULOCYTE CT 3.3 /CUMM (1.4-6.5); ABSOLUTE LYMPH COUNT 0.9 /CUMM (1.2-3.4); ABSOLUTE MONOCYTE COUNT 0.5 /CUMM (0.10-0.60); BASOPHIL % 0.6 % (0.0-2.0); EOSINOPHIL % 2.8 % (0-5); GRANULOCYTE % 67.6 % (42.2-75.2); HEMATOCRIT 32.1 % (42-52); MEAN CORPUSCULAR HGB 30.1 PG (27.0-31.0); MEAN CORPUSCULAR HGB CONC 33.4 G/DL (33.0-37.0); MEAN CORPUSCULAR VOLUME 89.9 FL (80.0-94.0); MEAN PLATELET VOLUME 9.3 FL (7.4-10.4); PLATELET COUNT 205 /CUMM (130-400); RBC DISTRIBUTION WIDTH 15.6 % (11.5-14.5); RED BLOOD CELL CT 3.57 /CUMM (4.70-6.10); WHITE BLOOD CELL COUNT 4.9 /CUMM (4.8-10.8)
[2017-01-04 08:27] VITALS: BP 150/64
[2017-01-04] MEDS ORDERED: CEFAZOLIN-2 GM/100 M IV (08:31)
[2017-01-04] MEDS ORDERED: ROZEREM8 M1 PO (08:33)
[2017-01-04] MEDS ORDERED: KLOR-CON M2020 ME1 PO (08:34)
[2017-01-04] MEDS ORDERED: LASIX40 M1 PO (08:34)
[2017-01-04] MEDS ORDERED: MAGNESIUM OXID400 M1 PO (08:35)
[2017-01-04] MEDS ORDERED: MIRALAX119 GM PO (08:35)
--- NOTE | 2017-01-04 08:47 | Patient Discharge Instructions ---
Discharge Instructions General Discharge Information You were seen/treated for: Non-ST Elevation [place] Ischemic cardiomyopathy Acute respiratory distress syndrome Multi organ dysfunction syndrome MSSA Sepsis Special Instructions: Continue IV antibiotics until 01/17/17. Follow up with your oil extractor within 7 days of discharge for continued care. Follow up with your PCP within 7 days of discharge for continued care. Please take all medications as directed. Diet Recommended Diet: Diabetic Activity Activity Self Limited: Yes Acute Coronary Syndrome Inclusion Criteria At DC or during hospital stay patient has or had the following: ACS DIAGNOSIS Yes Discharge Core Measures Meds if any: Prescribed or Continued at Discharge ORALIA/ARB if EF <40% No Aspirin Yes Beta-Lizzie Yes Statin Yes Meds if any: NOT Prescribed or Continued at Discharge No ORALIA/ARB d/t Renal Failure/Azotemia Congestive Heart Failure Inclusion Criteria At DC or during hospital stay patient has or had the following: CHF DIAGNOSIS Yes Discharge Core Measures Meds if any: Prescribed or Continued at Discharge ORALIA/ARB for EF <40% No Meds if any: NOT Prescribed or Continued at Discharge No ORALIA/ARB d/t Renal Failure/Azotemia Cerebrovascular accident Inclusion Criteria At DC or during hospital stay patient has or had the following: CVA/TIA Diagnosis No Discharge Core Measures Meds if any: Prescribed or Continued at Discharge Meds if any: NOT Prescribed or Continued at Discharge Venous thromboembolism Inclusion Criteria VTE Diagnosis No VTE Type NONE VTE Confirmed by (Test) NONE Discharge Core Measures - Per Current guidelines, there needs to be overlap - treatment for the first 5 days of Warfarin therapy. - If discharged on Warfarin prior to 5 days of - overlap therapy, the patient will need to be - assessed for post discharge needs including - *Post discharge parental anticoagulation - *Warfarin and/or parental anticoagulation education - *Follow up date to check INR post discharge At least 5 days overlap therapy as Inpatient No Meds if any: Prescribed or Continued at Discharge Note: Overlap Therapy is Warfarin and Anticoagulant Meds if any: NOT Prescribed or Continued at Discharge
--- NOTE | 2017-01-04 09:11 | PN- Pulmonary ---
Subjective HPI/Critical Care Issues: pt seen and examined transferred out of icu comfortable no new events Objective Current Medications: Current Medications Sig/Damon Start time Last Medication Dose Route Stop Time Status Admin Acetaminophen 1,000 MG Q6P PRN 12/18 2145 AC 12/18 N/A 1 UNIT IV 2144 Acetaminophen 650 MG Q6P PRN 12/16 0015 AC 01/01 PO 2332 Aspirin 81 MG DAILY 12/16 1000 AC 01/04 PO 0832 Atorvastatin Calcium 40 MG 1700 12/16 1700 AC 01/03 PO 1635 Carvedilol 6.25 MG BID 12/18 2200 AC 01/04 PO 0833 Cefazolin Sodium 2 GM IQ8 12/22 0000 AC 01/04 N/A 1 UNIT IV 0832 Clopidogrel Bisulfate 75 MG DAILY 12/16 1000 AC 01/04 PO 0833 Finasteride 5 MG DAILY 12/29 1104 AC 01/04 PO 0834 Furosemide 40 MG 7:30 AM, & 4:30 PM 01/03 1630 AC 01/04 PO 0822 Furosemide 40 MG BID 12/31 2200 DC 01/03 IV PUSH 1010 Insulin Aspart 0 AT BEDTIME 12/27 2200 AC 01/03 SC 2133 Insulin Aspart 0 TIDAC 12/27 1700 AC 01/03 SC 1158 Isosorbide 30 MG DAILY 12/29 1115 AC 01/04 Mononitrate PO 0833 Magnesium Oxide 400 MG BID 01/02 1000 AC 01/04 PO 0833 Melatonin 5 MG AT BEDTIME 12/27 2200 DC 01/04 PO 0017 Morphine Sulfate 2 MG Q4-6 PRN PRN 12/26 2030 AC IV Omeprazole 20 MG DAILY AC 01/02 0836 AC 01/04 PO 0620 Polyethylene Glycol 17 GM DAILY PRN 12/16 1015 AC PO Potassium Chloride 20 MEQ DAILY 01/02 1000 AC 01/04 PO 0833 Ramelteon 8 MG QPM 01/04 2200 AC PO Ranolazine 500 MG BID 12/29 1042 AC 01/04 PO 0834 Tamsulosin HCl 0.4 MG DAILY 12/29 1032 AC 01/04 PO 0833 Vital Signs & I&O Last 24 Hrs of Vitals and I&O: Vital Signs Date Time Temp Pulse Resp B/P Pulse O2 O2 Flow FiO2 Ox Delivery Rate 01/04 0834 76 150/64 03/10 0833 76 150/64 01/04 0833 76 150/64 01/04 0833 76 150/64 01/04 08 98.3 76 18 150/64 92 Nasal 2.0L Cannula 01/04 0000 Nasal 2.0L Cannula 01/03 2248 98.0 75 18 150/70 94 Nasal 2.0L Cannula 01/03 2133 98.0 71 22 132/68 01/03 2132 98.0 71 22 132/68 01/03 1600 96 Nasal 2.0L Cannula 01/03 1600 98.0 71 22 132/68 96 Nasal 2.0L Cannula Intake & Output 01/04 1600 01/04 0800 01/04 0000 Intake Total 80 240 Output Total 250 450 Balance -170 -210 Intake, IV 80 Intake, Oral 240 Output, Urine 250 450 Exam Other Physical Findings: gen awake heent ncat cvs s1, s2 lungs rhonchi, diminished bs at bases abd soft, bs+ ext no edema Results Last 24 Hrs of Lab Results: Laboratory Tests 01/04/17 0620: Anion Gap 7, Estimated GFR > 60, BUN/Creatinine Ratio 20.0, Magnesium 1.6, CBC w Diff NO MAN DIFF REQ, RBC 3.57 L, MCV 89.9, MCH 30.1, RDW 15.6 H, MPV 9.3, Gran % 67.6, Lymphocytes % 18.0 L, Monocytes % 11.0 H, Eosinophils % 2.8, Basophils % 0.6, Absolute Granulocytes 3.3, Absolute Lymphocytes 0.9 L, Absolute Monocytes 0.5, Absolute Eosinophils 0.1, Absolute Basophils 0, PUBS MCHC 33.4 Impression/Plan Impression/Plan Impression/Plan: Impression 76 year old man -nstemi, systolic heart failure -staph aureus bacteremia -pulmonary edema now improved with diureiss and bipap Plan - keep spo2 >92% - ID appreciated, PICC line, 4 weeks of abx - Cefazolin - net negative fluid balance - monitor ins/outs - dc planning - pt evaluation DVT prophylaxis at all times
--- NOTE | 2017-01-04 12:55 | PN- Infect Dx ---
Subjective Subjective: Afebrile without complaints Objective Last 24 Hrs of Vital Signs/I&O Vital Signs Date Time Temp Pulse Resp B/P Pulse O2 O2 Flow FiO2 Ox Delivery Rate 01/05 0834 76 150/64 01/04 833 76 150/64 01/05 0833 76 150/64 01/04 08 76 150/64 01/04 08 98.3 76 18 150/64 92 Nasal 2.0L Cannula 01/04 0000 Nasal 2.0L Cannula 01/03 2248 98.0 75 18 150/70 94 Nasal 2.0L Cannula 01/03 2133 98.0 71 22 132/68 01/03 2132 98.0 71 22 132/68 01/03 1600 96 Nasal 2.0L Cannula 01/03 1600 98.0 71 22 132 96 Nasal 2.0L Cannula Intake & Output 01/04 1600 01/04 0800 01/04 0000 Intake Total 80 240 Output Total 250 450 Balance -170 -210 Intake, IV 80 Intake, Oral 240 Output, Urine 250 450 Physical Exam Other Physical Findings: He appears comfortable in no acute distress Lungs minimal basilar crackles Heart regular rhythm with no murmur Extremities no cyanosis, clubbing or edema; PICC in the left upper extremity with no inflammation at the site Results Last 24 Hours of Lab Results: Laboratory Tests 01/04 0620 Chemistry Sodium (137 - 145 mmol/L) 135 L Potassium (3.5 - 5.1 mmol/L) 3.9 Chloride (98 - 107 mmol/L) 98 Carbon Dioxide (22 - 30 mmol/L) 31 H Anion Gap (5 - 16) 7 BUN (9 - 20 mg/dL) 10 Creatinine (0.7 - 1.2 mg/dL) 0.5 L Estimated GFR (>60 ml/min) > 60 BUN/Creatinine Ratio (7 - 25 %) 20.0 Magnesium (1.6 - 2.3 mg/dL) 1.6 Hematology CBC w Diff NO MAN DIFF REQ WBC (4.8 - 10.8 /CUMM) 4.9 RBC (4.70 - 6.10 /CUMM) 3.57 L Hgb (14.0 - 18.0 G/DL) 10.7 L Hct (42 - 52 %) 32.1 L MCV (80.0 - 94.0 FL) 89.9 MCH (27.0 - 31.0 PG) 30.1 RDW (11.5 - 14.5 %) 15.6 H Plt Count (130 - 400 /CUMM) 205 MPV (7.4 - 10.4 FL) 9.3 Gran % (42.2 - 75.2 %) 67.6 Lymphocytes % (20.5 - 51.1 %) 18.0 L Monocytes % (1.7 - 9.3 %) 11.0 H Eosinophils % (0 - 5 %) 2.8 Basophils % (0.0 - 2.0 %) 0.6 Absolute Granulocytes (1.4 - 6.5 /CUMM) 3.3 Absolute Lymphocytes (1.2 - 3.4 /CUMM) 0.9 L Absolute Monocytes (0.10 - 0.60 /CUMM) 0.5 Absolute Eosinophils (0.0 - 0.7 /CUMM) 0.1 Absolute Basophils (0.0 - 0.2 /CUMM) 0 PUBS MCHC (33.0 - 37.0 G/DL) 33.4 Last 24 Hours of Evens Results: No recent cultures Assessment/Plan Impression: Doing well with temperatures and white blood cell count remaining normal on Cefazolin now Day 20 of treatment for Staph aureus sepsis, possibly secondary to pneumonia, though source has not been clearly identified. Suggestion: 1. Continue Cefazolin to plan on a four-week course of treatment from his negative blood cultures (until January 17)
[2017-01-04 15:49] VITALS: BP 120/60
--- NOTE | 2017-01-04 19:18 | PN- Cardiology ---
Subjective Subjective: Clinically doing quite well today. Ambulated without symptoms. Objective Vital Signs and I&Os Vital Signs Date Time Temp Pulse Resp B/P Pulse O2 O2 Flow FiO2 Ox Delivery Rate 01/04 1600 Nasal 2.0L Cannula 01/04 1549 98.8 68 18 120/60 95 Nasal 2.0L Cannula 01/04 0834 76 150/64 01/04 0833 76 150/64 01/04 0833 76 150/64 01/04 0833 76 150/64 01/04 0827 98.3 76 18 150/64 92 Nasal 2.0L Cannula 01/04 0800 92 Nasal 2.0L Cannula 01/04 0000 Nasal 2.0L Cannula 01/03 2248 98.0 75 18 150/70 94 Nasal 2.0L Cannula 01/03 2133 98.0 71 22 132/68 01/03 2132 98.0 71 22 132/68 Intake & Output 01/04 1600 01/04 0800 01/04 0000 01/03 1600 01/03 0800 01/03 0000 Intake Total 720 80 240 675 50 370 Output Total 250 250 560 367 7570 250 Balance 470 -170 -210 -25 -950 120 Intake, IV 120 80 75 0 50 Intake, Oral 600 240 600 50 320 Number 0 0 Bowel Movements Output, Urine 250 250 904 889 5527 250 Physical Exam: General Appearance: well developed/nourished, no apparent distress Ears, Nose, Throat: normal pharynx, normal ENT inspection Respiratory: normal breath sounds, chest non-tender Cardiovascular: regular rate/rhythm, systolic murmur Abdomen: normal bowel sounds, soft, non-tender Extremities: normal inspection, normal capillary refill, left upper arm PICC line w/o inflammation Current Medications: Current Medications Sig/Damon Start time Last Medication Dose Route Stop Time Status Admin Acetaminophen 1,000 MG Q6P PRN 12/18 2144 AC 12/18 N/A 1 UNIT IV 2144 Acetaminophen 650 MG Q6P PRN 12/16 0015 AC 01/01 PO 2332 Aspirin 81 MG DAILY 12/16 1000 AC 01/04 PO 0832 Atorvastatin Calcium 40 MG 1700 12/16 1700 AC 01/04 PO 1731 Carvedilol 6.25 MG BID 12/18 2200 AC 01/04 PO 0833 Cefazolin Sodium 2 GM IQ8 12/22 0000 AC 01/04 N/A 1 UNIT IV 1731 Clopidogrel Bisulfate 75 MG DAILY 12/16 1000 AC 01/04 PO 0833 Finasteride 5 MG DAILY 12/29 1104 AC 01/04 PO 0834 Furosemide 40 MG 7:30 AM, & 4:30 PM 01/03 1630 AC 01/04 PO 1731 Insulin Aspart 0 AT BEDTIME 12/27 2200 AC 01/03 SC 2133 Insulin Aspart 0 TIDAC 12/27 1700 AC 01/03 SC 1158 Isosorbide 30 MG DAILY 12/29 1115 AC 01/04 Mononitrate PO 0833 Magnesium Oxide 400 MG BID 01/02 1000 AC 01/04 PO 0833 Melatonin 5 MG AT BEDTIME 12/27 2200 DC 01/04 PO 0017 Morphine Sulfate 2 MG Q4-6 PRN PRN 12/26 2030 AC IV Omeprazole 20 MG DAILY AC 01/02 0836 AC 01/04 PO 0620 Polyethylene Glycol 17 GM DAILY PRN 12/16 1015 AC PO Potassium Chloride 20 MEQ DAILY 01/02 1000 AC 01/04 PO 0833 Ramelteon 8 MG QPM 01/04 2200 AC PO Ranolazine 500 MG BID 12/29 1042 AC 01/04 PO 0834 Sodium Chloride 2 SPRAY Q4P PRN 01/04 1615 AC BELTRAN Tamsulosin HCl 0.4 MG DAILY 12/29 1032 AC 01/04 PO 0833 Results Last 48 Hrs of Labs/Mics: Laboratory Tests 01/04/17 0620: Anion Gap 7, Estimated GFR > 60, BUN/Creatinine Ratio 20.0, Magnesium 1.6, CBC w Diff NO MAN DIFF REQ, RBC 3.57 L, MCV 89.9, MCH 30.1, RDW 15.6 H, MPV 9.3, Gran % 67.6, Lymphocytes % 18.0 L, Monocytes % 11.0 H, Eosinophils % 2.8, Basophils % 0.6, Absolute Granulocytes 3.3, Absolute Lymphocytes 0.9 L, Absolute Monocytes 0.5, Absolute Eosinophils 0.1, Absolute Basophils 0, PUBS MCHC 33.4 01/03/17 0610: Anion Gap 6, Estimated GFR > 60, Glucose 116 H, Calcium 8.1 L, Phosphorus 4.0, Magnesium 1.6, Total Bilirubin 0.7, AST 20, ALT 38, Albumin 2.3 L, CBC w Diff NO MAN DIFF REQ, RBC 3.53 L, MCV 90.6, MCH 29.8, RDW 15.4 H, MPV 9.2, Gran % 67.4, Lymphocytes % 18.2 L, Monocytes % 11.8 H, Eosinophils % 2.1, Basophils % 0.5, Absolute Granulocytes 3.6, Absolute Lymphocytes 1.0 L, Absolute Monocytes 0.6, Absolute Eosinophils 0.1, Absolute Basophils 0, PUBS MCHC 32.9 L Assessment/Plan Assessment/Plan Assessment: 1. Recurrent, acute respiratory distress with CHF exacerbation 2. Sepsis with persistent positive blood cultures 3. Non-ST elevation myocardial infarction-clinically stable at the moment. 4. Multiple organ dysfunction syndrome improved 5. History of peripheral vascular disease 6. Ischemic cardiomyopathy-most recent ejection fraction 40-45% Recommendations: - COntinue current medical regimen - Maintain telemetry for now - OOB and ambulate with PT evaluation. - If the patient continues to do well over the next 24 hours, consider discharge to [facility] on Saturday or Saturday. -Consideration for repeat cardiac catheterization as outpatient Continue telemetry? Yes
--- NOTE | 2017-01-05 07:25 | PN- Housestaff ---
See Addendum Subjective Follow-up For: NSTEMI Systolic heart failure ARDS with acute respiratory distress Pulmonary edema Multiorgan failure Staph Aureus MSSA Sepsis Complaints: no complaints Tele-Events Since Last Visit: Sinus meena-Sinus rhythm, HR 58-66, no overnight events. Subjective: Patient seen and examined at bedside this AM. He is resting comfortably in bed in no acute distress and offers no complaints. He denies dyspnea, orthopnea, chest pain or palpitations. Review of Systems Constitutional: Denies: chills, fever. EENTM: Denies: visual changes. Cardiovascular: Denies: chest pain, orthopena, palpitations. Respiratory: Denies: cough, short of breath. Gastrointestinal: Denies: abdominal pain. Genitourinary: Denies: dysuria. Musculoskeletal: Denies: back pain. Objective Last 24 Hrs of Vital Signs/I&O Vital Signs Date Time Temp Pulse Resp B/P Pulse O2 O2 Flow FiO2 Ox Delivery Rate 01/05 0753 97.8 67 18 134/62 91 01/04 2100 74 140/60 01/04 2058 74 140/60 01/04 1600 Nasal 2.0L Cannula 01/04 1549 98.8 68 18 120/60 95 Nasal 2.0L Cannula 01/04 0834 76 150/64 01/04 0833 76 150/64 01/04 0833 76 150/64 01/04 0833 76 150/64 Intake & Output 01/05 1600 01/05 0800 01/05 0000 Intake Total 100 100 Output Total 250 1000 Balance -150 -900 Intake, Oral 100 100 Output, Urine 250 1000 Patient 145 lb Weight Physical Exam General Appearance: Alert, Oriented X3, Cooperative, No Acute Distress Other Physical Findings: Skin: No Significant Lesion HEENT: Atraumatic, PERRLA, EOMI, Mucous Membr. moist/pink Neck: Supple, No JVD Lymphatic: Cervical nl Cardiovascular: Regular Rate, Normal S1, Normal S2 Lungs: Normal Air Movement, No wheezing appreciated, occasional rhonchi Abdomen: Normal Bowel Sounds, Soft, No Tenderness Neurological: Normal Speech, Normal Tone Extremities: No Clubbing, No Cyanosis, No Edema Vascular: Pulses Symmetrical Current Medications: Current Medications Sig/Damon Start time Last Medication Dose Route Stop Time Status Admin Acetaminophen 1,000 MG Q6P PRN 12/18 2144 AC 12/18 N/A 1 UNIT IV 2144 Acetaminophen 650 MG Q6P PRN 12/16 0015 AC 01/01 PO 2332 Aspirin 81 MG DAILY 12/16 1000 AC 01/04 PO 0832 Atorvastatin Calcium 40 MG 1700 12/16 1700 AC 01/04 PO 1731 Carvedilol 6.25 MG BID 12/18 2200 AC 01/04 PO 2100 Cefazolin Sodium 2 GM IQ8 12/22 0000 AC 01/05 N/A 1 UNIT IV 0802 Clopidogrel Bisulfate 75 MG DAILY 12/16 1000 AC 01/04 PO 0833 Finasteride 5 MG DAILY 12/29 1104 AC 01/04 PO 0834 Furosemide 40 MG 7:30 AM, & 4:30 PM 01/03 1630 AC 01/05 PO 0624 Insulin Aspart 0 AT BEDTIME 12/27 2200 AC 01/04 SC 2125 Insulin Aspart 0 TIDAC 12/27 1700 AC 01/03 SC 1158 Isosorbide 30 MG DAILY 12/29 1115 AC 01/04 Mononitrate PO 0833 Magnesium Oxide 400 MG BID 01/02 1000 AC 01/04 PO 2058 Morphine Sulfate 2 MG Q4-6 PRN PRN 12/26 2030 AC IV Omeprazole 20 MG DAILY AC 01/02 0836 AC 01/05 PO 0625 Polyethylene Glycol 17 GM DAILY PRN 12/16 1015 AC PO Potassium Chloride 20 MEQ DAILY 01/02 1000 AC 01/04 PO 0833 Ramelteon 8 MG QPM 01/04 2200 AC 01/04 PO 2057 Ranolazine 500 MG BID 12/29 1042 AC 01/04 PO 2058 Sodium Chloride 2 SPRAY Q4P PRN 01/04 1615 AC BELTRAN Tamsulosin HCl 0.4 MG DAILY 12/29 1032 AC 01/04 PO 0833 Last 24 Hrs of Lab/Evens Results Last 24 Hrs of Labs/Mics: Laboratory Tests 01/05/17 0620: Sodium Pending, Potassium Pending, Chloride Pending, Carbon Dioxide Pending, Anion Gap Pending, BUN Pending, Creatinine Pending, BUN/Creatinine Ratio Pending , Magnesium Pending, CBC w Diff Pending, WBC Pending, RBC Pending, Hgb Pending, Hct Pending, MCV Pending, MCH Pending, RDW Pending, Plt Count Pending, MPV Pending, PUBS MCHC Pending Assessment/Plan Assessment: Mr. Mejia is a 76 y/o M with PMHx of CAD s/p CABG, PVD s/p LLE angioplasty and T2DM who is admitted with ARDS, now resolved, MSSA bacteremia 2/2 possible pneumonia and NSTEMI. #Staph aureus sepsis, resolving: Of unclear etiology but is likely secondary to pneumonia. Remains afebrile and without leukocytosis on day 17 of cefazolin. * ID following. Appreciate their recs. * Continue IV cefazolin for a total of 4 weeks from his negative blood cultures (12/20/16-01/17/17). * Patient has been afebrile and area of PICC line clean without signs of infection #NSTEMI in setting of CAD s/p quadruple bypass 1993: Clinically stable. * Cardiology following. Appreciate their recs. * Discontinue prior to admission HCTZ 25 mg PO daily on discharge. * Plavix 75 mg PO Daily, coreg 6.25 mg PO BID, imdur 30 mg PO daily, ranexa 500 mg PO BID. * Continue Lasix 40 mg PO BID. * ASA 81 mg PO daily with lipitor 40 mg PO daily. * OOB as tolerated. #BPH: * Resumed prior to admission tamsulosin 0.4 mg PO daily and finasteride 5 mg PO daily. * Patient passed voiding trial after removal of brown catheter yesterday #Acute respiratory distress * Recovered from ARDS, but had two episodes of pulm edema that were resolved with BiPAP therapy. * No issues over night, he remains on 1.5 L O2 via NC, will titrate down as tolerated (goal is room air prior to discharge, if not patient will require home O2). * Continue Lasix 40 mg twice daily PO. #DM * NSS TIDAC/HS * Accuchecks TIDAC/HS * Diabetic diet #Sleep * Patient's sleep has improved with rozerem, continue nightly. #Discharge disposition * Patient to be discharged to [facility] as suggested by PT, continue daily PT for improved gait and mobility. * DC likely Saturday or Saturday. Diet: Consistent carb 3 DVT PPx: HSQ and ALPs CODE: FULL Problem List: 1. BPH (benign prostatic hyperplasia) 2. MSSA (methicillin susceptible Staphylococcus aureus) septicemia 3. MODS (multiple organ dysfunction syndrome) 4. NSTEMI (non-ST elevated myocardial infarction) 5. Sepsis 6. PVD (peripheral vascular disease) with claudication 7. CAD (coronary artery disease) 8. ARDS (adult respiratory distress syndrome) Pain Ratin Pain Location: n/a Pain Goal: Remain pain free Pain Plan: Per pain pathway Tomorrow's Labs & Rationales: BEP (monitor eloectrolytes with aggressive diuresis), CBC (Monitor for leukocytosis with PICC line and 4 week course of IV cefazolin)
[2017-01-05 07:53] VITALS: BP 134/62
[2017-01-05 08:49] LABS: ABSOLUTE BASOPHIL COUNT 0 /CUMM (0.0-0.2); ABSOLUTE EOSINOPHIL COUNT 0.1 /CUMM (0.0-0.7); ABSOLUTE GRANULOCYTE CT 3.8 /CUMM (1.4-6.5); ABSOLUTE MONOCYTE COUNT 0.7 /CUMM (0.10-0.60); BASOPHIL % 0.8 % (0.0-2.0); EOSINOPHIL % 2.3 % (0-5); GRANULOCYTE % 67.3 % (42.2-75.2); HEMATOCRIT 34.3 % (42-52); MEAN CORPUSCULAR VOLUME 90.6 FL (80.0-94.0); MEAN PLATELET VOLUME 9.5 FL (7.4-10.4); PLATELET COUNT 213 /CUMM (130-400); RED BLOOD CELL CT 3.78 /CUMM (4.70-6.10); WHITE BLOOD CELL COUNT 5.7 /CUMM (4.8-10.8)
--- NOTE | 2017-01-05 14:37 | PN- Pulmonary ---
Subjective HPI/Critical Care Issues: The patient is awake and alert. He has been weaned off oxygen. He is feeling well overall. He has been ambulating around his room and with physical therapy. He offers no new complaints at present. Objective Current Medications: Current Medications Sig/Damon Start time Last Medication Dose Route Stop Time Status Admin Acetaminophen 1,000 MG Q6P PRN 12/18 2145 AC 12/18 N/A 1 UNIT IV 2144 Acetaminophen 650 MG Q6P PRN 12/16 0015 AC 01/01 PO 2332 Aspirin 81 MG DAILY 12/16 1000 AC 01/05 PO 0912 Atorvastatin Calcium 40 MG 1700 12/16 1700 AC 01/04 PO 1731 Carvedilol 6.25 MG BID 12/18 2200 AC 01/05 PO 0912 Cefazolin Sodium 2 GM IQ8 12/22 0000 AC 01/05 N/A 1 UNIT IV 0802 Clopidogrel Bisulfate 75 MG DAILY 12/16 1000 AC 01/05 PO 0912 Finasteride 5 MG DAILY 12/29 1104 AC 01/05 PO 0912 Furosemide 40 MG 7:30 AM, & 4:30 PM 01/03 1630 AC 01/05 PO 0624 Insulin Aspart 0 AT BEDTIME 12/27 2200 AC 01/04 SC 2125 Insulin Aspart 0 TIDAC 12/27 1700 AC 01/05 SC 1232 Isosorbide 30 MG DAILY 12/29 1115 AC 01/05 Mononitrate PO 0912 Magnesium Oxide 400 MG BID 01/02 1000 AC 01/05 PO 0912 Morphine Sulfate 2 MG Q4-6 PRN PRN 12/26 2030 AC IV Omeprazole 20 MG DAILY AC 01/02 0836 AC 01/05 PO 0625 Polyethylene Glycol 17 GM DAILY PRN 12/16 1015 AC PO Potassium Chloride 20 MEQ DAILY 01/02 1000 AC 01/05 PO 0912 Ramelteon 8 MG QPM 01/04 2200 AC 01/04 PO 2057 Ranolazine 500 MG BID 12/29 1042 AC 01/05 PO 0912 Sodium Chloride 2 SPRAY Q4P PRN 01/04 1615 AC 01/05 BELTRAN 1002 Tamsulosin HCl 0.4 MG DAILY 12/29 1032 AC 01/05 PO 0912 Vital Signs & I&O Last 24 Hrs of Vitals and I&O: Vital Signs Date Time Temp Pulse Resp B/P Pulse O2 O2 Flow FiO2 Ox Delivery Rate 01/05 1055 93 Room Air 01/05 0944 94 Room Air 01/05 0912 67 134/62 01/05 0912 67 134/62 01/05 0912 67 134/62 01/05 0912 67 134/62 01/05 0906 96 Nasal 1.0L Cannula 01/05 0800 Nasal 2.0L Cannula 01/05 0753 97.8 67 18 134/62 91 01/04 2100 74 140/60 01/04 2058 74 140/60 01/04 1600 Nasal 2.0L Cannula 01/04 1549 98.8 68 18 120/60 95 Nasal 2.0L Cannula Intake & Output 01/05 1600 01/05 0800 01/05 0000 Intake Total 100 100 Output Total 250 1000 Balance -150 -900 Intake, Oral 100 100 Number 1 Bowel Movements Output, Urine 250 1000 Patient 145 lb Weight Exam General Appearance: alert, awake, comfortable Head: atraumatic, normal appearance Neck: supple Respiratory: scattered ronchi, good airmovement Cardiovascular: regular rate/rhythm, normal S1 and S2 Abdomen: normal bowel sounds, soft, non-tender Extremities: no edema Skin: warm/dry Results Last 24 Hrs of Lab Results: Laboratory Tests 01/05/17 0620: Anion Gap 7, Estimated GFR > 60, BUN/Creatinine Ratio 16.7, Magnesium 1.7, CBC w Diff NO MAN DIFF REQ, RBC 3.78 L, MCV 90.6, MCH 30.0, RDW 15.0 H, MPV 9.5, Gran % 67.3, Lymphocytes % 18.0 L, Monocytes % 11.6 H, Eosinophils % 2.3, Basophils % 0.8, Absolute Granulocytes 3.8, Absolute Lymphocytes 1.0 L, Absolute Monocytes 0.7 H, Absolute Eosinophils 0.1, Absolute Basophils 0, PUBS MCHC 33.0 Diagnostic Data CXR Findings: 1. Suspect interval slight progression in pulmonary edema and small bilateral pleural effusions. 2. No change in bibasilar subsegmental atelectasis. Impression/Plan Impression/Plan Impression/Plan: 1. NSTEMI, systolic heart failure. 2. Staph aureus bactermia. 3. Pulmonary edema, improved with diuresis and Bipap. Recommendations: * Complete 4 week antibiotic course. * Negative fluid balance. * Monitor input/output. * PT/increase activity. * DVT prophylaxis at all times. * Discharge planning.
[2017-01-05 16:26] VITALS: BP 128/58
[2017-01-05 23:36] VITALS: BP 140/60
[2017-01-06 08:02] VITALS: BP 138/60
--- NOTE | 2017-01-06 08:43 | PN- Housestaff ---
CHRISTIANE CRUZ 01/06/17 0843: Subjective Follow-up For: NSTEMI Systolic heart failure ARDS with acute respiratory distress Pulmonary edema Multiorgan failure Staph Aureus MSSA Sepsis Tele-Events Since Last Visit: Sinus rhythm, 60 to 80s, PVCs Subjective: Seen and examined patient. Offers no complaints states that he's feeling much better. denies dyspnea, orthopnea, chest pain or palpitations. Review of Systems Constitutional: Denies: chills, diaphoresis, fever, malaise, weakness, unexplained weight loss. Cardiovascular: Denies: chest pain, edema, orthopena, palpitations, peripheral edema, syncope. Respiratory: Denies: cough, hemoptysis, orthopnea, short of breath, sputum production, stridor, wheezing. Objective Last 24 Hrs of Vital Signs/I&O Vital Signs Date Time Temp Pulse Resp B/P Pulse O2 O2 Flow FiO2 Ox Delivery Rate 01/06 0939 62 130/60 01/06 0939 62 130/60 01/06 0939 62 130/60 01/06 0939 62 130/60 01/06 0802 97.3 62 18 138/60 92 Room Air 01/05 2336 97.9 74 18 140/60 92 Room Air 01/05 1626 98.0 68 18 128/58 18 Room Air Intake & Output 01/06 1600 01/06 0800 01/06 0000 Intake Total 100 410 Output Total 400 Balance 100 10 Intake, IV 70 Intake, Oral 100 340 Output, Urine 400 Patient 140 lb Weight Physical Exam General Appearance: Alert, Oriented X3, Cooperative Cardiovascular: Normal S1, Normal S2 Lungs: Clear to Auscultation, Normal Air Movement Abdomen: Normal Bowel Sounds, Soft Extremities: No Edema Current Medications: Current Medications Sig/Damon Start time Last Medication Dose Route Stop Time Status Admin Acetaminophen 1,000 MG Q6P PRN 12/18 2145 AC 12/18 N/A 1 UNIT IV 2144 Acetaminophen 650 MG Q6P PRN 12/16 0015 AC 01/01 PO 2332 Aspirin 81 MG DAILY 12/16 1000 AC 01/06 PO 0940 Atorvastatin Calcium 40 MG 1700 12/16 1700 AC 01/05 PO 1636 Carvedilol 6.25 MG BID 12/18 2200 AC 01/06 PO 0939 Cefazolin Sodium 2 GM IQ8 12/22 0000 AC 01/06 N/A 1 UNIT IV 0839 Clopidogrel Bisulfate 75 MG DAILY 12/16 1000 AC 01/06 PO 0939 Finasteride 5 MG DAILY 12/29 1104 AC 01/06 PO 0939 Furosemide 40 MG 7:30 AM, & 4:30 PM 01/03 1630 AC 01/06 PO 0632 Insulin Aspart 0 AT BEDTIME 12/27 2200 AC 01/05 SC 2115 Insulin Aspart 0 TIDAC 12/27 1700 AC 01/06 SC 0839 Isosorbide 30 MG DAILY 12/29 1115 AC 01/06 Mononitrate PO 0939 Magnesium Oxide 400 MG ONE ONE 01/06 1045 DC 01/06 PO 01/06 1046 1157 Magnesium Oxide 400 MG BID 01/02 1000 AC 01/06 PO 0939 Morphine Sulfate 2 MG Q4-6 PRN PRN 12/26 2030 AC IV Omeprazole 20 MG DAILY AC 01/02 0836 AC 01/06 PO 0631 Polyethylene Glycol 17 GM DAILY PRN 12/16 1015 AC PO Potassium Chloride 40 MEQ ONCE ONE 01/06 1045 DC 01/06 PO 01/06 1046 1157 Potassium Chloride 20 MEQ DAILY 01/02 1000 AC 01/06 PO 0939 Ramelteon 8 MG QPM 01/04 2200 AC 01/05 PO 2107 Ranolazine 500 MG BID 12/29 1042 AC 01/06 PO 0939 Sodium Chloride 2 SPRAY Q4P PRN 01/04 1615 AC 01/05 BELTRAN 1002 Tamsulosin HCl 0.4 MG DAILY 12/29 1032 AC 01/06 PO 0939 Last 24 Hrs of Lab/Evens Results Last 24 Hrs of Labs/Mics: Laboratory Tests 01/06/17 0600: Anion Gap 8, Estimated GFR > 60, BUN/Creatinine Ratio 18.0, Magnesium 1.6, CBC w Diff NO MAN DIFF REQ, RBC 3.46 L, MCV 90.1, MCH 30.0, RDW 15.2 H, MPV 9.5, Gran % 60.1, Lymphocytes % 24.2, Monocytes % 12.6 H, Eosinophils % 2.6, Basophils % 0.5, Absolute Granulocytes 3.0, Absolute Lymphocytes 1.2, Absolute Monocytes 0.6, Absolute Eosinophils 0.1, Absolute Basophils 0, PUBS MCHC 33.3 Assessment/Plan Assessment: Mr. Mejia is a 76 y/o M with PMHx of CAD s/p CABG, PVD s/p LLE angioplasty and T2DM who is admitted with ARDS, now resolved, MSSA bacteremia 2/2 possible pneumonia and NSTEMI. #Staph aureus sepsis, resolving: Of unclear etiology but is likely secondary to pneumonia. Remains afebrile and without leukocytosis on day 18 of cefazolin. * ID following. Appreciate their recs. * Continue IV cefazolin for a total of 4 weeks from his negative blood cultures (12/20/16-01/17/17). * Patient has been afebrile and area of PICC line clean without signs of infection #NSTEMI in setting of CAD s/p quadruple bypass 1994: Clinically stable. * Cardiology following. Appreciate their recs. * Discontinue prior to admission HCTZ 25 mg PO daily on discharge. * Plavix 75 mg PO Daily, coreg 6.25 mg PO BID, imdur 30 mg PO daily, ranexa 500 mg PO BID. * Continue Lasix 40 mg PO BID. * ASA 81 mg PO daily with lipitor 40 mg PO daily. * OOB as tolerated. #BPH: * tamsulosin 0.4 mg PO daily and finasteride 5 mg PO daily. * Patient passed voiding trial after removal of brown catheter yesterday #Acute respiratory distress * Recovered from ARDS, but had two episodes of pulm edema that were resolved with BiPAP therapy. * No issues over night, he remains on 1.5 L O2 via NC, will titrate down as tolerated (goal is room air prior to discharge, if not patient will require home O2). * Continue Lasix 40 mg twice daily PO. #DM * NSS TIDAC/HS * Accuchecks TIDAC/HS * Diabetic diet #Sleep * Patient's sleep has improved with rozerem, continue nightly. #Discharge disposition * Patient to be discharged to [facility] as suggested by PT, continue daily PT for improved gait and mobility. Diet: Consistent carb 3 DVT PPx: HSQ and ALPs CODE: FULL Problem List: 1. ARDS (adult respiratory distress syndrome) 2. BPH (benign prostatic hyperplasia) 3. MSSA (methicillin susceptible Staphylococcus aureus) septicemia 4. CAD (coronary artery disease) Pain Ratin Pain Location: na Pain Goal: Pain 4 or less Pain Plan: current regimen Tomorrow's Labs & Rationales: bep [address] MD 01/06/17 1530: Attending MD Review Statement Attending Statement Attending MD Statement: examined this patient, discuss w/resident/PA/SIMULATION ANALYST, agreed w/resident/PA/SIMULATION ANALYST, reviewed EMR data (avail) Attending Assessment/Plan: Patient is stable for discharge to [facility]. No cardiac events over the weekend. Asymptomatic, feels well. CMR signed. Will require outpatient cardiology consult and likely cardiac catheterization given hospital events. Referrals and follow ups given.
[2017-01-06 08:44] LABS: ABSOLUTE BASOPHIL COUNT 0 /CUMM (0.0-0.2); ABSOLUTE EOSINOPHIL COUNT 0.1 /CUMM (0.0-0.7); ABSOLUTE LYMPH COUNT 1.2 /CUMM (1.2-3.4); ABSOLUTE MONOCYTE COUNT 0.6 /CUMM (0.10-0.60); BASOPHIL % 0.5 % (0.0-2.0); EOSINOPHIL % 2.6 % (0-5); GRANULOCYTE % 60.1 % (42.2-75.2); HEMATOCRIT 31.2 % (42-52); MEAN CORPUSCULAR HGB CONC 33.3 G/DL (33.0-37.0); MEAN CORPUSCULAR VOLUME 90.1 FL (80.0-94.0); MEAN PLATELET VOLUME 9.5 FL (7.4-10.4); PLATELET COUNT 184 /CUMM (130-400); RBC DISTRIBUTION WIDTH 15.2 % (11.5-14.5); RED BLOOD CELL CT 3.46 /CUMM (4.70-6.10)
--- NOTE | 2017-01-06 08:46 | PN- Housestaff ---
Assessment/Plan Assessment: Mr. Mejia is a 76 y/o M with PMHx of CAD s/p CABG, PVD s/p LLE angioplasty and T2DM who is admitted with ARDS, now resolved, MSSA bacteremia 2/2 possible pneumonia and NSTEMI. #Staph aureus sepsis, resolving: Of unclear etiology but is likely secondary to pneumonia. Remains afebrile and without leukocytosis on day 17 of cefazolin. * ID following. Appreciate their recs. * Continue IV cefazolin for a total of 4 weeks from his negative blood cultures (12/20/16-01/17/17). * Patient has been afebrile and area of PICC line clean without signs of infection #NSTEMI in setting of CAD s/p quadruple bypass 1993: Clinically stable. * Cardiology following. Appreciate their recs. * Discontinue prior to admission HCTZ 25 mg PO daily on discharge. * Plavix 75 mg PO Daily, coreg 6.25 mg PO BID, imdur 30 mg PO daily, ranexa 500 mg PO BID. * Continue Lasix 40 mg PO BID. * ASA 81 mg PO daily with lipitor 40 mg PO daily. * OOB as tolerated. #BPH: * Resumed prior to admission tamsulosin 0.4 mg PO daily and finasteride 5 mg PO daily. * Patient passed voiding trial after removal of brown catheter yesterday #Acute respiratory distress * Recovered from ARDS, but had two episodes of pulm edema that were resolved with BiPAP therapy. * No issues over night, he remains on 1.5 L O2 via NC, will titrate down as tolerated (goal is room air prior to discharge, if not patient will require home O2). * Continue Lasix 40 mg twice daily PO. #DM * NSS TIDAC/HS * Accuchecks TIDAC/HS * Diabetic diet #Sleep * Patient's sleep has improved with rozerem, continue nightly. #Discharge disposition * Patient to be discharged to [facility] as suggested by PT, continue daily PT for improved gait and mobility. * DC likely Saturday or Saturday. Diet: Consistent carb 3 DVT PPx: HSQ and ALPs CODE: FULL
--- NOTE | 2017-01-06 11:36 | PN- Pulmonary ---
Subjective HPI/Critical Care Issues: The patient is awake and alert. He reports feeling markedly improved. He denies any shortness breath, chest pain, fever, chills, abdominal pain or any new complaints. He is awaiting discharge to rehabilitation. Objective Current Medications: Current Medications Sig/Damon Start time Last Medication Dose Route Stop Time Status Admin Acetaminophen 1,000 MG Q6P PRN 12/18 2145 AC 12/18 N/A 1 UNIT IV 2144 Acetaminophen 650 MG Q6P PRN 12/16 0015 AC 01/01 PO 2332 Aspirin 81 MG DAILY 12/16 1000 AC 01/06 PO 0940 Atorvastatin Calcium 40 MG 1700 12/16 1700 AC 01/05 PO 1636 Carvedilol 6.25 MG BID 12/18 2200 AC 01/06 PO 0939 Cefazolin Sodium 2 GM IQ8 12/22 0000 AC 01/06 N/A 1 UNIT IV 0839 Clopidogrel Bisulfate 75 MG DAILY 12/16 1000 AC 01/06 PO 0939 Finasteride 5 MG DAILY 12/29 1104 AC 01/06 PO 0939 Furosemide 40 MG 7:30 AM, & 4:30 PM 01/03 1630 AC 01/06 PO 0632 Insulin Aspart 0 AT BEDTIME 12/27 2200 AC 01/05 SC 2115 Insulin Aspart 0 TIDAC 12/27 1700 AC 01/06 SC 0839 Isosorbide 30 MG DAILY 12/29 1115 AC 01/06 Mononitrate PO 0939 Magnesium Oxide 400 MG ONE ONE 01/06 1045 DC PO 01/06 1046 Magnesium Oxide 400 MG BID 01/02 1000 AC 01/06 PO 0939 Morphine Sulfate 2 MG Q4-6 PRN PRN 12/26 2030 AC IV Omeprazole 20 MG DAILY AC 01/02 0836 AC 01/06 PO 0631 Polyethylene Glycol 17 GM DAILY PRN 12/16 1015 AC PO Potassium Chloride 40 MEQ ONCE ONE 01/06 1045 DC PO 01/06 1046 Potassium Chloride 20 MEQ DAILY 01/02 1000 AC 01/06 PO 0939 Ramelteon 8 MG QPM 01/04 2200 AC 01/05 PO 2107 Ranolazine 500 MG BID 12/29 1042 AC 01/06 PO 0939 Sodium Chloride 2 SPRAY Q4P PRN 01/04 1615 AC 01/05 BELTRAN 1002 Tamsulosin HCl 0.4 MG DAILY 12/29 1032 AC 01/06 PO 0939 Vital Signs & I&O Last 24 Hrs of Vitals and I&O: Vital Signs Date Time Temp Pulse Resp B/P Pulse O2 O2 Flow FiO2 Ox Delivery Rate 01/06 939 62 130/60 01/06 0939 62 130/60 01/06 0939 62 130/60 01/06 0939 62 130/60 01/06 0802 97.3 62 18 138/60 92 Room Air 01/05 2336 97.9 74 18 140/60 92 Room Air 01/05 1626 98.0 68 18 128/58 18 Room Air Intake & Output 01/06 1600 01/06 0800 01/06 0000 Intake Total 100 410 Output Total 400 Balance 100 10 Intake, IV 70 Intake, Oral 100 340 Output, Urine 400 Patient 140 lb Weight Exam General Appearance: alert, awake, comfortable Head: atraumatic, normal appearance Neck: supple Respiratory: lung rao bilaterally sound clear Cardiovascular: regular rate/rhythm, normal S1 and S2 Abdomen: normal bowel sounds, soft, non-tender Extremities: no edema Skin: warm/dry Results Last 24 Hrs of Lab Results: Laboratory Tests 01/06/17 0600: Anion Gap 8, Estimated GFR > 60, BUN/Creatinine Ratio 18.0, Magnesium 1.6, CBC w Diff NO MAN DIFF REQ, RBC 3.46 L, MCV 90.1, MCH 30.0, RDW 15.2 H, MPV 9.5, Gran % 60.1, Lymphocytes % 24.2, Monocytes % 12.6 H, Eosinophils % 2.6, Basophils % 0.5, Absolute Granulocytes 3.0, Absolute Lymphocytes 1.2, Absolute Monocytes 0.6, Absolute Eosinophils 0.1, Absolute Basophils 0, PUBS MCHC 33.3 Impression/Plan Impression/Plan Impression/Plan: 1. NSTEMI, systolic heart failure. 2. Staph aureus sepsis. 3. Pulmonary edema, improved with diuresis and Bipap. 4. Acute respiratory distress syndrome - improved. 5. Diabetes. Recommendations: * Complete 4 week antibiotic course. * Monitor input/output. * PT/increase activity. * DVT prophylaxis at all times. * Discharge to [facility].
[2017-01-06 12:56] VITALS: BP 130/60
--- NOTE | 2017-01-06 15:44 | PN- Cardiology ---
Subjective Subjective: Patient is resting comfortably and offers no complaint. Ambulating without any symptoms. Objective Vital Signs and I&Os Vital Signs Date Time Temp Pulse Resp B/P Pulse O2 O2 Flow FiO2 Ox Delivery Rate 01/06 1256 97.3 62 18 130/60 01/06 0939 62 130/60 01/06 0939 62 130/60 01/06 0939 62 130/60 01/06 0939 62 130/60 01/06 0802 97.3 62 18 138/60 92 Room Air 01/05 2336 97.9 74 18 140/60 92 Room Air 01/05 1626 98.0 68 18 128/58 18 Room Air Intake & Output 01/06 1600 01/06 0800 01/06 0000 01/05 1600 01/05 0800 01/05 0000 Intake Total 500 100 410 730 100 100 Output Total 200 400 656 704 9150 Balance 300 100 10 205 -150 -900 Intake, IV 70 70 Intake, Oral 500 100 340 660 100 100 Number 1 1 Bowel Movements Output, Urine 200 [phone] Patient 140 lb 145 lb Weight Physical Exam: General: no apparent distress. Alert. Eyes: No obvious scleral icterus. HEENT: No jugular venous distention or abnormal jugular venous pulsations. Cardiovascular: Normal intensity S1/S2. Regular. Respiratory: Lungs clear to auscultation bilaterally. Abdomen: no guarding or rebound tenderness. Musculoskeletal: No clubbing or cyanosis noted, no edema Skin: Warm Neurologic: No gross focal deficits noted. Current Medications: Current Medications Sig/Damon Start time Last Medication Dose Route Stop Time Status Admin Acetaminophen 1,000 MG Q6P PRN 12/18 2145 AC 12/18 N/A 1 UNIT IV 2144 Acetaminophen 650 MG Q6P PRN 12/16 0015 AC 01/01 PO 2332 Aspirin 81 MG DAILY 12/16 1000 AC 01/06 PO 0940 Atorvastatin Calcium 40 MG 1700 12/16 1700 AC 01/05 PO 1636 Carvedilol 6.25 MG BID 12/18 2200 AC 01/06 PO 0939 Cefazolin Sodium 2 GM IQ8 12/22 0000 AC 01/06 N/A 1 UNIT IV 0839 Clopidogrel Bisulfate 75 MG DAILY 12/16 1000 AC 01/06 PO 0939 Finasteride 5 MG DAILY 12/29 1104 AC 01/06 PO 0939 Furosemide 40 MG 7:30 AM, & 4:30 PM 01/03 1630 AC 01/06 PO 0632 Insulin Aspart 0 AT BEDTIME 12/27 2200 AC 01/05 SC 2115 Insulin Aspart 0 TIDAC 12/27 1700 AC 01/06 SC 0839 Isosorbide 30 MG DAILY 12/29 1115 AC 01/06 Mononitrate PO 0939 Magnesium Oxide 400 MG ONE ONE 01/06 1045 DC 01/06 PO 01/06 1046 1157 Magnesium Oxide 400 MG BID 01/02 1000 AC 01/06 PO 0939 Morphine Sulfate 2 MG Q4-6 PRN PRN 12/26 2030 AC IV Omeprazole 20 MG DAILY AC 01/02 0836 AC 01/06 PO 0631 Polyethylene Glycol 17 GM DAILY PRN 12/16 1015 AC PO Potassium Chloride 40 MEQ ONCE ONE 01/06 1045 DC 01/06 PO 01/06 1046 1157 Potassium Chloride 20 MEQ DAILY 01/02 1000 AC 01/06 PO 0939 Ramelteon 8 MG QPM 01/04 2200 AC 01/05 PO 2107 Ranolazine 500 MG BID 12/29 1042 AC 01/06 PO 0939 Sodium Chloride 2 SPRAY Q4P PRN 01/04 1615 AC 01/05 BELTRAN 1002 Tamsulosin HCl 0.4 MG DAILY 12/29 1032 AC 01/06 PO 0939 Results Last 48 Hrs of Labs/Mics: Laboratory Tests 01/06/17 0600: Anion Gap 8, Estimated GFR > 60, BUN/Creatinine Ratio 18.0, Magnesium 1.6, CBC w Diff NO MAN DIFF REQ, RBC 3.46 L, MCV 90.1, MCH 30.0, RDW 15.2 H, MPV 9.5, Gran % 60.1, Lymphocytes % 24.2, Monocytes % 12.6 H, Eosinophils % 2.6, Basophils % 0.5, Absolute Granulocytes 3.0, Absolute Lymphocytes 1.2, Absolute Monocytes 0.6, Absolute Eosinophils 0.1, Absolute Basophils 0, PUBS MCHC 33.3 01/05/17 0620: Anion Gap 7, Estimated GFR > 60, BUN/Creatinine Ratio 16.7, Magnesium 1.7, CBC w Diff NO MAN DIFF REQ, RBC 3.78 L, MCV 90.6, MCH 30.0, RDW 15.0 H, MPV 9.5, Gran % 67.3, Lymphocytes % 18.0 L, Monocytes % 11.6 H, Eosinophils % 2.3, Basophils % 0.8, Absolute Granulocytes 3.8, Absolute Lymphocytes 1.0 L, Absolute Monocytes 0.7 H, Absolute Eosinophils 0.1, Absolute Basophils 0, PUBS MCHC 33.0 Recent Imaging Studies: Telemetry tracings from overnight were reviewed and shows sinus rhythm Assessment/Plan Assessment/Plan 1. Recurrent, acute respiratory distress with CHF exacerbation 2. Sepsis with persistent positive blood cultures 3. Non-ST elevation myocardial infarction-clinically stable at the moment. 4. Multiple organ dysfunction syndrome improved 5. History of peripheral vascular disease 6. Ischemic cardiomyopathy-most recent ejection fraction 40-45% Patient remains hemodynamically stable and is currently asymptomatic with no significant events noted on telemetry. He is ambulating without any symptoms. He is awaiting STR placement. He should follow-up with his outpatient officer captain within one week of discharge for continued assessment. He should be continued on his cardiac medications. Nathen Ahn MD [facility] Continue telemetry? No
== END 2017-01-06 16:53 | DRG 870 ==
LOC: ENRESERVDT → ENRESERVTM → ERH 20:02 → ERHI 22:28 → 1NO 22:28 → ENPENDDIS 22:28 → CRI 22:28 → 1NO 12-16 01:43 → CRI 12-16 13:07 → 1NO 12-29 21:29 → CRI 12-30 09:13 → 1NO 01-03 22:44
PROVIDERS: Dermatology; Emergency Medicine; Internal Medicine; Internal Medicine Critical Care Medicine; Internal Medicine Hematology & Oncology; Student in an Organized Health Care Education/Training Program; ADMIT Student in an Organized Health Care Education/Training Program
PROC: 5A1955Z Respiratory Ventilation, Greater than 96 Consecutive Hours (ICD-10-PCS; principal; 2016-12-17)
PROC: 0BH17EZ Insertion of Endotracheal Airway into Trachea, Via Natural or Artificial Opening (ICD-10-PCS; principal; 2016-12-17)
PROC: 06HM33Z Insertion of Infusion Device into Right Femoral Vein, Percutaneous Approach (ICD-10-PCS; 2016-12-18)
PROC: B246ZZ4 Ultrasonography of Right and Left Heart, Transesophageal (ICD-10-PCS; 2016-12-25)
DX: A41.01 Sepsis due to Methicillin susceptible Staphylococcus aureus (principal); J96.01 Acute respiratory failure with hypoxia; I21.4 Non-ST elevation (NSTEMI) myocardial infarction; I50.23 Acute on chronic systolic (congestive) heart failure; R65.21 Severe sepsis with septic shock; K72.00 Acute and subacute hepatic failure without coma; J18.9 Pneumonia, unspecified organism; I11.0 Hypertensive heart disease with heart failure; J80 Acute respiratory distress syndrome; N17.9 Acute kidney failure, unspecified; E11.9 Type 2 diabetes mellitus without complications; E78.5 Hyperlipidemia, unspecified; I73.9 Peripheral vascular disease, unspecified; Z85.51 Personal history of malignant neoplasm of bladder; I25.10 Atherosclerotic heart disease of native coronary artery without angina pectoris; E87.6 Hypokalemia; Z79.84 Long term (current) use of oral hypoglycemic drugs; K21.9 Gastro-esophageal reflux disease without esophagitis; N40.0 Benign prostatic hyperplasia without lower urinary tract symptoms; Z95.1 Presence of aortocoronary bypass graft
CPT/HCPCS: 1NSP; 87075; 87184; CCU; ERO; 36415; 73501; 81001; 82436; 87040; 87070; 87071; 87086; 87147; 87449; 87450; 87804; 87804-59; 93005; 93010; 93306; 93308; 93321; 93325; 94799; 96374; 97110-GO; 97112-GO; 97116-GO; 97162-GP; 97166-GO; 97530-GO; C1769; J0131; J0456; J0690; J0696; J1644; J1940; J2060; J3370; J3490; J7040; J7042; J7060

== ENCOUNTER 2017-01-12 19:02 | Emergency (ER) | payer OTHER, MEDICARE ==
[~2017-01-12] VITALS: Ht 175.3 cm; Wt 65.8 kg
[~2017-01-12 19:02] MED LIST changes: +ACYCLOVIR200 M1 PO; +ASPIRIN EC81 M1 PO; +CARVEDILOL12.5 M1 PO; +CEFAZOLIN-2 GM/100 M IV; +FINASTERIDE5 M1 PO; +FLOMAX0.4 M1 PO; +HYDROCHLOROTHIA25 M1 PO; +ISOSORBIDE MONO60 M1 PO; +KLOR-CON M2020 ME1 PO; +LASIX40 M1 PO; +LIPITOR80 M1 PO; +MAGNESIUM OXID400 M1 PO; +METFORMIN HCL500 M3 PO; +MINITRAN1 EAC2 TOP; +MIRALAX119 GM PO; +NITROGLYCERIN4.9 GM SL; +OMEPRAZOLE20 M3 PO; +PLAVIX75 M1 PO; +PROCARDIA XL60 M1 PO; +RANEXA500 M1 PO; +ROZEREM8 M1 PO
[2017-01-12] MEDS ORDERED: ZETIA10 M1 PO (19:47)
[2017-01-12 20:06] LABS: ABSOLUTE BASOPHIL COUNT 0 /CUMM (0.0-0.2); ABSOLUTE EOSINOPHIL COUNT 0.2 /CUMM (0.0-0.7); ABSOLUTE GRANULOCYTE CT 4.8 /CUMM (1.4-6.5); ABSOLUTE LYMPH COUNT 0.9 /CUMM (1.2-3.4); ABSOLUTE MONOCYTE COUNT 0.8 /CUMM (0.10-0.60); BASOPHIL % 0.3 % (0.0-2.0); EOSINOPHIL % 3.6 % (0-5); GRANULOCYTE % 70.5 % (42.2-75.2); HEMATOCRIT 34.1 % (42-52); MEAN CORPUSCULAR HGB 29.5 PG (27.0-31.0); MEAN CORPUSCULAR VOLUME 89.6 FL (80.0-94.0); MEAN PLATELET VOLUME 8.3 FL (7.4-10.4); PLATELET COUNT 213 /CUMM (130-400); RBC DISTRIBUTION WIDTH 15.4 % (11.5-14.5); RED BLOOD CELL CT 3.81 /CUMM (4.70-6.10); WHITE BLOOD CELL COUNT 6.7 /CUMM (4.8-10.8)
--- NOTE | 2017-01-12 20:39 | ED GENERAL ADULT ---
History of Present Illness General Chief Complaint: General Adult Stated Complaint: BIBA R/O DVT Source: patient Exam Limitations: no limitations Vital Signs & Intake/Output Vital Signs & Intake/Output Vital Signs Date Time Temp Pulse Resp B/P Pulse O2 O2 Flow FiO2 Ox Delivery Rate 01/13 1119 98.0 74 20 164/64 01/13 1023 97.8 70 20 186/86 98 Room Air 01/13 0809 97.0 78 20 154/78 96 Room Air 01/13 0604 97.1 80 18 162/70 97 Room Air 01/13 0603 Room Air 01/12 2251 96.9 83 18 169/75 96 Room Air 01/12 1940 98 Room Air 01/12 1910 97.3 81 18 179/79 98 Room Air ED Intake and Output 01/13 0000 01/12 1200 Intake Total Output Total Balance Patient 145 lb Weight Allergies Coded Allergies: Penicillins (HIVES 12/15/16) Reconcile Medications Aspirin (Aspirin*) 81 MG TAB.CHEW 1 TAB PO DAILY HEART (Reported) Atorvastatin Calcium (Lipitor) 80 MG TABLET 0.5 TAB PO DAILY CHOLESTEROL ( Reported) Carvedilol 12.5 MG TABLET 0.5 TAB PO BID HEART/BP (Reported) Cefazolin Sodium in 0.9 % NaCl (Cefazolin-0.9% NaCl 2 G/100 Ml) 2 GRAM/100 ML PLAST..BAG 2 GM IV Q8 Sepsis STOP DATE IS 01/17/17. Clopidogrel Bisulfate (Plavix) 75 MG TABLET 1 TAB PO DAILY BLOOD THINNER ( Reported) Ezetimibe (Zetia) 10 MG TABLET 1 TAB PO DAILY CHOLESTEROL (Reported) Finasteride 5 MG TABLET 1 TAB PO DAILY PROSTATE (Reported) Furosemide (Lasix) 40 MG TABLET 40 MG PO 7:30 AM, & 4:30 PM DIURETIC Isosorbide Mononitrate (Isosorbide Mononitrate ER) 60 MG TAB.ER.24H 0.5 TAB PO QAM CHEST/ANGINA (Reported) Magnesium Oxide 400 MG TABLET 400 MG PO BID sUPPLEMENT Metformin HCl 500 MG TABLET 1 TAB PO BID DM (Reported) Nitroglycerin 400 MCG/SPRAY SPRAY 1 SPRAY SL 4XDAILY PRN CHEST/JAW DISCOMFORT (Reported) Omeprazole 20 MG TABLET.DR 1 TAB PO DAILY AC GI (Reported) Polyethylene Glycol 3350 (Miralax) 17 GRAM/DOSE POWDER 17 GM PO DAILY PRN CONSTIPATION Potassium Chloride (Klor-Con M20) 20 MEQ TAB.ER.PRT 20 MEQ PO DAILY sUPPLEMENT Ramelteon (Rozerem) 8 MG TABLET 8 MG PO QPM PRN SLEEP Ranolazine (Ranexa) 500 MG TAB.ER.12H 1 TAB PO BID ANGINA/CHEST PAIN ( Reported) Tamsulosin HCl (Flomax) 0.4 MG CAP.ER.24H 1 CAP PO DAILY PROSTATE (Reported) Triage Nurses Notes Reviewed? yes Onset: Abrupt Duration: day(s): Timing: recent history HPI: 01/12/17 7:30 PM This is a 68-year-old male presents to the emergency department with intermittent right sided leg cramps. The patient states he had intermittent leg cramps over the past 3 days. He is currently in rehabilitation at [facility]. He has a PICC line. The onset of the symptoms have been abrupt, the duration has been 3 days, the severity is significant as his symptoms required to come to the emergency department for care. He denies fever, chest pain, or shortness of breath.. On physical exam he does have some tenderness to the right posterior thigh. There is no swelling. (ANTWAN NAVARRETE DO) Past History Travel History Traveled to [place] past 21 day No Medical History Any Pertinent Medical History? see below for history EENT: oral HSV Cardiovascular: CAD, hypertension, hyperlipidemia, PVD Endocrine: diabetes Cancer(s): bladder History of MRSA: No History of VRE: No History of CDIFF: No Influenza Vaccine: 08/28/16 Surgical History Surgical History: CABG, Balloon Angio of LLE. Psychosocial History Who do you live with Spouse Services at Home None What is your primary language Spanish Tobacco Use: Never used Family History Hx Contributory? No (ANTWAN NAVARRETE DO) Review of Systems Review of Systems Constitutional: Denies: fever. EENTM: Denies: visual changes. Respiratory: Denies: short of breath. Cardiovascular: Denies: chest pain. GI: Denies: abdominal pain. Genitourinary: Reports: no symptoms. Musculoskeletal: Reports: see HPI. Skin: Reports: no symptoms. Neurological/Psychological: Reports: no symptoms. Hematologic/Endocrine: Reports: no symptoms. Immunologic/Allergic: Reports: no symptoms. (ANTWAN NAVARRETE DO) Physical Exam Physical Exam General Appearance: alert, awake, anxious, mild distress Head: atraumatic Eyes: Bilateral: normal appearance, PERRL, EOMI. Ears, Nose, Throat: normal pharynx Neck: normal inspection, supple Respiratory: normal breath sounds, chest non-tender Cardiovascular: regular rate/rhythm Peripheral Pulses: 4+ dorsalis pedis (R), 4+ dorsalis pedis (L) Gastrointestinal: non-tender Back: normal range of motion Extremities: tenderness Neurologic/Psych: no motor/sensory deficits, awake, alert, oriented x 3 Skin: intact, normal color, warm/dry Comments: The patient does have some mild tenderness to the right posterior thigh. There is full range of motion to the hip and knee. Excellent right dorsalis pedis pulse. Core Measures ACS in differential dx? No CVA/TIA Diagnosis: No Severe Sepsis Present: No Septic Shock Present: No (ANTWAN NAVARRETE DO) Progress Differential Diagnoses I considered the following diagnoses in my evaluation of the patient: [Adverse drug reaction, statin-induced myalgia, electrolyte derangement, DVT] Plan of Care: Orders Procedure Date/time Status Add-on Test (ER Only) 01/12 2013 Active D-DIMER 01/13 1952 Complete COMPREHENSIVE METABOLIC PANEL 01/13 1932 Complete CBC WITHOUT DIFFERENTIAL 01/13 1932 Complete US-DUPLEX VENOUS EXTREM UNI 01/12 1931 Active Laboratory Tests 01/12/172012: D-Dimer Cancelled 01/12/171958: Anion Gap 11, Estimated GFR > 60, BUN/Creatinine Ratio 16.0, Glucose 124 H, Calcium 8.6, Total Bilirubin 0.5, AST 15 L, ALT 26, Alkaline Phosphatase 80, Total Protein 6.4, Albumin 3.0 L, Globulin 3.4, Albumin/Globulin Ratio 0.9 L, CBC w Diff NO MAN DIFF REQ, RBC 3.81 L, MCV 89.6, MCH 29.5, RDW 15.4 H, MPV 8.3, Gran % 70.5, Lymphocytes % 14.0 L, Monocytes % 11.6 H, Eosinophils % 3.6, Basophils % 0.3, Absolute Granulocytes 4.8, Absolute Lymphocytes 0.9 L, Absolute Monocytes 0.8 H, Absolute Eosinophils 0.2, Absolute Basophils 0, PUBS MCHC 33.0 01/12/171951: D-Dimer 496 H Initial ED EKG: none (ANTWAN NAVARRETE DO) Comments: 01/13/2017 7:21:38 AM patient signed out to me by 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 01/13/2017 10:39:[address] magaña pt has a psuedoaneurysm right common femoral artery. 3.3 cm with pedicle to common fem art. 01/13/2017 11:17:50 AM I have updated this patient's on test results and plan. She states he had a left leg stenting of what is presumed to be the femoral artery just less than a month ago. She will be arriving to the emergency department shortly. 01/13/2017 11:21:39 AM I have updated Brenden. He is asking for pain medication. 01/13/2017 11:42:48 AM patient's case discussed with Dr. CAMPBELL, who feels the patient is stable for outpatient management. 01/13/2017 12:54:03 PM patient's has arrived to the emergency department and I have updated her along with Brenden and the rest of his family. I have recommended that he hold off on physical therapy pending a reevaluation by a vascular surgeon. He has decided to return home as opposed to going back to the rehabilitation facility. (ANTONELLA DEE,ANTWAN Cortez) Departure Departure Condition: Stable Referrals: AYDE HUGHES MD (PCP/Family) Departure Forms: Customer Survey General Discharge Information Comments 01/12/17 11 PM The patient does have an elevated D-dimer. I think the muscle cramps in his right leg and the cause of his pain is likely related to his statin therapy. He will be held in the emergency department overnight for ultrasound in the a.m; assuming this is negative he can be D/C ed and his statin should be held, Percocet as needed for pain. The patient will be signed out to Dr. Cole at 7 AM (ANTWAN NAVARRETE DO) Departure Disposition: HOME OR SELF CARE Clinical Impression Primary Impression: Femoral artery pseudo-aneurysm, right Additional Instructions: Hold off on physical therapy until you see a vascular surgeon in follow-up, this should be done as soon as possible. Notify your primary care doctor of this emergency department visit and treatment plan. Return if any concerns or sudden worsening. Thank you for choosing the [facility] Emergency Department for your care. It was a pleasure to serve you today. Antwan Cole M.D. [facility] (ANTONELLA DEE,ANTWAN Cortez) Critical Care Note Critical Care Note Critical Care Time: non-applicable (LANDON MORGAN,ANTWAN Hilliard)
--- NOTE | 2017-01-13 10:43 | ULTRASOUND REPORT ---
US TRIPLEX LOWER EXTREMITY, RIGHT CLINICAL INFORMATION: Right leg pain and elevated d-dimer. COMPARISON: Right lower extremity Doppler ultrasound 12/27/2016. TECHNIQUE: Color-flow triplex imaging with spectral analysis and compression Doppler were performed on the right lower extremity. FINDINGS: Respiratory variation, normal compression and augmented flow are noted throughout the lower extremity. The visualized common femoral vein, superficial femoral vein, profunda femoral vein, popliteal vein and midcalf peroneal and posterior tibial venous segments show no evidence of deep venous thrombosis. Within the right groin anterior to the right common femoral artery there is a 3.3 x 2.6 x 2.9 cm vascular excrescence exhibiting kendall/adams arterial and venous Doppler flow that is most compatible with a pseudoaneurysm with a suspected pedicle in communication with the right common femoral artery. IMPRESSION: - Within the right groin anterior to the right common femoral artery there is a 3.3 x 2.6 x 2.9 cm vascular excrescence exhibiting kendall/adams arterial and venous Doppler flow that is most compatible with a pseudoaneurysm with a suspected pedicle in communication with the right common femoral artery. - No evidence of deep venous thrombosis. Findings discussed with Dr. Antwan Cole at 10:40 AM on 01/13/2017.
[2017-01-13 13:36] VITALS: BP 158/70
== END 2017-01-13 14:01 ==
LOC: ERH 19:02
PROVIDERS: Emergency Medicine
DX: I72.4 Aneurysm of artery of lower extremity (principal); M79.604 Pain in right leg

== ENCOUNTER 2017-01-28 08:50 | Observation (INO) | payer OTHER, MEDICARE ==
[~2017-01-28] VITALS: Ht 182.9 cm; Wt 63.5 kg
[~2017-01-28 08:50] MED LIST changes: +ZETIA10 M1 PO
[2017-01-28] MEDS ORDERED: ACIDOPHILUS1 EACH PO (09:00)
[2017-01-28] MEDS ORDERED: KLOR-CON20 ME1 PO (09:02)
--- NOTE | 2017-01-28 09:02 | NUR ---
PA STUDENT AT BEDSIDE FOR EVAL
--- NOTE | 2017-01-28 09:02 | NUR ---
76 YO MALE BIBA FROM HOME. PT C/O SOB SINCE LAST PM. PT HX OF RECENT SURGERY TO R FEMORAL ARTERY (REMVOAL OF ANEURYSM PER PT). PT STATES SURGERY WAS LAST SATURDAY. PER PT HIS VISING NURSE CAME OUT AND SAW HIM YESTERDAY AND SAID THE SITE LOOKED GOOD. SITE INTACT ON ARRIVAL WITH STAN IN PLACE. PER EMS, RA SATS WERE LOW 90s ON THEIR ARRIVAL, PT PLACED ON 4L NC AND SATS UP TO 97%. PT ARRIVES ALERT AND ORIENTED. RA SATS 95% AT THIS TIME. PLACED ON 2L FOR COMPFRT, SATS UP TO 98% WITH OXYGEN. PTS LUNGS CLEAR ON AUSCULTATION. PT DENIES PAIN. SINUS TACH ON MINOTOR. EKG COMPLETE ON ARIVAL.
--- NOTE | 2017-01-28 09:03 | ED GENERAL ADULT ---
History of Present Illness General Chief Complaint: Dyspnea (COPD, CHF, Other) Stated Complaint: BIBA FOR SOB Source: patient, old records Exam Limitations: no limitations Vital Signs & Intake/Output Vital Signs & Intake/Output Vital Signs Date Time Temp Pulse Resp B/P Pulse O2 O2 Flow FiO2 Ox Delivery Rate 01/28 1842 67.9 68 20 148/42 01/28 1838 97.6 66 24 148/62 01/28 1726 98.0 88 20 142/80 98 Nasal 2.0L Cannula / 1600 Nasal 2.0L Cannula / 1505 98.3 73 18 170/83 96 Nasal 2.0L Cannula / 1238 98.8 01/28 1225 108 20 160/77 94 Room Air 01/28 1007 97.5 101 20 149/86 98 Nasal 2.0L Cannula / 0903 98 Nasal 2.0L Cannula / 0903 98 Nasal 2.0L Cannula / 0854 96.6 111 20 174/91 95 Room Air Allergies Coded Allergies: No Known Allergies (01/28/17) Reconcile Medications Aspirin (Ecotrin*) 81 MG TABLET.DR 1 TAB PO DAILY HEART (Reported) Atorvastatin Calcium (Lipitor) 80 MG TABLET 0.5 TAB PO DAILY CHOLESTEROL ( Reported) Carvedilol 12.5 MG TABLET 0.5 TAB PO BID HEART/BP (Reported) Clopidogrel Bisulfate (Plavix) 75 MG TABLET 1 TAB PO DAILY BLOOD THINNER ( Reported) Ezetimibe (Zetia) 10 MG TABLET 1 TAB PO DAILY CHOLESTEROL (Reported) Finasteride 5 MG TABLET 1 TAB PO DAILY PROSTATE (Reported) Furosemide (Lasix) 40 MG TABLET 40 MG PO 7:30 AM, & 4:30 PM DIURETIC Isosorbide Mononitrate (Isosorbide Mononitrate ER) 60 MG TAB.ER.24H 0.5 TAB PO QAM CHEST/ANGINA (Reported) Lactobacillus Acidophilus (Acidophilus) 1 EACH CAPSULE 1 CAP PO BID GI ( Reported) Magnesium Oxide 400 MG TABLET 400 MG PO BID sUPPLEMENT Metformin HCl 500 MG TABLET 1 TAB PO BID DM (Reported) Nitroglycerin 400 MCG/SPRAY SPRAY 1 SPRAY SL 4XDAILY PRN CHEST/JAW DISCOMFORT (Reported) Omeprazole 20 MG TABLET.DR 1 TAB PO DAILY AC GI (Reported) Oxycodone HCl 5 MG TABLET 1 TAB PO Q4-PRN PRN PAIN (Reported) Polyethylene Glycol 3350 (Miralax) 17 GRAM/DOSE POWDER 17 GM PO DAILY PRN CONSTIPATION Potassium Chloride (Klor-Con) 20 MEQ PACKET 1 PAC PO DAILY SUPPLEMENT ( Reported) Ramelteon (Rozerem) 8 MG TABLET 8 MG PO QPM PRN SLEEP Ranolazine (Ranexa) 500 MG TAB.ER.12H 1 TAB PO BID ANGINA/CHEST PAIN ( Reported) Tamsulosin HCl (Flomax) 0.4 MG CAP.ER.24H 1 CAP PO DAILY PROSTATE (Reported) Triage Nurses Notes Reviewed? yes HPI: Patient is a 76 year old male presents complaining of sensation of difficulty taking a deep breath for 2 days. Patient had surgery approximately 2-3 weeks ago, arterial stenting of the right lower extremity. 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 Pain to the right foot and swelling over the past 2-3 days. Patient was 91% on room air when EMS arrived at his home. Improved with 2L of supplemental oxygen. Patient having difficulty ambulating due to pain in his right foot, moderate at rest, severe with range of motion. Decreased sensation to his right foot. Denies fevers, chills, chest pain, cough. (FLASH HAMMOND) Past History Travel History Traveled to [place] past 21 day No Medical History Any Pertinent Medical History? see below for history EENT: oral HSV Cardiovascular: CAD, hypertension, hyperlipidemia, PVD Endocrine: diabetes Cancer(s): bladder History of MRSA: No History of VRE: No History of CDIFF: No Influenza Vaccine: 08/28/16 Surgical History Surgical History: CABG, Balloon Angio of LLE. Psychosocial History Who do you live with Spouse Services at Home None What is your primary language Cook Islander Tobacco Use: Quit >30 days ago ETOH Use: denies use Illicit Drug Use: denies illicit drug use Family History Hx Contributory? No (FLASH HAMMOND) Review of Systems Review of Systems Constitutional: Denies: chills, fever. EENTM: Reports: no symptoms. Respiratory: Reports: see HPI. Denies: cough, wheezing. Cardiovascular: Denies: chest pain, orthopena. GI: Denies: abdominal pain. Musculoskeletal: Reports: see HPI. Skin: Reports: no symptoms. Neurological/Psychological: Reports: numbness (right foot). Hematologic/Endocrine: Denies: bruising, bleeding. Immunologic/Allergic: Denies: splenectomy. (FLASH HAMMOND) Physical Exam Physical Exam General Appearance: alert, awake Head: atraumatic, normal appearance Eyes: Bilateral: normal appearance, PERRL, EOMI. Ears, Nose, Throat: hearing grossly normal Neck: normal inspection, supple, full range of motion Respiratory: no respiratory distress, mild diminished bibasilar. No audible rales, rhonchi or wheezing Cardiovascular: regular rate/rhythm Peripheral Pulses: 2+ tibialis posterior (R), 2+ dorsalis pedis (R) Gastrointestinal: soft, non-tender Back: normal inspection, normal range of motion, mild lumbar tenderness in the area of L3 Extremities: normal capillary refill, normal range of motion, trace edema right foot. Full range of motion right lower extremity. No calf tenderness Neurologic/Psych: awake, alert, oriented x 3, patient reports no sensation to light or sharp touch right medial foot. sensation diminished to light touch right lateral foot. Normal sensation right leg and thigh. Normal motor function Skin: intact, normal color, warm/dry Core Measures ACS in differential dx? Yes ASA ordered for poss ACS? Yes-ordered CVA/TIA Diagnosis: No Severe Sepsis Present: No Septic Shock Present: No (FLASH HAMMOND) Progress Differential Diagnoses I considered the following diagnoses in my evaluation of the patient: CHF, COPD, ACS, PE, DVT, arterial occlusion, nerve impingement, post-operative pain. Plan of Care: Orders Procedure Date/time Status CBC WITHOUT DIFFERENTIAL 01/29 0600 Active BASIC ELECTROLYTES PLUS BUN&CR 01/29 0600 Active Heart Healthy Diet 01/28 L Active TROPONIN LEVEL 01/28 2200 Active EKG 01/28 2200 Active Vital Signs 01/28 1654 Active Teach/Educate 01/28 1654 Active Pain Treatment and Response 01/28 1654 Active Nutritional Intake, Monitor 01/28 1654 Active Isolation 01/28 1654 Active Intake & Output 01/28 1654 Active Patient Care Conference 01/28 1654 Active Activity/Ambulation 01/28 1654 Active TROPONIN LEVEL 01/28 1600 Complete EKG 01/28 1600 Active Pathway - chart 01/28 1521 Active TRC EVALUATION (GEN) 01/28 1515 Active Pathway - chart 01/28 1515 Active House Staff 01/28 1515 Active Patient Data 01/[address] in observation 01/28 1348 Active Patient Data 01/28 1324 Active Misc Message 01/28 1315 Active ED Holding Orders 01/28 1315 Active Code Status 01/28 1315 Active Add-on Test (ER Only) 01/28 0935 Active Telemetry/Ore Crushing Dust Collector 01/28 0935 Active D-DIMER 01/28 09 Complete B-TYPE NATRIURETIC PEP (BNP) 01/28 09 Complete TROPONIN LEVEL 01/28 09 Complete COMPREHENSIVE METABOLIC PANEL 01/28 09 Complete CBC WITHOUT DIFFERENTIAL 01/28 905 Complete Intake & Output 01/28 0857 Complete EKG 01/28 0851 Active US-DUPLEX SCAN LOWER EXT ARTER 01/28 UNK Active Weight 01/28 UNK Active Intake & Output 01/28 UNK Active FingerStick- Glucose 01/28 UNK Active Current Medications Sig/Damon Start time Last Medication Dose Stop Time Status Admin Atorvastatin Calcium 40 MG DAILY 01/29 1000 AC (Lipitor) Clopidogrel Bisulfate 75 MG DAILY 01/29 1000 AC (Plavix) Ezetimibe 10 MG DAILY 01/29 1000 AC (Zetia) Finasteride 5 MG DAILY 01/29 1000 AC (Proscar) Isosorbide 30 MG QAM 01/29 1000 AC Mononitrate (Imdur) Potassium Chloride 20 MEQ DAILY 01/29 1000 AC (Klor) Omeprazole 20 MG DAILY AC 01/29 0700 AC (Prilosec) Lactobacillus 1 CAP BID 01/28 2200 AC Acidophilus (Probiotic) Magnesium Oxide 400 MG BID 01/28 2200 AC (Mag-Ox) Ramelteon 8 MG QPM PRN 01/28 2200 AC (Rozerem) Ranolazine 500 MG BID 01/28 2200 AC (Ranexa) Acetaminophen 650 MG Q6P PRN 01/28 1530 AC (Tylenol) Polyethylene Glycol 17 GM DAILY PRN 01/28 1530 AC (Miralax) Laboratory Tests 01/28/17 1705: Troponin I 0.12 *H 01/28/17 0907: Anion Gap 9, Estimated GFR > 60, BUN/Creatinine Ratio 28.3 H, Glucose 198 H, Calcium 9.4, Total Bilirubin 0.7, AST 11 L, ALT 27, Alkaline Phosphatase 93, Troponin I 0.10, Vlz-W-Ikkmsrurqpp Pept 75128 H, Total Protein 6.8, Albumin 3.3 L, Globulin 3.5, Albumin/Globulin Ratio 0.9 L, D-Dimer 395 H, CBC w Diff NO MAN DIFF REQ, RBC 4.07 L, MCV 88.3, MCH 29.4, RDW 14.8 H, MPV 8.4, Gran % 83.0 H, Lymphocytes % 7.0 L, Monocytes % 8.3, Eosinophils % 1.5, Basophils % 0.2, Absolute Granulocytes 8.1 H, Absolute Lymphocytes 0.7 L, Absolute Monocytes 0.8 H, Absolute Eosinophils 0.1, Absolute Basophils 0, PUBS MCHC 33.3 01/28/2017 9:49:32 AM: Discussed with Dr. Navarrete. 01/28/2017 12:31:46 PM: Results discussed with patient and his . Discussed with Dr. Dimas's nurse, Dr. Dimas is away, she will discuss with one of the covering vascular doctors and call back if they believe any further work up is necessary regarding the foot pain and numbness. Results of labs and imaging discussed with patient and his . When supplemental oxygen removed, patient became more dyspneic and oxygen saturation dropped to 90%. Dr. Navarrete discussed with Dr. Isael Pagan for admission. ([place],FLASH) Diagnostic Imaging: Viewed by Me: Radiology Read, CT Scan, Ultrasound. Discussed w/RAD: Radiology Read, CT Scan, Ultrasound. Radiology Impression: PATIENT: CAITY BELL PRESENT AGE: 76 PATIENT ACCOUNT NO: [id number] : 38 LOCATION: [facility] ORDERING PHYSICIAN: FLASH LYONS SERVICE DATE: 01/28/17 EXAM TYPE: CAT - CTA CHEST-PULMONARY EMBOLISM EXAMINATION: CT ANGIOGRAM OF THE CHEST WITH AND WITHOUT CONTRAST (CT PULMONARY ANGIOGRAM FOR PE) CLINICAL INFORMATION: Dyspnea, tachycardia, recent surgery, elevated D-dimer. Evaluate for pulmonary embolism. COMPARISON: None. TECHNIQUE: Prior to contrast administration, noncontrast localization images were obtained. Subsequently, multidetector volumetric imaging was performed from the thoracic inlet to below the diaphragms following the administration of 95 mL Optiray 320 intravenous contrast. No contrast reaction reported. Sagittal, coronal, and MIP oblique sagittal reformatted images were obtained on the CT workstation, uploaded to PACS, and reviewed. Total exam dose-length product 436.63 mGy-cm. FINDINGS: QUALITY OF STUDY/ CONTRAST BOLUS: Satisfactory. PULMONARY ARTERIES: There is probable artifact involving a right upper lobe subsegmental branch. Otherwise, no emboli are identified in the central or segmental pulmonary arteries. THORACIC AORTA: No aneurysm or dissection. LUNG: Extensive centrilobular emphysematous changes are again identified, predominantly in the upper lobes. There is dependent atelectasis in both lungs, most prominent at the bases. No definite focal mass lesions are identified. PLEURA: Moderate bilateral pleural effusions are again noted. MEDIASTINUM: Stents of thoracic aortic and coronary artery calcifications are again noted. There is no adenopathy. Scattered subcentimeter nodes are again noted. No evidence of septal bowing or right heart strain. CHEST WALL/AXILLA: No axillary or internal mammary lymphadenopathy. OSSEOUS STRUCTURES: There is stable [id number] multilevel degenerative disc disease. UPPER ABDOMEN: Unremarkable. No reflux of contrast into the hepatic veins to suggest elevated right heart pressures. IMPRESSION: 1. No definite pulmonary emboli. 2. Extensive centrilobular emphysema in the upper lobes again noted. 3. Dependent atelectasis in both lungs and persistent moderate bilateral pleural effusions. VTE: Negative. DICTATED BY: ROSALVA ROMERO MD DATE/TIME DICTATED:01/28/171100 ELECTRIC ARC FURNACE OPERATOR:VANESSA DATE/TIME TRANSCRIBED:01/28/171100 CONFIDENTIAL, DO NOT COPY WITHOUT APPROPRIATE AUTHORIZATION. <Electronically signed in Other Vendor System> SIGNED BY: ROSALVA ROMERO MD 01/28/17 1210 Initial ED EKG: sinus tachycardia 108 bpm, RBBB, LPFB, ST depression V3 not present on previous ekg Prior EKG: changed Rhythm Strip: sinus tachycardia (FLASH HAMMOND) Departure Departure Time of Disposition: 1249 Disposition: STILL A PATIENT Condition: Stable Clinical Impression Primary Impression: CHF exacerbation Qualifiers: Congestive heart failure type: unspecified congestive heart failure type Qualified Code: I50.9 - Heart failure, unspecified Referrals: AYDE HUGHES MD (PCP/Family) Departure Forms: Customer Survey General Discharge Information (FLASH HAMMOND) Admission Note Spoke With: ISAEL PAGAN MD Observation Note Spoke With: ISAEL PAGAN MD Physician Advisor Notified: PETRA DEE,EILEEN Pino Place Patient In: Non-ED OBS Care Area Rationale for Observation: My rational for observation is as follows [The patient needs to be placed into observation for oxygen therapy, IV diuresis, cardiology consultation]. I saw and personally evaluated the patient. PA/PUBLIC HEALTH PHYSICIAN Co-Sign Statement Statement: ED Attending supervision documentation- [X] I saw and evaluated the patient. I have also reviewed all the pertinent lab results and diagnostic results. I agree with the findings and the plan of care as documented in the PA's/PUBLIC HEALTH PHYSICIAN's documentation. [] I have reviewed the ED Record and agree with the PA's/PUBLIC HEALTH PHYSICIAN's documentation. [] Additions or exceptions (if any) to the PAs/PUBLIC HEALTH PHYSICIAN's note and plan are summarized below: [] (CHERRI NAVARRETE DO) Critical Care Note Critical Care Note Critical Care Time: non-applicable (FLASH HAMMOND) [] Additions or exceptions (if any) to the PAs/PUBLIC HEALTH PHYSICIAN's note and plan are summarized below: [] (CHERRI NAVARRETE DO) Critical Care Note Critical Care Note Critical Care Time: non-applicable (FLASH HAMMOND)
[2017-01-28] MEDS ORDERED: OXYCODONE HCL5 M1 PO (09:06)
[2017-01-28 09:14] LABS: ABSOLUTE BASOPHIL COUNT 0 /CUMM (0.0-0.2); ABSOLUTE EOSINOPHIL COUNT 0.1 /CUMM (0.0-0.7); ABSOLUTE GRANULOCYTE CT 8.1 /CUMM (1.4-6.5); ABSOLUTE LYMPH COUNT 0.7 /CUMM (1.2-3.4); ABSOLUTE MONOCYTE COUNT 0.8 /CUMM (0.10-0.60); BASOPHIL % 0.2 % (0.0-2.0); EOSINOPHIL % 1.5 % (0-5); HEMATOCRIT 35.9 % (42-52); MEAN CORPUSCULAR HGB 29.4 PG (27.0-31.0); MEAN CORPUSCULAR HGB CONC 33.3 G/DL (33.0-37.0); MEAN CORPUSCULAR VOLUME 88.3 FL (80.0-94.0); MEAN PLATELET VOLUME 8.4 FL (7.4-10.4); PLATELET COUNT 502 /CUMM (130-400); RBC DISTRIBUTION WIDTH 14.8 % (11.5-14.5); RED BLOOD CELL CT 4.07 /CUMM (4.70-6.10); WHITE BLOOD CELL COUNT 9.7 /CUMM (4.8-10.8)
--- NOTE | 2017-01-28 09:23 | NUR ---
ELOY GIBBONS AT BEDSIDE FOR EVAL.
--- NOTE | 2017-01-28 09:43 | NUR ---
XRAY AT BEDSIDE AT THIS TIME.
--- NOTE | 2017-01-28 10:16 | RADIOLOGY REPORT ---
EXAMINATION: XR PORTABLE CHEST CLINICAL INFORMATION: Dyspnea. COMPARISON: Portable chest 01/03/2017. TECHNIQUE: Portable AP view of the chest was obtained. FINDINGS: The borderline enlarged cardiac silhouette is stable in appearance. There is stable central vascular prominence. There are improved ill-defined opacities at both lung bases which may represent atelectasis or edema. There are probable small bilateral pleural effusions, improved. IMPRESSION: Stable central vascular prominence. Improved bibasilar opacities and small bilateral effusions.
--- NOTE | 2017-01-28 10:21 | ULTRASOUND REPORT ---
EXAMINATION: RIGHT LOWER EXTREMITY VENOUS ULTRASOUND CLINICAL INFORMATION: Postop right leg pain and swelling COMPARISON: None. TECHNIQUE: Doppler spectral analysis and color flow Doppler imaging was performed of the right lower extremity. Compression and augmentation maneuvers were performed. FINDINGS: The right common femoral, femoral, popliteal and calf veins were well-identified and normal. They demonstrate normal compressibility and color fill-in. IMPRESSION: No evidence for right lower extremity deep vein thrombosis.
--- NOTE | 2017-01-28 10:23 | NUR ---
PT C/O PAIN 04/06 TO R LEG AT THIS TIME. MEDICATED PER EMAR AT THIS TIME.
--- NOTE | 2017-01-28 10:32 | NUR ---
PT TO CT SCAN VIA STRETCHER AT THIS TIME
--- NOTE | 2017-01-28 10:59 | NUR ---
PT BACK FROM CT SCAN AT THIS TIME.
--- NOTE | 2017-01-28 11:11 | NUR ---
PT RESTING ON STRETCHER, AWARE WAITING ON CT SCAN RESUTLS AT THIS TIME. OFFES NO COMPLAINTS, STATES BREATHING FEELS "BETTER" SATS REMIAN 95-98% ON 2L NC AT THIS TIME. WILL CTM
--- NOTE | 2017-01-28 11:52 | NUR ---
PT AWARE STILL WAITING ON CT SCAN RESULTS AT THIS TIME.
--- NOTE | 2017-01-28 12:06 | NUR ---
PT PROVIDED WITH WATER, PER PA IT WAS OK. PT AWARE RADIOLOGIST WAS CALLED TO SEE WHERE RESULTS OF CT SCAN WERE AND PER RADIOLOGIST THEY SHOULD BE BACK SOON PER PA.
--- NOTE | 2017-01-28 12:10 | CT SCAN REPORT ---
EXAMINATION: CT ANGIOGRAM OF THE CHEST WITH AND WITHOUT CONTRAST (CT PULMONARY ANGIOGRAM FOR PE) CLINICAL INFORMATION: Dyspnea, tachycardia, recent surgery, elevated D-dimer. Evaluate for pulmonary embolism. COMPARISON: None. TECHNIQUE: Prior to contrast administration, noncontrast localization images were obtained. Subsequently, multidetector volumetric imaging was performed from the thoracic inlet to below the diaphragms following the administration of 95 mL Optiray 320 intravenous contrast. No contrast reaction reported. Sagittal, coronal, and MIP oblique sagittal reformatted images were obtained on the CT workstation, uploaded to PACS, and reviewed. Total exam dose-length product 436.63 mGy-cm. FINDINGS: QUALITY OF STUDY/CONTRAST BOLUS: Satisfactory. PULMONARY ARTERIES: There is probable artifact involving a right upper lobe subsegmental branch. Otherwise, no emboli are identified in the central or segmental pulmonary arteries. THORACIC AORTA: No aneurysm or dissection. LUNG: Extensive centrilobular emphysematous changes are again identified, predominantly in the upper lobes. There is dependent atelectasis in both lungs, most prominent at the bases. No definite focal mass lesions are identified. PLEURA: Moderate bilateral pleural effusions are again noted. MEDIASTINUM: Stents of thoracic aortic and coronary artery calcifications are again noted. There is no adenopathy. Scattered subcentimeter nodes are again noted. No evidence of septal bowing or right heart strain. CHEST WALL/AXILLA: No axillary or internal mammary lymphadenopathy. OSSEOUS STRUCTURES: There is stable dxry-[id number] multilevel degenerative disc disease. UPPER ABDOMEN: Unremarkable. No reflux of contrast into the hepatic veins to suggest elevated right heart pressures. IMPRESSION: 1. No definite pulmonary emboli. 2. Extensive centrilobular emphysema in the upper lobes again noted. 3. Dependent atelectasis in both lungs and persistent moderate bilateral pleural effusions. VTE: Negative.
--- NOTE | 2017-01-28 12:13 | NUR ---
ELOY BETHEA IN TO REVIEW POC. Informed waiting has been performed.
--- NOTE | 2017-01-28 12:20 | NUR ---
PTS OXYGEN TURNED OFF BY PA AT THIS TIME.
--- NOTE | 2017-01-28 12:36 | NUR ---
RA SATS REMAINS 90%-95% AT THIS TIME. PT SLEEPING ON STRETCHER. REG RESP RATE NOTED. WILL CTM
--- NOTE | 2017-01-28 12:46 | NUR ---
PA AT BEDSIDE. PT PLACED BACK ON 2L NC AT THIS TIME BY PA.
--- NOTE | 2017-01-28 12:55 | NUR ---
PT MEDICATED PER EMAR AT THIS TIME.
--- NOTE | 2017-01-28 13:25 | NUR ---
PT URINATED IN URINAL AT THIS TIME. OUTPUT 300CC CLEAR YELLOW URINE. PT ASKING FOR LIGHTS TO BE DIMMED AND DOOR TO BE CRACKED SO HE CAN REST. CALL BERMAN IN [place]ACH. PT AWARE OF ADMISSION PLAN AND IN AGREEMENT.
--- NOTE | 2017-01-28 13:48 | History & Physical ---
See Addendum KRISTIN DEE,MAURICIO 01/28/17 1329: General Information and HPI MD Statement: I have seen and personally examined CAITY BELL and documented this H&P. The patient is a 76 year old M who presented with a patient stated chief complaint of []. Source of Information: patient, old records Exam Limitations: no limitations History of Present Illness: Patient is a 76-year-old male with significant past medical history of hypertension, hyperlipidemia, CAD s/p CABG x4 (20yrs), s/p cardiac catheterization, ischemic cardiomyopathy, LVEF 40-45%, bilateral carotid endarterectomy ( LT 1999, RT 2001), bladder cancer s/p intravesical treatment, recurrent UTI, type 2 diabetes, peripheral vascular disease s/p balloon [facility] leg [facility], recent history of septic shock/ MODS secondary to staph aureus (needed mechanical ventilation, treated with cefazolin /vancomycin stopped at 01/17/2017, GEORGI negative for IE) , presented with chief complaints of shortness of breath. Patient was relatively alright a night before. When he started having sudden onset of shortness of breath, so he was BIBA by EMS to [facility]. He had angiography of the left leg 3 weeks ago at [facility]. It was done through right groin. It was followed by angioplasty. During rehabilitation, he started having pain in the right groin which was radiating to the right foot. He was then evaluated by the vascular surgery(Dr Sullivan) and they found he has aneurysmal at the site of catheter insertion.They repaired it a week ago. Although his pain, remains the same. He took Percocet for the pain which helped him a little bit. Pain is mainly located at the back of the leg and medial side of right foot. It is constant and burning in nature. He has history of bladder cancer. He is following Dr. Fajardo. He has his last treatment 3 months ago. He denies any dysuria, hematuria. His is recently exposed to flu and took prophylaxis for it. Personal history - quit smoking 30 years ago Allergies/Medications Allergies: Coded Allergies: No Known Allergies (01/28/17) Home Med list Aspirin (Ecotrin*) 81 MG TABLET.DR 1 TAB PO DAILY HEART (Reported) Atorvastatin Calcium (Lipitor) 80 MG TABLET 0.5 TAB PO DAILY CHOLESTEROL ( Reported) Carvedilol 12.5 MG TABLET 0.5 TAB PO BID HEART/BP (Reported) Clopidogrel Bisulfate (Plavix) 75 MG TABLET 1 TAB PO DAILY BLOOD THINNER ( Reported) Ezetimibe (Zetia) 10 MG TABLET 1 TAB PO DAILY CHOLESTEROL (Reported) Finasteride 5 MG TABLET 1 TAB PO DAILY PROSTATE (Reported) Furosemide (Lasix) 40 MG TABLET 40 MG PO 7:30 AM, & 4:30 PM DIURETIC Gabapentin (Neurontin) 100 MG CAPSULE 1 CAP PO TID pain Isosorbide Mononitrate (Isosorbide Mononitrate ER) 60 MG TAB.ER.24H 0.5 TAB PO QAM CHEST/ANGINA (Reported) Lactobacillus Acidophilus (Acidophilus) 1 EACH CAPSULE 1 CAP PO BID GI ( Reported) Magnesium Oxide 400 MG TABLET 400 MG PO BID sUPPLEMENT Metformin HCl 500 MG TABLET 1 TAB PO BID DM (Reported) Nitroglycerin 400 MCG/SPRAY SPRAY 1 SPRAY SL 4XDAILY PRN CHEST/JAW DISCOMFORT (Reported) Omeprazole 20 MG TABLET.DR 1 TAB PO DAILY AC GI (Reported) Oxycodone HCl/Acetaminophen (Percocet 5-325 MG Tablet) 5 MG-325 MG TABLET 1 TAB PO Q4 HRS NEEDED PRN PAIN SCALE 4-6 (MODERATE) Polyethylene Glycol 3350 (Miralax) 17 GRAM/DOSE POWDER 17 GM PO DAILY PRN CONSTIPATION Potassium Chloride (Klor-Con) 20 MEQ PACKET 1 PAC PO DAILY SUPPLEMENT ( Reported) Ramelteon (Rozerem) 8 MG TABLET 8 MG PO QPM PRN SLEEP Ranolazine (Ranexa) 500 MG TAB.ER.12H 1 TAB PO BID ANGINA/CHEST PAIN ( Reported) Tamsulosin HCl (Flomax) 0.4 MG CAP.ER.24H 1 CAP PO DAILY PROSTATE (Reported) Past History Travel History Traveled to [place] past 21 day No Medical History EENT: oral HSV Cardiovascular: CAD, hypertension, hyperlipidemia, PVD Endocrine: diabetes Cancer(s): bladder History of MRSA: No History of VRE: No History of CDIFF: No Surgical History Surgical History: CABG, Balloon Angio of LLE. Past Family/Social History Psychosocial History Who Do You Live With? spouse Services at Home: None Primary Language: Ghanaian ETOH Use: denies use Illicit Drug Use: denies illicit drug use Functional Ability ADLs Independent: dressing, eating, toileting, bathing. Review of Systems Review of Systems Constitutional: Reports: weakness. EENTM: Denies: no symptoms. Cardiovascular: Reports: edema, orthopena. Denies: chest pain, peripheral edema. Respiratory: Reports: cough, orthopnea, short of breath. Denies: hemoptysis, sputum production, stridor, wheezing. GI: Denies: abdominal pain, bloating, constipation. Genitourinary: Denies: discharge, dysuria, frequency, hematuria. Musculoskeletal: Denies: back pain, gout, joint pain, joint swelling, muscle pain, muscle stiffness. Neurological/Psychological: Denies: anxiety, confusion. Comments He is complaining of pain in the right foot Exam & Diagnostic Data Last 24 Hrs of Vital Signs/I&O Vital Signs Date Time Temp Pulse Resp B/P Pulse O2 O2 Flow FiO2 Ox Delivery Rate 01/28 1842 67.9 68 20 148/42 01/28 1838 97.6 66 24 148/62 01/28 1726 98.0 88 20 142/80 98 Nasal 2.0L Cannula 01/28 1600 Nasal 2.0L Cannula 01/28 1505 98.3 73 18 170/83 96 Nasal 2.0L Cannula 01/28 1238 98.8 01/28 1225 108 20 160/77 94 Room Air 01/28 1007 97.5 101 20 149/86 98 Nasal 2.0L Cannula 01/28 0903 98 Nasal 2.0L Cannula 01/28 0903 98 Nasal 2.0L Cannula 01/28 0854 96.6 111 20 174/91 95 Room Air Intake & Output 01/28 1600 01/28 0800 01/28 0000 Intake Total Output Total 150 Balance -150 Output, Urine 150 Patient 65.771 kg Weight Physical Exam General Appearance Alert, Oriented X3, Cooperative, Mild Distress Skin there is a healing, stitch pierce in the right groin. Sulema can be seen over there.. The stitches are healing. There is no signs of infection and abscess. Localized skin is healthy,with mild tenderness. HEENT Atraumatic, PERRLA, EOMI Neck Supple, No JVD Cardiovascular Normal S1, Normal S2, crecendo and decresendo murmur at aortic area radiating to carotids Lungs crackles in middle and lower part of the chest Abdomen Soft, No Tenderness Neurological Normal Speech, pain and burning sensation on right medial part of the foot Extremities No Clubbing, No Cyanosis, No Edema, Normal Pulses Vascular Normal Pulses, Pulses Symmetrical Last 24 Hrs of Labs/Evens: Laboratory Tests 01/28/17 1705: Troponin I 0.12 *H 01/28/17 0907: Anion Gap 9, Estimated GFR > 60, BUN/Creatinine Ratio 28.3 H, Glucose 198 H, Calcium 9.4, Total Bilirubin 0.7, AST 11 L, ALT 27, Alkaline Phosphatase 93, Troponin I 0.10, Anh-[id number]-[id number] Pept 46288 H, Total Protein 6.8, Albumin 3.3 L, Globulin 3.5, Albumin/Globulin Ratio 0.9 L, D-Dimer 395 H, CBC w Diff NO MAN DIFF REQ, RBC 4.07 L, MCV 88.3, MCH 29.4, RDW 14.8 H, MPV 8.4, Gran % 83.0 H, Lymphocytes % 7.0 L, Monocytes % 8.3, Eosinophils % 1.5, Basophils % 0.2, Absolute Granulocytes 8.1 H, Absolute Lymphocytes 0.7 L, Absolute Monocytes 0.8 H, Absolute Eosinophils 0.1, Absolute Basophils 0, PUBS MCHC 33.3 Diagnostic Data EKG Results Sinus tachycardia, heart rate 108, RBBB, left posterior fascicular block, ST segment depression in V3 CXR Results stable central vascular prominence, improved bibasilar opacities and small bilateral pleural effusion Other Results Venous Doppler study of right leg -no evidence of DVT in right lower extremity CTA chest -no evidence of PE, extensive centrilobular emphysema, and dependent atelectasis of both lower lung, persistent moderate bilateral pleural effusion Assessment/Plan Assessment: Patient is a 76-year-old male with significant past medical history of hypertension, hyperlipidemia, CAD s/p CABG (20yrs), s/p cardiac catheterization, ischemic cardiomyopathy, LVEF 40-45%, bladder cancer s/p intravesical treatment, recurrent UTI, type 2 diabetes, peripheral vascular disease s/p balloon [place] of [place] leg [place] [facility] on [place], recent history of septic shock/ MODS secondary to staph aureus (treated with cefazolin/vancomycin stopped at 2016) , presented with chief complaints of shortness of breath. Vital signs at the time of admission -temperature 96.6, pulse 111, respiratory rate 20, blood pressure 170/91, SPO2 95% on room air Pertinent Labs -hemoglobin-12.0, Glu -168, proBNP -00598, creatinine-0.6, d- dimer-395(less than before), EKG -sinus tachycardia, HR -108, RBBB, LPFB, ST depression in V3 not present in previos Chest x-ray -stable central vascular prominence, improved bibasilar opacities and small bilateral pleural effusion Venous Doppler study of right leg -no evidence of DVT in right lower extremity CTA chest -no evidence of PE, extensive centrilobular emphysema, and dependent atelectasis of both lower lung, persistent moderate bilateral pleural effusion Echocardiogram (12/27/2016) inferior wall is hypokinetic, basilar posterior wall is akinetic, [id number]%, stage 2 diastolic dysfunction,Mild LA dilatation,Mild mitral annular calcification,Diffuse thickening (sclerosis) of the aortic valve GEORGI -12/25/2016 No evidence of any vegetation Plan - Acute on chronic CHF, CAD - * Chest x-ray shows bilateral small pleural effusion * CTA showed no evidence of PE with moderate bilateral pleural effusion * proBNP -29836 * We will observe the patient in telemetry * We will do serial troponins and EKG to rule out acute coronary syndrome * Oxygen inhalation to keep SPO2 more than 92% * Keep head end of the bed elevated * Watch for breathing * We will start him on Inj lasix 40 mg IV BID * Strict intake output charting * Daily weight measurement * We'll continue aspirin, Plavix, carvedilol, Lipitor, ranolazine Peripheral vascular disease * Discussed with the Dr Akbar over the phone * He advised for arterial Doppler. * If Arterial Doppler is normal salazar no any intervention is required * We'll follow his recommendation * We will get records from [facility]. * We will give pain medication according to the pain score Type 2 diabetes mellitus * Blood Sugar monitoring TID/HS * NovoLog according to sliding scale Bladder cancer undergoing treatment * We will advise him to follow-up with Dr. Fajardo as an outpatient for further management. Diet -heart healthy diet with fluid restriction DVT prophylaxis -Plavix CODE STATUS-full code As Ranked By This Provider Problem List: 1. Femoral artery pseudo-aneurysm, right 2. Acute on chronic diastolic CHF (congestive heart failure) 3. Bladder cancer 4. Right foot pain 5. Peripheral vascular disease Core Measures/Miscellaneous Acute Coronary Syndrome ACS Diagnosis: No Cerebrovascular Accident CVA/TIA Diagnosis: No Congestive Heart Failure CHF Diagnosis: Yes Date of most recent Echo: 12/27/16 Last Known EF %: 40 ORALIA/ARB for EF <40%: No Venous Thromboembolism VTE Risk Factors: Age > 40, CHF or Resp failure, Immobility, paresis, Surgery No Mech VTE prophylaxis d/t: No contraindications, Peripheral vascular Dx No VTE Pharm Prophylaxis d/t: No contraindications VTE Diagnosis: No VTE Type: NONE VTE Confirmed by (Test): UNILATERAL VENOUS DOPPLER Severe Sepsis Severe Sepsis Present: No BC x2: No Lactic Acid x2: No IV ABX Broad Spectrum: No Septic Shock Septic Shock Present: No Miscellaneous Documentation Attending Case Discussed With: MARY KATE DEE,ISAEL Ellis Primary Care Physician: AYDE HUGHES MD Patient sees these Specialists Urologist Vascular surgery Level of Patient Care: Telemetry LI TORRES 01/28/17 1744: Resident Review Statement Resident Statement: examined this patient, discussed with international account executive, agreed with international account executive, reviewed EMR data (avail), reviewed images Other Findings: Mr. 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 He also complained of right groin/leg pain, worse in the foot for the last week. Please note that he was treated at [facility] for staph aureus septicemia complicated by intubation and mechanical ventilation and NSTEMI - a transesophageal echocardiogram ruled out any infective endocarditis, and the patient was treated with IV cefazolin. Vitals on admission temperature, 96.6, heart rate 111, respiratory rate 20, blood pressure 174/91 (came down to 160/77), saturating 94% on 2 L of oxygen via nasal cannula. Physical exam, HEENT exam negative. Heart S1-S2 with 3/6 systolic murmur radiating to the carotids, no rubs or gallops noted. Lungs were clear to auscultation but had decreased breath sounds in the bases. Abdominal exam benign. Groin exam positive for healing incision with sulema, tender to palpation, without any significant surrounding erythema. Left leg exam benign. Right leg exam, tender to palpation in the calf and foot, exacerbated by plantar flexion of the right foot. TP and DP pulses equal bilaterally. Sensation intact bilaterally. No significant erythema or swelling noted bilaterally. EKG on admission showed sinus tachycardia at 108 bpm. Right axis deviation at 100 degrees, VA interval of 124ms and QTc of 531. A RBBB pattern was noted in the precordial leads (unchanged from previous exam) with ST segment depression in leads V2-V4 (appeared slightly more depressed when comparred with his last EKG). First set of troponin was 0.1. Significant labs on admission H&H 12/35.9, white blood cell count 9.7, platelets 502, proBNP 15,500, d-dimer 395. CT of the lungs ruled out a pulmonary embolism but did reveal bilateral pleural effusions. Lower extremity duplex ultrasound ruled out DVT. Last echocardiogram 12/27/2016 revealed decreased left ventricular systolic function with an EF of 40-45%. Stage II diastolic dysfunction also noted. The inferior wall as well as the basilar posterior was noted to be hypokinetic. His vascular surgeon is Dr. Dimas and his bottle gauger is Dr. Salas in [place]. Problem list/assessment and plan Acute decompensated heart failure in history of recent NSTEMI * We will admit the patient to telemetry for observation and Lasix with IV diuresis. He is on 40 mg of by mouth Lasix at home twice a day, we will convert to IV Lasix twice a day. * Continue potassium supplementation * First set of troponin was negative at 0.10, we will repeat at 5, six hours later with repeat EKG. Consider cardiology consult if his trop trends up or he has EKG cahnges. Note, he was placed on IV heparin for an NSTEMI his last admission. * Continue aspirin, Plavix, Lipitor and ranolazine. * We will also continue carvedilol 6.25 mg twice a day, Right leg pain * He does have a known history of PAD/PVD complicated by a recent femoral artery aneurysm that was repaired last week - ?femoral nerve irritation/injury. Note that the patient complains that his leg pain is burning/"something" crawling in nature. * We will obtain records from [facility] * Per phone conversation with the manager zone vascular surgeon, we will get an arterial ultrasound and follow up if there is any pathology. * Note pulses were present in both feet bilaterally and were equal. * We will continue the current pain regimen however we will consider starting gabapentin/pregabalin/a TCA for neuropathic pain Diabetes * Hold metformin and we will place on a low dose NovoLog sliding scale with fingersticks 3 times a day before meals at bedtime Hypertension/tachycardia * Continue meds as dictated above and isosorbide mononitrate 30 mg daily FULL CODE Heart healthy diet lovenox for dvt ppx
--- NOTE | 2017-01-28 14:19 | NUR ---
HOUSESTAFF IN FOR EVAL
--- NOTE | 2017-01-28 15:37 | NUR ---
REPORT GIVEN TO MOOKIE. DISTRIBUTION CALLED
--- NOTE | 2017-01-28 15:41 | NUR ---
DISTRIBUTION CALLED FOR TRANSPORT.
--- NOTE | 2017-01-28 17:05 | NUR ---
ARRIVED TO FLOOR AT 14:50 PM. NO S/S DISTRESS. PLACED ON TELE. ORIENTED TO ROOM AND CALL LIGHT. NOTIFIED OF RIGHT TO READ CHART. HIGH FALL PRECAUTIONS IN PLACE. PLACED IN OBSERVATION PER DR SULLIVAN. BOTTOM RED/BLANCHING BARRIER CREAM APPLIED. WILL CONTINUE TO MONITOR.
--- NOTE | 2017-01-28 17:17 | PN- Att Addend ---
Attending MD Review Statement Attending Statement Attending MD Statement: examined this patient, discuss w/resident/PA/BAKERY DEMONSTRATOR, agreed w/resident/PA/BAKERY DEMONSTRATOR, discussed with family, reviewed EMR data (avail), discussed w/ nursing Attending Assessment/Plan: Laboratory Tests 01/28/17 0907: Anion Gap 9, Estimated GFR > 60, BUN/Creatinine Ratio 28.3 H, Glucose 198 H, Calcium 9.4, Total Bilirubin 0.7, AST 11 L, ALT 27, Alkaline Phosphatase 93, Troponin I 0.10, [id number] Pept 34249 H, Total Protein 6.8, Albumin 3.3 L, Globulin 3.5, Albumin/Globulin Ratio 0.9 L, D-Dimer 395 H, CBC w Diff NO MAN DIFF REQ, RBC 4.07 L, MCV 88.3, MCH 29.4, RDW 14.8 H, MPV 8.4, Gran % 83.0 H, Lymphocytes % 7.0 L, Monocytes % 8.3, Eosinophils % 1.5, Basophils % 0.2, Absolute Granulocytes 8.1 H, Absolute Lymphocytes 0.7 L, Absolute Monocytes 0.8 H, Absolute Eosinophils 0.1, Absolute Basophils 0, PUBS MCHC 33.3 Vital Signs Date Time Temp Pulse Resp B/P Pulse O2 O2 Flow FiO2 Ox Delivery Rate 01/28 1600 Nasal 2.0L Cannula 01/28 1505 98.3 73 18 170/83 96 Nasal 2.0L Cannula 01/28 1238 98.8 01/28 1225 108 20 160/77 94 Room Air 01/28 1007 97.5 101 20 149/86 98 Nasal 2.0L Cannula 01/28 0903 98 Nasal 2.0L Cannula 01/28 0903 98 Nasal 2.0L Cannula 01/28 0854 96.6 111 20 174/91 95 Room Air Patient seen and examined at bedside. Discussed with patient as well as patient 's Over the Phone the Care Plan. Next Patient Presented to the Year with Chief Complaint of Right Groin Pain along with Pain in the Foot Radiating up to Then Knee on the Right Side for about 1-2 Weeks and Shortness of Breath. Patient Was Recently at [facility] where He had repair of right groin aneurysm one week ago. In ER patient was found to have proBNP of 15,000 and a CTA chest was done to rule out pulmonary embolism. Patient had no pulmonary embolism but was found to have moderate pleural effusion. Patient was given IV Lasix 14 the ER and and is given a be monitored on telemetry for observation over the next 48 hours. Acute on chronic systolic and diastolic CHF exacerbation-built start him on Lasix 40 mg IV twice a day and see how he does. Right groin pain and right leg pain-we'll get vascular surgery to see the patient. We will start him on pain meds and see how he does.
[2017-01-28 17:26] VITALS: BP 142/80
[2017-01-28 23:31] VITALS: BP 140/50
[2017-01-29 08:00] VITALS: BP 130/60
[2017-01-29 08:09] LABS: ABSOLUTE BASOPHIL COUNT 0.1 /CUMM (0.0-0.2); ABSOLUTE EOSINOPHIL COUNT 0.3 /CUMM (0.0-0.7); ABSOLUTE GRANULOCYTE CT 5.8 /CUMM (1.4-6.5); ABSOLUTE LYMPH COUNT 0.9 /CUMM (1.2-3.4); ABSOLUTE MONOCYTE COUNT 0.9 /CUMM (0.10-0.60); BASOPHIL % 1.1 % (0.0-2.0); EOSINOPHIL % 4.3 % (0-5); GRANULOCYTE % 71.6 % (42.2-75.2); HEMATOCRIT 34.4 % (42-52); MEAN CORPUSCULAR HGB 28.9 PG (27.0-31.0); MEAN CORPUSCULAR HGB CONC 32.5 G/DL (33.0-37.0); MEAN CORPUSCULAR VOLUME 88.7 FL (80.0-94.0); MEAN PLATELET VOLUME 8.6 FL (7.4-10.4); PLATELET COUNT 431 /CUMM (130-400); RBC DISTRIBUTION WIDTH 15.2 % (11.5-14.5); RED BLOOD CELL CT 3.88 /CUMM (4.70-6.10); WHITE BLOOD CELL COUNT 8.1 /CUMM (4.8-10.8)
--- NOTE | 2017-01-29 08:23 | PN- Housestaff ---
Subjective Follow-up For: Acute CHF Peripheral vascular disease Pain in the right foot under evaluation Complaints: pain in the right foot Tele-Events Since Last Visit: Normal sinus rhythm, heart rate between 71-97, no any overnight events Subjective: Patient is seen and examined at the bedside. He was complaining of pain in the right foot, 01/04. He is feeling better in terms of shortness of breath. Denies for, chest pain, headache, fever, pain abdomen, hematuria Review of Systems Constitutional: Reports: weakness. Cardiovascular: Denies: chest pain, edema, orthopena, palpitations. Respiratory: Denies: cough, hemoptysis, orthopnea, short of breath. Gastrointestinal: Denies: abdominal pain, bloating, constipation, diarrhea. Genitourinary: Denies: no symptoms. Musculoskeletal: Denies: no symptoms. Skin: Denies: no symptoms. Objective Last 24 Hrs of Vital Signs/I&O Vital Signs Date Time Temp Pulse Resp B/P Pulse O2 O2 Flow FiO2 Ox Delivery Rate 01/29 1602 97.6 86 17 129/63 96 Room Air 01/29 0936 Nasal 2.0L Cannula 01/29 0927 97.6 76 20 140/58 01/29 0927 97.6 76 20 140/58 01/29 0927 97.6 76 20 140/58 01/29 0926 76 140/58 01/29 0800 94 Nasal 2.0L Cannula 01/29 0800 97.6 76 20 130/60 96 Nasal 2.0L Cannula 01/29 0000 Nasal 2.0L Cannula 01/28 2331 97.2 80 20 140/50 96 Nasal 2.0L Cannula 01/28 2123 84 Intake & Output 01/29 1600 01/29 0800 01/29 0000 Intake Total 360 260 260 Output Total 450 625 Balance -90 260 -365 Intake, IV 20 20 Intake, Oral 360 240 240 Output, Urine 450 625 Patient 63.616 kg Weight Physical Exam General Appearance: Alert, Oriented X3, Cooperative, No Acute Distress Skin: right lower quadrant of abdomen, stitch areas healthy, tenderness present, no any surrounding inflammation or cellulitis Cardiovascular: Normal S1, Normal S2, murmur present Lungs: bilaterallower lobe crackles along with decreased air entry on lateral side of the lung Abdomen: Soft, No Tenderness Neurological: Normal Speech, tenderness on palpation on medial side of the right foot Extremities: No Clubbing, No Cyanosis, No Edema Vascular: Normal Pulses, Pulses Symmetrical Current Medications: Current Medications Sig/Damon Start time Last Medication Dose Route Stop Time Status Admin Acetaminophen 650 MG Q6P PRN 01/28 1530 AC PO Aspirin Buffered 81 MG DAILY 01/28 1517 AC 01/29 PO 0927 Atorvastatin Calcium 40 MG DAILY 01/29 1000 AC 01/29 PO 0927 Carvedilol 6.25 MG BID 01/28 1516 AC 01/29 PO 0926 Clopidogrel Bisulfate 75 MG DAILY 01/29 1000 AC 01/29 PO 0927 Enoxaparin Sodium 40 MG 1600 01/28 1600 AC 01/29 SC 1634 Ezetimibe 10 MG DAILY 01/29 1000 AC 01/29 PO 0927 Finasteride 5 MG DAILY 01/29 1000 AC 01/29 PO 0928 Furosemide 40 MG 7:30 AM, & 4:30 PM 01/28 1630 AC 01/29 IV 1634 Insulin Aspart 0 TIDAC 01/28 1700 AC 01/29 SC 1239 Isosorbide 30 MG QAM 01/29 1000 AC 01/29 Mononitrate PO 0927 Lactobacillus 1 CAP BID 01/28 2200 AC 01/29 Acidophilus PO 0927 Magnesium Oxide 400 MG BID 01/28 2200 AC 01/29 PO 0927 Morphine Sulfate 2 MG Q6-PRN PRN 01/28 1530 AC 01/29 IV 1021 Omeprazole 20 MG DAILY AC 01/29 0700 AC 01/29 PO 0608 Oxycodone/ 1 TAB Q4 HRS NEEDED PRN 01/28 1830 AC 01/29 Acetaminophen PO 1529 Patient Medication 1 ED .STK-MED ONE 01/29 1338 [place] Teaching ED 01/29 1339 Polyethylene Glycol 17 GM DAILY PRN 01/28 1530 AC 01/29 PO 0929 Potassium Chloride 20 MEQ DAILY 01/29 1000 AC 01/29 PO 0926 Ramelteon 8 MG QPM PRN 01/28 2200 AC 01/28 PO 2123 Ranolazine 500 MG BID 01/28 2200 AC 01/29 PO 0927 Tamsulosin HCl 0.4 MG DAILY 01/28 1517 AC 01/29 PO 0927 Last 24 Hrs of Lab/Evens Results Last 24 Hrs of Labs/Mics: Laboratory Tests 01/29/17 0605: Anion Gap 10, Estimated GFR > 60, BUN/Creatinine Ratio 26.7 H, CBC w Diff NO MAN DIFF REQ, RBC 3.88 L, MCV 88.7, MCH 28.9, RDW 15.2 H, MPV 8.6, Gran % 71.6 , Lymphocytes % 11.4 L, Monocytes % 11.6 H, Eosinophils % 4.3, Basophils % 1.1 , Absolute Granulocytes 5.8, Absolute Lymphocytes 0.9 L, Absolute Monocytes 0.9 H, Absolute Eosinophils 0.3, Absolute Basophils 0.1, PUBS MCHC 32.5 L 01/28/172199: Troponin I Cancelled 01/28/172134: Troponin I 0.10 Assessment/Plan Assessment: Patient is a 76-year-old male with significant past medical history of hypertension, hyperlipidemia, CAD s/p CABG x4 (20yrs), s/p cardiac catheterization, ischemic cardiomyopathy, LVEF 40-45%, bilateral carotid endarterectomy ( LT 1999, RT 2001), bladder cancer s/p intravesical treatment, recurrent UTI, type 2 diabetes, peripheral vascular disease s/p balloon [facility] leg [facility] on [facility], recent history of septic shock/ MODS secondary to staph aureus (needed mechanical ventilation, treated with cefazolin /vancomycin stopped at 01/17/2017, GEORGI negative for IE) , presented with chief complaints of shortness of breath. Acute on chronic CHF, CAD - * Chest x-ray shows bilateral small pleural effusion * CTA showed no evidence of PE with moderate bilateral pleural effusion * proBNP -94010 * We will observe the patient in telemetry * We will do serial troponins were negative * Oxygen inhalation to keep SPO2 more than 94% on 2 liters of nasal cannula * Keep head end of the bed elevated * Watch for breathing * We will continue him on Inj lasix 40 mg IV BID for today and start him on tab Lasix 40 BID * Strict intake output charting * Daily weight measurement * We'll continue aspirin, Plavix, carvedilol, Lipitor, ranolazine Peripheral vascular disease * Arterial Doppler does not show any evidence of obstruction, updated Dr. Whelan. We will evaluate tomorrow and give his opinion * We'll follow his recommendation * We will get records from [facility]. * We will give pain medication according to the pain score Type 2 diabetes mellitus * Blood Sugar monitoring TID/HS * NovoLog according to sliding scale, change to medium dose sliding scale Bladder cancer undergoing treatment * We will advise him to follow-up with Dr. Fajardo as an outpatient for further management. Diet -heart healthy diet with fluid restriction DVT prophylaxis -Plavix CODE STATUS-full code Problem List: 1. Peripheral vascular disease 2. Acute on chronic diastolic CHF (congestive heart failure) 3. Bladder cancer 4. Right foot pain Pain Ratin Pain Location: Right foot Pain Goal: Remain pain free Pain Plan: [id number] Tomorrow's Labs & Rationales: BEP to follow for creatinine, as patient is on diuretics DVT/Prophylaxis: mechanical, pharmacological
--- NOTE | 2017-01-29 12:15 | ULTRASOUND REPORT ---
EXAMINATION: NONINVASIVE ASSESSMENT OF THE ARTERIES OF THE RIGHT LOWER EXTREMITY INTERPRETING VASCULAR \T\ INTERVENTIONAL RADIOLOGIST: Giorgi Montano MD CLINICAL INFORMATION: Pain right foot with suspicion of embolus. TECHNIQUE: Bilateral lower extremity duplex ultrasound was performed with velocity measurements and waveform analysis in the common femoral arteries, profunda femoris arteries, proximal mid and distal superficial femoral arteries, popliteal arteries and tibial vessels. This study was performed only at rest. COMPARISON: None FINDINGS: Velocities in cm/sec and phasicity as well as the presence of plaque are reported below Scattered areas of moderate plaque are noted. RIGHT LEG: Common femoral: 55.1 triphasic Profunda femoris: 63.3 triphasic Proximal SFA: 136 monophasic Mid SFA: 130 monophasic Distal SFA: 95.6 monophasic Popliteal: 78.6 monophasic Posterior tibial: 108 monophasic Anterior tibial: 130 monophasic Dorsalis pedis: 91, monophasic IMPRESSION: These findings are consistent with SFA/tibial disease. CT angiography could be performed for further evaluation.
--- NOTE | 2017-01-29 14:59 | PN- Att Addend ---
Attending MD Review Statement Attending Statement Attending MD Statement: examined this patient, discuss w/resident/PA/RETAIL AND RESTAURANT, agreed w/resident/PA/RETAIL AND RESTAURANT, reviewed EMR data (avail), discussed w/nursing Attending Assessment/Plan: Laboratory Tests 01/29/17 0605: Anion Gap 10, Estimated GFR > 60, BUN/Creatinine Ratio 26.7 H, CBC w Diff NO MAN DIFF REQ, RBC 3.88 L, MCV 88.7, MCH 28.9, RDW 15.2 H, MPV 8.6, Gran % 71.6 , Lymphocytes % 11.4 L, Monocytes % 11.6 H, Eosinophils % 4.3, Basophils % 1.1 , Absolute Granulocytes 5.8, Absolute Lymphocytes 0.9 L, Absolute Monocytes 0.9 H, Absolute Eosinophils 0.3, Absolute Basophils 0.1, PUBS MCHC 32.5 L 01/28/172199: Troponin I Cancelled 01/28/175: Troponin I 0.10 01/28/17 1705: Troponin I 0.12 *H Vital Signs Date Time Temp Pulse Resp B/P Pulse O2 O2 Flow FiO2 Ox Delivery Rate 01/29 0936 Nasal 2.0L Cannula 01/29 0927 97.6 76 20 140/58 01/29 0927 97.6 76 20 140/58 01/29 0927 97.6 76 20 140/58 01/29 0926 76 140/58 01/29 0800 94 Nasal 2.0L Cannula 01/29 0800 97.6 76 20 130/60 96 Nasal 2.0L Cannula 01/29 0000 Nasal 2.0L Cannula 01/28 2331 97.2 80 20 140/50 96 Nasal 2.0L Cannula 01/28 2123 84 01/28 1842 67.9 68 20 148/42 01/28 1838 97.6 66 24 148/62 01/28 1726 98.0 88 20 142/80 98 Nasal 2.0L Cannula 01/28 1600 Nasal 2.0L Cannula 01/28 1505 98.3 73 18 170/83 96 Nasal 2.0L Cannula Patient seen and examined at bedside. Discussed with patient the care plan. Patient says his pain in the right groin area and the right leg is much better controlled compared with yesterday. We will continue with current pain management. We are waiting for the arterial Doppler results to come back as well as for vascular surgery to see the patient. Acute on chronic systolic as well as diastolic CHF exacerbation-we will continue with Lasix 40 mg IV twice a day. Patient has moderate bilateral pleural effusion. I have ordered incentive spirometry due to compressive atelectasis at the lung bases. If he is doing better tomorrow morning we will switch him to oral Lasix and planned discharge. Mild troponin leak-highest troponin level was 0.12. Likely secondary to CHF exacerbation.
[2017-01-29 16:02] VITALS: BP 129/63
--- NOTE | 2017-01-29 16:55 | Discharge Summary ---
Visit Information Visit Dates Admission Date: 01/28/17 Discharge Date: 01/30/2017 Hospital Course Course Attending Physician: ZABRINA HURT MD Primary Care Physician: SAUL DEE,[place] Hospital Course: Patient is a 76-year-old male with significant past medical history of hypertension, hyperlipidemia, CAD s/p CABG x4 (20yrs), s/p cardiac catheterization, ischemic cardiomyopathy, LVEF 40-45%, bilateral carotid endarterectomy ( LT 1999, RT 2001), bladder cancer s/p intravesical treatment, recurrent UTI, type 2 diabetes, recent history of septic shock/ MODS secondary to staph aureus (needed mechanical ventilation, treated with cefazolin/ vancomycin stopped at 01/17/2017, GEORGI negative for IE), peripheral vascular disease s/p balloon angioplasty of left leg at [facility] on Nov,its complication psuedoaneurysm rapaired at [facility] a week ago, presented with chief complaints of shortness of breath so he was BIBA by EMS to [facility]. Vital signs at the time of admission -temperature 96.6, pulse 111, respiratory rate 20, blood pressure 170/91, SPO2 95% on room air Pertinent Labs -hemoglobin-12.0, Glu -168, proBNP -35221, creatinine-0.6, d- dimer-395(less than before), EKG -sinus tachycardia, HR -108, RBBB, LPFB, ST depression in V3 not present in previos Acute on chronic systolic and diastolic CHF exacerbation On further evaluation Chest x-ray showed bilateral small pleural effusion,CTA showed no evidence of PE with moderate bilateral pleural effusion and proBNP - 79451. So we observed him in telemetry. We did serial troponins and EKG which was neg (except second set -0.12). We started him on IV Lasix. He responded well to the treatment. Hospital course was uneventful. We discharged him on tab Lasix 40mg BID. We advised him to follow-up with dry ice maker within a week of discharge for further management. We continued all home medication. Peripheral vascular disease,s/p repaired psuedoaneurysm at groin and right foot pain - We did both venouse and arterial doppler of right leg which showed no evidence of DVT, though arterial doppler showed monophasic flow in SFA and tibial artery. Discussed with Dr. Whelan, and he advised that there is no any urgent intervention is required. We added Neurontin (100mg TID) for neuropathic pain and percocet as needed.We discharged him with advise to follow up with his vascular surgeon as an out patient. He also needs to have removal of stiches on 02/04/2017. Allergies: Coded Allergies: No Known Allergies (01/28/17) Disposition Summary Disposition Principal Diagnosis: Acute on chronic systolic and diastolic CHF exacerbation PVD Additional Diagnosis: Hypertension, Hyperlipidemia, CAD s/p CABG x4 (20yrs), s/p cardiac catheterization, Ischemic cardiomyopathy, LVEF 40-45%, Bilateral carotid endarterectomy ( LT 1999, RT 2001), Bladder cancer s/p intravesical treatment, Recurrent UTI, Type 2 diabetes, Peripheral vascular disease s/p balloon angioplasty of left leg at [facility] on [facility], Recent history of septic shock/ MODS secondary to staph aureus (needed mechanical ventilation, treated with cefazolin/vancomycin stopped at 01/17/2017, GEORGI negative for IE) , Discharge Disposition: home health services Discharge Instructions General Discharge Information Code Status: Full Code Patient's Diet: Diabetic heart healthy with fluid restriction Patient's Activity: as tolerating Follow-Up Instructions/Appts: Please follow-up with your vascular surgeon within a week of discharge Please follow-up with your PCP within a week of discharge Please take the medication as advised Medications at Discharge Discharge Medications: Stop taking the following medications: Oxycodone HCl (Oxycodone HCl) 5 MG TABLET ORAL EVERY 4 HOURS NEEDED as needed for PAIN Qty = 60 Continue taking these medications: Atorvastatin Calcium (Lipitor) 80 MG TABLET 0.5 Tablet ORAL DAILY Comments: Last Taken:01/30/17 Time:10:17A.M Carvedilol (Carvedilol) 12.5 MG TABLET 0.5 Tablet ORAL TWICE DAILY Comments: Last Taken:01/30/17 Time:10:17A.M Clopidogrel Bisulfate (Plavix) 75 MG TABLET 1 Tablet ORAL DAILY Comments: Last Taken: 01/30/17 Time: 10:17A.M Finasteride (Finasteride) 5 MG TABLET 1 Tablet ORAL DAILY Comments: Last Taken: 01/06/17 Time: 9:30 AM Isosorbide Mononitrate (Isosorbide Mononitrate ER) 60 MG TAB.ER.24H 0.5 Tablet ORAL Every Morning Comments: Last Taken:01/30/17 Time: 10:17A.M Metformin HCl (Metformin HCl) 500 MG TABLET 1 Tablet ORAL TWICE DAILY Comments: NOT GIVEN INHOSPITAL Nitroglycerin (Nitroglycerin) 400 MCG/SPRAY SPRAY 1 [place] SUBLINGUAL 4XDAILY as needed for CHEST/JAW DISCOMFORT Comments: NOT GIVEN IN HOSPITAL Omeprazole (Omeprazole) 20 MG TABLET.DR 1 Tablet ORAL DAILY BEFORE BREAKFAST Comments: Last Taken: 01/30/17 Time: 6:48A.M Ranolazine (Ranexa) 500 MG TAB.ER.12H 1 Tablet ORAL TWICE DAILY Comments: Last Taken: 01/30/17 Time: 10:17A.M Tamsulosin HCl (Flomax) 0.4 MG CAP.ER.24H 1 Capsule ORAL DAILY Comments: Last Taken: 01/30/17 Time: 10:17A.M Aspirin (Ecotrin*) 81 MG TABLET.DR 1 Tablet ORAL DAILY Comments: Last Taken: 01/30/17 Time: 10:17A.M Ramelteon (Rozerem) 8 MG TABLET 8 Milligram ORAL Every night as needed for SLEEP Qty = 1 Comments: Last Taken:01/29/17 Time:9:34P.M Furosemide (Lasix) 40 MG TABLET 40 Milligram ORAL 7:30AM & 4:30PM Qty = 1 Comments: Last Taken:01/30/17 Time:8:15A.M Magnesium Oxide (Magnesium Oxide) 400 MG TABLET 400 Milligram ORAL TWICE DAILY Qty = 1 Comments: Last Taken:01/30/17 Time:10:17A.M Polyethylene Glycol 3350 (Miralax) 17 GRAM/DOSE POWDER 17 Gram ORAL DAILY as needed for CONSTIPATION Qty = 1 Comments: Last Taken:01/29/17 Time:9:29A.M Ezetimibe (Zetia) 10 MG TABLET 1 Tablet ORAL DAILY Qty = 90 Comments: Last Taken:01/30/17 Time:10:17A.M Lactobacillus Acidophilus (Acidophilus) 1 EACH CAPSULE 1 Capsule ORAL TWICE DAILY Comments: Last Taken:01/30/17 Time:10:17A.M Potassium Chloride (Klor-Con) 20 MEQ PACKET 1 Packet ORAL DAILY Comments: Last Taken:01/30/17 Time:10:17A.M Start taking the following new medications: Oxycodone HCl/Acetaminophen (Percocet 5-325 MG Tablet) 5 MG-325 MG TABLET 1 Tablet ORAL EVERY 4 HOURS NEEDED as needed for PAIN SCALE 4-6 (MODERATE ) Qty = 60 No Refills Comments: Last Taken:01/30/17 Time:11:36A.M Gabapentin (Neurontin) 100 MG CAPSULE 1 Capsule ORAL THREE TIMES DAILY Qty = 90 No Refills Comments: NOT GIVEN IN HOSPITAL Copies To: PETR DEE,CLAY More; SAUL DEE,AYDE; NINO DEE,MALACHI Attending MD Review Statement Documenting Attending: BLU DEE,ZABRINA Gilbert Other Findings: Please see my attending note for more details. Agree with the above discharge plan.
[2017-01-29 22:56] VITALS: BP 122/60
--- NOTE | 2017-01-30 08:14 | PN- Housestaff ---
Subjective Follow-up For: acute on chronic CHF peripheral vascular disease Complaints: no complaints Tele-Events Since Last Visit: NSR,HR between 67 -103, no any overnight events Subjective: Patient is seen and examined at the bedside. He was much comfortable than before. He denies of any shortness of breath. His pain in the right foot has been decreased to 3/10. He is off oxygen and saturating 92%. Review of Systems Constitutional: Denies: fever, malaise, weakness. Cardiovascular: Denies: chest pain, edema, orthopena, palpitations, peripheral edema. Respiratory: Denies: cough, hemoptysis, orthopnea, short of breath, sputum production, stridor. Gastrointestinal: Denies: no symptoms. Genitourinary: Denies: no symptoms. Musculoskeletal: Denies: back pain, gout, joint pain, joint swelling, muscle pain, muscle stiffness. Skin: Denies: no symptoms. Neurological/Psychological: Denies: no symptoms. Objective Last 24 Hrs of Vital Signs/I&O Vital Signs Date Time Temp Pulse Resp B/P Pulse O2 O2 Flow FiO2 Ox Delivery Rate 01/30 1018 97.9 80 16 130/68 04/ 1017 97.9 80 16 130/68 04/05 1017 97.9 80 16 130/68 04/05 1017 97.9 80 16 130/68 04/05 0828 97.9 80 16 130/68 92 Room Air / 0000 96 Nasal 2.0L Cannula 01/29 2256 98.6 83 18 122/60 96 Nasal 2.0L Cannula 01/29 2134 83 122/60 01/29 2134 83 122/60 01/29 1602 97.6 86 17 129/63 96 Room Air Intake & Output 01/30 1600 01/30 0800 04 0000 Intake Total 120 480 Output Total 150 450 Balance -30 30 Intake, Oral 120 480 Number 1 Bowel Movements Output, Urine 150 450 Patient 63.503 kg Weight Physical Exam General Appearance: Alert, Oriented X3, Cooperative, No Acute Distress Cardiovascular: Normal S1, Normal S2 Lungs: Normal Air Movement, mild basilar crackles Abdomen: Soft, No Tenderness Neurological: Normal Speech Extremities: No Clubbing, No Cyanosis, No Edema Vascular: Normal Pulses, Pulses Symmetrical Current Medications: Current Medications Sig/Damon Start time Last Medication Dose Route Stop Time Status Admin Acetaminophen 650 MG Q6P PRN 01/28 1530 AC PO Aspirin Buffered 81 MG DAILY 01/28 1517 AC 01/30 PO 1017 Atorvastatin Calcium 40 MG DAILY 01/29 1000 AC 01/30 PO 1017 Carvedilol 6.25 MG BID 01/28 1516 AC 01/30 PO 1017 Clopidogrel Bisulfate 75 MG DAILY 01/29 1000 AC 01/30 PO 1017 Enoxaparin Sodium 40 MG 1600 01/28 1600 AC 01/29 SC 1634 Ezetimibe 10 MG DAILY 01/29 1000 AC 01/30 PO 1017 Finasteride 5 MG DAILY 01/29 1000 AC 01/30 PO 1017 Furosemide 40 MG 7:30 AM, & 4:30 PM 01/30 0730 AC 01/30 PO 0815 Furosemide 40 MG 7:30 AM, & 4:30 PM 01/28 1630 DC 01/29 IV 1634 Insulin Aspart 0 TIDAC 01/28 1700 AC 01/30 SC 0815 Isosorbide 30 MG QAM 01/29 1000 AC 01/30 Mononitrate PO 1017 Lactobacillus 1 CAP BID 01/28 2200 AC 01/30 Acidophilus PO 1017 Magnesium Oxide 400 MG BID 01/28 2200 AC 01/30 PO 1017 Morphine Sulfate 2 MG Q6-PRN PRN 01/28 1530 AC 01/29 IV 1925 Omeprazole 20 MG DAILY AC 01/29 0700 AC 01/30 PO 0648 Oxycodone/ 1 TAB Q4 HRS NEEDED PRN 01/28 1830 AC 01/30 Acetaminophen PO 0649 Patient Medication 1 ED .STK-MED ONE 01/29 1338 [place] Teaching ED 01/29 1339 Polyethylene Glycol 17 GM DAILY PRN 01/28 1530 AC 01/29 PO 0929 Potassium Chloride 20 MEQ DAILY 01/29 1000 AC 01/30 PO 1017 Ramelteon 8 MG QPM PRN 01/28 2200 AC 01/29 PO 2134 Ranolazine 500 MG BID 01/28 2200 AC 01/30 PO 1017 Tamsulosin HCl 0.4 MG DAILY 01/28 1517 AC 01/30 PO 1018 Last 24 Hrs of Lab/Evens Results Last 24 Hrs of Labs/Mics: Laboratory Tests 01/30/17 0615: Anion Gap 9, Estimated GFR > 60, BUN/Creatinine Ratio 24.3 Assessment/Plan Assessment: Patient is a 76-year-old male with significant past medical history of hypertension, hyperlipidemia, CAD s/p CABG x4 (20yrs), s/p cardiac catheterization, ischemic cardiomyopathy, LVEF 40-45%, bilateral carotid endarterectomy ( LT 1999, RT 2001), bladder cancer s/p intravesical treatment, recurrent UTI, type 2 diabetes, peripheral vascular disease s/p balloon angioplasty of left leg at [facility] on Nov, recent history of septic shock/ MODS secondary to staph aureus (needed mechanical ventilation, treated with cefazolin /vancomycin stopped at 01/17/2017, GEORGI negative for IE) , presented with chief complaints of shortness of breath. Plan - Discharge today after vascular surgery evaluation Acute on chronic CHF, CAD - * Chest x-ray shows bilateral small pleural effusion * CTA showed no evidence of PE with moderate bilateral pleural effusion * proBNP -25208 * serial troponins were negative * Oxygen inhalation to keep SPO2 more than 92% on room air * We will continue tab Lasix 40 BID * We'll continue aspirin, Plavix, carvedilol, Lipitor, ranolazine Peripheral vascular disease * Arterial Doppler shows monophasic circulation in superficial femoral artery, updated Dr. Whelan. He'll evaluate give his opinion. * We'll follow his recommendation * We will get records from [facility]. * We will give pain medication according to the pain score Type 2 diabetes mellitus * Blood Sugar monitoring TID/HS * NovoLog according to sliding scale, change to medium dose sliding scale Bladder cancer undergoing treatment * We will advise him to follow-up with Dr. Fajardo as an outpatient for further management. Diet -heart healthy diet with fluid restriction DVT prophylaxis -Plavix CODE STATUS-full code Problem List: 1. Peripheral vascular disease 2. Acute on chronic diastolic CHF (congestive heart failure) 3. Bladder cancer Pain Ratin Pain Location: Right foot Pain Goal: Remain pain free Pain Plan: [id number] Tomorrow's Labs & Rationales: Not required as patient is going to home DVT/Prophylaxis: mechanical, pharmacological
[2017-01-30 08:28] VITALS: BP 130/68
--- NOTE | 2017-01-30 09:21 | Patient Discharge Instructions ---
Discharge Instructions General Discharge Information You were seen/treated for: acute on chronic heart failure and pain in right foot, probably peripheral neuropathy Special Instructions: Please follow-up with your vascular surgeon within a week of discharge Please follow-up with your PCP within a week of discharge Please take the medication as advised Diet Recommended Diet: Heart Healthy Activity Full Activity/No Limits: No (as tolerated) Acute Coronary Syndrome Inclusion Criteria At DC or during hospital stay patient has or had the following: ACS DIAGNOSIS No Discharge Core Measures Meds if any: Prescribed or Continued at Discharge Meds if any: NOT Prescribed or Continued at Discharge Congestive Heart Failure Inclusion Criteria At DC or during hospital stay patient has or had the following: CHF DIAGNOSIS Yes Discharge Core Measures Meds if any: Prescribed or Continued at Discharge ORALIA/ARB for EF <40% Yes Meds if any: NOT Prescribed or Continued at Discharge Cerebrovascular accident Inclusion Criteria At DC or during hospital stay patient has or had the following: CVA/TIA Diagnosis No Discharge Core Measures Meds if any: Prescribed or Continued at Discharge Meds if any: NOT Prescribed or Continued at Discharge Venous thromboembolism Inclusion Criteria VTE Diagnosis No VTE Type NONE VTE Confirmed by (Test) NONE Discharge Core Measures - Per Current guidelines, there needs to be overlap - treatment for the first 5 days of Warfarin therapy. - If discharged on Warfarin prior to 5 days of - overlap therapy, the patient will need to be - assessed for post discharge needs including - *Post discharge parental anticoagulation - *Warfarin and/or parental anticoagulation education - *Follow up date to check INR post discharge At least 5 days overlap therapy as Inpatient No Meds if any: Prescribed or Continued at Discharge Warfarin No Note: Overlap Therapy is Warfarin and Anticoagulant Meds if any: NOT Prescribed or Continued at Discharge
[2017-01-30 10:18] VITALS: BP 130/68
--- NOTE | 2017-01-30 13:40 | Cons- Vascular Surgery ---
General Information and HPI Consulting Request Date of Consult: 01/30/17 Requested By: BLU DEE,ZABRINA Gilbert History of Present Illness: 76-year-old man with multiple medical issues and known peripheral arterial disease was recently treated at [facility] for "blockage" in his left leg. According to the notes, he underwent angioplasty of the left SFA. The angiogram was brought to the right groin. Per report, he developed a pseudoaneurysm in the right groin from the puncture site. This was treated in an open fashion and week ago at [facility]. The patient presented to the hospital with shortest of breath. Clinically, he has gotten better. Workup did not show any evidence of PE. A venous ultrasound did not show any evidence of DVT. An arterial ultrasound showed monophasic waveform in the right tibial arteries. I was asked to see the patient regarding this arterial ultrasound finding. Allergies/Medications Allergies: Coded Allergies: No Known Allergies (01/28/17) Home Med List: Aspirin (Ecotrin*) 81 MG TABLET.DR 1 TAB PO DAILY HEART (Reported) Atorvastatin Calcium (Lipitor) 80 MG TABLET 0.5 TAB PO DAILY CHOLESTEROL ( Reported) Carvedilol 12.5 MG TABLET 0.5 TAB PO BID HEART/BP (Reported) Clopidogrel Bisulfate (Plavix) 75 MG TABLET 1 TAB PO DAILY BLOOD THINNER ( Reported) Ezetimibe (Zetia) 10 MG TABLET 1 TAB PO DAILY CHOLESTEROL (Reported) Finasteride 5 MG TABLET 1 TAB PO DAILY PROSTATE (Reported) Furosemide (Lasix) 40 MG TABLET 40 MG PO 7:30 AM, & 4:30 PM DIURETIC Isosorbide Mononitrate (Isosorbide Mononitrate ER) 60 MG TAB.ER.24H 0.5 TAB PO QAM CHEST/ANGINA (Reported) Lactobacillus Acidophilus (Acidophilus) 1 EACH CAPSULE 1 CAP PO BID GI ( Reported) Magnesium Oxide 400 MG TABLET 400 MG PO BID sUPPLEMENT Metformin HCl 500 MG TABLET 1 TAB PO BID DM (Reported) Nitroglycerin 400 MCG/SPRAY SPRAY 1 SPRAY SL 4XDAILY PRN CHEST/JAW DISCOMFORT (Reported) Omeprazole 20 MG TABLET.DR 1 TAB PO DAILY AC GI (Reported) Oxycodone HCl 5 MG TABLET 1 TAB PO Q4-PRN PRN PAIN (Reported) Polyethylene Glycol 3350 (Miralax) 17 GRAM/DOSE POWDER 17 GM PO DAILY PRN CONSTIPATION Potassium Chloride (Klor-Con) 20 MEQ PACKET 1 PAC PO DAILY SUPPLEMENT ( Reported) Ramelteon (Rozerem) 8 MG TABLET 8 MG PO QPM PRN SLEEP Ranolazine (Ranexa) 500 MG TAB.ER.12H 1 TAB PO BID ANGINA/CHEST PAIN ( Reported) Tamsulosin HCl (Flomax) 0.4 MG CAP.ER.24H 1 CAP PO DAILY PROSTATE (Reported) Past History Medical History Blood Transfusion Hx: No EENT: oral HSV Cardiovascular: CAD, hypertension, hyperlipidemia, PVD Endocrine: diabetes Cancer(s): bladder Surgical History Pertinent Surgical History: CABG, Balloon Angio of LLE. Psychosocial History Who Do You Live With? spouse Services at Home: None Primary Language: Guyanese Smoking Status: Unknown If Ever Smoked ETOH Use: denies use Illicit Drug Use: denies illicit drug use Functional Ability ADLs Independent: dressing, eating, toileting, bathing. Review of Systems Review of Systems: Patient denies headache, dizziness, cough, palpitation, diarrhea or constipation Exam & Diagnostic Data Vital Signs and I&O Vital Signs Date Time Temp Pulse Resp B/P Pulse O2 O2 Flow FiO2 Ox Delivery Rate 01/30 1018 97.9 80 16 130/68 01/30 1017 97.9 80 16 130/68 04/ 1017 97.9 80 16 130/68 04/05 1017 97.9 80 16 130/68 04/ 0828 97.9 80 16 130/68 92 Room Air 01/30 0000 96 Nasal 2.0L Cannula 01/29 2256 98.6 83 18 122/60 96 Nasal 2.0L Cannula 01/29 213 83 122/60 01/29 2134 83 122/60 01/29 1602 97.6 86 17 129/63 96 Room Air Intake & Output 01/30 1600 01/30 0800 01/30 0000 01/29 1600 01/29 0800 01/29 0000 Intake Total 120 480 360 260 260 Output Total 150 450 450 625 Balance -30 30 -90 260 -365 Intake, IV 20 20 Intake, Oral 120 480 360 240 240 Number 1 Bowel Movements Output, Urine 150 450 450 625 Patient 140 lb 140 lb Weight Physical Exam: Patient is alert and oriented 3 Lungs: Clear to auscultation bilaterally Cardiac vascular: Regular rate and rhythm Abdomen: Soft, nontender nondistended Extremities: Right groin wound is intact and healing well with adriano intact. There are dopplerable pedal signals. Patient is able to move his toes and his sensation is intact. Assessment/Plan Assessment/Plan 76-year-old man with multiple medical issues and peripheral arterial disease and left femoral angioplasty via right groin access which was complicated by pseudoaneurysm formation. This was treated in an open fashion and [facility] where his angioplasty was performed. His initial complaint on this admission which was shortness of breath has improved. He has both the DP and PT signals in his right foot. Right foot is warm. There is no urgent vascular surgery intervention necessary at this time. I'll follow him as an outpatient in [place] office. Consult Acknowledgment - Thank you for your consult request. Attending MD Review Statement Attending Statement Attending MD Statement: examined this patient, discuss w/resident/PA/VICE PRESIDENT OF BRAND MANAGEMENT
[2017-01-30] MEDS ORDERED: NEURONTIN100 M1 PO (14:09)
[2017-01-30] MEDS ORDERED: PERCOCET 5-3251 EACH PO (14:10)
--- NOTE | 2017-01-30 14:30 | NUR ---
PATIENT AMBULATED IN HALLWAY ON RA. O2 SAT 97% WITH AMBULATION. NO SOB NOTED. AT REST O2 95%.
--- NOTE | 2017-01-30 14:44 | PN- Att Addend ---
Attending Addendum Attending Brief Note Laboratory Tests 01/30/17 0615: Anion Gap 9, Estimated GFR > 60, BUN/Creatinine Ratio 24.3 Vital Signs Date Time Temp Pulse Resp B/P Pulse O2 O2 Flow FiO2 Ox Delivery Rate 01/30 1018 97.9 80 16 130/68 / 1017 97.9 80 16 130/68 01/30 1017 97.9 80 16 130/68 / 1017 97.9 80 16 130/68 / 0828 97.9 80 16 130/68 92 Room Air 01/30 0000 96 Nasal 2.0L Cannula 01/29 2256 98.6 83 18 122/60 96 Nasal 2.0L Cannula 01/29 2134 83 122/60 01/29 2134 83 122/60 01/29 1602 97.6 86 17 129/63 96 Room Air Patient seen and examined at bedside. Discussed with patient and the care plan. Patient seen by vascular surgery and they reviewed the arterial Doppler. I spoke with vascular surgeon and he thinks the pain in the lower extremity is secondary to peripheral neuropathy. We will start the patient on Neurontin. Plan is to discharge him home on oral Lasix as well as when necessary pain meds along with Neurontin. Patient will follow-up with vascular surgeon after discharge.
== END 2017-01-30 16:35 ==
LOC: ENRESERVDT → ENRESERVTM → ERH 08:50 → 1NO 13:15 → ERHI 13:15 → ENPENDDIS 13:15 → 1NO 15:51
PROVIDERS: Internal Medicine Cardiovascular Disease; Physician Assistant; ADMIT Internal Medicine
DX: I50.43 Acute on chronic combined systolic (congestive) and diastolic (congestive) heart failure (principal); I73.9 Peripheral vascular disease, unspecified; I10 Essential (primary) hypertension; I25.5 Ischemic cardiomyopathy; E11.9 Type 2 diabetes mellitus without complications; Z79.84 Long term (current) use of oral hypoglycemic drugs; E78.5 Hyperlipidemia, unspecified; Z95.1 Presence of aortocoronary bypass graft; Z85.51 Personal history of malignant neoplasm of bladder; M79.89 Other specified soft tissue disorders
CPT/HCPCS: 1NP; 36415; 82436; 93005; 93010; 96374; 96375; 96376; 97110-GP; 97116-GP; 97161-GP; G0378; G8978-GP; G8979-GP; G8980-GP; J1650; J1940

== ENCOUNTER 2017-02-16 20:10 | Emergency (ER) | payer OTHER, MEDICARE ==
[~2017-02-16] VITALS: Ht 177.8 cm; Wt 64.0 kg
[~2017-02-16 20:10] MED LIST changes: +ACIDOPHILUS1 EACH PO; +KLOR-CON20 ME1 PO; +NEURONTIN100 M1 PO; +OXYCODONE HCL5 M1 PO; +PERCOCET 5-3251 EACH PO
[2017-02-16 20:14] VITALS: BP 154/75
[2017-02-16] MEDS ORDERED: GABAPENTIN400 M2 PO (20:36)
[2017-02-16] MEDS ORDERED: MELATONIN3 M4 PO (20:38)
[2017-02-16] MEDS ORDERED: TYLENOL EXTRA500 M2 PO (20:40)
--- NOTE | 2017-02-16 20:59 | ED UPPER/LOWER EXTREMITY COMPL ---
History of Present Illness General Chief Complaint: Lower Extremity Problems Stated Complaint: RIGHT LEG PAIN Source: patient Exam Limitations: no limitations Vital Signs & Intake/Output Vital Signs & Intake/Output Vital Signs Date Time Temp Pulse Resp B/P B/P Pulse O2 O2 Flow FiO2 Mean Ox Delivery Rate 02/16 2014 99.6 100 22 154/75 94 Room Air Allergies Coded Allergies: No Known Allergies (02/16/17) Reconcile Medications Acetaminophen (Tylenol Extra Strength) 500 MG TABLET 2 TAB PO PRN PAIN ( Reported) Aspirin (Ecotrin*) 81 MG TABLET.DR 1 TAB PO DAILY HEART (Reported) Atorvastatin Calcium (Lipitor) 80 MG TABLET 0.5 TAB PO DAILY CHOLESTEROL ( Reported) Carvedilol 12.5 MG TABLET 0.5 TAB PO BID HEART/BP (Reported) Clopidogrel Bisulfate (Plavix) 75 MG TABLET 1 TAB PO DAILY BLOOD THINNER ( Reported) Diazepam (Valium) 5 MG TABLET 1 TAB PO TID PRN SPASMS Ezetimibe (Zetia) 10 MG TABLET 1 TAB PO DAILY CHOLESTEROL (Reported) Finasteride 5 MG TABLET 1 TAB PO DAILY PROSTATE (Reported) Furosemide (Lasix) 40 MG TABLET 40 MG PO 7:30 AM, & 4:30 PM DIURETIC Gabapentin 400 MG CAPSULE 1 CAP PO BID NERVE PAIN (Reported) Hydromorphone HCl (Dilaudid) 2 MG TABLET 1 TAB PO Q6P PRN PAIN Isosorbide Mononitrate (Isosorbide Mononitrate ER) 60 MG TAB.ER.24H 0.5 TAB PO QAM CHEST/ANGINA (Reported) Lactobacillus Acidophilus (Acidophilus) 1 EACH CAPSULE 1 CAP PO BID GI ( Reported) Magnesium Oxide 400 MG TABLET 400 MG PO BID sUPPLEMENT Melatonin 3 MG TABLET 2 TAB PO QPM SLEEP (Reported) Metformin HCl 500 MG TABLET 1 TAB PO BID DM (Reported) Nitroglycerin 400 MCG/SPRAY SPRAY 1 SPRAY SL 4XDAILY PRN CHEST/JAW DISCOMFORT (Reported) Omeprazole 20 MG TABLET.DR 1 TAB PO DAILY AC GI (Reported) Oxycodone HCl/Acetaminophen (Percocet 5-325 MG Tablet) 5 MG-325 MG TABLET 1 TAB PO Q4 HRS NEEDED PRN PAIN SCALE 4-6 (MODERATE) Polyethylene Glycol 3350 (Miralax) 17 GRAM/DOSE POWDER 17 GM PO DAILY PRN CONSTIPATION Potassium Chloride (Klor-Con) 20 MEQ PACKET 1 PAC PO DAILY SUPPLEMENT ( Reported) Ramelteon (Rozerem) 8 MG TABLET 8 MG PO QPM PRN SLEEP Ranolazine (Ranexa) 500 MG TAB.ER.12H 1 TAB PO BID ANGINA/CHEST PAIN ( Reported) Tamsulosin HCl (Flomax) 0.4 MG CAP.ER.24H 1 CAP PO DAILY PROSTATE (Reported) Triage Note: TRIAGE: PT TO ER WITH C/C PINS AND NEEDLE DULL TYPE PAIN TO RLE S/P ANEURYSM REPAIR 2 WEEKS AGO. TAKES EXTRA STRENGTH TYLENOL WITH SLIGHT RELIEF NOTED. ALSO WAS STARTED ON GABAPENTIN. Triage Nurses Notes Reviewed? yes Onset: Abrupt Duration: week(s):, constant Timing: recent history Severity: severe Pain/Injury Location: Right: Leg. No Modifying Factors: none HPI: 76-year-old male comes into emergency room for further evaluation of right leg pain. 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 Patient had a bypass in his left lower leg and the axis to it to the right groin. He was told that there was pressure on the nerve which causes chronic damage. He reports that he's been having this persistent pain in the right leg. Patient is on gabapentin. On Percocet at home. The symptoms have been going on for many weeks. Patient has had evaluation with x-rays and ultrasounds with no acute findings. Patient comes in seeking a different medication to help with his pain. Patient does not want any admission to the hospital. (VALERIA REZA) Past History Travel History Traveled to [place] past 21 day No Medical History Any Pertinent Medical History? 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 Psychosocial History Who do you live with Spouse Services at Home None What is your primary language Yoruba Tobacco Use: Quit >30 days ago ETOH Use: denies use Illicit Drug Use: denies illicit drug use Family History Hx Contributory? No (VALERIA REZA) Review of Systems Review of Systems Constitutional: Reports: no symptoms. EENTM: Reports: no symptoms. Respiratory: Reports: no symptoms. Cardiovascular: Reports: no symptoms. Gastrointestinal/Abdominal: Reports: no symptoms. Genitourinary: Reports: no symptoms. Musculoskeletal: Reports: see HPI. Skin: Reports: no symptoms. Neurological/Psychological: Reports: no symptoms. Hematologic/Endocrine: Reports: no symptoms. Immunological: Reports: no symptoms. All Other Systems: Reviewed and Negative (VALERIA REZA) Physical Exam Physical Exam General Appearance: well developed/nourished, mild distress Head: atraumatic Eyes: Bilateral: normal appearance. Ears, Nose, Throat: normal ENT inspection, hearing grossly normal Neck: normal inspection Cardiovascular/Respiratory: no respiratory distress Back: normal inspection Leg Right: soft tissue tenderness, limited range of motion, pain right upper thigh, dorsalis pedis pulse intact, diminished sensation in lower extremity, diminished vibratory sensation Neurologic/Tendon: normal motor functions, responds to pain, no pulse deficit Skin: intact, normal color, warm/dry Lymphatic: no anterior cervical norberto (VALERIA REZA) Progress Differential Diagnosis: arterial insufficiency, cellulitis, CHF, compartment syndrome, contusion, dislocation, DVT, fracture, gout, septic arthritis, sprain, tendon injury, complex regional pain syndrome, radiculopathy, Plan of Care: Current Medications Sig/Damon Start time Last Medication Dose Stop Time Status Admin Morphine Sulfate 4 MG ONCE ONE 02/16 2100 UNVr (Morphine) 02/16 2101 Comments: 02/16/2017 10:18:03 PM Patient was given stronger pain meds to go home with. Patient will follow up with primary care doctor. Patient clinically looks well. In no apparent distress. Nontoxic appearing. case discussed with dr rocha. (VALERIA REZA) Departure Departure Disposition: HOME OR SELF CARE Condition: Stable Clinical Impression Primary Impression: Right leg pain Referrals: AYDE HUGHES MD (PCP/Family) Additional Instructions: Take Dilaudid and Valium as prescribed. Follow-up with your primary care doctor. Return if any concerns worsening symptoms. Please go over all results of today's visit with your primary care doctor. Contact your primary care doctor to let them know you were here in the emergency room. There may be nonspecific findings which may not be related to your visit today here in the emergency room but may require further evaluation and chronic monitoring by your primary care doctor. If you had a laceration today the chance of foreign body always remains. You should follow-up with your primary care doctor for recheck in 3-5 days for a wound check. If you had an x-ray done there is a chance that a fracture could have been missed on initial read and you should follow-up with your primary care doctor for repeat x-rays if symptoms persist. If your blood pressure was elevated here in the emergency room please have rechecked by her primary care doctor within the next 48 hours by your primary care doctor. If you were prescribed a narcotic here in the emergency room or any type of controlled substances you're not allowed to drive while taking this medication or operate any type of heavy machinery. Narcotics can make you feel lightheaded dizziness nausea and can cause constipation. You may need to pickers material handlers a stool softener. Thank you for choosing [facility] emergency room. Please return to the emergency room immediately if you have any other concerns worsening of symptoms. Departure Forms: Customer Survey General Discharge Information Prescriptions: Current Visit Scripts Hydromorphone HCl (Dilaudid) 1 TAB PO Q6P PRN PAIN #20 TAB Diazepam (Valium) 1 TAB PO TID PRN SPASMS #20 TAB (VALERIA REZA) PA/AIRPLANE PATROLLER Co-Sign Statement Statement: ED Attending supervision documentation- [X] I saw and evaluated the patient. I have also reviewed all the pertinent lab results and diagnostic results. I agree with the findings and the plan of care as documented in the PA's/AIRPLANE PATROLLER's documentation. [X] I have reviewed the ED Record and agree with the PA's/AIRPLANE PATROLLER's documentation. [] Additions or exceptions (if any) to the PAs/AIRPLANE PATROLLER's note and plan are summarized below: [] (JONNATHAN DEE,ESTEFANIA Pino)
[2017-02-16] MEDS ORDERED: DILAUDID2 M1 PO (21:26)
[2017-02-16] MEDS ORDERED: VALIUM5 M2 PO (21:26)
== END 2017-02-16 21:38 ==
LOC: ERH 20:10
DX: M79.604 Pain in right leg (principal)
CPT/HCPCS: 96372

== ENCOUNTER 2017-11-21 13:38 | Emergency (ER) | payer OTHER, MEDICARE ==
[~2017-11-21] VITALS: Ht 175.3 cm; Wt 64.0 kg
[~2017-11-21 13:38] MED LIST changes: -CARVEDILOL12.5 M1 PO; +CARVEDILOL25 M1 PO; +DILAUDID2 M1 PO; +GABAPENTIN400 M2 PO; +MELATONIN3 M4 PO; +TYLENOL EXTRA500 M2 PO; +VALIUM5 M2 PO
--- NOTE | 2017-11-21 13:41 | ED MVC/FALL/TRAUMA COMPLAINT ---
History of Present Illness General Chief Complaint: Fall Stated Complaint: BIBA FALL 4 DAYS AGO Source: patient, family Exam Limitations: no limitations Vital Signs & Intake/Output Vital Signs & Intake/Output Vital Signs Date Time Temp Pulse Resp B/P B/P Pulse O2 O2 Flow FiO2 Mean Ox Delivery Rate 11/21 2027 96.7 62 18 121/58 100 Room Air 11/21 1621 97.2 62 16 124/62 92 Room Air 11/21 1418 92 Room Air 11/21 1351 96.2 54 16 125/59 92 Room Air Allergies Coded Allergies: No Known Allergies (02/16/17) Reconcile Medications Acetaminophen (Tylenol Extra Strength) 500 MG TABLET 2 TAB PO PRN PAIN ( Reported) Aspirin (Ecotrin*) 81 MG TABLET.DR 1 TAB PO DAILY HEART (Reported) Atorvastatin Calcium (Lipitor) 80 MG TABLET 0.5 TAB PO DAILY CHOLESTEROL ( Reported) Carvedilol 25 MG TABLET 25 MG PO DAILY HEART HEALTH (Reported) Clopidogrel Bisulfate (Plavix) 75 MG TABLET 1 TAB PO DAILY BLOOD THINNER ( Reported) Diazepam (Valium) 5 MG TABLET 1 TAB PO TID PRN SPASMS Finasteride 5 MG TABLET 1 TAB PO DAILY PROSTATE (Reported) Furosemide (Lasix) 40 MG TABLET 40 MG PO 7:30 AM, & 4:30 PM DIURETIC Gabapentin 400 MG CAPSULE 1 CAP PO TID NEUROPATHY (Reported) Hydromorphone HCl (Dilaudid) 2 MG TABLET 1 TAB PO Q6P PRN PAIN Isosorbide Mononitrate (Isosorbide Mononitrate ER) 60 MG TAB.ER.24H 0.5 TAB PO QAM CHEST/ANGINA (Reported) Magnesium Oxide 400 MG TABLET 400 MG PO BID sUPPLEMENT Melatonin 3 MG TABLET 2 TAB PO QPM SLEEP (Reported) Metformin HCl 500 MG TABLET 1 TAB PO BID DM (Reported) Nitroglycerin 400 MCG/SPRAY SPRAY 1 SPRAY SL 4XDAILY PRN CHEST/JAW DISCOMFORT (Reported) Omeprazole 20 MG TABLET.DR 1 TAB PO DAILY AC GI (Reported) Ondansetron HCl (Zofran) 4 MG TABLET 1 TAB PO Q6-8P PRN NAUSEA Oxycodone HCl/Acetaminophen (Percocet 5-325 MG Tablet) 5 MG-325 MG TABLET 1 TAB PO Q4 HRS NEEDED PRN PAIN SCALE 4-6 (MODERATE) Polyethylene Glycol 3350 (Miralax) 17 GRAM/DOSE POWDER 17 GM PO DAILY PRN CONSTIPATION Potassium Chloride (Klor-Con) 20 MEQ PACKET 1 PAC PO DAILY SUPPLEMENT ( Reported) Ranolazine (Ranexa) 500 MG TAB.ER.12H 1 TAB PO BID ANGINA/CHEST PAIN ( Reported) Tamsulosin HCl (Flomax) 0.4 MG CAP.ER.24H 1 CAP PO DAILY PROSTATE (Reported) Triage Nurses Notes Reviewed? yes Onset: Abrupt Duration: constant Timing: single episode today Severity: moderate HPI: PT IS A 77 hypertension, hyperlipidemia, CAD s/p CABG x4 (20yrs), s/p cardiac catheterization, ischemic cardiomyopathy, LVEF 40-45%, bilateral carotid endarterectomy ( LT 1999, RT 2001), bladder cancer s/p intravesical treatment, recurrent UTI, type 2 diabetes, recent history of septic shock/ MODS secondary to staph aureus (needed mechanical ventilation, treated with cefazolin/ vancomycin stopped at 01/17/2017, GEORGI negative for IE), peripheral vascular disease s/p balloon angioplasty of left leg at [facility] on [facility],its complication psuedoaneurysm rapaired at [facility] patient currently is on Plavix Patient was brought in by a month for concerns of acute onset of one hour prior to arrival of persistent nausea and 3 episodes of vomiting was present states that on Saturday patient was trying to run underneath a closing garage door where the garage door subsequently struck patient to the left side of his head and face where bruising and swelling has occurred since, no loss consciousness had occurred patient did follow-up with his blowing engineer the following day on Saturday for routine evaluation of his heart where he was aware of the traum however patient did not complain at time of any symptoms besides the swelling and bruising Patient states that today when he woke up he was in his normal state of health 8 breakfast and one hour prior to arrival had acute onset of 3 episodes of nonbloody nonbilious emesis nausea still persists patient has mild blurry vision Denies any headache denies any pain denies any abdominal pain shortness of breath cough chest pain and arm pain and jaw pain (Allie LYONS,Faisal) Past History Travel History Traveled to [place] past 21 day No Medical History Any Pertinent Medical History? see below for history Neurological: NONE EENT: oral HSV Cardiovascular: CAD, CHF, hypertension, hyperlipidemia, PVD Respiratory: NONE Gastrointestinal: NONE Hepatic: NONE Renal: NONE Musculoskeletal: NONE Psychiatric: NONE Endocrine: diabetes Blood Disorders: NONE Cancer(s): bladder [employer] MAN/Reproductive: NONE History of MRSA: No History of VRE: No History of CDIFF: No Surgical History Surgical History: CABG, Balloon Angio of LLE. Psychosocial History Who do you live with Spouse Services at Home None What is your primary language French Family History Hx Contributory? No (Faisal Ge) Review of Systems Review of Systems Constitutional: Reports: no symptoms. Eyes: Reports: see HPI. Ears, Nose, Throat, Mouth: Reports: no symptoms. Respiratory: Reports: no symptoms. Cardiovascular: Reports: no symptoms. Gastrointestinal/Abdominal: Reports: see HPI. Genitourinary: Reports: no symptoms. Musculoskeletal: Reports: no symptoms. Skin: Reports: see HPI. Neurological/Psychological: Reports: see HPI. All Other Systems: Reviewed and Negative (Faisal Ge) Physical Exam Physical Exam General Appearance: no apparent distress, alert, comfortable Head: evidence of injury Eyes: Bilateral: normal appearance, PERRL, EOMI. Ears, Nose, Throat, Mouth: hearing grossly normal, moist mucous membrane, Tympanic normal Neck: normal inspection, supple Respiratory: normal breath sounds, chest non-tender, no respiratory distress Cardiovascular: regular rate/rhythm Peripheral Pulses: 2+ radial (R) Gastrointestinal: normal bowel sounds, soft, non-tender Extremities: normal range of motion Neurologic/Psych: no motor/sensory deficits, awake, alert, oriented x 3 Diagram Head: 1) Noted ecchymosis swelling and mild point tenderness skin intact Core Measures ACS in differential dx? No CVA/TIA Diagnosis No Sepsis Present: No Sepsis Focused Exam Completed? No (Faisal Ge) Progress Differential Diagnosis: aoritic dissection, abd injury, C/T/L spine injury, ext injury, ICH, pelvis injury, pnemothorax, spinal cord injury Plan of Care: Orders Procedure Date/time Status Heart Healthy Diet 11/21 D Active TROPONIN LEVEL 11/21 1830 Complete EKG 11/21 1830 Active TROPONIN LEVEL 11/21 1358 Complete COMPREHENSIVE METABOLIC PANEL 11/21 1358 Complete CBC WITHOUT DIFFERENTIAL 11/21 1358 Complete RAPID VIRAL INFLUENZA A 11/21 1341 Complete EKG 11/21 1341 Active Laboratory Tests 11/21/17 1852: Troponin I < 0.01 11/21/17 1430: Anion Gap 13, Estimated GFR > 60, BUN/Creatinine Ratio 35.5 H, Glucose 159 H, Calcium 9.1, Total Bilirubin 0.5, AST 27, ALT 43, Alkaline Phosphatase 96, Troponin I < 0.01, Total Protein 8.0, Albumin 3.9, Globulin 4.1, Albumin/ Globulin Ratio 1.0 L, CBC w Diff MAN DIFF ORDERED, RBC 4.47 L, MCV 73.5 L, MCH 23.1 L, MCHC 31.4 L, RDW 18.9 H, MPV 8.8, Gran % 91.8 H, Lymphocytes % 1.8 L, Monocytes % 4.8, Eosinophils % 0.3, Basophils % 1.3, Absolute Granulocytes 10.8 H, Absolute Lymphocytes 0.2 L, Absolute Monocytes 0.6, Absolute Eosinophils 0, Absolute Basophils 0.1, Platelet Estimate VERIFIED BY SMEAR, Polychromasia 1+, Hypochromic-Microcytic 1+, Poikilocytosis 1+, Anisocytosis 1+, Microcytic Cells 1+, Ovalocytes 1+ Microbiology 11/21 1425 NASOPHARYN: Influenza Virus A & B Rapid Smear - COMP On initial examination patient was in no apparent distress denies any headache however 1450-patient does complain of headache gradual onset however nausea is subsided CT scan was resulted showing no acute process Initial EKG and blood work was unremarkable 1538- patient was reevaluated resting comfortably at bedside denies any symptoms patient will receive second troponin and EKG Second EKG and troponin were unremarkable patient has been resting comfortably at bedside no apparent distress asymptomatic tolerated a meal I discussed CT scan results with patient for a chronic infarcts were he has no history of CVA patient was given copies of CT scan and blood work for follow-up Upon discharge patient looks well no apparent distress and will comply with discharge instructions and had no impressions Due to history of present illness and exam findings patient most likely has postconcussive syndrome DR. NAVARRETE ALSO EVALUATED PT AND AGREES. Diagnostic Imaging: Viewed by Me: CT Scan. Radiology Impression: no fracture Initial ED EKG: normal p-waves, normal QRS complex, 54 BPM,NSR Comments: PATIENT: CAITY BELL PRESENT AGE: 77 PATIENT ACCOUNT NO: [id number] : 38 LOCATION: [facility] ORDERING PHYSICIAN: Faisal LYONS SERVICE DATE: 11/21/178886 EXAM TYPE: CAT - CT HEAD WO IV CONTRAST; CT MAXILLOFACIAL W/O CON EXAMINATION: CT HEAD WITHOUT CONTRAST CT FACIAL BONES WITHOUT CONTRAST CLINICAL INFORMATION: Head strike. Nausea. Left orbital trauma. On Plavix. COMPARISON: CT scan of the head 12/22/2016. TECHNIQUE: Multidetector CT imaging of the head and facial bones was performed without the use of intravenous contrast. Coronal and sagittal reformatted images were generated at the technologist workstation. DLP: 1351.15 mGy-cm. FINDINGS: CT head: There is no evidence of acute intracranial hemorrhage or territorial infarction. No abnormal mass-effect or midline shift is seen. Zaldivar to white matter differentiation is well preserved. No extra-axial fluid collections are identified. The ventricles and sulci are commensurately prominent consistent with [id number] diffuse volume loss, which is unchanged. There are relatively extensive areas of low attenuation in the periventricular and subcortical white matter, consistent with chronic microvascular ischemic disease. There is a lacunar infarct in the left caudate region. There is a hematoma in the left supraorbital scalp, without evidence of a laceration. The underlying osseous structures are unremarkable. No acute fractures are seen. There are atheromatous calcifications of the cavernous internal carotid arteries bilaterally. The mastoid air cells are well-aerated. There is a fluid level in the posterior left maxillary sinus which is a new finding compared to the prior study. CT facial bones: There is no acute maxillofacial fracture. The mandible and mandibular condyles are intact. The pterygoid plates, zygomatic arches and lamina papyracea are intact. The bony orbital rims are intact. The nasal bones are intact. There is a fluid level in the left maxillary sinus. There is leftward deviation of the nasal septum anteriorly and inferiorly with a left-sided bony nasal septal spur. There are no large nasal cavity no masses or polyps. There is mild mucoperiosteal thickening at the left ostiomeatal complex. The ethmoid roofs are asymmetric higher on the left. The carotid canals are normally covered by bone. There is a left carotid artery stent, and there are bilateral surgical clips around the carotid bifurcations. No fractures or subluxations are seen in the visualized upper cervical spine. The patient is edentulous in the mandible and the maxilla. The mastoid air cells and visualized middle ear cavities are well-aerated. The intraorbital structures are normal. The TMJs are unremarkable. IMPRESSION: 1. There are no acute bleeds or territorial infarcts. 2. 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 3. There is a scalp hematoma in the left supraorbital orbital region. There are no acute osseous findings. 4. There are no fractures of the facial bones. DICTATED BY: Layton Almanzar MD DATE/TIME DICTATED:11/21/171434 CHIP TUNER:VANESSA DATE/TIME TRANSCRIBED:11/21/171434 (Faisal Ge) Departure Departure Disposition: HOME OR SELF CARE Condition: Stable Clinical Impression Primary Impression: Post concussion syndrome Referrals: Juan Carlos Marie MD (PCP/Family) Additional Instructions: As discussed begin [id number] Naprosyn or Tylenol for future headaches and begin the prescription of Zofran for nausea, if no better in 2 days follow-up with neurologist for further evaluation treatment IF Symptoms worsen return to emergency room Please provide your primary care doctor with the copies of blood work and imaging provided to you Departure Forms: Customer Survey General Discharge Information Prescriptions: Current Visit Scripts Ondansetron HCl (Zofran) 1 TAB PO Q6-8P PRN NAUSEA #10 TAB (Faisal Ge) PA/STORE STOCK ASSOCIATE Co-Sign Statement Statement: ED Attending supervision documentation- x I saw and evaluated the patient. I have also reviewed all the pertinent lab results and diagnostic results. I agree with the findings and the plan of care as documented in the PA's/STORE STOCK ASSOCIATE's documentation. [] I have reviewed the ED Record and agree with the PA's/STORE STOCK ASSOCIATE's documentation. [] Additions or exceptions (if any) to the PAs/STORE STOCK ASSOCIATE's note and plan are summarized below: [] (Juan DEE,John)
[2017-11-21 14:48] LABS: ABSOLUTE BASOPHIL COUNT 0.1 /CUMM (0.0-0.2); ABSOLUTE EOSINOPHIL COUNT 0 /CUMM (0.0-0.7); ABSOLUTE GRANULOCYTE CT 10.8 /CUMM (1.4-6.5); ABSOLUTE LYMPH COUNT 0.2 /CUMM (1.2-3.4); ABSOLUTE MONOCYTE COUNT 0.6 /CUMM (0.10-0.60); BASOPHIL % 1.3 % (0.0-2.0); EOSINOPHIL % 0.3 % (0-5); GRANULOCYTE % 91.8 % (42.2-75.2); HEMATOCRIT 32.9 % (42-52); MEAN CORPUSCULAR HGB 23.1 PG (27.0-31.0); MEAN CORPUSCULAR HGB CONC 31.4 G/DL (33.0-37.0); MEAN CORPUSCULAR VOLUME 73.5 FL (80.0-94.0); MEAN PLATELET VOLUME 8.8 FL (7.4-10.4); PLATELET COUNT 320 /CUMM (130-400); RBC DISTRIBUTION WIDTH 18.9 % (11.5-14.5); RED BLOOD CELL CT 4.47 /CUMM (4.70-6.10); WHITE BLOOD CELL COUNT 11.7 /CUMM (4.8-10.8)
--- NOTE | 2017-11-21 14:51 | CT SCAN REPORT ---
EXAMINATION: CT HEAD WITHOUT CONTRAST CT FACIAL BONES WITHOUT CONTRAST CLINICAL INFORMATION: Head strike. Nausea. Left orbital trauma. On Plavix. COMPARISON: CT scan of the head 12/22/2016. TECHNIQUE: Multidetector CT imaging of the head and facial bones was performed without the use of intravenous contrast. Coronal and sagittal reformatted images were generated at the technologist workstation. DLP: 1351.15 mGy-cm. FINDINGS: CT head: There is no evidence of acute intracranial hemorrhage or territorial infarction. No abnormal mass-effect or midline shift is seen. Zaldivar to white matter differentiation is well preserved. No extra-axial fluid collections are identified. The ventricles and sulci are commensurately prominent consistent with [id number] diffuse volume loss, which is unchanged. There are relatively extensive areas of low attenuation in the periventricular and subcortical white matter, consistent with chronic microvascular ischemic disease. There is a lacunar infarct in the left caudate region. There is a hematoma in the left supraorbital scalp, without evidence of a laceration. The underlying osseous structures are unremarkable. No acute fractures are seen. There are atheromatous calcifications of the cavernous internal carotid arteries bilaterally. The mastoid air cells are well-aerated. There is a fluid level in the posterior left maxillary sinus which is a new finding compared to the prior study. CT facial bones: There is no acute maxillofacial fracture. The mandible and mandibular condyles are intact. The pterygoid plates, zygomatic arches and lamina papyracea are intact. The bony orbital rims are intact. The nasal bones are intact. There is a fluid level in the left maxillary sinus. There is leftward deviation of the nasal septum anteriorly and inferiorly with a left-sided bony nasal septal spur. There are no large nasal cavity no masses or polyps. There is mild mucoperiosteal thickening at the left ostiomeatal complex. The ethmoid roofs are asymmetric higher on the left. The carotid canals are normally covered by bone. There is a left carotid artery stent, and there are bilateral surgical clips around the carotid bifurcations. No fractures or subluxations are seen in the visualized upper cervical spine. The patient is edentulous in the mandible and the maxilla. The mastoid air cells and visualized middle ear cavities are well-aerated. The intraorbital structures are normal. The TMJs are unremarkable. IMPRESSION: 1. There are no acute bleeds or territorial infarcts. 2. 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 3. There is a scalp hematoma in the left supraorbital orbital region. There are no acute osseous findings. 4. There are no fractures of the facial bones.
[2017-11-21] MEDS ORDERED: ZOFRAN4 M2 PO (19:52)
[2017-11-21 20:28] VITALS: BP 121/58
[2017-11-22] MEDS ORDERED: LASIX40 M1 PO (16:15)
[2017-11-22] MEDS ORDERED: LASIX80 M1 PO (16:15)
[2017-11-22] MEDS ORDERED: K-TAB ER10 MEQ PO (16:17)
[2017-11-22] MEDS ORDERED: LISINOPRIL2.5 M1 PO (16:18)
[2017-11-22] MEDS ORDERED: MELATONIN3 M4 PO (16:18)
== END 2017-11-21 20:51 ==
LOC: ERH 13:38
PROVIDERS: Physician Assistant
DX: F07.81 Postconcussional syndrome (principal)
CPT/HCPCS: 87804; 87804-59; 93005; 93010; 96374; 96375; J0131; J2405

== ENCOUNTER 2017-11-22 14:59 | Inpatient (IN) | payer OTHER, MEDICARE ==
[~2017-11-22] VITALS: Ht 177.8 cm; Wt 66.4 kg
[~2017-11-22 14:59] MED LIST changes: +ZOFRAN4 M2 PO
--- NOTE | 2017-11-22 15:04 | ED AMS/SEIZURE/WEAK/DIZZY ---
History of Present Illness General Chief Complaint: General Adult Stated Complaint: BIBA, LETHARGY Source: patient Exam Limitations: no limitations Vital Signs & Intake/Output Vital Signs & Intake/Output Vital Signs Date Time Temp Pulse Resp B/P B/P Pulse O2 O2 Flow FiO2 Mean Ox Delivery Rate 11/22 1730 134/59 11/22 1650 95 Nasal 3.0L Cannula 11/22 1508 97.7 61 20 103/54 91 Room Air Allergies Coded Allergies: No Known Allergies (02/16/17) Reconcile Medications Acetaminophen (Tylenol Extra Strength) 500 MG TABLET 2 TAB PO PRN PAIN ( Reported) Aspirin (Ecotrin*) 81 MG TABLET.DR 1 TAB PO DAILY HEART (Reported) Atorvastatin Calcium (Lipitor) 80 MG TABLET 0.5 TAB PO DAILY CHOLESTEROL ( Reported) Carvedilol (Unknown Strength) TABLET (Unknown Dose) PO DAILY HEART HEALTH ( Reported) Clopidogrel Bisulfate (Plavix) 75 MG TABLET 1 TAB PO DAILY BLOOD THINNER ( Reported) Finasteride 5 MG TABLET 1 TAB PO DAILY PROSTATE (Reported) Furosemide (Lasix) 80 MG TABLET 1 TAB PO QPM DIURETIC (Reported) Furosemide (Lasix) 40 MG TABLET 120 MG PO QAM DIURETIC (Reported) Gabapentin 400 MG CAPSULE 1 CAP PO TID NEUROPATHY (Reported) Isosorbide Mononitrate (Isosorbide Mononitrate ER) 60 MG TAB.ER.24H 0.5 TAB PO QAM CHEST/ANGINA (Reported) Lisinopril 2.5 MG TABLET 1 TAB PO DAILY BP (Reported) Magnesium Oxide 400 MG TABLET 400 MG PO BID sUPPLEMENT Melatonin 3 MG TABLET 6 MG PO QPM SUPPLEMENT (Reported) Metformin HCl 500 MG TABLET 1 TAB PO BID DM (Reported) Omeprazole 20 MG TABLET.DR 1 TAB PO DAILY AC GI (Reported) Potassium Chloride (K-Tab ER) 10 MEQ TABLET.ER 2 TAB PO DAILY SUPPLEMENT ( Reported) Ranolazine (Ranexa) 500 MG TAB.ER.12H 2 TAB PO BID ANGINA/CHEST PAIN ( Reported) Tamsulosin HCl (Flomax) 0.4 MG CAP.ER.24H 1 CAP PO DAILY PROSTATE (Reported) Triage Nurses Notes Reviewed? yes Onset: Gradual Duration: getting worse Timing: recent history Injury Environment: home Severity: moderate Severity Numbers: 6 HPI: PT IS A 77 hypertension, hyperlipidemia, CAD s/p CABG x4 (20yrs), s/p cardiac catheterization, ischemic cardiomyopathy, LVEF 40-45%, bilateral carotid endarterectomy ( LT 1999, RT 2001), bladder cancer s/p intravesical treatment, recurrent UTI, type 2 diabetes, recent history of septic shock/ MODS secondary to staph aureus (needed mechanical ventilation, treated with cefazolin/ vancomycin stopped at 01/17/2017, GEORGI negative for IE), peripheral vascular disease s/p balloon angioplasty of [place] leg at [place] on [place],its complication psuedoaneurysm rapaired at [facility] patient currently is on Plavix YESTERDAY, Patient was BIBA for concerns of acute onset of one hour prior to arrival of persistent nausea and 3 episodes of vomiting was present states that on Saturday patient was trying to run underneath a closing garage door where the garage door subsequently struck patient to the left side of his head and face where bruising and swelling has occurred since, no loss consciousness had occurred 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 on Saturday for routine evaluation of his heart where he was aware of the traum however patient did not complain at time of any symptoms besides the swelling and bruising Patient states that today when he woke up he was in his normal state of health ATE breakfast and one hour prior to arrival had acute onset of 3 episodes of nonbloody nonbilious emesis nausea still persists patient has mild blurry vision Patient was evaluated yesterday by me where he received CT scan of head and maxillofacial with unremarkable findings blood work unremarkable findings patient was initially given Zofran IV and had complete resolution of nausea patient did complain of headache while in the emergency room patient was given IV Tylenol with resolution of headache patient had second set will be troponin unremarkable patient left yesterday for the emergency room asymptomatic. Patient returns to the emergency room today brought in by ambulance for lethargy Patient was discharged with concerns of postconcussive syndrome patient returns emergency room with shortness of breath lethargy blurred vision and dizziness. No vomiting has occurred patient is able tolerate by mouth denies any abdominal pain chest pain or arm pain jaw pain cough Patient has mild global headache is noting worsening leg swelling more in the left and the right denies any calf pain (Allie LYONS,Faisal) Past History Travel History Traveled to [place] past 21 day No (0) Medical History Any Pertinent Medical History? 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 Psychosocial History Who do you live with Spouse Services at Home None What is your primary language Armenian Family History Hx Contributory? No (Faisal Ge) Review of Systems Review of Systems Constitutional: Reports: see HPI. EENTM: Reports: see HPI, blurred vision. Respiratory: Reports: see HPI, short of breath. Cardiovascular: Reports: no symptoms. GI: Reports: see HPI. Genitourinary: Reports: no symptoms. Musculoskeletal: Reports: no symptoms. Skin: Reports: no symptoms. Neurological/Psychological: Reports: see HPI. Hematologic/Endocrine: Reports: no symptoms. Immunologic/Allergic: Reports: no symptoms. All Other Systems: Reviewed and Negative (Faisal Ge) Physical Exam Physical Exam General Appearance: no apparent distress, lethargic Head: evidence of injury Eyes: Bilateral: normal appearance, PERRL, EOMI. Ears, Nose, Throat: normal pharynx, normal ENT inspection, hearing grossly normal Neck: normal inspection Respiratory: quiet respiration, decreased breath sounds Cardiovascular: regular rate/rhythm Peripheral Pulses: 2+ radial (R) Gastrointestinal: normal bowel sounds, soft, non-tender Extremities: pedal edema Neurologic/Psych: no motor/sensory deficits, oriented x 3 Skin: intact, warm/dry Diagram Body: 1) Noted ecchymosis and point tenderness and mild swelling Core Measures ACS in differential dx? Yes CVA/TIA Diagnosis No Sepsis Present: No Sepsis Focused Exam Completed? No (Faisal Ge) Progress Differential Diagnosis: arrythmia, anemia, CVA/stroke, dehydration, drug intoxication, encephalitis, electrolyte imbalance, GI bleed, hypoglycemia, hypoxia, intracranial Hem., intracranial mass/tumor, labrynthitis, meningitis, Meniere's disease, migraine SANTOS, multiple sclerosis, pneumonia, postural hypotension, presyncope, post-traumatic vertigo, sepsis, seizure disorder, subarachnoid Hem., UTI/pyelo, vertebrobasilar insuff Diagnostic Imaging: Viewed by Me: CT Scan. Radiology Impression: acute abnormality Initial ED EKG: normal p-waves, normal QRS complex, 55 BPM,NSR, RBBB Prior EKG: unchanged Comments: PATIENT: BRENDEN BELL PRESENT AGE: 77 PATIENT ACCOUNT NO: [id number] : 38 LOCATION: [facility] ORDERING PHYSICIAN: Faisal LYONS SERVICE DATE: 11/22/171528 EXAM TYPE: CAT - CT ABD & PELVIS W IV CONTRAST EXAMINATION: CT ABDOMEN AND PELVIS WITH CONTRAST CLINICAL INFORMATION: Nausea. Pain. COMPARISON: Same day chest CTA. TECHNIQUE: Contiguous axial thin section helical images of the abdomen and pelvis were performed following the administration of 120 mL of intravenous Optiray 320. The data set was reformatted in the coronal and sagittal planes and reviewed on an independent workstation. DLP: 679 mGy-cm. FINDINGS: There are moderate to large bilateral pleural effusions, right greater than left with bibasilar atelectasis and groundglass opacification. The visualized portions of the heart are unremarkable. Emphysema is demonstrable. The liver is of normal size and mildly heterogeneous attenuation without focal lesions nor intrahepatic biliary ductal dilation. The gallbladder is distended. There is no gallbladder wall thickening. There are no gallbladder wall calculi. There is pericholecystic fluid. There is also a small amount of free fluid about the inferior aspect of the right lobe of the liver. The spleen, pancreas, adrenal glands are unremarkable. Both kidneys are of normal size and attenuation without hydronephrosis or nephrolithiasis. Following the administration of IV contrast, prompt symmetric nephrograms are displayed. There is no abdominal free fluid. There is neither mesenteric nor retroperitoneal lymphadenopathy. There is extensive sigmoid diverticulosis without evidence of diverticulitis; otherwise, unremarkable unopacified loops of small and large bowel are identified. There is a a aqbkp-og-iyuqhgtm amount of pelvic free fluid. The urinary bladder is unremarkable. There is neither pelvic nor inguinal lymphadenopathy. Bone windows: Neither sclerotic nor lytic bone lesions are identified. IMPRESSION: Moderate to large bilateral pleural effusions. Small amount of abdominal free fluid. Elpms-gh-tlxzcish amount of pelvic free fluid. Distended gallbladder without wall thickening or cholelithiasis. Heterogeneous attenuation to the liver without discrete mass lesions. Sigmoid diverticulosis without evidence of diverticulitis. DICTATED BY: Israel Funk MD DATE/TIME DICTATED:11/22/171655 MEDICAL ART THERAPIST:VANESSA DATE/TIME TRANSCRIBED:11/22/171655 CONFIDENTIAL, DO NOT COPY WITHOUT APPROPRIATE AUTHOR PATIENT: BRENDEN BELL PRESENT AGE: 77 PATIENT ACCOUNT NO: [id number] : 38 LOCATION: ER ORDERING PHYSICIAN: Faisal LYONS SERVICE DATE: 11/22/17 EXAM TYPE: CAT - CTA CHEST-PULMONARY EMBOLISM EXAMINATION: CT PULMONARY EMBOLISM STUDY CLINICAL INFORMATION: Shortness of breath. COMPARISON: 01/28/2017. TECHNIQUE: Contiguous helical images of the chest were obtained following the administration of IV contrast. Multiplanar reconstructions were performed. MIPS were obtained and reviewed. DLP: 679 mGy-cm. CONTRAST: 120 mL of Optiray 350 were administered without incident. FINDINGS: The heart is of normal size. There is no pericardial effusion. The great vessels are unremarkable. Specifically, there is no pulmonary arterial filling defect. There is no CT evidence for pulmonary embolism. There are no chest wall masses. There are moderate to large bilateral pleural effusions, right greater than left. There is associated bibasilar airspace disease. There is extensive emphysema. Limited evaluation of the upper abdomen demonstrates that the liver is of normal size and attenuation without focal lesions. Normal adrenal glands are identified. IMPRESSION: No CT evidence for pulmonary embolism. Extensive emphysema. Moderate to large bilateral pleural effusions, right greater than left with associated bibasilar airspace disease. DICTATED BY: Israel Funk MD DATE/TIME DICTATED:11/22/171651 MEDICAL ART THERAPIST:VANESSA DATE/TIME TRANSCRIBED:11/22/171651 PATIENT: BRENDEN BELL PRESENT AGE: 77 PATIENT ACCOUNT NO: [id number] : 38 LOCATION: [facility] ORDERING PHYSICIAN: Faisal LYONS SERVICE DATE: 11/22/17 EXAM TYPE: CAT - CT HEAD WO IV CONTRAST EXAMINATION: CT HEAD WITHOUT CONTRAST CLINICAL INFORMATION: Trauma to head. COMPARISON: 11/21/2017. TECHNIQUE: Contiguous helical images of the brain were obtained without IV contrast. Multiplanar reconstructions were performed. DLP: 875 mGy-cm. FINDINGS: There are no pathologic extra-axial fluid collections. The lateral, third, fourth ventricles are prominent, though stable, age-appropriate and concordant with the appearance of the sulci. There is no evidence for acute intraparenchymal hemorrhage or infarct. There is periventricular low attenuation indicative of small vessel disease. There is neither mass nor mass effect. There is no shift of midline structures. The paranasal sinuses and mastoid air cells are clear. There are no osseous lesions. IMPRESSION: No evidence for acute intracranial injury. Stable age-appropriate appearance of the brain. DICTATED BY: Israel Funk MD DATE/TIME DICTATED:11/22/171644 (Faisal Ge) Plan of Care: Orders Procedure Date/time Status Heart Healthy Diet 11/23 B Active LACTIC ACID 11/22 1816 Active Patient Data 11/22 180 Active Misc Message 11/22 175 Active ED Holding Orders 11/22 175 Active Admit to inpatient 11/22 1757 Active Vital Signs 11/22 175 Active Code Status 11/22 1757 Active EKG 11/22 1520 Active RAPID VIRAL INFLUENZA A 11/22 1519 Complete LACTIC ACID 11/22 1516 Complete CULTURE,URINE 11/22 1511 Active BLOOD CULTURE 11/22 1511 Active URINALYSIS 11/22 1511 Active TROPONIN LEVEL 11/22 1510 Complete MAGNESIUM 11/22 1510 Complete D-DIMER 11/22 1510 Complete COMPREHENSIVE METABOLIC PANEL 11/22 1510 Complete B-TYPE NATRIURETIC PEP (BNP) 11/22 1510 Complete ARTERIAL BLOOD GAS (GEN) 11/22 1509 Complete Telemetry/Manager Of Community Relations 11/22 1509 Active CBC WITHOUT DIFFERENTIAL 11/22 1509 Complete Current Medications Sig/Damon Start time Last Medication Dose Stop Time Status Admin Albuterol Sulfate 3 ML ONCE ONE 11/22 1800 UNVr 11/22 (Proventil) 11/22 1801 1812 Ipratropium [place] 2.5 ML ONCE ONE 11/22 1800 UNVr 11/22 (Atrovent) 11/22 1801 1812 Methylprednisolone 125 MG ONCE ONE 11/22 1800 UNVr (Solu Medrol) 11/22 1801 Furosemide 40 MG ONCE ONE 11/22 1730 CANr (Lasix) 11/22 1731 Laboratory Tests 11/22/17 1545: Lactic Acid 3.5 H 11/22/17 1545: Anion Gap 18 H, Estimated GFR 42 L, BUN/Creatinine Ratio 31.9 H, Glucose 147 H, Calcium 9.0, Magnesium 2.2, Total Bilirubin 0.5, AST 19, ALT 37, Alkaline Phosphatase 98, Troponin I 0.04, Svi-P-Lfpcpijzklc Pept 23938 H, Total Protein 7.9, Albumin 3.9, Globulin 4.0, Albumin/Globulin Ratio 1.0 L, D-Dimer High Sensitivty 757 H, CBC w Diff NO MAN DIFF REQ, RBC 4.29 L, MCV 73.4 L, MCH 23.3 L, MCHC 31.7 L, RDW 19.2 H, MPV 9.1, Gran % 88.7 H, Lymphocytes % 4.5 L, Monocytes % 5.7, Eosinophils % 0.9, Basophils % 0.2, Absolute Granulocytes 3.2, Absolute Lymphocytes 0.2 L, Absolute Monocytes 0.2, Absolute Eosinophils 0 , Absolute Basophils 0 11/22/17 1530: pH 7.39, pCO2 38, pO2 100, HCO3 23, ABG O2 Sat (Measured) 95.0 L, Carboxyhemoglobin 0.9 L, O2 Concentration % 3L, O2 Delivery Method NC, Phlebotomy Draw Site LEFT RADIAL Microbiology 11/22 1642 NASOPHARYN: Influenza Virus A & B Rapid Smear - COMP 11/22 1633 BLOOD: Blood Culture - RECD 11/22 1545 BLOOD: Blood Culture - RECD 11/22 1511 URINE ROUT: Urine Culture - ORD Patient on initial presentation from compared to yesterday showed worsening lethargy patient was complaining of headache and nausea patient has decreased breath sounds on initial examination ABG was unremarkable however was given supplemental nasal cannula oxygen due to dyspnea concerns patient has nontender abdomen however has lower extremity edema Patient initially presented with 105/50 blood pressure and he was concerned of lethargy and sepsis initially due to patient's shortness of breath and nausea Blood work is obtained initially there was a elevation of patient's creatinine and which IV fluids were initially ordered however this was discontinued immediately after the imaging was results of CT scan showing pleural effusions Patient's repeat blood pressure was normotensive discussed admission with Dr. Lund who was aware advised to not administer fluids nor Lasix patient is on 200 mg a day of by mouth Lasix where he did take a deep 120 prior to arrival this morning Discussed admission with patient and family members were aware (Allie LYONS,Faisal) Comments: 11/22/2017 5:44:37 PM I evaluated Brenden personally. He was resting comfortably on the stretcher with a 97% oxygen saturation and normal heart rate. (Kelsey DEE,Antwan Huerta) Departure Departure Disposition: STILL A PATIENT Condition: Guarded Clinical Impression Primary Impression: Hyperkalemia Secondary Impressions: NORMA (acute kidney injury), CHF exacerbation, COPD ( chronic obstructive pulmonary disease) Referrals: Juan Carlos Marie MD (PCP/Family) Departure Forms: Customer Survey General Discharge Information Admission Note Spoke With: Patricia Cedeno MD Documentation of Exam: Documentation of any treatments & extenuating circumstances including Concerns Regarding Discharge (functional status, medication knowledge or non-compliance, living conditions, etc.) that warrant an admission rather than observation: [ Patient requires telemetry monitoring repeat labs repeat cardiac enzymes repeat EKG IV steroids repeated nebulizer treatments, pulmonary consultation cardiology consultation echocardiogram] (Faisal Ge) PA/BALLISTICS PROFESSOR Co-Sign Statement Statement: ED Attending supervision documentation- [x] I saw and evaluated the patient. I have also reviewed all the pertinent lab results and diagnostic results. I agree with the findings and the plan of care as documented in the PA's/BALLISTICS PROFESSOR's documentation. Patient presents for evaluation of lethargy and shortness of breath. Patient currently takes 200 mg of Lasix daily for history of congestive heart failure. [] I have reviewed the ED Record and agree with the PA's/BALLISTICS PROFESSOR's documentation. [] Additions or exceptions (if any) to the PAs/BALLISTICS PROFESSOR's note and plan are summarized below: [] (Kelsey DEE,Antwan Huerta) Critical Care Note Critical Care Note Critical Care Time: 30-74 min (Faisal Ge)
[2017-11-22 16:01] LABS: ABSOLUTE BASOPHIL COUNT 0 /CUMM (0.0-0.2); ABSOLUTE EOSINOPHIL COUNT 0 /CUMM (0.0-0.7); ABSOLUTE GRANULOCYTE CT 3.2 /CUMM (1.4-6.5); ABSOLUTE LYMPH COUNT 0.2 /CUMM (1.2-3.4); ABSOLUTE MONOCYTE COUNT 0.2 /CUMM (0.10-0.60); BASOPHIL % 0.2 % (0.0-2.0); EOSINOPHIL % 0.9 % (0-5); HEMATOCRIT 31.5 % (42-52); MEAN CORPUSCULAR HGB 23.3 PG (27.0-31.0); MEAN CORPUSCULAR HGB CONC 31.7 G/DL (33.0-37.0); MEAN CORPUSCULAR VOLUME 73.4 FL (80.0-94.0); MEAN PLATELET VOLUME 9.1 FL (7.4-10.4); PLATELET COUNT 314 /CUMM (130-400); RBC DISTRIBUTION WIDTH 19.2 % (11.5-14.5); RED BLOOD CELL CT 4.29 /CUMM (4.70-6.10)
[2017-11-22 16:02] LABS: WHITE BLOOD CELL COUNT 3.6 /CUMM (4.8-10.8)
[2017-11-22] MEDS ORDERED: LASIX80 M1 PO (16:15)
[2017-11-22] MEDS ORDERED: LASIX40 M1 PO (16:15)
[2017-11-22] MEDS ORDERED: K-TAB ER10 MEQ PO (16:17)
[2017-11-22] MEDS ORDERED: LISINOPRIL2.5 M1 PO (16:18)
[2017-11-22] MEDS ORDERED: MELATONIN3 M4 PO (16:18)
[2017-11-22 16:19] LABS: GRANULOCYTE % 88.7 % (42.2-75.2)
--- NOTE | 2017-11-22 16:55 | CT SCAN REPORT ---
EXAMINATION: CT HEAD WITHOUT CONTRAST CLINICAL INFORMATION: Trauma to head. COMPARISON: 11/21/2017. TECHNIQUE: Contiguous helical images of the brain were obtained without IV contrast. Multiplanar reconstructions were performed. DLP: 875 mGy-cm. FINDINGS: There are no pathologic extra-axial fluid collections. The lateral, third, fourth ventricles are prominent, though stable, age-appropriate and concordant with the appearance of the sulci. There is no evidence for acute intraparenchymal hemorrhage or infarct. There is periventricular low attenuation indicative of small vessel disease. There is neither mass nor mass effect. There is no shift of midline structures. The paranasal sinuses and mastoid air cells are clear. There are no osseous lesions. IMPRESSION: No evidence for acute intracranial injury. Stable age-appropriate appearance of the brain.
--- NOTE | 2017-11-22 16:58 | CT SCAN REPORT ---
EXAMINATION: CT PULMONARY EMBOLISM STUDY CLINICAL INFORMATION: Shortness of breath. COMPARISON: 01/28/2017. TECHNIQUE: Contiguous helical images of the chest were obtained following the administration of IV contrast. Multiplanar reconstructions were performed. MIPS were obtained and reviewed. DLP: 679 mGy-cm. CONTRAST: 120 mL of Optiray 350 were administered without incident. FINDINGS: The heart is of normal size. There is no pericardial effusion. The great vessels are unremarkable. Specifically, there is no pulmonary arterial filling defect. There is no CT evidence for pulmonary embolism. There are no chest wall masses. There are moderate to large bilateral pleural effusions, right greater than left. There is associated bibasilar airspace disease. There is extensive emphysema. Limited evaluation of the upper abdomen demonstrates that the liver is of normal size and attenuation without focal lesions. Normal adrenal glands are identified. IMPRESSION: No CT evidence for pulmonary embolism. Extensive emphysema. Moderate to large bilateral pleural effusions, right greater than left with associated bibasilar airspace disease.
--- NOTE | 2017-11-22 17:02 | CT SCAN REPORT ---
EXAMINATION: CT ABDOMEN AND PELVIS WITH CONTRAST CLINICAL INFORMATION: Nausea. Pain. COMPARISON: Same day chest CTA. TECHNIQUE: Contiguous axial thin section helical images of the abdomen and pelvis were performed following the administration of 120 mL of intravenous Optiray 320. The data set was reformatted in the coronal and sagittal planes and reviewed on an independent workstation. DLP: 679 mGy-cm. FINDINGS: There are moderate to large bilateral pleural effusions, right greater than left with bibasilar atelectasis and groundglass opacification. The visualized portions of the heart are unremarkable. Emphysema is demonstrable. The liver is of normal size and mildly heterogeneous attenuation without focal lesions nor intrahepatic biliary ductal dilation. The gallbladder is distended. There is no gallbladder wall thickening. There are no gallbladder wall calculi. There is pericholecystic fluid. There is also a small amount of free fluid about the inferior aspect of the right lobe of the liver. The spleen, pancreas, adrenal glands are unremarkable. Both kidneys are of normal size and attenuation without hydronephrosis or nephrolithiasis. Following the administration of IV contrast, prompt symmetric nephrograms are displayed. There is no abdominal free fluid. There is neither mesenteric nor retroperitoneal lymphadenopathy. There is extensive sigmoid diverticulosis without evidence of diverticulitis; otherwise, unremarkable unopacified loops of small and large bowel are identified. There is a a kyypk-pc-upvcrmxu amount of pelvic free fluid. The urinary bladder is unremarkable. There is neither pelvic nor inguinal lymphadenopathy. Bone windows: Neither sclerotic nor lytic bone lesions are identified. IMPRESSION: Moderate to large bilateral pleural effusions. Small amount of abdominal free fluid. Pjjrt-dk-vvsqshmt amount of pelvic free fluid. Distended gallbladder without wall thickening or cholelithiasis. Heterogeneous attenuation to the liver without discrete mass lesions. Sigmoid diverticulosis without evidence of diverticulitis.
--- NOTE | 2017-11-22 18:04 | History & Physical ---
Jimbo Harris MD 11/22/17 1804: General Information and HPI History of Present Illness: Mr. Mejia is a 77-year-old male with past medical history of CAD status post CABG, HFrEF (EF 40-45%, stage 2 diastolic dysfunction), hypertension, lipidemia, peripheral vascular disease, bilateral carotid endarterectomies, diabetes mellitus who presents with shortness of breath. History by the patient is limited by his medical condition. Per the patient, he has been short of breath for about a week. He does confirm that he got hit by a garage door which caused trauma to his left eye. He was here yesterday with shortness of breath and then went home. He felt much better and supper the night well. He sits on 2 pillows. He then went woke up and started having shortness of breath. He also says that he has had some chest pain on and off the past 2 days described as a pressure. He says he is short of breath a little bit right now and also feeling very drowsy. Per the notes, the patient was brought in by ambulance yesterday with persistent nausea and vomiting. He did not have any loss of consciousness from being hit in the head but a garage door. He did follow-up with his selling underwriter the following day for routine evaluation. CT scan of the head and maxillofacial was unremarkable and the blood work was also unremarkable yesterday. He is given IV ondansetron and had complete resolution the nausea. He was then discharged home. According to his , he was fine when he went home yesterday. He also woke up this morning and was feeling fairly well. He did have some mild nausea. They watched a movie and then this afternoon afterwards, the son was trying to get him into a chair and he was very weak. They didn't notice that he was disoriented and drowsy. Because of this they called an ambulance to bring him in for further evaluation. The notes that he has chronic shortness of breath due to emphysema but did not have any recent fevers or chest pain. Allergies/Medications Allergies: Coded Allergies: No Known Allergies (02/16/17) Home Med list Acetaminophen (Tylenol Extra Strength) 500 MG TABLET 2 TAB PO PRN PAIN ( Reported) Aspirin (Ecotrin*) 81 MG TABLET.DR 1 TAB PO DAILY HEART (Reported) Atorvastatin Calcium (Lipitor) 80 MG TABLET 0.5 TAB PO DAILY CHOLESTEROL ( Reported) Carvedilol (Unknown Strength) TABLET (Unknown Dose) PO DAILY HEART HEALTH ( Reported) Clopidogrel Bisulfate (Plavix) 75 MG TABLET 1 TAB PO DAILY BLOOD THINNER ( Reported) Finasteride 5 MG TABLET 1 TAB PO DAILY PROSTATE (Reported) Furosemide (Lasix) 80 MG TABLET 1 TAB PO QPM DIURETIC (Reported) Furosemide (Lasix) 40 MG TABLET 120 MG PO QAM DIURETIC (Reported) Gabapentin 400 MG CAPSULE 1 CAP PO TID NEUROPATHY (Reported) Isosorbide Mononitrate (Isosorbide Mononitrate ER) 60 MG TAB.ER.24H 0.5 TAB PO QAM CHEST/ANGINA (Reported) Lisinopril 2.5 MG TABLET 1 TAB PO DAILY BP (Reported) Magnesium Oxide 400 MG TABLET 400 MG PO BID sUPPLEMENT Melatonin 3 MG TABLET 6 MG PO QPM SUPPLEMENT (Reported) Metformin HCl 500 MG TABLET 1 TAB PO BID DM (Reported) Omeprazole 20 MG TABLET.DR 1 TAB PO DAILY AC GI (Reported) Potassium Chloride (K-Tab ER) 10 MEQ TABLET.ER 2 TAB PO DAILY SUPPLEMENT ( Reported) Ranolazine (Ranexa) 500 MG TAB.ER.12H 2 TAB PO BID ANGINA/CHEST PAIN ( Reported) Tamsulosin HCl (Flomax) 0.4 MG CAP.ER.24H 1 CAP PO DAILY PROSTATE (Reported) Past History Travel History Traveled to [place] past 21 day No (0) Medical History Neurological: NONE EENT: oral HSV Cardiovascular: CAD, CHF, hypertension, hyperlipidemia, PVD Respiratory: NONE Gastrointestinal: NONE Hepatic: NONE Renal: NONE Musculoskeletal: NONE Psychiatric: NONE Endocrine: diabetes Blood Disorders: NONE Cancer(s): bladder 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 Past Family/Social History Psychosocial History Who Do You Live With? spouse Services at Home: None Primary Language: Persian ETOH Use: denies use Illicit Drug Use: denies illicit drug use Functional Ability ADLs Independent: dressing, eating, toileting, bathing. Review of Systems Review of Systems Constitutional: Reports: see HPI. EENTM: Reports: no symptoms. Cardiovascular: Reports: see HPI. Respiratory: Reports: see HPI. GI: Reports: no symptoms. Genitourinary: Reports: no symptoms. Musculoskeletal: Reports: see HPI. Skin: Reports: no symptoms. Neurological/Psychological: Reports: no symptoms. Hematologic/Endocrine: Reports: no symptoms. Immunologic/Allergic: Reports: no symptoms. All Other Systems: Reviewed and Negative Exam & Diagnostic Data Last 24 Hrs of Vital Signs/I&O Vital Signs Date Time Temp Pulse Resp B/P B/P Pulse O2 O2 Flow FiO2 Mean Ox Delivery Rate 11/22 1730 134/59 11/22 1650 95 Nasal 3.0L Cannula 11/22 1508 97.7 61 20 103/54 91 Room Air Intake & Output 11/22 1600 11/22 0800 11/22 0000 Intake Total Output Total Balance Patient 63.503 kg Weight Weight Reported by Patient Measurement Method Physical Exam General Appearance Cooperative, No Acute Distress, sleepy HEENT bruising around left orbit, eyelid opens fully with no obvious ocular trauma, dry Cardiovascular irregular Lungs heavy breathing Abdomen Normal Bowel Sounds, Soft, No Tenderness, No Hepatospenomegaly Extremities No Edema, Normal Pulses, No Tenderness/Swelling Last 24 Hrs of Labs/Evens: Laboratory Tests 11/22/17 1545: Lactic Acid 3.5 H 11/22/17 1545: Anion Gap 18 H, Estimated GFR 42 L, BUN/Creatinine Ratio 31.9 H, Glucose 147 H, Calcium 9.0, Magnesium 2.2, Total Bilirubin 0.5, AST 19, ALT 37, Alkaline Phosphatase 98, Troponin I 0.04, Rpo-Q-Middvevzpmp Pept 68600 H, Total Protein 7.9, Albumin 3.9, Globulin 4.0, Albumin/Globulin Ratio 1.0 L, D-Dimer High Sensitivty 757 H, CBC w Diff NO MAN DIFF REQ, RBC 4.29 L, MCV 73.4 L, MCH 23.3 L, MCHC 31.7 L, RDW 19.2 H, MPV 9.1, Gran % 88.7 H, Lymphocytes % 4.5 L, Monocytes % 5.7, Eosinophils % 0.9, Basophils % 0.2, Absolute Granulocytes 3.2, Absolute Lymphocytes 0.2 L, Absolute Monocytes 0.2, Absolute Eosinophils 0 , Absolute Basophils 0 11/22/17 1530: pH 7.39, pCO2 38, pO2 100, HCO3 23, ABG O2 Sat (Measured) 95.0 L, Carboxyhemoglobin 0.9 L, O2 Concentration % 3L, O2 Delivery Method NC, Phlebotomy Draw Site LEFT RADIAL Microbiology 11/22 1642 NASOPHARYN: Influenza Virus A & B Rapid Smear - COMP 11/22 1633 BLOOD: Blood Culture - RECD 11/22 1545 BLOOD: Blood Culture - RECD 11/22 1511 URINE ROUT: Urine Culture - ORD Assessment/Plan Assessment: Mr. Mejia is a 77-year-old male with past medical history of CAD status post CABG, HFrEF (EF 40-45%, stage 2 diastolic dysfunction), hypertension, lipidemia, peripheral vascular disease, bilateral carotid endarterectomies, diabetes mellitus who presents with shortness of breath. On presentation, but vital signs were T 97.7, HR 61, RR 20, BP 103/54, saturating 91% on room air. Saturation improved to 95% on 3 L cannula. Laboratories are significant for white blood cell count 3.6, 88.7% grade in size , hemoglobin 10.0, MCV 73.4, potassium 6.3, BUN 51, creatinine 1.6, lactic acid 3.5, BNP 13,700, troponin 0.04, d-dimer 757, ABG 7.39/38/100. CT chest showed moderate to large pleural effusions. He will be admitted to telemetry and treated for the following problems: 1. Acute decompensated heart failure 2. Hyperkalemia 3. Lactic acidosis 4. Leukopenia 5. Microcytic anemia 6. Altered mental status 7. Acute kidney injury 8. Pleural effusion #Acute decompensated heart failure: Patient presents with elevated BNP and CT evidence of bilateral pleural effusions. -Cardiology consult -Daily weights, I's and O's -Trend lactic acid -IV furosemide -EKG/tropx3 -TTE -Pulm consult #Altered mental status: Most likely secondary to a postconcussive state. Repeat head imaging shows no intracranial processes. -Consider neurology consult -Neurochecks every 4 hours -UA/tox #Hyperkalemia: Potassium 6.3 on admission. Patient received calcium gluconate and insulin in the emergency room. -Repeat BEP at 2200 #Acute kidney injury: He does seem dry on exam. Likely prerenal azotemia in the setting of medical illnesses. -Avoid nephrotoxic medications -Continue monitor #Microcytic anemia/Leukopenia: No evidence of bleeding. -Iron studies -CTM #Chronic medical problems: -Continue home medications DVT prophylaxis with heparin Nothing by mouth Full code As Ranked By This Provider Problem List: 1. CHF (congestive heart failure) Core Measures/Misc (07/14) Acute Coronary Syndrome ACS Diagnosis: No Congestive Heart Failure Congestive Heart Failure Diagnosis Yes Last Known EF % 40 Cerebrovascular Accident CVA/TIA Diagnosis: No VTE (View Protocol) VTE Risk Factors Age>40 No Mechanical VTE Prophylaxis d/t N/A MechProphylax Ordered No VTE Pharm Prophylaxis d/t NA PharmProphylax ordered Sepsis (View protocol) Sepsis Present: No Teo Moraes MD 11/22/17 1816: Resident Review Statement Resident Statement: examined this patient, discussed with collector of internal revenue, agreed with collector of internal revenue, reviewed EMR data (avail), discussed with nursing, discussed with case mgmt, reviewed images, amended to note Other Findings: 77 yo M with pmh of CAD status post CABG, HFrEF (EF 40-45%, stage 2 diastolic dysfunction), hypertension, HLD, PVD, bilateral carotid endarterectomies, DM-2, ? h/o cancer, prsented to the ED today for shortness of breath. He has been having chest pain since 2 days, left sided, pressure, intermittant, but denies chest pain, palpitation, cough, fever, sick contacts, long travel. Much of the hsitory was contributed by his . He feels more fatigued, drowsy, and short of breath in the ED. Of note, he was here after sustaining left sided head injury by his garage door on the second day. Then, he presented with nausea, vomiting, and pain over his head with glucose, but was discharged from the ED after counseling him for any neurological changes and to follow-up with his PCP. He had come again yesterday for persistent nausea, and vomiting. He did not have any loss of consciousness or seizure-like activity, or any other focal neurological deficit, and was again discharged from the ED after evaluation. CAT scan of the head did not show any acute changes. He woke up today feeling his usual self, and spent his stay with his watching movie, but during the afternoon he was noted by his to be very weak, lethargic, drowsy and ? disoriented, which prompted the family to bring him to the emergency department again today. Examination reveals a 77-year-old gentleman, alert, not oriented, bit drowsy, bruise over his left parietal area, with intact vision, conducted sound interfering with his cardiovascular and lung sounds, bilateral swollen lower extremities, and a JVD as well. His EKG did not reveal any changes from his last time, which shows RBBB, QTc 498, first degree heart block with NH 224. He initially had received IV fluid and response to his lactic acidosis in the ED, which was later held given his clinical presentation of acute CHF and high BNP. He is being admitted in the telemetry floor for the management of following issues: #Acute on chronic congestive heart failure Patient's clinical presentation, high BNP, and radiology studies are all suggestive of acute CHF. We will administer 40 mg of IV Lasix, and repeat his BEP, lactic acid and watch very closely regarding his vitals and his hydration status. Cates catheter has been placed for I/O charting as he is critical in this regards. Echo pending. Cardiology consultation has been placed, awaiting recommendations. #Acute hypoxic respiratory failure Patient normally does not require oxygen at home, and even though his medical presentation is suggestive of congestive heart failure, his respiratory distress could be because of pneumonia as well thus we will treat him for community- acquired pneumonia while awaiting blood and sputum cultures. Pulmonary consultation will be called in the morning. #Hyperkalemia He was found to have potassium of 6.3 in the ED, and received calcium gluconate and insulin. We are repeating his BEP to make sure he doesn't have any hyperkalemia and thus predisposed to any arrhythmias. #Altered mental status Unable to a certain the cause of altered mental status at this point, could be because of hypoxia/increased work of breathing, expected to get better with diuresis and when his CHF is much under control. We'll do neuro checks overnight, and if not improving will consider neurology consultation. UA and U tox pending, as this can also cause confusion/delirium. #Diabetes mellitus Patient currently is drowsy and thus we'll keep him nothing by mouth pending a swallow evaluation. Regular insulin with Accu-Cheks ordered every 6 hours. If he passes a swallow evaluation, will change it to NovoLog and a diabetic diet. #Will continue rest of his home medications. #His home medications of antihypertensives, potassium supplement, gabapentin has been held. #Diet: NPO for now. #DVT ppx: SQ Heparin #Code status: Full code Jan DEE, [facility] 11/22/17 2238: Attending MD Review Statement Attending Statement Attending MD Statement: examined this patient, discuss w/resident/PA/BOAT RIDE OPERATOR, agreed w/resident/PA/BOAT RIDE OPERATOR, reviewed images, amended to note Attending Assessment/Plan: 77 yo M with extensive cardiac history, a vasculopath, [facility], is here for evaluation of lethargy and dyspnea. 5 days back, he was struck by a garage door to the left side of his face/head with bruising to his left eye. No LOC. Regular follow up visit with [employer] Dr. Stroud during the week was uneventful. 1 day prior, he was seen in ER for nausea, vomiting and some blurry vision. Imaging and blood work was unremarkable , so he was discharged. Today he is brought for increasing lethargy, dizziness, headache, blurring of vision and dyspnea. He also has worsening leg swelling L> R. Patient is a limited historian. PMH: HTN, CAD s/p CABG, ischemic cardiomyopathy with HFrEF, bilateral carotid endarterectomy, bladder cancer s/p intravesical treatment, recurrent UTI, T2DM, septic shock/ MODS secondary to staph aureus (needed mechanical ventilation, treated with cefazolin/vancomycin, GEORGI negative for IE), PAD s/p left femoral angioplasty c/b pseudoaneurysm with subsequent repair. Vitals: afebrile, HR 50-60's, BP 103/54 --> 122/56, sats 88% RA --> 93% on 2L. Exam: Elderly patient lethargic abut arousable to verbal commands, oriented x1, bruising over left periorbital region, no difficulty to eye opening, JVD++, but dry mucous membranes. Chest b/l reduced air entry R>L, scattered rhonchi+, LE: b /l 1+ pitting pedal edema L>R. Labs: WBC 3.6 (was 11.7 a day prior), microcytic anemia, elevated D-dimer, K 6.3 , AG 18, BUN 51, creat 1.6 (Baseline 0.6-0.7), trop neg, proBNP 35525. LFTs normal. AB.39/38/100/23. Lactic acid 3.5 --> 2.8. CTA chest/abd/pelvis: moderate to large bilateral pleural effusions R>L with associated bibasilar airspace disease, emphysema, no PE. Distended gallbladder without wall thickening or cholelithiasis. Head CT: no acute injury. EKG: appears sinus for the most part, 'p' waves are difficult to discern but are present, RBBB, 1st degree AV block. Echo (2017): EF 40-45%, stage 2 diastolic dysfunction. Assessment and plan: 1. Lethargy, dizziness, headache 2/2 recent head trauma ?post concussion syndrome 2. Acute hypoxic respiratory failure 3. Acute on chronic combined systolic and diastolic heart failure 4. Bilateral pleural effusions 5. Possible underlying community acquired pneumonia 6. Hyperkalemia with NORMA 7. Lactic acidosis - Admit to Telemetry - Fall and aspiration precautions - NPO for now until more alert - Neurochecks Q4 hour - Daily weights, strict I/O's - Cates placement - IV lasix 40 mg once, monitor diuresis - Reassess need for further diuresis in AM - Monitor renal functions and trend lactic acid - Treat hyperkalemia with insulin-dextrose, calcium gluconate and monitor EKG for changes - Serial EKG and troponin to rule out ACS - Obtain Echo and Cardio consult - Obtain Pulm consult, assess need for thoracentesis - Panculture, IV Ceftriaxone and azithro for now - Consider discontinuing antibiotics if his WBC improves and he is afebrile - Patient received IV steroids in ER, but he is not wheezing so am watching him off steroids. - Check urinalysis, urine lytes and urine tox screen - If renal functions do not improve, consider nephro consult and renal ultrasound - Hold lisinopril, metformin and potassium supplements. - Monitor for arrhythmias - Diabetes management insulin NPO SS. - Obtain swallow eval in AM - Continue flomax, ranolazine, imdur, finasteride, aspirin, plavix, carvedilol and statin. DVT ppx Hep SC. Full code.
[2017-11-22 23:03] VITALS: BP 98/50
--- NOTE | 2017-11-23 01:52 | Admission Certification ---
Admission Certification Certification Statement - As attending physician, I certify that at the time of - admission, based on clinical presentation, severity of - symptoms, need for further diagnostic testing and - therapeutic interventions, and risk of adverse outcomes - without in-hospital treatment, in my clinical assessment, - this patient requires an acute hospital stay for a minimum - of two nights or longer. I have also considered psychsocial - factors such as support system, advanced age, financial - issues, cognitive issues, and failed out-patient treatments, - past re-admission history, safety of patient, and lack of - compliance as applicable. Specific rationale supporting this admission is: Acute on chronic congestive heart failure, altered mental status, hyperkalemia, NORMA.
[2017-11-23 04:19] LABS: ABSOLUTE BASOPHIL COUNT 0 /CUMM (0.0-0.2); ABSOLUTE EOSINOPHIL COUNT 0 /CUMM (0.0-0.7); ABSOLUTE GRANULOCYTE CT 7.2 /CUMM (1.4-6.5); ABSOLUTE LYMPH COUNT 0.1 /CUMM (1.2-3.4); ABSOLUTE MONOCYTE COUNT 0.2 /CUMM (0.10-0.60); BASOPHIL % 0 % (0.0-2.0); EOSINOPHIL % 0 % (0-5); GRANULOCYTE % 96.2 % (42.2-75.2); HEMATOCRIT 29.8 % (42-52); MEAN CORPUSCULAR HGB 23.2 PG (27.0-31.0); MEAN CORPUSCULAR HGB CONC 31.3 G/DL (33.0-37.0); MEAN CORPUSCULAR VOLUME 74.1 FL (80.0-94.0); PLATELET COUNT 276 /CUMM (130-400); RBC DISTRIBUTION WIDTH 19.5 % (11.5-14.5); RED BLOOD CELL CT 4.03 /CUMM (4.70-6.10)
[2017-11-23 04:21] LABS: WHITE BLOOD CELL COUNT 7.4 /CUMM (4.8-10.8)
[2017-11-23 06:12] VITALS: BP 108/44
--- NOTE | 2017-11-23 09:41 | PN- Housestaff ---
Kojo Ludwig MD,[facility] 11/23/17 0941: Subjective Follow-up For: 1. Acute decompensated heart failure 2. Hyperkalemia 3. Lactic acidosis 4. Leukopenia 5. Microcytic anemia 6. Altered mental status 7. Acute kidney injury Tele-Events Since Last Visit: HANSR SR 1AVB PAC Subjective: Patient visited today, ill looking, cachectic male, was lying in bed comfortably in no acute distress, was alert and oriented. Reported cough and sputum, Family in the bedside, son noted that he looks more tired. No fever or chills, no shortness of breathing, no chest pain, no other events. Interventional radiology was called at [place] regarding thoracentesis, informed to hold Plavix and aspirin for 3 days before procedure, noted effusion always exist in the CAT scans for the last 3 years and there is no emergent need for thoracentesis during the weekend. Review of Systems Constitutional: Reports: no symptoms. Objective Last 24 Hrs of Vital Signs/I&O Vital Signs Date Time Temp Pulse Resp B/P B/P Pulse O2 O2 Flow FiO2 Mean Ox Delivery Rate 11/23 1848 95 Nasal 2.0L Cannula 11/23 1423 98.2 63 20 110/50 93 Nasal 2.0L Cannula 11/23 1150 Nasal 2.0L Cannula 11/23 1014 59 108/44 11/23 1014 59 108/44 11/23 0800 94 Nasal 2.0L Cannula 11/23 0612 97.7 59 22 108/44 94 Nasal Cannula 11/22 2303 97.4 56 22 98/50 93 Nasal 2.0L Cannula 11/22 2239 96 Nasal 2.0L Cannula 11/22 2115 Nasal 2.0L Cannula 11/22 2051 98.0 59 20 122/77 93 Nasal 2.0L Cannula Intake & Output 11/23 1600 11/23 0800 11/23 0000 Intake Total 600 Output Total 499 830 6037 Balance 200 -850 -1600 Intake, Oral 600 Output, Urine 403 215 8654 Patient 144 lb 140 lb Weight Weight Reported by Patient Measurement Method Physical Exam General Appearance: Alert, Oriented X3, Cooperative, No Acute Distress, Ill looking, cachectic Skin: No Significant Lesion, skin lesion over eye Skin Temp/Moisture Exam: Warm/Dry Sepsis Skin Exam (color): Normal for Ethnicity HEENT: Atraumatic, EOMI, Mucous Membr. moist/pink Cardiovascular: Regular Rate, Normal S1, Normal S2 Lungs: Decreased breathing sound in bases, crackles and ronchi Abdomen: Soft, No Tenderness Neurological: Normal Speech Extremities: No Edema Current Medications: Current Medications Sig/Damon Start time Last Medication Dose Route Stop Time Status Admin Albuterol Sulfate 3 ML BID 11/23 2199 AC 11/23 INH 1846 Aspirin Buffered 81 MG DAILY 11/22 1909 DC 11/23 PO 1014 Atorvastatin Calcium 40 MG DAILY 11/23 1000 AC 11/23 PO 1013 Azithromycin 500 MG 0500 11/24 050 AC Dextrose/Water 250 ML IV Azithromycin 500 MG 11/22 DC 11/23 Dextrose/Water 250 ML IV 0452 Calcium Gluconate 1 GM ONCE ONE 11/23 003 DC 11/23 Sodium Chloride 100 ML IV 11/23 012 0344 Ceftriaxone Sodium 0 .STK-MED ONE 11/22 2042 DC .ROUTE Ceftriaxone Sodium 1,000 MG 11/22 AC 11/22 IV 2100 Clopidogrel Bisulfate 75 MG DAILY 11/22 1909 DC 11/23 PO 1013 Dextrose 25 GM ONCE ONE 11/23 003 DC 11/23 IV 11/23 0031 0241 Finasteride 5 MG DAILY 11/22 1909 AC 11/23 PO 1013 Furosemide 40 MG DAILY 11/23 1337 AC 11/23 IV 1408 Furosemide 0 .STK-MED ONE 11/22 2042 DC IV Furosemide 40 MG ONCE ONE 11/22 2029 DC 11/22 IV 11/22 2030 2100 Gabapentin 400 MG TID 11/22 2199 CAN PO Guaifenesin/ 10 ML Q6P PRN 11/23 1615 AC 11/23 Dextromethorphan PO 1614 Heparin Sodium 5,000 UNIT Q8 11/22 2199 AC 11/23 (Porcine) SC 1408 Insulin Aspart 0 TIDAC 11/23 0800 AC 11/23 SC 1732 Insulin Human Regular 10 UNITS ONCE ONE 11/23 0030 DC 11/23 IV 11/23 0031 0147 Lorazepam 0.5 MG Q4P PRN 11/23 1015 DC IV Magnesium Oxide 400 MG BID 11/22 2199 AC 11/23 PO 1013 Melatonin 6 MG QPM 11/22 2199 AC PO Omeprazole 20 MG DAILY AC 11/23 0700 AC 11/23 PO 0602 Ranolazine 1,000 MG BID 11/22 2199 AC 11/23 PO 1014 Tamsulosin HCl 0.4 MG DAILY 11/22 1910 AC 11/23 PO 1014 Tiotropium [place] 1 PUF DAILY 11/23 1800 AC INH Last 24 Hrs of Lab/Evens Results Last 24 Hrs of Labs/Mics: Laboratory Tests 11/23/17 1234: PT 14.2 H, INR 1.36 H, APTT 32 11/23/17 0600: Sodium Cancelled, Potassium Cancelled, Chloride Cancelled, Carbon Dioxide Cancelled, Anion Gap Cancelled, BUN Cancelled, Creatinine Cancelled, BUN/ Creatinine Ratio Cancelled, CBC w Diff Cancelled, WBC Cancelled, RBC Cancelled, Hgb Cancelled, Hct Cancelled, MCV Cancelled, MCH Cancelled, MCHC Cancelled, RDW Cancelled, Plt Count Cancelled, MPV Cancelled 11/23/17 0405: Urine Opiates Screen < 100.00, Methadone Screen < 40, Barbiturate Screen < 60, Ur Phencyclidine Scrn < 6.00, Amphetamines Screen < 100, U Benzodiazepines Scrn < 85, Urine Cocaine Screen < 50, Urine Cannabis Screen < 5.00, Urine Color YEL, Urine Clarity CLEAR, Urine pH 6.0, Ur Specific [place] 1.020, Urine Protein NEG, Urine Ketones NEG, Urine Nitrite NEG, Urine Bilirubin NEG, Urine Urobilinogen 0.2, Ur Leukocyte Esterase NEG, Ur Microscopic EXAM NOT REQUIRED, Urine Hemoglobin NEG, Urine Glucose NEG 11/23/17 0300: Anion Gap 16, Estimated GFR 58 L, BUN/Creatinine Ratio 46.7 H, Lactic Acid 1.3 , Troponin I 0.04, CBC w Diff MAN DIFF ORDERED, RBC 4.03 L, MCV 74.1 L, MCH 23.2 L, MCHC 31.3 L, RDW 19.5 H, MPV 10.0, Gran % 96.2 H, Lymphocytes % 1.6 L, Monocytes % 2.2, Eosinophils % 0, Basophils % 0, Absolute Granulocytes 7.2 H , Segmented Neutrophils 89 H, Band Neutrophils 8 H, Absolute Lymphocytes 0.1 L, Lymphocytes 2 L, Monocytes 1 L, Absolute Monocytes 0.2, Absolute Eosinophils 0, Absolute Basophils 0, Platelet Estimate ADEQUATE, Polychromasia 1 +, Hypochromic-Microcytic 1+, Anisocytosis 1+, Microcytic Cells 1+, Fld Total RBCs Counted 100 11/22/172199: Sodium Cancelled, Potassium Cancelled, Chloride Cancelled, Carbon Dioxide Cancelled, Anion Gap Cancelled, BUN Cancelled, Creatinine Cancelled, BUN/ Creatinine Ratio Cancelled 11/22/172054: Lactic Acid 2.8 H 11/22/172054: Anion Gap 19 H, Estimated GFR 42 L, BUN/Creatinine Ratio 34.4 H, Troponin I 0.04 11/22/172026: Sodium Cancelled, Potassium Cancelled, Chloride Cancelled, Carbon Dioxide Cancelled, Anion Gap Cancelled, BUN Cancelled, Creatinine Cancelled, BUN/ Creatinine Ratio Cancelled, Lactic Acid Cancelled Microbiology 11/23 0405 URINE ROUT: Urine Culture - RECD 11/22 2051 LOWER RESP: Respiratory Culture - CAN Cancelled: SPECIMEN NOT RECEIVED IN LABORATORY 11/22 2051 LOWER RESP: Gram Stain - CAN Cancelled: SPECIMEN NOT RECEIVED IN LABORATORY 11/22 2026 URINE ROUT: Urine Culture - CAN Cancelled: DUPLICATE ORDER Assessment/Plan Assessment: Mr. Mejia is a 77-year-old male with past medical history of CAD status post CABG, HFrEF (EF 40-45%, stage 2 diastolic dysfunction), hypertension, lipidemia, peripheral vascular disease, bilateral carotid endarterectomies, diabetes mellitus who presents with shortness of breath. On presentation, but vital signs were T 97.7, HR 61, RR 20, BP 103/54, saturating 91% on room air. Saturation improved to 95% on 3 L cannula. Laboratories are significant for white blood cell count 3.6, 88.7% grade in size , hemoglobin 10.0, MCV 73.4, potassium 6.3, BUN 51, creatinine 1.6, lactic acid 3.5, BNP 13,700, troponin 0.04, d-dimer 757, ABG 7.39/38/100. CT chest showed moderate to large pleural effusions. He was admitted to telemetry and treated for the following problems: 1. Acute decompensated heart failure 2. Hyperkalemia 3. Lactic acidosis 4. Leukopenia 5. Microcytic anemia 6. Altered mental status 7. Acute kidney injury #Acute decompensated heart failure: Patient presents with elevated BNP and CT evidence of bilateral pleural effusions. -Cardiology consult -Daily weights, I's and O's -Trend lactic acid - lasix IV 40 Acute resp failure CHF, Pleural effusion: Consider thoracenthesis on Saturday/Saturday - Asprin and plavix held #Altered mental status: Most likely secondary to a postconcussive state. Repeat head imaging shows no intracranial processes. Improved today -Consider neurology consult -Neurochecks every 4 hours #Hyperkalemia: Potassium 6.3 on admission. Patient received calcium gluconate and insulin in the emergency room. -Repeated K 5.1 - continue monirot #Acute kidney injury: He does seem dry on exam. Likely prerenal azotemia in the setting of medical illnesses. -Avoid nephrotoxic medications -Continue monitor #Microcytic anemia/Leukopenia: No evidence of bleeding. -Iron studies -CTM #Chronic medical problems: -Continue home medications DVT prophylaxis with heparin Nothing by mouth Full code Problem List: 1. COPD (chronic obstructive pulmonary disease) 2. CHF (congestive heart failure) 3. NORMA (acute kidney injury) 4. Hyperkalemia Pain Ratin Pain Location: Continue current plan Pain Goal: Pain 4 or less Pain Plan: Continue current plan Tomorrow's Labs & Rationales: CBC BEP Malcolm Cisneros 11/23/17 1713: Attending MD Review Statement Attending Statement Attending MD Statement: examined this patient, discuss w/resident/PA/EARLY MORNING, agreed w/resident/PA/EARLY MORNING, discussed with family, reviewed EMR data (avail) Attending Assessment/Plan: pt admitted with c/c of sob over the last few days and found to have b/l pleural effusion Rt side greater than left, hypoxic in ER , LE edema, JVD and increased pro BNP and hyperkalmeia on admission. Pneumonia.-Will cont on iv abx with ceftrixone and zithromax for pneumonia. Acute hypoxic resp failure with b/l pleural effusion -Will get IR consult for drainage of pleural effusion. Will hold on antiplatelet therapy as per IR recommendations. f/u on pulm recommendations. NORMA - resolving. Acute combined systolic/diastolic chf- cardiology following. cont with lasix 40mg iv daily. f/u closely on renal functions.
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
[2017-11-23 14:23] VITALS: BP 110/50
[2017-11-23 15:10] LABS: PT 14.2 SEC (9.4-12.5); PTT 32 SEC (25-37)
[2017-11-23 22:17] VITALS: BP 106/44
[2017-11-24 07:55] LABS: ABSOLUTE BASOPHIL COUNT 0 /CUMM (0.0-0.2); ABSOLUTE EOSINOPHIL COUNT 0 /CUMM (0.0-0.7); ABSOLUTE GRANULOCYTE CT 5.9 /CUMM (1.4-6.5); ABSOLUTE LYMPH COUNT 0.5 /CUMM (1.2-3.4); ABSOLUTE MONOCYTE COUNT 0.9 /CUMM (0.10-0.60); BASOPHIL % 0 % (0.0-2.0); EOSINOPHIL % 0.3 % (0-5); GRANULOCYTE % 80.6 % (42.2-75.2); HEMATOCRIT 28.6 % (42-52); MEAN CORPUSCULAR HGB 23.5 PG (27.0-31.0); MEAN CORPUSCULAR VOLUME 73.5 FL (80.0-94.0); PLATELET COUNT 244 /CUMM (130-400); RBC DISTRIBUTION WIDTH 19.1 % (11.5-14.5); WHITE BLOOD CELL COUNT 7.3 /CUMM (4.8-10.8)
--- NOTE | 2017-11-24 09:11 | PN- Housestaff ---
HaleighchristianJimenaluiz 11/24/17 0910: Subjective Follow-up For: 1. Acute decompensated heart failure 2. Hyperkalemia 3. Lactic acidosis 4. Leukopenia 5. Microcytic anemia 6. Altered mental status 7. Acute kidney injury Complaints: no complaints Subjective: I have seen and examined the patient today morning, he continues to report some cough and sputum, no other complaints. Review of Systems Constitutional: Reports: see HPI. Objective Last 24 Hrs of Vital Signs/I&O Vital Signs Date Time Temp Pulse Resp B/P B/P Pulse O2 O2 Flow FiO2 Mean Ox Delivery Rate 11/24 1440 97.4 63 18 118/58 100 Nasal Cannula 11/24 1140 97.7 62 20 118/54 97 Nasal 2.0L Cannula 11/24 1134 62 118/54 11/24 1124 62 118/54 11/24 1110 94 Nasal 2.0L Cannula 11/24 0800 97 Nasal 2.0L Cannula 11/24 0000 Nasal 2.0L Cannula 11/23 2217 98.3 70 18 106/44 94 Nasal Cannula 11/23 2112 66 106/44 11/23 1848 95 Nasal 2.0L Cannula Intake & Output 11/24 1600 11/24 0800 11/24 0000 Intake Total 480 370 450 Output Total 1100 600 400 Balance -620 -230 50 Intake, IV 250 Intake, Oral 480 120 450 Number 0 Bowel Movements Output, Urine 1100 600 400 Physical Exam General Appearance: Alert, Oriented X3, Cooperative HEENT: Atraumatic, PERRLA Cardiovascular: Normal S1, Normal S2 Lungs: Normal Air Movement Abdomen: Normal Bowel Sounds, Soft, No Tenderness Assessment/Plan Assessment: Mr. Mejia is a 77-year-old male with past medical history of CAD status post CABG, HFrEF (EF 40-45%, stage 2 diastolic dysfunction), hypertension, lipidemia, peripheral vascular disease, bilateral carotid endarterectomies, diabetes mellitus who presents with shortness of breath. Problem list along with assessment and plan Acute decompensated heart failure: * Cardiiology consult appreciated, as the renal function has been improving, we will increase IV Lasix to 40 IV every 12. * Continue to monitor intake and output, continue daily weights * Continue to monitor basic metabolic profile. * Echo ordered today, awaited. Acute resp failure * CHF v/s Pleural effusion * Asprin and plavix held - day 2, needs to be held for 3 days before undergoing thoracocentesis. Altered mental status * Most likely secondary to a postconcussive state. * Repeat head imaging shows no intracranial processes. Hyperkalemia: * 4.6 today * ct to monitor. Acute kidney injury * Avoid nephrotoxic medications * Continue monitor DVT prophylaxis with heparin CC-3 diet. Full code Problem List: 1. 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 Pneumonia.-Will cont on iv abx with ceftrixone and zithromax for pneumonia. Acute hypoxic resp failure with b/l pleural effusion -Will get IR consult for drainage of pleural effusion. Will hold on antiplatelet therapy as per IR recommendations. f/u on pulm recommendations. Will repeat CXR in am to see if pleural effusions getting better and then decide on thoracentesis in am. NORMA - resolving. Acute combined systolic/diastolic chf- cardiology following. increase lasix to 40mg iv q12h and f/u on renal functions closely.
[2017-11-24 11:40] VITALS: BP 118/54
[2017-11-24 14:40] VITALS: BP 118/58
--- NOTE | 2017-11-24 14:53 | PN- Cardiology ---
Subjective Subjective: Shortness of breath improving. No chest pain. No palpitations. No nausea or vomiting. No lightheadedness or dizziness. No diaphoresis. Objective Vital Signs and I&Os Vital Signs Date Time Temp Pulse Resp B/P B/P Pulse O2 O2 Flow FiO2 Mean Ox Delivery Rate 11/24 1440 97.4 63 18 118/58 100 Nasal Cannula 11/24 1140 97.7 62 20 118/54 97 Nasal 2.0L Cannula 11/24 1134 62 118/54 11/24 1124 62 118/54 11/24 1110 94 Nasal 2.0L Cannula 11/24 0000 Nasal 2.0L Cannula 11/23 2217 98.3 70 18 106/44 94 Nasal Cannula 11/23 2112 66 106/44 11/23 1848 95 Nasal 2.0L Cannula 11/23 1600 Nasal 2.0L Cannula Intake & Output 11/24 1600 11/24 0800 11/24 0000 11/23 1600 11/23 0800 11/23 0000 Intake Total 480 370 450 600 Output Total 1100 600 400 333 592 1606 Balance -620 -230 50 200 -850 -1600 Intake, IV 250 Intake, Oral 480 120 450 600 Number 0 Bowel Movements Output, Urine 1100 600 400 158 850 7385 Patient 144 lb 140 lb Weight Weight Reported by Patient Measurement Method Physical Exam: Gen: The patient is in no acute distress HEENT: Normal nose, ears, and oropharynx. Pupils equal bilaterally. Conjunctiva normal. Neck: Supple with no JVD, no masses, and no thyromegaly Lungs: Bilateral rhonchi with normal respiratory effort Heart: RRR, S1, S2, 1/6 systolic murmur. 1+ peripheral edema, 1+ pulses in the lower extremities bilaterally Abdomen: Soft, nontender, no masses. No hepatomegaly. No splenomegaly Extremities: No clubbing or cyanosis. Normal muscle strength in the upper and lower extremities Skin: Normal skin turgor with no skin ulcers or lesions noted. Neuro: Cranial nerves intact. Sensation intact Psych: Alert and oriented 3 with appropriate affect Current Medications: Current Medications Sig/Damon Start time Last Medication Dose Route Stop Time Status Admin Albuterol Sulfate 3 ML BID 11/23 2200 AC 11/24 INH 1108 Aspirin Buffered 81 MG DAILY 11/22 1910 DC 11/23 PO 1014 Atorvastatin Calcium 40 MG DAILY 11/23 1000 AC 11/24 PO 1125 Azithromycin 500 MG 0500 11/24 0500 AC 11/24 Dextrose/Water 250 ML IV 0555 Ceftriaxone Sodium 1,000 MG 2030 11/22 2030 AC 11/23 IV 2107 Clopidogrel Bisulfate 75 MG DAILY 11/22 1910 DC 11/23 PO 1013 Docusate Sodium 100 MG DAILY 11/24 1155 AC 11/24 PO 1242 Finasteride 5 MG DAILY 11/22 1910 AC 11/24 PO 1125 Furosemide 40 MG DAILY 11/23 1337 AC 11/24 IV 1125 Guaifenesin 10 ML .STK-MED ONE 11/23 1610 DC PO 11/23 1611 Guaifenesin/ 10 ML Q6P PRN 11/23 1615 AC 11/23 Dextromethorphan PO 1614 Heparin Sodium 5,000 UNIT Q8 11/22 2200 AC 11/24 (Porcine) SC 0645 Insulin Aspart 0 TIDAC 11/23 0800 AC 11/24 SC 1238 Magnesium Oxide 400 MG BID 11/22 2200 AC 11/24 PO 1125 Melatonin 6 MG QPM 11/22 2200 AC 11/23 PO 2110 Omeprazole 20 MG DAILY AC 11/23 0700 AC 11/24 PO 0653 Polyethylene Glycol 17 GM DAILY 11/24 1157 AC PO Ranolazine 1,000 MG BID 11/22 2200 AC 11/24 PO 1134 Tamsulosin HCl 0.4 MG DAILY 11/22 1909 AC 11/24 PO 1124 Tiotropium [place] 1 PUF DAILY 11/23 1800 AC 11/24 INH 1124 Results Last 48 Hrs of Labs/Mics: Laboratory Tests 11/24/17 0650: Anion Gap 14, Estimated GFR > 60, BUN/Creatinine Ratio 44.5 H, CBC w Diff NO MAN DIFF REQ, RBC 3.90 L, MCV 73.5 L, MCH 23.5 L, MCHC 32.0 L, RDW 19.1 H, MPV 9.0, Gran % 80.6 H, Lymphocytes % 6.4 L, Monocytes % 12.7 H, Eosinophils % 0.3, Basophils % 0, Absolute Granulocytes 5.9, Absolute Lymphocytes 0.5 L, Absolute Monocytes 0.9 H, Absolute Eosinophils 0, Absolute Basophils 0 11/23/17 1234: PT 14.2 H, INR 1.36 H, APTT 32 11/23/17 0600: Sodium Cancelled, Potassium Cancelled, Chloride Cancelled, Carbon Dioxide Cancelled, Anion Gap Cancelled, BUN Cancelled, Creatinine Cancelled, BUN/ Creatinine Ratio Cancelled, CBC w Diff Cancelled, WBC Cancelled, RBC Cancelled, Hgb Cancelled, Hct Cancelled, MCV Cancelled, MCH Cancelled, MCHC Cancelled, RDW Cancelled, Plt Count Cancelled, MPV Cancelled 11/23/17 0405: Urine Opiates Screen < 100.00, Methadone Screen < 40, Barbiturate Screen < 60, Ur Phencyclidine Scrn < 6.00, Amphetamines Screen < 100, U Benzodiazepines Scrn < 85, Urine Cocaine Screen < 50, Urine Cannabis Screen < 5.00, Urine Color YEL, Urine Clarity CLEAR, Urine pH 6.0, Ur Specific [place] 1.020, Urine Protein NEG, Urine Ketones NEG, Urine Nitrite NEG, Urine Bilirubin NEG, Urine Urobilinogen 0.2, Ur Leukocyte Esterase NEG, Ur Microscopic EXAM NOT REQUIRED, Urine Hemoglobin NEG, Urine Glucose NEG 11/23/17 0300: Anion Gap 16, Estimated GFR 58 L, BUN/Creatinine Ratio 46.7 H, Lactic Acid 1.3 , Troponin I 0.04, CBC w Diff MAN DIFF ORDERED, RBC 4.03 L, MCV 74.1 L, MCH 23.2 L, MCHC 31.3 L, RDW 19.5 H, MPV 10.0, Gran % 96.2 H, Lymphocytes % 1.6 L, Monocytes % 2.2, Eosinophils % 0, Basophils % 0, Absolute Granulocytes 7.2 H , Segmented Neutrophils 89 H, Band Neutrophils 8 H, Absolute Lymphocytes 0.1 L, Lymphocytes 2 L, Monocytes 1 L, Absolute Monocytes 0.2, Absolute Eosinophils 0, Absolute Basophils 0, Platelet Estimate ADEQUATE, Polychromasia 1 +, Hypochromic-Microcytic 1+, Anisocytosis 1+, Microcytic Cells 1+, Fld Total RBCs Counted 100 11/22/170: Sodium Cancelled, Potassium Cancelled, Chloride Cancelled, Carbon Dioxide Cancelled, Anion Gap Cancelled, BUN Cancelled, Creatinine Cancelled, BUN/ Creatinine Ratio Cancelled 11/22/172054: Lactic Acid 2.8 H 11/22/172054: Anion Gap 19 H, Estimated GFR 42 L, BUN/Creatinine Ratio 34.4 H, Troponin I 0.04 01/26/18 2027: Sodium Cancelled, Potassium Cancelled, Chloride Cancelled, Carbon Dioxide Cancelled, Anion Gap Cancelled, BUN Cancelled, Creatinine Cancelled, BUN/ Creatinine Ratio Cancelled, Lactic Acid Cancelled 11/22/17 1816: Lactic Acid Cancelled 11/22/17 1545: Lactic Acid 3.5 H 11/22/17 1545: Anion Gap 18 H, Estimated GFR 42 L, BUN/Creatinine Ratio 31.9 H, Glucose 147 H, Calcium 9.0, Magnesium 2.2, Iron 31 L, TIBC 390, Ferritin 26.8, Total Bilirubin 0.5, AST 19, ALT 37, Alkaline Phosphatase 98, Troponin I 0.04, Pro-B- Natriuretic Pept 45551 H, Total Protein 7.9, Albumin 3.9, Globulin 4.0, Albumin /Globulin Ratio 1.0 L, Prolactin 30.5 H, D-Dimer High Sensitivty 757 H, CBC w Diff NO MAN DIFF REQ, RBC 4.29 L, MCV 73.4 L, MCH 23.3 L, MCHC 31.7 L, RDW 19.2 H, MPV 9.1, Gran % 88.7 H, Lymphocytes % 4.5 L, Monocytes % 5.7, Eosinophils % 0.9, Basophils % 0.2, Absolute Granulocytes 3.2, Absolute Lymphocytes 0.2 L, Absolute Monocytes 0.2, Absolute Eosinophils 0, Absolute Basophils 0 11/22/17 1530: pH 7.39, pCO2 38, pO2 100, HCO3 23, ABG O2 Sat (Measured) 95.0 L, Carboxyhemoglobin 0.9 L, O2 Concentration % 3L, O2 Delivery Method NC, Phlebotomy Draw Site LEFT RADIAL Microbiology 11/22 1642 NASOPHARYN: Influenza Virus A & B Rapid Smear - COMP Assessment/Plan Assessment/Plan Assessment: 1. CAD, status post CABG 2. Hypertension 3. Peripheral arterial disease 4. Diabetes mellitus 5. Possible community acquired pneumonia 6. Possible acute on chronic heart failure with reduced ejection fraction 7. Hyperkalemia with acute kidney injury Plan: * Given improvement in renal function, would increase Lasix to 40 mg IV every 12 hours * Monitor input and output with daily weights * Check basic metabolic profile daily * Antibiotic therapy for possible pneumonia * Would consider thoracentesis for bilateral pleural effusions * Echocardiogram Continue telemetry? Yes
[2017-11-24 23:02] VITALS: BP 106/70
[2017-11-25 06:35] VITALS: BP 132/64
--- NOTE | 2017-11-25 07:35 | PN- Housestaff ---
See Addendum Subjective Follow-up For: CHf, pleural effusion, CAP Tele-Events Since Last Visit: SR, 60-70 Subjective: No overnight events. His mentation has much improved from admission, alert and orientedx3. He feels good this morning, no ehadache, CP, SOB, or other complaints. Review of Systems Constitutional: Reports: no symptoms. EENTM: Reports: no symptoms. Cardiovascular: Reports: no symptoms. Respiratory: Reports: no symptoms. Gastrointestinal: Reports: no symptoms. Genitourinary: Reports: no symptoms. Musculoskeletal: Reports: no symptoms. Skin: Reports: no symptoms. Neurological/Psychological: Reports: no symptoms. Hematologic/Endocrine: Reports: no symptoms. Immunologic/Allergic: Reports: no symptoms. Objective Last 24 Hrs of Vital Signs/I&O Vital Signs Date Time Temp Pulse Resp B/P B/P Pulse O2 O2 Flow FiO2 Mean Ox Delivery Rate 11/25 0635 98.6 62 18 132/64 92 Nasal 2.0L Cannula 11/25 0000 Nasal 2.0L Cannula 11/24 2352 66 116/50 11/24 2302 98.2 66 20 106/70 96 11/24 1910 95 Nasal 2.0L Cannula 11/24 1600 94 Nasal 3.0L Cannula 11/24 1440 97.4 63 18 118/58 100 Nasal Cannula 11/24 1140 97.7 62 20 118/54 97 Nasal 2.0L Cannula 11/24 1134 62 118/54 11/24 1124 62 118/54 11/24 1110 94 Nasal 2.0L Cannula 11/24 0800 97 Nasal 2.0L Cannula Intake & Output 11/25 0800 11/25 0000 11/24 1600 Intake Total 440 480 Output Total 1950 1100 Balance -1510 -620 Intake, IV 40 Intake, Oral 400 480 Number 0 Bowel Movements Output, Urine 1950 1100 Physical Exam General Appearance: Alert, Oriented X3, Cooperative, No Acute Distress Cardiovascular: Regular Rate, Normal S1, Normal S2 Lungs: heavy breathing Abdomen: Normal Bowel Sounds, Soft, No Tenderness Extremities: No Edema Current Medications: Current Medications Sig/Damon Start time Last Medication Dose Route Stop Time Status Admin Acetaminophen 650 MG ONCE ONE 11/24 2199 DC 11/24 PO 11/24 2201 215 Albuterol Sulfate 3 ML BID 11/23 2199 AC 11/24 INH 1910 Atorvastatin Calcium 40 MG DAILY 11/23 1000 AC 11/24 PO 1125 Azithromycin 500 MG 0500 11/24 0500 AC 11/25 Dextrose/Water 250 ML IV 0442 Ceftriaxone Sodium 1,000 MG 2030 11/22 2030 AC 11/24 IV 2121 Docusate Sodium 100 MG DAILY 11/24 1155 AC 11/24 PO 1242 Finasteride 5 MG DAILY 11/22 1910 AC 11/24 PO 1125 Furosemide 40 MG Q12 11/24 2200 AC 11/24 IV 2122 Furosemide 40 MG DAILY 11/23 1337 DC 11/24 IV 1125 Guaifenesin/ 10 ML Q6P PRN 11/23 1615 AC 11/24 Dextromethorphan PO 2121 Heparin Sodium 5,000 UNIT Q8 11/22 2200 AC 11/24 (Porcine) SC 2122 Insulin Aspart 0 TIDAC 11/23 0800 DC 11/24 SC 1238 Insulin Human Regular 0 Q6 11/25 0703 AC SC Magnesium Oxide 400 MG BID 11/22 2200 AC 11/24 PO 2123 Melatonin 6 MG QPM 11/22 2200 AC 11/24 PO 2123 Omeprazole 20 MG DAILY AC 11/23 0700 AC 11/24 PO 0653 Polyethylene Glycol 17 GM DAILY 11/24 1157 AC PO Ranolazine 1,000 MG BID 11/22 2200 AC 11/24 PO 2352 Tamsulosin HCl 0.4 MG DAILY 11/22 1910 AC 11/24 PO 1124 Tiotropium [place] 1 PUF DAILY 11/23 1800 AC 11/24 INH 1124 Last 24 Hrs of Lab/Evens Results Last 24 Hrs of Labs/Mics: Laboratory Tests 11/25/17 0708: Sodium Pending, Potassium Pending, Chloride Pending, Carbon Dioxide Pending, Anion Gap Pending, BUN Pending, Creatinine Pending, BUN/Creatinine Ratio Pending , CBC w Diff Pending, WBC Pending, RBC Pending, Hgb Pending, Hct Pending, MCV Pending, MCH Pending, MCHC Pending, RDW Pending, Plt Count Pending, MPV Pending Microbiology 11/24 1899 LOWER RESP: Respiratory Culture - RES 11/24 1899 LOWER RESP: Gram Stain - RES Assessment/Plan Assessment: Mr. Mejia is a 77-year-old male with past medical history of CAD status post CABG, HFrEF (EF 40-45%, stage 2 diastolic dysfunction), hypertension, lipidemia, peripheral vascular disease, bilateral carotid endarterectomies, diabetes mellitus who presents with shortness of breath. Problem List: 1. Acute hypoxic respiratory failure 2. Hyperkalemia 3. Lactic acidosis 4. Leukopenia 5. Microcytic anemia 6. Altered mental status 7. Acute kidney injury 8. Pleural effusion #Acute hypoxic respiratory failure: Patient presents with elevated BNP and CT evidence of bilateral pleural effusions. Cardiology was consulted and thinks this may be CHF versus pneumonia. His breathing is improved and he has remained afebrile. Leukopenia has improved. EKG and troponins 3 were negative. Cultures are growing gram-negative rods. -Appreciate cardiology recommendations -Daily weights, I's and O's -IV furosemide -TTE -Appreciate pulmonology recommendations -Continue ceftriaxone. Stop azithromycin -Possible IR thoracocentesis today #Altered mental status: Most likely secondary to a postconcussive state. Repeat head imaging showed no intracranial processes. His mental status has since improved and is alert and oriented 3 now. UA and urine toxicology were negative. -Continue to monitor #Hyperkalemia: Potassium 6.3 on admission. Patient received calcium gluconate and insulin in the emergency room. Potassium is since normalized. -Continue to monitor #Acute kidney injury: Resolved. Likely prerenal azotemia in the setting of acute medical illness. -Continue monitor #Microcytic anemia: No evidence of bleeding. Iron was low with normal TIBC and ferritin. -Ferrous sulfate supplement -Stool guaiac #Chronic medical problems: -Continue home medications DVT prophylaxis with heparin Consistent carbohydrate 3 diet Full code Problem List: 1. CHF (congestive heart failure) Pain Ratin Pain Location: no pain Pain Goal: Remain pain free Pain Plan: see a/p Tomorrow's Labs & Rationales: cbc, bep
[2017-11-25 08:36] LABS: ABSOLUTE BASOPHIL COUNT 0 /CUMM (0.0-0.2); ABSOLUTE EOSINOPHIL COUNT 0.1 /CUMM (0.0-0.7); ABSOLUTE GRANULOCYTE CT 6.8 /CUMM (1.4-6.5); ABSOLUTE LYMPH COUNT 0.4 /CUMM (1.2-3.4); ABSOLUTE MONOCYTE COUNT 0.8 /CUMM (0.10-0.60); BASOPHIL % 0.1 % (0.0-2.0); EOSINOPHIL % 0.9 % (0-5); GRANULOCYTE % 83.6 % (42.2-75.2); HEMATOCRIT 29.1 % (42-52); MEAN CORPUSCULAR HGB 23.2 PG (27.0-31.0); MEAN CORPUSCULAR HGB CONC 31.6 G/DL (33.0-37.0); MEAN CORPUSCULAR VOLUME 73.5 FL (80.0-94.0); MEAN PLATELET VOLUME 9.2 FL (7.4-10.4); PLATELET COUNT 237 /CUMM (130-400); RBC DISTRIBUTION WIDTH 19.4 % (11.5-14.5); RED BLOOD CELL CT 3.96 /CUMM (4.70-6.10); WHITE BLOOD CELL COUNT 8.1 /CUMM (4.8-10.8)
--- NOTE | 2017-11-25 09:38 | RADIOLOGY REPORT ---
EXAMINATION: XR CHEST CLINICAL INFORMATION: Pleural effusion COMPARISON: Chest CTs from 11/22/2017 and 01/28/2017. Chest x-ray from 01/28/2017. TECHNIQUE: Frontal view of the chest FINDINGS: The thoracic aorta is stable with calcification of the arch. 2 median sternotomy wires are intact and unchanged without fracture. The heart size is within normal limits for technique. There is blunting of both costophrenic angles, right more than left, with associated bibasilar airspace opacification. Mineralization in the lung bases bilaterally is better visualized on CT, not convincingly resolved on the current images. Irregular lucency within the mid to upper lungs is compatible with underlying emphysema as is been previously noted. Airspace opacification in the bases is similar to 11/22/2017, progressive from 01/28/2017. No pneumothorax. No acute osseous abnormality is visualized. IMPRESSION: Stable appearance of the chest from 11/22/2017 across modalities with moderate right greater than left pleural effusions and associated lower lobe airspace opacification superimposed on underlying emphysema.
--- NOTE | 2017-11-25 09:49 | ECHOCARDIOGRAM REPORT ---
CAITY BELL Age: 77 : 1940 Gender: M Exam Date: 11/24/2017 10:12 Exam Location: 1 [address] Ht (in): 68 Wt (lb): 140 BSA: 1.74 BP: 106 / 44 Ordering Physician: Teo Moraes MD Referring Physician: Richard Lund MD Technologist: Rosita Pryor [facility] Room Number: 189-01 Indications: HEART FAILURE Rhythm: Technical Quality: FINDINGS Left Ventricle Normal size left ventricle. Borderline left ventricular hypertrophy. Left ventricular ejection fraction is estimated at 35-40 %. Severe inferior and posterior hypokinesis. Right Ventricle Reduced right ventricular global systolic function. Right Atrium Normal right atrial size. Left Atrium Mild left atrial dilatation. Mitral Valve Mitral valve thickened. Mild mitral annular calcification. Mild mitral regurgitation. Aortic Valve Diffuse thickening (sclerosis) of the aortic valve cusps without reduced excursion. No aortic stenosis. Mild aortic regurgitation. Tricuspid Valve Tricuspid valve not well visualized, grossly normal. Mild tricuspid regurgitation. Right ventricular systolic pressure estimated to be elevated at 58 mmHg. Pulmonic Valve Pulmonic valve not well visualized, grossly normal. Mild pulmonic regurgitation. Pericardium Left pleural effusion is seen. Great Vessels Normal size aortic root. CONCLUSIONS Normal size left ventricle. Borderline left ventricular hypertrophy. Left ventricular ejection fraction is estimated at 35-40 %. Severe inferior and posterior hypokinesis. Mild left atrial dilatation. Mild mitral regurgitation. Mild tricuspid regurgitation. Right ventricular systolic pressure estimated to be elevated at 58 mmHg. Mild pulmonic regurgitation. Left pleural effusion is seen. Richard Lund M.D. (Electronically Signed) Final Date: 25 November 2017 09:48 MEASUREMENTS (Male / Female) Normal Values 2D ECHO LV Diastolic Diameter PLAX 5.4 cm 4.2 - 5.9 / 3.9 - 5.3 cm LV Systolic Diameter PLAX 4.5 cm 2.1 - 4.0 cm LV Fractional Shortening PLAX 16.7 % 25 - 46 % LV Ejection Fraction 2D Teich 34.6 % IVS Diastolic Thickness 1.2 cm LVPW Diastolic Thickness 1.1 cm LV Relative Wall Thickness 0.4 RV Internal Dim ED PLAX 4.0 cm 1.9 - 3.8 cm LVOT Diameter 1.9 cm Aortic Root Diameter 3.2 cm LA Systolic Diameter LX 5.1 cm 3.0 - 4.0 / 2.7 - 3.8 cm LA Volume 69.0 cm 18 - 58 / 22 - 52 cm Ascending Aorta Diameter 2.9 cm DOPPLER AV Peak Velocity 119.0 cm/s AV Peak Gradient 5.7 mmHg AV Mean Velocity 76.6 cm/s AV Mean Gradient 3.0 mmHg AV Velocity Time Integral 24.1 cm LVOT Peak Velocity 96.9 cm/s LVOT Peak Gradient 3.8 mmHg LVOT Mean Velocity 60.2 cm/s LVOT Mean Gradient 2.0 mmHg LVOT Velocity Time Integral 18.4 cm LVOT Stroke Volume 52.2 cm AV Area Cont Eq vti 2.2 cm AV Area Cont Eq pk 2.3 cm MV Peak Velocity 137.0 cm/s MV Peak Gradient 7.5 mmHg MV Mean Velocity 63.4 cm/s MV Mean Gradient 2.0 mmHg Mitral E Point Velocity 128.0 cm/s Mitral A Point Velocity 47.7 cm/s Mitral E to A Ratio 2.7 MV PHT Velocity 143.0 cm/s MV Deceleration Arthur 512.0 cm/s MV Pressure Half Time 83.8 ms MV Area PHT 2.6 cm MV Deceleration Time 235.0 ms TR Peak Velocity 345.0 cm/s TR Peak Gradient 47.6 mmHg Right Atrial Pressure 10.0 mmHg Pulmonary Artery Systolic Pressu 57.6 mmHg Right Ventricular Systolic Press 57.6 mmHg PV Peak Velocity 88.2 cm/s PV Peak Gradient 3.1 mmHg PV Mean Velocity 60.1 cm/s PV Mean Gradient 2.0 mmHg PV Velocity Time Integral 18.1 cm LV E' Lateral Velocity 7.2 cm/s Mitral E to LV E' Lateral Ratio 17.7 LV E' Septal Velocity 3.3 cm/s Mitral E to LV E' Septal Ratio 39.0
--- NOTE | 2017-11-25 11:18 | PN- Cardiology ---
Subjective Subjective: Shortness of breath improving. No chest pain. No palpitations. No nausea or vomiting. No lightheadedness or dizziness. No diaphoresis. Objective Vital Signs and I&Os Vital Signs Date Time Temp Pulse Resp B/P B/P Pulse O2 O2 Flow FiO2 Mean Ox Delivery Rate 11/25 1027 95 Nasal 2.0L Cannula 11/25 0828 62 124/62 11/25 0827 62 124/62 11/25 0800 Nasal 2.0L Cannula 11/25 0635 98.6 62 18 132/64 92 Nasal 2.0L Cannula 11/25 0000 Nasal 2.0L Cannula 11/24 2352 66 116/50 11/24 2302 98.2 66 20 106/70 96 11/24 1910 95 Nasal 2.0L Cannula 11/24 1600 94 Nasal 3.0L Cannula 11/24 1440 97.4 63 18 118/58 100 Nasal Cannula 11/24 1140 97.7 62 20 118/54 97 Nasal 2.0L Cannula 11/24 1134 62 118/54 11/24 1124 62 118/54 Intake & Output 11/25 1600 11/25 0800 11/25 0000 11/24 1600 11/24 0800 11/24 0000 Intake Total 250 440 480 370 450 Output Total 525 1950 1100 600 400 Balance -275 -1510 -620 -230 50 Intake, IV 250 40 250 Intake, Oral 0 400 480 120 450 Number 0 0 Bowel Movements Output, Urine 525 1950 1100 600 400 Physical Exam: Gen: The patient is in no acute distress HEENT: Normal nose, ears, and oropharynx. Pupils equal bilaterally. Conjunctiva normal. Neck: Supple with no JVD, no masses, and no thyromegaly Lungs: Bilateral rhonchi with normal respiratory effort Heart: RRR, S1, S2, 1/6 systolic murmur. 1+ peripheral edema, 1+ pulses in the lower extremities bilaterally Abdomen: Soft, nontender, no masses. No hepatomegaly. No splenomegaly Extremities: No clubbing or cyanosis. Normal muscle strength in the upper and lower extremities Skin: Normal skin turgor with no skin ulcers or lesions noted. Neuro: Cranial nerves intact. Sensation intact Current Medications: Current Medications Sig/Damon Start time Last Medication Dose Route Stop Time Status Admin Acetaminophen 650 MG ONCE ONE 11/24 2199 DC 11/24 PO 01/28 2201 2150 Albuterol Sulfate 3 ML BID 11/23 2200 AC 11/25 INH 1025 Atorvastatin Calcium 40 MG DAILY 11/23 1000 AC 11/25 PO 0828 Azithromycin 250 MG DAILY 11/26 1000 CAN PO Azithromycin 500 MG 0500 11/24 0500 DC 11/25 Dextrose/Water 250 ML IV 0442 Ceftriaxone Sodium 1,000 MG 2030 11/22 2030 AC 11/24 IV 2121 Docusate Sodium 100 MG DAILY 11/24 1155 AC 11/25 PO 0828 Ferrous Sulfate 325 MG DAILY 11/25 1000 AC 11/25 PO 1044 Finasteride 5 MG DAILY 11/22 1910 AC 11/25 PO 0828 Furosemide 40 MG Q12 11/24 2200 AC 11/25 IV 0825 Furosemide 40 MG DAILY 11/23 1337 DC 11/24 IV 1125 Guaifenesin/ 10 ML Q6P PRN 11/23 1615 AC 11/24 Dextromethorphan PO 2121 Heparin Sodium 5,000 UNIT Q8 11/22 2200 DC 11/24 (Porcine) SC 2122 Insulin Aspart 0 TIDAC 11/25 1200 AC 11/25 SC 0825 Insulin Aspart 0 TIDAC 11/23 0800 DC 11/24 SC 1238 Insulin Human Regular 0 Q6 11/25 0703 DC HI Magnesium Oxide 400 MG BID 11/22 2199 AC 11/25 PO 0828 Melatonin 6 MG QPM 11/22 220 AC 11/24 PO 2123 Omeprazole 20 MG DAILY AC 11/23 0700 AC 11/24 PO 0653 Polyethylene Glycol 17 GM DAILY 11/24 1157 AC 11/25 PO 0826 Ranolazine 1,000 MG BID 11/22 2199 AC 11/25 PO 0827 Tamsulosin HCl 0.4 MG DAILY 11/22 191 AC 11/25 PO 0828 Tiotropium [place] 1 PUF DAILY 11/23 1800 AC 11/25 INH 0829 Results Last 48 Hrs of Labs/Mics: Laboratory Tests 11/25/17 0708: Anion Gap 15, Estimated GFR > 60, BUN/Creatinine Ratio 38.8 H, CBC w Diff NO MAN DIFF REQ, RBC 3.96 L, MCV 73.5 L, MCH 23.2 L, MCHC 31.6 L, RDW 19.4 H, MPV 9.2, Gran % 83.6 H, Lymphocytes % 5.0 L, Monocytes % 10.4 H, Eosinophils % 0.9, Basophils % 0.1, Absolute Granulocytes 6.8 H, Absolute Lymphocytes 0.4 L, Absolute Monocytes 0.8 H, Absolute Eosinophils 0.1, Absolute Basophils 0 11/24/17 0650: Anion Gap 14, Estimated GFR > 60, BUN/Creatinine Ratio 44.5 H, CBC w Diff NO MAN DIFF REQ, RBC 3.90 L, MCV 73.5 L, MCH 23.5 L, MCHC 32.0 L, RDW 19.1 H, MPV 9.0, Gran % 80.6 H, Lymphocytes % 6.4 L, Monocytes % 12.7 H, Eosinophils % 0.3, Basophils % 0, Absolute Granulocytes 5.9, Absolute Lymphocytes 0.5 L, Absolute Monocytes 0.9 H, Absolute Eosinophils 0, Absolute Basophils 0 11/23/17 1234: PT 14.2 H, INR 1.36 H, APTT 32 Recent Imaging Studies: Chest x-ray: Stable appearance of the chest from 11/22/2017 across modalities with moderate right greater than left pleural effusions and associated lower lobe airspace opacification superimposed on underlying emphysema. Echocardiogram 11/25/17: Normal size left ventricle. Borderline left ventricular hypertrophy. Left ventricular ejection fraction is estimated at 35-40 %. Severe inferior and posterior hypokinesis. Mild left atrial dilatation. Mild mitral regurgitation. Mild tricuspid regurgitation. Right ventricular systolic pressure estimated to be elevated at 58 mmHg. Mild pulmonic regurgitation. Left pleural effusion is seen. Assessment/Plan Assessment/Plan Assessment: 1. CAD, status post CABG 2. Hypertension 3. Peripheral arterial disease 4. Diabetes mellitus 5. Possible community acquired pneumonia 6. Possible acute on chronic heart failure with reduced ejection fraction 7. Hyperkalemia with acute kidney injury Plan: * Continue Lasix 40 mg's IV every 12 hours * Monitor input and output with daily weights * Check basic metabolic profile daily * Antibiotic therapy for possible pneumonia * Would consider thoracentesis for bilateral pleural effusions Continue telemetry? Yes
[2017-11-25 14:53] VITALS: BP 134/62
--- NOTE | 2017-11-25 16:27 | ULTRASOUND REPORT ---
PROCEDURE: Thoracentesis CLINICAL INFORMATION: Pleural Effusion COMPARISON: Same day chest x-ray and CTA chest 11/22/2017 TECHNIQUE: Indirect ultrasound guided thoracentesis using a 5 Welsh Yueh catheter. FINDINGS: Informed consent was obtained from the patient prior to the procedure. During this process, the procedure alternatives were explained, along with the intended outcome and benefits. The risks of the procedure, as well as the risk of not doing the procedure, was discussed. The patient was given the opportunity to ask questions regarding the procedure and appeared competent to make medical decisions. A signed consent form which documents this discussion was placed in the medical record. A timeout procedure was performed. Ultrasound evaluation of the chest for pleural fluid was performed. A large pleural effusion is noted on the right and left side (right slightly larger than left). The decision was made to perform a right-sided thoracentesis today and potentially a left-sided thoracentesis tomorrow. Using standard interventional and sterile techniques, lidocaine was used to anesthetize the region. A 5 Welsh Yueh catheter was introduced into the right pleural fluid using standard safety needle technique. Approximately 1550 mL of jermaine fluid was removed into the Vacutainer bottles. The catheter was then removed. Good hemostasis was achieved. The patient tolerated the procedure well. A sterile dressing was placed. The patient was discharged from the department in stable condition. Patient scheduled for post procedure followup x-ray. Fluid sent for requested analysis. COMPLICATIONS: None. IMPRESSION: Successful ultrasound-guided right-sided thoracentesis yielding 1550 mL's of fluid. Procedure discussed with adjunct faculty for medical terminology Jimbo Harris. A left-sided thoracentesis can be performed tomorrow if the patient remains clinically stable.
--- NOTE | 2017-11-25 16:32 | RADIOLOGY REPORT ---
EXAMINATION:\H\ \N\XR CHEST CLINICAL INFORMATION: Status post right-sided thoracentesis COMPARISON: Chest x-ray same day at 8:55 AM TECHNIQUE: Frontal view of the chest was obtained. FINDINGS: Interval improvement in aeration of the right hemithorax with a residual moderate right-sided pleural effusion. No right-sided pneumothorax. Moderate left-sided pleural effusion with overlying airspace disease is stable from this morning. IMPRESSION: No right-sided pneumothorax. Right-sided pleural effusion is smaller but persistent. Stable moderate left-sided pneumothorax.
[2017-11-25 22:21] VITALS: BP 132/58
[2017-11-26 05:46] VITALS: BP 120/41
--- NOTE | 2017-11-26 07:38 | PN- Housestaff ---
See Addendum Subjective Follow-up For: Acute hypoxic respiratory failure Pleural Effusion Tele-Events Since Last Visit: Sinus bradycardia Sinus rhythm HR: 57-64 Subjective: Patient was seen and examined today. States that he is doing well. Has no complaints. States his breathing is much better. Denies any pain after R thoracentesis. Review of Systems Constitutional: Reports: no symptoms. Cardiovascular: Reports: no symptoms. Respiratory: Reports: no symptoms. Gastrointestinal: Reports: no symptoms. Genitourinary: Reports: no symptoms. Musculoskeletal: Reports: no symptoms. Objective Last 24 Hrs of Vital Signs/I&O Vital Signs Date Time Temp Pulse Resp B/P B/P Pulse O2 O2 Flow FiO2 Mean Ox Delivery Rate 11/26 203 96 Nasal 2.0L Cannula 11/26 1558 Nasal 2.0L Cannula 11/26 1413 98.3 58 20 120/60 98 Nasal 2.0L Cannula 11/26 0958 96 Nasal 2.0L Cannula 11/26 0930 66 124/52 11/26 0930 66 124/52 11/26 0800 Nasal 2.0L Cannula 11/26 0546 98.1 63 24 120/41 94 11/26 0000 95 Nasal 2.0L Cannula 11/25 2221 97.9 66 18 132/58 96 Nasal Cannula 11/25 2144 68 140/68 Intake & Output 11/26 1600 11/26 0800 11/26 0000 Intake Total 410 558 Output Total 500 750 Balance -90 -192 Intake, IV 10 Intake, Oral 400 558 Output, Urine 500 750 Patient 141 lb Weight Weight Bed scale Measurement Method Physical Exam General Appearance: Alert, Cooperative, No Acute Distress HEENT: Mucous Membr. moist/pink, area of left periorbital echymosis Cardiovascular: Regular Rate, Normal S1, Normal S2 Lungs: crackles of the left side, decreased breath sounds on the right lung base Abdomen: Normal Bowel Sounds, Soft, No Tenderness Extremities: No Clubbing, No Cyanosis, No Edema, Normal Pulses, No Tenderness/ Swelling Current Medications: Current Medications Sig/Damon Start time Last Medication Dose Route Stop Time Status Admin Albuterol Sulfate 3 ML BID 11/23 2199 AC 11/26 INH 2034 Atorvastatin Calcium 40 MG DAILY 11/23 1000 AC 11/26 PO 929 Ceftriaxone Sodium 1,000 MG 2030 11/22 2029 DC 11/25 IV 2144 Docusate Sodium 100 MG DAILY 11/24 1155 AC 11/26 PO 0931 Ferrous Sulfate 325 MG DAILY 11/25 1000 AC 11/26 PO 0931 Finasteride 5 MG DAILY 11/22 191 AC 11/26 PO 0930 Furosemide 40 MG 0630,1630 11/27 0630 AC IV Furosemide 40 MG Q12H 11/25 1800 DC 11/26 IV 1645 Guaifenesin/ 10 ML Q6P PRN 11/23 1615 AC 11/24 Dextromethorphan PO 2121 Insulin Aspart 0 TIDAC 11/25 1200 AC 11/26 SC 1130 Lidocaine 1 ML .STK-MED ONE 11/26 1605 DC ID 11/26 1606 Magnesium Oxide 400 MG BID 11/220 AC 11/26 PO 0930 Melatonin 6 MG QPM 11/22 2200 AC 11/25 PO 2143 Omeprazole 20 MG DAILY AC 11/23 0700 AC 11/26 PO 0637 Polyethylene Glycol 17 GM DAILY 11/24 1157 AC 11/26 PO 0931 Potassium Chloride 40 MEQ ONCE ONE 11/26 1630 DC 11/26 PO 11/26 1631 1646 Ranolazine 1,000 MG BID 11/22 2200 AC 11/26 PO 0930 Tamsulosin HCl 0.4 MG DAILY 11/22 1910 AC 11/26 PO 0930 Tiotropium [place] 1 PUF DAILY 11/23 1800 AC 11/26 INH 0931 Last 24 Hrs of Lab/Evens Results Last 24 Hrs of Labs/Mics: Laboratory Tests 11/26/17 1540: Pleural pH 7.45 11/26/17 1540: Fluid WBC 450 H, Fld Total RBCs Counted 4913 H 11/26/17 1540: Lymphocytes 82, % Normal PMNs 4, Misc Hematology Test , Phlebotomy Draw Site LEFT THORACENTESIS, Fluid Glucose 123, Fluid Total Protein 2.9, Fluid Albumin 1.3, Fluid LDH 277, Fluid Amylase < 30 11/26/17 0628: Anion Gap 14, Estimated GFR > 60, BUN/Creatinine Ratio 33.3 H, Lactate Dehydrogenase 296 L, CBC w Diff NO MAN DIFF REQ, RBC 4.31 L, MCV 73.4 L, MCH 23.0 L, MCHC 31.4 L, RDW 19.1 H, MPV 8.8, Gran % 83.1 H, Lymphocytes % 5.9 L, Monocytes % 10.0 H, Eosinophils % 0.9, Basophils % 0.1, Absolute Granulocytes 7.1 H, Absolute Lymphocytes 0.5 L, Absolute Monocytes 0.9 H, Absolute Eosinophils 0.1, Absolute Basophils 0 Microbiology 11/26 1540 BODY FLUID: Body Fluid Culture - RECD 11/26 1540 BODY FLUID: Gram Stain - RECD SPUTUM CULTURE: Procedure Result > GRAM STAIN Final 11/25/17-0949 WHITE BLOOD CELLS FEW SQUAMOUS CELLS FEW GRAM POSITIVE COCCI MANY GRAM POSITIVE RODS MODERATE OTHER MANY BUDDING YEAST > LOWER RESPIRATORY CULTURE Preliminary 11/26/17-1024 Mixed zoey after 2 days with Light growth of: 1. HAFNIA ALVEI Moderate growth of: 2. YEAST 3. ENTEROCOCCUS Sensitivity to follow 1. HAFNIA ALVEI RX AB ------ -- AMPICILLIN R CEFAZOLIN R AMOXICILLIN/CLAVULINIC ACID R AMPICILLIN/SULBACTAM R CEFOXITIN R CEFTAZIDIME S CEFTRIAXONE S CIPROFLOXACIN S GENTAMICIN S TRIMETHOPRIM/SULFAMETHOXAZOLE S Assessment/Plan Assessment: Mr. Mejia is a 77-year-old male with past medical history of CAD status post CABG, HFrEF (EF 40-45%, stage 2 diastolic dysfunction), hypertension, lipidemia, peripheral vascular disease, bilateral carotid endarterectomies, diabetes mellitus who presents with shortness of breath. Problem List: 1. Acute hypoxic respiratory failure 2. Hyperkalemia - resolved 3. Lactic acidosis 4. Leukopenia 5. Microcytic anemia 6. Altered mental status 7. Acute kidney injury - resolved 8. Pleural effusion #Acute hypoxic respiratory failure: Patient presents with elevated BNP and CT evidence of bilateral pleural effusions. Cardiology was consulted and thinks this may be CHF versus pneumonia. His breathing is improved and he has remained afebrile. Leukopenia has improved. EKG and troponins 3 were negative. Cultures are growing Havnei Marcelle sensitive to ceftriaxone and enterococcus - sensitivities pending. Patient had a R sided thoracentesis yesterday. * Cardiology is on board. Appreciate recommendations * Patient went for left sided ultrasound guided thoracentesis by IR, pleural fluid sent for evaluation * Continue IV centriaxone * Continue IV lasix * Continue to monitor on tele * Continue daily weights and strict monitoring of Is/Os 2. Altered mental status: Most likely secondary to a postconcussive state. Repeat head imaging showed no intracranial processes. UA and urine toxicology were negative. Patient remains alert and oriented x3. 3. Hyperkalemia: Potassium 6.3 on admission. Patient received calcium gluconate and insulin in the emergency room. Potassium is currently in the normal range. -Continue to monitor 4 NORMA: Resolved. Likely prerenal azotemia in the setting of acute medical illness. -Continue monitor 5. Microcytic anemia: No evidence of bleeding. Iron was low with normal TIBC and ferritin. -Ferrous sulfate supplement -Stool guaiac 6. Chronic medical problems: -Continue home medications -Aspirin and plavix held for thoracentesis DVT PPx: heparin, ALPS Diet: diabetic diet Full code Problem List: 1. Pleural effusion Pain Ratin Pain Location: n/a Pain Goal: Remain pain free Pain Plan: per pain pathway Tomorrow's Labs & Rationales: cbc bep
[2017-11-26 08:05] LABS: ABSOLUTE BASOPHIL COUNT 0 /CUMM (0.0-0.2); ABSOLUTE EOSINOPHIL COUNT 0.1 /CUMM (0.0-0.7); ABSOLUTE GRANULOCYTE CT 7.1 /CUMM (1.4-6.5); ABSOLUTE LYMPH COUNT 0.5 /CUMM (1.2-3.4); ABSOLUTE MONOCYTE COUNT 0.9 /CUMM (0.10-0.60); BASOPHIL % 0.1 % (0.0-2.0); EOSINOPHIL % 0.9 % (0-5); HEMATOCRIT 31.6 % (42-52); MEAN CORPUSCULAR HGB CONC 31.4 G/DL (33.0-37.0); MEAN CORPUSCULAR VOLUME 73.4 FL (80.0-94.0); MEAN PLATELET VOLUME 8.8 FL (7.4-10.4); PLATELET COUNT 265 /CUMM (130-400); RBC DISTRIBUTION WIDTH 19.1 % (11.5-14.5); RED BLOOD CELL CT 4.31 /CUMM (4.70-6.10); WHITE BLOOD CELL COUNT 8.5 /CUMM (4.8-10.8)
[2017-11-26 08:54] LABS: GRANULOCYTE % 83.1 % (42.2-75.2)
--- NOTE | 2017-11-26 13:58 | PN- Cardiology ---
Subjective Subjective: Shortness of breath improving. Right-sided thoracentesis done yesterday, and the patient reports a significant improvement in his shortness of breath after the procedure. No chest pain. No palpitations. No diaphoresis Objective Vital Signs and I&Os Vital Signs Date Time Temp Pulse Resp B/P B/P Pulse O2 O2 Flow FiO2 Mean Ox Delivery Rate 11/26 0958 96 Nasal 2.0L Cannula 11/26 09 66 124/52 11/26 0930 66 124/52 11/26 0800 Nasal 2.0L Cannula 11/26 0546 98.1 63 24 120/41 94 11/26 0000 95 Nasal 2.0L Cannula 11/25 2221 97.9 66 18 132/58 96 Nasal Cannula 11/25 2144 68 140/68 11/25 2050 Nasal 2.0L Cannula 11/25 1600 Nasal 2.0L Cannula 11/25 1453 97.6 62 18 134/62 96 Nasal 2.0L Cannula Intake & Output 11/26 1600 11/26 0800 11/26 0000 11/25 1600 11/25 0800 11/25 0000 Intake Total 558 250 440 Output Total 750 6413 710 9408 Balance -192 -1100 -275 -1510 Intake, IV 250 40 Intake, Oral 558 0 400 Number 0 Bowel Movements Output, Urine 750 6502 407 3565 Patient 141 lb Weight Weight Bed scale Measurement Method Physical Exam: Gen: The patient is in no acute distress HEENT: Normal nose, ears, and oropharynx. Pupils equal bilaterally. Conjunctiva normal. Neck: Supple with no JVD, no masses, and no thyromegaly Lungs: Bilateral rhonchi with normal respiratory effort Heart: RRR, S1, S2, 1/6 systolic murmur. 1+ peripheral edema, 1+ pulses in the lower extremities bilaterally Abdomen: Soft, nontender, no masses. No hepatomegaly. No splenomegaly Extremities: No clubbing or cyanosis. Normal muscle strength in the upper and lower extremities Skin: Normal skin turgor with no skin ulcers or lesions noted. Neuro: Cranial nerves intact. Sensation intact Current Medications: Current Medications Sig/Damon Start time Last Medication Dose Route Stop Time Status Admin Albuterol Sulfate 3 ML BID 11/23 2199 AC 11/26 INH 0829 Atorvastatin Calcium 40 MG DAILY 11/23 1000 AC 11/26 PO 09 Ceftriaxone Sodium 1,000 MG 2030 11/22 2029 AC 11/25 IV 2144 Docusate Sodium 100 MG DAILY 11/24 1155 AC 11/26 PO 0931 Ferrous Sulfate 325 MG DAILY 11/25 1000 AC 11/26 PO 0931 Finasteride 5 MG DAILY 11/22 1909 AC 11/26 PO 0930 Furosemide 40 MG Q12H 11/25 1800 AC 11/26 IV 0637 Guaifenesin/ 10 ML Q6P PRN 11/23 1615 AC 11/24 Dextromethorphan PO 2121 Insulin Aspart 0 TIDAC 11/25 1200 AC 11/26 SC 1130 Lidocaine 1 ML .STK-MED ONE 11/25 1448 DC ID 11/25 1449 Magnesium Oxide 400 MG BID 11/22 2199 AC 11/26 PO 0930 Melatonin 6 MG QPM 11/22 2199 AC 11/25 PO 2143 Omeprazole 20 MG DAILY AC 11/23 0700 AC 11/26 PO 0637 Polyethylene Glycol 17 GM DAILY 11/24 1157 AC 11/26 PO 0931 Ranolazine 1,000 MG BID 11/22 2199 AC 11/26 PO 0930 Tamsulosin HCl 0.4 MG DAILY 11/22 1909 AC 11/26 PO 0930 Tiotropium [place] 1 PUF DAILY 11/23 1800 AC 11/26 INH 0931 Results Last 48 Hrs of Labs/Mics: Laboratory Tests 11/26/17 0628: Anion Gap 14, Estimated GFR > 60, BUN/Creatinine Ratio 33.3 H, CBC w Diff NO MAN DIFF REQ, RBC 4.31 L, MCV 73.4 L, MCH 23.0 L, MCHC 31.4 L, RDW 19.1 H, MPV 8.8, Gran % 83.1 H, Lymphocytes % 5.9 L, Monocytes % 10.0 H, Eosinophils % 0.9, Basophils % 0.1, Absolute Granulocytes 7.1 H, Absolute Lymphocytes 0.5 L, Absolute Monocytes 0.9 H, Absolute Eosinophils 0.1, Absolute Basophils 0 11/25/17 1345: Pleural pH 7.43 11/25/17 1345: Fluid WBC 1023 H, Fld Mesothelial Cells 24, Fld Total RBCs Counted 2717 H 11/25/17 1345: Lymphocytes 64, % Normal PMNs 12, Phlebotomy Draw Site RT THORACENTESIS, Fluid Glucose 95, Fluid Total Protein 2.9, Fluid Albumin 1.2, Fluid LDH 309, Fluid Amylase < 30 11/25/17 0708: Anion Gap 15, Estimated GFR > 60, BUN/Creatinine Ratio 38.8 H, Lactate Dehydrogenase 267 L, CBC w Diff NO MAN DIFF REQ, RBC 3.96 L, MCV 73.5 L, MCH 23.2 L, MCHC 31.6 L, RDW 19.4 H, MPV 9.2, Gran % 83.6 H, Lymphocytes % 5.0 L, Monocytes % 10.4 H, Eosinophils % 0.9, Basophils % 0.1, Absolute Granulocytes 6.8 H, Absolute Lymphocytes 0.4 L, Absolute Monocytes 0.8 H, Absolute Eosinophils 0.1, Absolute Basophils 0 Recent Imaging Studies: No right-sided pneumothorax. Right-sided pleural effusion is smaller but persistent. Stable moderate left-sided pneumothorax. Assessment/Plan Assessment/Plan Assessment: 1. CAD, status post CABG 2. Hypertension 3. Peripheral arterial disease 4. Diabetes mellitus 5. Possible community acquired pneumonia 6. Possible acute on chronic heart failure with reduced ejection fraction 7. Hyperkalemia with acute kidney injury Plan: * Continue Lasix 40 mg's IV every 12 hours * Monitor input and output with daily weights * Check basic metabolic profile daily * Antibiotic therapy for possible pneumonia * Status post left thoracentesis. Would consider right thoracentesis Continue telemetry? Yes
[2017-11-26 14:13] VITALS: BP 120/60
--- NOTE | 2017-11-26 17:09 | ULTRASOUND REPORT ---
PROCEDURE: Thoracentesis CLINICAL INFORMATION: Pleural Effusion COMPARISON: Thoracentesis and chest x-rays 11/25/2017 TECHNIQUE: Indirect ultrasound guided thoracentesis using a 5 Filipino Yueh catheter. FINDINGS: Informed consent was obtained from the patient prior to the procedure. During this process, the procedure alternatives were explained, along with the intended outcome and benefits. The risks of the procedure, as well as the risk of not doing the procedure, was discussed. The patient was given the opportunity to ask questions regarding the procedure and appeared competent to make medical decisions. A signed consent form which documents this discussion was placed in the medical record. A timeout procedure was performed. Ultrasound evaluation of the chest for pleural fluid was performed. A large pleural effusion is noted on the left side. Using standard interventional and sterile techniques, lidocaine was used to anesthetize the region. A 5 Filip[place] Yueh catheter was introduced into the left pleural fluid using standard safety needle technique. Approximately 1410 mL's of jermaine fluid was removed into the Vacutainer bottles until drainage ceased. The catheter was then removed. Good hemostasis was achieved. The patient tolerated the procedure well. A sterile dressing was placed. The patient was discharged from the department in stable condition. Patient scheduled for post procedure followup x-ray. COMPLICATIONS: None. IMPRESSION: Successful left-sided ultrasound-guided thoracentesis yielding approximately 1.4 L of fluid.
[2017-11-26 21:48] VITALS: BP 116/70
--- NOTE | 2017-11-26 23:08 | RADIOLOGY REPORT ---
EXAMINATION:\H\ \N\XR CHEST CLINICAL INFORMATION: Rule out pneumothorax status post left thoracentesis COMPARISON: 11/25/2017 TECHNIQUE: Frontal view of the chest was obtained. FINDINGS: Median sternotomy wires appear intact. Surgical clips overlie the mediastinum. The lungs are well expanded. There is significant improvement in the left-sided pleural effusion status post thoracentesis. No significant remaining effusion. Minimal left basilar atelectasis. There is a persistent small right pleural effusion with airspace opacity. No pneumothorax. The cardiomediastinal silhouette is unchanged, with a calcified aorta. IMPRESSION: Significant improvement of the left-sided pleural effusion status post thoracentesis. No pneumothorax. Persistent small right pleural effusion.
[2017-11-27 07:16] VITALS: BP 134/62
--- NOTE | 2017-11-27 07:41 | PN- Housestaff ---
Weston DEE,Álvaro 11/27/17 0741: Subjective Follow-up For: Acute hypoxic respiratory failure Pleural Effusion Nondisplaced fibular fracture Tele-Events Since Last Visit: Sinus Rhythm: 63-65 Subjective: Patient was seen and examined today. Patient states that his breathing has improved signficantly. Patient states he has no pain post-thoracentesis. Patient states he has left ankle pain. States he has not been able to walk on the foot or bear weight. No acute events overnight. Review of Systems Constitutional: Reports: no symptoms. Cardiovascular: Reports: no symptoms. Respiratory: Reports: no symptoms. Gastrointestinal: Reports: no symptoms. Genitourinary: Reports: no symptoms. Musculoskeletal: Reports: see HPI. Skin: Reports: erythema. Neurological/Psychological: Reports: no symptoms. Objective Last 24 Hrs of Vital Signs/I&O Vital Signs Date Time Temp Pulse Resp B/P B/P Pulse O2 O2 Flow FiO2 Mean Ox Delivery Rate 11/27 1113 92 Room Air 11/27 1042 69 134/62 11/27 1042 69 134/62 11/27 0833 18 93 Room Air 11/27 0716 98.2 69 20 134/62 98 Nasal Cannula 11/27 0000 100 Nasal 2.0L Cannula 11/26 2148 97.5 68 20 116/70 100 Nasal 2.0L Cannula 11/26 2121 64 116/70 11/26 2037 96 Nasal 2.0L Cannula 11/26 1558 Nasal 2.0L Cannula 11/26 1413 98.3 58 20 120/60 98 Nasal 2.0L Cannula Intake & Output 11/27 1600 11/27 0800 11/27 0000 Intake Total 400 400 Output Total 525 2325 Balance -125 -1925 Intake, Oral 400 400 Output, Other 1400 Output, Urine 525 925 Patient 137 lb Weight Weight Bed scale Measurement Method Physical Exam General Appearance: Alert, Oriented X3, Cooperative, No Acute Distress HEENT: Atraumatic, Mucous Membr. moist/pink Cardiovascular: Regular Rate, Normal S1, Normal S2 Lungs: crackles heard bilaterally at lung bases Abdomen: Normal Bowel Sounds, Soft, No Tenderness Extremities: No Clubbing, No Cyanosis, No Edema, Normal Pulses, tenderness and erythema at left ankle with some swelling but no appreciable fluctuation, , strength in lower extremity 5/5, patient has full ROM with extension, flexion, eversion and inversion of left foot with no increased pain Vascular: Normal Pulses, Pulses Symmetrical Current Medications: Current Medications Sig/Damon Start time Last Medication Dose Route Stop Time Status Admin Acetaminophen 650 MG ONCE ONE 11/27 1200 DC 11/27 PO 11/27 1201 1203 Albuterol Sulfate 3 ML BID 11/23 2200 AC 11/27 INH 1108 Aspirin Buffered 81 MG DAILY 11/27 1200 AC PO Atorvastatin Calcium 40 MG DAILY 11/23 1000 AC 11/27 PO 1042 Ceftriaxone Sodium 1,000 MG 11/27 AC IV Ceftriaxone Sodium 1,000 MG 11/22 2030 DC 11/25 IV 2144 Clopidogrel Bisulfate 75 MG DAILY 11/27 1200 AC PO Docusate Sodium 100 MG DAILY 11/24 1155 AC 11/27 PO 1042 Ferrous Sulfate 325 MG DAILY 11/25 1000 AC 11/27 PO 1042 Finasteride 5 MG DAILY 11/22 1910 AC 11/27 PO 1042 Furosemide 120 MG QAM 11/28 1000 AC PO Furosemide 80 MG 7:30 AM, & 4:30 PM 11/27 1630 CAN PO Furosemide 80 MG 16:30 11/27 1630 AC PO Furosemide 40 MG 0630,1630 11/27 0630 DC 11/27 IV 0630 Furosemide 40 MG Q12H 11/25 1800 DC 11/26 IV 1645 Guaifenesin/ 10 ML Q6P PRN 11/23 1615 AC 11/24 Dextromethorphan PO 2121 Insulin Aspart 0 TIDAC 11/25 1200 AC 11/26 SC 1130 Lidocaine 1 ML .STK-MED ONE 11/26 1605 DC ID 11/26 1606 Magnesium Oxide 400 MG BID 11/22 2199 AC 11/27 PO 1041 Melatonin 6 MG QPM 11/22 2200 AC 11/26 PO 2121 Omeprazole 20 MG DAILY AC 11/23 0700 AC 11/27 PO 0630 Polyethylene Glycol 17 GM DAILY 11/24 1157 AC 11/27 PO 1041 Potassium Chloride 40 MEQ ONCE ONE 11/26 1630 DC 11/26 PO 11/26 1631 1646 Ranolazine 1,000 MG BID 11/22 2200 AC 11/27 PO 1042 Tamsulosin HCl 0.4 MG DAILY 11/22 1910 AC 11/27 PO 1042 Tiotropium [place] 1 PUF DAILY 11/23 1800 AC 11/27 INH 1042 Last 24 Hrs of Lab/Evens Results Last 24 Hrs of Labs/Mics: Laboratory Tests 11/27/17 0658: Anion Gap 13, Estimated GFR > 60, BUN/Creatinine Ratio 21.7, CBC w Diff NO MAN DIFF REQ, RBC 4.63 L, MCV 74.0 L, MCH 23.3 L, MCHC 31.5 L, RDW 19.3 H, MPV 8.4, Gran % 82.6 H, Lymphocytes % 5.2 L, Monocytes % 11.1 H, Eosinophils % 1.0, Basophils % 0.1, Absolute Granulocytes 8.3 H, Absolute Lymphocytes 0.5 L, Absolute Monocytes 1.1 H, Absolute Eosinophils 0.1, Absolute Basophils 0 11/26/17 1540: Pleural pH 7.45 11/26/17 1540: Fluid WBC 450 H, Fld Total RBCs Counted 4913 H 11/26/17 1540: Lymphocytes 82, % Normal PMNs 4, Misc Hematology Test , Phlebotomy Draw Site LEFT THORACENTESIS, Fluid Glucose 123, Fluid Total Protein 2.9, Fluid Albumin 1.3, Fluid LDH 277, Fluid Amylase < 30 Microbiology 11/26 1540 BODY FLUID: Body Fluid Culture - RES 11/26 1540 BODY FLUID: Gram Stain - RES SPUTUM CULTURE: Procedure Result > GRAM STAIN Final 11/25/17-0949 WHITE BLOOD CELLS FEW SQUAMOUS CELLS FEW GRAM POSITIVE COCCI MANY GRAM POSITIVE RODS MODERATE OTHER MANY BUDDING YEAST > LOWER RESPIRATORY CULTURE Preliminary 11/27/17-1036 Mixed zoey after 2 days with Light growth of: 1. HAFNIA ALVEI Moderate growth of: 2. YEAST 3. ENTEROCOCCUS FURTHER SUSCEPTIBILITIES TO FOLLOW HAFNIA BILL Enteroc RX AB RX AB ------ -- ------ -- AMPICILLIN R S CEFAZOLIN R AMOX/CLAV AUGM R AMP/SULB-UNASYN R CEFOXITIN R CEFTAZIDIME S CEFTRIAXONE S CIPROFLOXACIN S GENTAMICIN S TRIMETH/SULFA S 1. HAFNIA ALVEI RX AB ------ -- AMPICILLIN R CEFAZOLIN R AMOXICILLIN/CLAVULINIC ACID R AMPICILLIN/SULBACTAM R CEFOXITIN R CEFTAZIDIME S CEFTRIAXONE S CIPROFLOXACIN S GENTAMICIN S TRIMETHOPRIM/SULFAMETHOXAZOLE S 3. ENTEROCOCCUS RX AB ------ -- AMPICILLIN S Orders ECHO Findings: Normal size left ventricle. Borderline left ventricular hypertrophy. Left ventricular ejection fraction is estimated at 35-40 %. Severe inferior and posterior hypokinesis. Mild left atrial dilatation. Mild mitral regurgitation. Mild tricuspid regurgitation. Right ventricular systolic pressure estimated to be elevated at 58 mmHg. Mild pulmonic regurgitation. Left pleural effusion is seen. Radiology Findings: Ankle Xray: IMPRESSION: Linear lucency in the lateral aspect of the distal fibula appears corticated, this may represent a subacute nondisplaced single cortex fracture. Overlying soft tissue swelling is noted. Assessment/Plan Assessment: Mr. Mejia is a 77-year-old male with past medical history of CAD status post CABG, HFrEF (EF 40-45%, stage 2 diastolic dysfunction), hypertension, lipidemia, peripheral vascular disease, bilateral carotid endarterectomies, diabetes mellitus who presents with shortness of breath. Problem List: 1. Acute hypoxic respiratory failure 2. Hyperkalemia - resolved 3. Lactic acidosis 4. Leukopenia - resolved 5. Microcytic anemia 6. Altered mental status 7. Acute kidney injury - resolved 8. Pleural effusion 9. Nondisplaced fibular fracture #Acute hypoxic respiratory failure: Patient presents with elevated BNP and CT evidence of bilateral pleural effusions. Cardiology was consulted and thinks this may be CHF versus pneumonia. Patient's ECHO showed LVEF of 35 to 40%. Today patient was weaned off oxygen, now saturating in the low 90s. Cultures are growing Havnei Marcelle sensitive to ceftriaxone and enterococcus - sensitive to ampicillin . Patient has had bilateral thoracentesis draining a total of 3L of fluid. Pleural fluid appears to be exudative based on LDH however due to recent fall and with diuretic therapy this is most likely transudative secondary to CHF exacerbation. There is no growth to date in pleural fluid culture. * Cardiology is on board. Appreciate recommendations * Continue IV centriaxone pending ID recommendations * IV lasix transitioned to PO lasix at patient's home dose of 120mg qAM and 80mg qPM * Continue to monitor on tele * Continue daily weights and strict monitoring of Is/Os * Pulmonology consulted. Appreciate recommendations # Nondisplaced left fibular fracture: Patient complaining of left ankle pain. Suffered from recent fall prior to admission. Patient is unable to walk or bearweight on that side. Ankle Xray showed a nondisplaced distal fibular fracture. Ortho has splinted leg. * Ortho consulted. Appreciate recommendations * Elevate and ice ankle * Tylenol PRN for pain * Leg splint to be kept in place until he is seen by ortho outpatient in 2 weeks 2. Altered mental status: Most likely secondary to a postconcussive state. Repeat head imaging showed no intracranial processes. UA and urine toxicology were negative. Patient remains alert and oriented x3. 3. Hyperkalemia: Potassium 6.3 on admission. Patient received calcium gluconate and insulin in the emergency room. Potassium is currently in the normal range. -Continue to monitor 4 NORMA: Resolved. Likely prerenal azotemia in the setting of acute medical illness. -Continue monitor 5. Microcytic anemia: No evidence of bleeding. Iron was low with normal TIBC and ferritin. -Ferrous sulfate supplement -Stool guaiac 6. Chronic medical problems: -Continue home medications -Aspirin and plavix restarted today DVT PPx: heparin, ALPS Diet: diabetic diet Full code Problem List: 1. Pleural effusion 2. Nondisplaced fracture of fibula Pain Ratin Pain Location: left ankle/foot Pain Goal: Pain 4 or less Pain Plan: tylenol PRN Tomorrow's Labs & Rationales: bep - on lasix Mayra Cisnerostom 11/27/17 1455: Attending MD Review Statement Attending Statement Attending MD Statement: examined this patient, discuss w/resident/PA/MEDICAL SALES ASSOCIATE, agreed w/resident/PA/MEDICAL SALES ASSOCIATE, reviewed EMR data (avail), discussed with nursing, discussed with case mgmt Attending Assessment/Plan: pt restarted back on his home dose of lasix. complained of left ankle pain secondary to fall at home- xray done reveals distal fibula fracture latera aspect that is non displaced. will get ortho consult. norma- resolved constipation- started on stool softeners. b/l pleural effusion- s/p b/l thoracentesis , repeat cxr in am . f/u on pulmonary recommendations. ID consulted - will f/u on their recommendations for resp culture results.
[2017-11-27 08:13] LABS: ABSOLUTE BASOPHIL COUNT 0 /CUMM (0.0-0.2); ABSOLUTE EOSINOPHIL COUNT 0.1 /CUMM (0.0-0.7); ABSOLUTE GRANULOCYTE CT 8.3 /CUMM (1.4-6.5); ABSOLUTE LYMPH COUNT 0.5 /CUMM (1.2-3.4); ABSOLUTE MONOCYTE COUNT 1.1 /CUMM (0.10-0.60); BASOPHIL % 0.1 % (0.0-2.0); GRANULOCYTE % 82.6 % (42.2-75.2); HEMATOCRIT 34.3 % (42-52); MEAN CORPUSCULAR HGB 23.3 PG (27.0-31.0); MEAN CORPUSCULAR HGB CONC 31.5 G/DL (33.0-37.0); MEAN PLATELET VOLUME 8.4 FL (7.4-10.4); PLATELET COUNT 291 /CUMM (130-400); RBC DISTRIBUTION WIDTH 19.3 % (11.5-14.5); RED BLOOD CELL CT 4.63 /CUMM (4.70-6.10)
--- NOTE | 2017-11-27 08:30 | PN- Student ---
Shirley Torres 11/27/17 0829: Subjective Subjective: Progress Note Follow up for: Acute hypoxic respiratory failure Pleural Effusion Tele Events: Sinus Rhythm with rate 62 - 64 No overnight events.Patient slept well and overall feels better.Reports that his breathing has improved.He did note that he has not had a bowel movement for the past 4 days and has some abdominal discomfart but denies any pain.He also pointed out that his left ankle is red,swollen and painful. Review of Systems Review of Systems Constitutional: Denies: chills, diaphoresis, fever, malaise. EENTM: Denies: visual changes, eye pain. Cardiovascular: Reports: no symptoms. Respiratory: Reports: no symptoms. GI: Reports: constipation. Genitourinary: Reports: no symptoms. Objective Objective: Vital Signs Date Time Temp Pulse Resp B/P B/P Pulse O2 O2 Flow FiO2 Mean Ox Delivery Rate 11/27 1113 92 Room Air 11/27 1042 69 134/62 11/27 1042 69 134/62 11/27 0833 18 93 Room Air 11/27 0716 98.2 69 20 134/62 98 Nasal Cannula 11/27 0000 100 Nasal 2.0L Cannula Intake & Output 11/27 1600 11/27 0800 11/27 0000 Intake Total 400 400 Output Total 525 2325 Balance -125 -1925 Intake, Oral 400 400 Output, Other 1400 Output, Urine 525 925 Patient 137 lb Weight Weight Bed scale Measurement Method Physical Exam General Appearance: Alert, Cooperative, No Acute Distress HEENT: Mucous Membrane moist, left periorbital echymosis Cardiovascular: Regular Rate, Normal S1, Normal S2 Lungs: Mild crackles throughout the left lung, decreased breath sounds on the right Extremities: No Edema, Normal Pulses, swelling,redness and tender to touch over left lateral malleolus. Current Medications Sig/Damon Start time Last Medication Dose Route Stop Time Status Admin Acetaminophen 650 MG ONCE ONE 11/27 1200 DC 11/27 PO 11/27 1201 1203 Albuterol Sulfate 3 ML BID 11/23 2200 AC 11/27 INH 1108 Aspirin Buffered 81 MG DAILY 11/27 1200 AC PO Atorvastatin Calcium 40 MG DAILY 11/23 1000 AC 11/27 PO 104 Ceftriaxone Sodium 1,000 MG 11/27 AC IV Ceftriaxone Sodium 1,000 MG 11/22 DC 01/29 IV 2144 Clopidogrel Bisulfate 75 MG DAILY 11/27 1200 AC PO Docusate Sodium 100 MG DAILY 11/24 1155 AC 11/27 PO 1042 Ferrous Sulfate 325 MG DAILY 11/25 1000 AC 11/27 PO 1042 Finasteride 5 MG DAILY 11/22 1910 AC 11/27 PO 1042 Furosemide 120 MG QAM 11/28 1000 UNVr PO Furosemide 80 MG 7:30 AM, & 4:30 PM 11/27 1630 CAN PO Furosemide 80 MG 16:30 11/27 1630 UNVr PO Furosemide 40 MG 0630,1630 11/27 0630 DC 11/27 IV 0630 Furosemide 40 MG Q12H 11/25 1800 DC 11/26 IV 1645 Guaifenesin/ 10 ML Q6P PRN 11/23 1615 AC 11/24 Dextromethorphan PO 2121 Insulin Aspart 0 TIDAC 11/25 1200 AC 11/26 SC 1130 Lidocaine 1 ML .STK-MED ONE 11/26 1605 DC ID 11/26 1606 Magnesium Oxide 400 MG BID 11/22 2200 AC 11/27 PO 1041 Melatonin 6 MG QPM 11/22 2200 AC 11/26 PO 2121 Omeprazole 20 MG DAILY AC 11/23 0700 AC 11/27 PO 0630 Polyethylene Glycol 17 GM DAILY 11/24 1157 AC 11/27 PO 1041 Potassium Chloride 40 MEQ ONCE ONE 11/26 1630 DC 11/26 PO 11/26 1631 1646 Ranolazine 1,000 MG BID 11/22 2200 AC 11/27 PO 1042 Tamsulosin HCl 0.4 MG DAILY 11/22 1910 AC 11/27 PO 1042 Tiotropium [place] 1 PUF DAILY 11/23 1800 AC 11/27 INH 1042 Results Results: Laboratory Tests 11/27/17 0658: Anion Gap 13, Estimated GFR > 60, BUN/Creatinine Ratio 21.7, CBC w Diff NO MAN DIFF REQ, RBC 4.63 L, MCV 74.0 L, MCH 23.3 L, MCHC 31.5 L, RDW 19.3 H, MPV 8.4, Gran % 82.6 H, Lymphocytes % 5.2 L, Monocytes % 11.1 H, Eosinophils % 1.0, Basophils % 0.1, Absolute Granulocytes 8.3 H, Absolute Lymphocytes 0.5 L, Absolute Monocytes 1.1 H, Absolute Eosinophils 0.1, Absolute Basophils 0 11/26/17 1540: Pleural pH 7.45 11/26/17 1540: Fluid WBC 450 H, Fld Total RBCs Counted 4913 H 11/26/17 1540: Lymphocytes 82, % Normal PMNs 4, Misc Hematology Test , Phlebotomy Draw Site LEFT THORACENTESIS, Fluid Glucose 123, Fluid Total Protein 2.9, Fluid Albumin 1.3, Fluid LDH 277, Fluid Amylase < 30 11/26/17 0628: Anion Gap 14, Estimated GFR > 60, BUN/Creatinine Ratio 33.3 H, Lactate Dehydrogenase 296 L, CBC w Diff NO MAN DIFF REQ, RBC 4.31 L, MCV 73.4 L, MCH 23.0 L, MCHC 31.4 L, RDW 19.1 H, MPV 8.8, Gran % 83.1 H, Lymphocytes % 5.9 L, Monocytes % 10.0 H, Eosinophils % 0.9, Basophils % 0.1, Absolute Granulocytes 7.1 H, Absolute Lymphocytes 0.5 L, Absolute Monocytes 0.9 H, Absolute Eosinophils 0.1, Absolute Basophils 0 11/25/17 1345: Pleural pH 7.43 11/25/17 1345: Fluid WBC 1023 H, Fld Mesothelial Cells 24, Fld Total RBCs Counted 2717 H 11/25/17 1345: Lymphocytes 64, % Normal PMNs 12, Phlebotomy Draw Site RT THORACENTESIS, Fluid Glucose 95, Fluid Total Protein 2.9, Fluid Albumin 1.2, Fluid LDH 309, Fluid Amylase < 30 11/25/17 0708: Anion Gap 15, Estimated GFR > 60, BUN/Creatinine Ratio 38.8 H, Lactate Dehydrogenase 267 L, CBC w Diff NO MAN DIFF REQ, RBC 3.96 L, MCV 73.5 L, MCH 23.2 L, MCHC 31.6 L, RDW 19.4 H, MPV 9.2, Gran % 83.6 H, Lymphocytes % 5.0 L, Monocytes % 10.4 H, Eosinophils % 0.9, Basophils % 0.1, Absolute Granulocytes 6.8 H, Absolute Lymphocytes 0.4 L, Absolute Monocytes 0.8 H, Absolute Eosinophils 0.1, Absolute Basophils 0 Microbiology Date/Time Procedure - Status Source Growth 11/26 154 Body Fluid Culture - RES BODY FLUID 01/30 1540 Gram Stain - RES BODY FLUID SPUTUM CULTURE: Procedure Result > GRAM STAIN Final 11/25/17-0949 WHITE BLOOD CELLS FEW SQUAMOUS CELLS FEW GRAM POSITIVE COCCI MANY GRAM POSITIVE RODS MODERATE OTHER MANY BUDDING YEAST > LOWER RESPIRATORY CULTURE Preliminary 11/26/17-1024 Mixed zoey after 2 days with Light growth of: 1. HAFNIA ALVEI Moderate growth of: 2. YEAST 3. ENTEROCOCCUS Sensitivity to follow 1. HAFNIA ALVEI RX AB ------ -- AMPICILLIN R CEFAZOLIN R AMOXICILLIN/CLAVULINIC ACID R AMPICILLIN/SULBACTAM R CEFOXITIN R CEFTAZIDIME S CEFTRIAXONE S CIPROFLOXACIN S GENTAMICIN S TRIMETHOPRIM/SULFAMETHOXAZOLE S Assessment/Plan Assessment: Brenden Mejia is a 77 year old white male with a past medical history of CAD status post CABG,HFrEF (EF 40% - 45%) Stage 2 diastolyic dysfunction, hypertention,hyperlipidemia,pheripheral vascular disease,bilateral carotid endarterectomies, diabetes mellitus who presents with shortness of breath. Problem List: 1.Acute hypoxic respiratory failure 2.Pleural Effusion 3.Left Ankle injury Plan: Acute hypoxic respiratory failure: Patient presented with elevated BNP and CT evidence of bilateral pleural effusions. Cardiology was consulted and thought this may be CHF versus pneumonia.His breathing has improved from admission and is currently 92% O2 on room air.Is currently being diuresed on Furosemide 40mg IV.Lower respiratory tract sputum culture is currently growing Eliasi Marcelle sensitive to ceftriaxone, yeast and enterococcus - sensitivities pending. -Appreciate cardiology recommendations -Daily weights, I's and O's -IV furosemide -TTE -Appreciate pulmonology recommendations -Continue ceftriaxone. Pleural Effusion Patient presented with elevated BNP and CT evidence of bilateral pleural effusions R >L.Right thoracentesis was performed Saturday (11/25) and yielded 1550ml of fluid.Left sided throacentesos was performed yesterday (11/26) yielded 1440ml of jermaine fluid.A sample from each drainage procedure was gram stained and cultured so far no growth in either. -Appreciate cardiology reccomendations -Continue IV ceftriaxone -Continue IV lasix -Continue telemetry monitoring -Continue daily weights and strict monitoring of Is/Os Left Ankle Injury. Patient reports that since his fall a few days ago his left ankle has been tender,red and swollen and he is unable to bear weight on it.Given his status post fall and his age it is possible that he may have fractured his foot or have ligament damage.Patient has been treating said foot with an ice pack. -Xray of left foot -continue ice pack -consult ortho DVT PPx: heparin, ALPS Diet: diabetic diet Full code
--- NOTE | 2017-11-27 09:36 | PN- Cardiology ---
Subjective Subjective: Patient was seen and examined today. Patient alert,, oriented 3. He is status post right side thoracentesis that was done yesterday 1.4 L of fluid. Patient states after that his breathing status improved he is currently in the room air oxygen saturation more than 92%. He deny any chest pain, shortness of breath, heart racing, difficulty breathing. Objective Vital Signs and I&Os Vital Signs Date Time Temp Pulse Resp B/P B/P Pulse O2 O2 Flow FiO2 Mean Ox Delivery Rate 11/27 1113 92 Room Air 11/27 1042 69 134/62 11/27 1042 69 134/62 11/27 0833 18 93 Room Air 11/27 0716 98.2 69 20 134/62 98 Nasal Cannula 11/27 0000 100 Nasal 2.0L Cannula 11/26 2148 97.5 68 20 116/70 100 Nasal 2.0L Cannula 11/26 2121 64 116/70 11/26 2037 96 Nasal 2.0L Cannula 11/26 1558 Nasal 2.0L Cannula 11/26 1413 98.3 58 20 120/60 98 Nasal 2.0L Cannula Intake & Output 11/27 1600 11/27 0800 11/27 0000 11/26 1600 11/26 0800 11/26 0000 Intake Total 400 400 410 558 Output Total 525 2325 500 750 Balance -125 -1925 -90 -192 Intake, IV 10 Intake, Oral 400 400 400 558 Output, Other 1400 Output, Urine 525 925 500 750 Patient 137 lb 141 lb Weight Weight Bed scale Bed scale Measurement Method Current Medications: Current Medications Sig/Damon Start time Last Medication Dose Route Stop Time Status Admin Albuterol Sulfate 3 ML BID 11/23 2199 AC 11/27 INH 1108 Atorvastatin Calcium 40 MG DAILY 11/23 1000 AC 11/27 PO 1042 Ceftriaxone Sodium 1,000 MG 11/27 AC IV Ceftriaxone Sodium 1,000 MG 11/22 DC 11/25 IV 2144 Docusate Sodium 100 MG DAILY 11/24 1155 AC 11/27 PO 1042 Ferrous Sulfate 325 MG DAILY 11/25 1000 AC 11/27 PO 1042 Finasteride 5 MG DAILY 11/22 1910 AC 11/27 PO 1042 Furosemide 80 MG 7:30 AM, & 4:30 PM 11/27 1630 AC PO Furosemide 40 MG 0630,1630 11/27 0630 DC 11/27 IV 0630 Furosemide 40 MG Q12H 11/25 1800 DC 11/26 IV 1645 Guaifenesin/ 10 ML Q6P PRN 11/23 1615 AC 11/24 Dextromethorphan PO 2121 Insulin Aspart 0 TIDAC 11/25 1200 AC 11/26 SC 1130 Lidocaine 1 ML .STK-MED ONE 11/26 1605 DC ID 11/26 1606 Magnesium Oxide 400 MG BID 11/22 2200 AC 11/27 PO 1041 Melatonin 6 MG QPM 11/22 2200 AC 11/26 PO 2121 Omeprazole 20 MG DAILY AC 11/23 0700 AC 11/27 PO 0630 Polyethylene Glycol 17 GM DAILY 11/24 1157 AC 11/27 PO 1041 Potassium Chloride 40 MEQ ONCE ONE 11/26 1630 DC 11/26 PO 11/26 1631 1646 Ranolazine 1,000 MG BID 11/22 2200 AC 11/27 PO 1042 Tamsulosin HCl 0.4 MG DAILY 11/22 1910 AC 11/27 PO 1042 Tiotropium [place] 1 PUF DAILY 11/23 1800 AC 11/27 INH 1042 Results Last 48 Hrs of Labs/Mics: Laboratory Tests 11/27/17 0658: Anion Gap 13, Estimated GFR > 60, BUN/Creatinine Ratio 21.7, CBC w Diff NO MAN DIFF REQ, RBC 4.63 L, MCV 74.0 L, MCH 23.3 L, MCHC 31.5 L, RDW 19.3 H, MPV 8.4, Gran % 82.6 H, Lymphocytes % 5.2 L, Monocytes % 11.1 H, Eosinophils % 1.0, Basophils % 0.1, Absolute Granulocytes 8.3 H, Absolute Lymphocytes 0.5 L, Absolute Monocytes 1.1 H, Absolute Eosinophils 0.1, Absolute Basophils 0 11/26/17 1540: Pleural pH 7.45 11/26/17 1540: Fluid WBC 450 H, Fld Total RBCs Counted 4913 H 11/26/17 1540: Lymphocytes 82, % Normal PMNs 4, Misc Hematology Test , Phlebotomy Draw Site LEFT THORACENTESIS, Fluid Glucose 123, Fluid Total Protein 2.9, Fluid Albumin 1.3, Fluid LDH 277, Fluid Amylase < 30 11/26/17 0628: Anion Gap 14, Estimated GFR > 60, BUN/Creatinine Ratio 33.3 H, Lactate Dehydrogenase 296 L, CBC w Diff NO MAN DIFF REQ, RBC 4.31 L, MCV 73.4 L, MCH 23.0 L, MCHC 31.4 L, RDW 19.1 H, MPV 8.8, Gran % 83.1 H, Lymphocytes % 5.9 L, Monocytes % 10.0 H, Eosinophils % 0.9, Basophils % 0.1, Absolute Granulocytes 7.1 H, Absolute Lymphocytes 0.5 L, Absolute Monocytes 0.9 H, Absolute Eosinophils 0.1, Absolute Basophils 0 11/25/17 1345: Pleural pH 7.43 11/25/17 1345: Fluid WBC 1023 H, Fld Mesothelial Cells 24, Fld Total RBCs Counted 2717 H 11/25/17 1345: Lymphocytes 64, % Normal PMNs 12, Phlebotomy Draw Site RT THORACENTESIS, Fluid Glucose 95, Fluid Total Protein 2.9, Fluid Albumin 1.2, Fluid LDH 309, Fluid Amylase < 30 Assessment/Plan Assessment/Plan Assessment: 1. CAD, status post CABG 2. Hypertension 3. Peripheral arterial disease 4. Diabetes mellitus 5. Possible community acquired pneumonia 6. Possible acute on chronic heart failure with reduced ejection fraction 7. Hyperkalemia with acute kidney injury Recommendation: * Can change his Lasix 40 mg's IV every 12 hours to his Home dose of 120 mg PO daily and Check basic metabolic profile daily to assess his response. * Monitor input and output with daily weights * Antibiotic therapy for possible pneumonia * Status post left and right thoracentesis. Continue telemetry? Yes
--- NOTE | 2017-11-27 09:57 | RADIOLOGY REPORT ---
EXAMINATION: XR ANKLE, LEFT CLINICAL INFORMATION: Recent fall, with continued pain for 5 days evaluate for fracture. COMPARISON: There are no prior studies for comparison. TECHNIQUE: AP, lateral, and mortise views of the left ankle. FINDINGS: Soft tissue swelling is present over the lateral malleolus. There is a focal lucency extending to the cortex of the lateral margin of the distal fibula at the level of the ankle mortise, this apparently represents a single cortex finding and is well corticated on both sides of the lucency. The findings are suggestive of a subacute fracture, there may be minimal overlying periosteal reactive changes. No additional cortical findings are noted throughout the bony structures of the left ankle, the ankle mortise is intact. No ankle joint effusion is present. Incidental note is made of bulky calcaneal osteophytes at the attachment sites of the plantar fascia inferiorly and at the attachment site of the Achilles tendon posteriorly. Vascular calcifications are present. Within the ankle soft tissues.. IMPRESSION: Linear lucency in the lateral aspect of the distal fibula appears corticated, this may represent a subacute nondisplaced single cortex fracture. Overlying soft tissue swelling is noted.
--- NOTE | 2017-11-27 13:12 | Cons- Orthopedic ---
General Information and HPI Consulting Request Date of Consult: 11/27/17 Requested By: Malcolm Cisneros MD History of Present Illness: 77 yr old male with left ankle pain x 4 days after a fall. admitted to hospital for heart issues. x-rays of left ankle show a nondisplaced distal fibular fracture. Patient states he's been ambulating a left lower extremity for the past 4 days. States his pain is minimal. Rates his pain as a 2. Worse with ambulation. Better at rest. Allergies/Medications Allergies: Coded Allergies: No Known Allergies (02/16/17) Home Med List: Acetaminophen (Tylenol Extra Strength) 500 MG TABLET 2 TAB PO PRN PAIN ( Reported) Aspirin (Ecotrin*) 81 MG TABLET.DR 1 TAB PO DAILY HEART (Reported) Atorvastatin Calcium (Lipitor) 80 MG TABLET 0.5 TAB PO DAILY CHOLESTEROL ( Reported) Carvedilol (Unknown Strength) TABLET (Unknown Dose) PO DAILY HEART HEALTH ( Reported) Clopidogrel Bisulfate (Plavix) 75 MG TABLET 1 TAB PO DAILY BLOOD THINNER ( Reported) Finasteride 5 MG TABLET 1 TAB PO DAILY PROSTATE (Reported) Furosemide (Lasix) 80 MG TABLET 1 TAB PO QPM DIURETIC (Reported) Furosemide (Lasix) 40 MG TABLET 120 MG PO QAM DIURETIC (Reported) Gabapentin 400 MG CAPSULE 1 CAP PO TID NEUROPATHY (Reported) Isosorbide Mononitrate (Isosorbide Mononitrate ER) 60 MG TAB.ER.24H 0.5 TAB PO QAM CHEST/ANGINA (Reported) Lisinopril 2.5 MG TABLET 1 TAB PO DAILY BP (Reported) Magnesium Oxide 400 MG TABLET 400 MG PO BID sUPPLEMENT Melatonin 3 MG TABLET 6 MG PO QPM SUPPLEMENT (Reported) Metformin HCl 500 MG TABLET 1 TAB PO BID DM (Reported) Omeprazole 20 MG TABLET.DR 1 TAB PO DAILY AC GI (Reported) Potassium Chloride (K-Tab ER) 10 MEQ TABLET.ER 2 TAB PO DAILY SUPPLEMENT ( Reported) Ranolazine (Ranexa) 500 MG TAB.ER.12H 2 TAB PO BID ANGINA/CHEST PAIN ( Reported) Tamsulosin HCl (Flomax) 0.4 MG CAP.ER.24H 1 CAP PO DAILY PROSTATE (Reported) Past History Medical History Blood Transfusion Hx: No Neurological: NONE EENT: oral HSV Cardiovascular: CAD, CHF, hypertension, hyperlipidemia, PVD Respiratory: emphysema Gastrointestinal: NONE Hepatic: NONE Renal: NONE Musculoskeletal: ARTHRITIS Psychiatric: NONE Endocrine: diabetes Blood Disorders: NONE Cancer(s): bladder 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 Family History Relations & Conditions If Any: FATHER Myocardial infarction MOTHER Myocardial infarction Psychosocial History Who Do You Live With? spouse Services at Home: None Primary Language: Polish Smoking Status: Former Smoker ETOH Use: denies use Illicit Drug Use: denies illicit drug use Functional Ability ADLs Independent: dressing, eating, toileting, bathing. Review of Systems Review of Systems: See chart Exam & Diagnostic Data Vital Signs and I&O Vital Signs Date Time Temp Pulse Resp B/P B/P Pulse O2 O2 Flow FiO2 Mean Ox Delivery Rate 11/27 1113 92 Room Air 11/27 1042 69 134/62 11/27 1042 69 134/62 11/27 0833 18 93 Room Air 11/27 0716 98.2 69 20 134/62 98 Nasal Cannula 11/27 0000 100 Nasal 2.0L Cannula 11/26 2148 97.5 68 20 116/70 100 Nasal 2.0L Cannula 11/26 2121 64 116/70 11/26 2037 96 Nasal 2.0L Cannula 11/26 1558 Nasal 2.0L Cannula 11/26 1413 98.3 58 20 120/60 98 Nasal 2.0L Cannula Intake & Output 11/27 1600 11/27 0800 11/27 0000 11/26 1600 11/26 0800 11/26 0000 Intake Total 400 400 410 558 Output Total 525 2325 500 750 Balance -125 -1925 -90 -192 Intake, IV 10 Intake, Oral 400 400 400 558 Output, Other 1400 Output, Urine 525 925 500 750 Patient 137 lb 141 lb Weight Weight Bed scale Bed scale Measurement Method Physical Exam: He is tender over the left distal fibular region. He has ecchymosis left distal fibula region. Left lower extremity is neurovascularly intact. Skin is intact no abrasions or skin breakdown. Foot is neurovascularly intact with a positive dorsalis pedis pulse. He has 10 dorsiflexion and 40 of plantarflexion. He is nontender medially. He is nontender over the proximal tibia or fibula. X-rays left ankle show a nondisplaced distal fibular fracture no widening of the ankle mortise. He was placed into a well padded U-splint. Assessment/Plan Assessment/Plan Left distal fibula fracture -Elevate left lower extremity -Ice to left ankle -Weightbearing as tolerated with walker -Follow up in our office in 2 weeks at [phone] him into a walking boot at that point in time -Pain medication for ankle pain per medicine -He is to leave the splint on until his follow-up visit do not remove the splint at any time. Consult Acknowledgment - Thank you for your consult request.
--- NOTE | 2017-11-27 13:50 | Cons- Pulmonary ---
General Information and HPI Consulting Request Date of Consult: 11/27/17 Requested By: Med team History of Present Illness: Mr. Mejia is a 77-year-old male with past medical history of CAD status post CABG, HFrEF (EF 40-45%, stage 2 diastolic dysfunction), hypertension, lipidemia, peripheral vascular disease, bilateral carotid endarterectomies, diabetes mellitus who presents with shortness of breath. History by the patient is limited by his medical condition. Since he has been here he was found to have sig effusions bilateral and it has been tapped Now feels ok On room air Sig dyspnea Has sig copd and has baseline dyspnea fatigue on and off Recent loss of wt aswell Previous resp failure with ARDS Does go to [facility] Allergies/Medications Allergies: Coded Allergies: No Known Allergies (02/16/17) Home Med List: Acetaminophen (Tylenol Extra Strength) 500 MG TABLET 2 TAB PO PRN PAIN ( Reported) Aspirin (Ecotrin*) 81 MG TABLET.DR 1 TAB PO DAILY HEART (Reported) Atorvastatin Calcium (Lipitor) 80 MG TABLET 0.5 TAB PO DAILY CHOLESTEROL ( Reported) Carvedilol (Unknown Strength) TABLET (Unknown Dose) PO DAILY HEART HEALTH ( Reported) Clopidogrel Bisulfate (Plavix) 75 MG TABLET 1 TAB PO DAILY BLOOD THINNER ( Reported) Finasteride 5 MG TABLET 1 TAB PO DAILY PROSTATE (Reported) Furosemide (Lasix) 80 MG TABLET 1 TAB PO QPM DIURETIC (Reported) Furosemide (Lasix) 40 MG TABLET 120 MG PO QAM DIURETIC (Reported) Gabapentin 400 MG CAPSULE 1 CAP PO TID NEUROPATHY (Reported) Isosorbide Mononitrate (Isosorbide Mononitrate ER) 60 MG TAB.ER.24H 0.5 TAB PO QAM CHEST/ANGINA (Reported) Lisinopril 2.5 MG TABLET 1 TAB PO DAILY BP (Reported) Magnesium Oxide 400 MG TABLET 400 MG PO BID sUPPLEMENT Melatonin 3 MG TABLET 6 MG PO QPM SUPPLEMENT (Reported) Metformin HCl 500 MG TABLET 1 TAB PO BID DM (Reported) Omeprazole 20 MG TABLET.DR 1 TAB PO DAILY AC GI (Reported) Potassium Chloride (K-Tab ER) 10 MEQ TABLET.ER 2 TAB PO DAILY SUPPLEMENT ( Reported) Ranolazine (Ranexa) 500 MG TAB.ER.12H 2 TAB PO BID ANGINA/CHEST PAIN ( Reported) Tamsulosin HCl (Flomax) 0.4 MG CAP.ER.24H 1 CAP PO DAILY PROSTATE (Reported) Review of Systems Comments Reports: see HPI. EENTM: Reports: no symptoms. Cardiovascular: Reports: see HPI. Respiratory: Reports: see HPI. GI: Reports: no symptoms. Genitourinary: Reports: no symptoms. Musculoskeletal: Reports: see HPI. Skin: Reports: no symptoms. Neurological/Psychological: Reports: no symptoms. Hematologic/Endocrine: Reports: no symptoms. Immunologic/Allergic: Reports: no symptoms. 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 Family History Relations & Conditions If Any: FATHER Myocardial infarction MOTHER Myocardial infarction Psychosocial History Who Do You Live With? spouse Services at Home: None Primary Language: Wolof Smoking Status: Former Smoker ETOH Use: denies use Illicit Drug Use: denies illicit drug use Functional Ability ADLs Independent: dressing, eating, toileting, bathing. Exam & Diagnostic Data Last 24 Hrs of Vital Signs/I&O Vital Signs Date Time Temp Pulse Resp B/P B/P Pulse O2 O2 Flow FiO2 Mean Ox Delivery Rate 11/27 1113 92 Room Air 11/27 1042 69 134/62 11/27 1042 69 134/62 11/27 0833 18 93 Room Air 11/27 0716 98.2 69 20 134/62 98 Nasal Cannula 11/27 0000 100 Nasal 2.0L Cannula 11/26 2148 97.5 68 20 116/70 100 Nasal 2.0L Cannula 11/26 2121 64 116/70 11/26 2037 96 Nasal 2.0L Cannula 11/26 1558 Nasal 2.0L Cannula 11/26 1413 98.3 58 20 120/60 98 Nasal 2.0L Cannula Intake & Output 11/27 1600 11/27 0800 11/27 0000 Intake Total 400 400 Output Total 525 2325 Balance -125 -1925 Intake, Oral 400 400 Output, Other 1400 Output, Urine 525 925 Patient 137 lb Weight Weight Bed scale Measurement Method Last 48 Hrs of Labs/Evens: Laboratory Tests 11/27/17 0658: Anion Gap 13, Estimated GFR > 60, BUN/Creatinine Ratio 21.7, CBC w Diff NO MAN DIFF REQ, RBC 4.63 L, MCV 74.0 L, MCH 23.3 L, MCHC 31.5 L, RDW 19.3 H, MPV 8.4, Gran % 82.6 H, Lymphocytes % 5.2 L, Monocytes % 11.1 H, Eosinophils % 1.0, Basophils % 0.1, Absolute Granulocytes 8.3 H, Absolute Lymphocytes 0.5 L, Absolute Monocytes 1.1 H, Absolute Eosinophils 0.1, Absolute Basophils 0 11/26/17 1540: Pleural pH 7.45 11/26/17 1540: Fluid WBC 450 H, Fld Total RBCs Counted 4913 H 11/26/17 1540: Lymphocytes 82, % Normal PMNs 4, Misc Hematology Test , Phlebotomy Draw Site LEFT THORACENTESIS, Fluid Glucose 123, Fluid Total Protein 2.9, Fluid Albumin 1.3, Fluid LDH 277, Fluid Amylase < 30 11/26/17 0628: Anion Gap 14, Estimated GFR > 60, BUN/Creatinine Ratio 33.3 H, Lactate Dehydrogenase 296 L, CBC w Diff NO MAN DIFF REQ, RBC 4.31 L, MCV 73.4 L, MCH 23.0 L, MCHC 31.4 L, RDW 19.1 H, MPV 8.8, Gran % 83.1 H, Lymphocytes % 5.9 L, Monocytes % 10.0 H, Eosinophils % 0.9, Basophils % 0.1, Absolute Granulocytes 7.1 H, Absolute Lymphocytes 0.5 L, Absolute Monocytes 0.9 H, Absolute Eosinophils 0.1, Absolute Basophils 0 11/25/17 1345: Pleural pH 7.43 11/25/17 1345: Fluid WBC 1023 H, Fld Mesothelial Cells 24, Fld Total RBCs Counted 2717 H 11/25/17 1345: Lymphocytes 64, % Normal PMNs 12, Phlebotomy Draw Site RT THORACENTESIS, Fluid Glucose 95, Fluid Total Protein 2.9, Fluid Albumin 1.2, Fluid LDH 309, Fluid Amylase < 30 Assessment/Plan Impression/Plan: General Appearance: Alert, Cooperative, No Acute Distress HEENT: Mucous Membrane moist, left periorbital echymosis Cardiovascular: Regular Rate, Normal S1, Normal S2 Lungs: Mild crackles throughout the left lung, decreased breath sounds on the right Extremities: No Edema, Normal Pulses, swelling,redness and tender to touch over left lateral malleolus. Mr. Mejia is a 77-year-old male with past medical history of CAD status post CABG, HFrEF (EF 40-45%, stage 2 diastolic dysfunction), hypertension, lipidemia, peripheral vascular disease, bilateral carotid endarterectomies, diabetes mellitus who presents with shortness of breath. His active issues include * Bilateral large pleural effusion which has been present for more than one year , bilateral thoracentesis done does reveal that it's most likely a transudate with low protein. As his effusions have been present for quite a while and as he has had a recent fall and not too sure about daily LDH. This is most likely related to his persistent heart failure. * He does have bilateral effusions with lymphocyte predominance in his cell count. Unlikely this is tuberculosis or lymphoma however this needs to be ruled out. * Significant cardiomyopathy, low ejection fraction, severe inferior and posterior hypokinesis with pulmonary hypertension * Very severe emphysema by CT scan with previous history of smoking. Patient does not appear to be a CO2 retainer and is oxygenating well * Bilateral lower lobe chronic atelectasis due to large effusions with probable infection now growing enterococci and hafnia, probable pneumonia but seems less likely versus significant bronchitis * Significant cachexia probably related to severe COPD and chronic heart failure * Resolved Acute kidney injury, hyperkalemia, mild lactic acidosis upon admission which seems to have resolved this may been related to low flow state * Severe peripheral vascular disease, multiple surgeries in the past, previous falls * Previous respiratory failure related to systolic heart failure with persistent bacteremia due to staph aureus and pneumonia which seems to be not an issue at this present time * Previous history of bladder cancer with no clinical evidence suggestive of recurrence, recurrent UTI, diabetes, significant peripheral vascular disease. * Hypertension, hyperlipidemia, previous CABG, previous non-ST segment elevation OK RECOMMENDATION * Please call the lab and add adenosine deaminase to the pleural fluids from both sides * QuantiFERON gold test * Ask the lab to see if they can add on flow cytometry to the pleural fluid that they can still do it * Continue aggressive diuresis * Change antibiotics to amoxicillin and Cipro * [id number] nebulizer therapy * Probably would require to continue IV Lasix * Further cardiac workup including a consideration for both right and left heart cath cardiology to decide * Please order a CT chest without contrast today as he has had his effusions drained to see whether he has any underlying lesions in both lower lobes Consult Acknowledgment - Thank you for your consult request.
--- NOTE | 2017-11-27 15:41 | Discharge Summary ---
Visit Information Visit Dates Admission Date: 11/22/17 Discharge Date: 11/28/2017 Hospital Course Course Attending Physician: Malcolm Cisneros MD Primary Care Physician: Juan Carlos Marie MD Hospital Course: 77 yo M with with hx of HTN, CAD s/p CABG, ischemic cardiomyopathy with HFrEF, bilateral carotid endarterectomy, bladder cancer s/p intravesical treatment, recurrent UTI, T2DM, septic shock secondary to staph aureus GEORGI negative for IE) , PAD s/p left femoral angioplasty c/b pseudoaneurysm with subsequent repair came to ED for evaluation of lethargy and dyspnea. 5 days prior to admission, he was struck by a garage door to the left side of his face/head with bruising to his left eye. No LOC. 1 day prior to admission, he was seen in ER for nausea, vomiting and some blurry vision. Imaging and blood work was unremarkable, so he was discharged. on the day of admission he was brought in for increasing lethargy, dizziness, headache, blurring of vision and dyspnea. He also has worsening leg swelling L>R. Patient is a limited historian. Vitals: afebrile, HR 50-60's, BP 103/54 --> 122/56, sats 88% RA --> 93% on 2L. Exam: Elderly patient lethargic abut arousable to verbal commands, oriented x1, bruising over left periorbital region, no difficulty to eye opening, JVD++, but dry mucous membranes. Chest b/l reduced air entry R>L, scattered rhonchi+, LE: b /l 1+ pitting pedal edema L>R. Labs: WBC 3.6 (was 11.7 a day prior), microcytic anemia, elevated D-dimer, K 6.3 , AG 18, BUN 51, creat 1.6 (Baseline 0.6-0.7), trop neg, proBNP 17425. LFTs normal. AB.39/38/100/23. Lactic acid 3.5 --> 2.8. CTA chest/abd/pelvis: moderate to large bilateral pleural effusions R>L with associated bibasilar airspace disease, emphysema, no PE. Distended gallbladder without wall thickening or cholelithiasis. Head CT: no acute injury. EKG: appears sinus for the most part, 'p' waves are difficult to discern but are present, RBBB, 1st degree AV block. Echo (2017): EF 40-45%, stage 2 diastolic dysfunction. He was admitted on telemetry floor and treated for these medical conditions # Acute hypoxic respiratory failure The DDX where pneumonia and CHF exacerbation with bilateral pleural effusion. Patient was put on IV Lasix and IV ceftriaxone and azithromycin. Patient bilateral pleural effusion was drained by IR around 1-1/2 L for each side. Per ID and pulmonology consultation the pleural effusion was leaning toward being transudative. However full cytometry of the pleural fluid and TB serologies were sent patient for follow-up with the food products tester regarding the final results of the tests . Sputum culture showed growth of HAFNIA ALVEI, yeast, enterococcu which according to the ID gift consultant it was contamination. antibiotic therapy has stopped after 5 days.IV Lasix was changed to home doses of by mouth Lasix .patient O2 saturation remained stable on room air. Echocardiogram showed EF of 35-40% With right ventricular systolic pressure of 58. he will be transferred to another hospital fo cardiac cath. # hyperkalemia Most likely due to acute illness and been on potassium supplementation.potassium normalized during the hospitalization .Lisinopril initially was stopped and then restarted after couple of days. # Microcytic anemia H&H was stable during the hospitalization #Nondisplaced left fibular fracture: Patient complaining ankle Xray showed a nondisplaced distal fibular fracture. Ortho recommended ,Elevate and ice ankle ,Tylenol PRN for pain ,Leg splint to be kept in place until he is seen by ortho outpatient office ( phone [phone] ) in 2 weeks. Allergies: Coded Allergies: No Known Allergies (02/16/17) Pertinent Lab Results: PATIENT: CAITY BELL PRESENT AGE: 77 PATIENT ACCOUNT NO: [id number] : 38 LOCATION: [facility] ORDERING PHYSICIAN: Faisal LYONS SERVICE DATE: 11/22/17 EXAM TYPE: CAT - CT ABD & PELVIS W IV CONTRAST EXAMINATION: CT ABDOMEN AND PELVIS WITH CONTRAST CLINICAL INFORMATION: Nausea. Pain. COMPARISON: Same day chest CTA. TECHNIQUE: Contiguous axial thin section helical images of the abdomen and pelvis were performed following the administration of 120 mL of intravenous Optiray 320. The data set was reformatted in the coronal and sagittal planes and reviewed on an independent workstation. DLP: 679 mGy-cm. FINDINGS: There are moderate to large bilateral pleural effusions, right greater than left with bibasilar atelectasis and groundglass opacification. The visualized portions of the heart are unremarkable. Emphysema is demonstrable. The liver is of normal size and mildly heterogeneous attenuation without focal lesions nor intrahepatic biliary ductal dilation. The gallbladder is distended. There is no gallbladder wall thickening. There are no gallbladder wall calculi. There is pericholecystic fluid. There is also a small amount of free fluid about the inferior aspect of the right lobe of the liver. The spleen, pancreas, adrenal glands are unremarkable. Both kidneys are of normal size and attenuation without hydronephrosis or nephrolithiasis. Following the administration of IV contrast, prompt symmetric nephrograms are displayed. There is no abdominal free fluid. There is neither mesenteric nor retroperitoneal lymphadenopathy. There is extensive sigmoid diverticulosis without evidence of diverticulitis; otherwise, unremarkable unopacified loops of small and large bowel are identified. There is a a vadvu-kw-fxfasxon amount of pelvic free fluid. The urinary bladder is unremarkable. There is neither pelvic nor inguinal lymphadenopathy. Bone windows: Neither sclerotic nor lytic bone lesions are identified. IMPRESSION: Moderate to large bilateral pleural effusions. Small amount of abdominal free fluid. Fntmu-lf-loweufym amount of pelvic free fluid. Distended gallbladder without wall thickening or cholelithiasis. Heterogeneous attenuation to the liver without discrete mass lesions. Sigmoid diverticulosis without evidence of diverticulitis. DICTATED BY: Israel Funk MD DATE/TIME DICTATED:11/22/171655 SLEEVE SEWER:VANESSA DATE/TIME TRANSCRIBED:11/22/171655 CONFIDENTIAL, DO NOT COPY WITHOUT APPROPRIATE AUTHORIZATION. <Electronically signed in Other Vendor System> SIGNED BY: Israel Funk MD 11/22/17 1702 PATIENT: CATIY BELL PRESENT AGE: 77 PATIENT ACCOUNT NO: [id number] : 38 LOCATION: [facility] ORDERING PHYSICIAN: Faisal LYONS SERVICE DATE: 11/22/17 EXAM TYPE: CAT - CTA CHEST-PULMONARY EMBOLISM EXAMINATION: CT PULMONARY EMBOLISM STUDY CLINICAL INFORMATION: Shortness of breath. COMPARISON: 01/28/2017. TECHNIQUE: Contiguous helical images of the chest were obtained following the administration of IV contrast. Multiplanar reconstructions were performed. MIPS were obtained and reviewed. DLP: 679 mGy-cm. CONTRAST: 120 mL of Optiray 350 were administered without incident. FINDINGS: The heart is of normal size. There is no pericardial effusion. The great vessels are unremarkable. Specifically, there is no pulmonary arterial filling defect. There is no CT evidence for pulmonary embolism. There are no chest wall masses. There are moderate to large bilateral pleural effusions, right greater than left. There is associated bibasilar airspace disease. There is extensive emphysema. Limited evaluation of the upper abdomen demonstrates that the liver is of normal size and attenuation without focal lesions. Normal adrenal glands are identified. IMPRESSION: No CT evidence for pulmonary embolism. Extensive emphysema. Moderate to large bilateral pleural effusions, right greater than left with associated bibasilar airspace disease. DICTATED BY: Israel Funk MD DATE/TIME DICTATED:11/22/171651 SLEEVE SEWER:VANESSA DATE/TIME TRANSCRIBED:11/22/171651 CONFIDENTIAL, DO NOT COPY WITHOUT APPROPRIATE AUTHORIZATION. <Electronically signed in Other Vendor System> SIGNED BY: Israel Funk MD 11/22/171657 PATIENT: CAITY BELL PRESENT AGE: 77 PATIENT ACCOUNT NO: [id number] : 38 LOCATION: [facility] ORDERING PHYSICIAN: Faisal LYONS SERVICE DATE: 11/22/17 EXAM TYPE: CAT - CT HEAD WO IV CONTRAST EXAMINATION: CT HEAD WITHOUT CONTRAST CLINICAL INFORMATION: Trauma to head. COMPARISON: 11/21/2017. TECHNIQUE: Contiguous helical images of the brain were obtained without IV contrast. Multiplanar reconstructions were performed. DLP: 875 mGy-cm. FINDINGS: There are no pathologic extra-axial fluid collections. The lateral, third, fourth ventricles are prominent, though stable, age-appropriate and concordant with the appearance of the sulci. There is no evidence for acute intraparenchymal hemorrhage or infarct. There is periventricular low attenuation indicative of small vessel disease. There is neither mass nor mass effect. There is no shift of midline structures. The paranasal sinuses and mastoid air cells are clear. There are no osseous lesions. IMPRESSION: No evidence for acute intracranial injury. Stable age-appropriate appearance of the brain. DICTATED BY: Israel Funk MD DATE/TIME DICTATED:11/22/171644 SLEEVE SEWER:VANESSA DATE/TIME TRANSCRIBED:11/22/171644 CONFIDENTIAL, DO NOT COPY WITHOUT APPROPRIATE AUTHORIZATION. <Electronically signed in Other Vendor System> SIGNED BY: Israel Funk MD 11/22/171654 PATIENT: CAITY BELL PRESENT AGE: 77 PATIENT ACCOUNT NO: [id number] : 38 LOCATION: [facility] ORDERING PHYSICIAN: Teo Moraes MD SERVICE DATE: 11/23/17- EXAM TYPE: CARD - ECHOCARDIOGRAM CAITY BELL Age: 77 : 1940 Gender: M Exam Date: 11/24/2017 10:12 Exam Location: [address] [place] [address] Ht (in): 68 Wt (lb): 140 BSA: 1.74 BP: 106 / 44 Ordering Physician: Teo Moraes MD Referring Physician: Richard Lund MD Technologist: Rosita Pryor KAREN Room Number: 189-01 Indications: HEART FAILURE Rhythm: Technical Quality: FINDINGS Left Ventricle Normal size left ventricle. Borderline left ventricular hypertrophy. Left ventricular ejection fraction is estimated at 35-40 %. Severe inferior and posterior hypokinesis. Right Ventricle Reduced right ventricular global systolic function. Right Atrium Normal right atrial size. Left Atrium Mild left atrial dilatation. Mitral Valve Mitral valve thickened. Mild mitral annular calcification. Mild mitral regurgitation. Aortic Valve Diffuse thickening (sclerosis) of the aortic valve cusps without reduced excursion. No aortic stenosis. Mild aortic regurgitation. Tricuspid Valve Tricuspid valve not well visualized, grossly normal. Mild tricuspid regurgitation. Right ventricular systolic pressure estimated to be elevated at 58 mmHg. Pulmonic Valve Pulmonic valve not well visualized, grossly normal. Mild pulmonic regurgitation. Pericardium Left pleural effusion is seen. Great Vessels Normal size aortic root. CONCLUSIONS Normal size left ventricle. Borderline left ventricular hypertrophy. Left ventricular ejection fraction is estimated at 35-40 %. Severe inferior and posterior hypokinesis. Mild left atrial dilatation. Mild mitral regurgitation. Mild tricuspid regurgitation. Right ventricular systolic pressure estimated to be elevated at 58 mmHg. Mild pulmonic regurgitation. Left pleural effusion is seen. Richard Lund M.D. (Electronically Signed) Final Date: 25 November 2017 09:48 MEASUREMENTS (Male / Female) Normal Values 2D ECHO LV Diastolic Diameter PLAX 5.4 cm 4.2 - 5.9 / 3.9 - 5.3 cm LV Systolic Diameter PLAX 4.5 cm 2.1 - 4.0 cm LV Fractional Shortening PLAX 16.7 % 25 - 46 % LV Ejection Fraction 2D Teich 34.6 % IVS Diastolic Thickness 1.2 cm LVPW Diastolic Thickness 1.1 cm LV Relative Wall Thickness 0.4 RV Internal Dim ED PLAX 4.0 cm 1.9 - 3.8 cm LVOT Diameter 1.9 cm Aortic Root Diameter 3.2 cm LA Systolic Diameter LX 5.1 cm 3.0 - 4.0 / 2.7 - 3.8 cm LA Volume 69.0 cm 18 - 58 / 22 - 52 cm Ascending Aorta Diameter 2.9 cm DOPPLER AV Peak Velocity 119.0 cm/s AV Peak Gradient 5.7 mmHg AV Mean Velocity 76.6 cm/s AV Mean Gradient 3.0 mmHg AV Velocity Time Integral 24.1 cm LVOT Peak Velocity 96.9 cm/s LVOT Peak Gradient 3.8 mmHg LVOT Mean Velocity 60.2 cm/s LVOT Mean Gradient 2.0 mmHg LVOT Velocity Time Integral 18.4 cm LVOT Stroke Volume 52.2 cm AV Area Cont Eq vti 2.2 cm AV Area Cont Eq pk 2.3 cm MV Peak Velocity 137.0 cm/s MV Peak Gradient 7.5 mmHg MV Mean Velocity 63.4 cm/s MV Mean Gradient 2.0 mmHg Mitral E Point Velocity 128.0 cm/s Mitral A Point Velocity 47.7 cm/s Mitral E to A Ratio 2.7 MV PHT Velocity 143.0 cm/s MV Deceleration Wright 512.0 cm/s MV Pressure Half Time 83.8 ms MV Area PHT 2.6 cm MV Deceleration Time 235.0 ms TR Peak Velocity 345.0 cm/s TR Peak Gradient 47.6 mmHg Right Atrial Pressure 10.0 mmHg Pulmonary Artery Systolic Pressu 57.6 mmHg Right Ventricular Systolic Press 57.6 mmHg PV Peak Velocity 88.2 cm/s PV Peak Gradient 3.1 mmHg PV Mean Velocity 60.1 cm/s PV Mean Gradient 2.0 mmHg PV Velocity Time Integral 18.1 cm LV E' Lateral Velocity 7.2 cm/s Mitral E to LV E' Lateral Ratio 17.7 LV E' Septal Velocity 3.3 cm/s Mitral E to LV E' Septal Ratio 39.0 DICTATED BY: Richard Lund MD DATE/TIME DICTATED:11/25/17947 SLEEVE SEWER:VANESSA DATE/TIME TRANSCRIBED:11/25/17947 CONFIDENTIAL, DO NOT COPY WITHOUT APPROPRIATE AUTHORIZATION. <Electronically signed in Other Vendor System> SIGNED BY: Richard Lund MD 11/25/17 0949 PATIENT: CAITY BELL PRESENT AGE: 77 PATIENT ACCOUNT NO: [id number] : 38 LOCATION: [facility] ORDERING PHYSICIAN: Jimbo Harris MD SERVICE DATE: 11/25/17- EXAM TYPE: RAD - XRY-CHEST XRAY, TWO VIEWS EXAMINATION: XR CHEST CLINICAL INFORMATION: Pleural effusion COMPARISON: Chest CTs from 11/22/2017 and 01/28/2017. Chest x-ray from 01/28/2017. TECHNIQUE: Frontal view of the chest FINDINGS: The thoracic aorta is stable with calcification of the arch. 2 median sternotomy wires are intact and unchanged without fracture. The heart size is within normal limits for technique. There is blunting of both costophrenic angles, right more than left, with associated bibasilar airspace opacification. Mineralization in the lung bases bilaterally is better visualized on CT, not convincingly resolved on the current images. Irregular lucency within the mid to upper lungs is compatible with underlying emphysema as is been previously noted. Airspace opacification in the bases is similar to 11/22/2017, progressive from 01/28/2017. No pneumothorax. No acute osseous abnormality is visualized. IMPRESSION: Stable appearance of the chest from 11/22/2017 across modalities with moderate right greater than left pleural effusions and associated lower lobe airspace opacification superimposed on underlying emphysema. DICTATED BY: Greta Vyas MD DATE/TIME DICTATED:11/25/17927 SLEEVE SEWER:VANESSA DATE/TIME TRANSCRIBED:11/25/17927 CONFIDENTIAL, DO NOT COPY WITHOUT APPROPRIATE AUTHORIZATION. <Electronically signed in Other Vendor System> SIGNED BY: Greta Vyas MD 11/25/1738 ========= PATIENT: CAITY BELL PRESENT AGE: 77 PATIENT ACCOUNT NO: [id number] : 38 LOCATION: 1NO ORDERING PHYSICIAN: Franklin Alcaraz MD SERVICE DATE: 11/25/17- EXAM TYPE: RAD - XRY-CHEST XRAY, SINGLE VIEW EXAMINATION:\H\ \N\XR CHEST CLINICAL INFORMATION: Status post right-sided thoracentesis COMPARISON: Chest x-ray same day at 8:55 AM TECHNIQUE: Frontal view of the chest was obtained. FINDINGS: Interval improvement in aeration of the right hemithorax with a residual moderate right-sided pleural effusion. No right-sided pneumothorax. Moderate left-sided pleural effusion with overlying airspace disease is stable from this morning. IMPRESSION: No right-sided pneumothorax. Right-sided pleural effusion is smaller but persistent. Stable moderate left-sided pneumothorax. DICTATED BY: Franklin Alcaraz MD DATE/TIME DICTATED:11/25/171623 SLEEVE SEWER:VANESSA DATE/TIME TRANSCRIBED:11/25/171623 CONFIDENTIAL, DO NOT COPY WITHOUT APPROPRIATE AUTHORIZATION. <Electronically signed in Other Vendor System> SIGNED BY: Franklin Alcaraz MD 11/25/17 1632 PATIENT: CAITY BELL PRESENT AGE: 77 PATIENT ACCOUNT NO: [id number] : 38 LOCATION: 1NO ORDERING PHYSICIAN: Jimbo Harris MD SERVICE DATE: 11/25/17- EXAM TYPE: US - US-THORACENTESIS PROCEDURE: Thoracentesis CLINICAL INFORMATION: Pleural Effusion COMPARISON: Same day chest x-ray and CTA chest 11/22/2017 TECHNIQUE: Indirect ultrasound guided thoracentesis using a 5 Somali Yueh catheter. FINDINGS: Informed consent was obtained from the patient prior to the procedure. During this process, the procedure alternatives were explained, along with the intended outcome and benefits. The risks of the procedure, as well as the risk of not doing the procedure, was discussed. The patient was given the opportunity to ask questions regarding the procedure and appeared competent to make medical decisions. A signed consent form which documents this discussion was placed in the medical record. A timeout procedure was performed. Ultrasound evaluation of the chest for pleural fluid was performed. A large pleural effusion is noted on the right and left side (right slightly larger than left). The decision was made to perform a right-sided thoracentesis today and potentially a left-sided thoracentesis tomorrow. Using standard interventional and sterile techniques, lidocaine was used to anesthetize the region. A 5 Somali Lessonwritereh catheter was introduced into the right pleural fluid using standard safety needle technique. Approximately 1550 mL of jermaine fluid was removed into the Vacutainer bottles. The catheter was then removed. Good hemostasis was achieved. The patient tolerated the procedure well. A sterile dressing was placed. The patient was discharged from the department in stable condition. Patient scheduled for post procedure followup x-ray. Fluid sent for requested analysis. COMPLICATIONS: None. IMPRESSION: Successful ultrasound-guided right-sided thoracentesis yielding 1550 mL's of fluid. Procedure discussed with medical information specialist Jimbo Harris. A left-sided thoracentesis can be performed tomorrow if the patient remains clinically stable. DICTATED BY: Franklin Alcaraz MD DATE/TIME DICTATED:11/25/171617 SLEEVE SEWER:VANESSA DATE/TIME TRANSCRIBED:11/25/171617 CONFIDENTIAL, DO NOT COPY WITHOUT APPROPRIATE AUTHORIZATION. <Electronically signed in Other Vendor System> SIGNED BY: Franklin Alcaraz MD 11/25/17 1627 ========= PATIENT: CAITY BELL PRESENT AGE: 77 PATIENT ACCOUNT NO: [id number] : 38 LOCATION: 1NO ORDERING PHYSICIAN: Franklin Alcaraz MD SERVICE DATE: 11/26/17- EXAM TYPE: RAD - XRY-CHEST XRAY, SINGLE VIEW EXAMINATION:\H\ \N\XR CHEST CLINICAL INFORMATION: Rule out pneumothorax status post left thoracentesis COMPARISON: 11/25/2017 TECHNIQUE: Frontal view of the chest was obtained. FINDINGS: Median sternotomy wires appear intact. Surgical clips overlie the mediastinum. The lungs are well expanded. There is significant improvement in the left-sided pleural effusion status post thoracentesis. No significant remaining effusion. Minimal left basilar atelectasis. There is a persistent small right pleural effusion with airspace opacity. No pneumothorax. The cardiomediastinal silhouette is unchanged, with a calcified aorta. IMPRESSION: Significant improvement of the left-sided pleural effusion status post thoracentesis. No pneumothorax. Persistent small right pleural effusion. DICTATED BY: Brett Anna MD DATE/TIME DICTATED:11/26/172247 SLEEVE SEWER:VANESSA DATE/TIME TRANSCRIBED:11/26/172247 CONFIDENTIAL, DO NOT COPY WITHOUT APPROPRIATE AUTHORIZATION. <Electronically signed in Other Vendor System> SIGNED BY: Brett Anna MD 11/26 2308 PATIENT: CAITY BELL PRESENT AGE: 77 PATIENT ACCOUNT NO: [id number] : 38 LOCATION: [facility] ORDERING PHYSICIAN: Álvaro Ontiveros MD SERVICE DATE: 11/26/17- EXAM TYPE: US - US-THORACENTESIS PROCEDURE: Thoracentesis CLINICAL INFORMATION: Pleural Effusion COMPARISON: Thoracentesis and chest x-rays 11/25/2017 TECHNIQUE: Indirect ultrasound guided thoracentesis using a 5 Somali Yueh catheter. FINDINGS: Informed consent was obtained from the patient prior to the procedure. During this process, the procedure alternatives were explained, along with the intended outcome and benefits. The risks of the procedure, as well as the risk of not doing the procedure, was discussed. The patient was given the opportunity to ask questions regarding the procedure and appeared competent to make medical decisions. A signed consent form which documents this discussion was placed in the medical record. A timeout procedure was performed. Ultrasound evaluation of the chest for pleural fluid was performed. A large pleural effusion is noted on the left side. Using standard interventional and sterile techniques, lidocaine was used to anesthetize the region. A 5 Somali Yueh catheter was introduced into the left pleural fluid using standard safety needle technique. Approximately 1410 mL's of jermaine fluid was removed into the Vacutainer bottles until drainage ceased. The catheter was then removed. Good hemostasis was achieved. The patient tolerated the procedure well. A sterile dressing was placed. The patient was discharged from the department in stable condition. Patient scheduled for post procedure followup x-ray. COMPLICATIONS: None. IMPRESSION: Successful left-sided ultrasound-guided thoracentesis yielding approximately 1.4 L of fluid. DICTATED BY: Franklin Alcaraz MD DATE/TIME DICTATED:11/26/171703 SLEEVE SEWER:VANESSA DATE/TIME TRANSCRIBED:11/26/171703 CONFIDENTIAL, DO NOT COPY WITHOUT APPROPRIATE AUTHORIZATION. <Electronically signed in Other Vendor System> SIGNED BY: Franklin Alcaraz MD 11/26/171708 ========= PATIENT: CAITY BELL PRESENT AGE: 77 PATIENT ACCOUNT NO: [id number] : 38 LOCATION: 1NO ORDERING PHYSICIAN: Álvaro Ontiveros MD SERVICE DATE: 11/27/17- EXAM TYPE: RAD - XRY-ANKLE 3 OR MORE VIEWS L EXAMINATION: XR ANKLE, LEFT CLINICAL INFORMATION: Recent fall, with continued pain for 5 days evaluate for fracture. COMPARISON: There are no prior studies for comparison. TECHNIQUE: AP, lateral, and mortise views of the left ankle. FINDINGS: Soft tissue swelling is present over the lateral malleolus. There is a focal lucency extending to the cortex of the lateral margin of the distal fibula at the level of the ankle mortise, this apparently represents a single cortex finding and is well corticated on both sides of the lucency. The findings are suggestive of a subacute fracture, there may be minimal overlying periosteal reactive changes. No additional cortical findings are noted throughout the bony structures of the left ankle, the ankle mortise is intact. No ankle joint effusion is present. Incidental note is made of bulky calcaneal osteophytes at the attachment sites of the plantar fascia inferiorly and at the attachment site of the Achilles tendon posteriorly. Vascular calcifications are present. Within the ankle soft tissues.. IMPRESSION: Linear lucency in the lateral aspect of the distal fibula appears corticated, this may represent a subacute nondisplaced single cortex fracture. Overlying soft tissue swelling is noted. DICTATED BY: Maryam Covington MD DATE/TIME DICTATED:11/27/17949 SLEEVE SEWER:VANESSA DATE/TIME TRANSCRIBED:11/27/17949 CONFIDENTIAL, DO NOT COPY WITHOUT APPROPRIATE AUTHORIZATION. <Electronically signed in Other Vendor System> SIGNED BY: Maryam Covington MD [id number] ======= PATIENT: CAITY BELL PRESENT AGE: 77 PATIENT ACCOUNT NO: [id number] : 38 LOCATION: 1NO ORDERING PHYSICIAN: Álvaro Ontiveros MD SERVICE DATE: 11/27/17- EXAM TYPE: CAT - CT CHEST WO IV CONTRAST EXAMINATION: CT CHEST WITHOUT CONTRAST CLINICAL INFORMATION: Bilateral pleural effusions status post thoracentesis on 11/26/2017. Rule out lung mass or lesion. COMPARISON: 11/22/2017 TECHNIQUE: Multidetector volumetric CT imaging of the chest was done. Axial MIP volume rendering provided. Sagittal and coronal reformatted images were obtained. 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 Small bilateral pleural effusions. Coarse interstitial lung markings. LUNGS: Interval decrease in the size of the bilateral pleural effusions, now small on the right and trace on the left. Persistent bibasilar consolidations have slightly decreased since the prior study, likely due to decreasing compression from decreasing size of the pleural effusions. There is high density material seen within the consolidated portions of the lungs which is unchanged from 01/28/2017 but less dense on a chest CT dated 12/22/2016. There is a background of severe centrilobular emphysematous changes, worst involving the upper lung zones. Newly appearing irregular 0.6 cm nodular density at the posterior left apex (106/480). No evidence of pneumothorax. MEDIASTINUM: The patient is status post coronary artery bypass grafting with median sternotomy wires and mediastinal surgical clips. No thoracic aortic aneurysm. No pericardial effusion. Stable scattered subcentimeter mediastinal lymph nodes. No bulky adenopathy. PLEURA: As above. AXILLA: No lymphadenopathy. UPPER ABDOMEN: Unremarkable. OSSEOUS STRUCTURES: No acute or suspicious osseous abnormality. IMPRESSION: 1. Interval decrease in the size of the bilateral pleural effusions, now small on the right and trace on the left. Slightly decreased consolidative change of the lungs, likely due to decreased compression from the lessened pleural effusion volume. No new or increasing consolidations are seen; however, I cannot rule out an underlying lung mass or lesion as requested due to the present consolidations, which may be chronic. 2. Severe centrilobular emphysematous changes. DICTATED BY: Ashely Langston MD DATE/TIME DICTATED:11/27/171643 SLEEVE SEWER:VANESSA DATE/TIME TRANSCRIBED:11/27/171643 CONFIDENTIAL, DO NOT COPY WITHOUT APPROPRIATE AUTHORIZATION. <Electronically signed in Other Vendor System> SIGNED BY: Ashely Langston MD 11/27/17 1741 Disposition Summary Disposition Principal Diagnosis: Respiratory failure due to CHF exacerbation Bilateral pleural effusion Additional Diagnosis: Fibula fracture hx of COPD Discharge Disposition: other general hospital Discharge Instructions General Discharge Information Code Status: Full Code Patient's Diet: Heart healthy Patient's Activity: -Weightbearing as tolerated with walker and splint Follow-Up Instructions/Appts: -you are being transferred to another hospital for cardiac cath. -Please follow-up with your primary care provider within 7 days after discharge. -Please follow-up with your golf ball cover treater 7 days after discharge -Please follow-up with your food products tester 7 days after discharge -Please follow-up with your orthopedic surgeon 7-14 days after discharge -We have made changes to your home medications, please read the instructions carefully. -Please come back to the hospital if your symptoms got worse. Medications at Discharge Discharge Medications: Stop taking the following medications: Metformin HCl (Metformin HCl) 500 MG TABLET ORAL TWICE DAILY Potassium Chloride (K-Tab ER) 10 MEQ TABLET.ER ORAL DAILY Continue taking these medications: Carvedilol (Carvedilol) 25 MG TABLET 1 Tablet ORAL TWICE DAILY Comments: NOT GIVEN IN HOSPITAL CARVEDILOL 12.5 MG 12.5 PO 10/28/172055 Clopidogrel Bisulfate (Plavix) 75 MG TABLET 1 Tablet ORAL DAILY Comments: Last Taken: 11/29/17 Time: 0900 Finasteride (Finasteride) 5 MG TABLET 1 Tablet ORAL DAILY Comments: Last Taken: 11/29/17 Time: 0900 Omeprazole (Omeprazole) 20 MG TABLET.DR 1 Tablet ORAL DAILY BEFORE BREAKFAST Comments: Last Taken: 11/29/17 Time: 0520 Ranolazine (Ranexa) 500 MG TAB.ER.12H 2 Tablet ORAL TWICE DAILY Comments: Last Taken: 11/29/17 Time: 0915 Tamsulosin HCl (Flomax) 0.4 MG CAP.ER.24H 1 Capsule ORAL DAILY Comments: Last Taken: NOT GIVEN AT HOSPITAL Time: Aspirin (Ecotrin*) 81 MG TABLET.DR 1 Tablet ORAL DAILY Comments: Last Taken: 11/29/17 Time: 0900 Gabapentin (Gabapentin) 400 MG CAPSULE 1 Capsule ORAL THREE TIMES DAILY Comments: NOT GIVEN IN HOSPITAL Acetaminophen (Tylenol Extra Strength) 500 MG TABLET 2 Tablet ORAL as needed for PAIN Comments: Last Taken: 11/27/17 Time: 1203 650 MG GIVEN Furosemide (Lasix) 80 MG TABLET 1 Tablet ORAL Every night Comments: Last Taken: 11/27/17 Time: 1646 Furosemide (Lasix) 40 MG TABLET 120 Milligram ORAL Every Morning Comments: Last Taken: 11/29/17 Time: 0900 Melatonin (Melatonin) 3 MG TABLET 6 Milligram ORAL Every night Comments: Last Taken: 11/27/17 Time: 2112 Lisinopril (Lisinopril) 2.5 MG TABLET 1 Tablet ORAL DAILY Comments: Last Taken: 11/29/17 Time: 1000 Albuterol Sulfate (Proair Hfa) 90 MCG HFA.AER.AD 2 Puff Inhale through mouth EVERY 4-6 HOURS NEEDED as needed for SOB Qty = 1 Atorvastatin Calcium (Lipitor) 40 MG TABLET 1 Tablet ORAL DAILY Comments: Last Taken: 11/29/17 Time: 0900 Start taking the following new medications: Tiotropium [place] (Spiriva) 18 MCG CAP.W.DEV 1 Puff Inhale through mouth DAILY Qty = 1 No Refills Ferrous Sulfate (Ferrous Sulfate) 325 MG (65 MG IRON) TABLET.DR 325 Milligram ORAL DAILY Qty = 60 No Refills Insulin Regular, Human (NovoLIN R) 100 UNIT/ML VIAL 0 Units Inject into fatty tissue EVERY SIX HOURS Qty = 1 No Refills Instructions: BEFORE MEALS Blood Insulin Sugar Units <80 0 81-100 2 101-200 4 201-250 6 251-300 8 301-350 10 351-400 12 >400 Call Doctor Q6 NPO patient Blood Insulin Sugar Units <80 0 81-100 0 151-200 2 201-250 4 251-300 6 301-350 8 351-400 10 >400 Call Doctor Dextrose 5 %-0.45 % NaCl (Dextrose 5%-0.45% NaCl IV Soln) 5 %-0.45 % IV.SOLN 50 Milliliters INTRAVEN CONTINUOUS INFUSION Qty = 1 No Refills Instructions: 50 cc per hour Magnesium Oxide (Magnesium) 400 MG CAPSULE 1 Capsule ORAL DAILY Qty = 30 No Refills Copies To: Nilo DEE,Damian Gilbert; Frank DEE,Juan Carlos; Saeid DEE,Andrei Hilliard Attending MD Review Statement Documenting Attending: Israel Wheeler MD Other Findings: The patient was seen on the day of discharge and agree with the plan of care as outlined. Will have close cardiac follow-up and re-check BEP next week.
--- NOTE | 2017-11-27 15:48 | Cons- Infect Disease ---
General Information and HPI Consulting Request Date of Consult: 11/27/17 Requested By: Malcolm Cisneros MD Reason for Consult: Rule out pneumonia Source of Information: patient, family, old records History of Present Illness: This is a 77-year-old man with a history of hypertension, coronary artery disease, status post CABG over 20 years prior to admission, peripheral vascular disease, status post angioplasty of the left leg, diabetes, CHF, bladder cancer, with a history of recurrent urinary tract infections, seen in the emergency room on the day prior to admission, 4 days after head trauma from the garage door, with the complaint of nausea, vomiting and blurred vision, discharged after a CT of the head was negative, admitted on November 22 after returning to the emergency room because of increasing lethargy, weakness, poor po intake and increasing shortness of breath. On admission he was afebrile. Laboratory data revealed a white blood cell count of 3.6, potassium 6.3, BUN/creatinine 51 and 1.6, with normal liver enzymes, proBNP 13,700, ABG 7.39/38/100 on 3 L/m. Urinalysis negative. CT of the head was negative for any acute process. CTA of the chest was negative for pulmonary embolism but revealed moderate to large bilateral pleural effusions, right greater than left, with associated bibasilar airspace disease. CT of the abdomen and pelvis revealed a distended gallbladder with no wall thickening or cholelithiasis. He was begun on IV Lasix and Ceftriaxone and Azithromycin. On November 25 he underwent a right thoracentesis, yielding 1550 mL of fluid, and on November 26 he underwent a left thoracentesis, yielding 1400 mL of fluid. This Ceftriaxone and Azithromycin were discontinued on November 25 and he has been off antibiotics since. He has been afebrile since admission and his white blood cell count has remained normal. At present he feels improved from admission with no complaints. Allergies/Medications Allergies: Coded Allergies: No Known Allergies (02/16/17) Home Med List: Acetaminophen (Tylenol Extra Strength) 500 MG TABLET 2 TAB PO PRN PAIN ( Reported) Aspirin (Ecotrin*) 81 MG TABLET.DR 1 TAB PO DAILY HEART (Reported) Atorvastatin Calcium (Lipitor) 80 MG TABLET 0.5 TAB PO DAILY CHOLESTEROL ( Reported) Carvedilol (Unknown Strength) TABLET (Unknown Dose) PO DAILY HEART HEALTH ( Reported) Clopidogrel Bisulfate (Plavix) 75 MG TABLET 1 TAB PO DAILY BLOOD THINNER ( Reported) Finasteride 5 MG TABLET 1 TAB PO DAILY PROSTATE (Reported) Furosemide (Lasix) 80 MG TABLET 1 TAB PO QPM DIURETIC (Reported) Furosemide (Lasix) 40 MG TABLET 120 MG PO QAM DIURETIC (Reported) Gabapentin 400 MG CAPSULE 1 CAP PO TID NEUROPATHY (Reported) Isosorbide Mononitrate (Isosorbide Mononitrate ER) 60 MG TAB.ER.24H 0.5 TAB PO QAM CHEST/ANGINA (Reported) Lisinopril 2.5 MG TABLET 1 TAB PO DAILY BP (Reported) Magnesium Oxide 400 MG TABLET 400 MG PO BID sUPPLEMENT Melatonin 3 MG TABLET 6 MG PO QPM SUPPLEMENT (Reported) Metformin HCl 500 MG TABLET 1 TAB PO BID DM (Reported) Omeprazole 20 MG TABLET.DR 1 TAB PO DAILY AC GI (Reported) Potassium Chloride (K-Tab ER) 10 MEQ TABLET.ER 2 TAB PO DAILY SUPPLEMENT ( Reported) Ranolazine (Ranexa) 500 MG TAB.ER.12H 2 TAB PO BID ANGINA/CHEST PAIN ( Reported) Tamsulosin HCl (Flomax) 0.4 MG CAP.ER.24H 1 CAP PO DAILY PROSTATE (Reported) Past History Travel History Traveled to [place] past 21 day No (0) Medical History Blood Transfusion Hx: No Neurological: NONE EENT: oral HSV Cardiovascular: CAD, CHF, hypertension, hyperlipidemia, PVD Respiratory: emphysema Gastrointestinal: NONE Hepatic: NONE Renal: NONE Musculoskeletal: ARTHRITIS Psychiatric: NONE Endocrine: diabetes Blood Disorders: NONE Cancer(s): bladder SKIN CANCER 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 Family History Relations & Conditions If Any: FATHER Myocardial infarction MOTHER Myocardial infarction Psychosocial History Who Do You Live With? spouse Services at Home: None Primary Language: Arabic Smoking Status: Former Smoker ETOH Use: denies use Illicit Drug Use: denies illicit drug use Functional Ability ADLs Independent: dressing, eating, toileting, bathing. Review of Systems Review of Systems All Other Systems: Reviewed and Negative Exam & Diagnostic Data Last 24 Hrs of Vital Signs/I&O Vital Signs Date Time Temp Pulse Resp B/P B/P Pulse O2 O2 Flow FiO2 Mean Ox Delivery Rate 11/27 1113 92 Room Air 11/27 1042 69 134/62 11/27 1042 69 134/62 11/27 0833 18 93 Room Air 11/27 0716 98.2 69 20 134/62 98 Nasal Cannula 11/27 0000 100 Nasal 2.0L Cannula 11/26 2148 97.5 68 20 116/70 100 Nasal 2.0L Cannula 11/26 2121 64 116/70 11/26 2037 96 Nasal 2.0L Cannula 11/26 1558 Nasal 2.0L Cannula Intake & Output 11/27 1600 11/27 0800 11/27 0000 Intake Total 400 400 Output Total 525 2325 Balance -125 -1925 Intake, Oral 400 400 Output, Other 1400 Output, Urine 525 925 Patient 137 lb Weight Weight Bed scale Measurement Method Physical Exam Other Physical Findings: Afebrile. He is awake and alert, cachectic-appearing, but in no acute distress. Skin reveals no rash. HEENT negative. Neck is supple with no adenopathy. Lungs decreased breath sounds at the right base; crackles at the left base. Heart regular rhythm with a 2/6 systolic ejection murmur. Abdomen is soft, nontender with positive bowel sounds. Back no CVA tenderness. Extremities no cyanosis, clubbing or edema; left ankle wrapped. Neuro is without focality. Last 24 Hours of Lab Results: Laboratory Tests 11/27 11/26 11/26 0658 1540 1540 Chemistry Sodium (137 - 145 mmol/L) 141 Potassium (3.5 - 5.1 mmol/L) 4.0 Chloride (98 - 107 mmol/L) 97 L Carbon Dioxide (22 - 30 mmol/L) 30 Anion Gap (5 - 16) 13 BUN (9 - 20 mg/dL) 13 Creatinine (0.7 - 1.2 mg/dL) 0.6 L Estimated GFR (>60 ml/min) > 60 BUN/Creatinine Ratio (7 - 25 %) 21.7 Hematology CBC w Diff NO MAN DIFF REQ WBC (4.8 - 10.8 /CUMM) 10.0 RBC (4.70 - 6.10 /CUMM) 4.63 L Hgb (14.0 - 18.0 G/DL) 10.8 L Hct (42 - 52 %) 34.3 L MCV (80.0 - 94.0 FL) 74.0 L MCH (27.0 - 31.0 PG) 23.3 L MCHC (33.0 - 37.0 G/DL) 31.5 L RDW (11.5 - 14.5 %) 19.3 H Plt Count (130 - 400 /CUMM) 291 MPV (7.4 - 10.4 FL) 8.4 Gran % (42.2 - 75.2 %) 82.6 H Lymphocytes % (20.5 - 51.1 %) 5.2 L Monocytes % (1.7 - 9.3 %) 11.1 H Eosinophils % (0 - 5 %) 1.0 Basophils % (0.0 - 2.0 %) 0.1 Absolute Granulocytes (1.4 - 6.5 /CUMM) 8.3 H Absolute Lymphocytes (1.2 - 3.4 /CUMM) 0.5 L Absolute Monocytes (0.10 - 0.60 /CUMM) 1.1 H Absolute Eosinophils (0.0 - 0.7 /CUMM) 0.1 Absolute Basophils (0.0 - 0.2 /CUMM) 0 Other Body Source Fluid WBC (0 - 5 /CUMM) 450 H Fld Total RBCs Counted (0 /CUMM) 4913 H Pleural pH (PH) 7.45 11/26 1540 Hematology Lymphocytes (%) 82 % Normal PMNs (%) 4 Misc Hematology Test (%) Miscellaneous Phlebotomy Draw Site LEFT THORACENTESIS Other Body Source Fluid Glucose (mg/dL) 123 Fluid Total Protein (g/dL) 2.9 Fluid Albumin (g/dL) 1.3 Fluid LDH (U/L) 277 Fluid Amylase (U/L) < 30 Last 24 Hours of Evens Results: Blood cultures November 22 negative Urine strep pneumo antigen and Legionella antigen November 22 negative Rapid flu swab November 21 negative Urine culture November 23 negative Sputum culture November 24 positive for Enterococcus sensitive to Ampicillin, Hafnia alvei and yeast Right pleural fluid culture November 25 negative Left pleural fluid culture November 25 negative Diagnostic Data Recent Imaging Findings: Left ankle x-ray November 27 revealed a subacute nondisplaced cortex fracture of the distal fibula Chest x-ray November 26 reveals a decreased left pleural effusion status post thoracentesis with a persistent small right pleural effusion CT of the abdomen and pelvis November 22 revealed moderate to large bilateral pleural effusions; a distended gallbladder with no wall thickening or cholelithiasis CTA of the chest November 22 reveals moderate to large bilateral pleural effusions, right greater than left, with associated bibasilar airspace disease CT of the head November 22 no acute process Assessment/Plan Assessment/Plan Impression: This is a 77-year-old man with a history of hypertension, coronary artery disease, status post CABG over 20 years prior to admission, peripheral vascular disease, status post angioplasty of the left leg, diabetes, CHF, bladder cancer, with a history of recurrent urinary tract infections, admitted on November 22 with increasing lethargy, weakness, poor po intake and increasing shortness of breath, found to be afebrile with a normal white blood cell count and renal insufficiency, with a CT of the chest revealing bilateral pleural effusions, treated for pneumonia and CHF, found to have a positive sputum culture for multiple organisms, now improved after bilateral thoracenteses. His presentation is most consistent with an exacerbation of CHF. His pleural effusions appear mostly transudate, though his LDH was elevated, and suspect that they are related to his CHF. He has had no fevers or leukocytosis to suggest pneumonia and I suspect that the positive sputum culture represents oropharyngeal contamination, particularly with the isolation of Enterococcus and yeast, which are not common pulmonary pathogens. Hafnia can be part of the normal oral pharyngeal zoey as well. He apparently had a repeat CT of the chest today and will await the results but, based on his chest x-ray yesterday I suspect he will still have a residual right pleural effusion. Of note he has been diagnosed with a left fibular fracture, and he has been seen by Orthopedics. Suggestion: 1. Follow-up CT of the chest 2. Further management of his CHF per Cardiology 3. Continue to follow off antibiotics Consult Acknowledgment - Thank you for your consult request.
--- NOTE | 2017-11-27 17:41 | CT SCAN REPORT ---
EXAMINATION: CT CHEST WITHOUT CONTRAST CLINICAL INFORMATION: Bilateral pleural effusions status post thoracentesis on 11/26/2017. Rule out lung mass or lesion. COMPARISON: 11/22/2017 TECHNIQUE: Multidetector volumetric CT imaging of the chest was done. Axial MIP volume rendering provided. Sagittal and coronal reformatted images were obtained. DLP: 401.41 mGy-cm FINDINGS: HELMINTHOLOGIST: Postsurgical changes consistent with median sternotomy. Small bilateral pleural effusions. Coarse interstitial lung markings. LUNGS: Interval decrease in the size of the bilateral pleural effusions, now small on the right and trace on the left. Persistent bibasilar consolidations have slightly decreased since the prior study, likely due to decreasing compression from decreasing size of the pleural effusions. There is high density material seen within the consolidated portions of the lungs which is unchanged from 01/28/2017 but less dense on a chest CT dated 12/22/2016. There is a background of severe centrilobular emphysematous changes, worst involving the upper lung zones. Newly appearing irregular 0.6 cm nodular density at the posterior left apex (106/480). No evidence of pneumothorax. MEDIASTINUM: The patient is status post coronary artery bypass grafting with median sternotomy wires and mediastinal surgical clips. No thoracic aortic aneurysm. No pericardial effusion. Stable scattered subcentimeter mediastinal lymph nodes. No bulky adenopathy. PLEURA: As above. AXILLA: No lymphadenopathy. UPPER ABDOMEN: Unremarkable. OSSEOUS STRUCTURES: No acute or suspicious osseous abnormality. IMPRESSION: 1. Interval decrease in the size of the bilateral pleural effusions, now small on the right and trace on the left. Slightly decreased consolidative change of the lungs, likely due to decreased compression from the lessened pleural effusion volume. No new or increasing consolidations are seen; however, I cannot rule out an underlying lung mass or lesion as requested due to the present consolidations, which may be chronic. 2. Severe centrilobular emphysematous changes.
[2017-11-27 21:37] VITALS: BP 120/62
[2017-11-28 06:38] VITALS: BP 140/68
--- NOTE | 2017-11-28 07:29 | PN- Housestaff ---
Weston DEE,Álvaro 11/28/17 0729: Subjective Follow-up For: Acute hypoxic respiratory failure Pleural Effusion Nondisplaced fibular fracture Tele-Events Since Last Visit: SR: 62 to 70 Subjective: Patient was seen and examined today. Patient was sitting up in chair eating breakfast this morning. Patient states he is doing well. Patient denies any complaints at this time. No acute events overnight. Review of Systems Constitutional: Reports: no symptoms. Cardiovascular: Reports: no symptoms. Respiratory: Reports: no symptoms. Gastrointestinal: Reports: no symptoms. Musculoskeletal: Reports: see HPI. Objective Last 24 Hrs of Vital Signs/I&O Vital Signs Date Time Temp Pulse Resp B/P B/P Pulse O2 O2 Flow FiO2 Mean Ox Delivery Rate 11/28 1009 116/62 11/28 0938 Room Air 2.0L 11/28 0916 69 140/68 11/28 0915 69 140/68 11/28 0857 94 Room Air 11/28 0638 99.0 69 18 140/68 94 Room Air 11/28 0000 Room Air 11/27 2137 97.6 65 18 120/62 94 Room Air 11/27 2115 66 120/62 11/27 1113 92 Room Air Intake & Output 11/28 1600 11/28 0800 11/28 0000 Intake Total 120 1080 Output Total 475 Balance -355 1080 Intake, Oral 120 1080 Number 0 Bowel Movements Output, Urine 475 Patient 146 lb 142 lb Weight Weight Bed scale Measurement Method Physical Exam General Appearance: Alert, Oriented X3, Cooperative, No Acute Distress HEENT: Atraumatic, Mucous Membr. moist/pink Cardiovascular: Regular Rate, Normal S1, Normal S2 Lungs: crackles heard at lung bases bilaterally Abdomen: Normal Bowel Sounds, Soft, No Tenderness Extremities: No Clubbing, No Cyanosis, No Edema, Normal Pulses, left leg in U splint Vascular: Normal Pulses, Pulses Symmetrical Current Medications: Current Medications Sig/Damon Start time Last Medication Dose Route Stop Time Status Admin Acetaminophen 650 MG ONCE ONE 11/27 1200 DC 11/27 PO 11/27 1201 1203 Albuterol Sulfate 3 ML BID 11/23 2200 AC 11/28 INH 0856 Aspirin Buffered 81 MG DAILY 11/27 1200 AC 11/28 PO 0916 Atorvastatin Calcium 40 MG DAILY 11/23 1000 AC 11/28 PO 0916 Ceftriaxone Sodium 1,000 MG 2030 11/27 2030 CAN IV Clopidogrel Bisulfate 75 MG DAILY 11/27 1200 AC 11/28 PO 0916 Docusate Sodium 100 MG DAILY 11/24 1155 AC 11/28 PO 0915 Ferrous Sulfate 325 MG DAILY 11/25 1000 AC 11/28 PO 0916 Finasteride 5 MG DAILY 11/22 1910 AC 11/28 PO 0916 Furosemide 120 MG QAM 11/28 1000 AC 11/28 PO 0916 Furosemide 80 MG 7:30 AM, & 4:30 PM 11/27 1630 CAN PO Furosemide 80 MG 16:30 11/27 1630 AC 11/27 PO 1646 Guaifenesin/ 10 ML Q6P PRN 11/23 1615 AC 11/24 Dextromethorphan PO 2121 Insulin Aspart 0 TIDAC 11/25 1200 AC 11/27 SC 1736 Isosorbide 30 MG QA 11/28 1002 AC Mononitrate PO Lisinopril 2.5 MG DAILY 11/28 1000 AC 11/28 PO 1009 Magnesium Oxide 400 MG BID 11/22 2200 AC 11/28 PO 0916 Melatonin 6 MG QPM 11/22 2200 AC 11/27 PO 2113 Omeprazole 20 MG DAILY AC 11/23 0700 AC 11/28 PO 0540 Phenazopyridine HCl 200 MG ONCE ONE 11/27 1745 CAN PO 11/27 1746 Polyethylene Glycol 17 GM DAILY 11/24 1157 AC 11/28 PO 0915 Ranolazine 1,000 MG BID 11/22 2200 AC 11/28 PO 0915 Tamsulosin HCl 0.4 MG DAILY 11/22 1910 AC 11/28 PO 0916 Tiotropium [place] 1 PUF DAILY 11/23 1800 AC 11/28 INH 0916 Last 24 Hrs of Lab/Evens Results Last 24 Hrs of Labs/Mics: Laboratory Tests 11/28/17 0616: Anion Gap 11, Estimated GFR > 60, BUN/Creatinine Ratio 18.3, CBC w Diff NO MAN DIFF REQ, RBC 4.47 L, MCV 73.1 L, MCH 23.4 L, MCHC 32.0 L, RDW 19.0 H, MPV 8.5, Gran % 80.1 H, Lymphocytes % 6.6 L, Monocytes % 11.6 H, Eosinophils % 1.4, Basophils % 0.3, Absolute Granulocytes 7.6 H, Absolute Lymphocytes 0.6 L, Absolute Monocytes 1.1 H, Absolute Eosinophils 0.1, Absolute Basophils 0 Orders ECHO Findings: Normal size left ventricle. Borderline left ventricular hypertrophy. Left ventricular ejection fraction is estimated at 35-40 %. Severe inferior and posterior hypokinesis. Mild left atrial dilatation. Mild mitral regurgitation. Mild tricuspid regurgitation. Right ventricular systolic pressure estimated to be elevated at 58 mmHg. Mild pulmonic regurgitation. Left pleural effusion is seen. Assessment/Plan Assessment: Mr. Mejia is a 77-year-old male with past medical history of CAD status post CABG, HFrEF (EF 40-45%, stage 2 diastolic dysfunction), hypertension, lipidemia, peripheral vascular disease, bilateral carotid endarterectomies, diabetes mellitus who presents with shortness of breath. Problem List: 1. Acute hypoxic respiratory failure 2. Hyperkalemia - resolved 3. Lactic acidosis 4. Leukopenia - resolved 5. Microcytic anemia 6. Altered mental status 7. Acute kidney injury - resolved 8. Pleural effusion 9. Nondisplaced fibular fracture #Acute hypoxic respiratory failure 2/2 to CHF Exacerbation: Patient presents with elevated BNP and CT evidence of bilateral pleural effusions. Cardiology was consulted and thinks this may be CHF versus pneumonia. Patient's ECHO showed LVEF of 35 to 40%. Today patient was weaned off oxygen, now saturating in the low 90s. Cultures are growing Havnei Marcelle sensitive to ceftriaxone and enterococcus - sensitive to ampicillin . Patient has had bilateral thoracentesis draining a total of 3L of fluid. Pleural fluid appears to be exudative based on LDH however due to recent fall and with diuretic therapy this is most likely transudative secondary to CHF exacerbation. There is no growth to date in pleural fluid culture. Patient's ECHO also showed wall motion abnormalities with severe inferior and posterior hypokinesis. Dr. Corcoran and Dr Jones spoke to patient's outpatient health informatics specialist for cardiac cath which had been previously scheduled in 1 month. Per cardiology, will arrange for transfer for cardiac cath tomorrow. * Cardiology is on board. Appreciate recommendations * Pulmonology consulted. Appreciate recommendations * Observing off antibiotics per ID recommendations * Patient restarted on IV lasix at 40mg BID per pulmonology recommendations for continued need for diuresis as patient will rapidly accumulate fluid which puts him at high risk of infection. Will not overdiurese in anticipation for cardiac cath. * Continue to monitor on tele * Continue daily weights and strict monitoring of Is/Os # Nondisplaced left fibular fracture: Patient complaining of left ankle pain. Suffered from recent fall prior to admission. Patient is unable to walk or bearweight on that side. Ankle Xray showed a nondisplaced distal fibular fracture. Ortho has splinted leg. * Ortho consulted. Appreciate recommendations * Elevate and ice ankle * Tylenol PRN for pain * Leg splint to be kept in place until he is seen by ortho outpatient in 2 weeks 2. Altered mental status: Most likely secondary to a postconcussive state. Repeat head imaging showed no intracranial processes. UA and urine toxicology were negative. Patient remains alert and oriented x3. 3. Hyperkalemia: Potassium 6.3 on admission. Patient received calcium gluconate and insulin in the emergency room. Potassium is currently in the normal range. -Continue to monitor 4 NORMA: Resolved. Likely prerenal azotemia in the setting of acute medical illness. -Continue monitor 5. Microcytic anemia: No evidence of bleeding. Iron was low with normal TIBC and ferritin. -Ferrous sulfate supplement -Stool guaiac 6. Chronic medical problems: -Continue home medications -Aspirin and plavix DVT PPx: heparin, ALPS NPO for cardiac cath tomorrow Full code Problem List: 1. Pleural effusion 2. Nondisplaced fracture of fibula 3. Acute on chronic diastolic CHF (congestive heart failure) Pain Ratin Pain Location: left ankle Pain Goal: Remain pain free Pain Plan: tylenol PRN Tomorrow's Labs & Rationales: cbc bep Discharge Plan Discharge Disposition: transfer to another [facility] 11/28/17 1403: Attending MD Review Statement Attending Statement Attending MD Statement: examined this patient, discuss w/resident/PA/TIME CLERK, agreed w/resident/PA/TIME CLERK, reviewed EMR data (avail), discussed with nursing, discussed with case mgmt Attending Assessment/Plan: pt seen and examined at bedside. Pt taken off abx and will watch him off abx per ID recommendations. pt will be restarted back on Imdur. echo reviewed. will ask cardiology about adding zaroxyln. pt says he is compliant with lasix at home but eats twice a week outside. encouraged pt to be complaint with low sodium diet . Orthopedics saw the patient and put splint on left leg and pt will fu with them as an outpatient. possible dc tomorrow if repeat cxr tomorrow is ok.
--- NOTE | 2017-11-28 07:54 | PN- Student ---
Shirley Torres 11/28/17 0754: Subjective Subjective: Follow up for: Acute hypoxic respiratory failure Pleural Effusion No overnight events.Patient feels well this morning is in no pain or discomfort.He reports that his breathing is much improved and about baseline.HE is currently on room air with a O2 sat of 94%.He had 2 bowel movements yesterday. Review of Systems Review of Systems Constitutional: Reports: no symptoms. EENTM: Reports: no symptoms. Cardiovascular: Denies: chest pain, palpitations. Respiratory: Denies: cough, short of breath. GI: Denies: abdominal pain, bloating, constipation. Genitourinary: Reports: no symptoms. Musculoskeletal: Reports: no symptoms. Skin: Reports: no symptoms. Objective Objective: Vital Signs Date Time Temp Pulse Resp B/P B/P Pulse O2 O2 Flow FiO2 Mean Ox Delivery Rate 11/28 0638 99.0 69 18 140/68 94 Room Air 11/28 0000 Room Air 11/27 2137 97.6 65 18 120/62 94 Room Air 11/27 2115 66 120/62 11/27 1113 92 Room Air 11/27 1042 69 134/62 11/27 1042 69 134/62 Intake & Output 11/28 1600 11/28 0800 11/28 0000 Intake Total 120 1080 Output Total 475 Balance -355 1080 Intake, Oral 120 1080 Number 0 Bowel Movements Output, Urine 475 Patient 146 lb 142 lb Weight Weight Bed scale Measurement Method Physical Exam General Appearance: Alert, Cooperative, No Acute Distress HEENT: Mucous Membrane moist, left periorbital echymosis Cardiovascular: Regular Rate, Normal S1, Normal S2 Lungs: Mild crackles throughout the left lung, decreased breath sounds on the right Current Medications Sig/Damon Start time Last Medication Dose Route Stop Time Status Admin Acetaminophen 650 MG ONCE ONE 11/27 1200 DC 11/27 PO 11/27 1201 1203 Albuterol Sulfate 3 ML BID 11/230 AC 11/27 INH 2036 Aspirin Buffered 81 MG DAILY 11/27 1200 AC 11/27 PO 1420 Atorvastatin Calcium 40 MG DAILY 11/23 1000 AC 11/27 PO 1042 Ceftriaxone Sodium 1,000 MG 11/27 2030 CAN IV Clopidogrel Bisulfate 75 MG DAILY 11/27 1200 AC 11/27 PO 1420 Docusate Sodium 100 MG DAILY 11/24 1155 AC 11/27 PO 1042 Ferrous Sulfate 325 MG DAILY 11/25 1000 AC 11/27 PO 1042 Finasteride 5 MG DAILY 11/22 1910 AC 11/27 PO 1042 Furosemide 120 MG QAM 11/28 1000 AC PO Furosemide 80 MG 7:30 AM, & 4:30 PM 11/27 1630 CAN PO Furosemide 80 MG 16:30 11/27 1630 AC 11/27 PO 1646 Furosemide 40 MG 0630,1630 11/27 0630 DC 11/27 IV 0630 Guaifenesin/ 10 ML Q6P PRN 11/23 1615 AC 11/24 Dextromethorphan PO 2121 Insulin Aspart 0 TIDAC 11/25 1200 AC 11/27 SC 1736 Magnesium Oxide 400 MG BID 11/22 2200 AC 11/27 PO 2119 Melatonin 6 MG QPM 11/22 2200 AC 11/27 PO 2113 Omeprazole 20 MG DAILY AC 11/23 0700 AC 11/28 PO 0540 Phenazopyridine HCl 200 MG ONCE ONE 11/27 1745 CAN PO 11/27 1746 Polyethylene Glycol 17 GM DAILY 11/24 1157 AC 11/27 PO 1041 Ranolazine 1,000 MG BID 11/22 2200 AC 11/27 PO 2115 Tamsulosin HCl 0.4 MG DAILY 11/22 1910 AC 11/27 PO 1042 Tiotropium [place] 1 PUF DAILY 11/23 1800 AC 11/27 INH 1042 Results Results: Laboratory Tests 11/28/17 0616: Anion Gap 11, Estimated GFR > 60, BUN/Creatinine Ratio 18.3, CBC w Diff Pending, WBC Pending, RBC Pending, Hgb Pending, Hct Pending, MCV Pending, MCH Pending, MCHC Pending, RDW Pending, Plt Count Pending, MPV Pending 11/27/17 0658: Anion Gap 13, Estimated GFR > 60, BUN/Creatinine Ratio 21.7, CBC w Diff NO MAN DIFF REQ, RBC 4.63 L, MCV 74.0 L, MCH 23.3 L, MCHC 31.5 L, RDW 19.3 H, MPV 8.4, Gran % 82.6 H, Lymphocytes % 5.2 L, Monocytes % 11.1 H, Eosinophils % 1.0, Basophils % 0.1, Absolute Granulocytes 8.3 H, Absolute Lymphocytes 0.5 L, Absolute Monocytes 1.1 H, Absolute Eosinophils 0.1, Absolute Basophils 0 11/26/17 1540: Pleural pH 7.45 11/26/17 1540: Fluid WBC 450 H, Fld Total RBCs Counted 4913 H 11/26/17 1540: Lymphocytes 82, % Normal PMNs 4, Misc Hematology Test , Phlebotomy Draw Site LEFT THORACENTESIS, Fluid Glucose 123, Fluid Total Protein 2.9, Fluid Albumin 1.3, Fluid LDH 277, Fluid Amylase < 30 11/26/17 1351: Ref Lab Test Result Pending 11/26/17 1351: Flow Cytometry Specimen Pending 11/26/17 0628: Anion Gap 14, Estimated GFR > 60, BUN/Creatinine Ratio 33.3 H, Lactate Dehydrogenase 296 L, CBC w Diff NO MAN DIFF REQ, RBC 4.31 L, MCV 73.4 L, MCH 23.0 L, MCHC 31.4 L, RDW 19.1 H, MPV 8.8, Gran % 83.1 H, Lymphocytes % 5.9 L, Monocytes % 10.0 H, Eosinophils % 0.9, Basophils % 0.1, Absolute Granulocytes 7.1 H, Absolute Lymphocytes 0.5 L, Absolute Monocytes 0.9 H, Absolute Eosinophils 0.1, Absolute Basophils 0 11/25/17 1345: Pleural pH 7.43 11/25/17 1345: Fluid WBC 1023 H, Fld Mesothelial Cells 24, Fld Total RBCs Counted 2717 H 11/25/17 1345: Lymphocytes 64, % Normal PMNs 12, Phlebotomy Draw Site RT THORACENTESIS, Fluid Glucose 95, Fluid Total Protein 2.9, Fluid Albumin 1.2, Fluid LDH 309, Fluid Amylase < 30 11/25/17 1033: Ref Lab Test Result Pending 11/25/17 1033: Flow Cytometry Specimen Pending Microbiology 11/26 1540 BODY FLUID: Body Fluid Culture - RES 11/26 1540 BODY FLUID: Gram Stain - RES 11/25 1345 BODY FLUID: Body Fluid Culture - RES 11/25 1345 BODY FLUID: Gram Stain - RES Assessment/Plan Assessment: Assessment: Brenden Mejia is a 77 year old white male with a past medical history of CAD status post CABG,HFrEF (EF 40% - 45%) Stage 2 diastolyic dysfunction, hypertention,hyperlipidemia,pheripheral vascular disease,bilateral carotid endarterectomies, diabetes mellitus who presents with shortness of breath. Problem List: 1.Acute hypoxic respiratory failure 2.Pleural Effusion 3.Left Ankle injury Plan: Acute hypoxic respiratory failure: Patient presented with elevated BNP and CT evidence of bilateral pleural effusions. Cardiology was consulted and thought this may be CHF versus pneumonia.His breathing has improved from admission and is currently 92% O2 on room air.Is currently being diuresed on Furosemide 40mg IV.Lower respiratory tract sputum culture is currently growing Havnei Marcelle sensitive to ceftriaxone, yeast and enterococcus - sensitivitie to amoxicillin. Per ID patient has had no fevers or leukocytosis to suggest pneumonia and I suspect that the positive sputum culture represents oropharyngeal contamination, particularly with the isolation of Enterococcus and yeast, which are not common pulmonary pathogens. [place] can be part of the normal oral pharyngeal zoey as well. -appreciate cardio reccomendations -appreciate pulmonary reccomendations -appreciate infectious disease reccomendations -change Lasix 40 mg's IV every 12 hours to his Home dose of 120 mg PO daily -check basic metabolic profile daily -Monitor I/O's Bilateral Pleural Effusion Thoracentesis was done on right and left respectively yielding approximately 3L of fluid.Fluid appears to be exudative based on LDH however due to recent fall and with diuretic therapy this is most likely transudative secondary to CHF exacerbation. There is no growth to date in pleural fluid culture. Patient was seen by pulmonary and infectious disease yesterday. -appreciate cardiology reccomendations -appreciate pulmonary reccomendations -appreciate infectious disease reccomendations -Change antibiotics to amoxicillin and Cipro -CT chest without contrast today as he has had his effusions drained to see whether he has any underlying lesions in both lower lobes Left Ankle Injury. Patient reports that since his fall a few days ago his left ankle has been tender,red and swollen and he is unable to bear weight on it.He is tender over the left distal fibular region. He has ecchymosis left distal fibula region. Left lower extremity is neurovascularly intact with a positive dorsalis pedis pulse. X-rays left ankle show a nondisplaced distal fibular fracture no widening of the ankle mortise. He was placed into a well padded U-splint. -appreciate ortho reccomendations -elevate left lower extremity -ice to left ankle -Weightbearing as tolerated with walker -Follow with ortho in 2 weeks and [address] will place him into a walking boot at that point in time -Pain medication for ankle pain per medicine -He is to leave the splint on until his follow-up visit do not remove the splint at any time. DVT PPx: heparin, ALPS Diet: diabetic diet Full code Weston DEE,Álvaro 11/28/17 1503: Resident Review Statement Resident Statement: examined this patient, agree and discussed with student
[2017-11-28 08:51] LABS: ABSOLUTE BASOPHIL COUNT 0 /CUMM (0.0-0.2); ABSOLUTE EOSINOPHIL COUNT 0.1 /CUMM (0.0-0.7); ABSOLUTE GRANULOCYTE CT 7.6 /CUMM (1.4-6.5); ABSOLUTE LYMPH COUNT 0.6 /CUMM (1.2-3.4); ABSOLUTE MONOCYTE COUNT 1.1 /CUMM (0.10-0.60); BASOPHIL % 0.3 % (0.0-2.0); EOSINOPHIL % 1.4 % (0-5); GRANULOCYTE % 80.1 % (42.2-75.2); HEMATOCRIT 32.7 % (42-52); MEAN CORPUSCULAR HGB 23.4 PG (27.0-31.0); MEAN CORPUSCULAR VOLUME 73.1 FL (80.0-94.0); MEAN PLATELET VOLUME 8.5 FL (7.4-10.4); PLATELET COUNT 288 /CUMM (130-400); RED BLOOD CELL CT 4.47 /CUMM (4.70-6.10); WHITE BLOOD CELL COUNT 9.5 /CUMM (4.8-10.8)
--- NOTE | 2017-11-28 08:55 | Patient Discharge Instructions ---
Discharge Instructions General Discharge Information You were seen/treated for: Shortness of breath and respiratory failure Bilateral pleural effusions chf Special Instructions: -you are being transferred to another hospital for cardiac cath. -Please follow-up with your primary care provider within 7 days after discharge. -Please follow-up with your microstrategy developer 7 days after discharge -Please follow-up with your cosmetologist 7 days after discharge -Please follow-up with your orthopedic surgeon 7-14 days after discharge -We have made changes to your home medications, please read the instructions carefully. -Please come back to the hospital if your symptoms got worse. Diet Recommended Diet: npo FOR CARDIAC CATH Activity Full Activity/No Limits: Yes (as tolerated with splint) Acute Coronary Syndrome Inclusion Criteria At DC or during hospital stay patient has or had the following: ACS DIAGNOSIS No Discharge Core Measures Meds if any: Prescribed or Continued at Discharge Meds if any: NOT Prescribed or Continued at Discharge Congestive Heart Failure Inclusion Criteria At DC or during hospital stay patient has or had the following: CHF DIAGNOSIS Yes Discharge Core Measures Meds if any: Prescribed or Continued at Discharge ORALIA/ARB for EF <40% Yes Meds if any: NOT Prescribed or Continued at Discharge Cerebrovascular accident Inclusion Criteria At DC or during hospital stay patient has or had the following: CVA/TIA Diagnosis No Discharge Core Measures Meds if any: Prescribed or Continued at Discharge Meds if any: NOT Prescribed or Continued at Discharge Venous thromboembolism Inclusion Criteria VTE Diagnosis No VTE Type NONE VTE Confirmed by (Test) NONE Discharge Core Measures - Per Current guidelines, there needs to be overlap - treatment for the first 5 days of Warfarin therapy. - If discharged on Warfarin prior to 5 days of - overlap therapy, the patient will need to be - assessed for post discharge needs including - *Post discharge parental anticoagulation - *Warfarin and/or parental anticoagulation education - *Follow up date to check INR post discharge At least 5 days overlap therapy as Inpatient No Meds if any: Prescribed or Continued at Discharge Note: Overlap Therapy is Warfarin and Anticoagulant Meds if any: NOT Prescribed or Continued at Discharge
--- NOTE | 2017-11-28 10:55 | Event Note ---
Event Note Event Note: Per [facility]: UPDATED MEDICATION LIST MEDICATION Last Filled Albuterol 90mcg q6h November 01 Aspirin 81mg daily October 16 Atorvastatin 40 mg daily October 22 Carvedilol 25mg BID November 15 Finasteride 5mg daily Furosemide 120mg qAM November 07 Furosemide 80mg qPM November 07 Gabapentin 400mg TID November 22 Isosorbide Mononitrate 30mg 1/2 tab qAM July 31 Lisinopril 2.5mg daily October 24 Magnesium Oxide 400mg BID September 03 Metformin 500mg BID Omeprazole 20mg daily October 24 KCL 10mEq 2 tab daily November 15 Ranolazine 1000mg BID November 19 Tamsulosin 0.4mg daily October 17 Titotropium 18mcg (nebulizer) daily
--- NOTE | 2017-11-28 11:08 | PN- Cardiology ---
Subjective Subjective: Patient was seen and examined today. Patient alert,, oriented 3. Patient states that his breathing status improved he is currently in the room air oxygen saturation more than 92%. He deny any chest pain, shortness of breath, heart racing, difficulty breathing. Objective Vital Signs and I&Os Vital Signs Date Time Temp Pulse Resp B/P B/P Pulse O2 O2 Flow FiO2 Mean Ox Delivery Rate 11/28 1600 Room Air 11/28 1410 97.9 67 18 110/52 96 Room Air 11/28 1009 116/62 11/28 0938 Room Air 2.0L 11/28 0916 69 140/68 11/28 0915 69 140/68 11/28 0857 94 Room Air 11/28 0638 99.0 69 18 140/68 94 Room Air 11/28 0000 Room Air 11/27 2137 97.6 65 18 120/62 94 Room Air 11/27 2115 66 120/62 Intake & Output 11/28 1600 11/28 0800 11/28 0000 11/27 1600 11/27 0800 11/27 0000 Intake Total 120 1080 400 400 Output Total 600 675 012 573 7144 Balance -600 -555 1080 -300 -125 -1925 Intake, Oral 120 1080 400 400 Number 0 1 Bowel Movements Output, Other 1400 Output, Urine 600 675 300 525 925 Patient 146 lb 142 lb 137 lb 137 lb Weight Weight Bed scale Bed scale Measurement Method Physical Exam: Gen: The patient is in no acute distress Neck: Supple with no JVD, no masses, and no thyromegaly Lungs: Bilateral rhonchi with normal respiratory effort Heart: RRR, S1, S2, 1/6 systolic murmur. 1+ pulses in the lower extremities bilaterally Abdomen: Soft, nontender, no masses. No hepatomegaly. No splenomegaly Extremities: No clubbing or cyanosis. Normal muscle strength in the upper and lower extremities Skin: Normal skin turgor with no skin ulcers or lesions noted. Neuro: Cranial nerves intact. Sensation intact Current Medications: Current Medications Sig/Damon Start time Last Medication Dose Route Stop Time Status Admin Albuterol Sulfate 3 ML BID 11/23 2200 AC 11/28 INH 0856 Aspirin Buffered 81 MG DAILY 11/27 1200 AC 11/28 PO 0916 Atorvastatin Calcium 40 MG DAILY 11/23 1000 AC 11/28 PO 0916 Carvedilol 12.5 MG BID 11/28 1200 AC PO Clopidogrel Bisulfate 75 MG DAILY 11/27 1200 AC 11/28 PO 0916 Docusate Sodium 100 MG DAILY 11/24 1155 AC 11/28 PO 0915 Ferrous Sulfate 325 MG DAILY 11/25 1000 AC 11/28 PO 0916 Finasteride 5 MG DAILY 11/22 191 AC 11/28 PO 0916 Furosemide 60 MG 7:30 AM, & 4:30 PM 11/28 1630 DC IV Furosemide 40 MG 7:30 AM, & 4:30 PM 11/28 1630 AC 11/28 IV 1718 Furosemide 120 MG QAM 11/28 1000 DC 11/28 PO 0916 Furosemide 80 MG 16:30 11/27 1630 DC 11/27 PO 1646 Guaifenesin/ 10 ML Q6P PRN 11/23 1615 AC 11/24 Dextromethorphan PO 2121 Insulin Aspart 0 TIDAC 11/25 1200 AC 11/28 SC 1214 Isosorbide Dinitrate 15 MG QAM 11/29 1000 CAN PO Isosorbide 30 MG QA 11/28 1002 DC Mononitrate PO Lisinopril 2.5 MG DAILY 11/28 1000 AC 11/28 PO 1009 Magnesium Oxide 400 MG BID 11/22 2199 AC 11/28 PO 0916 Melatonin 6 MG QPM 11/22 2199 AC 11/27 PO 2113 Omeprazole 20 MG DAILY AC 11/23 0700 AC 11/28 PO 0540 Polyethylene Glycol 17 GM DAILY 11/24 1157 AC 11/28 PO 0915 Ranolazine 1,000 MG BID 11/22 2200 AC 11/28 PO 0915 Tamsulosin HCl 0.4 MG DAILY 11/22 191 AC 11/28 PO 0916 Tiotropium [place] 1 PUF DAILY 11/23 1800 AC 11/28 INH 0916 Results Last 48 Hrs of Labs/Mics: Laboratory Tests 11/28/17 0616: Anion Gap 11, Estimated GFR > 60, BUN/Creatinine Ratio 18.3, CBC w Diff NO MAN DIFF REQ, RBC 4.47 L, MCV 73.1 L, MCH 23.4 L, MCHC 32.0 L, RDW 19.0 H, MPV 8.5, Gran % 80.1 H, Lymphocytes % 6.6 L, Monocytes % 11.6 H, Eosinophils % 1.4, Basophils % 0.3, Absolute Granulocytes 7.6 H, Absolute Lymphocytes 0.6 L, Absolute Monocytes 1.1 H, Absolute Eosinophils 0.1, Absolute Basophils 0 11/27/17 0658: Anion Gap 13, Estimated GFR > 60, BUN/Creatinine Ratio 21.7, CBC w Diff NO MAN DIFF REQ, RBC 4.63 L, MCV 74.0 L, MCH 23.3 L, MCHC 31.5 L, RDW 19.3 H, MPV 8.4, Gran % 82.6 H, Lymphocytes % 5.2 L, Monocytes % 11.1 H, Eosinophils % 1.0, Basophils % 0.1, Absolute Granulocytes 8.3 H, Absolute Lymphocytes 0.5 L, Absolute Monocytes 1.1 H, Absolute Eosinophils 0.1, Absolute Basophils 0 Assessment/Plan Assessment/Plan Assessment: 1. CAD, status post CABG 2. Hypertension 3. Peripheral arterial disease 4. Diabetes mellitus 5. Possible community acquired pneumonia 6. Possible acute on chronic heart failure with reduced ejection fraction 7. Hyperkalemia with acute kidney injury Recommendation: * We spoke with the patient icing maker and he agree to transfer the p.t tomorrow for cardiac Cath as he is scheduled upcoming Saturday evening the concern of his underlying abnormal wall motion abnormality. * Keep him NPO midnight * Continue Home dose of 120 mg PO daily and Check basic metabolic profile daily to assess his response and replete his electrolytes accordingly. * Monitor input and output with daily weights. * Status post left and right thoracentesis. Continue telemetry? Yes
[2017-11-28] MEDS ORDERED: LIPITOR40 M1 PO (11:51)
[2017-11-28] MEDS ORDERED: PROAIR HFA8.5 GM INH (11:51)
--- NOTE | 2017-11-28 13:59 | PN- Pulmonary ---
Subjective HPI/Critical Care Issues: Patient was seen and examined today. No sig events and stable No acute events overnight. Review of Systems Constitutional: Reports: no symptoms. Cardiovascular: Reports: no symptoms. Respiratory: Reports: no symptoms. Gastrointestinal: Reports: no symptoms. Musculoskeletal: Reports: see HPI. Objective Current Medications: Current Medications Sig/Damon Start time Last Medication Dose Route Stop Time Status Admin Albuterol Sulfate 3 ML BID 11/23 2200 AC 11/28 INH 0856 Aspirin Buffered 81 MG DAILY 11/27 1200 AC 11/28 PO 0916 Atorvastatin Calcium 40 MG DAILY 11/23 1000 AC 11/28 PO 0916 Carvedilol 12.5 MG BID 11/28 1200 AC PO Ceftriaxone Sodium 1,000 MG 2030 11/27 2030 CAN IV Clopidogrel Bisulfate 75 MG DAILY 11/27 1200 AC 11/28 PO 0916 Docusate Sodium 100 MG DAILY 11/24 1155 AC 11/28 PO 0915 Ferrous Sulfate 325 MG DAILY 11/25 1000 AC 11/28 PO 0916 Finasteride 5 MG DAILY 11/22 1910 AC 11/28 PO 0916 Furosemide 120 MG QAM 11/28 1000 AC 11/28 PO 0916 Furosemide 80 MG 16:30 11/27 1630 AC 11/27 PO 1646 Guaifenesin/ 10 ML Q6P PRN 11/23 1615 AC 11/24 Dextromethorphan PO 2121 Insulin Aspart 0 TIDAC 11/25 1200 AC 11/28 SC 1214 Isosorbide Dinitrate 15 MG QAM 11/29 1000 CAN PO Isosorbide 30 MG QAM 11/28 1002 DC Mononitrate PO Lisinopril 2.5 MG DAILY 11/28 1000 AC 11/28 PO 1009 Magnesium Oxide 400 MG BID 11/22 2200 AC 11/28 PO 0916 Melatonin 6 MG QPM 11/22 2200 AC 11/27 PO 2113 Omeprazole 20 MG DAILY AC 11/23 0700 AC 11/28 PO 0540 Phenazopyridine HCl 200 MG ONCE ONE 11/27 1745 CAN PO 11/27 1746 Polyethylene Glycol 17 GM DAILY 11/24 1157 AC 11/28 PO 0915 Ranolazine 1,000 MG BID 11/22 2200 AC 11/28 PO 0915 Tamsulosin HCl 0.4 MG DAILY 11/22 1910 AC 11/28 PO 0916 Tiotropium [place] 1 PUF DAILY 11/23 1800 AC 11/28 INH 0916 Vital Signs & I&O Last 24 Hrs of Vitals and I&O: Vital Signs Date Time Temp Pulse Resp B/P B/P Pulse O2 O2 Flow FiO2 Mean Ox Delivery Rate 11/28 1009 116/62 11/28 0938 Room Air 2.0L 11/28 0916 69 140/68 11/28 0915 69 140/68 11/28 0857 94 Room Air 11/28 0638 99.0 69 18 140/68 94 Room Air 11/28 0000 Room Air 11/27 2137 97.6 65 18 120/62 94 Room Air 11/27 2115 66 120/62 Intake & Output 11/28 1600 11/28 0800 11/28 0000 Intake Total 120 1080 Output Total 675 Balance -555 1080 Intake, Oral 120 1080 Number 0 Bowel Movements Output, Urine 675 Patient 146 lb 142 lb Weight Weight Bed scale Measurement Method Impression/Plan Impression/Plan Impression/Plan: General Appearance: Alert, Cooperative, No Acute Distress HEENT: Mucous Membrane moist, left periorbital echymosis Cardiovascular: Regular Rate, Normal S1, Normal S2 Lungs: Mild crackles throughout the left lung, decreased breath sounds on the right Extremities: No Edema, Normal Pulses, swelling,redness and tender to touch over left lateral malleolus. RPT CT REVIEWED IMPRESSION: 1. Interval decrease in the size of the bilateral pleural effusions, now small on the right and trace on the left. Slightly decreased consolidative change of the lungs, likely due to decreased compression from the lessened pleural effusion volume. No new or increasing consolidations are seen; however, I cannot rule out an underlying lung mass or lesion as requested due to the present consolidations, which may be chronic. 2. Severe centrilobular emphysematous changes. DICTATED BY: Ashely Langston MD DATE/TIME DICTATED:11/27/171643 Mr. Mejia is a 77-year-old male with past medical history of CAD status post CABG, HFrEF (EF 40-45%, stage 2 diastolic dysfunction), hypertension, lipidemia, peripheral vascular disease, bilateral carotid endarterectomies, diabetes mellitus who presents with shortness of breath. His active issues include * Bilateral large pleural effusion which has been present for more than one year , bilateral thoracentesis done does reveal that it's most likely a transudate with low protein. As his effusions have been present for quite a while and as he has had a recent fall and not too sure about daily LDH. This is most likely related to his persistent heart failure. * He does have bilateral effusions with lymphocyte predominance in his cell count. Unlikely this is tuberculosis or lymphoma however this needs to be ruled out. * Significant cardiomyopathy, low ejection fraction, severe inferior and posterior hypokinesis with pulmonary hypertension * Very severe emphysema by CT scan with previous history of smoking. Patient does not appear to be a CO2 retainer and is oxygenating well * Bilateral lower lobe chronic atelectasis due to large effusions with probable infection now growing enterococci and hafnia, probable pneumonia but seems less likely versus significant bronchitis * Significant cachexia probably related to severe COPD and chronic heart failure * Resolved Acute kidney injury, hyperkalemia, mild lactic acidosis upon admission which seems to have resolved this may been related to low flow state * Severe peripheral vascular disease, multiple surgeries in the past, previous falls * Previous respiratory failure related to systolic heart failure with persistent bacteremia due to staph aureus and pneumonia which seems to be not an issue at this present time * Previous history of bladder cancer with no clinical evidence suggestive of recurrence, recurrent UTI, diabetes, significant peripheral vascular disease. * Hypertension, hyperlipidemia, previous CABG, previous non-ST segment elevation AR RECOMMENDATION * Await final studies from the pleural fluid * Continue aggressive diuresis, with iv lasix as his bun and creat is ok and this might help him * Po potassium to keep him above 4 * Consolidation persists post tap prob due to chronic atx vs other process, and consider abx if he spikes or if he has sig elevated wbc * [id number] nebulizer therapy * Further cardiac workup including a consideration for both right and left heart cath cardiology to decide
[2017-11-28 14:10] VITALS: BP 110/52
--- NOTE | 2017-11-28 14:48 | PN- Infect Dx ---
Subjective Subjective: Afebrile without complaints. Objective Last 24 Hrs of Vital Signs/I&O Vital Signs Date Time Temp Pulse Resp B/P B/P Pulse O2 O2 Flow FiO2 Mean Ox Delivery Rate 11/28 1410 97.9 67 18 110/52 96 Room Air 11/28 1009 116/62 11/28 0938 Room Air 2.0L 11/28 0916 69 140/68 11/28 0915 69 140/68 11/28 0857 94 Room Air 11/28 0638 99.0 69 18 140/68 94 Room Air 11/28 0000 Room Air 11/27 2137 97.6 65 18 120/62 94 Room Air 11/27 2115 66 120/62 Intake & Output 11/28 1600 11/28 0800 11/28 0000 Intake Total 120 1080 Output Total 600 675 Balance -600 -555 1080 Intake, Oral 120 1080 Number 0 Bowel Movements Output, Urine 600 675 Patient 146 lb 142 lb Weight Weight Bed scale Measurement Method Physical Exam Other Physical Findings: He appears well in no acute distress Lungs crackles at the left base and decreased breath sounds at the right base Heart regular rhythm with a 1/6 systolic ejection murmur Extremities no cyanosis, clubbing or edema Results Last 24 Hours of Lab Results: Laboratory Tests 11/28 0616 Chemistry Sodium (137 - 145 mmol/L) 138 Potassium (3.5 - 5.1 mmol/L) 3.9 Chloride (98 - 107 mmol/L) 96 L Carbon Dioxide (22 - 30 mmol/L) 30 Anion Gap (5 - 16) 11 BUN (9 - 20 mg/dL) 11 Creatinine (0.7 - 1.2 mg/dL) 0.6 L Estimated GFR (>60 ml/min) > 60 BUN/Creatinine Ratio (7 - 25 %) 18.3 Hematology CBC w Diff NO MAN DIFF REQ WBC (4.8 - 10.8 /CUMM) 9.5 RBC (4.70 - 6.10 /CUMM) 4.47 L Hgb (14.0 - 18.0 G/DL) 10.5 L Hct (42 - 52 %) 32.7 L MCV (80.0 - 94.0 FL) 73.1 L MCH (27.0 - 31.0 PG) 23.4 L MCHC (33.0 - 37.0 G/DL) 32.0 L RDW (11.5 - 14.5 %) 19.0 H Plt Count (130 - 400 /CUMM) 288 MPV (7.4 - 10.4 FL) 8.5 Gran % (42.2 - 75.2 %) 80.1 H Lymphocytes % (20.5 - 51.1 %) 6.6 L Monocytes % (1.7 - 9.3 %) 11.6 H Eosinophils % (0 - 5 %) 1.4 Basophils % (0.0 - 2.0 %) 0.3 Absolute Granulocytes (1.4 - 6.5 /CUMM) 7.6 H Absolute Lymphocytes (1.2 - 3.4 /CUMM) 0.6 L Absolute Monocytes (0.10 - 0.60 /CUMM) 1.1 H Absolute Eosinophils (0.0 - 0.7 /CUMM) 0.1 Absolute Basophils (0.0 - 0.2 /CUMM) 0 Last 24 Hours of Evens Results: Left pleural fluid culture November 26 negative Right pleural fluid culture November 25 negative Recent Imaging Studies: CT of the chest November 27 reveals an interval decrease in the size of the bilateral pleural effusions; slightly decreased consolidative changes of the lungs Assessment/Plan Impression: Stable, with temperatures and white blood cell count normal, off antibiotics with no evidence of any infectious process and with his recent CT of the chest improved. Suggestion: 1. Further management of his CHF per Cardiology 2. Continue to follow off antibiotics
[2017-11-28 21:23] VITALS: BP 112/50
[2017-11-29 06:55] VITALS: BP 130/52
--- NOTE | 2017-11-29 07:52 | PN- Housestaff ---
Weston DEE,Álvaro 11/29/17 0751: Subjective Follow-up For: Acute hypoxic respiratory failure Pleural Effusion Nondisplaced fibular fracture Tele-Events Since Last Visit: SB to NSR: 80-91 Subjective: Patient was seen and evaluated today. Patient states that he is doing well. Patient states he is ready to be transferred for his cardiac cath. Patient denies any chest pain, shortness breath, palpitations, dizziness, lightheadedness, abdominal pain, nausea/vomiting, constipation/diarrhea. No acute events overnight. Review of Systems Constitutional: Reports: no symptoms. Cardiovascular: Reports: no symptoms. Respiratory: Reports: no symptoms. Gastrointestinal: Reports: no symptoms. Musculoskeletal: Reports: no symptoms. Neurological/Psychological: Reports: no symptoms. Objective Last 24 Hrs of Vital Signs/I&O Vital Signs Date Time Temp Pulse Resp B/P B/P Pulse O2 O2 Flow FiO2 Mean Ox Delivery Rate 11/29 0926 130/52 11/29 0926 130/52 11/29 0926 64 130/52 11/29 0925 64 130/52 11/29 0853 95 Room Air Room Air 11/29 0655 98.5 64 22 130/52 92 Room Air 11/28 2123 98.7 66 22 112/50 94 Room Air 11/28 2121 94 Room Air 11/28 2057 66 112/50 11/28 2056 66 112/50 11/28 1845 94 Room Air Intake & Output 11/29 1600 11/29 0800 11/29 0000 Intake Total 50 120 Output Total 200 125 550 Balance -200 -75 -430 Intake, Oral 50 120 Number 0 0 Bowel Movements Output, Urine 200 125 550 Physical Exam General Appearance: Alert, Cooperative, No Acute Distress HEENT: Atraumatic, Mucous Membr. moist/pink Cardiovascular: Regular Rate, Normal S1, Normal S2 Lungs: Clear to Auscultation, Normal Air Movement Abdomen: Normal Bowel Sounds, Soft, No Tenderness Extremities: No Clubbing, No Cyanosis, No Edema, Normal Pulses, No Tenderness/ Swelling Current Medications: Current Medications Sig/Damon Start time Last Medication Dose Route Stop Time Status Admin Albuterol Sulfate 3 ML BID 11/23 2200 DCD 11/29 INH 0853 Aspirin Buffered 81 MG DAILY 11/27 1200 DCD 11/29 PO 0926 Atorvastatin Calcium 40 MG DAILY 11/23 1000 DCD 11/29 PO 0926 Carvedilol 25 MG BID 11/29 1000 DCD 11/29 PO 0926 Carvedilol 12.5 MG BID 11/28 1200 DC 11/28 PO 205 Clopidogrel Bisulfate 75 MG DAILY 11/27 1200 DCD 11/29 PO 0925 Dextrose/Sodium 1,000 ML Q20H 11/29 0800 DCD 11/29 Chloride IV 0922 Docusate Sodium 100 MG DAILY 11/24 1155 DCD 11/29 PO 0926 Ferrous Sulfate 325 MG DAILY 11/25 1000 DCD 11/29 PO 0926 Finasteride 5 MG DAILY 11/22 191 DCD 11/29 PO 0926 Furosemide 40 MG 7:30 AM, & 4:30 PM 11/28 1630 DCD 11/29 IV 0922 Guaifenesin/ 10 ML Q6P PRN 11/23 1615 DCD 11/24 Dextromethorphan PO 212 Insulin Aspart 0 TIDAC 11/25 1200 DC 11/28 SC 1957 Insulin Human Regular 0 Q6 11/29 0041 DCD SC Lisinopril 2.5 MG DAILY 11/28 1000 DCD 11/29 PO 0926 Magnesium Oxide 400 MG BID 11/22 2199 DCD 11/29 PO 0926 Melatonin 6 MG QPM 11/22 220 DCD 11/28 PO 205 Omeprazole 20 MG DAILY AC 11/23 0700 DCD 11/29 PO 0520 Polyethylene Glycol 17 GM DAILY 11/24 1157 DCD 11/29 PO 0927 Ranolazine 1,000 MG BID 11/22 2200 DCD 11/29 PO 0925 Tamsulosin HCl 0.4 MG DAILY 11/22 191 DCD 11/29 PO 0926 Tiotropium [place] 1 PUF DAILY 11/23 1800 DCD 11/29 INH 0926 Last 24 Hrs of Lab/Evens Results Last 24 Hrs of Labs/Mics: Laboratory Tests 11/29/17 0620: Anion Gap 12, Estimated GFR > 60, BUN/Creatinine Ratio 20.0, Magnesium 2.1 Assessment/Plan Assessment: Mr. Mejia is a 77-year-old male with past medical history of CAD status post CABG, HFrEF (EF 40-45%, stage 2 diastolic dysfunction), hypertension, lipidemia, peripheral vascular disease, bilateral carotid endarterectomies, diabetes mellitus who presents with shortness of breath. Problem List: 1. Acute hypoxic respiratory failure 2. Hyperkalemia - resolved 3. Lactic acidosis 4. Leukopenia - resolved 5. Microcytic anemia 6. Altered mental status 7. Acute kidney injury - resolved 8. Pleural effusion 9. Nondisplaced fibular fracture #Acute hypoxic respiratory failure 2/2 to CHF Exacerbation: Patient presents with elevated BNP and CT evidence of bilateral pleural effusions. Cardiology was consulted and thinks this may be CHF versus pneumonia. Patient's ECHO showed LVEF of 35 to 40%. Today patient was weaned off oxygen, now saturating in the low 90s. Cultures are growing Havnei Marcelle sensitive to ceftriaxone and enterococcus - sensitive to ampicillin . Patient has had bilateral thoracentesis draining a total of 3L of fluid. Pleural fluid appears to be exudative based on LDH however due to recent fall and with diuretic therapy this is most likely transudative secondary to CHF exacerbation. There is no growth to date in pleural fluid culture. Patient's ECHO also showed wall motion abnormalities with severe inferior and posterior hypokinesis. Dr. Corcoran and Dr Jones spoke to patient's outpatient filter plant supervisor for cardiac cath which had been previously scheduled in 1 month. Patient is scheduled for transfer for cardiac cath today. Accepting physician is patient's outpatient filter plant supervisor,Dr. Rolle. * Cardiology is on board. Appreciate recommendations * Pulmonology consulted. Appreciate recommendations * Observing off antibiotics per ID recommendations * Transfer to [facility] for cardiac cath this afternoon * Continue to monitor on telemetry prior to discharge # Nondisplaced left fibular fracture: Patient complaining of left ankle pain. Suffered from recent fall prior to admission. Patient is unable to walk or bearweight on that side. Ankle Xray showed a nondisplaced distal fibular fracture. Ortho has splinted leg. * Ortho consulted. Appreciate recommendations * Elevate and ice ankle * Tylenol PRN for pain * Leg splint to be kept in place until he is seen by ortho outpatient in 2 weeks 2. Altered mental status: Most likely secondary to a postconcussive state. Repeat head imaging showed no intracranial processes. UA and urine toxicology were negative. Patient remains alert and oriented x3. 3. Hyperkalemia: Potassium 6.3 on admission. Patient received calcium gluconate and insulin in the emergency room. Potassium is currently in the normal range. -Continue to monitor 4 NORMA: Resolved. Likely prerenal azotemia in the setting of acute medical illness. -Continue monitor 5. Microcytic anemia: No evidence of bleeding. Iron was low with normal TIBC and ferritin. -Ferrous sulfate supplement -Stool guaiac 6. Chronic medical problems: -Continue home medications -Aspirin and plavix DVT PPx: heparin, ALPS NPO for cardiac cath today Full code Problem List: 1. Pleural effusion 2. Nondisplaced fracture of fibula Pain Ratin Pain Location: None Pain Goal: Remain pain free Pain Plan: n/a Tomorrow's Labs & Rationales: none- transfer today Discharge Plan Discharge Disposition: transfer to another hosp Israel Wheeler MD 11/29/17 1717: Attending MD Review Statement Attending Statement Attending MD Statement: examined this patient, discuss w/resident/PA/CHILD'S NURSE, agreed w/resident/PA/CHILD'S NURSE, discussed with family, reviewed EMR data (avail), discussed with nursing, discussed with case mgmt, amended to note Attending Assessment/Plan: The patient was seen and discussed with house staff. Agree with plan of care as outlined. Cardiology follow-up appreciated. Agree with transfer to [facility] today for cardiac catheterization.
--- NOTE | 2017-11-29 07:54 | PN- Student ---
Shirley Torres 11/29/17 0754: Subjective Subjective: Follow up for: Acute hypoxic respiratory failure Pleural Effusion No overnight events.Patient feels well this morning is in no pain or discomfort.He reports that his breathing is much improved and about baseline.HE is currently on room air with a O2 sat of 92%. Review of Systems Review of Systems Constitutional: Reports: no symptoms. EENTM: Reports: no symptoms. Cardiovascular: Denies: chest pain, palpitations. Respiratory: Denies: cough, short of breath. GI: Reports: no symptoms. Genitourinary: Reports: no symptoms. Musculoskeletal: Reports: no symptoms. Skin: Reports: no symptoms. Neurological/Psychological: Reports: no symptoms. Objective Objective: Vital Signs Date Time Temp Pulse Resp B/P B/P Pulse O2 O2 Flow FiO2 Mean Ox Delivery Rate 11/29 0655 98.5 64 22 130/52 92 Room Air 11/28 2122 98.7 66 22 112/50 94 Room Air 11/28 2121 94 Room Air 11/28 2057 66 112/50 11/28 2056 66 112/50 11/28 1845 94 Room Air 11/28 1600 Room Air 11/28 1410 97.9 67 18 110/52 96 Room Air 11/28 1009 116/62 11/28 0938 Room Air 2.0L 11/28 0916 69 140/68 11/28 0915 69 140/68 11/28 0857 94 Room Air Intake & Output 11/29 1600 11/29 0800 11/29 0000 Intake Total 50 120 Output Total 125 550 Balance -75 -430 Intake, Oral 50 120 Number 0 0 Bowel Movements Output, Urine 125 550 Current Medications Sig/Damon Start time Last Medication Dose Route Stop Time Status Admin Albuterol Sulfate 3 ML BID 11/23 2200 AC 11/28 INH 1845 Aspirin Buffered 81 MG DAILY 11/27 1200 AC 11/28 PO 0916 Atorvastatin Calcium 40 MG DAILY 11/23 1000 AC 11/28 PO 0916 Carvedilol 25 MG BID 11/29 1000 AC PO Carvedilol 12.5 MG BID 11/28 1200 DC 11/28 PO 205 Clopidogrel Bisulfate 75 MG DAILY 11/27 1200 AC 11/28 PO 0916 Dextrose/Sodium 1,000 ML Q20H 11/29 0800 AC Chloride IV Docusate Sodium 100 MG DAILY 11/24 1155 AC 11/28 PO 0915 Ferrous Sulfate 325 MG DAILY 11/25 1000 AC 11/28 PO 0916 Finasteride 5 MG DAILY 11/22 191 AC 11/28 PO 0916 Furosemide 60 MG 7:30 AM, & 4:30 PM 11/28 1630 DC IV Furosemide 40 MG 7:30 AM, & 4:30 PM 11/28 1630 AC 11/28 IV 1718 Furosemide 120 MG QAM 11/28 1000 DC 11/28 PO 0916 Furosemide 80 MG 16:30 11/27 1630 DC 11/27 PO 1646 Guaifenesin/ 10 ML Q6P PRN 11/23 1615 AC 11/24 Dextromethorphan PO 2121 Insulin Aspart 0 TIDAC 11/25 1200 DC 11/28 SC 1957 Insulin Human Regular 0 Q6 11/29 0041 AC SC Isosorbide Dinitrate 15 MG QAM 11/29 1000 CAN PO Isosorbide 30 MG QAM 11/28 1002 DC Mononitrate PO Lisinopril 2.5 MG DAILY 11/28 1000 AC 11/28 PO 1009 Magnesium Oxide 400 MG BID 11/22 2199 AC 11/28 PO 2056 Melatonin 6 MG QPM 11/22 2199 AC 11/28 PO 2056 Omeprazole 20 MG DAILY AC 11/23 0700 AC 11/29 PO 0520 Polyethylene Glycol 17 GM DAILY 11/24 1157 AC 11/28 PO 0915 Ranolazine 1,000 MG BID 11/22 2199 AC 11/28 PO 2057 Tamsulosin HCl 0.4 MG DAILY 11/22 191 AC 11/28 PO 0916 Tiotropium [place] 1 PUF DAILY 11/23 1800 AC 11/28 INH 0916 Results Results: Laboratory Tests 11/29/17 0620: Anion Gap 12, Estimated GFR > 60, BUN/Creatinine Ratio 20.0, Magnesium 2.1 11/28/17 06: Anion Gap 11, Estimated GFR > 60, BUN/Creatinine Ratio 18.3, CBC w Diff NO MAN DIFF REQ, RBC 4.47 L, MCV 73.1 L, MCH 23.4 L, MCHC 32.0 L, RDW 19.0 H, MPV 8.5, Gran % 80.1 H, Lymphocytes % 6.6 L, Monocytes % 11.6 H, Eosinophils % 1.4, Basophils % 0.3, Absolute Granulocytes 7.6 H, Absolute Lymphocytes 0.6 L, Absolute Monocytes 1.1 H, Absolute Eosinophils 0.1, Absolute Basophils 0 11/27/17 0658: Anion Gap 13, Estimated GFR > 60, BUN/Creatinine Ratio 21.7, CBC w Diff NO MAN DIFF REQ, RBC 4.63 L, MCV 74.0 L, MCH 23.3 L, MCHC 31.5 L, RDW 19.3 H, MPV 8.4, Gran % 82.6 H, Lymphocytes % 5.2 L, Monocytes % 11.1 H, Eosinophils % 1.0, Basophils % 0.1, Absolute Granulocytes 8.3 H, Absolute Lymphocytes 0.5 L, Absolute Monocytes 1.1 H, Absolute Eosinophils 0.1, Absolute Basophils 0 11/26/17 1540: Pleural pH 7.45 11/26/17 1540: Fluid WBC 450 H, Fld Total RBCs Counted 4913 H 11/26/17 1540: Lymphocytes 82, % Normal PMNs 4, Misc Hematology Test , Phlebotomy Draw Site LEFT THORACENTESIS, Fluid Glucose 123, Fluid Total Protein 2.9, Fluid Albumin 1.3, Fluid LDH 277, Fluid Amylase < 30 11/26/17 1351: Ref Lab Test Result Pending 11/26/17 1351: Flow Cytometry Specimen Microbiology 11/26 154 BODY FLUID: Body Fluid Culture - COMP 11/26 154 BODY FLUID: Gram Stain - COMP Physical Exam Physical Exam General Appearance: no apparent distress, alert, comfortable Head: evidence of injury Eyes: Bilateral: PERRL. Respiratory: chest non-tender, no respiratory distress, decreased breath sounds, crackles Cardiovascular: regular rate/rhythm, normal peripheral pulses Gastrointestinal: normal bowel sounds, soft, non-tender Core Measures ACS in differential dx? No CVA/TIA Diagnosis: No Sepsis Present: No Sepsis Focused Exam Completed? No Assessment/Plan Assessment: Brenden Mejia is a 77 year old white male with a past medical history of CAD status post CABG,HFrEF (EF 40% - 45%) Stage 2 diastolyic dysfunction, hypertention,hyperlipidemia,pheripheral vascular disease,bilateral carotid endarterectomies, diabetes mellitus who presents with shortness of breath. Problem List: 1.Acute hypoxic respiratory failure 2.Pleural Effusion 3.Left Ankle injury Plan: Acute hypoxic respiratory failure: Patient presented with elevated BNP and CT evidence of bilateral pleural effusions. Cardiology was consulted and thought this may be CHF versus pneumonia.His breathing has improved from admission and is currently 92% O2 on room air.Is currently being diuresed on home dose furosemide 120mg Qam PO -appreciate cardio reccomendations -appreciate pulmonary reccomendations -appreciate infectious disease reccomendations -check basic metabolic profile daily -Monitor I/O's Bilateral Pleural Effusion Thoracentesis was done on right and left respectively yielding approximately 3L of fluid.Fluid appears to be exudative based on LDH however due to recent fall and with diuretic therapy this is most likely transudative secondary to CHF exacerbation. There is no growth to date in pleural fluid culture.Cytology of pleural fluid shows numerous lymphocytes,mesothelial cells,histiocytes, neutrophils and red blood cells.Features diagnostic of malignancy are not indetified.CT of chest shows no new or increasing consolidations seen. -appreciate cardiology reccomendations -appreciate pulmonary reccomendations -appreciate infectious disease reccomendations -discontinue antibiotics Left Ankle Injury. Patient reports that since his fall a few days ago his left ankle has been tender,red and swollen and he is unable to bear weight on it.He is tender over the left distal fibular region. He has ecchymosis left distal fibula region. Left lower extremity is neurovascularly intact with a positive dorsalis pedis pulse. X-rays left ankle show a nondisplaced distal fibular fracture no widening of the ankle mortise. He was placed into a well padded U-splint and to follow up with ortho in 2 weeks time outpatient. -appreciate ortho reccomendations -elevate left lower extremity -ice to left ankle -Weightbearing as tolerated with walker -Pain medication for ankle pain per medicine -He is to leave the splint on until his follow-up visit do not remove the splint at any time. DVT PPx: heparin, ALPS Diet: diabetic diet Full code Álvaro Ontiveros MD 12/02/172053: Resident Review Statement Resident Statement: examined this patient, discussed with student
[2017-11-29] MEDS ORDERED: SPIRIVA18 MCG INH (08:06)
[2017-11-29] MEDS ORDERED: FERROUS SULFAT325 M2 PO (08:06)
[2017-11-29] MEDS ORDERED: NOVOLIN R100 UNIT/2 SC (08:06)
[2017-11-29 09:26] VITALS: BP 130/52
--- NOTE | 2017-11-29 10:12 | PN- Pulmonary ---
Subjective HPI/Critical Care Issues: Comfortable and laying flat fatigued Review of Systems Constitutional: Reports: no symptoms. EENTM: Reports: no symptoms. Cardiovascular: Denies: chest pain, palpitations. Respiratory: Denies: cough, short of breath. GI: Reports: no symptoms. Genitourinary: Reports: no symptoms. Musculoskeletal: Reports: no symptoms. Skin: Reports: no symptoms. Neurological/Psychological: Reports: no symptoms. Objective Current Medications: Current Medications Sig/Damon Start time Last Medication Dose Route Stop Time Status Admin Albuterol Sulfate 3 ML BID 11/23 2200 AC 11/29 INH 0853 Aspirin Buffered 81 MG DAILY 11/27 1200 AC 11/29 PO 0926 Atorvastatin Calcium 40 MG DAILY 11/23 1000 AC 11/29 PO 0926 Carvedilol 25 MG BID 11/29 1000 AC 11/29 PO 0926 Carvedilol 12.5 MG BID 11/28 1200 DC 11/28 PO 2056 Clopidogrel Bisulfate 75 MG DAILY 11/27 1200 AC 11/29 PO 0925 Dextrose/Sodium 1,000 ML Q20H 11/29 0800 AC 11/29 Chloride IV 0922 Docusate Sodium 100 MG DAILY 11/24 1155 AC 11/29 PO 0926 Ferrous Sulfate 325 MG DAILY 11/25 1000 AC 11/29 PO 0926 Finasteride 5 MG DAILY 11/22 1910 AC 11/29 PO 0926 Furosemide 60 MG 7:30 AM, & 4:30 PM 11/28 1630 DC IV Furosemide 40 MG 7:30 AM, & 4:30 PM 11/28 1630 AC 11/29 IV 0922 Furosemide 120 MG QAM 11/28 1000 DC 11/28 PO 0916 Furosemide 80 MG 16:30 11/27 1630 DC 11/27 PO 1646 Guaifenesin/ 10 ML Q6P PRN 11/23 1615 AC 11/24 Dextromethorphan PO 2121 Insulin Aspart 0 TIDAC 11/25 1200 DC 11/28 SC 1957 Insulin Human Regular 0 Q6 11/29 0041 AC SC Isosorbide Dinitrate 15 MG QAM 11/29 1000 CAN PO Isosorbide 30 MG QAM 11/28 1002 DC Mononitrate PO Lisinopril 2.5 MG DAILY 11/28 1000 AC 11/29 PO 0926 Magnesium Oxide 400 MG BID 11/22 2200 AC 11/29 PO 0926 Melatonin 6 MG QPM 11/22 2199 AC 11/28 PO 205 Omeprazole 20 MG DAILY AC 11/23 0700 AC 11/29 PO 0520 Polyethylene Glycol 17 GM DAILY 11/24 1157 AC 11/29 PO 09 Ranolazine 1,000 MG BID 11/22 2199 AC 11/29 PO 0925 Tamsulosin HCl 0.4 MG DAILY 11/22 1910 AC 11/29 PO 09 Tiotropium [place] 1 PUF DAILY 11/23 1800 AC 11/29 INH 0926 Vital Signs & I&O Last 24 Hrs of Vitals and I&O: Vital Signs Date Time Temp Pulse Resp B/P B/P Pulse O2 O2 Flow FiO2 Mean Ox Delivery Rate 11/29 09 130/52 11/29 0926 130/52 11/29 09 64 130/52 11/29 0925 64 130/52 11/29 0853 95 Room Air Room Air 11/29 0655 98.5 64 22 130/52 92 Room Air 11/28 212 98.7 66 22 112/50 94 Room Air 11/28 2121 94 Room Air 11/28 2057 66 112/50 11/28 2056 66 112/50 11/28 1845 94 Room Air 11/28 1600 Room Air 11/28 1410 97.9 67 18 110/52 96 Room Air Intake & Output 11/29 1600 11/29 0800 11/29 0000 Intake Total 50 120 Output Total 125 550 Balance -75 -430 Intake, Oral 50 120 Number 0 0 Bowel Movements Output, Urine 125 550 Impression/Plan Impression/Plan Impression/Plan: General Appearance: Alert, Cooperative, No Acute Distress HEENT: Mucous Membrane moist, left periorbital echymosis Cardiovascular: Regular Rate, Normal S1, Normal S2 Lungs: Mild crackles throughout the left lung, decreased breath sounds on the right Extremities: No Edema, Normal Pulses, swelling,redness and tender to touch over left lateral malleolus. RPT CT REVIEWED IMPRESSION: 1. Interval decrease in the size of the bilateral pleural effusions, now small on the right and trace on the left. Slightly decreased consolidative change of the lungs, likely due to decreased compression from the lessened pleural effusion volume. No new or increasing consolidations are seen; however, I cannot rule out an underlying lung mass or lesion as requested due to the present consolidations, which may be chronic. 2. Severe centrilobular emphysematous changes. DICTATED BY: Ashely Langston MD DATE/TIME DICTATED:11/27/171643 Mr. Mejia is a 77-year-old male with past medical history of CAD status post CABG, HFrEF (EF 40-45%, stage 2 diastolic dysfunction), hypertension, lipidemia, peripheral vascular disease, bilateral carotid endarterectomies, diabetes mellitus who presents with shortness of breath. His active issues include * Bilateral large pleural effusion which has been present for more than one year , bilateral thoracentesis done does reveal that it's most likely a transudate with low protein. As his effusions have been present for quite a while and as he has had a recent fall and not too sure about daily LDH. This is most likely related to his persistent heart failure. * He does have bilateral effusions with lymphocyte predominance in his cell count. Unlikely this is tuberculosis or lymphoma. Flow cytometry is neg for lymphoproliferative disease and adenosine deaminase and quanteFerron gold pending * Significant cardiomyopathy, low ejection fraction, severe inferior and posterior hypokinesis with pulmonary hypertension * Very severe emphysema by CT scan with previous history of smoking. Patient does not appear to be a CO2 retainer and is oxygenating well * Bilateral lower lobe chronic atelectasis due to large effusions with probable infection now growing enterococci and hafnia, probable pneumonia but seems less likely versus significant bronchitis * Significant cachexia probably related to severe COPD and chronic heart failure * Resolved Acute kidney injury, hyperkalemia, mild lactic acidosis upon admission which seems to have resolved this may been related to low flow state * Severe peripheral vascular disease, multiple surgeries in the past, previous falls * Previous respiratory failure related to systolic heart failure with persistent bacteremia due to staph aureus and pneumonia which seems to be not an issue at this present time * Previous history of bladder cancer with no clinical evidence suggestive of recurrence, recurrent UTI, diabetes, significant peripheral vascular disease. * Hypertension, hyperlipidemia, previous CABG, previous non-ST segment elevation MS RECOMMENDATION * Await final studies from the pleural fluid * Continue aggressive diuresis, with iv lasix as his bun and creat is ok and this might help him * Po potassium to keep him above 4 * Consolidation persists post tap prob due to chronic atx vs other process, and consider abx if he spikes or if he has sig elevated wbc * [id number] nebulizer therapy * Further cardiac workup including a consideration for both right and left heart cath cardiology to decide. Will follow as needed. Call for issues over the weekend
[2017-11-29] MEDS ORDERED: [UNRECOGNIZED DRUG - CODE] IV (10:14)
[2017-11-29] MEDS ORDERED: MAGNESIUM400 M1 PO (10:14)
--- NOTE | 2017-11-29 11:59 | RADIOLOGY REPORT ---
EXAMINATION: XR CHEST CLINICAL INFORMATION: Pleural effusion COMPARISON: 11/26/2017 TECHNIQUE: 2 views of the chest were obtained. FINDINGS: Pulmonary emphysema. Cardiac silhouette is normal in size. Atherosclerotic calcification of the aorta. Sternotomy wires are intact in this patient who is status post remote coronary artery bypass graft surgery. Persistent small left pleural effusion, slightly increased compared to 11/26/2017. The [id number] right pleural effusion remains unchanged. No interval change in the right basilar opacity from consolidation and/or atelectasis. No pneumothorax. Chronic, disseminated foci of calcification/ossification in lung bases. No acute skeletal findings. IMPRESSION: 1. Pulmonary emphysema. 2. The right pleural effusion and basilar opacity remain unchanged. The small left pleural effusion has slightly increased in size compared to 11/26/2016. 3. Chronic consolidation and/or rounded atelectasis in right lower lobe.
== END 2017-11-29 12:35 | disposition short-term general hospital (02) | DRG 291 ==
LOC: ERH 14:59 → 1NO 17:57 → ERHI 17:57 → ENRESERV 18:43 → ENTRNSPT 20:02 → CMPTRNSPT 20:42 → 1NO 21:06 → ENPENDDIS 11-29 11:11 → 1NO 11-29 12:35
PROVIDERS: Internal Medicine; Physician Assistant; Radiology Vascular & Interventional Radiology; Student in an Organized Health Care Education/Training Program
PROC: 0W9B3ZZ Drainage of Left Pleural Cavity, Percutaneous Approach (ICD-10-PCS; principal; 2017-11-25)
PROC: 0W993ZZ Drainage of Right Pleural Cavity, Percutaneous Approach (ICD-10-PCS; 2017-11-25)
DX: I11.0 Hypertensive heart disease with heart failure (principal); J96.01 Acute respiratory failure with hypoxia; N17.9 Acute kidney failure, unspecified; E87.2 Acidosis; R64 Cachexia; J90 Pleural effusion, not elsewhere classified; E87.5 Hyperkalemia; I25.5 Ischemic cardiomyopathy; I50.43 Acute on chronic combined systolic (congestive) and diastolic (congestive) heart failure; Z68.20 Body mass index [BMI] 20.0-20.9, adult; S82.402A Unspecified fracture of shaft of left fibula, initial encounter for closed fracture; I25.10 Atherosclerotic heart disease of native coronary artery without angina pectoris; Z95.1 Presence of aortocoronary bypass graft; E11.51 Type 2 diabetes mellitus with diabetic peripheral angiopathy without gangrene; D50.9 Iron deficiency anemia, unspecified; X58.XXXA Exposure to other specified factors, initial encounter; Z87.891 Personal history of nicotine dependence; J43.9 Emphysema, unspecified; I25.2 Old myocardial infarction; M19.90 Unspecified osteoarthritis, unspecified site
CPT/HCPCS: 1NSP; 86480; 87075; 36415; 71045; 71046; 73610-LT; 74177; 80307; 81003; 82436; 87040; 87070; 87071; 87086; 87147; 87449; 87450; 87804; 87804-59; 88184; 88305; 93005; 93010; 93306; 96374; 96375; 97110-GO; 97112-GO; 97116-GO; 97161-GP; 99291; J0131; J0456; J0610; J0696; J1644; J1815; J1940; J2765; J2930; J3490; J7042; J7060

== ENCOUNTER 2018-04-07 14:37 | Inpatient (IN) | payer OTHER, MEDICARE ==
[~2018-04-07] VITALS: Ht 180.3 cm; Wt 58.7 kg
[~2018-04-07 14:37] MED LIST changes: +BETA CAROT10000 UNIT PO; +BUMETANIDE2 M1 PO; +CENTRUM SILVER1 EAC4 PO; +CO Q-10200 MG PO; +COZAAR25 M1 PO; +FERROUS SULFAT325 M2 PO; +K-TAB ER10 MEQ PO; +LASIX80 M1 PO; +LIPITOR40 M1 PO; +LISINOPRIL2.5 M1 PO; +MAGNESIUM400 M1 PO; +NOVOLIN R100 UNIT/2 SC; +PROAIR HFA8.5 GM INH; +SPIRIVA18 MCG INH; +SPIRONOLACTONE25 M1 PO; +[UNRECOGNIZED DRUG - CODE] IV
[2018-04-07 15:10] LABS: ABSOLUTE BASOPHIL COUNT 0 /CUMM (0.0-0.2); ABSOLUTE EOSINOPHIL COUNT 0.1 /CUMM (0.0-0.7); ABSOLUTE GRANULOCYTE CT 7.1 /CUMM (1.4-6.5); ABSOLUTE LYMPH COUNT 0.4 /CUMM (1.2-3.4); ABSOLUTE MONOCYTE COUNT 0.8 /CUMM (0.10-0.60); BASOPHIL % 0.2 % (0.0-2.0); EOSINOPHIL % 0.8 % (0-5); HEMATOCRIT 29.8 % (42-52); MEAN CORPUSCULAR HGB 24.6 PG (27.0-31.0); MEAN PLATELET VOLUME 7.5 FL (7.4-10.4); PLATELET COUNT 342 /CUMM (130-400); RBC DISTRIBUTION WIDTH 17.7 % (11.5-14.5); RED BLOOD CELL CT 3.88 /CUMM (4.70-6.10); WHITE BLOOD CELL COUNT 8.5 /CUMM (4.8-10.8)
[2018-04-07 15:19] LABS: PT 14.9 SEC (9.4-12.5); PTT 36 SEC (25-37)
--- NOTE | 2018-04-07 15:30 | ED DYSPNEA/ASTHMA COMPLAINT ---
History of Present Illness General Chief Complaint: Dyspnea (COPD, CHF, Other) Stated Complaint: SIB URGENT CARE FOR PNA Source: patient, family Exam Limitations: no limitations Vital Signs & Intake/Output Vital Signs & Intake/Output Vital Signs Date Time Temp Pulse Resp B/P B/P Pulse O2 O2 Flow FiO2 Mean Ox Delivery Rate 04/07 1836 97.9 63 42 126/68 93 04/07 1811 97.8 66 22 127/60 94 Room Air Room Air 04/07 1555 96.6 63 21 139/63 95 Room Air Room Air 04/07 1553 Room Air 04/07 1441 95.1 65 20 112/56 89 Room Air Allergies Coded Allergies: No Known Allergies (02/16/17) Reconcile Medications Acetaminophen (Tylenol Extra Strength) 500 MG TABLET 2 TAB PO PRN PAIN ( Reported) Albuterol Sulfate (Proair Hfa) 90 MCG HFA.AER.AD 2 PUF INH Q4-6 PRN PRN SOB ( Reported) Aspirin (Ecotrin*) 81 MG TABLET.DR 1 TAB PO DAILY HEART (Reported) Atorvastatin Calcium (Lipitor) 40 MG TABLET 1 TAB PO DAILY heart (Reported) Beta-Carotene (Beta Carotene) (Unknown Strength) CAPSULE (Unknown Dose) PO DAILY SUPPLEMENT (Reported) Bumetanide 2 MG TABLET 1 TAB PO DAILY DIURETIC (Reported) IF Weight greater than 135 lbs take whole tablet Otherwise 1/2 tablet Carvedilol 25 MG TABLET 1 TAB PO BID HEART (Reported) Clopidogrel Bisulfate (Plavix) 75 MG TABLET 1 TAB PO DAILY BLOOD THINNER ( Reported) Finasteride 5 MG TABLET 1 TAB PO DAILY PROSTATE (Reported) Gabapentin 400 MG CAPSULE 1 CAP PO TID NEUROPATHY (Reported) Lisinopril 2.5 MG TABLET 1 TAB PO DAILY BP (Reported) Losartan Potassium (Unknown Strength) TABLET (Unknown Dose) PO DAILY BP ( Reported) Magnesium Oxide (Magnesium) 400 MG CAPSULE 1 CAP PO DAILY supplement Melatonin 3 MG TABLET 6 MG PO QPM SUPPLEMENT (Reported) Metformin HCl 500 MG TABLET 1 TAB PO BID DM (Reported) Multivit-Min/FA/Lycopen/Lutein (Centrum Silver Men Tablet) 300 MCG-600 MCG-300 MCG TABLET 1 TAB PO DAILY SUPPLEMENT (Reported) Omeprazole 20 MG TABLET.DR 1 TAB PO DAILY AC GI (Reported) Ranolazine (Ranexa) 500 MG TAB.ER.12H 2 TAB PO BID ANGINA/CHEST PAIN ( Reported) Spironolactone 25 MG TABLET 1 TAB PO DAILY DIURETIC (Reported) Tamsulosin HCl (Flomax) 0.4 MG CAP.ER.24H 1 CAP PO DAILY PROSTATE (Reported) Tiotropium [place] (Spiriva) 18 MCG CAP.W.DEV 1 PUF INH DAILY lung Ubidecarenone (Co Q-10) (Unknown Strength) CAPSULE (Unknown Dose) PO DAILY SUPPLEMENT (Reported) Triage Note: PT SENT TO ED FROM URGENT CARE FOR EVAL OF ? PNEUMONIA. PT HAS BEEN SOB X 2 WEEKS, H/O CHF. AFEBRILE. DENIES PAIN. HANDS ARE COLD. PT APPEARS SOB WITH EXERTION. PT TO EKG [place]. PT HAS DISK FROM URGENT CARE WITH HIM OF CXR. Triage Nurses Notes Reviewed? yes Onset: Abrupt Duration: week(s): (2), constant Timing: recent history HPI: 78-year-old male that had a recent pacemaker placed about a month ago comes into the emergency room with increasing shortness of breath and intermittent chest pain. Symptoms been going on for the past 2 weeks. History of congestive heart failure. Denies any weight gain. Denies any cough fever chills vomiting. Denies any other associated symptoms. Comes in for further evaluation. (Kyle Lorenzo) Past History Travel History Traveled to [place] past 21 day No Medical History Any Pertinent Medical History? 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 Psychosocial History Who do you live with Spouse Services at Home None What is your primary language Kyrgyz Tobacco Use: Quit >30 days ago ETOH Use: denies use Illicit Drug Use: denies illicit drug use Family History Family History, If Any: FATHER Myocardial infarction MOTHER Myocardial infarction Hx Contributory? No (Kyle Lorenzo) Review of Systems Review of Systems Constitutional: Reports: see HPI. EENTM: Reports: no symptoms. Respiratory: Reports: see HPI. Cardiovascular: Reports: see HPI. GI: Reports: no symptoms. Genitourinary: Reports: no symptoms. Musculoskeletal: Reports: no symptoms. Skin: Reports: no symptoms. Neurological/Psychological: Reports: no symptoms. Hematologic/Endocrine: Reports: no symptoms. Immunologic/Allergic: Reports: no symptoms. All Other Systems: Reviewed and Negative (Kyle Lorenzo) Physical Exam Physical Exam General Appearance: alert, awake, mild distress Head: atraumatic Eyes: Bilateral: normal appearance. Ears, Nose, Throat: hearing grossly normal Neck: normal inspection Respiratory: decreased breath sounds, crackles Cardiovascular: regular rate/rhythm Gastrointestinal: soft Extremities: normal inspection, no edema Neurologic/Psych: awake, alert, oriented x 3 Skin: intact Core Measures ACS in differential dx? No CVA/TIA Diagnosis No Sepsis Present: No Sepsis Focused Exam Completed? No (Kyle Lorenzo) Progress Differential Diagnosis: AMI, bronchitis, CHF, COPD, musculoskeletal pain, pulmonary embolism, pneumonia, pneumothorax Plan of Care: Orders Procedure Date/time Status MAGNESIUM 04/08 0600 Active CBC WITHOUT DIFFERENTIAL 04/08 0600 Active BASIC ELECTROLYTES PLUS BUN&CR 04/08 0600 Active CHF Diet 04/07 D Active Weight 04/07 1833 Active Vital Signs 04/07 1833 Active Teach/Educate 04/07 1833 Active Pain Treatment and Response 04/07 1833 Active Nutritional Intake, Monitor 04/07 1833 Active Isolation 04/07 1833 Active Intake & Output 04/07 1833 Active Patient Care Conference 04/07 1833 Active Activity/Ambulation 04/07 1833 Active Pathway - chart 04/07 1800 Active House Staff 04/07 1800 Active Patient Data 04/07 1702 Active OXYGEN SETUP (GEN) 04/07 1555 Active Saline Lock 04/07 1555 Active Admit to inpatient 04/07 1555 Active Vital Signs 04/07 1555 Active Activity/Ambulation 04/07 1555 Active Code Status 04/07 1555 Active Intake & Output 04/07 1553 Active B-TYPE NATRIURETIC PEP (BNP) 04/07 1503 Complete PARTIAL THROMBOPLASTIN TIME 04/07 1442 Complete PROTHROMBIN TIME 04/07 1442 Complete TROPONIN LEVEL 04/07 1441 Complete COMPREHENSIVE METABOLIC PANEL 04/07 1441 Complete CBC WITHOUT DIFFERENTIAL 04/07 1441 Complete EKG 04/07 1441 Active TRC EVALUATION (GEN) 04/07 UNK Active CHF Core Measures 04/07 UNK Active Weight 04/07 UNK Active VTE Mechanical Prophylaxis 04/07 UNK Active Current Medications Sig/Damon Start time Last Medication Dose Stop Time Status Admin Heparin Sodium 5,000 UNIT Q8 04/07 2200 AC (Porcine) Acetaminophen 650 MG Q6P PRN 04/07 1800 AC (Tylenol) Laboratory Tests 04/07/18 1503: Anion Gap 12, Estimated GFR > 60, BUN/Creatinine Ratio 32.9 H, Glucose 104 H, Calcium 8.9, Total Bilirubin 0.5, AST 13 L, ALT 11 L, Alkaline Phosphatase 82, Troponin I < 0.01, Efc-T-Bnrfydyenko Pept 7940 H, Total Protein 7.9, Albumin 3.4 L, Globulin 4.5 H, Albumin/Globulin Ratio 0.8 L, PT 14.9 H, INR 1.36 H, APTT 36, CBC w Diff NO MAN DIFF REQ, RBC 3.88 L, MCV 77.0 L, MCH 24.6 L, MCHC 32.0 L, RDW 17.7 H, MPV 7.5, Gran % 84.0 H, Lymphocytes % 5.0 L, Monocytes % 10.0 H, Eosinophils % 0.8, Basophils % 0.2, Absolute Granulocytes 7.1 H, Absolute Lymphocytes 0.4 L, Absolute Monocytes 0.8 H, Absolute Eosinophils 0.1 , Absolute Basophils 0 04/07/18 1443: Exr-U-Qubsxcmliya Pept Cancelled Diagnostic Imaging: Viewed by Me: Radiology Read. Discussed w/RAD: Radiology Read. Radiology Impression: PATIENT: CAITY BELL PRESENT AGE: 78 PATIENT ACCOUNT NO: [id number] : 38 LOCATION: [facility] ORDERING PHYSICIAN: Shanti LYONS SERVICE DATE: 04/07/18 EXAM TYPE: RAD - XRY-CHEST XRAY, TWO VIEWS EXAMINATION: XR CHEST CLINICAL INFORMATION: Dyspnea COMPARISON: Frontal view 03/06/18 TECHNIQUE: 2 views of the chest were obtained. FINDINGS: There is a power source and left chest wall with lead projecting in the region of the right atrium, right ventricle and coronary sinus. There is evidence of sternotomy and mediastinal surgery. Metallic markers consistent with coronary artery bypass graft origins in the region of the ascending aorta. There is calcification of the aortic arch. Cardiac size is mildly prominent. There is no large hilar mass. There are perihilar interstitial opacities. There is moderate right and wukb-wj-qfnjgmza left pleural and/or parenchymal density with obscuration of the diaphragm and blunting of the cosmetic sulci. There is apical thickening with no pneumothorax. Surgical clips in the right cervical soft tissues. There is degenerative change in the spine IMPRESSION: Central vascular prominence with probable interstitial edema. This may be minimally worsened. Moderate right and wphna-ow-beldqbdl left pleural-parenchymal densities are similar to the previous study. No new focal pneumonia DICTATED BY: Russel Guidry MD DATE/TIME DICTATED:04/07/181534 CHAIN OFFBEARER:VANESSA DATE/TIME TRANSCRIBED:04/07/181534 CONFIDENTIAL, DO NOT COPY WITHOUT APPROPRIATE AUTHORIZATION. <Electronically signed in Other Vendor System> SIGNED BY: Russel Guidry MD 04/07/18 1540 Initial ED EKG: pacemaker rhythm (Kyle Lorenzo) Departure Departure Disposition: STILL A PATIENT Condition: Stable Clinical Impression Primary Impression: Acute CHF (congestive heart failure) Referrals: Juan Carlos Marie MD (PCP/Family) Departure Forms: Customer Survey General Discharge Information Admission Note Spoke With: Blayne DEE,Malcolm Gilbert Documentation of Exam: Documentation of any treatments & extenuating circumstances including Concerns Regarding Discharge (functional status, medication knowledge or non-compliance, living conditions, etc.) that warrant an admission rather than observation: Patient will require cardiac telemetry. IV diuresis. Cardiac consultation. Repeat labs. Serial troponins. (Kyle Lorenzo) PA/BUILDING CONSULTANT Co-Sign Statement Statement: ED Attending supervision documentation- x I saw and evaluated the patient. I have also reviewed all the pertinent lab results and diagnostic results. I agree with the findings and the plan of care as documented in the PA's/BUILDING CONSULTANT's documentation. SOB, RODRIGUEZ, pedal edema needs IV diuresis, cardiology evaluation [] I have reviewed the ED Record and agree with the PA's/BUILDING CONSULTANT's documentation. [] Additions or exceptions (if any) to the PAs/BUILDING CONSULTANT's note and plan are summarized below: [] (Juan DEE,John) Critical Care Note Critical Care Note Critical Care Time: non-applicable (Kyle Lorenzo)
--- NOTE | 2018-04-07 15:40 | RADIOLOGY REPORT ---
EXAMINATION: XR CHEST CLINICAL INFORMATION: Dyspnea COMPARISON: Frontal view 03/06/18 TECHNIQUE: 2 views of the chest were obtained. FINDINGS: There is a power source and left chest wall with lead projecting in the region of the right atrium, right ventricle and coronary sinus. There is evidence of sternotomy and mediastinal surgery. Metallic markers consistent with coronary artery bypass graft origins in the region of the ascending aorta. There is calcification of the aortic arch. Cardiac size is mildly prominent. There is no large hilar mass. There are perihilar interstitial opacities. There is moderate right and xmam-qe-vnrgpzdf left pleural and/or parenchymal density with obscuration of the diaphragm and blunting of the cosmetic sulci. There is apical thickening with no pneumothorax. Surgical clips in the right cervical soft tissues. There is degenerative change in the spine IMPRESSION: Central vascular prominence with probable interstitial edema. This may be minimally worsened. Moderate right and gyhfu-hy-oeiunllf left pleural-parenchymal densities are similar to the previous study. No new focal pneumonia
--- NOTE | 2018-04-07 16:42 | History & Physical ---
Kwabena DEE,[facility] 04/07/18 5181: General Information and HPI MD Statement: I have seen and personally examined CAITY BELL and documented this H&P. The patient is a 78 year old M who presented with a patient stated chief complaint of [shortness of breath]. Source of Information: patient, old records Exam Limitations: no limitations History of Present Illness: The patient is 78-year-old gentleman with past medical history HTN, CAD s/p CABG , ischemic cardiomyopathy with HFrEF, bilateral carotid endarterectomy, bladder cancer s/p intravesical treatment, recurrent UTI, T2DM, PAD s/p left femoral angioplasty c/b pseudoaneurysm with subsequent repair. He presented to [facility] ED for evaluation of shortness of breath ongoing for 1 to 2 week. He was recently discharged from [facility] on 11/2017 after being treated for CHF. During his visit he required thoracocentesis pleural effusion. The patient was in usual state of health until a week ago when he started feeling shortness of breath. Shortness of breath has been ongoing for 1-2 weeks. To the point where he becomes short of breath with mild exertion. Patient is usually active and can walk with a cane without getting short of breath at baseline. He was evaluated at urgent care earlier during the day. He was sent in for further evaluation to the ED. Patient reports feeling fatigued and rundown for past 1 week. He usually sleeps with 2 pillows and has added a pillow for past 1 week as well. He is compliant with his medication and diuretic regimen. He denies any sick contacts or any excessive use of salt Earlier during the day patient experienced chest Discomfort reports that as a jabbing sensation nonradiating 6 out of 10. He reports it got worsened with nitroglycerin. Review of system is essentially negative no fevers or chills no nausea vomiting diarrhea. Patient reports discomfort before initiation of urination however it resolves once he starts urinating. Patient's arrived later during the encounter and was concerned about patient being bedbound. He is currently undergoing cardiac rehab started about 2 weeks ago. It was explained that patient should be mobile and PT evaluation will be done as well. Of note patient had defibrillator placed 1 month ago as per patient. 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 Past Family/Social History Family History Relations & Conditions if any FATHER Myocardial infarction MOTHER Myocardial infarction Psychosocial History Who Do You Live With? spouse Services at Home: None Primary Language: Nepali Smoking Status: Never Smoked ETOH Use: denies use Illicit Drug Use: denies illicit drug use Functional Ability ADLs Independent: dressing, eating, toileting, bathing. Ambulation: cane IADLs Independent: shopping, housework, finances, food prep, telephone, transportation , medication admin. Review of Systems Review of Systems Constitutional: Reports: see HPI. Exam & Diagnostic Data Last 24 Hrs of Vital Signs/I&O Vital Signs Date Time Temp Pulse Resp B/P B/P Pulse O2 O2 Flow FiO2 Mean Ox Delivery Rate 04/07 1836 97.9 63 42 126/68 93 04/07 1811 97.8 66 22 127/60 94 Room Air Room Air 04/07 1555 96.6 63 21 139/63 95 Room Air Room Air 04/07 1553 Room Air 04/07 1441 95.1 65 20 112/56 89 Room Air Intake & Output 04/07 1600 04/07 0800 04/07 0000 Intake Total Output Total Balance Patient 132 lb Weight Weight Reported by Patient Measurement Method Physical Exam General Appearance Alert, Oriented X3, Cooperative Neck Supple, No JVD Cardiovascular Normal S1, Normal S2, diffuse crackels Lungs Diffuse crackels Abdomen Normal Bowel Sounds, Soft, No Tenderness Neurological Normal Speech, Strength at 5/5 X4 Ext Extremities mild b/l lower extremity edema Vascular Normal Pulses Last 24 Hrs of Labs/Evens: Laboratory Tests 04/07/18 1503: Anion Gap 12, Estimated GFR > 60, BUN/Creatinine Ratio 32.9 H, Glucose 104 H, Calcium 8.9, Total Bilirubin 0.5, AST 13 L, ALT 11 L, Alkaline Phosphatase 82, Troponin I < 0.01, Xff-X-Jsvidcrldkk Pept 7940 H, Total Protein 7.9, Albumin 3.4 L, Globulin 4.5 H, Albumin/Globulin Ratio 0.8 L, PT 14.9 H, INR 1.36 H, APTT 36, CBC w Diff NO MAN DIFF REQ, RBC 3.88 L, MCV 77.0 L, MCH 24.6 L, MCHC 32.0 L, RDW 17.7 H, MPV 7.5, Gran % 84.0 H, Lymphocytes % 5.0 L, Monocytes % 10.0 H, Eosinophils % 0.8, Basophils % 0.2, Absolute Granulocytes 7.1 H, Absolute Lymphocytes 0.4 L, Absolute Monocytes 0.8 H, Absolute Eosinophils 0.1 , Absolute Basophils 0 04/07/18 1443: Akc-U-Tiyexbkpsvg Pept Cancelled Diagnostic Data EKG Results AV Paced rhythm CXR Results Central vascular prominence with probable interstitial edema. This may be minimally worsened. Moderate right and oijbl-bq-apljbdfg left pleural- parenchymal densities are similar to the previous study. No new focal pneumonia Assessment/Plan Assessment: The patient is 78-year-old gentleman with past medical history HTN, CAD s/p CABG , ischemic cardiomyopathy with HFrEF, bilateral carotid endarterectomy, bladder cancer s/p intravesical treatment, recurrent UTI, T2DM, PAD s/p left femoral angioplasty c/b pseudoaneurysm with subsequent repair. He presented to [facility] ED for evaluation of shortness of breath ongoing for 1 to 2 week. He was recently discharged from [facility] on 11/2017 after being treated for CHF. Vitals on admission within normal limits Patient labs are significant for proBNP 7940 Chest x-ray findings dictated above Patient is going to be admitted to telemetery floor for treatment and evaluation for following conditions #Acute decompensated systolic congestive heart failure Patient's presentation of symptoms along with elevated proBNP and chest x-ray findings are consistent with acute CHF exacerbation -Telemetry monitoring -Stricken about -Daily weights -Lasix 40 mg IV twice daily -We will hold oral Bumex -Cardiology evaluation #CAD S/P Biventricular Pacemaker/AICD & CABG, Ischemic cardiomyopathy, LVEF 35- 40% (10/2017), Hypertension Continue aspirin, Plavix Ranexa Aldactone, losartan and carvedilol #Diabetes mellitus -We will hold metformin -Accu-Cheks and insulin sliding scale #Heart healthy diet/DVT prophylaxis witj Subcutaneous heparin/full code As Ranked By This Provider Problem List: 1. Acute CHF (congestive heart failure) Core Measures/Misc (07/14) Acute Coronary Syndrome ACS Diagnosis: No Congestive Heart Failure Congestive Heart Failure Diagnosis Yes Last Known EF % 45 Cerebrovascular Accident CVA/TIA Diagnosis: No VTE (View Protocol) VTE Risk Factors Age>40 No Mechanical VTE Prophylaxis d/t N/A MechProphylax Ordered No VTE Pharm Prophylaxis d/t NA PharmProphylax ordered Sepsis (View protocol) Sepsis Present: No If YES complete Sepsis Event Note If YES complete Sepsis Event Note David Helms MD 04/07/18 1728: Core Measures/Misc (07/14) Sepsis (View protocol) If YES complete Sepsis Event Note If YES complete Sepsis Event Note Resident Review Statement Other Findings: History of Present Illness 78 year old man with significant past medical history of ischemic cardiomyopathy S/P biventricular pacemaker / AICD with LVEF 35-40%, CAD/PR/NSTEMI, bilateral carotid artery disease, bladder cancer s/p treatment, recurrent UTIs, non- insulin dependent diabetes mellitus, and peripheral arterial disease sent in by urgent care for possible pneumonia. Patient reports progressively worsening shortness of breath over the past several weeks with associated productive cough of clear / white sputum. He reports compliance with his medications and dietary restrictions. He is able to ambulate only a short distance before becoming short of breath. He admits to feeling more fatigued and "run down". He recently added a third pillow to his bed because of his shortness of breath. He admits to a single recent episode of 6/10 sharp right sided chest pain occuring at rest that worsened with nitroglycerin that lasted approximately 20 minutes. Due to his progressively worsening symptoms he was seen at an urgent care for referred him to the [facility] ED for evaluation of possible "pneumonia". Presently he reports that his breathing is comfortable at rest and has no complaints. Review of Systems He denies any headache, fever, chills, current chest pain, palpitations, heartburn, shortness of breath at rest, nausea, vomiting, diarrhea, constipation , or urinary symptoms. Objective Vitals Physical Exam -General: well developed, thin elderly man in no acute distress -HEENT: NCAT, PERRL, EOMI, anicteric sclera -Neck: Supple, JVP ~7, trachea midline -Cardio: Normal S1/S2 w/o m/g/r; RRR, PPM/AICD in place -Pulm: scattered crackles -Abdomen: Soft, NT, ND, BS+ -Neuro: Awake and alert, AAOx3, CN II-XII grossly intact -Extremities: normal pulses, no edema Labs / Imaging / Studies -CBC: WBC 8.5, HGB 9.5, HCT 29.8, PLT 342 -BMP: Na 140, K 5.1, Cl 99, CO2 29, BUN 23, Creatinine 0.7, AG 12, Glu 104 -LFT: normal -Misc: Troponin <0.01, BNP 7940, INR 1.36 -CXR: * Central vascular prominence with probable interstitial edema. This may be minimally worsened. Moderate right and dclmo-fk-lsehtvxr left pleural-parenchymal densities are similar to the previous study. * No new focal pneumonia -EKG: AV paced, HR 60s -Echo 11/23/17: LVEF 35-40% with severe inferior / inferolateral hypokinesis Assessment 78 year old man with significant history of ischemica cardiomyopathy/CAD s/p biventricular pacemaker and AICD seen for evaluation of progressively worsening shortness of breath and possible "pneumonia". Presently patient reports feeling fatigue but otherwise has no symptoms at rest. Vitals signs are unremarkable. Physical exam is significant for elevated JVP with bilateral crackles (L>R), howver ankles are not swollen. Labs including CBC , BMP, LFTs, troponin, and INR are unremarkable. BNP is elevated to 7940. CXR demonstrated pulmonary vascular congestion with a moderate right sided pleural effusion and small to moderate left sided one. EKG demonstrated a ventricular paced rhyth. Patient received lasix 40 mg IV in the ED. Clinically patient appears to be in acute decompensated systolic congestive heart failure in the context of significant cardiovascular disease. PPM/AICD was reported placed "about" a month ago presumable for his wide QRS and reduced ejection fraction. Patient is to be admitted to the telemtry floor for intravenous diuresis and cardiology evaluation. Problem List -Acute decompensated systolic congestive heart failure -CAD S/P Biventricular Pacemaker/AICD & CABG -Ischemic cardiomyopathy, LVEF 35-40% (10/2017) -Hypertension -History of bladder cancer s/p treatment -Recurrent UTI -Diabetes mellitus -PAD s/p Plan -Admit to telemetry floor -Telemetry monitoring -Strict I&Os, daily weights -Total respiratory care -Accuchecks TIDAC/HS -Lasix 40 mg IV BID -Continue home meds: ranexa, aldacton, flomax, spiriva, omeprazole, melatonin, losartan, coreg, albuterol, plavix, aspirin, gabapentin -Hold oral Bumex while receiving IV lasix -Hold oral hypoglycemics -Cardiology consult for CHF -Pain control with acetaminophen -CHF diet -DVT PPx with subcutaneous heparin -FULL CODE Malcolm Cisneros 04/07/182009: General Information and HPI Allergies/Medications Home Med list Acetaminophen (Tylenol Extra Strength) 500 MG TABLET 2 TAB PO PRN PAIN ( Reported) Albuterol Sulfate (Proair Hfa) 90 MCG HFA.AER.AD 2 PUF INH Q4-6 PRN PRN SOB ( Reported) Aspirin (Ecotrin*) 81 MG TABLET.DR 1 TAB PO DAILY HEART (Reported) Atorvastatin Calcium (Lipitor) 40 MG TABLET 1 TAB PO DAILY heart (Reported) Beta-Carotene (Beta Carotene) 10,000 UNIT CAPSULE 1 CAP PO DAILY SUPPLEMENT ( Reported) Bumetanide 2 MG TABLET 1 TAB PO DAILY DIURETIC (Reported) IF Weight greater than 135 lbs take whole tablet Otherwise 1/2 tablet Carvedilol 12.5 MG TABLET 1 TAB PO BID Heart Clopidogrel Bisulfate (Plavix) 75 MG TABLET 1 TAB PO DAILY BLOOD THINNER ( Reported) Finasteride 5 MG TABLET 1 TAB PO DAILY PROSTATE (Reported) Gabapentin 400 MG CAPSULE 1 CAP PO TID NEUROPATHY (Reported) Losartan Potassium (Cozaar) 25 MG TABLET 1 TAB PO DAILY HTN (Reported) Magnesium Oxide (Magnesium) 400 MG CAPSULE 1 CAP PO DAILY supplement Melatonin 3 MG TABLET 6 MG PO QPM SUPPLEMENT (Reported) Metformin HCl 500 MG TABLET 1 TAB PO BID DM (Reported) Multivit-Min/FA/Lycopen/Lutein (Centrum Silver Men Tablet) 300 MCG-600 MCG-300 MCG TABLET 1 TAB PO DAILY SUPPLEMENT (Reported) Omeprazole 20 MG TABLET.DR 1 TAB PO DAILY AC GI (Reported) Ranolazine (Ranexa) 500 MG TAB.ER.12H 2 TAB PO BID ANGINA/CHEST PAIN ( Reported) Spironolactone 25 MG TABLET 1 TAB PO DAILY DIURETIC (Reported) Tamsulosin HCl (Flomax) 0.4 MG CAP.ER.24H 1 CAP PO DAILY PROSTATE (Reported) Tiotropium Comfort (Spiriva) 18 MCG CAP.W.DEV 1 PUF INH DAILY lung Ubidecarenone (Co Q-10) 200 MG CAPSULE 1 TAB PO DAILY SUPPLEMENT (Reported) Core Measures/Misc (07/14) Sepsis (View protocol) If YES complete Sepsis Event Note If YES complete Sepsis Event Note Attending MD Review Statement Attending Statement Attending MD Statement: examined this patient, discuss w/resident/PA/LABOR DELIVERY RN, agreed w/resident/PA/LABOR DELIVERY RN, reviewed EMR data (avail) Attending Assessment/Plan: 78 yr old male with pmh of bladder cancer s/p intravesical treatment, systolic chf, ischemic cmp , CAD s/p cabg, b/l CEA, PAD, s/p AICD and PPM placement 1 month ago who presented with c/c of worsening sob over the last 2 weeks. Pt was initially evlautated at urgent care and then sent to ER for further managment. On exam he has b/l crackles with left worse than right. pt being admitted for acute on chronic systolic chf. Pt at home on bumex. will switch him to iv lasix 40mg q12h and will monitor him on tele and will see how he does with diuresis and will monitor strick I & O. pt has trace LE edema. will get cardio consult in am.
[2018-04-07 18:36] VITALS: BP 126/68
--- NOTE | 2018-04-07 18:49 | PN- Student ---
Subjective Subjective: Mr. Mejia is an 78 year old male with a PMHx significant for HFrEF, HTN, hyperlipidemia, PVD, emphysema, T2DM, and CAD s/p quadrouple bypass in 1993 that presents to [facility] after being seen at an urgent care facility this afternoon, for a 2 week history of increasing shortness of breath and intermittent chest pain. His chest pain began this afternoon on the right side of his chest and describes it as a "sharp jab" with a grade of 6/10 on the pain scale. The pain lasted for a total of 20 minutes and Mr. Mejia reports the chest pain seemed to get worse after taking his nitro spray. He also reports feeling run down and fatigued. He has been using one additional pillow to his normal, while sleeping in bed during this time period. He reports using his albuterol inhaler 6x over the course of the 2 week period without any benefit, he typically uses the inhaler 2x/week at baseline. Mr. Mejia has been going to cardiac rehab, which he started 2 weeks ago. He also had a pacemaker with defibrillator placed 1 month ago. He denied any sick contacts. He was las hospitalized here at [facility] for CHF and had thoracentesis to remove fluid in oct/nov [address] Alcaraz. ROS: He denies any headache, visual changes, abdominal pain, diarrhea, peripheral edema, cough, sputum production, fever or chills. He does endorse some dysuria which he states he has had "forever", however after initating a urine stream there is no pain. PMHx: Oral HSV, CAD s/p quadrouple bypass 1993, HFrEF las echo LVEF 35-40%, HTN, hyperlipidemia, PVD s/p LLE balloon angio, T2DM, arthritis, emphysema, bladder and skin cancer FamHx: Father-IA, Mother-IA SurgicalHx: CABG 1993, [place] angio of LLE, Pacemaker and defibrillator 02/2018, bilateral carotid endarterectomies SocialHx: lives with and son, denied smoking, ETOH use or any illicit drug use. He uses a cane to ambulate. He consumes a low sodium diet and denies any recent high salt intake. Allergies: NKDA Home medications: Tylenol 500 mg 2 tabs PO PRN Aspirin 81 mg PO QD Albuterol (proair) inhaler PRN Tiotropium bromide (spiriva) Bumetanide 2 mg 1 tab PO QD, except when <135 lbs takes half a tab Carvediolol 25 mg PO BID Plavix 75 mg QD Gabapentin 400 mg TID Metformin 500 mg BID Omeprazole 20 mg QD Atorvastatin 40 mg QD Losartan 25 mg QD Ranolazine 500 mg BID Spirinolactone 25 mg QD Tamsulosin 0.4 mg QD Finasteride 5 mg QD Magnesium 400 mg QD Melatonin 3 mg QD Beta carotene, CoQ-10, Multi-vitamin, unk dose every day Objective Objective: Vital Signs Date Time Temp Pulse Resp B/P B/P Pulse O2 O2 Flow FiO2 Mean Ox Delivery Rate 04/07 1811 97.8 66 22 127/60 94 Room Air Room Air 04/07 1555 96.6 63 21 139/63 95 Room Air Room Air 04/07 1553 Room Air 04/07 1441 95.1 65 20 112/56 89 Room Air Last 24 Hours I&Os 04/07 1600 04/07 0800 04/07 0000 Intake Total Output Total Balance Patient 132 lb Weight Weight Reported by Patient Measurement Method Laboratory Tests 04/07/18 1503: Anion Gap 12, Estimated GFR > 60, BUN/Creatinine Ratio 32.9 H, Glucose 104 H, Calcium 8.9, Total Bilirubin 0.5, AST 13 L, ALT 11 L, Alkaline Phosphatase 82, Troponin I < 0.01, Paw-S-Qnmjhlgxbvr Pept 7940 H, Total Protein 7.9, Albumin 3.4 L, Globulin 4.5 H, Albumin/Globulin Ratio 0.8 L, PT 14.9 H, INR 1.36 H, APTT 36, CBC w Diff NO MAN DIFF REQ, RBC 3.88 L, MCV 77.0 L, MCH 24.6 L, MCHC 32.0 L, RDW 17.7 H, MPV 7.5, Gran % 84.0 H, Lymphocytes % 5.0 L, Monocytes % 10.0 H, Eosinophils % 0.8, Basophils % 0.2, Absolute Granulocytes 7.1 H, Absolute Lymphocytes 0.4 L, Absolute Monocytes 0.8 H, Absolute Eosinophils 0.1 , Absolute Basophils 0 04/07/18 1443: Ywo-X-Lbeswnbqkbx Pept Cancelled Orders Procedure Date/time Status MAGNESIUM 04/08 600 Active CBC WITHOUT DIFFERENTIAL 06/12 0600 Active BASIC ELECTROLYTES PLUS BUN&CR 04/08 0600 Active CHF Diet 04/07 D Active Pathway - chart 04/07 1800 Active House Staff 04/07 1800 Active Patient Data 04/07 1702 Active OXYGEN SETUP (GEN) 04/07 1555 Active Saline Lock 04/07 1555 Active Admit to inpatient 04/07 1555 Active Vital Signs 04/07 1555 Active Activity/Ambulation 04/07 1555 Active Code Status 04/07 1555 Active Intake & Output 04/07 1553 Active B-TYPE NATRIURETIC PEP (BNP) 04/07 1503 Complete PARTIAL THROMBOPLASTIN TIME 04/07 1442 Complete PROTHROMBIN TIME 04/07 1442 Complete TROPONIN LEVEL 04/07 1441 Complete COMPREHENSIVE METABOLIC PANEL 04/07 1441 Complete CBC WITHOUT DIFFERENTIAL 04/07 1441 Complete EKG 04/07 1441 Active TRC EVALUATION (GEN) 04/07 UNK Active CHF Core Measures 04/07 UNK Active Weight 04/07 UNK Active VTE Mechanical Prophylaxis 04/07 UNK Active Current Medications Sig/Damon Start time Last Medication Dose Stop Time Status Admin Acetaminophen 650 MG Q6P PRN 04/07 1800 AC (Tylenol) Heparin Sodium 5,000 UNIT Q8 04/07 2200 AC (Porcine) CXR 04/07/18 Central vascular prominence with probable interstitial edema. This may be minimally worsened. Moderate right and vovwk-bz-mkruwhxq left pleural-parenchymal densities are similar to the previous study. No new focal pneumonia EKG 04/07/18 AV paced rhythm at a rate of 64 bpm Physical Exam: Gen Apperance: Pale, thin, no evidence of acute distress, AOx3 CV: reg rate/rhythm, normal S1 and S2, no JVD, no MRG Pulm: crackles heard throughout the posterior lung rao, normal rate and depth to respirations, no use of accessory muscles, no cyanosis GI: normal bowel sounds, soft, non-tender Extremities: no evidence of peripheral edema or signs of open wounds, bruising or rashes Assessment/Plan Assessment: Mr. Mejia is an 78 year old male with a PMHx significant for CAD s/p quadrouple bypass (1993), HFrEF, HTN, hyperlipidemia, PVD, Emphysema, and T2DM that presents today with a 2 week history of increasing shortness of breath and right sided chest pain. The chest pain was sharp, a 6/10 and lasted for a duration of 20 min. Mr. Mejia denies any fever, chills, cough or sputum production. He recently had a pacemaker put in place 1 month ago and has been going to the cardiac rehab clinic for 2 weeks. Plan: Problem List: 1. acute CHF exacerbation 2. microcytic anemia 3. chronic medical conditions #acute CHF exacerbation: Patient has a history of HF with reduced EF with last echo done 10/2017. Today the patient presents with a 2 week history of increasing shortness of breath with a BNP of 7,940. He also reports using an additional pillow to sleep at night. However he has no evidence of JVD, or peripheral edema in support of Right heart failure. Likely this is isolated left heart failure. Patient has crackles throughout posterior lung rao suggestive of vascular congestion. He has no fever or leukocytosis on CBC to support infection, nor a history of sick contacts. He was hospitalized at [facility] in October due to similar circumstances and had to have thoracentesis by Dr. Alcaraz. -cardiology consult, pacemaker interogation -IV lasix, hold home diuretics -closely monitor Is&Os -low sodium diet -Echocardiogram #microcytic anemia: Patient has a history of microcytic anemia since 11/21/17. Likely due to iron deficency anemia, or possibly Anemia of Chronic disease given his extensive medical history. On previous lab work up done 10/2017 indicates low iron level. -continue to monitor CBC -consider iron supplementation -Repeat Iron studies, total iron, TIBC, Ferritin #chronic medical conditions -DM- regular finger stick monitoring, HbA1C, metformin 500 mg BID -Continue all other home medications other than home diuretics as patient will recieve IV lasix DVT ppx: ALPS, Heparin Low sodium, diabetic diet full code
--- NOTE | 2018-04-07 20:08 | Admission Certification ---
Admission Certification Certification Statement - As attending physician, I certify that at the time of - admission, based on clinical presentation, severity of - symptoms, need for further diagnostic testing and - therapeutic interventions, and risk of adverse outcomes - without in-hospital treatment, in my clinical assessment, - this patient requires an acute hospital stay for a minimum - of two nights or longer. I have also considered psychsocial - factors such as support system, advanced age, financial - issues, cognitive issues, and failed out-patient treatments, - past re-admission history, safety of patient, and lack of - compliance as applicable. Specific rationale supporting this admission is: acute systolic chf exacerbation
[2018-04-07 23:05] VITALS: BP 124/80
[2018-04-08 05:28] LABS: ABSOLUTE BASOPHIL COUNT 0 /CUMM (0.0-0.2); ABSOLUTE EOSINOPHIL COUNT 0.1 /CUMM (0.0-0.7); ABSOLUTE GRANULOCYTE CT 6.1 /CUMM (1.4-6.5); ABSOLUTE LYMPH COUNT 0.6 /CUMM (1.2-3.4); ABSOLUTE MONOCYTE COUNT 0.8 /CUMM (0.10-0.60); BASOPHIL % 0.5 % (0.0-2.0); EOSINOPHIL % 1.5 % (0-5); GRANULOCYTE % 79.3 % (42.2-75.2); MEAN CORPUSCULAR HGB 24.8 PG (27.0-31.0); MEAN CORPUSCULAR HGB CONC 32.6 G/DL (33.0-37.0); MEAN CORPUSCULAR VOLUME 75.9 FL (80.0-94.0); PLATELET COUNT 359 /CUMM (130-400); RBC DISTRIBUTION WIDTH 17.2 % (11.5-14.5); RED BLOOD CELL CT 3.82 /CUMM (4.70-6.10); WHITE BLOOD CELL COUNT 7.6 /CUMM (4.8-10.8)
[2018-04-08 07:05] VITALS: BP 118/60
--- NOTE | 2018-04-08 07:29 | PN- Housestaff ---
Kwabena DEE,Ani 04/08/18 0729: Subjective Follow-up For: Acute CHF exacerbation Tele-Events Since Last Visit: Paced rhythm in 60s Subjective: Seen and examined. Resting comfortably. Reports improvement in respiratory symptoms. No overnight acute events. Review of Systems Constitutional: Reports: see HPI. Objective Last 24 Hrs of Vital Signs/I&O Vital Signs Date Time Temp Pulse Resp B/P B/P Pulse O2 O2 Flow FiO2 Mean Ox Delivery Rate 04/08 0821 70 118/60 04/08 0820 70 118/60 04/08 0819 70 118/60 04/08 0818 70 118/60 04/08 0705 97.6 70 24 118/60 92 Room Air 04/07 2305 98.8 72 32 124/80 91 04/07 2231 91 Room Air 04/07 2205 72 124/80 04/07 2204 72 124/80 04/07 2102 Room Air Room Air 04/07 1836 97.9 63 42 126/68 93 04/07 1811 97.8 66 22 127/60 94 Room Air Room Air 04/07 1555 96.6 63 21 139/63 95 Room Air Room Air 04/07 1553 Room Air 04/07 1441 95.1 65 20 112/56 89 Room Air Intake & Output 04/08 1600 04/08 0800 04/08 0000 Intake Total Output Total 775 1100 Balance -775 -1100 Output, Urine 775 1100 Patient 136 lb Weight Weight Bed scale Measurement Method Physical Exam General Appearance: Alert, Oriented X3, Cooperative Cardiovascular: Normal S1, Normal S2, b/l crackels Abdomen: Normal Bowel Sounds, Soft, No Tenderness Neurological: Normal Speech Extremities: No Edema Current Medications: Current Medications Sig/Damon Start time Last Medication Dose Route Stop Time Status Admin Acetaminophen 650 MG Q6P PRN 04/07 1800 AC PO Albuterol Sulfate 2 PUF Q4P PRN 04/070 AC INH Albuterol Sulfate 2 PUF Q4-6 PRN PRN 04/07 194 AC INH Aspirin Buffered 81 MG DAILY 04/08 900 AC 04/08 PO 0819 Atorvastatin Calcium 40 MG DAILY 04/08 900 AC 04/08 PO 0819 Carvedilol 25 MG BID 04/07 2100 AC 04/08 PO 08 Clopidogrel Bisulfate 75 MG DAILY 04/08 900 AC 04/08 PO 0819 Docusate Sodium 100 MG DAILY 04/08 0900 AC 04/08 PO 0818 Finasteride 5 MG DAILY 04/08 09 AC 04/08 PO 0819 Furosemide 60 MG BID 04/08 2100 AC IV Furosemide 40 MG BID 04/07 2100 DC 04/08 IV 0827 Furosemide 0 .STK-MED ONE 04/07 1556 DC IV Furosemide 40 MG ONCE ONE 04/07 1545 DC 04/07 IV 04/07 1546 1552 Gabapentin 400 MG TID 04/07 2100 AC 04/08 PO 1318 Heparin Sodium 5,000 UNIT Q8 04/070 AC 04/08 (Porcine) SC 1318 Losartan Potassium 25 MG DAILY 04/08 0230 AC 04/08 PO 0818 Magnesium Oxide 400 MG DAILY 04/08 900 AC 04/08 PO 0819 Melatonin 6 MG QPM 04/07 2100 AC 04/07 PO 220 Omeprazole 20 MG DAILY AC 04/08 0700 AC 04/08 PO 0638 Ranolazine 1,000 MG BID 04/07 2100 AC 04/08 PO 0821 Spironolactone 25 MG DAILY 04/08 09 AC 04/08 PO 0818 Tamsulosin HCl 0.4 MG DAILY 04/08 09 AC 04/08 PO 0819 Tiotropium [place] 1 PUF DAILY 04/08 09 AC 04/08 INH 0828 Last 24 Hrs of Lab/Evens Results Last 24 Hrs of Labs/Mics: Laboratory Tests 04/08/18 0510: Anion Gap 12, Estimated GFR > 60, BUN/Creatinine Ratio 28.8 H, Magnesium 1.6, Troponin I < 0.01, CBC w Diff NO MAN DIFF REQ, RBC 3.82 L, MCV 75.9 L, MCH 24.8 L, MCHC 32.6 L, RDW 17.2 H, MPV 8.0, Gran % 79.3 H, Lymphocytes % 7.9 L, Monocytes % 10.8 H, Eosinophils % 1.5, Basophils % 0.5, Absolute Granulocytes 6.1, Absolute Lymphocytes 0.6 L, Absolute Monocytes 0.8 H, Absolute Eosinophils 0.1, Absolute Basophils 0 04/07/18 2100: Troponin I < 0.01 04/07/18 1503: Anion Gap 12, Estimated GFR > 60, BUN/Creatinine Ratio 32.9 H, Glucose 104 H, Calcium 8.9, Total Bilirubin 0.5, AST 13 L, ALT 11 L, Alkaline Phosphatase 82, Troponin I < 0.01, Klq-L-Mnglnoxokwz Pept 7940 H, Total Protein 7.9, Albumin 3.4 L, Globulin 4.5 H, Albumin/Globulin Ratio 0.8 L, PT 14.9 H, INR 1.36 H, APTT 36, CBC w Diff NO MAN DIFF REQ, RBC 3.88 L, MCV 77.0 L, MCH 24.6 L, MCHC 32.0 L, RDW 17.7 H, MPV 7.5, Gran % 84.0 H, Lymphocytes % 5.0 L, Monocytes % 10.0 H, Eosinophils % 0.8, Basophils % 0.2, Absolute Granulocytes 7.1 H, Absolute Lymphocytes 0.4 L, Absolute Monocytes 0.8 H, Absolute Eosinophils 0.1 , Absolute Basophils 0 04/07/18 1443: Jew-D-Qasypoexneq Pept Cancelled Assessment/Plan Assessment: The patient is 78-year-old gentleman with past medical history HTN, CAD s/p CABG , ischemic cardiomyopathy with HFrEF, bilateral carotid endarterectomy, bladder cancer s/p intravesical treatment, recurrent UTI, T2DM, PAD s/p left femoral angioplasty c/b pseudoaneurysm with subsequent repair. He presented to [place] ED for evaluation of shortness of breath ongoing for 1 to 2 week. He was recently discharged from [facility] on 11/2017 after being treated for CHF. She is currently being treated and evaluated for following conditions #Acute decompensated systolic congestive heart failure Patient's presentation of symptoms along with elevated proBNP and chest x-ray findings are consistent with acute CHF exacerbation -Telemetry monitoring -Strick i/os -Daily weights -Lasix 60 mg IV twice daily increased as per cardiology reccs -We will hold oral Bumex -Cardiology evaluation #CAD S/P Biventricular Pacemaker/AICD & CABG, Ischemic cardiomyopathy, LVEF 35- 40% (10/2017), Hypertension Continue aspirin, Plavix Ranexa Aldactone, losartan and carvedilol #Diabetes mellitus -We will hold metformin -Accu-Cheks and insulin sliding scale #Heart healthy diet/DVT prophylaxis witj Subcutaneous heparin/full code Problem List: 1. Acute CHF (congestive heart failure) Pain Ratin Pain Location: na Pain Goal: Pain 4 or less Pain Plan: prn Tomorrow's Labs & Rationales: ana Cedeno MD,Patricia 04/08/18 1154: Attending MD Review Statement Attending Statement Attending MD Statement: examined this patient, discuss w/resident/PA/CABLE TELEVISION LINE TECHNICIAN, agreed w/resident/PA/CABLE TELEVISION LINE TECHNICIAN, reviewed EMR data (avail) Attending Assessment/Plan: 78M PMH bladder cancer s/p intravesical treatment, systolic chf, ischemic cmp , CAD s/p cabg, b/l CEA, PAD, s/p AICD and PPM placement 1 month ago admitted for shortness of breath and pulmonary edema. Patient feels better today. Breathing comfortably, walks with a cane, no leg edema, no other complaints. No telemetry events. 1. Acute on chronic systolic CHF Plan - Continue on telemetry - Continue diuresis - I/O daily weights - Cardiology consult - Continue home medications - Encourage ambulation - DVT PPx
--- NOTE | 2018-04-08 12:47 | Cons- Cardiology ---
General Information and HPI Consulting Request Date of Consult: 04/08/18 Requested By: Patricia Cedeno MD Reason for Consult: Heart failure History of Present Illness: The patient is an 78-year-old male coronary artery disease, s/p CABG, ischemic cardiomyopathy, systolic heart failure, and defibrillator who is followed in the office by Dr. Daniel at [place]. He is currently undergoing cardiac rehab at [facility]. He was sent to the emergency department because of worsening shortness of breath over the past 1-2 weeks. The shortness of breath is exacerbated by exertion. He complains of increased orthopnea over for which he has required 3 pillows compared to his baseline of 2 pillows. No chest pain. No palpitations. No syncope. No lightheadedness or dizziness. No nausea or vomiting. He takes Bumex 2 mg daily at home. He was admitted for acute on chronic systolic heart failure, and IV Lasix has been initiated. He has been diuresing moderately well on the IV Lasix. His most recent cardiac catheterization in November 2017 revealed patent GARVEY, occluded vein grafts, occluded left circumflex and RCA, with 95% stenosis of the LAD, which was filling from the GARVEY. He reports that he is feeling somewhat better after diuresis, however he is not yet back to baseline. No nausea or vomiting. Allergies/Medications Allergies: Coded Allergies: No Known Allergies (02/16/17) Home Med List: Acetaminophen (Tylenol Extra Strength) 500 MG TABLET 2 TAB PO PRN PAIN ( Reported) Albuterol Sulfate (Proair Hfa) 90 MCG HFA.AER.AD 2 PUF INH Q4-6 PRN PRN SOB ( Reported) Aspirin (Ecotrin*) 81 MG TABLET.DR 1 TAB PO DAILY HEART (Reported) Atorvastatin Calcium (Lipitor) 40 MG TABLET 1 TAB PO DAILY heart (Reported) Beta-Carotene (Beta Carotene) (Unknown Strength) CAPSULE (Unknown Dose) PO DAILY SUPPLEMENT (Reported) Bumetanide 2 MG TABLET 1 TAB PO DAILY DIURETIC (Reported) IF Weight greater than 135 lbs take whole tablet Otherwise 1/2 tablet Carvedilol 25 MG TABLET 1 TAB PO BID HEART (Reported) Clopidogrel Bisulfate (Plavix) 75 MG TABLET 1 TAB PO DAILY BLOOD THINNER ( Reported) Finasteride 5 MG TABLET 1 TAB PO DAILY PROSTATE (Reported) Gabapentin 400 MG CAPSULE 1 CAP PO TID NEUROPATHY (Reported) Losartan Potassium (Cozaar) 25 MG TABLET 1 TAB PO DAILY HTN (Reported) Magnesium Oxide (Magnesium) 400 MG CAPSULE 1 CAP PO DAILY supplement Melatonin 3 MG TABLET 6 MG PO QPM SUPPLEMENT (Reported) Metformin HCl 500 MG TABLET 1 TAB PO BID DM (Reported) Multivit-Min/FA/Lycopen/Lutein (Centrum Silver Men Tablet) 300 MCG-600 MCG-300 MCG TABLET 1 TAB PO DAILY SUPPLEMENT (Reported) Omeprazole 20 MG TABLET.DR 1 TAB PO DAILY AC GI (Reported) Ranolazine (Ranexa) 500 MG TAB.ER.12H 2 TAB PO BID ANGINA/CHEST PAIN ( Reported) Spironolactone 25 MG TABLET 1 TAB PO DAILY DIURETIC (Reported) Tamsulosin HCl (Flomax) 0.4 MG CAP.ER.24H 1 CAP PO DAILY PROSTATE (Reported) Tiotropium [place] (Spiriva) 18 MCG CAP.W.DEV 1 PUF INH DAILY lung Ubidecarenone (Co Q-10) (Unknown Strength) CAPSULE (Unknown Dose) PO DAILY SUPPLEMENT (Reported) Current Medications: Current Medications Sig/Damon Start time Last Medication Dose Route Stop Time Status Admin Acetaminophen 650 MG Q6P PRN 04/07 1800 AC PO Albuterol Sulfate 2 PUF Q4P PRN 04/07 2130 AC INH Albuterol Sulfate 2 PUF Q4-6 PRN PRN 04/07 1945 AC INH Aspirin Buffered 81 MG DAILY 04/08 0900 AC 04/08 PO 0819 Atorvastatin Calcium 40 MG DAILY 04/08 09 AC 04/08 PO 0819 Carvedilol 25 MG BID 04/07 2100 AC 04/08 PO 0820 Clopidogrel Bisulfate 75 MG DAILY 04/08 900 AC 04/08 PO 0819 Docusate Sodium 100 MG DAILY 04/08 09 AC 04/08 PO 0818 Finasteride 5 MG DAILY 04/08 900 AC 04/08 PO 0819 Furosemide 40 MG BID 04/07 2100 AC 04/08 IV 0827 Furosemide 0 .STK-MED ONE 04/07 1556 DC IV Furosemide 40 MG ONCE ONE 04/07 1545 DC 04/07 IV 04/07 1546 1552 Gabapentin 400 MG TID 04/07 2100 AC 04/08 PO 0819 Heparin Sodium 5,000 UNIT Q8 04/07 2200 AC 04/08 (Porcine) SC 0638 Losartan Potassium 25 MG DAILY 04/08 0230 AC 04/08 PO 0818 Magnesium Oxide 400 MG DAILY 04/08 09 AC 04/08 PO 0819 Melatonin 6 MG QPM 04/07 2100 AC 04/07 PO 2204 Omeprazole 20 MG DAILY AC 04/08 07 AC 04/08 PO 0638 Ranolazine 1,000 MG BID 04/07 2100 AC 04/08 PO 0821 Spironolactone 25 MG DAILY 04/08 09 AC 04/08 PO 0818 Tamsulosin HCl 0.4 MG DAILY 04/08 900 AC 04/08 PO 0819 Tiotropium [place] 1 PUF DAILY 04/08 09 AC 04/08 INH 0828 Review of Systems Review of Systems: No rash. No tremor. No melena. No fever. No chills. All other systems were reviewed, and were noted to be negative. 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 Family History Relations & Conditions If Any: FATHER Myocardial infarction MOTHER Myocardial infarction Psychosocial History Where Do You Live? Home Who Do You Live With? spouse Services at Home: None Primary Language: Swedish Smoking Status: Never Smoked ETOH Use: denies use Illicit Drug Use: denies illicit drug use Functional Ability ADLs Independent: dressing, eating, toileting, bathing. Ambulation: cane IADLs Independent: shopping, housework, finances, food prep, telephone, transportation , medication admin. Exam & Diagnostic Data Vital Signs and I&O Vital Signs Date Time Temp Pulse Resp B/P B/P Pulse O2 O2 Flow FiO2 Mean Ox Delivery Rate 04/08 08 70 118/60 04/08 0820 70 118/60 04/08 08 70 118/60 04/08 08 70 118/60 04/08 07 97.6 70 24 118/60 92 Room Air 04/07 2305 98.8 72 32 124/80 91 04/07 2231 91 Room Air 04/07 2205 72 124/80 06/11 2204 72 124/80 06/11 2102 Room Air Room Air 04/07 1836 97.9 63 42 126/68 93 04/07 1811 97.8 66 22 127/60 94 Room Air Room Air 04/07 1555 96.6 63 21 139/63 95 Room Air Room Air 04/07 1553 Room Air 04/07 1441 95.1 65 20 112/56 89 Room Air Intake & Output 04/08 1600 04/08 0800 04/08 0000 04/07 1600 04/07 0800 04/07 0000 Intake Total Output Total 775 1100 Balance -775 -1100 Output, Urine 775 1100 Patient 136 lb 132 lb Weight Weight Bed scale Reported by Patient Measurement Method Physical Exam: Gen: The patient is in no acute distress HEENT: Normal nose, ears, and oropharynx. Pupils equal bilaterally. Conjunctiva normal. Neck: Supple with no JVD, no masses, and no thyromegaly Lungs: Bilateral rales with normal respiratory effort Heart: RRR, S1, S2, 1/6 systolic murmur. No peripheral edema, 2+ pulses in the lower extremities bilaterally Abdomen: Soft, nontender, no masses. No hepatomegaly. No splenomegaly Extremities: No clubbing or cyanosis. Normal muscle strength in the upper and lower extremities Skin: Normal skin turgor with no skin ulcers or lesions noted. Neuro: Cranial nerves intact. Sensation intact Psych: Alert and oriented 3 with appropriate affect Labs/Evens Results: Laboratory Tests 04/08 04/07 0510 2100 Chemistry Sodium (137 - 145 mmol/L) 141 Potassium (3.5 - 5.1 mmol/L) 4.5 Chloride (98 - 107 mmol/L) 99 Carbon Dioxide (22 - 30 mmol/L) 30 Anion Gap (5 - 16) 12 BUN (9 - 20 mg/dL) 23 H Creatinine (0.7 - 1.2 mg/dL) 0.8 Estimated GFR (>60 ml/min) > 60 BUN/Creatinine Ratio (7 - 25 %) 28.8 H Magnesium (1.6 - 2.3 mg/dL) 1.6 Troponin I (<0.11 ng/ml) < 0.01 < 0.01 Hematology CBC w Diff NO MAN DIFF REQ WBC (4.8 - 10.8 /CUMM) 7.6 RBC (4.70 - 6.10 /CUMM) 3.82 L Hgb (14.0 - 18.0 G/DL) 9.5 L Hct (42 - 52 %) 29.0 L MCV (80.0 - 94.0 FL) 75.9 L MCH (27.0 - 31.0 PG) 24.8 L MCHC (33.0 - 37.0 G/DL) 32.6 L RDW (11.5 - 14.5 %) 17.2 H Plt Count (130 - 400 /CUMM) 359 MPV (7.4 - 10.4 FL) 8.0 Gran % (42.2 - 75.2 %) 79.3 H Lymphocytes % (20.5 - 51.1 %) 7.9 L Monocytes % (1.7 - 9.3 %) 10.8 H Eosinophils % (0 - 5 %) 1.5 Basophils % (0.0 - 2.0 %) 0.5 Absolute Granulocytes (1.4 - 6.5 /CUMM) 6.1 Absolute Lymphocytes (1.2 - 3.4 /CUMM) 0.6 L Absolute Monocytes (0.10 - 0.60 /CUMM) 0.8 H Absolute Eosinophils (0.0 - 0.7 /CUMM) 0.1 Absolute Basophils (0.0 - 0.2 /CUMM) 0 04/07 04/07 1503 1443 Chemistry Sodium (137 - 145 mmol/L) 140 Potassium (3.5 - 5.1 mmol/L) 5.1 Chloride (98 - 107 mmol/L) 99 Carbon Dioxide (22 - 30 mmol/L) 29 Anion Gap (5 - 16) 12 BUN (9 - 20 mg/dL) 23 H Creatinine (0.7 - 1.2 mg/dL) 0.7 Estimated GFR (>60 ml/min) > 60 BUN/Creatinine Ratio (7 - 25 %) 32.9 H Glucose (65 - 99 mg/dL) 104 H Calcium (8.4 - 10.2 mg/dL) 8.9 Total Bilirubin (0.2 - 1.3 mg/dL) 0.5 AST (17 - 59 U/L) 13 L ALT (21 - 72 U/L) 11 L Alkaline Phosphatase (< 127 U/L) 82 Troponin I (<0.11 ng/ml) < 0.01 Odu-D-Cikllxfzdbn Pept (<125 pg/mL) 7940 H Cancelled Total Protein (6.3 - 8.2 g/dL) 7.9 Albumin (3.5 - 5.0 g/dL) 3.4 L Globulin (1.9 - 4.2 gm/dL) 4.5 H Albumin/Globulin Ratio (1.1 - 2.2 %) 0.8 L Coagulation PT (9.4 - 12.5 SEC) 14.9 H INR (0.90 - 1.17) 1.36 H APTT (25 - 37 SEC) 36 Hematology CBC w Diff NO MAN DIFF REQ WBC (4.8 - 10.8 /CUMM) 8.5 RBC (4.70 - 6.10 /CUMM) 3.88 L Hgb (14.0 - 18.0 G/DL) 9.5 L Hct (42 - 52 %) 29.8 L MCV (80.0 - 94.0 FL) 77.0 L MCH (27.0 - 31.0 PG) 24.6 L MCHC (33.0 - 37.0 G/DL) 32.0 L RDW (11.5 - 14.5 %) 17.7 H Plt Count (130 - 400 /CUMM) 342 MPV (7.4 - 10.4 FL) 7.5 Gran % (42.2 - 75.2 %) 84.0 H Lymphocytes % (20.5 - 51.1 %) 5.0 L Monocytes % (1.7 - 9.3 %) 10.0 H Eosinophils % (0 - 5 %) 0.8 Basophils % (0.0 - 2.0 %) 0.2 Absolute Granulocytes (1.4 - 6.5 /CUMM) 7.1 H Absolute Lymphocytes (1.2 - 3.4 /CUMM) 0.4 L Absolute Monocytes (0.10 - 0.60 /CUMM) 0.8 H Absolute Eosinophils (0.0 - 0.7 /CUMM) 0.1 Absolute Basophils (0.0 - 0.2 /CUMM) 0 Diagnostic Data EKG Results EKG tracing is independently reviewed, and reveals A-V sequential pacing CXR Results Central vascular prominence with probable interstitial edema. This may be minimally worsened. Moderate right and qzrhc-yl-tzwxqdky left pleural-parenchymal densities are similar to the previous study. No new focal pneumonia Other Results Echocardiogram 11/25/17: Normal size left ventricle. Borderline left ventricular hypertrophy. Left ventricular ejection fraction is estimated at 35-40 %. Severe inferior and posterior hypokinesis. Mild left atrial dilatation. Mild mitral regurgitation. Mild tricuspid regurgitation. Right ventricular systolic pressure estimated to be elevated at 58 mmHg. Mild pulmonic regurgitation. Left pleural effusion is seen. Assessment/Plan Assessment/Plan The patient is an 78-year-old male with history of CAD, status post CABG, ischemic cardiomyopathy, LVEF 3540% presenting with shortness of breath. Myocardial infarction has been ruled out with negative troponin. Chest x-ray and elevated BNP are consistent with acute on chronic HFrEF. He is somewhat improved after receiving IV Lasix. Recommendations: * Increase Lasix to 60 mg IV every 12 hours for better diuresis * Monitor input and output with daily weights * Check basic metabolic profile daily * Continue other cardiac medications Consult Acknowledgment - Thank you for your consult request.
[2018-04-08 14:00] VITALS: BP 104/58
[2018-04-08 22:20] VITALS: BP 142/62
[2018-04-09 07:07] VITALS: BP 128/58
--- NOTE | 2018-04-09 07:24 | PN- Housestaff ---
See Addendum Subjective Follow-up For: Acute CHF exacerbation Tele-Events Since Last Visit: Paced rhythm with ventricular pacing Went into normal sinus rhythm as well. He had an 8 beat run earlier in the morning Subjective: Seen and examined. Sitting in the chair having breakfast. Does not offer any complaints. Wants to be discharged home. Reports improvement respiratory in symptoms. Review of Systems Constitutional: Reports: see HPI. Objective Last 24 Hrs of Vital Signs/I&O Vital Signs Date Time Temp Pulse Resp B/P B/P Pulse O2 O2 Flow FiO2 Mean Ox Delivery Rate 04/09 0707 98.3 59 12 128/58 95 Nasal 2.0L Cannula 04/09 0000 96 Nasal 2.0L Cannula 04/08 2220 97.8 72 16 142/62 88 Room Air 04/08 2157 70 122/58 04/08 2157 70 122/58 04/08 1400 97.8 62 20 104/58 93 Room Air 04/08 0821 70 118/60 04/08 0820 70 118/60 04/08 0819 70 118/60 04/08 0818 70 118/60 Intake & Output 04/09 1600 04/09 0800 04/09 0000 Intake Total Output Total 650 Balance -650 Output, Urine 650 Patient 126 lb Weight Weight Bed scale Measurement Method Physical Exam General Appearance: Alert, Oriented X3, Cooperative Skin: No Rashes Cardiovascular: Normal S1, Normal S2 Lungs: bibasiler crackels L>R Abdomen: Normal Bowel Sounds, Soft, No Tenderness Neurological: Normal Speech Current Medications: Current Medications Sig/Damon Start time Last Medication Dose Route Stop Time Status Admin Acetaminophen 650 MG Q6P PRN 04/07 1800 AC PO Albuterol Sulfate 2 PUF Q4P PRN 04/070 AC INH Albuterol Sulfate 2 PUF Q4-6 PRN PRN 04/07 1945 AC INH Aspirin Buffered 81 MG DAILY 04/08 900 AC 04/08 PO 08 Atorvastatin Calcium 40 MG DAILY 04/08 900 AC 04/08 PO 08 Carvedilol 25 MG BID 04/07 2100 AC 04/08 PO 215 Clopidogrel Bisulfate 75 MG DAILY 04/08 900 AC 04/08 PO 08 Docusate Sodium 100 MG DAILY 04/08 900 AC 04/08 PO 08 Finasteride 5 MG DAILY 04/08 900 AC 06/12 PO 0819 Furosemide 60 MG BID 04/08 2100 AC 04/08 IV 2144 Furosemide 40 MG BID 04/07 2100 DC 04/08 IV 0827 Gabapentin 400 MG TID 04/07 2100 AC 04/08 PO 214 Heparin Sodium 5,000 UNIT Q8 04/07 2200 AC 04/09 (Porcine) SC 0626 Losartan Potassium 25 MG DAILY 04/08 0230 AC 04/08 PO 0818 Magnesium Oxide 400 MG DAILY 04/08 0900 AC 04/08 PO 0819 Melatonin 6 MG QPM 04/07 2100 AC 04/08 PO 2144 Omeprazole 20 MG DAILY AC 04/08 0700 AC 04/09 PO 0626 Patient Medication 1 ED ONE ONE 04/08 1630 DC 04/08 Teaching ED 04/08 1631 1630 Ranolazine 1,000 MG BID 04/07 2100 AC 04/08 PO 2157 Spironolactone 25 MG DAILY 04/08 0900 AC 04/08 PO 0818 Tamsulosin HCl 0.4 MG DAILY 04/08 0900 AC 04/08 PO 0819 Tiotropium [place] 1 PUF DAILY 04/08 0900 AC 04/08 INH 0828 Last 24 Hrs of Lab/Evens Results Last 24 Hrs of Labs/Mics: Laboratory Tests 04/09/18 0605: Anion Gap 11, Estimated GFR > 60, BUN/Creatinine Ratio 28.8 H Assessment/Plan Assessment: The patient is 78-year-old gentleman with past medical history HTN, CAD s/p CABG , ischemic cardiomyopathy with HFrEF, bilateral carotid endarterectomy, bladder cancer s/p intravesical treatment, recurrent UTI, T2DM, PAD s/p left femoral angioplasty c/b pseudoaneurysm with subsequent repair. He presented to [place] ED for evaluation of shortness of breath ongoing for 1 to 2 week. He was recently discharged from [facility] on 11/2017 after being treated for CHF. She is currently being treated and evaluated for following conditions #Acute decompensated systolic congestive heart failure Patient's presentation of symptoms along with elevated proBNP and chest x-ray findings are consistent with acute CHF exacerbation, reports improvement in respiratory symptoms. Currently in negative balance -[facility] -Daily weights 126 today -At present we are actively diuresing the patient Lasix dose had been increased from 40-60 yesterday for now we will continue 60 mg IV Lasix twice daily -We will hold oral Bumex -We will continue to monitor electrolytes magnesium was around 1.6. He is on oral supplementation. Will increase from daily to twice daily #Acute hypoxic respiratory failure likely secondary to CHF exacerbation Patient is not on home oxygen. He was satting 88% on room air and is currently 2 on 2 L maintaining oxygen saturation in 90s -Continue oxygen supplementation to maintain oxygen saturation above 92% -Taper oxygen as tolerated #CAD S/P Biventricular Pacemaker/AICD & CABG, Ischemic cardiomyopathy, LVEF 35- 40% (10/2017), Hypertension Continue aspirin, Plavix Ranexa Aldactone, losartan and carvedilol #Diabetes mellitus -We will hold metformin -Accu-Cheks and insulin sliding scale #Heart healthy diet/DVT prophylaxis witj Subcutaneous heparin/full code Problem List: 1. CHF (congestive heart failure) Pain Ratin Pain Location: na Pain Goal: Pain 4 or less Pain Plan: prn Tomorrow's Labs & Rationales: bep
--- NOTE | 2018-04-09 08:54 | PN- Student ---
Subjective Subjective: Patient reports improved breathing. He does report an occassional cough in which he feels phlem get stuck in his throat and cannot expectorate, however he states this is a rare occurance. Mr. Mejia also reports that the right sided chest pain never returned. He has had no problems with sleep and hopes to be discharged today. He denied any chest pain, peripheral edema, abdominal pain, diarrhea, difficulty urinating or headache. Objective Objective: Laboratory Tests 04/09 06 Chemistry Sodium (137 - 145 mmol/L) 139 Potassium (3.5 - 5.1 mmol/L) 4.3 Chloride (98 - 107 mmol/L) 99 Carbon Dioxide (22 - 30 mmol/L) 29 Anion Gap (5 - 16) 11 BUN (9 - 20 mg/dL) 23 H Creatinine (0.7 - 1.2 mg/dL) 0.8 Estimated GFR (>60 ml/min) > 60 BUN/Creatinine Ratio (7 - 25 %) 28.8 H Magnesium (1.6 - 2.3 mg/dL) Pending Vital Signs Date Time Temp Pulse Resp B/P B/P Pulse O2 O2 Flow FiO2 Mean Ox Delivery Rate 04/09 0811 66 116/60 04/09 0811 66 116/60 04/09 0810 66 116/60 04/09 0809 66 116/60 04/09 0707 98.3 59 12 128/58 95 Nasal 2.0L Cannula 04/09 0000 96 Nasal 2.0L Cannula 04/08 2220 97.8 72 16 142/62 88 Room Air 04/08 2157 70 122/58 04/08 2157 70 122/58 04/08 1400 97.8 62 20 104/58 93 Room Air Intake & Output 04/09 1600 04/09 0800 04/09 0000 Intake Total Output Total 650 Balance -650 Output, Urine 650 Patient 126 lb Weight Weight Bed scale Measurement Method Physical Exam Gen apperance: Patient sitting up in chair eating with no evidence of acute distress, AOx3 CV: regular rate and rhythm, normal S1&S2, no MRG Pulm: no evidence of use of accessory muscles, normal rate and depth, very mild crackles at the bases, no wheeze or ronchi present Abd: normal bowel sounds, soft, non-tender Extremities: no peripheral edema, no ecchymosis, rashes or skin breakdown evident Assessment/Plan Assessment: Mr. Mejia is a 78 year old male with a PMHx significant for HFrEF, HTN, hyperlipidemia, PVD, emphysema, T2DM, and CAD s/p quadrouple bypass in 1993 that presented to the hospital on 04/07/18 with a 2 week history of increasing shortness of breath. He also had one episode of right sided chest pain that was sharp and lasted for a total of 20 minutes. He has been being followed on the telemetry unit and seen by cardiology for acute on chronic HFrEF. Plan: Problem List: 1. Acute on chronic HFrEF 2. Microcytic anemia 3. Chronic medical conditions #acute on chronic HFrEF: Patient has a history of heart failure with reduced EF, with his last echocardiogram in 10/2017 showing an EF ~35-40%. He presented to the hospital with a 2 week history of increasing shortness of breath with an elevated BNP and findings on chest x-ray to support acute on chronic HFrEF. He has recieved IV lasix which was increased yesterday from 40 to 60 mg BID, which has improved his symptoms. Mr. Mejia reported improvement in his respiratory symptoms and is hoping for discharge today. He has had a total output of 650 cc of urine so far today with a total fluid balance of -845 and -1100 the last two days. He will have his ambulatory oxygen saturation checked today as well as seen by cardiology to assess his progression. -continue IV lasix 60 mg BID -continue to monitor I&Os -continue to hold home oral diuretic -monitor CMP -ambulatory oxygen saturation -appreciate cardiology recommendations #microcytic anemia:Patient has a history of microcytic anemia, with previous iron studies suggesting iron deficiency. Patient may benefit by adding iron supplementation. He has not reported any blood in his stools, urine or any other blood loss. This can also be further assessed in the out patient setting once his acute exacerbation of heart failure has resolved. -consider iron supplementation -continue to monitor CBC #chronic medical conditions: -T2DM: patient has been on sliding scale insulin and blood glucose has remained <200 mg/dL -continue all other home medicaitons DVT ppx: ALPS, Heparin low sodium, diabetic diet full code
--- NOTE | 2018-04-09 11:56 | PN- Cardiology ---
Subjective Subjective: Patient seems to be doing well. Less short of breath. Off supplemental oxygen. Using incentive spirometer at time seen by me. Objective Vital Signs and I&Os Vital Signs Date Time Temp Pulse Resp B/P B/P Pulse O2 O2 Flow FiO2 Mean Ox Delivery Rate 04/09 1111 18 92 Room Air 04/09 0811 66 116/60 04/09 0811 66 116/60 04/09 0810 66 116/60 04/09 0809 66 116/60 04/09 0800 Nasal 2.0L Cannula 04/09 0707 98.3 59 12 128/58 95 Nasal 2.0L Cannula 04/09 0000 96 Nasal 2.0L Cannula 04/08 2220 97.8 72 16 142/62 88 Room Air 04/08 2157 70 122/58 04/08 2157 70 122/58 04/08 1400 97.8 62 20 104/58 93 Room Air Intake & Output 04/09 1600 04/09 0800 04/09 0000 04/08 1600 04/08 0800 04/08 0000 Intake Total 630 Output Total 650 381 616 8896 Balance -650 -70 -775 -1100 Intake, Oral 630 Number 1 Bowel Movements Output, Urine 650 [phone] Patient 126 lb 136 lb Weight Weight Bed scale Bed scale Measurement Method Physical Exam: General Appearance: well developed/nourished, thin elderly male, alert, awake, oriented Head: normal HEENT: Normal Neck: supple, JVP normal, carotid upstrokes normal bilaterally, no masses or thyromegaly Respiratory: chest non-tender, clear to auscultation and percussion bilaterally Cardiovascular: regular rate/rhythm, normal S1, S2, 1/6 systolic murmur Abdomen: normal bowel sounds, soft, non-tender Extremities: normal inspection, no edema Vascular: Pulses are 2+ and equal bilaterally Neurologic: Grossly normal/nonfocal Current Medications: Current Medications Sig/Damon Start time Last Medication Dose Route Stop Time Status Admin Acetaminophen 650 MG Q6P PRN 04/07 1800 AC PO Albuterol Sulfate 2 PUF Q4P PRN 04/07 2130 AC INH Albuterol Sulfate 2 PUF Q4-6 PRN PRN 04/07 194 AC INH Aspirin Buffered 81 MG DAILY 04/08 900 AC 04/09 PO 08 Atorvastatin Calcium 40 MG DAILY 04/08 900 AC 04/09 PO 0810 Carvedilol 25 MG BID 04/07 2100 AC 04/09 PO 0811 Clopidogrel Bisulfate 75 MG DAILY 04/08 0900 AC 04/09 PO 0810 Docusate Sodium 100 MG DAILY 04/08 0900 AC 04/09 PO 0811 Finasteride 5 MG DAILY 04/08 0900 AC 04/09 PO 0810 Furosemide 60 MG BID 04/08 2100 AC 04/09 IV 0809 Furosemide 40 MG BID 04/07 2100 DC 04/08 IV 0827 Gabapentin 400 MG TID 04/07 2100 AC 04/09 PO 0810 Heparin Sodium 5,000 UNIT Q8 04/07 2200 AC 04/09 (Porcine) SC 0626 Losartan Potassium 25 MG DAILY 04/08 0230 AC 04/09 PO 0811 Magnesium Oxide 400 MG BID 04/09 09 AC 04/09 PO 0811 Magnesium Oxide 400 MG DAILY 04/08 0900 DC 04/08 PO 0819 Melatonin 6 MG QPM 04/07 2100 AC 04/08 PO 2144 Omeprazole 20 MG DAILY AC 04/08 0700 AC 04/09 PO 0626 Patient Medication 1 ED ONE ONE 04/08 1630 DC 04/08 Teaching ED 04/08 1631 1630 Ranolazine 1,000 MG BID 04/07 2100 AC 04/09 PO 0809 Spironolactone 25 MG DAILY 04/08 0900 AC 04/09 PO 0809 Tamsulosin HCl 0.4 MG DAILY 04/08 0900 AC 04/09 PO 0810 Tiotropium [place] 1 PUF DAILY 04/08 0900 AC 04/09 INH 0809 Results Last 48 Hrs of Labs/Mics: Laboratory Tests 04/09/18 0605: Anion Gap 11, Estimated GFR > 60, BUN/Creatinine Ratio 28.8 H, Magnesium 1.7 04/08/18 0510: Anion Gap 12, Estimated GFR > 60, BUN/Creatinine Ratio 28.8 H, Magnesium 1.6, Troponin I < 0.01, CBC w Diff NO MAN DIFF REQ, RBC 3.82 L, MCV 75.9 L, MCH 24.8 L, MCHC 32.6 L, RDW 17.2 H, MPV 8.0, Gran % 79.3 H, Lymphocytes % 7.9 L, Monocytes % 10.8 H, Eosinophils % 1.5, Basophils % 0.5, Absolute Granulocytes 6.1, Absolute Lymphocytes 0.6 L, Absolute Monocytes 0.8 H, Absolute Eosinophils 0.1, Absolute Basophils 0 04/07/18 2100: Troponin I < 0.01 04/07/18 1503: Anion Gap 12, Estimated GFR > 60, BUN/Creatinine Ratio 32.9 H, Glucose 104 H, Calcium 8.9, Total Bilirubin 0.5, AST 13 L, ALT 11 L, Alkaline Phosphatase 82, Troponin I < 0.01, Gcb-W-Onwslcbgmqe Pept 7940 H, Total Protein 7.9, Albumin 3.4 L, Globulin 4.5 H, Albumin/Globulin Ratio 0.8 L, PT 14.9 H, INR 1.36 H, APTT 36, CBC w Diff NO MAN DIFF REQ, RBC 3.88 L, MCV 77.0 L, MCH 24.6 L, MCHC 32.0 L, RDW 17.7 H, MPV 7.5, Gran % 84.0 H, Lymphocytes % 5.0 L, Monocytes % 10.0 H, Eosinophils % 0.8, Basophils % 0.2, Absolute Granulocytes 7.1 H, Absolute Lymphocytes 0.4 L, Absolute Monocytes 0.8 H, Absolute Eosinophils 0.1 , Absolute Basophils 0 04/07/18 1443: Fbe-L-Gjhmqukeixd Pept Cancelled Assessment/Plan Assessment/Plan Assessment: 1. Acute on chronic HFrEF-clinically doing somewhat better. Symptomatically improved. Off supplemental oxygen. Diuresed 2500 cc since admission 2. Ischemic cardiomyopathy with ejection fraction 35-40% 3. History of coronary artery disease, status post bypass surgery 4. AICD 5. Microcytic anemia Recommendations: -consider transition to oral Lasix -Continue to monitor input and output with daily weights while in hospital -Follow-up labs pending -Otherwise, continue current cardiac medications -Out of bed as tolerated -Continue incentive spirometer -The patient will need close follow-up with Dr. Daniel as outpatient post discharge Continue telemetry? Yes
[2018-04-09 14:00] VITALS: BP 100/50
[2018-04-09 22:57] VITALS: BP 122/68
[2018-04-10 06:14] VITALS: BP 100/50
--- NOTE | 2018-04-10 07:57 | PN- Housestaff ---
See Addendum Kwabena DEE,Ani 04/10/18 0756: Subjective Follow-up For: Acute CHF exacerbation Tele-Events Since Last Visit: Paced rhythm with normal sinus rhythm and with Subjective: The patient seen and examined. Resting comfortably. Currently on 2 L of nasal cannula. Reports improvement in respiratory symptoms. Wants to be discharged home. Patient was shifted from IV to oral diuretic yesterday. Review of Systems Constitutional: Reports: see HPI. Objective Last 24 Hrs of Vital Signs/I&O Vital Signs Date Time Temp Pulse Resp B/P B/P Pulse O2 O2 Flow FiO2 Mean Ox Delivery Rate 04/10 614 98.3 66 18 100/50 95 04/10 0000 Nasal 2.0L Cannula 04/09 2257 98.9 69 18 122/68 93 Room Air 04/09 2041 110/707 04/09 2039 110/70 04/09 1600 Room Air 04/09 1400 97.7 60 20 100/50 94 04/09 1111 18 92 Room Air Intake & Output 04/10 1600 04/10 0800 04/10 0000 Intake Total 120 120 Output Total 300 400 Balance -180 -280 Intake, Oral 120 120 Output, Urine 300 400 Patient 127 lb Weight Weight Bed scale Measurement Method Physical Exam General Appearance: Alert, Oriented X3, Cooperative Cardiovascular: Normal S1, Normal S2, crackels Abdomen: Soft, No Tenderness Neurological: Normal Speech Extremities: No Edema Current Medications: Current Medications Sig/Damon Start time Last Medication Dose Route Stop Time Status Admin Acetaminophen 650 MG Q6P PRN 04/07 1800 AC PO Albuterol Sulfate 2 PUF Q4P PRN 04/07 2130 AC INH Albuterol Sulfate 2 PUF Q4-6 PRN PRN 04/07 1945 AC INH Aspirin Buffered 81 MG DAILY 04/08 900 AC 04/09 PO 0811 Atorvastatin Calcium 40 MG DAILY 04/08 900 AC 04/09 PO 0810 Bumetanide 2 MG DAILY 04/09 1614 AC 04/09 PO 1745 Carvedilol 25 MG BID 04/07 2100 AC 04/09 PO 204 Clopidogrel Bisulfate 75 MG DAILY 04/08 900 AC 04/09 PO 0810 Docusate Sodium 100 MG DAILY 04/08 900 AC 04/09 PO 0811 Finasteride 5 MG DAILY 04/08 900 AC 04/09 PO 0810 Furosemide 60 MG BID 04/08 2100 DC 04/09 IV 0809 Gabapentin 400 MG TID 04/07 2100 AC 04/09 PO 204 Heparin Sodium 5,000 UNIT Q8 04/07 2200 AC 04/10 (Porcine) SC 0543 Losartan Potassium 25 MG DAILY 04/08 0230 AC 04/09 PO 0811 Magnesium Oxide 400 MG BID 04/09 0900 AC 04/09 PO 204 Melatonin 6 MG QPM 04/07 2100 AC 04/09 PO 204 Omeprazole 20 MG DAILY AC 04/08 0700 AC 04/10 PO 0543 Ranolazine 1,000 MG BID 04/07 2100 AC 04/09 PO 2039 Spironolactone 25 MG DAILY 04/08 0900 AC 04/09 PO 0809 Tamsulosin HCl 0.4 MG DAILY 04/08 0900 AC 04/09 PO 0810 Tiotropium [place] 1 PUF DAILY 04/08 0900 AC 04/09 INH 0809 Last 24 Hrs of Lab/Evens Results Last 24 Hrs of Labs/Mics: Laboratory Tests 04/10/18 0620: Anion Gap 10, Estimated GFR > 60, BUN/Creatinine Ratio 27.3 H, Magnesium 1.8 Assessment/Plan Assessment: The patient is 78-year-old gentleman with past medical history HTN, CAD s/p CABG , ischemic cardiomyopathy with HFrEF, bilateral carotid endarterectomy, bladder cancer s/p intravesical treatment, recurrent UTI, T2DM, PAD s/p left femoral angioplasty c/b pseudoaneurysm with subsequent repair. He presented to [place] ED for evaluation of shortness of breath ongoing for 1 to 2 week. He was recently discharged from [facility] on 11/2017 after being treated for CHF. She is currently being treated and evaluated for following conditions #Acute decompensated systolic congestive heart failure Patient's presentation of symptoms along with elevated proBNP and chest x-ray findings are consistent with acute CHF exacerbation, reports improvement in respiratory symptoms. Currently in negative balance. Weight improved -Telemetry monitoring -Strick i/os negative balance of -790 -Daily weights 127 today -Patient started on oral diuretics Bumex 2 mg -We will continue to monitor electrolytes magnesium was around 1.6. He is on oral supplementation. Will increase from daily to twice daily #Acute hypoxic respiratory failure likely secondary to CHF exacerbation Patient is not on home oxygen. He was satting 88% on room air and is currently on 2 L maintaining oxygen saturation in 90s -Continue oxygen supplementation to maintain oxygen saturation above 92% -Taper oxygen as tolerated #CAD S/P Biventricular Pacemaker/AICD & CABG, Ischemic cardiomyopathy, LVEF 35- 40% (10/2017), Hypertension Continue aspirin, Plavix Ranexa Aldactone, losartan and carvedilol #Diabetes mellitus -We will hold metformin -Accu-Cheks and insulin sliding scale #Heart healthy diet/DVT prophylaxis witj Subcutaneous heparin/full code Problem List: 1. Acute CHF (congestive heart failure) Pain Ratin Pain Location: na Pain Goal: Pain 4 or less Pain Plan: prn Tomorrow's Labs & Rationales: julianp Patricia Cedeno MD 04/10/18 1143: Attending MD Review Statement Attending Statement Attending MD Statement: examined this patient, discuss w/resident/PA/ATMOSPHERIC SCIENTIST, agreed w/resident/PA/ATMOSPHERIC SCIENTIST, reviewed EMR data (avail) Attending Assessment/Plan: 78M PMH bladder cancer s/p intravesical treatment, systolic chf, ischemic cmp , CAD s/p cabg, b/l CEA, PAD, s/p AICD and PPM placement 1 month ago admitted for shortness of breath and pulmonary edema. Patient feels better today. Breathing comfortably, walks with a cane, no leg edema, no other complaints. No telemetry events. Desaturated to 86% on room air at rest, 87% with ambulation. 1. Acute on chronic systolic CHF 2. Chronic hypoxemic respiratory failure Plan - Stable for discharge - PO Bumex - Outpatient cardiology follow up - Home oxygen - Continue home medications
--- NOTE | 2018-04-10 08:00 | Discharge Summary ---
Visit Information Visit Dates Admission Date: 04/07/18 Discharge Date: 04/10/18 Hospital Course Course Attending Physician: Patricia Cedeno MD Primary Care Physician: Frank DEE,[facility] Course: The patient is 78-year-old gentleman with past medical history HTN, CAD s/p CABG , ischemic cardiomyopathy with HFrEF, bilateral carotid endarterectomy, bladder cancer s/p intravesical treatment, recurrent UTI, T2DM, PAD s/p left femoral angioplasty c/b pseudoaneurysm with subsequent repair. He presented to [place] ED for evaluation of shortness of breath ongoing for 1 to 2 week. He was recently discharged from [facility] on 11/2017 after being treated for acute CHF exacerbation. During his last visit he required thoracocentesis for large pleural effusion. Vitals on admission's were within normal limits Admission labs were significant for proBNP increased up to 7940. Chest x-ray showed Central vascular prominence with probable interstitial edema. This may be minimally worsened. Moderate right and [id number] left pleural- parenchymal densities are similar to the previous study The patient was admitted to telemetry floor for acute on chronic systolic congestive heart failure. His presenting symptoms along with elevated proBNP and chest x-ray findings were most consistent with this diagnosis. Patient was evaluated by sound effects person. He was started on IV Lasix for diuresis. The dose was increased from 40 mg to 60 mg. Patient in and outs were strictly monitored along with daily weights. Patient remained in negative balance and weight subsequently decreased. He was later shifted to his oral diuretic regimen of Bumex 2mg. Patient has chronic hypoxemic respiratory failure secondary to underlying COPD and congestive heart failure. He desatted to 91% on room air and 86% on ambulation on day of discharge. So for acute on chronic hypoxemic respiratory failure patient is being discharged on as needed oxygen. Patient have extensive past medical history of CAD S/P Biventricular Pacemaker/ AICD & CABG, Ischemic cardiomyopathy, LVEF 35-40% (10/2017), Hypertension. ACS was ruled out with 3 sets of troponin and EKG showed paced rhythm. We continued aspirin Plavix, Ranexa, Aldactone, losartan and carvedilol. He has history of diabetes mellitus metformin was held on admission and with insulin sliding scale on discharge we are going to continue the home dose. On admission patient reported he is on 25 mg grams carvedilol twice daily and was started on it during his stay. However on the day of discharge patient's reported that he has been feeling woozy and fatigued so his sound effects person had tapered that down dose down to 6.25mg. He was gradually building it up as per patient's tolerance. He tolerated 25 mg twice daily well however was complaining of feeling fatigued. After discussing with sound effects person Dr. Jones we are discharging patient on carvedilol dose of 12.5 mg twice daily During his stay he was full code Allergies: Coded Allergies: No Known Allergies (02/16/17) Disposition Summary Disposition Principal Diagnosis: Acute on chronic systolic congestive heart failure Additional Diagnosis: Acute on chronic hypoxemic respiratory failure Discharge Disposition: home health services Discharge Instructions General Discharge Information Code Status: Full Code Patient's Diet: Heart healthy/diabetic Patient's Activity: As tolerated Follow-Up Instructions/Appts: Follow-up with cardiology, pulmonology and primary care after discharge Medications at Discharge Discharge Medications: Stop taking the following medications: Carvedilol (Carvedilol) 25 MG TABLET ORAL TWICE DAILY Continue taking these medications: Clopidogrel Bisulfate (Plavix) 75 MG TABLET 1 Tablet ORAL DAILY Comments: Last Taken: 04/11/18 Time: 8:30 AM Finasteride (Finasteride) 5 MG TABLET 1 Tablet ORAL DAILY Comments: Last Taken: 04/11/18 Time: 8:30 AM Omeprazole (Omeprazole) 20 MG TABLET.DR 1 Tablet ORAL DAILY BEFORE BREAKFAST Comments: Last Taken: 04/11/18 Time: 5:30 AM Ranolazine (Ranexa) 500 MG TAB.ER.12H 2 Tablet ORAL TWICE DAILY Comments: Last Taken: 04/11/18 Time: 8:30 AM Tamsulosin HCl (Flomax) 0.4 MG CAP.ER.24H 1 Capsule ORAL DAILY Comments: Last Taken: 04/11/18 Time: 8:30 AM Aspirin (Ecotrin*) 81 MG TABLET.DR 1 Tablet ORAL DAILY Comments: Last Taken: 04/11/18 Time: 8:30 AM Gabapentin (Gabapentin) 400 MG CAPSULE 1 Capsule ORAL THREE TIMES DAILY Comments: Last Taken: 04/11/18 Time: 2:00 PM Acetaminophen (Tylenol Extra Strength) 500 MG TABLET 2 Tablet ORAL as needed for PAIN Comments: NOT GIVEN IN HOSPITAL Melatonin (Melatonin) 3 MG TABLET 6 Milligram ORAL Every night Comments: Last Taken: 04/10/18 Time: 9:30 PM Albuterol Sulfate (Proair Hfa) 90 MCG HFA.AER.AD 2 Puff Inhale through mouth EVERY 4-6 HOURS NEEDED as needed for SOB Qty = 1 Comments: NOT GIVEN IN HOSPITAL Atorvastatin Calcium (Lipitor) 40 MG TABLET 1 Tablet ORAL DAILY Comments: Last Taken: 04/11/18 Time: 8:30 AM Tiotropium [place] (Spiriva) 18 MCG CAP.W.DEV 1 Puff Inhale through mouth DAILY Qty = 1 Comments: Last Taken: 04/11/18 Time: 8:30 AM Magnesium Oxide (Magnesium) 400 MG CAPSULE 1 Capsule ORAL DAILY Qty = 30 Comments: Last Taken: 04/11/18 Time: 8:30 AM Bumetanide (Bumetanide) 2 MG TABLET 1 Tablet ORAL DAILY Instructions: IF Weight greater than 135 lbs take whole tablet Otherwise 1/2 tablet Comments: Last Taken: 04/11/18 Time: 8:30 AM Metformin HCl (Metformin HCl) 500 MG TABLET 1 Tablet ORAL TWICE DAILY Comments: NOT GIVEN IN HOSPITAL Losartan Potassium (Cozaar) 25 MG TABLET 1 Tablet ORAL DAILY Comments: Last Taken: 04/11/18 Time: 8:30 AM Spironolactone (Spironolactone) 25 MG TABLET 1 Tablet ORAL DAILY Comments: Last Taken: 04/11/18 Time: 8:30 AM Multivit-Min/FA/Lycopen/Lutein (Centrum Silver Men Tablet) 300 MCG-600 MCG-300 MCG TABLET 1 Tablet ORAL DAILY Comments: NOT GIVEN IN HOSPITAL Ubidecarenone (Co Q-10) 200 MG CAPSULE 1 Tablet ORAL DAILY Comments: NOT GIVEN IN HOSPITAL Beta-Carotene (Beta Carotene) 10,000 UNIT CAPSULE 1 Capsule ORAL DAILY Comments: NOT GIVEN IN HOSPITAL Start taking the following new medications: Carvedilol (Carvedilol) 12.5 MG TABLET 1 Tablet ORAL TWICE DAILY Qty = 60 No Refills Copies To: Frank DEE,Juan Carlos Attending MD Review Statement Documenting Attending: Wilian DEE,Patricia Cedeno MD,Patricia
[2018-04-10 08:20] VITALS: BP 128/64
--- NOTE | 2018-04-10 11:13 | Patient Discharge Instructions ---
Discharge Instructions General Discharge Information You were seen/treated for: CHF exacerbation Special Instructions: Please follow-up with your primary care doctor after discharge Please follow-up with your heart doctor within 1 week of discharge Please follow-up with residential leasing agent after discharge -After discussing with the ripening room operator Dr. Jones we are going to discharge on carvedilol 12.5mg BID Diet Recommended Diet: Heart Healthy Activity Activity Self Limited: Yes Acute Coronary Syndrome Inclusion Criteria At DC or during hospital stay patient has or had the following: ACS DIAGNOSIS No Discharge Core Measures Meds if any: Prescribed or Continued at Discharge Meds if any: NOT Prescribed or Continued at Discharge Congestive Heart Failure Inclusion Criteria At DC or during hospital stay patient has or had the following: CHF DIAGNOSIS No Discharge Core Measures Meds if any: Prescribed or Continued at Discharge Meds if any: NOT Prescribed or Continued at Discharge Cerebrovascular accident Inclusion Criteria At DC or during hospital stay patient has or had the following: CVA/TIA Diagnosis No Discharge Core Measures Meds if any: Prescribed or Continued at Discharge Meds if any: NOT Prescribed or Continued at Discharge Venous thromboembolism Inclusion Criteria VTE Diagnosis No VTE Type NONE VTE Confirmed by (Test) NONE Discharge Core Measures - Per Current guidelines, there needs to be overlap - treatment for the first 5 days of Warfarin therapy. - If discharged on Warfarin prior to 5 days of - overlap therapy, the patient will need to be - assessed for post discharge needs including - *Post discharge parental anticoagulation - *Warfarin and/or parental anticoagulation education - *Follow up date to check INR post discharge At least 5 days overlap therapy as Inpatient No Meds if any: Prescribed or Continued at Discharge Note: Overlap Therapy is Warfarin and Anticoagulant Meds if any: NOT Prescribed or Continued at Discharge
[2018-04-10 14:00] VITALS: BP 98/60
--- NOTE | 2018-04-10 16:14 | PN- Cardiology ---
Subjective Subjective: stable with no obvious changes. Objective Vital Signs and I&Os Vital Signs Date Time Temp Pulse Resp B/P B/P Pulse O2 O2 Flow FiO2 Mean Ox Delivery Rate 04/10 1400 98.3 62 20 98/60 94 Nasal Cannula 04/10 1034 86 Room Air 04/10 1000 94 Nasal 2.0L Cannula 04/10 0821 74 128/64 04/10 0820 74 128/64 04/10 0820 74 128/64 04/10 0820 74 128/64 04/10 0820 74 128/64 04/10 0800 Nasal 2.0L Cannula 04/10 0614 98.3 66 18 100/50 95 04/10 0000 Nasal 2.0L Cannula 04/09 2257 98.9 69 18 122/68 93 Room Air 04/09 2041 110/707 04/09 2039 110/70 Intake & Output 04/10 1600 04/10 0800 04/10 0000 04/09 1600 04/09 0800 04/09 0000 Intake Total 480 120 120 640 Output Total 250 300 400 500 650 Balance 230 -180 -280 140 -650 Intake, Oral 480 120 120 640 Output, Urine 250 300 400 500 650 Patient 127 lb 126 lb Weight Weight Bed scale Bed scale Measurement Method Current Medications: Current Medications Sig/Damon Start time Last Medication Dose Route Stop Time Status Admin Acetaminophen 650 MG Q6P PRN 04/07 1800 AC PO Albuterol Sulfate 2 PUF Q4P PRN 04/07 2130 AC INH Albuterol Sulfate 2 PUF Q4-6 PRN PRN 04/07 1945 AC INH Aspirin Buffered 81 MG DAILY 04/08 900 AC 04/10 PO 0821 Atorvastatin Calcium 40 MG DAILY 04/08 900 AC 04/10 PO 0820 Bumetanide 2 MG DAILY 04/09 1614 AC 04/10 PO 0820 Carvedilol 25 MG BID 04/07 2100 AC 04/10 PO 0820 Clopidogrel Bisulfate 75 MG DAILY 04/08 900 AC 04/10 PO 0821 Docusate Sodium 100 MG DAILY 04/08 900 AC 04/10 PO 0820 Finasteride 5 MG DAILY 04/08 900 AC 04/10 PO 0821 Gabapentin 400 MG TID 04/07 2100 AC 04/10 PO 1356 Heparin Sodium 5,000 UNIT Q8 04/070 AC 04/10 (Porcine) SC 1356 Losartan Potassium 25 MG DAILY 04/08 0230 AC 04/10 PO 0820 Magnesium Oxide 400 MG BID 04/09 09 AC 04/10 PO 0820 Melatonin 6 MG QPM 04/07 2100 AC 04/09 PO 2040 Omeprazole 20 MG DAILY AC 04/08 07 AC 04/10 PO 0543 Ranolazine 1,000 MG BID 04/07 2100 AC 04/10 PO 0821 Spironolactone 25 MG DAILY 04/08 09 AC 04/10 PO 0820 Tamsulosin HCl 0.4 MG DAILY 04/08 900 AC 04/10 PO 0820 Tiotropium [place] 1 PUF DAILY 04/08 900 AC 04/10 INH 0824 Results Last 48 Hrs of Labs/Mics: Laboratory Tests 04/10/18 06: Anion Gap 10, Estimated GFR > 60, BUN/Creatinine Ratio 27.3 H, Magnesium 1.8 04/09/18 06: Anion Gap 11, Estimated GFR > 60, BUN/Creatinine Ratio 28.8 H, Magnesium 1.7 Assessment/Plan Assessment/Plan Assessment: 1. Acute on chronic HFrEF-clinically doing somewhat better. Symptomatically improved. Off supplemental oxygen. Diuresed 2500 cc since admission 2. Ischemic cardiomyopathy with ejection fraction 35-40% 3. History of coronary artery disease, status post bypass surgery 4. AICD 5. Microcytic anemia Recommendations: -Continue is presently - Continue telemetry? Yes
[2018-04-10 22:00] VITALS: BP 114/60
[2018-04-11 06:00] VITALS: BP 110/58
[2018-04-11 08:32] VITALS: BP 110/58
--- NOTE | 2018-04-11 09:44 | PN- Housestaff ---
See Addendum Subjective Follow-up For: CHF exacebation Tele-Events Since Last Visit: paced rhythm Subjective: seen and examined. stable to be dc home Review of Systems Constitutional: Reports: see HPI. Objective Last 24 Hrs of Vital Signs/I&O Vital Signs Date Time Temp Pulse Resp B/P B/P Pulse O2 O2 Flow FiO2 Mean Ox Delivery Rate 04/11 0832 60 110/58 04/11 0832 60 110/58 04/11 0832 60 110/58 04/11 0832 6 110/58 04/11 0600 98.1 60 20 110/58 93 04/10 2200 98.7 64 22 114/60 97 Nasal 2.0L Cannula 04/10 2133 64 114/60 04/10 2133 64 114/60 04/10 2105 94 Nasal 2.0L Cannula 04/10 1600 Nasal 2.0L Cannula 04/10 1400 98.3 62 20 98/60 94 Nasal Cannula 04/10 1034 86 Room Air 04/10 1000 94 Nasal 2.0L Cannula Intake & Output 04/11 1600 04/11 0800 04/11 0000 Intake Total 120 240 Output Total 600 Balance -480 240 Intake, IV 0 Intake, Oral 120 240 Number 0 0 Bowel Movements Output, Urine 600 Patient 129 lb Weight Physical Exam General Appearance: Alert, Oriented X3 Cardiovascular: Normal S1, Normal S2, crackels improved Current Medications: Current Medications Sig/Damon Start time Last Medication Dose Route Stop Time Status Admin Acetaminophen 650 MG Q6P PRN 04/07 1800 AC PO Albuterol Sulfate 2 PUF Q4P PRN 04/07 2130 AC INH Albuterol Sulfate 2 PUF Q4-6 PRN PRN 04/07 1945 AC INH Aspirin Buffered 81 MG DAILY 04/08 900 AC 04/11 PO 0832 Atorvastatin Calcium 40 MG DAILY 04/08 900 AC 04/11 PO 0831 Bumetanide 2 MG DAILY 04/09 1614 AC 04/11 PO 0831 Carvedilol 25 MG BID 04/07 2100 AC 04/11 PO 0832 Clopidogrel Bisulfate 75 MG DAILY 04/08 900 AC 04/11 PO 0832 Docusate Sodium 100 MG DAILY 04/08 900 AC 04/11 PO 0831 Finasteride 5 MG DAILY 04/08 900 AC 04/11 PO 0832 Gabapentin 400 MG TID 04/07 2100 AC 04/11 PO 0832 Heparin Sodium 5,000 UNIT Q8 04/07 2200 AC 04/11 (Porcine) SC 0535 Losartan Potassium 25 MG DAILY 04/08 0230 AC 04/11 PO 0832 Magnesium Oxide 400 MG BID 04/09 0900 AC 04/11 PO 0832 Melatonin 6 MG QPM 04/07 2100 AC 04/10 PO 2133 Omeprazole 20 MG DAILY AC 04/08 0700 AC 04/11 PO 0534 Ranolazine 1,000 MG BID 04/07 2100 AC 04/11 PO 0832 Spironolactone 25 MG DAILY 04/08 0900 AC 04/11 PO 0831 Tamsulosin HCl 0.4 MG DAILY 04/08 09 AC 04/11 PO 0832 Tiotropium [place] 1 PUF DAILY 04/08 09 AC 04/11 INH 0837 Last 24 Hrs of Lab/Evens Results Last 24 Hrs of Labs/Mics: Laboratory Tests 04/11/18 0610: Anion Gap 9, Estimated GFR > 60, BUN/Creatinine Ratio 35.6 H, Magnesium 2.0 Assessment/Plan Assessment: The patient is 78-year-old gentleman with past medical history HTN, CAD s/p CABG , ischemic cardiomyopathy with HFrEF, bilateral carotid endarterectomy, bladder cancer s/p intravesical treatment, recurrent UTI, T2DM, PAD s/p left femoral angioplasty c/b pseudoaneurysm with subsequent repair. He presented to [place] ED for evaluation of shortness of breath ongoing for 1 to 2 week. He was recently discharged from [facility] on 11/2017 after being treated for CHF. She is currently being treated and evaluated for following conditions #Acute decompensated systolic congestive heart failure Patient's presentation of symptoms along with elevated proBNP and chest x-ray findings are consistent with acute CHF exacerbation, reports improvement in respiratory symptoms. Currently in negative balance. Weight improved -Telemetry monitoring -Strick i/os negative balance -Daily weights 129 today -Patient started on oral diuretics Bumex 2 mg -We will continue to monitor electrolytes magnesium was around 2. He is on oral supplementation. -stable ro be discharged home #Acute hypoxic respiratory failure likely secondary to CHF exacerbation Patient is not on home oxygen. He was satting 88% on room air and is currently on 2 L maintaining oxygen saturation in 90s -Continue oxygen supplementation to maintain oxygen saturation above 92% -Taper oxygen as tolerated #CAD S/P Biventricular Pacemaker/AICD & CABG, Ischemic cardiomyopathy, LVEF 35- 40% (10/2017), Hypertension Continue aspirin, Plavix Ranexa Aldactone, losartan and carvedilol #Diabetes mellitus -We will hold metformin -Accu-Cheks and insulin sliding scale #Heart healthy diet/DVT prophylaxis witj Subcutaneous heparin/full code Problem List: 1. Acute CHF (congestive heart failure) Pain Ratin Pain Location: na Pain Goal: Pain 4 or less Pain Plan: prn Tomorrow's Labs & Rationales: none dc home
[2018-04-11] MEDS ORDERED: CARVEDILOL12.5 M1 PO (13:15)
--- NOTE | 2018-04-11 13:35 | PN- Cardiology ---
Subjective Subjective: Clinically improved. Pending discharge. Objective Vital Signs and I&Os Vital Signs Date Time Temp Pulse Resp B/P B/P Pulse O2 O2 Flow FiO2 Mean Ox Delivery Rate 04/11 0832 60 110/58 04/11 0832 60 110/58 04/11 0832 60 110/58 04/11 0832 6 110/58 04/11 0600 98.1 60 20 110/58 93 04/10 2200 98.7 64 22 114/60 97 Nasal 2.0L Cannula 04/10 213 64 114/60 04/10 2133 64 114/60 04/10 2105 94 Nasal 2.0L Cannula 04/10 1600 Nasal 2.0L Cannula 04/10 1400 98.3 62 20 98/60 94 Nasal Cannula Intake & Output 04/11 1600 04/11 0800 04/11 0000 04/10 1600 04/10 0800 04/10 0000 Intake Total 250 120 240 480 120 120 Output Total 525 600 250 300 400 Balance -275 -480 240 230 -180 -280 Intake, IV 0 Intake, Oral 250 120 240 480 120 120 Number 0 0 Bowel Movements Output, Urine 525 600 250 300 400 Patient 129 lb 127 lb Weight Weight Bed scale Measurement Method Physical Exam: General Appearance: well developed/nourished, thin elderly male, alert, awake, oriented Head: normal HEENT: Normal Neck: supple, JVP normal, carotid upstrokes normal bilaterally, no masses or thyromegaly Respiratory: chest non-tender, clear to auscultation and percussion bilaterally Cardiovascular: regular rate/rhythm, normal S1, S2, 1/6 systolic murmur Abdomen: normal bowel sounds, soft, non-tender Extremities: normal inspection, no edema Vascular: Pulses are 2+ and equal bilaterally Current Medications: Current Medications Sig/Damon Start time Last Medication Dose Route Stop Time Status Admin Acetaminophen 650 MG Q6P PRN 04/07 1800 AC PO Albuterol Sulfate 2 PUF Q4P PRN 04/07 2130 AC INH Albuterol Sulfate 2 PUF Q4-6 PRN PRN 04/07 194 AC INH Aspirin Buffered 81 MG DAILY 04/08 900 AC 04/11 PO 0832 Atorvastatin Calcium 40 MG DAILY 04/08 09 AC 04/11 PO 0831 Bumetanide 2 MG DAILY 04/09 1614 AC 04/11 PO 0831 Carvedilol 25 MG BID 04/07 2100 AC 04/11 PO 0832 Clopidogrel Bisulfate 75 MG DAILY 04/08 09 AC 04/11 PO 0832 Docusate Sodium 100 MG DAILY 04/08 09 AC 04/11 PO 0831 Finasteride 5 MG DAILY 04/08 09 AC 04/11 PO 0832 Gabapentin 400 MG TID 04/07 2100 AC 04/11 PO 1240 Heparin Sodium 5,000 UNIT Q8 04/07 2200 AC 04/11 (Porcine) [place] 0535 Losartan Potassium 25 MG DAILY 04/08 0230 AC 04/11 PO 0832 Magnesium Oxide 400 MG BID 04/09 09 AC 04/11 PO 0832 Melatonin 6 MG QPM 04/07 2100 AC 04/10 PO 2133 Omeprazole 20 MG DAILY AC 04/08 07 AC 04/11 PO 0534 Ranolazine 1,000 MG BID 04/07 2100 AC 04/11 PO 0832 Spironolactone 25 MG DAILY 04/08 900 AC 04/11 PO 0831 Tamsulosin HCl 0.4 MG DAILY 04/08 900 AC 04/11 PO 0832 Tiotropium [place] 1 PUF DAILY 04/08 09 AC 04/11 INH 0837 Results Last 48 Hrs of Labs/Mics: Laboratory Tests 04/11/18 0610: Anion Gap 9, Estimated GFR > 60, BUN/Creatinine Ratio 35.6 H, Magnesium 2.0 04/10/18 0620: Anion Gap 10, Estimated GFR > 60, BUN/Creatinine Ratio 27.3 H, Magnesium 1.8 Assessment/Plan Assessment/Plan Assessment: 1. Acute on chronic HFrEF-clinically doing somewhat better. Symptomatically improved. Off supplemental oxygen. Diuresed 2500 cc since admission 2. Ischemic cardiomyopathy with ejection fraction 35-40% 3. History of coronary artery disease, status post bypass surgery 4. AICD 5. Microcytic anemia Recommendations: -Continue is presently -The patient is currently pending discharge and will need close follow-up with Dr. Daniel as outpatient -Apparently the patient has been receiving carvedilol 25 mg twice daily while in the hospital. He has had borderline blood pressures. According to the family, his pressure was an issue at home and he was decreased to 6.25 mg twice daily by his primary packer dried beef. In view of these facts, I would suggest sending the patient home on 12.5 mg of carvedilol twice daily and this can be readjusted by his regular packer dried beef over the next few weeks. Continue telemetry? No
== END 2018-04-11 14:00 | disposition home health service (06) | DRG 292 ==
LOC: ERH 14:37 → 1NO 15:55 → ERHI 15:55 → ENRESERV 17:41 → ENTRNSPT 18:10 → EDTRNSPTSTS 18:17 → EDTRNSPT 18:17 → 1NO 18:25 → CMPTRNSPT 18:55 → 1NO 04-08 07:30 → ENPENDDIS 04-10 11:29 → ENTRNSPT 04-11 13:31 → 1NO 04-11 14:00 → EDTRNSPTSTS 04-11 14:26 → CMPTRNSPT 04-11 14:26
PROVIDERS: Internal Medicine Interventional Cardiology; Physician Assistant
DX: I11.0 Hypertensive heart disease with heart failure (principal); J96.11 Chronic respiratory failure with hypoxia; I50.23 Acute on chronic systolic (congestive) heart failure; E11.51 Type 2 diabetes mellitus with diabetic peripheral angiopathy without gangrene; Z99.81 Dependence on supplemental oxygen; J44.9 Chronic obstructive pulmonary disease, unspecified; I25.5 Ischemic cardiomyopathy; Z95.1 Presence of aortocoronary bypass graft; Z79.84 Long term (current) use of oral hypoglycemic drugs; E78.5 Hyperlipidemia, unspecified; Z85.828 Personal history of other malignant neoplasm of skin; I25.2 Old myocardial infarction; I25.10 Atherosclerotic heart disease of native coronary artery without angina pectoris; D50.9 Iron deficiency anemia, unspecified; Z85.51 Personal history of malignant neoplasm of bladder
CPT/HCPCS: 1NP; 36415; 36592; 71046; 82436; 93005; 93010; 96374; 97116-GO; 97161-GP; J1644; J1940; J3490

== ENCOUNTER 2018-04-12 07:59 | Emergency (ER) | payer OTHER, MEDICARE ==
[~2018-04-12 07:59] MED LIST changes: +CARVEDILOL12.5 M1 PO
--- NOTE | 2018-04-12 08:19 | ED DYSPNEA/ASTHMA COMPLAINT ---
History of Present Illness General Chief Complaint: Dyspnea (COPD, CHF, Other) Stated Complaint: OUT OF 02, SOB, DISCHARGED 04/11 Source: patient, old records Exam Limitations: no limitations Vital Signs & Intake/Output Vital Signs & Intake/Output Vital Signs Date Time Temp Pulse Resp B/P B/P Pulse O2 O2 Flow FiO2 Mean Ox Delivery Rate 04/12 1024 80 20 116/56 94 Nasal 3.0L Cannula 04/12 0813 68 30 135/60 91 Nasal 4.0L Cannula Allergies Coded Allergies: No Known Allergies (02/16/17) Reconcile Medications Acetaminophen (Tylenol Extra Strength) 500 MG TABLET 2 TAB PO PRN PAIN ( Reported) Albuterol Sulfate (Proair Hfa) 90 MCG HFA.AER.AD 2 PUF INH Q4-6 PRN PRN SOB ( Reported) Aspirin (Ecotrin*) 81 MG TABLET.DR 1 TAB PO DAILY HEART (Reported) Atorvastatin Calcium (Lipitor) 40 MG TABLET 1 TAB PO DAILY heart (Reported) Beta-Carotene (Beta Carotene) 10,000 UNIT CAPSULE 1 CAP PO DAILY SUPPLEMENT ( Reported) Bumetanide 2 MG TABLET 1 TAB PO DAILY DIURETIC (Reported) IF Weight greater than 135 lbs take whole tablet Otherwise 1/2 tablet Carvedilol 12.5 MG TABLET 1 TAB PO BID Heart Clopidogrel Bisulfate (Plavix) 75 MG TABLET 1 TAB PO DAILY BLOOD THINNER ( Reported) Finasteride 5 MG TABLET 1 TAB PO DAILY PROSTATE (Reported) Gabapentin 400 MG CAPSULE 1 CAP PO TID NEUROPATHY (Reported) Losartan Potassium (Cozaar) 25 MG TABLET 1 TAB PO DAILY HTN (Reported) Magnesium Oxide (Magnesium) 400 MG CAPSULE 1 CAP PO DAILY supplement Melatonin 3 MG TABLET 6 MG PO QPM SUPPLEMENT (Reported) Metformin HCl 500 MG TABLET 1 TAB PO BID DM (Reported) Multivit-Min/FA/Lycopen/Lutein (Centrum Silver Men Tablet) 300 MCG-600 MCG-300 MCG TABLET 1 TAB PO DAILY SUPPLEMENT (Reported) Omeprazole 20 MG TABLET.DR 1 TAB PO DAILY AC GI (Reported) Ranolazine (Ranexa) 500 MG TAB.ER.12H 2 TAB PO BID ANGINA/CHEST PAIN ( Reported) Spironolactone 25 MG TABLET 1 TAB PO DAILY DIURETIC (Reported) Tamsulosin HCl (Flomax) 0.4 MG CAP.ER.24H 1 CAP PO DAILY PROSTATE (Reported) Tiotropium [place] (Spiriva) 18 MCG CAP.W.DEV 1 PUF INH DAILY lung Ubidecarenone (Co Q-10) 200 MG CAPSULE 1 TAB PO DAILY SUPPLEMENT (Reported) Triage Note: PT TO ED C/O DIFFICULTY BREATHING X1 DAY. WAS DISCHARGED FROM THE HOSPITAL YESTERDAY WITH 2 TANKS OF OXYGEN FOR CONTINUOUS THERAPY. HAS A HX OF COPD. PT PRESENTS TO ROOM PALE, INITIAL RA SAT WAS 74%. PLACED ON 4L 02 VIA NC AND SATS INCREASED TO 91% AND PT REPORTED BREATHING GETTING BETTER. PT DENIES ANY CP. DR COLE IN ROOM TO [facility] AT THIS TIME. PTS SPOUSE STATES THAT THIS AM WHEN HIS SECOND TANK RAN OUT THEY CALLED [facility] AND WERE TOLD TO COME TO THE ER FOR OXYGEN AND THEN FOR US TO CALL THE FLOOR SO THEY CAN FACILITATE THE COMPANY COMING TO BRING HIM MORE OXYGEN. Triage Nurses Notes Reviewed? yes HPI: Patient presents for evaluation of worsening severe constant dyspnea overnight. Patient ran out of his oxygen yesterday and despite the use of his metered-dose inhalers has worsening shortness of breath. He denies fever or cold symptoms. He denies leg swelling. In addition to a history of COPD has a history of congestive heart failure. Nothing seems to make his dyspnea improved. Dyspnea worsens with exertion and lack of oxygen. Past History Travel History Traveled to [place] past 21 day No Medical History Any Pertinent Medical History? see below for history Neurological: NONE EENT: oral HSV Cardiovascular: CAD, CHF, hypertension, hyperlipidemia, PVD Respiratory: emphysema Gastrointestinal: NONE Hepatic: NONE Renal: NONE Musculoskeletal: ARTHRITIS Psychiatric: NONE Endocrine: diabetes Blood Disorders: NONE Cancer(s): bladder SKIN CANCER SKIDWAY MAN/Reproductive: NONE History of MRSA: No History of VRE: No History of CDIFF: No Surgical History Surgical History: CABG, Balloon Angio of LLE. Psychosocial History Who do you live with Spouse Services at Home None What is your primary language Maltese Tobacco Use: Never used Family History Family History, If Any: FATHER Myocardial infarction MOTHER Myocardial infarction Hx Contributory? No Review of Systems Review of Systems Constitutional: Reports: no symptoms. EENTM: Reports: no symptoms. Respiratory: Reports: see HPI. Cardiovascular: Reports: no symptoms. GI: Reports: no symptoms. Genitourinary: Reports: no symptoms. Musculoskeletal: Reports: no symptoms. Skin: Reports: no symptoms. Neurological/Psychological: Reports: no symptoms. Hematologic/Endocrine: Reports: no symptoms. Immunologic/Allergic: Reports: no symptoms. All Other Systems: Reviewed and Negative Physical Exam Physical Exam Respiratory: SEE BELOW Comments: Gen.: Well-nourished, well-developed, mild to moderate respiratory distress. Head: Normocephalic, atraumatic. Eyes: Normal inspection bilaterally Ears: Normal inspection bilaterally Nose: Normal inspection Throat/mouth : Moist mucosa Neck: Supple, full range of motion, no goiter Heart: Regular rate and rhythm, no murmurs rubs or gallops Lungs: Mild to moderate crackles bilaterally posterior bases with no wheezes or rhonchi Chest: Nontender Back: Normal range of motion Abdomen: Soft, nontender, nondistended, normal bowel sounds Extremities: Normal range of motion grossly, equal radial pulses, no cyanosis clubbing or edema Neurologic: Cranial nerves grossly intact, speech is clear Skin: warm and dry Psychiatric: Calm, cooperative, no apparent delusions or hallucinations Core Measures ACS in differential dx? No CVA/TIA Diagnosis No Sepsis Present: No Sepsis Focused Exam Completed? No Progress Differential Diagnosis: asthma, bronchitis, CHF, COPD, pneumonia, pneumothorax Plan of Care: Orders Procedure Date/time Status Telemetry/House Decorator 04/12 818 Active TROPONIN LEVEL 04/12 818 Complete MAGNESIUM 04/12 818 Complete CBC WITHOUT DIFFERENTIAL 04/12 818 Complete B-TYPE NATRIURETIC PEP (BNP) 04/12 0818 Complete BASIC METABOLIC PANEL 04/12 08 Complete EKG 04/12 0801 Active Laboratory Tests 04/12/18 0830: Anion Gap 12, Estimated GFR > 60, BUN/Creatinine Ratio 53.3 H, Glucose 173 H, Calcium 8.7, Magnesium 2.0, Troponin I < 0.01, [id number]-[id number] Pept 56575 H, CBC w Diff NO MAN DIFF REQ, RBC 3.63 L, MCV 75.9 L, MCH 24.6 L, MCHC 32.4 L, RDW 17.8 H, MPV 8.3, Gran % 86.7 H, Lymphocytes % 2.5 L, Monocytes % 10.5 H, Eosinophils % 0.2, Basophils % 0.1, Absolute Granulocytes 7.9 H, Absolute Lymphocytes 0.2 L, Absolute Monocytes 1.0 H, Absolute Eosinophils 0, Absolute Basophils 0 Diagnostic Imaging: Discussed w/RAD: Radiology Read. CXR Impression: PATIENT: BRENDEN BELL PRESENT AGE: 78 PATIENT ACCOUNT NO: [id number] : 38 LOCATION: [facility] ORDERING PHYSICIAN: Antwan Cole MD SERVICE DATE: 04/12/18 EXAM TYPE: RAD - XRY-PORTABLE CHEST XRAY EXAMINATION: XR PORTABLE CHEST CLINICAL INFORMATION: Dyspnea. Bibasilar rales. Presumptive diagnosis of CHF, infiltrate, effusion. COMPARISON: Several prior chest x-rays, most recent of which is dated 04/07/2018. TECHNIQUE: Portable AP semierect view of the chest was obtained. FINDINGS: The patient is status post median sternotomy and CABG surgery. Cardiomediastinal silhouette is enlarged, unchanged. Calcification of the aortic arch is seen. Right atrial and right coronary sinus pacer leads and right ventricular AICD lead are unchanged in position. Left pectoral generator box partially obscures the underlying lung. There are persistent moderate-sized bilateral pleural effusions with associated bibasilar opacities, unchanged from prior study, and corresponding to the dense consolidation with air bronchograms seen in the right lower lobe and peripheral atelectatic changes in the left lower lobe and rounded atelectatic changes in the right middle lobe seen on CT scan. There is central vascular congestion without overt pulmonary edema. Underlying pulmonary emphysema is noted. Bony structures are unremarkable. IMPRESSION: 1. No interval change in moderate size bilateral pleural effusions and bibasilar atelectasis. Suspect superimposed right lower lobe pneumonia as well. Clinical correlation requested. 2. Central vascular congestion without overt pulmonary edema. 3. Obstructive lung disease. DICTATED BY: Lily Michel MD DATE/TIME DICTATED:04/12/18833 SUPERVISOR CD AREA:[facility] DATE/TIME TRANSCRIBED:04/12/18833 CONFIDENTIAL, DO NOT COPY WITHOUT APPROPRIATE AUTHORIZATION. <Electronically signed in Other Vendor System> SIGNED BY: Lily Michel MD 04/12/1843 Initial ED EKG: av PACED RHYTHM WITH A RATE OF 68 AND LEFT BUNDLE BRANCH PATTERN , UNCHANGED COMPARED WITH PRIOR. Comments: 04/12/2018 10:27:50 AM I have updated Brenden on test results. He feels well and offers no complaints currently. In fact he states he feels "much better". On 4 L nasal cannula, oxygen saturation 100%. I've weaned this to 3 L. Patient is just beginning to diuresis. I mentioned the anemia to Brenden and he denies bleeding but states he does pass dark stool from time to time. Rectal examination revealed a nontender exam with no palpable masses and heme negative brown stool. I will observe in the emergency department and reevaluate shortly with ambulatory pulse ox. Feel patient may be stable for discharge. 04/12/2018 11:31:53 AM Brenden ambulated in the emergency department with an oxygen saturation down to 90%. Patient however states that he did not feel short of breath. He does have home oxygen therapy available. I feel he is stable for outpatient management with an increased dose of his Bumex and follow- up on Saturday. Departure Departure Disposition: HOME OR SELF CARE Condition: Stable Clinical Impression Primary Impression: CHF (congestive heart failure) Qualifiers: Heart failure type: unspecified Heart failure chronicity: acute on chronic Qualified Code: I50.9 - Heart failure, unspecified Referrals: Juan Carlos Marie MD (PCP/Family) Additional Instructions: Low-salt diet. Take an extra dose of Bumex tomorrow to enhance your diuresis. Rest. Follow-up with your primary care physician or embedded engineer on Saturday for reevaluation of your CHF and to recheck your potassium level (your level was mildly elevated in the emergency department). Return if any concerns or sudden worsening. Please note that there might be incidental findings in your evaluation that are unrelated to the current emergency department visit. Please notify your primary care doctor about this emergency department visit in order to obtain and review all of the testing performed so that these incidental findings can be monitored as needed. If you had an x-ray performed, please understand that some fractures or other findings may not be seen on the initial set of x-rays. If your symptoms persist you might need a repeat set of x-rays to check for such a fracture. If you had a laceration evaluated, please understand that foreign bodies such as glass or wood may not be visible to the naked eye or on plain x-rays. If the wound becomes red, swollen, increasingly more painful or if there is any drainage from the wound, please have it reevaluated by a physician for the possibility of a retained foreign body. If you're unable to follow up as outlined in the discharge instructions please return to the emergency department. Thank you for choosing the [facility] Emergency Department for your care. It was a pleasure to serve you today. Antwan Cole M.D. [facility] Departure Forms: Customer Survey General Discharge Information Critical Care Note Critical Care Note Critical Care Time: non-applicable
--- NOTE | 2018-04-12 08:43 | RADIOLOGY REPORT ---
EXAMINATION: XR PORTABLE CHEST CLINICAL INFORMATION: Dyspnea. Bibasilar rales. Presumptive diagnosis of CHF, infiltrate, effusion. COMPARISON: Several prior chest x-rays, most recent of which is dated 04/07/2018. TECHNIQUE: Portable AP semierect view of the chest was obtained. FINDINGS: The patient is status post median sternotomy and CABG surgery. Cardiomediastinal silhouette is enlarged, unchanged. Calcification of the aortic arch is seen. Right atrial and right coronary sinus pacer leads and right ventricular AICD lead are unchanged in position. Left pectoral generator box partially obscures the underlying lung. There are persistent moderate-sized bilateral pleural effusions with associated bibasilar opacities, unchanged from prior study, and corresponding to the dense consolidation with air bronchograms seen in the right lower lobe and peripheral atelectatic changes in the left lower lobe and rounded atelectatic changes in the right middle lobe seen on CT scan. There is central vascular congestion without overt pulmonary edema. Underlying pulmonary emphysema is noted. Bony structures are unremarkable. IMPRESSION: 1. No interval change in moderate size bilateral pleural effusions and bibasilar atelectasis. Suspect superimposed right lower lobe pneumonia as well. Clinical correlation requested. 2. Central vascular congestion without overt pulmonary edema. 3. Obstructive lung disease.
[2018-04-12 08:51] LABS: ABSOLUTE BASOPHIL COUNT 0 /CUMM (0.0-0.2); ABSOLUTE EOSINOPHIL COUNT 0 /CUMM (0.0-0.7); ABSOLUTE GRANULOCYTE CT 7.9 /CUMM (1.4-6.5); ABSOLUTE LYMPH COUNT 0.2 /CUMM (1.2-3.4); BASOPHIL % 0.1 % (0.0-2.0); EOSINOPHIL % 0.2 % (0-5); HEMATOCRIT 27.6 % (42-52); MEAN CORPUSCULAR HGB 24.6 PG (27.0-31.0); MEAN CORPUSCULAR HGB CONC 32.4 G/DL (33.0-37.0); MEAN CORPUSCULAR VOLUME 75.9 FL (80.0-94.0); MEAN PLATELET VOLUME 8.3 FL (7.4-10.4); PLATELET COUNT 282 /CUMM (130-400); RBC DISTRIBUTION WIDTH 17.8 % (11.5-14.5); RED BLOOD CELL CT 3.63 /CUMM (4.70-6.10); WHITE BLOOD CELL COUNT 9.1 /CUMM (4.8-10.8)
[2018-04-12 09:17] LABS: GRANULOCYTE % 86.7 % (42.2-75.2)
[2018-04-12 12:04] VITALS: BP 122/78
== END 2018-04-12 12:06 ==
LOC: ERH 07:59
PROVIDERS: Emergency Medicine
DX: I50.9 Heart failure, unspecified (principal)
CPT/HCPCS: 71045; 93005; 93010; 96374; J1940

== ENCOUNTER 2018-05-01 18:42 | Inpatient (IN) | payer OTHER, MEDICARE ==
[~2018-05-01] VITALS: Ht 175.3 cm; Wt 59.7 kg
--- NOTE | 2018-05-01 19:04 | ED DYSPNEA/ASTHMA COMPLAINT ---
History of Present Illness General Chief Complaint: General Adult Stated Complaint: OXYGEN LEVEL LOW,CONFUSION,?FLUID IN LUNGS Source: patient Exam Limitations: no limitations Vital Signs & Intake/Output Vital Signs & Intake/Output Vital Signs Date Time Temp Pulse Resp B/P B/P Pulse O2 O2 Flow FiO2 Mean Ox Delivery Rate 05/02 0211 Nasal 2.0L Cannula 05/02 0202 98.0 63 18 124/59 96 Room Air 05/01 2316 98.3 66 20 127/58 96 Nasal 2.0L Cannula 05/01 2143 98 Nasal 2.0L Cannula 05/01 214 98.6 60 20 122/58 99 Nasal 2.0L Cannula 05/01 1906 98.2 63 22 116/56 99 Nasal 2.0L Cannula ED Intake and Output 05/02 0000 05/01 1200 Intake Total 500 Output Total Balance 500 Intake, IV 500 Patient 127 lb Weight Weight Estimated Measurement Method Allergies Coded Allergies: No Known Allergies (02/16/17) Reconcile Medications Acetaminophen (Tylenol Extra Strength) 500 MG TABLET 2 TAB PO PRN PAIN ( Reported) Albuterol Sulfate (Proair Hfa) 90 MCG HFA.AER.AD 2 PUF INH Q4-6 PRN PRN SOB ( Reported) Aspirin (Ecotrin*) 81 MG TABLET.DR 1 TAB PO DAILY HEART (Reported) Atorvastatin Calcium (Lipitor) 40 MG TABLET 1 TAB PO DAILY heart (Reported) Beta-Carotene (Beta Carotene) 10,000 UNIT CAPSULE 1 CAP PO DAILY SUPPLEMENT ( Reported) Bumetanide 2 MG TABLET 0.5-1 TAB PO DAILY DIURETIC (Reported) IF Weight greater than 135 lbs take whole tablet Otherwise 1/2 tablet Carvedilol 25 MG TABLET 1 TAB PO BID HEART/BP (Reported) Clopidogrel Bisulfate (Plavix) 75 MG TABLET 1 TAB PO DAILY BLOOD THINNER ( Reported) Finasteride 5 MG TABLET 1 TAB PO DAILY PROSTATE (Reported) Gabapentin 400 MG CAPSULE 1 CAP PO TID NEUROPATHY (Reported) Losartan Potassium (Cozaar) 25 MG TABLET 1 TAB PO DAILY HTN (Reported) Magnesium Oxide (Magnesium) 400 MG CAPSULE 1 CAP PO DAILY supplement Melatonin 3 MG TABLET 6 MG PO QPM SUPPLEMENT (Reported) Metformin HCl 500 MG TABLET 1 TAB PO BID DM (Reported) Multivit-Min/FA/Lycopen/Lutein (Centrum Silver Men Tablet) 300 MCG-600 MCG-300 MCG TABLET 1 TAB PO DAILY SUPPLEMENT (Reported) Omeprazole 20 MG TABLET.DR 1 TAB PO DAILY AC GI (Reported) Ranolazine (Ranexa) 500 MG TAB.ER.12H 2 TAB PO BID ANGINA/CHEST PAIN ( Reported) Spironolactone 25 MG TABLET 1 TAB PO DAILY DIURETIC (Reported) Tamsulosin HCl (Flomax) 0.4 MG CAP.ER.24H 1 CAP PO DAILY PROSTATE (Reported) Tiotropium Perry (Spiriva) 18 MCG CAP.W.DEV 1 PUF INH DAILY lung Ubidecarenone (Co Q-10) 200 MG CAPSULE 1 TAB PO DAILY SUPPLEMENT (Reported) Triage Nurses Notes Reviewed? yes Onset: Gradual Duration: day(s): Timing: recent history Severity: moderate Activities at Onset: none Prior Episodes/Possible Cause: occasional episodes Modifying Factors: Improves With: rest, other (02). Associated Symptoms: weakness HPI: 78 YO gentleman h/o chf, on home 02 presents with 1 week of progressive fatigue and weakness, decreased oral intake. On his baseline 2 Liters at home, his 02 sat "has not gotten above 93-4% per family." He has no fever, chills, chest pain, dysuria, diarhea, abdominal pain. He is otherwise well. Past History Travel History Traveled to [place] past 21 day No Medical History Any Pertinent Medical History? 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 Psychosocial History Who do you live with Spouse Services at Home None What is your primary language Vietnamese Family History Family History, If Any: FATHER Myocardial infarction MOTHER Myocardial infarction Hx Contributory? No Review of Systems Review of Systems Constitutional: Reports: no symptoms. EENTM: Reports: no symptoms. Respiratory: Reports: no symptoms. Cardiovascular: Reports: no symptoms. GI: Reports: no symptoms. Genitourinary: Reports: no symptoms. Musculoskeletal: Reports: no symptoms. Skin: Reports: no symptoms. Neurological/Psychological: Reports: no symptoms. Hematologic/Endocrine: Reports: no symptoms. Immunologic/Allergic: Reports: no symptoms. All Other Systems: Reviewed and Negative Physical Exam Physical Exam General Appearance: well developed/nourished, lethargic, mild distress Head: atraumatic, normal appearance Eyes: Bilateral: normal appearance. Ears, Nose, Throat: normal pharynx, normal ENT inspection, dry mucosa Neck: normal inspection, supple, full range of motion Respiratory: decreased breath sounds Cardiovascular: regular rate/rhythm Gastrointestinal: normal bowel sounds, soft, non-tender, no organomegaly Extremities: normal inspection, normal capillary refill, normal range of motion, no edema Neurologic/Psych: awake Skin: intact, normal color, pallor Core Measures ACS in differential dx? No CVA/TIA Diagnosis No Sepsis Present: No Sepsis Focused Exam Completed? No Progress Differential Diagnosis: AMI, CHF, COPD, pneumonia Plan of Care: Orders Procedure Date/time Status BASIC ELECTROLYTES PLUS BUN&CR 05/03 600 Active CHF Diet 05/02 B Active TROPONIN LEVEL 05/02 1000 Active EKG 05/02 1000 Active CBC WITHOUT DIFFERENTIAL 05/02 06 Active BASIC METABOLIC PANEL 05/02 06 Active TROPONIN LEVEL 05/02 0300 Complete EKG 05/02 0300 Active Skin/Pressure Ulcer Assess (Sk 05/02 0223 Active Pathway - chart 05/02 0203 Active House Staff 05/02 0203 Active Vital Signs 05/02 0202 Complete Teach/Educate 05/02 0202 Complete Pain Treatment and Response 05/02 0202 Complete Nutritional Intake, Monitor 05/02 0202 Complete Intake & Output 05/02 0202 Complete Patient Care Conference 05/02 0202 Complete Weight 05/02 0158 Active Teach/Educate 05/02 0158 Active Pain Treatment and Response 05/02 0158 Active Nutritional Intake, Monitor 05/02 0158 Active Isolation 05/02 0158 Active Patient Care Conference 05/02 0158 Active Activity/Ambulation 05/02 0158 Active CHF Core Measures 05/02 UNK Active Weight 05/02 UNK Complete VTE Mechanical Prophylaxis 05/02 UNK Active Vital Signs 05/02 UNK Complete Intake & Output 05/02 UNK Complete FingerStick- Glucose 05/02 UNK Active Activity/Ambulation 05/02 UNK Complete Patient Data 05/[address] in observation 05/01 2332 Active Saline Lock 05/01 2331 Active Misc Message 05/01 2331 Active ED Holding Orders 05/01 2331 Active Vital Signs 05/01 233 Active Code Status 05/01 2331 Active Intake & Output 05/01 2146 Active URINALYSIS 05/01 2137 Active D-DIMER 05/01 190 Complete Telemetry/Laser Engraver 05/01 1857 Active TROPONIN LEVEL 05/01 1857 Complete MAGNESIUM 05/01 1857 Complete CBC WITHOUT DIFFERENTIAL 05/01 1857 Complete B-TYPE NATRIURETIC PEP (BNP) 05/01 1857 Complete BASIC METABOLIC PANEL 05/01 1857 Complete EKG 05/01 1857 Active Current Medications Sig/Damon Start time Last Medication Dose Stop Time Status Admin Atorvastatin Calcium 40 MG 1700 05/02 1700 AC (Lipitor) Aspirin Buffered 81 MG DAILY 05/02 900 AC (Ecotrin) Carvedilol 25 MG BID 05/02 900 AC (Coreg) Clopidogrel Bisulfate 75 MG DAILY 05/02 900 AC (Plavix) Finasteride 5 MG DAILY 05/02 900 AC (Proscar) Gabapentin 400 MG TID 05/02 900 AC (Neurontin) Losartan Potassium 25 MG DAILY 05/02 900 AC (Cozaar) Ranolazine 1,000 MG BID 05/02 900 AC (Ranexa) Spironolactone 25 MG DAILY 05/02 900 AC (Aldactone) Tamsulosin HCl 0.4 MG DAILY 05/02 900 AC (Flomax) Tiotropium Perry 1 PUF DAILY 05/02 900 AC (Spiriva) Insulin Aspart 0 TIDAC 05/02 800 AC (NovoLOG) Omeprazole 40 MG DAILY AC 05/02 700 AC (Prilosec) Heparin Sodium 5,000 UNIT Q8 05/02 600 AC (Porcine) Albuterol Sulfate 2 PUF Q4-6 PRN PRN 05/02 0215 AC (Ventolin) Laboratory Tests 05/02/18 0243: Troponin I < 0.01 05/01/181951: Anion Gap 12, Estimated GFR > 60, BUN/Creatinine Ratio 35.7 H, Glucose 126 H, Calcium 8.7, Magnesium 1.9, Troponin I < 0.01, Fiy-C-Iazxhmesekf Pept 7780 H, D -Dimer High Sensitivty 1775 H, CBC w Diff NO MAN DIFF REQ, RBC 3.76 L, MCV 74.2 L, MCH 23.7 L, MCHC 31.9 L, RDW 18.8 H, MPV 8.2, Gran % 84.9 H, Lymphocytes % 5.5 L, Monocytes % 8.4, Eosinophils % 1.0, Basophils % 0.2, Absolute Granulocytes 7.2 H, Absolute Lymphocytes 0.5 L, Absolute Monocytes 0.7 H, Absolute Eosinophils 0.1, Absolute Basophils 0 Diagnostic Imaging: Viewed by Me: Radiology Read. Discussed w/RAD: Radiology Read. CXR Impression: PATIENT: CAITY BELL PRESENT AGE: 78 PATIENT ACCOUNT NO: [id number] : 38 LOCATION: [facility] ORDERING PHYSICIAN: Antwan Cole MD SERVICE DATE: 05/01/18 EXAM TYPE: RAD - XRY-PORTABLE CHEST XRAY EXAMINATION: XR PORTABLE CHEST CLINICAL INFORMATION: Shortness of breath COMPARISON: 04/12/2018 TECHNIQUE: Portable frontal view of the chest was obtained. FINDINGS: Dual chamber pacemaker device grossly intact. Persistent changes of pulmonary edema with slightly increasing bilateral partially loculated subpulmonic pleural effusions. No major zones of airspace disease visible. No other change. IMPRESSION: Slightly increasing bilateral pleural effusions. Persistent pulmonary edema. DICTATED BY: Jasen Mauro MD DATE/TIME DICTATED:05/01/181939 LEAF CONDITIONER HELPER:VANESSA DATE/TIME TRANSCRIBED:1939 CONFIDENTIAL, DO NOT COPY WITHOUT APPROPRIATE AUTHORIZATION. < Electronically signed in Other Vendor System> SIGNED BY: Jasen Mauro MD 03/14, PATIENT: CAITY BELL PRESENT AGE: 78 PATIENT ACCOUNT NO: [id number] : 38 LOCATION: [facility] ORDERING PHYSICIAN: Cl Felipe MD SERVICE DATE: 05/01/18 EXAM TYPE: CAT - CTA CHEST-PULMONARY EMBOLISM EXAMINATION: CT ANGIOGRAM OF THE CHEST WITH AND WITHOUT CONTRAST (CT PULMONARY ANGIOGRAM FOR PE) CLINICAL INFORMATION: Reason for Study:
Presumptive Dx: dyspnea, hypoxia,
Signs Symptoms: room 10
COMPARISON: 01/10/2018 TECHNIQUE: Prior to contrast administration, noncontrast localization images were obtained. Subsequently, multidetector volumetric imaging was performed from the thoracic inlet to below the diaphragms following the administration of 80 mL Omnipaque 350 intravenous contrast. No contrast reaction reported. Sagittal, coronal, and MIP oblique sagittal reformatted images were obtained on the CT workstation, uploaded to PACS, and reviewed. Total exam dose-length product 3:15 mGy-cm. FINDINGS: QUALITY OF STUDY/CONTRAST BOLUS: Satisfactory PULMONARY ARTERIES: No central or segmental pulmonary emboli. Pulmonary arteries are moderately prominent consistent with pulmonary hypertension. THORACIC AORTA: No aneurysm or dissection. Severe atherosclerotic changes including coronary vessels. LUNG: Severe advanced emphysema with extensive compressive atelectasis both lower lobes with high density material presumably aspirated barium. Round atelectasis pattern. Appearance is similar to baseline. PLEURA: Right greater than left moderate pleural effusions persist. MEDIASTINUM: Reactive appearing lymphadenopathy slightly progressive since baseline. Largest no precarinal location measures up to approximately 16 mm short axis. There is mild flattening of the interventricular septum suggesting increased right heart pressures. Pacer device again noted. CHEST WALL/AXILLA: No axillary or internal mammary lymphadenopathy. OSSEOUS STRUCTURES: No acute or suspicious osseous abnormality. UPPER ABDOMEN: Unremarkable. No reflux of contrast into the hepatic veins to suggest elevated right heart pressures. IMPRESSION: 1. No evidence for acute or chronic pulmonary embolism. 2. There is a pulmonary hypertension. 3. Parenchymal disease at both bases appears similar favoring chronic rounded atelectasis. 4. Increasing nonspecific mildly enlarged mediastinal lymph nodes. 4. Pleural effusions similar. VTE: negative DICTATED BY : Jasen Mauro MD DATE/TIME DICTATED:05/01/182209 LEAF CONDITIONER HELPER:VANESSA DATE/TIME TRANSCRIBED:05/01/182209 CONFIDENTIAL, DO NOT COPY WITHOUT APPROPRIATE AUTHORIZATION. <Electronically signed in Other Vendor System> SIGNED BY: Jasen Mauro MD 05/01/182228 Initial ED EKG: DUAL PACED Departure Departure Disposition: STILL A PATIENT Condition: Stable Clinical Impression Primary Impression: Dehydration Secondary Impressions: Change in mental status, Pleural effusion, Weakness Referrals: Juan Carlos Marie MD (PCP/Family) Departure Forms: Customer Survey General Discharge Information Observation Note Spoke With: Patricia Cedeno MD Place Patient In: Non-ED OBS Care Area Rationale for Observation: My rational for observation is as follows . pt with weakness, unable to ambulate, clinically dhydration, but still with pleural effusions... I doubt acute pulmonary edema. Given the complexity of his presenation (clincally dehydrated, but with suggestion of pulmonary edema (chronic?)), pt merits inpt obs for close evaluation, serial trops.... consider pulm consult for eval of pleural effusions. Critical Care Note Critical Care Note Critical Care Time: non-applicable
--- NOTE | 2018-05-01 19:53 | RADIOLOGY REPORT ---
EXAMINATION: XR PORTABLE CHEST CLINICAL INFORMATION: Shortness of breath COMPARISON: 04/12/2018 TECHNIQUE: Portable frontal view of the chest was obtained. FINDINGS: Dual chamber pacemaker device grossly intact. Persistent changes of pulmonary edema with slightly increasing bilateral partially loculated subpulmonic pleural effusions. No major zones of airspace disease visible. No other change. IMPRESSION: Slightly increasing bilateral pleural effusions. Persistent pulmonary edema.
[2018-05-01 20:03] LABS: ABSOLUTE BASOPHIL COUNT 0 /CUMM (0.0-0.2); ABSOLUTE EOSINOPHIL COUNT 0.1 /CUMM (0.0-0.7); ABSOLUTE GRANULOCYTE CT 7.2 /CUMM (1.4-6.5); ABSOLUTE LYMPH COUNT 0.5 /CUMM (1.2-3.4); ABSOLUTE MONOCYTE COUNT 0.7 /CUMM (0.10-0.60); BASOPHIL % 0.2 % (0.0-2.0); HEMATOCRIT 27.9 % (42-52); MEAN CORPUSCULAR HGB 23.7 PG (27.0-31.0); MEAN CORPUSCULAR HGB CONC 31.9 G/DL (33.0-37.0); MEAN CORPUSCULAR VOLUME 74.2 FL (80.0-94.0); MEAN PLATELET VOLUME 8.2 FL (7.4-10.4); PLATELET COUNT 339 /CUMM (130-400); RBC DISTRIBUTION WIDTH 18.8 % (11.5-14.5); RED BLOOD CELL CT 3.76 /CUMM (4.70-6.10); WHITE BLOOD CELL COUNT 8.5 /CUMM (4.8-10.8)
[2018-05-01] MEDS ORDERED: CARVEDILOL25 M1 PO (20:18)
[2018-05-01 20:33] LABS: GRANULOCYTE % 84.9 % (42.2-75.2)
--- NOTE | 2018-05-01 22:29 | CT SCAN REPORT ---
EXAMINATION: CT ANGIOGRAM OF THE CHEST WITH AND WITHOUT CONTRAST (CT PULMONARY ANGIOGRAM FOR PE) CLINICAL INFORMATION: Reason for Study:
Presumptive Dx: dyspnea, hypoxia,
Signs Symptoms: room 10
COMPARISON: 01/10/2018 TECHNIQUE: Prior to contrast administration, noncontrast localization images were obtained. Subsequently, multidetector volumetric imaging was performed from the thoracic inlet to below the diaphragms following the administration of 80 mL Omnipaque 350 intravenous contrast. No contrast reaction reported. Sagittal, coronal, and MIP oblique sagittal reformatted images were obtained on the CT workstation, uploaded to PACS, and reviewed. Total exam dose-length product 3:15 mGy-cm. FINDINGS: QUALITY OF STUDY/CONTRAST BOLUS: Satisfactory PULMONARY ARTERIES: No central or segmental pulmonary emboli. Pulmonary arteries are moderately prominent consistent with pulmonary hypertension. THORACIC AORTA: No aneurysm or dissection. Severe atherosclerotic changes including coronary vessels. LUNG: Severe advanced emphysema with extensive compressive atelectasis both lower lobes with high density material presumably aspirated barium. Round atelectasis pattern. Appearance is similar to baseline. PLEURA: Right greater than left moderate pleural effusions persist. MEDIASTINUM: Reactive appearing lymphadenopathy slightly progressive since baseline. Largest no precarinal location measures up to approximately 16 mm short axis. There is mild flattening of the interventricular septum suggesting increased right heart pressures. Pacer device again noted. CHEST WALL/AXILLA: No axillary or internal mammary lymphadenopathy. OSSEOUS STRUCTURES: No acute or suspicious osseous abnormality. UPPER ABDOMEN: Unremarkable. No reflux of contrast into the hepatic veins to suggest elevated right heart pressures. IMPRESSION: 1. No evidence for acute or chronic pulmonary embolism. 2. There is a pulmonary hypertension. 3. Parenchymal disease at both bases appears similar favoring chronic rounded atelectasis. 4. Increasing nonspecific mildly enlarged mediastinal lymph nodes. 4. Pleural effusions similar. VTE: negative
--- NOTE | 2018-05-02 00:41 | History & Physical ---
MikeMichael 05/02/18 0040: General Information and HPI History of Present Illness: Brenden Mejia is a 78 YO male with PMHx. of HTN, CAD, s/p CABG, ischemic cardiomyopathy with HFrEF, bilateral carotid endarterectomy, bladder cancer s/p intravesical treatment, recurrent UTI, T2DM, and PAD s/p left femoral angioplasty who presents to the ED with complaints of "weakness." Patient states he was in the hospital last month due to difficulty breathing. Patient states he has been feeling lethargic and weak recently and noticably more thirsty as well. Patient also notes to be short of breath on occasion. Patient states he has not changed his diet recently and limits his salt intake. Patient denies symptoms of lightheadedness, dizziness, fever, cough, dypnea on exertion, orthopnea, headache, abdominal pain, palpitations, and chest pain. Patient states he uses a cane for mobility assistance. Patient states he is retired and lives with his and son. Patient states he is a former smoker after smoking for 40 years at 1 pack per day. Patient states he was encouraged to quit after having coronary artery bypass surgery. Patient states he occasionally drinks alcohol. Patient states he follows up with his Hand Sole Sewer Dr. Jones and his Trade Show Coordinator Dr. Pretty. Allergies/Medications Allergies: Coded Allergies: No Known Allergies (02/16/17) Home Med list Acetaminophen (Tylenol Extra Strength) 500 MG TABLET 2 TAB PO PRN PAIN ( Reported) Albuterol Sulfate (Proair Hfa) 90 MCG HFA.AER.AD 2 PUF INH Q4-6 PRN PRN SOB ( Reported) Aspirin (Ecotrin*) 81 MG TABLET.DR 1 TAB PO DAILY HEART (Reported) Atorvastatin Calcium (Lipitor) 40 MG TABLET 1 TAB PO DAILY heart (Reported) Beta-Carotene (Beta Carotene) 10,000 UNIT CAPSULE 1 CAP PO DAILY SUPPLEMENT ( Reported) Bumetanide 2 MG TABLET 0.5-1 TAB PO DAILY DIURETIC (Reported) IF Weight greater than 135 lbs take whole tablet Otherwise 1/2 tablet Carvedilol 25 MG TABLET 1 TAB PO BID HEART/BP (Reported) Clopidogrel Bisulfate (Plavix) 75 MG TABLET 1 TAB PO DAILY BLOOD THINNER ( Reported) Finasteride 5 MG TABLET 1 TAB PO DAILY PROSTATE (Reported) Gabapentin 400 MG CAPSULE 1 CAP PO TID NEUROPATHY (Reported) Losartan Potassium (Cozaar) 25 MG TABLET 1 TAB PO DAILY HTN (Reported) Magnesium Oxide (Magnesium) 400 MG CAPSULE 1 CAP PO DAILY supplement Melatonin 3 MG TABLET 6 MG PO QPM SUPPLEMENT (Reported) Metformin HCl 500 MG TABLET 1 TAB PO BID DM (Reported) Multivit-Min/FA/Lycopen/Lutein (Centrum Silver Men Tablet) 300 MCG-600 MCG-300 MCG TABLET 1 TAB PO DAILY SUPPLEMENT (Reported) Omeprazole 20 MG TABLET.DR 1 TAB PO DAILY AC GI (Reported) Ranolazine (Ranexa) 500 MG TAB.ER.12H 2 TAB PO BID ANGINA/CHEST PAIN ( Reported) Spironolactone 25 MG TABLET 1 TAB PO DAILY DIURETIC (Reported) Tamsulosin HCl (Flomax) 0.4 MG CAP.ER.24H 1 CAP PO DAILY PROSTATE (Reported) Tiotropium [place] (Spiriva) 18 MCG CAP.W.DEV 1 PUF INH DAILY lung Ubidecarenone (Co Q-10) 200 MG CAPSULE 1 TAB PO DAILY SUPPLEMENT (Reported) Past History Travel History Traveled to [place] past 21 day No Medical History Neurological: NONE EENT: oral HSV Cardiovascular: CAD, CHF, hypertension, hyperlipidemia, PVD Respiratory: emphysema Gastrointestinal: NONE Hepatic: NONE Renal: NONE Musculoskeletal: ARTHRITIS Psychiatric: NONE Endocrine: diabetes Blood Disorders: NONE Cancer(s): bladder 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 Past Family/Social History Family History Relations & Conditions if any FATHER Myocardial infarction MOTHER Myocardial infarction Psychosocial History Who Do You Live With? spouse Services at Home: None Primary Language: Macanese Functional Ability ADLs Independent: dressing, eating, toileting, bathing. Ambulation: cane IADLs Independent: shopping, housework, finances, food prep, telephone, transportation , medication admin. Review of Systems Review of Systems Constitutional: Reports: malaise (lethargy), weakness. Denies: chills, diaphoresis, fever. EENTM: Denies: visual changes. Cardiovascular: Denies: chest pain, edema, orthopena, palpitations, peripheral edema. Respiratory: Reports: short of breath. Denies: cough, orthopnea. GI: Denies: abdominal pain. Genitourinary: Denies: dysuria. Musculoskeletal: Denies: joint pain. Skin: Denies: no symptoms. Neurological/Psychological: Denies: headache, numbness, tingling. Exam & Diagnostic Data Last 24 Hrs of Vital Signs/I&O Vital Signs Date Time Temp Pulse Resp B/P B/P Pulse O2 O2 Flow FiO2 Mean Ox Delivery Rate 05/02 0211 Nasal 2.0L Cannula 05/02 0202 98.0 63 18 124/59 96 Room Air 05/01 2316 98.3 66 20 127/58 96 Nasal 2.0L Cannula 05/01 2143 98 Nasal 2.0L Cannula 05/01 214 98.6 60 20 122/58 99 Nasal 2.0L Cannula 05/01 1906 98.2 63 22 116/56 99 Nasal 2.0L Cannula Intake & Output 05/02 0800 05/02 0000 05/01 1600 Intake Total 500 Output Total Balance 500 Intake, IV 500 Patient 135 lb 127 lb Weight Weight Estimated Measurement Method Physical Exam General Appearance Alert, Oriented X3, Cooperative, No Acute Distress Skin No Rashes, No Breakdown HEENT Atraumatic, PERRLA Neck Supple, No JVD Cardiovascular Normal S1, Normal S2 Lungs Crackles in the lower lung rao Abdomen Soft, No Tenderness Neurological Strength at 5/5 X4 Ext, Normal Tone Extremities Normal Pulses Assessment/Plan Assessment: Problem List * Cardiogenic Pulmonary Edema * Pleural Effusions, b/l * h/o HTN/CAD * h/o Type 2 DM * h/o Peripheral artery disease * h/o Bladder Cancer - Admit to telemetry for cardiac monitoring and assessment of vital signs - Serial Troponin and EKG assessments - Cardiogenic Pulmonary Edema according to his presenting symptoms and with elevated proBNP and chest x-ray findings were most consistent with this diagnosis. - Spironolactone 25 mg PO to decrease pulmonary volume load; Aspirin 81 mg and Clopidogrel 75 mg PO for prevention of acute coronary and neurological deficits - Pertinent Lab findings: Hgb 8.9, proBNP 7780 - Chest CTA: 1. No evidence for acute or chronic pulmonary embolism. 2. There is a pulmonary hypertension. 3. Parenchymal disease at both bases appears similar favoring chronic rounded atelectasis. 4. Increasing nonspecific mildly enlarged mediastinal lymph nodes. 4. Pleural effusions similar. - CXR: 1. Slightly increasing bilateral pleural effusions. Persistent pulmonary edema. - AM Cardiology Consult with Dr. Jones - I/O strict monitoring - DVT PPx. As Ranked By This Provider Problem List: 1. Cardiogenic pulmonary edema 2. Pleural effusion 3. Weakness 4. CHF (congestive heart failure) 5. Bladder cancer 6. PVD (peripheral vascular disease) with claudication Core Measures/Misc (07/14) Acute Coronary Syndrome ACS Diagnosis: No Congestive Heart Failure Congestive Heart Failure Diagnosis Yes Cerebrovascular Accident CVA/TIA Diagnosis: No VTE (View Protocol) VTE Risk Factors Acute Medical Illness No Mechanical VTE Prophylaxis d/t N/A MechProphylax Ordered No VTE Pharm Prophylaxis d/t NA PharmProphylax ordered Sepsis (View protocol) Sepsis Present: No If YES complete Sepsis Event Note If YES complete Sepsis Event Note Basil Cotot 05/02/18 0207: Core Measures/Misc (07/14) Sepsis (View protocol) If YES complete Sepsis Event Note If YES complete Sepsis Event Note Resident Review Statement Resident Statement: examined this patient, discussed with corporate strategy intern Other Findings: Ms Mejia is an 78 year old woman w/ a PMHx of HTN, CAD s/p CABG, ischemic cardiomyopathy with HFrEF on 2L O2, bilateral carotid endarterectomy, bladder cancer s/p intravesical treatment, recurrent UTI, T2DM, PAD s/p left femoral angioplasty c/b pseudoaneurysm with subsequent repair was brought in with a chief concern of progressive lethargy and fatigue, decreased p.o. intake. No fever, chills, chest pain, abdominal pain nausea vomiting. No dizziness, lightheadedness or falls lately. Reported occassional dyspnea upon exertion, and has been compliant w/ his medications. Reports occasional indiscretion to salt intake, but largely compliant. Has been taking his Bumetanide regularly, and there has been no change in his urine output or has any pedal edema. Checks his weight regularly, and is very cognizant of his weight gain. He follows up with Dr. Jones regularly. At the time of admission-temperature 98.2, pulse rate 63, respiration 22, blood pressure 1 1 6/56, pulse ox 99% on 2 L. Pertinent lab findings- WBC 8.5 (84% granulocytes),, hemoglobin 8.9 (baseline around 9), MCV 74.2, platelets 339. Sodium 138, potassium 5.0, chloride 97, bicarb 29, anion gap 12 BUN 25, creatinine 0.7, glucose 126, d Dimer 1775 ProBNP 7780. Urinalysis clear. Chest [id number] increasing bilateral pleural effusions. Persistent pulmonary edema. CTA chest-1. No evidence for acute or chronic pulmonary embolism.2. There is a pulmonary hypertension. 3. Parenchymal disease at both bases appears similar favoring chronic roundedatelectasis.4. Increasing nonspecific mildly enlarged mediastinal lymph nodes.4. Pleural effusions similar.VTE: negative Echo 11/14- Normal size left ventricle. Borderline left ventricular hypertrophy. Left ventricular ejection fraction is estimated at 35-40 %. Severe inferior and posterior hypokinesis. Mild left atrial dilatation. Mild mitral regurgitation. Mild tricuspid regurgitation. Right ventricular systolic pressure estimated to be elevated at 58 mmHg. Mild pulmonic regurgitation. Left pleural effusion is seen. Problem list: 1. Cardiogenic pulm edema 2. Ischemic CM w/ HFrEF 35-40% 3. h/o CAD s/p CABG 4. s/p AICD 5. Microcytic anemia 6. b/l Pleural effusion chronic Etiology in this case is likely volume overload is which is a rapidly progressive failure state given a possible precipitating event medication noncompliance or worsening clinical condition on chronic systolic+diastolic right and left-sided heart failure. Other etiologies such as myocardial ischemia, hypertension,pulmonary hypertension or anemia could be considered. Given his worsening clinical condition, conversation has to happen about a possible investigation, if pacemaker is indeed functional. Plan: -admit the patient on telemetry -follow serial EKGs, troponins -daily Ins and Outs -daily weights -Hold iv diuretics for now. Restart after discussing w/ the electron tube assembler. -Check BEP daily while on diuretics. -Check TSHR -2D cardiac echo to assess ejection fraction, valvular pathology or regional wall motion abnormalities -supplemental oxygen as needed -Elevate head of the bed to reduce venous return -Consider NIPPV to reduce work of breathing, improve oxygenation, if worse. -CHF diet, 2gm salt restriction -Consider cxr after adequate diuresis. - PT/OT DVT Ppx- heparin sc GI Ppx- protonix po. Patricia Cedeno MD 05/02/18 0332: Core Measures/Misc (07/14) Sepsis (View protocol) If YES complete Sepsis Event Note If YES complete Sepsis Event Note Attending MD Review Statement Attending Statement Attending MD Statement: examined this patient, discuss w/resident/PA/CAPPER MACHINE OPERATOR, agreed w/resident/PA/CAPPER MACHINE OPERATOR, reviewed EMR data (avail) Attending Assessment/Plan: 78M PMH bladder cancer s/p intravesical treatment, systolic chf, ischemic cmp , CAD s/p cabg, b/l CEA, PAD, s/p AICD and PPM placement presenting with a ~1 week history of progressive fatigue, weakness, mild SOB. Patient has been compliant with his diuresis since being discharged. He appears clinically dehydrated, no leg edema, no JVD. He does have bibasilar crackles on exam, and BNP is elevated. Oxygen requirements have been worsening at home. CXR shows pulmonary edema, EKG ventricularly paced without acute changes. Given gentle IV hydration in ER. 1. Cardiogenic pulmonary edema 2. Intravascular depletion Plan - Admit to telemetry - Hold diuretics - May require ionotropes - I/O daily weights - Cardiology consult - Titrate down oxygen as tolerated - Continue home medications - DVT PPx
--- NOTE | 2018-05-02 03:34 | Admission Certification ---
Admission Certification Certification Statement - As attending physician, I certify that at the time of - admission, based on clinical presentation, severity of - symptoms, need for further diagnostic testing and - therapeutic interventions, and risk of adverse outcomes - without in-hospital treatment, in my clinical assessment, - this patient requires an acute hospital stay for a minimum - of two nights or longer. I have also considered psychsocial - factors such as support system, advanced age, financial - issues, cognitive issues, and failed out-patient treatments, - past re-admission history, safety of patient, and lack of - compliance as applicable. Specific rationale supporting this admission is: Dehydration with pulmonary edema concerning for heart failure
[2018-05-02 06:09] LABS: ABSOLUTE BASOPHIL COUNT 0 /CUMM (0.0-0.2); ABSOLUTE EOSINOPHIL COUNT 0.1 /CUMM (0.0-0.7); ABSOLUTE GRANULOCYTE CT 6.5 /CUMM (1.4-6.5); ABSOLUTE LYMPH COUNT 0.5 /CUMM (1.2-3.4); ABSOLUTE MONOCYTE COUNT 0.7 /CUMM (0.10-0.60); BASOPHIL % 0 % (0.0-2.0); EOSINOPHIL % 0.8 % (0-5); GRANULOCYTE % 83.8 % (42.2-75.2); HEMATOCRIT 26.1 % (42-52); MEAN CORPUSCULAR HGB 23.6 PG (27.0-31.0); MEAN CORPUSCULAR HGB CONC 31.8 G/DL (33.0-37.0); MEAN CORPUSCULAR VOLUME 74.4 FL (80.0-94.0); MEAN PLATELET VOLUME 7.5 FL (7.4-10.4); PLATELET COUNT 294 /CUMM (130-400); RBC DISTRIBUTION WIDTH 18.7 % (11.5-14.5); WHITE BLOOD CELL COUNT 7.7 /CUMM (4.8-10.8)
--- NOTE | 2018-05-02 07:58 | Event Note ---
Event Note Event Note: Patient seen and examined this morning. He is sitting comfortably in a chair with no complaints. His vitals are stable and his oxygen was decreased this morning from 2 L to 1 L which is his home oxygen dose. On physical exam the patient has no lower extremity edema but crackles throughout in his lungs. The patient usually ambulates with a cane or walker. The patient had a CTA done for pulmonary embolism, negative for PE but parenchymal disease at both bases appears similar favoring chronic rounded atelectasis. Chest x-ray showed slightly increasing bilateral pleural effusions with persistent pulmonary edema. As per cardiology today we will consider therapeutic right thoracentesis if symptoms continue or worsen but for now no further workup regarding the infiltrates as per pulmonary consult. Bilateral large pleural effusion which has been present for more than one year, bilateral thoracentesis done does reveal that it's most likely a transudate with low protein. ACS was ruled out. We are treating the patient for his chronic systolic and diastolic CHF EF 30-35% , stage 2 diastolic dysfunction) with spironolactone and Bumex 2 mg. We will follow up a repeat echocardiogram today Patient also has anemia with low MCV, iron studies done which showed a low iron, normal ferritin, normal TIBC. Iron supplementation was started. Patient also noted 1 week of dysphasia. We did speech and swallow evaluation who stated that the patient should be on mechanical ground and thin liquids.
[2018-05-02 08:13] VITALS: BP 128/60
--- NOTE | 2018-05-02 11:34 | PN- Att Addend ---
Attending Addendum Attending Brief Note Laboratory Tests 05/02/18 1027: Troponin I Pending 05/02/18 0609: Urinalysis LIGHT H, Urine Color YEL, Urine Clarity HAZY H, Urine pH 6.0, Ur Specific [place] 1.020, Urine Protein TRACE H, Urine Ketones NEG, Urine Nitrite NEG, Urine Bilirubin NEG, Urine Urobilinogen 1.0, Ur Leukocyte Esterase TRACE H , Ur Microscopic SEDIMENT EXAMINED, Urine WBC RARE, Urine Mucus RARE, Urine Hemoglobin NEG, Urine Glucose NEG 05/02/18 0602: Anion Gap 11, Estimated GFR > 60, BUN/Creatinine Ratio 36.7 H, Glucose 95, Calcium 8.3 L, CBC w Diff NO MAN DIFF REQ, RBC 3.50 L, MCV 74.4 L, MCH 23.6 L, MCHC 31.8 L, RDW 18.7 H, MPV 7.5, Gran % 83.8 H, Lymphocytes % 6.0 L, Monocytes % 9.4 H, Eosinophils % 0.8, Basophils % 0, Absolute Granulocytes 6.5, Absolute Lymphocytes 0.5 L, Absolute Monocytes 0.7 H, Absolute Eosinophils 0.1 , Absolute Basophils 0 05/02/18 0243: Troponin I < 0.01 05/01/18 1952: Anion Gap 12, Estimated GFR > 60, BUN/Creatinine Ratio 35.7 H, Glucose 126 H, Calcium 8.7, Magnesium 1.9, Troponin I < 0.01, [id number] Pept 7780 H, D -Dimer High Sensitivty 1775 H, CBC w Diff NO MAN DIFF REQ, RBC 3.76 L, MCV 74.2 L, MCH 23.7 L, MCHC 31.9 L, RDW 18.8 H, MPV 8.2, Gran % 84.9 H, Lymphocytes % 5.5 L, Monocytes % 8.4, Eosinophils % 1.0, Basophils % 0.2, Absolute Granulocytes 7.2 H, Absolute Lymphocytes 0.5 L, Absolute Monocytes 0.7 H, Absolute Eosinophils 0.1, Absolute Basophils 0 Vital Signs Date Time Temp Pulse Resp B/P B/P Pulse O2 O2 Flow FiO2 Mean Ox Delivery Rate 05/02 928 98.2 68 18 134/74 97 Nasal 1.0L Cannula 05/02 820 96 Nasal 1.0L Cannula 07/06 0813 98.1 68 18 128/60 96 Room Air 07/06 0735 98.1 68 18 128/60 96 Nasal 1.0L Cannula 07/06 0606 98.7 66 18 135/69 94 Nasal 2.0L Cannula / 0211 Nasal 2.0L Cannula / 0202 98.0 63 18 124/59 96 Room Air 07/05 2316 98.3 66 20 127/58 96 Nasal 2.0L Cannula / 2143 98 Nasal 2.0L Cannula / 2142 98.6 60 20 122/58 99 Nasal 2.0L Cannula 07/ 1906 98.2 63 22 116/56 99 Nasal 2.0L Cannula 78 yr old male who is known to me from pervious admissions with pmh of HTN, CAD, s/p CABG, ischemic cardiomyopathy with HFrEF and Diastolic CHF as well, bilateral carotid endarterectomy, bladder cancer s/p intravesical treatment, recurrent UTI, T2DM, and PAD s/p left femoral angioplasty presented with c/c of weaknes for last few days. Pt was placed in observation status for further evaluation of his symptoms. Pt also complains of coughing with eating. At baseline he walks at home with cane or walker. Was using Bumex at home for diuresis which was held at admission. Will resume it given his bp is stable Anemia with low MCV- pts baseline hb has dropped over the last one year and also has low mcv. Likely anemia of chronic disease. will get iron studies and will f/ u on those. Chronic systolic and diastolic CHF- looks stable. Has inspiratory crackles on both lung bases. will start him back on home dose of bumex. will get cardiology consult. Trop negative. CTA negative for PE . ? Dysphagia- coughs with eating. will get speech eval. Emphysema with previous smoking history. will get pulmonary consult. pt sees dr bruce.
--- NOTE | 2018-05-02 12:58 | Cons- Cardiology ---
General Information and HPI Consulting Request Date of Consult: 05/02/18 Requested By: Malcolm Cisneros MD Reason for Consult: Worsening shortness of breath Source of Information: patient, old records Exam Limitations: no limitations History of Present Illness: Mr. Mejia is an 78-year-old male who is known to me. His past medical history is remarkable for hypertension, coronary disease, prior bypass surgery, ischemic cardiomyopathy with ejection fraction of 35%, cardiac catheterization in early 2018 which showed patent left internal mammary artery graft to the LAD but occluded vein grafts, history of bladder cancer, history of carotid artery disease, status post bilateral endarterectomy, diabetes, and peripheral artery disease status post left femoral angioplasty. The patient presented to the emergency with complaints of increasing weakness and shortness of breath. He denies any chest discomfort or other cardiac symptoms. The patient has not been recently seen in our office. Allergies/Medications Allergies: Coded Allergies: No Known Allergies (02/16/17) Home Med List: Acetaminophen (Tylenol Extra Strength) 500 MG TABLET 2 TAB PO PRN PAIN ( Reported) Albuterol Sulfate (Proair Hfa) 90 MCG HFA.AER.AD 2 PUF INH Q4-6 PRN PRN SOB ( Reported) Aspirin (Ecotrin*) 81 MG TABLET.DR 1 TAB PO DAILY HEART (Reported) Atorvastatin Calcium (Lipitor) 40 MG TABLET 1 TAB PO DAILY heart (Reported) Beta-Carotene (Beta Carotene) 10,000 UNIT CAPSULE 1 CAP PO DAILY SUPPLEMENT ( Reported) Bumetanide 1 MG TABLET 1 TAB PO BID diuretic Carvedilol 25 MG TABLET 1 TAB PO BID HEART/BP (Reported) Clopidogrel Bisulfate (Plavix) 75 MG TABLET 1 TAB PO DAILY BLOOD THINNER ( Reported) Ferrous Sulfate 325 MG (65 MG IRON) TABLET.DR 325 MG PO BID ANEMIA . Finasteride 5 MG TABLET 1 TAB PO DAILY PROSTATE (Reported) Gabapentin 100 MG CAPSULE 100 MG PO TID neuropathy Losartan Potassium (Cozaar) 25 MG TABLET 1 TAB PO DAILY HTN (Reported) Magnesium Oxide (Magnesium) 400 MG CAPSULE 1 CAP PO DAILY supplement Melatonin 3 MG TABLET 6 MG PO QPM SUPPLEMENT (Reported) Metformin HCl 500 MG TABLET 1 TAB PO BID DM (Reported) Multivit-Min/FA/Lycopen/Lutein (Centrum Silver Men Tablet) 300 MCG-600 MCG-300 MCG TABLET 1 TAB PO DAILY SUPPLEMENT (Reported) Omeprazole 20 MG TABLET.DR 1 TAB PO DAILY AC GI (Reported) Ranolazine (Ranexa) 500 MG TAB.ER.12H 2 TAB PO BID ANGINA/CHEST PAIN ( Reported) Spironolactone 25 MG TABLET 1 TAB PO DAILY DIURETIC (Reported) Tamsulosin HCl (Flomax) 0.4 MG CAP.ER.24H 1 CAP PO DAILY PROSTATE (Reported) Tiotropium [place] (Spiriva) 18 MCG CAP.W.DEV 1 PUF INH DAILY lung Ubidecarenone (Co Q-10) 200 MG CAPSULE 1 TAB PO DAILY SUPPLEMENT (Reported) Current Medications: Current Medications Sig/Damon Start time Last Medication Dose Route Stop Time Status Admin Albuterol Sulfate 2 PUF Q4-6 PRN PRN 05/02 0215 AC INH Aspirin Buffered 81 MG DAILY 05/02 900 AC 05/02 PO 0920 Atorvastatin Calcium 40 MG 1700 05/02 1700 AC PO Bumetanide 2 MG DAILY 05/02 1100 AC 05/02 PO 1115 Carvedilol 25 MG BID 05/02 900 AC 05/02 PO 0920 Clopidogrel Bisulfate 75 MG DAILY 05/02 900 AC 05/02 PO 0920 Finasteride 5 MG DAILY 05/02 900 AC 05/02 PO 0920 Gabapentin 400 MG TID 05/02 900 AC 05/02 PO 0920 Heparin Sodium 5,000 UNIT Q8 05/02 600 AC 05/02 (Porcine) SC 0603 Heparin Sodium 0 .STK-MED ONE 05/02 0553 DC (Porcine) .ROUTE Insulin Aspart 0 TIDAC 05/02 800 AC 05/02 SC 1219 Losartan Potassium 25 MG DAILY 05/02 900 AC 05/02 PO 0920 Omeprazole 40 MG DAILY AC 05/02 07 AC 05/02 PO 0603 Omeprazole 0 .STK-MED ONE 05/02 0553 DC PO Ranolazine 1,000 MG BID 05/02 900 AC 05/02 PO 0920 Sodium Chloride 500 ML BOLUS ONE 05/01 1915 DC 05/01 IV 05/01 Spironolactone 25 MG DAILY 05/02 900 AC 05/02 PO 0920 Tamsulosin HCl 0.4 MG DAILY 05/02 900 AC 05/02 PO 0920 Tiotropium [place] 1 PUF DAILY 05/02 900 AC 05/02 INH 0930 Past History Travel History Traveled to [place] past 21 day No Medical History Neurological: NONE EENT: oral HSV Cardiovascular: CAD, CHF, hypertension, hyperlipidemia, PVD Respiratory: emphysema Gastrointestinal: NONE Hepatic: NONE Renal: NONE Musculoskeletal: ARTHRITIS Psychiatric: NONE Endocrine: diabetes Blood Disorders: NONE Cancer(s): 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 Family History Relations & Conditions If Any: FATHER Myocardial infarction MOTHER Myocardial infarction Psychosocial History Who Do You Live With? spouse Services at Home: None Primary Language: Tuvaluan Smoking Status: Former Smoker Functional Ability ADLs Independent: dressing, eating, toileting, bathing. Ambulation: cane IADLs Independent: shopping, housework, finances, food prep, telephone, transportation , medication admin. Exam & Diagnostic Data Vital Signs and I&O Vital Signs Date Time Temp Pulse Resp B/P B/P Pulse O2 O2 Flow FiO2 Mean Ox Delivery Rate 05/02 1140 97.1 66 16 130/70 98 Room Air 05/02 0928 98.2 68 18 134/74 97 Nasal 1.0L Cannula 05/02 0820 96 Nasal 1.0L Cannula 05/02 0813 98.1 68 18 128/60 96 Room Air 05/02 0735 98.1 68 18 128/60 96 Nasal 1.0L Cannula 05/02 0606 98.7 66 18 135/69 94 Nasal 2.0L Cannula 05/02 0211 Nasal 2.0L Cannula 05/02 0202 98.0 63 18 124/59 96 Room Air 05/01 2316 98.3 66 20 127/58 96 Nasal 2.0L Cannula 05/01 2143 98 Nasal 2.0L Cannula 05/01 2142 98.6 60 20 122/58 99 Nasal 2.0L Cannula 05/01 1906 98.2 63 22 116/56 99 Nasal 2.0L Cannula Intake & Output 05/02 1600 05/02 0800 05/02 0000 05/01 1600 05/01 0805/01 0000 Intake Total 380 500 Output Total 500 Balance 380 -500 500 Intake, IV 500 Intake, Oral 380 Output, Urine 500 Patient 135 lb 127 lb Weight Weight Estimated Measurement Method Physical Exam: General Appearance: Thin elderly male, frail appearing, alert and oriented, no acute distress. Head: normal HEENT: Normal Neck: supple, JVP elevated 3 cm at 45, carotid upstrokes normal bilaterally, no masses or thyromegaly Respiratory: chest non-tender, clear to auscultation and percussion bilaterally Cardiovascular: regular rate/rhythm, normal S1, S2, 1-2/6 systolic murmur Abdomen: normal bowel sounds, soft, non-tender Extremities: normal inspection, no edema Vascular: Pulses are 2+ and equal bilaterally Neurologic: Grossly normal/nonfocal Labs/Evens Results: Laboratory Tests 05/02 05/02 1027 0609 Chemistry Troponin I (<0.11 ng/ml) < 0.01 Urines Urinalysis LIGHT H Urine Color (YEL,AMB,STR) YEL Urine Clarity (CLEAR) HAZY H Urine pH (5.0 - 8.0) 6.0 Ur Specific [place] (1.001 - 1.035) 1.020 Urine Protein (NEG,<30 MG/DL) TRACE H Urine Ketones (NEG) NEG Urine Nitrite (NEG) NEG Urine Bilirubin (NEG) NEG Urine Urobilinogen (0.1 - 1.0 EU/dl) 1.0 Ur Leukocyte Esterase (NEG) TRACE H Ur Microscopic SEDIMENT EXAMINED Urine WBC (0 - 2 /HPF) RARE Urine Mucus (FEW,NONE) RARE Urine Hemoglobin (NEG) NEG Urine Glucose (N MG/DL) NEG 05/02 05/02 0602 0243 Chemistry Sodium (137 - 145 mmol/L) 139 Potassium (3.5 - 5.1 mmol/L) 4.9 Chloride (98 - 107 mmol/L) 101 Carbon Dioxide (22 - 30 mmol/L) 26 Anion Gap (5 - 16) 11 BUN (9 - 20 mg/dL) 22 H Creatinine (0.7 - 1.2 mg/dL) 0.6 L Estimated GFR (>60 ml/min) > 60 BUN/Creatinine Ratio (7 - 25 %) 36.7 H Glucose (65 - 99 mg/dL) 95 Calcium (8.4 - 10.2 mg/dL) 8.3 L Iron (49 - 181 ug/dL) 27 L TIBC (261 - 462 ug/dL) 323 Ferritin (17.9 - 464 ng/mL) Pending Troponin I (<0.11 ng/ml) < 0.01 Hematology CBC w Diff NO MAN DIFF REQ WBC (4.8 - 10.8 /CUMM) 7.7 RBC (4.70 - 6.10 /CUMM) 3.50 L Hgb (14.0 - 18.0 G/DL) 8.3 L Hct (42 - 52 %) 26.1 L MCV (80.0 - 94.0 FL) 74.4 L MCH (27.0 - 31.0 PG) 23.6 L MCHC (33.0 - 37.0 G/DL) 31.8 L RDW (11.5 - 14.5 %) 18.7 H Plt Count (130 - 400 /CUMM) 294 MPV (7.4 - 10.4 FL) 7.5 Gran % (42.2 - 75.2 %) 83.8 H Lymphocytes % (20.5 - 51.1 %) 6.0 L Monocytes % (1.7 - 9.3 %) 9.4 H Eosinophils % (0 - 5 %) 0.8 Basophils % (0.0 - 2.0 %) 0 Absolute Granulocytes (1.4 - 6.5 /CUMM) 6.5 Absolute Lymphocytes (1.2 - 3.4 /CUMM) 0.5 L Absolute Monocytes (0.10 - 0.60 /CUMM) 0.7 H Absolute Eosinophils (0.0 - 0.7 /CUMM) 0.1 Absolute Basophils (0.0 - 0.2 /CUMM) 0 07/05 195 Chemistry Sodium (137 - 145 mmol/L) 138 Potassium (3.5 - 5.1 mmol/L) 5.0 Chloride (98 - 107 mmol/L) 97 L Carbon Dioxide (22 - 30 mmol/L) 29 Anion Gap (5 - 16) 12 BUN (9 - 20 mg/dL) 25 H Creatinine (0.7 - 1.2 mg/dL) 0.7 Estimated GFR (>60 ml/min) > 60 BUN/Creatinine Ratio (7 - 25 %) 35.7 H Glucose (65 - 99 mg/dL) 126 H Calcium (8.4 - 10.2 mg/dL) 8.7 Magnesium (1.6 - 2.3 mg/dL) 1.9 Troponin I (<0.11 ng/ml) < 0.01 [id number] Pept (<125 pg/mL) 7780 H Coagulation D-Dimer High Sensitivty (0 - 243 ng/ml) 1775 H Hematology CBC w Diff NO MAN DIFF REQ WBC (4.8 - 10.8 /CUMM) 8.5 RBC (4.70 - 6.10 /CUMM) 3.76 L Hgb (14.0 - 18.0 G/DL) 8.9 L Hct (42 - 52 %) 27.9 L MCV (80.0 - 94.0 FL) 74.2 L MCH (27.0 - 31.0 PG) 23.7 L MCHC (33.0 - 37.0 G/DL) 31.9 L RDW (11.5 - 14.5 %) 18.8 H Plt Count (130 - 400 /CUMM) 339 MPV (7.4 - 10.4 FL) 8.2 Gran % (42.2 - 75.2 %) 84.9 H Lymphocytes % (20.5 - 51.1 %) 5.5 L Monocytes % (1.7 - 9.3 %) 8.4 Eosinophils % (0 - 5 %) 1.0 Basophils % (0.0 - 2.0 %) 0.2 Absolute Granulocytes (1.4 - 6.5 /CUMM) 7.2 H Absolute Lymphocytes (1.2 - 3.4 /CUMM) 0.5 L Absolute Monocytes (0.10 - 0.60 /CUMM) 0.7 H Absolute Eosinophils (0.0 - 0.7 /CUMM) 0.1 Absolute Basophils (0.0 - 0.2 /CUMM) 0 Diagnostic Data CXR Results FINDINGS: Dual chamber pacemaker device grossly intact. Persistent changes of pulmonary edema with slightly increasing bilateral partially loculated subpulmonic pleural effusions. No major zones of airspace disease visible. No other change. IMPRESSION: Slightly increasing bilateral pleural effusions. Persistent pulmonary edema. Other Results CTA chest: FINDINGS: QUALITY OF STUDY/CONTRAST BOLUS: Satisfactory PULMONARY ARTERIES: No central or segmental pulmonary emboli. Pulmonary arteries are moderately prominent consistent with pulmonary hypertension. THORACIC AORTA: No aneurysm or dissection. Severe atherosclerotic changes including coronary vessels. LUNG: Severe advanced emphysema with extensive compressive atelectasis both lower lobes with high density material presumably aspirated barium. Round atelectasis pattern. Appearance is similar to baseline. PLEURA: Right greater than left moderate pleural effusions persist. MEDIASTINUM: Reactive appearing lymphadenopathy slightly progressive since baseline. Largest no precarinal location measures up to approximately 16 mm short axis. There is mild flattening of the interventricular septum suggesting increased right heart pressures. Pacer device again noted. CHEST WALL/AXILLA: No axillary or internal mammary lymphadenopathy. OSSEOUS STRUCTURES: No acute or suspicious osseous abnormality. UPPER ABDOMEN: Unremarkable. No reflux of contrast into the hepatic veins to suggest elevated right heart pressures. IMPRESSION: 1. No evidence for acute or chronic pulmonary embolism. 2. There is a pulmonary hypertension. 3. Parenchymal disease at both bases appears similar favoring chronic rounded atelectasis. 4. Increasing nonspecific mildly enlarged mediastinal lymph nodes. 4. Pleural effusions similar. Assessment/Plan Assessment/Plan Assessment: 1. Worsening shortness of breath, likely multifactorial-the patient's chest x- ray and CAT scan showed bilateral pleural effusions. There is, however, no evidence of overt interstitial edema. There is evidence of underlying pulmonary disease, lymphadenopathy, etc. I suspect the symptoms are related to both underlying pulmonary issues and possibly subtle acute on chronic HFrEf/pleural effusions. 2. Bilateral pleural effusions, unchanged from previously 3. History of coronary disease, status post bypass surgery-last cardiac catheterization in early 2018 results noted 4. COPD with moderate to severe pulmonary hypertension on last echocardiogram 5. History of hypertension 6. History of diabetes 7. History of peripheral arterial disease 8. PPM/AICD 9. Worsening microcytic anemia Recommendations: -Admit to telemetry for monitoring -Check continue regular medications -Serial troponins -Continue to monitor intakes, outputs, daily weights. -Please try to obtain any recent records from [facility] -Consideration for therapeutic right thoracentesis -Begin iron supplementation -Consider checking B12 and folate as well - Consult Acknowledgment - Thank you for your consult request.
[2018-05-02 16:07] VITALS: BP 122/74
--- NOTE | 2018-05-02 17:16 | Cons- Pulmonary ---
General Information and HPI Consulting Request Date of Consult: 05/02/18 Requested By: med team History of Present Illness: Mr. Mejia is an 78-year-old male wiht chf here for dyspnea His past medical history is remarkable for hypertension, coronary disease, prior bypass surgery, ischemic cardiomyopathy with ejection fraction of 35%, cardiac catheterization in early 2018 which showed patent left internal mammary artery graft to the LAD but occluded vein grafts, history of bladder cancer, history of carotid artery disease, status post bilateral endarterectomy, diabetes, and peripheral artery disease status post left femoral angioplasty. The patient presented to the emergency with complaints of increasing weakness and shortness of breath. He denies any chest discomfort or other cardiac symptoms. Allergies/Medications Allergies: Coded Allergies: No Known Allergies (02/16/17) Home Med List: Acetaminophen (Tylenol Extra Strength) 500 MG TABLET 2 TAB PO PRN PAIN ( Reported) Albuterol Sulfate (Proair Hfa) 90 MCG HFA.AER.AD 2 PUF INH Q4-6 PRN PRN SOB ( Reported) Aspirin (Ecotrin*) 81 MG TABLET.DR 1 TAB PO DAILY HEART (Reported) Atorvastatin Calcium (Lipitor) 40 MG TABLET 1 TAB PO DAILY heart (Reported) Beta-Carotene (Beta Carotene) 10,000 UNIT CAPSULE 1 CAP PO DAILY SUPPLEMENT ( Reported) Bumetanide 2 MG TABLET 0.5-1 TAB PO DAILY DIURETIC (Reported) IF Weight greater than 135 lbs take whole tablet Otherwise 1/2 tablet Carvedilol 25 MG TABLET 1 TAB PO BID HEART/BP (Reported) Clopidogrel Bisulfate (Plavix) 75 MG TABLET 1 TAB PO DAILY BLOOD THINNER ( Reported) Finasteride 5 MG TABLET 1 TAB PO DAILY PROSTATE (Reported) Gabapentin 400 MG CAPSULE 1 CAP PO TID NEUROPATHY (Reported) Losartan Potassium (Cozaar) 25 MG TABLET 1 TAB PO DAILY HTN (Reported) Magnesium Oxide (Magnesium) 400 MG CAPSULE 1 CAP PO DAILY supplement Melatonin 3 MG TABLET 6 MG PO QPM SUPPLEMENT (Reported) Metformin HCl 500 MG TABLET 1 TAB PO BID DM (Reported) Multivit-Min/FA/Lycopen/Lutein (Centrum Silver Men Tablet) 300 MCG-600 MCG-300 MCG TABLET 1 TAB PO DAILY SUPPLEMENT (Reported) Omeprazole 20 MG TABLET.DR 1 TAB PO DAILY AC GI (Reported) Ranolazine (Ranexa) 500 MG TAB.ER.12H 2 TAB PO BID ANGINA/CHEST PAIN ( Reported) Spironolactone 25 MG TABLET 1 TAB PO DAILY DIURETIC (Reported) Tamsulosin HCl (Flomax) 0.4 MG CAP.ER.24H 1 CAP PO DAILY PROSTATE (Reported) Tiotropium [place] (Spiriva) 18 MCG CAP.W.DEV 1 PUF INH DAILY lung Ubidecarenone (Co Q-10) 200 MG CAPSULE 1 TAB PO DAILY SUPPLEMENT (Reported) Review of Systems Review of Systems Constitutional: Reports: see HPI. 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 Family History Relations & Conditions If Any: FATHER Myocardial infarction MOTHER Myocardial infarction Psychosocial History Who Do You Live With? spouse Services at Home: None Primary Language: Guinean Smoking Status: Former Smoker Functional Ability ADLs Independent: dressing, eating, toileting, bathing. Ambulation: cane IADLs Independent: shopping, housework, finances, food prep, telephone, transportation , medication admin. Exam & Diagnostic Data Last 24 Hrs of Vital Signs/I&O Vital Signs Date Time Temp Pulse Resp B/P B/P Pulse O2 O2 Flow FiO2 Mean Ox Delivery Rate 05/02 1607 97.4 60 30 122/74 88 07/06 1555 Nasal 2.0L Cannula 05/02 1515 97.2 68 18 126/84 96 Nasal 1.0L Cannula 05/02 1140 97.1 66 16 130/70 98 Room Air 05/02 0928 98.2 68 18 134/74 97 Nasal 1.0L Cannula 05/02 0820 96 Nasal 1.0L Cannula 05/02 0813 98.1 68 18 128/60 96 Room Air 05/02 0735 98.1 68 18 128/60 96 Nasal 1.0L Cannula 05/02 0606 98.7 66 18 135/69 94 Nasal 2.0L Cannula 05/02 0211 Nasal 2.0L Cannula 05/02 0202 98.0 63 18 124/59 96 Room Air 05/01 2316 98.3 66 20 127/58 96 Nasal 2.0L Cannula 05/01 2143 98 Nasal 2.0L Cannula 05/01 2142 98.6 60 20 122/58 99 Nasal 2.0L Cannula 05/01 1906 98.2 63 22 116/56 99 Nasal 2.0L Cannula Intake & Output 05/02 1600 05/02 0800 07 0000 Intake Total 640 500 Output Total 700 500 Balance -60 -500 500 Intake, IV 500 Intake, Oral 640 Output, Urine 700 500 Patient 135 lb 127 lb Weight Weight Estimated Measurement Method Last 48 Hrs of Labs/Evens: Laboratory Tests 05/02/18 1027: Troponin I < 0.01 05/02/18 0609: Urinalysis LIGHT H, Urine Color YEL, Urine Clarity HAZY H, Urine pH 6.0, Ur Specific [place] 1.020, Urine Protein TRACE H, Urine Ketones NEG, Urine Nitrite NEG, Urine Bilirubin NEG, Urine Urobilinogen 1.0, Ur Leukocyte Esterase TRACE H , Ur Microscopic SEDIMENT EXAMINED, Urine WBC RARE, Urine Mucus RARE, Urine Hemoglobin NEG, Urine Glucose NEG 05/02/18 0602: Anion Gap 11, Estimated GFR > 60, BUN/Creatinine Ratio 36.7 H, Glucose 95, Calcium 8.3 L, Iron 27 L, TIBC 323, Ferritin 23.8, Vitamin B12 566, Folate > 20.0 H, CBC w Diff NO MAN DIFF REQ, RBC 3.50 L, MCV 74.4 L, MCH 23.6 L, MCHC 31.8 L, RDW 18.7 H, MPV 7.5, Gran % 83.8 H, Lymphocytes % 6.0 L, Monocytes % 9.4 H, Eosinophils % 0.8, Basophils % 0, Absolute Granulocytes 6.5, Absolute Lymphocytes 0.5 L, Absolute Monocytes 0.7 H, Absolute Eosinophils 0.1, Absolute Basophils 0 05/02/18 0243: Troponin I < 0.01 05/01/181951: Anion Gap 12, Estimated GFR > 60, BUN/Creatinine Ratio 35.7 H, Glucose 126 H, Calcium 8.7, Magnesium 1.9, Troponin I < 0.01, [id number]-[id number] Pept 7780 H, D -Dimer High Sensitivty 1775 H, CBC w Diff NO MAN DIFF REQ, RBC 3.76 L, MCV 74.2 L, MCH 23.7 L, MCHC 31.9 L, RDW 18.8 H, MPV 8.2, Gran % 84.9 H, Lymphocytes % 5.5 L, Monocytes % 8.4, Eosinophils % 1.0, Basophils % 0.2, Absolute Granulocytes 7.2 H, Absolute Lymphocytes 0.5 L, Absolute Monocytes 0.7 H, Absolute Eosinophils 0.1, Absolute Basophils 0 Assessment/Plan Impression/Plan: CT chest IMPRESSION: 1. No evidence for acute or chronic pulmonary embolism. 2. There is a pulmonary hypertension. 3. Parenchymal disease at both bases appears similar favoring chronic rounded atelectasis. 4. Increasing nonspecific mildly enlarged mediastinal lymph nodes. 4. Pleural effusions similar. VTE: negative General Appearance: Thin elderly male, frail appearing, alert and oriented, no acute distress. Head: normal HEENT: Normal Neck: supple, JVP elevated 3 cm at 45, carotid upstrokes normal bilaterally, no masses or thyromegaly Respiratory: chest non-tender, clear to auscultation and percussion bilaterally Cardiovascular: regular rate/rhythm, normal S1, S2, 1-2/6 systolic murmur Abdomen: normal bowel sounds, soft, non-tender Extremities: normal inspection, no edema Vascular: Pulses are 2+ and equal bilaterally Neurologic: Grossly normal/nonfocal Mr. Mejia is a 78-year-old male with past medical history of CAD status post CABG, HFrEF (EF 30-35%, stage 2 diastolic dysfunction), hypertension, lipidemia, peripheral vascular disease, bilateral carotid endarterectomies, diabetes mellitus who presents with shortness of breath. His active issues include * Bilateral large pleural effusion which has been present for more than one year , bilateral thoracentesis done does reveal that it's most likely a transudate with low protein. This is due to chf prob * He does have bilateral effusions with lymphocyte predominance in his cell count. Unlikely this is tuberculosis or lymphoma. Flow cytometry is neg for lymphoproliferative disease and adenosine deaminase is low and unlikely tb * Significant cardiomyopathy, low ejection fraction, severe inferior and posterior hypokinesis with pulmonary hypertension * Very severe emphysema by CT scan with previous history of smoking. Patient does not appear to be a CO2 retainer and is oxygenating well * Bilateral lower lobe chronic atelectasis due to large effusions with probable rounded atx * Significant cachexia probably related to severe COPD and chronic heart failure * Severe peripheral vascular disease, multiple surgeries in the past, previous falls * Previous respiratory failure related to systolic heart failure now stable * Previous history of bladder cancer with no clinical evidence suggestive of recurrence, recurrent UTI, diabetes, significant peripheral vascular disease. 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 Maria De Jesus bautista) Get records from [facility] clinic at [place] Consult Acknowledgment - Thank you for your consult request.
[2018-05-02 22:27] VITALS: BP 122/88
[2018-05-03 06:00] VITALS: BP 116/60
--- NOTE | 2018-05-03 08:13 | PN- Housestaff ---
Sonya DEE,Ruth 05/03/18 0813: Subjective Follow-up For: CHF EXACERBATION PLEURAL EFFUSIONS EMPHYSEMA Tele-Events Since Last Visit: S-D PACING AT 64-81 NO EVENTS Subjective: Patient seen and examined. He has no complaints. He is still on 2 L nasal cannula 96% oxygen saturation. He has clarified today that his home dose of oxygen is 2 L and not 1 L. Review of Systems Constitutional: Reports: no symptoms. EENTM: Reports: no symptoms. Cardiovascular: Reports: no symptoms. Respiratory: Reports: no symptoms. Gastrointestinal: Reports: no symptoms. Genitourinary: Reports: no symptoms. Musculoskeletal: Reports: no symptoms. Skin: Reports: no symptoms. Neurological/Psychological: Reports: no symptoms. Objective Last 24 Hrs of Vital Signs/I&O Vital Signs Date Time Temp Pulse Resp B/P B/P Pulse O2 O2 Flow FiO2 Mean Ox Delivery Rate 05/03 0858 95 Nasal 2.0L Cannula 05/03 0856 60 126/58 05/03 0856 60 126/58 05/03 0856 60 126/58 05/03 0849 Nasal 2.0L Cannula 05/03 0849 60 116/60 05/03 0800 Nasal 2.5L Cannula 05/03 0600 97.5 60 26 116/60 96 05/03 0000 Nasal 1.0L Cannula 05/02 2227 98.6 70 30 122/88 90 /06 2133 74 18 122/88 05/02 2133 74 122/88 07/ 1607 97.4 60 30 122/74 88 /06 1555 Nasal 2.0L Cannula 05/02 1515 97.2 68 18 126/84 96 Nasal 1.0L Cannula 05/02 1140 97.1 66 16 130/70 98 Room Air Intake & Output 05/03 1600 07 0800 05/03 0000 Intake Total 120 Output Total 250 Balance 120 -250 Intake, Oral 120 Output, Urine 250 Patient 128 lb Weight Physical Exam General Appearance: Alert, Oriented X3, Cooperative, No Acute Distress Skin: No Rashes, No Breakdown, No Significant Lesion HEENT: Atraumatic, PERRLA Cardiovascular: Regular Rate, Normal S1, Normal S2 Lungs: Clear to Auscultation, Normal Air Movement Abdomen: Normal Bowel Sounds, Soft, No Tenderness Neurological: Normal Speech Extremities: No Clubbing, No Cyanosis, No Edema, Normal Pulses, No Tenderness/ Swelling Vascular: Normal Pulses, Pulses Symmetrical Current Medications: Current Medications Sig/Damon Start time Last Medication Dose Route Stop Time Status Admin Albuterol Sulfate 3 ML Q4P PRN 05/03 0915 AC INH Albuterol Sulfate 2 PUF Q4-6 PRN PRN 05/02 0215 AC 05/03 INH 0226 Aspirin Buffered 81 MG DAILY 05/02 0900 AC 05/03 PO 0850 Atorvastatin Calcium 40 MG 1700 05/02 1700 AC 05/02 PO 1758 Bumetanide 2 MG DAILY 05/02 1100 AC 05/03 PO 0850 Carvedilol 25 MG BID 05/02 09 AC 05/03 PO 0856 Clopidogrel Bisulfate 75 MG DAILY 05/02 09 AC 05/03 PO 0850 Docusate Sodium 100 MG DAILY NEEDED PRN 05/02 2000 AC PO Ferrous Sulfate 325 MG BID 05/02 1425 AC 05/03 PO 0850 Finasteride 5 MG DAILY 05/02 900 AC 05/03 PO 0850 Gabapentin 400 MG TID 05/02 900 AC 05/03 PO 0850 Heparin Sodium 0 .STK-MED ONE 05/02 1434 DC (Porcine) .ROUTE Heparin Sodium 5,000 UNIT Q8 05/02 600 AC 05/03 (Porcine) SC 0518 Insulin Aspart 0 TIDAC 05/02 800 AC 05/02 SC 1219 Losartan Potassium 25 MG DAILY 05/02 900 AC 05/03 PO 0856 Omeprazole 40 MG DAILY AC 05/02 07 AC 05/03 PO 0518 Polyethylene Glycol 17 GM DAILY 05/03 1000 AC PO Ranolazine 1,000 MG BID 05/02 900 AC 05/03 PO 0849 Spironolactone 25 MG DAILY 05/02 900 AC 05/03 PO 0850 Tamsulosin HCl 0.4 MG DAILY 05/02 900 AC 05/03 PO 0856 Tiotropium [place] 1 PUF DAILY 05/02 09 AC 05/03 INH 0849 Last 24 Hrs of Lab/Evens Results Last 24 Hrs of Labs/Mics: Laboratory Tests 05/03/18 0650: Anion Gap 9, Estimated GFR > 60, BUN/Creatinine Ratio 26.7 H 05/02/18 1027: Troponin I < 0.01 Assessment/Plan Assessment: Ms Mejia is an 78 year old woman w/ a PMHx of HTN, CAD s/p CABG, ischemic cardiomyopathy with HFrEF on 2L O2, bilateral carotid endarterectomy, bladder cancer s/p intravesical treatment, recurrent UTI, T2DM, PAD s/p left femoral angioplasty c/b pseudoaneurysm with subsequent repair was brought in with a chief concern of progressive lethargy and fatigue, decreased p.o. intake. No fever, chills, chest pain, abdominal pain nausea vomiting. No dizziness, lightheadedness or falls lately. Reported occassional dyspnea upon exertion, and has been compliant w/ his medications. Reports occasional indiscretion to salt intake, but largely compliant. Has been taking his Bumetanide regularly, and there has been no change in his urine output or has any pedal edema. Checks his weight regularly, and is very cognizant of his weight gain. He follows up with Dr. Jones regularly. At the time of admission-temperature 98.2, pulse rate 63, respiration 22, blood pressure 1 1 6/56, pulse ox 99% on 2 L. Pertinent lab findings- WBC 8.5 (84% granulocytes),, hemoglobin 8.9 (baseline around 9), MCV 74.2, platelets 339. Sodium 138, potassium 5.0, chloride 97, bicarb 29, anion gap 12 BUN 25, creatinine 0.7, glucose 126, d Dimer 1775 ProBNP 7780. Urinalysis clear. Chest [id number] increasing bilateral pleural effusions. Persistent pulmonary edema. CTA chest-1. No evidence for acute or chronic pulmonary embolism.2. There is a pulmonary hypertension. 3. Parenchymal disease at both bases appears similar favoring chronic roundedatelectasis.4. Increasing nonspecific mildly enlarged mediastinal lymph nodes.4. Pleural effusions similar.VTE: negative Echo 11/14- Normal size left ventricle. Borderline left ventricular hypertrophy. Left ventricular ejection fraction is estimated at 35-40 %. Severe inferior and posterior hypokinesis. Mild left atrial dilatation. Mild mitral regurgitation. Mild tricuspid regurgitation. Right ventricular systolic pressure estimated to be elevated at 58 mmHg. Mild pulmonic regurgitation. Left pleural effusion is seen. Problem list: 1. Cardiogenic pulm edema 2. Ischemic CM w/ HFrEF: We are treating the patient for his chronic systolic and diastolic CHF EF 30-35%, stage 2 diastolic dysfunction) 3. h/o CAD s/p CABG 4. s/p AICD 5. Microcytic anemia 6. b/l Pleural effusion chronic Etiology in this case is likely volume overload is which is a rapidly progressive failure state given a possible precipitating event medication noncompliance or worsening clinical condition on chronic systolic+diastolic right and left-sided heart failure. There is no evidence of overt interstitial edema. There is evidence of underlying pulmonary disease with lymphadenopathy. Most likely this is CHF with contribution from another underlying pulmonary issue. Patient is net -810 mL with 1450 mL output of urine from yesterday. Patient is noting no shortness of breath today and he is back on his baseline 2 L oxygen which he takes at home. CTA done for pulmonary embolism, negative for PE but parenchymal disease at both bases appears similar favoring chronic rounded atelectasis. Chest x-ray showed slightly increasing bilateral pleural effusions with persistent pulmonary edema. Plan: The patient is placed in observation on the telemetry unit for closer monitoring ACS ruled out with EKGs and troponins We will continue to monitor weight, intakes and outputs and daily weights. Continue good diuresis with Bumex 2 mg and spironolactone 25 mg daily As per cardiology we will consider therapeutic right thoracentesis if symptoms continue or worsen but for now no further workup regarding the infiltrates as per pulmonary consult. Bilateral large pleural effusion which has been present for more than one year, bilateral thoracentesis done previously does reveal that it's most likely a transudate with low protein i.e. CHF Follow-up on TSHr Follow up on 2D cardiac echo to assess ejection fraction, valvular pathology or regional wall motion abnormalities Supplemental oxygen as needed and TRC nebs Elevate head of the bed to reduce venous return Consider NIPPV to reduce work of breathing, improve oxygenation, if worse. CHF diet, 2gm salt restriction We will order chest x-ray after adequate diuresis. For patient's one week history of dysphagia we had swallow see him who suggested mechanical ground and thin liquids. Patient presented to ER with complaints of weakness. Physical therapy is suggesting discharged to home with PT services at the time of discharge. Patient usually ambulates with cane or walker B12 and folate levels normal Iron studies done showed low iron, normal ferritin, normal TIBC and iron supplementation was started. Follow stool guaiac DVT Ppx- heparin sc GI Ppx- protonix po. Problem List: 1. Pleural effusion 2. Cardiogenic pulmonary edema Pain Ratin Pain Location: NA Pain Goal: Remain pain free Pain Plan: NA Tomorrow's Labs & Rationales: LEON Phelan MD,Vanessa 05/03/18 0956: Attending MD Review Statement Attending Statement Attending MD Statement: examined this patient, discuss w/resident/PA/COMMODITY LEAD, agreed w/resident/PA/COMMODITY LEAD, reviewed EMR data (avail), discussed with nursing, discussed with case mgmt, amended to note Attending Assessment/Plan: Patient seen and examined. Lying in bed not in acute distress. No issues overnight reported by nursing staff. No events on telemetry monitoring overnight. He reports feeling a little better compared to presentation. He is afebrile. He is hemodynamically stable. He is maintaining saturation on his baseline 2 L of oxygen. On examination he does not appear to be in acute distress. He is very frail. He has diminished breath sounds in both lung bases with bilateral crepitus. Breath sounds appear more reduced in the right lung base. He has no peripheral edema. He has no jugular venous distention. Problems: 1. Shortness of breath; multifactorial 2. Bilateral pleural effusions; right greater than left 3. Chronic hypoxic respiratory failure 4. Severe emphysema 5. Severe pulmonary hypertension 6. Coronary disease status post CABG 7. Ischemic cardiomyopathy with reduced ejection fraction 8. Peripheral arterial disease 9. Hypertension 10. Diabetes mellitus 11. Chronic anemia Plan: -Patient has a multitude of reasons to be short of breath. He presented with worsening shortness of breath. His pleural effusions are unchanged and he does not appear volume overloaded clinically. He is on his baseline oxygen supplementation. He has not received any additional diuresis. In fact it appears he received about 500 cc of fluid on presentation. He has had no worsening of his respiratory symptoms. -While his pleural effusions may appear to be the etiology of his worsening shortness of breath radiology reports states that they are unchanged. He is not requiring additional oxygen supplementation. The risk of thoracocentesis may outweigh the benefits at this point. Per pulmonology evaluation previous thoracocentesis revealed transudative fluid. He also does not appear to be having exacerbation of his COPD at present. -Continue bronchodilator therapies. Continue his home diuretic regimen. Continue current oxygen supplementation. Obtain records from [facility]. -Check stool guaiac for further workup of his chronic anemia.
[2018-05-03] MEDS ORDERED: FERROUS SULFAT325 M2 PO (09:24)
--- NOTE | 2018-05-03 09:26 | Patient Discharge Instructions ---
See Addendum Discharge Instructions General Discharge Information You were seen/treated for: chf exacerbation Special Instructions: 1. follow up with PCP in one week 2. follow up with [facility]man in one week Diet Continue normal diet: Yes Activity Full Activity/No Limits: Yes Acute Coronary Syndrome Inclusion Criteria At DC or during hospital stay patient has or had the following: ACS DIAGNOSIS No Discharge Core Measures Meds if any: Prescribed or Continued at Discharge ORALIA/ARB if EF <40% No Meds if any: NOT Prescribed or Continued at Discharge Congestive Heart Failure Inclusion Criteria At DC or during hospital stay patient has or had the following: CHF DIAGNOSIS No Discharge Core Measures Meds if any: Prescribed or Continued at Discharge Meds if any: NOT Prescribed or Continued at Discharge Cerebrovascular accident Inclusion Criteria At DC or during hospital stay patient has or had the following: CVA/TIA Diagnosis No Discharge Core Measures Meds if any: Prescribed or Continued at Discharge Meds if any: NOT Prescribed or Continued at Discharge Venous thromboembolism Inclusion Criteria VTE Diagnosis No VTE Type NONE VTE Confirmed by (Test) NONE Discharge Core Measures - Per Current guidelines, there needs to be overlap - treatment for the first 5 days of Warfarin therapy. - If discharged on Warfarin prior to 5 days of - overlap therapy, the patient will need to be - assessed for post discharge needs including - *Post discharge parental anticoagulation - *Warfarin and/or parental anticoagulation education - *Follow up date to check INR post discharge At least 5 days overlap therapy as Inpatient No Meds if any: Prescribed or Continued at Discharge Note: Overlap Therapy is Warfarin and Anticoagulant Meds if any: NOT Prescribed or Continued at Discharge
--- NOTE | 2018-05-03 13:40 | PN- Cardiology ---
Subjective Subjective: * Patient feels improved. No chest pain or shortness of breath. * AV paced rhythm in demand mode * Highly elevated d-dimer without evidence of PE on his CT angiogram * normal troponins * worsening anemia although WBC and platelets are also trending down consistent with a dilutional effect Objective Vital Signs and I&Os Vital Signs Date Time Temp Pulse Resp B/P B/P Pulse O2 O2 Flow FiO2 Mean Ox Delivery Rate 05/03 0858 95 Nasal 2.0L Cannula 05/03 0856 60 126/58 05/03 0856 60 126/58 05/03 0856 60 126/58 05/03 0849 Nasal 2.0L Cannula 05/03 0849 60 116/60 05/03 0800 Nasal 2.5L Cannula 05/03 0600 97.5 60 26 116/60 96 05/03 0000 Nasal 1.0L Cannula 05/02 2227 98.6 70 30 122/88 90 / 2133 74 18 122/88 05/02 2133 74 122/88 05/02 1607 97.4 60 30 122/74 88 /06 1555 Nasal 2.0L Cannula 05/02 1515 97.2 68 18 126/84 96 Nasal 1.0L Cannula Intake & Output 05/03 1600 05/03 0800 / 0000 05/02 1600 05/02 0800 05/02 0000 Intake Total 120 640 500 Output Total 250 700 500 Balance 120 -250 -60 -500 500 Intake, IV 500 Intake, Oral 120 640 Output, Urine 250 700 500 Patient 128 lb 135 lb 127 lb Weight Weight Estimated Measurement Method Physical Exam: General: WD/thin male in NAD; alert and oriented x 3 HEENT: NC/AT, PERRL, EOMI Neck: +ve JVD Heart: RRR with 2/6 systolic murmur Lungs: crackles at bases bilaterally with decrease air movement Extremities: no edema Assessment/Plan Assessment/Plan * This patient has no evidence of an ACS. He does have pleural effusions and crackles. Will review his echocardiogram to assess for any decrease in myocardial function. Continue current dose of Bumex and spironolactone. Change Bumex to IV. Avoid potassium supplementation due to an increased potassium upon initial presentation. I would also decrease his Gabapentin since this medication is known to promote fluid retention. No change in other pre-admission medications. Continue telemetry? Yes
--- NOTE | 2018-05-03 13:43 | PN- Pulmonary ---
Subjective HPI/Critical Care Issues: Patient seen and examined. He has no complaints. He is still on 2 L nasal cannula 96% oxygen saturation. Review of Systems Constitutional: Reports: no symptoms. EENTM: Reports: no symptoms. Cardiovascular: Reports: no symptoms. Respiratory: Reports: no symptoms. Gastrointestinal: Reports: no symptoms. Genitourinary: Reports: no symptoms. Musculoskeletal: Reports: no symptoms. Skin: Reports: no symptoms. Neurological/Psychological: Reports: no symptoms. Objective Current Medications: Current Medications Sig/Damon Start time Last Medication Dose Route Stop Time Status Admin Albuterol Sulfate 3 ML Q4P PRN 05/03 0915 AC INH Albuterol Sulfate 2 PUF Q4-6 PRN PRN 05/02 0215 AC 05/03 INH 0226 Aspirin Buffered 81 MG DAILY 05/02 900 AC 05/03 PO 0850 Atorvastatin Calcium 40 MG 1700 05/02 1700 AC 05/02 PO 1758 Bumetanide 2 MG DAILY 05/02 1100 AC 05/03 PO 0850 Carvedilol 25 MG BID 05/02 900 AC 05/03 PO 0856 Clopidogrel Bisulfate 75 MG DAILY 05/02 900 AC 05/03 PO 0850 Docusate Sodium 100 MG DAILY NEEDED PRN 05/02 2000 AC PO Ferrous Sulfate 325 MG BID 05/02 1425 AC 05/03 PO 0850 Finasteride 5 MG DAILY 05/02 900 AC 05/03 PO 0850 Gabapentin 400 MG TID 05/02 900 AC 05/03 PO 0850 Heparin Sodium 0 .STK-MED ONE 05/02 1434 DC (Porcine) .ROUTE Heparin Sodium 5,000 UNIT Q8 05/02 600 AC 05/03 (Porcine) SC 0518 Insulin Aspart 0 TIDAC 05/02 800 AC 05/03 SC 1201 Losartan Potassium 25 MG DAILY 05/02 900 AC 05/03 PO 0856 Omeprazole 40 MG DAILY AC 05/02 700 AC 05/03 PO 0518 Polyethylene Glycol 17 GM DAILY 05/03 1000 AC 05/03 PO 1201 Ranolazine 1,000 MG BID 05/02 900 AC 05/03 PO 0849 Spironolactone 25 MG DAILY 05/02 900 AC 05/03 PO 0850 Tamsulosin HCl 0.4 MG DAILY 05/02 900 AC 05/03 PO 0856 Tiotropium [place] 1 PUF DAILY 05/02 0900 AC 05/03 INH 0849 Vital Signs & I&O Last 24 Hrs of Vitals and I&O: Vital Signs Date Time Temp Pulse Resp B/P B/P Pulse O2 O2 Flow FiO2 Mean Ox Delivery Rate 05/03 0858 95 Nasal 2.0L Cannula 05/03 0856 60 126/58 05/03 0856 60 126/58 05/03 0856 60 126/58 05/03 0849 Nasal 2.0L Cannula 05/03 0849 60 116/60 05/03 0800 Nasal 2.5L Cannula 05/03 06 97.5 60 26 116/60 96 05/03 0000 Nasal 1.0L Cannula 05/02 2227 98.6 70 30 122/88 90 05/02 2133 74 18 122/88 05/02 2133 74 122/88 05/02 1607 97.4 60 30 122/74 88 /06 1555 Nasal 2.0L Cannula 05/02 1515 97.2 68 18 126/84 96 Nasal 1.0L Cannula Intake & Output 05/03 1600 05/03 0800 05/03 0000 Intake Total 120 Output Total 250 Balance 120 -250 Intake, Oral 120 Output, Urine 250 Patient 128 lb Weight Laboratory Tests 05/03 05/03 05/02 1106 0650 1027 Chemistry Sodium (137 - 145 mmol/L) 138 138 Potassium (3.5 - 5.1 mmol/L) 4.4 4.8 Chloride (98 - 107 mmol/L) 104 101 Carbon Dioxide (22 - 30 mmol/L) 27 28 Anion Gap (5 - 16) 7 9 BUN (9 - 20 mg/dL) 15 16 Creatinine (0.7 - 1.2 mg/dL) 0.6 L 0.6 L Estimated GFR (>60 ml/min) > 60 > 60 BUN/Creatinine Ratio (7 - 25 %) 25.0 26.7 H Troponin I (<0.11 ng/ml) < 0.01 TSH &T3 &Free T4 Intrp (0.27 - 4.20 uIU/mL) 3.710 05/02 05/02 0609 0602 Chemistry Sodium (137 - 145 mmol/L) 139 Potassium (3.5 - 5.1 mmol/L) 4.9 Chloride (98 - 107 mmol/L) 101 Carbon Dioxide (22 - 30 mmol/L) 26 Anion Gap (5 - 16) 11 BUN (9 - 20 mg/dL) 22 H Creatinine (0.7 - 1.2 mg/dL) 0.6 L Estimated GFR (>60 ml/min) > 60 BUN/Creatinine Ratio (7 - 25 %) 36.7 H Glucose (65 - 99 mg/dL) 95 Calcium (8.4 - 10.2 mg/dL) 8.3 L Iron (49 - 181 ug/dL) 27 L TIBC (261 - 462 ug/dL) 323 Ferritin (17.9 - 464 ng/mL) 23.8 Vitamin B12 (239 - 931 pg/mL) 566 Folate (2.76 - 20.0 ng/mL) > 20.0 H Hematology CBC w Diff NO MAN DIFF REQ WBC (4.8 - 10.8 /CUMM) 7.7 RBC (4.70 - 6.10 /CUMM) 3.50 L Hgb (14.0 - 18.0 G/DL) 8.3 L Hct (42 - 52 %) 26.1 L MCV (80.0 - 94.0 FL) 74.4 L MCH (27.0 - 31.0 PG) 23.6 L MCHC (33.0 - 37.0 G/DL) 31.8 L RDW (11.5 - 14.5 %) 18.7 H Plt Count (130 - 400 /CUMM) 294 MPV (7.4 - 10.4 FL) 7.5 Gran % (42.2 - 75.2 %) 83.8 H Lymphocytes % (20.5 - 51.1 %) 6.0 L Monocytes % (1.7 - 9.3 %) 9.4 H Eosinophils % (0 - 5 %) 0.8 Basophils % (0.0 - 2.0 %) 0 Absolute Granulocytes (1.4 - 6.5 /CUMM) 6.5 Absolute Lymphocytes (1.2 - 3.4 /CUMM) 0.5 L Absolute Monocytes (0.10 - 0.60 /CUMM) 0.7 H Absolute Eosinophils (0.0 - 0.7 /CUMM) 0.1 Absolute Basophils (0.0 - 0.2 /CUMM) 0 Urines Urinalysis LIGHT H Urine Color (YEL,AMB,STR) YEL Urine Clarity (CLEAR) HAZY H Urine pH (5.0 - 8.0) 6.0 Ur Specific Hardy (1.001 - 1.035) 1.020 Urine Protein (NEG,<30 MG/DL) TRACE H Urine Ketones (NEG) NEG Urine Nitrite (NEG) NEG Urine Bilirubin (NEG) NEG Urine Urobilinogen (0.1 - 1.0 EU/dl) 1.0 Ur Leukocyte Esterase (NEG) TRACE H Ur Microscopic SEDIMENT EXAMINED Urine WBC (0 - 2 /HPF) RARE Urine Mucus (FEW,NONE) RARE Urine Hemoglobin (NEG) NEG Urine Glucose (N MG/DL) NEG 05/02 05/01 0243 1951 Chemistry Sodium (137 - 145 mmol/L) 138 Potassium (3.5 - 5.1 mmol/L) 5.0 Chloride (98 - 107 mmol/L) 97 L Carbon Dioxide (22 - 30 mmol/L) 29 Anion Gap (5 - 16) 12 BUN (9 - 20 mg/dL) 25 H Creatinine (0.7 - 1.2 mg/dL) 0.7 Estimated GFR (>60 ml/min) > 60 BUN/Creatinine Ratio (7 - 25 %) 35.7 H Glucose (65 - 99 mg/dL) 126 H Calcium (8.4 - 10.2 mg/dL) 8.7 Magnesium (1.6 - 2.3 mg/dL) 1.9 Troponin I (<0.11 ng/ml) < 0.01 < 0.01 [id number] Pept (<125 pg/mL) 7780 H Coagulation D-Dimer High Sensitivty (0 - 243 ng/ml) 1775 H Hematology CBC w Diff NO MAN DIFF REQ WBC (4.8 - 10.8 /CUMM) 8.5 RBC (4.70 - 6.10 /CUMM) 3.76 L Hgb (14.0 - 18.0 G/DL) 8.9 L Hct (42 - 52 %) 27.9 L MCV (80.0 - 94.0 FL) 74.2 L MCH (27.0 - 31.0 PG) 23.7 L MCHC (33.0 - 37.0 G/DL) 31.9 L RDW (11.5 - 14.5 %) 18.8 H Plt Count (130 - 400 /CUMM) 339 MPV (7.4 - 10.4 FL) 8.2 Gran % (42.2 - 75.2 %) 84.9 H Lymphocytes % (20.5 - 51.1 %) 5.5 L Monocytes % (1.7 - 9.3 %) 8.4 Eosinophils % (0 - 5 %) 1.0 Basophils % (0.0 - 2.0 %) 0.2 Absolute Granulocytes (1.4 - 6.5 /CUMM) 7.2 H Absolute Lymphocytes (1.2 - 3.4 /CUMM) 0.5 L Absolute Monocytes (0.10 - 0.60 /CUMM) 0.7 H Absolute Eosinophils (0.0 - 0.7 /CUMM) 0.1 Absolute Basophils (0.0 - 0.2 /CUMM) 0 Impression/Plan Impression/Plan Impression/Plan: CT chest IMPRESSION: 1. No evidence for acute or chronic pulmonary embolism. 2. There is a pulmonary hypertension. 3. Parenchymal disease at both bases appears similar favoring chronic rounded atelectasis. 4. Increasing nonspecific mildly enlarged mediastinal lymph nodes. 4. Pleural effusions similar. VTE: negative General Appearance: Thin elderly male, frail appearing, alert and oriented, no acute distress. Head: normal HEENT: Normal Neck: supple, JVP elevated 3 cm at 45, carotid upstrokes normal bilaterally, no masses or thyromegaly Respiratory: chest non-tender, clear to auscultation and percussion bilaterally Cardiovascular: regular rate/rhythm, normal S1, S2, 1-2/6 systolic murmur Abdomen: normal bowel sounds, soft, non-tender Extremities: normal inspection, no edema Vascular: Pulses are 2+ and equal bilaterally Neurologic: Grossly normal/nonfocal Mr. Mejia is a 78-year-old male with past medical history of CAD status post CABG, HFrEF (EF 30-35%, stage 2 diastolic dysfunction), hypertension, lipidemia, peripheral vascular disease, bilateral carotid endarterectomies, diabetes mellitus who presents with shortness of breath. His active issues include * Bilateral pleural effusion which has been present for more than one year, bilateral thoracentesis done does reveal that it's most likely a transudate with low protein. This is due to chf prob * He does have bilateral effusions with lymphocyte predominance in his cell count. Unlikely this is tuberculosis or lymphoma. Flow cytometry is neg for lymphoproliferative disease and adenosine deaminase is low and unlikely tb * Significant cardiomyopathy, low ejection fraction, severe inferior and posterior hypokinesis with pulmonary hypertension * Very severe emphysema by CT scan with previous history of smoking. Patient does not appear to be a CO2 retainer and is oxygenating well * Bilateral lower lobe chronic atelectasis due to large effusions with probable rounded atx * Significant cachexia probably related to severe COPD and chronic heart failure * Severe peripheral vascular disease, multiple surgeries in the past, previous falls * Previous respiratory failure related to systolic heart failure now stable * Previous history of bladder cancer with no clinical evidence suggestive of recurrence, recurrent UTI, diabetes, significant peripheral vascular disease. 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 Maria De Jesus bautista) Get records from chf clinic at [facility] to ne soon
[2018-05-03 15:21] VITALS: BP 110/68
[2018-05-03 22:00] VITALS: BP 124/84
[2018-05-04 06:39] VITALS: BP 126/56
--- NOTE | 2018-05-04 09:08 | PN- Housestaff ---
Tata Gomez 05/04/18 0907: Subjective Follow-up For: HF exacerbation, pleural effusion, emphysema Complaints: no complaints Tele-Events Since Last Visit: Single + double pacing. Heart rate 61-80 Subjective: No complaints/no events overnight Review of Systems Constitutional: Reports: see HPI. Objective Last 24 Hrs of Vital Signs/I&O Vital Signs Date Time Temp Pulse Resp B/P B/P Pulse O2 O2 Flow FiO2 Mean Ox Delivery Rate 05/04 1355 97.5 63 20 100/60 93 05/04 1130 92 Nasal 3.0L Cannula 05/04 0800 Nasal 2.0L Cannula 05/04 0732 63 126/56 05/04 0732 63 126/56 05/04 0731 63 126/56 05/04 0731 63 126/56 05/04 0639 96.3 63 28 126/56 92 Nasal 2.5L Cannula 05/04 0000 Nasal 2.5L Cannula 05/03 2200 98.4 58 18 124/84 97 05/03 2148 70 124/84 05/03 2148 70 124/84 05/03 1521 97.6 69 18 110/68 98 Intake & Output 05/04 1600 05/04 0800 05/04 0000 Intake Total 200 Output Total 300 225 Balance -300 200 -225 Intake, Oral 200 Number 0 Bowel Movements Output, Urine 300 225 Patient 126 lb Weight Physical Exam General Appearance: Alert, Oriented X3, Cooperative, No Acute Distress Skin: No Rashes, No Breakdown Skin Temp/Moisture Exam: Cool/Dry Sepsis Skin Exam (color): Normal for Ethnicity HEENT: Atraumatic Neck: Supple Cardiovascular: Regular Rate, Normal S1, Normal S2 Lungs: Clear to Auscultation, Normal Air Movement Abdomen: Normal Bowel Sounds, Soft, No Tenderness Neurological: Normal Speech Extremities: No Clubbing, No Cyanosis, No Edema Assessment/Plan Assessment: Ms Mejia is an 78 year old M w/ a PMHx of HTN, CAD s/p CABG, ischemic cardiomyopathy with HFrEF on 2L O2, bilateral carotid endarterectomy, bladder cancer s/p intravesical treatment, recurrent UTI, T2DM, PAD s/p left femoral angioplasty c/b pseudoaneurysm with subsequent repair was brought in with a chief concern of progressive lethargy and fatigue, decreased p.o. intake. Vitals: Temp 97.5, pulse 63, respiratory rate 20, blood pressure 100/6093% satting on 3 L oxygen. His home oxygen is 2 L. TSH: 3.710 Problems: 1. Cardiogenic pulm edema 2. Ischemic CM w/ HFrEF: We are treating the patient for his chronic systolic and diastolic CHF EF 30-35%, stage 2 diastolic dysfunction) 3. h/o CAD s/p CABG 4. s/p AICD 5. Microcytic anemia 6. b/l Pleural effusion chronic Plan: -Pt is on tele -monitor weight, intakes and outputs; and daily weights -Continue good diuresis with Bumex 2 mg and spironolactone 25 mg daily -Decrease his Gabapentin since this medication is known to promote fluid retention -Ahwzw-jdt-nuarf nebulizer therapy if wheezing now stable -f/u with Dr. Pretty his machine operator replanter upon d/c - Will be discharged to home with PT services at the time of discharge. -diet: CHF diet, 2gm salt restriction -DVT Ppx:heparin sc - GI Ppx:protonix po. Problem List: 1. CHF (congestive heart failure) 2. Pleural effusion 3. COPD (chronic obstructive pulmonary disease) Pain Ratin Pain Location: none Pain Goal: Remain pain free Pain Plan: N/A Tomorrow's Labs & Rationales: cbc, bep Zhane DEE,Vanessa 05/04/18 1023: Attending MD Review Statement Attending Statement Attending Statement: examined this patient, discuss w/resident/PA/MONEY MARKET DEALER, agreed w/resident/PA/MONEY MARKET DEALER, reviewed EMR data (avail), discussed with nursing, amended to note Attending Assessment/Plan: Patient seen and examined. Lying in bed and not in acute distress. No events on telemetry monitoring overnight. He reports feeling better than presentation but admits to being short of breath. He is on baseline oxygen supplementation. On examination he has diminished breath sounds bilaterally with bibasilar crepitus. She was evaluated by the cardiology service yesterday with recommendations to change the Bumex to the IV route. General appearance: Frail, not in any respiratory distress. HEENT: Anicteric, no pallor, pupils equal and reactive. Neck: Supple with no jugular venous distention. Heart: S1-S2 regular with no audible murmur. Lungs: Diminished breath sounds bilateral lung bases. Bibasilar crepitus. Abdomen: Nondistended with normal bowel sounds. Soft, nontender with no palpable masses. Extremities: No pedal edema. No cyanosis. Skin: Intact Problems: 1. Shortness of breath; multifactorial 2. Bilateral pleural effusions; right greater than left 3. Chronic hypoxic respiratory failure 4. Severe emphysema 5. Severe pulmonary hypertension 6. Coronary disease status post CABG 7. Ischemic cardiomyopathy with reduced ejection fraction 8. Peripheral arterial disease 9. Hypertension 10. Diabetes mellitus 11. Chronic anemia Plan: -Patient would like to be discharged home today. He is currently hemodynamically stable. He is on his baseline oxygen supplementation. He does continue to admit to shortness of breath but wants to go home. Patient has multiple reasons to be short of breath. CT scan shows evidence of advanced COPD. He has severe pulmonary hypertension. He is cardiomyopathic and has chronic moderate-sized pleural effusions. Bumex was changed to IV route by the cardiology service yesterday. He did not have any improvement of his oxygenation status or any significant change of his weight. Follow with the cardiology service for further recommendations regarding diuresis. -Please have nursing staff mobilize the patient today -Repeat CBC in a.m. Please check stool guaiac.
--- NOTE | 2018-05-04 12:17 | PN- Cardiology ---
Subjective Subjective: * No chest discomfort of shortness of breath while in bed. * AV paced rhythm in demand mode * Highly elevated d-dimer without evidence of PE on his CT angiogram * normal troponins * stable anemia Objective Vital Signs and I&Os Vital Signs Date Time Temp Pulse Resp B/P B/P Pulse O2 O2 Flow FiO2 Mean Ox Delivery Rate 05/04 800 Nasal 2.0L Cannula 05/04 0732 63 126/56 05/04 0732 63 126/56 05/04 0731 63 126/56 05/04 0731 63 126/56 05/04 0639 96.3 63 28 126/56 92 Nasal 2.5L Cannula 05/04 0000 Nasal 2.5L Cannula 05/03 2200 98.4 58 18 124/84 97 05/03 2148 70 124/84 05/03 2148 70 124/84 05/03 1521 97.6 69 18 110/68 98 Intake & Output 05/04 1600 05/04 0800 05/04 0000 05/03 1600 05/03 0800 05/03 0000 Intake Total 200 450 120 Output Total 225 250 Balance 200 -225 450 120 -250 Intake, Oral 200 450 120 Output, Urine 225 250 Patient 126 lb 128 lb Weight Physical Exam: General: WD/thin male in NAD; alert and oriented x 3 HEENT: NC/AT, PERRL, EOMI Neck: +ve JVD Heart: RRR with 2/6 systolic murmur Lungs: crackles at right base with decrease air movement bilaterally Extremities: no edema Assessment/Plan Assessment/Plan * This patient has no evidence of an ACS. He does have pleural effusions and crackles. Will review his echocardiogram to assess for any decrease in myocardial function. Continue current dose of Bumex and spironolactone. Change Bumex to 1mg IV BID. Avoid potassium supplementation due to an increased potassium upon initial presentation. Follow BUN, creatinine and potassium. I would also decrease his Gabapentin since this medication is known to promote fluid retention. No change in other pre-admission medications. Continue telemetry? Yes
--- NOTE | 2018-05-04 12:35 | PN- Pulmonary ---
Subjective HPI/Critical Care Issues: Doing ok stable Objective Current Medications: Current Medications Sig/Damon Start time Last Medication Dose Route Stop Time Status Admin Albuterol Sulfate 3 ML Q4P PRN 05/03 0915 AC INH Albuterol Sulfate 2 PUF Q4-6 PRN PRN 05/02 0215 AC 05/03 INH 0226 Aspirin Buffered 81 MG DAILY 05/02 09 AC 05/04 PO 0731 Atorvastatin Calcium 40 MG 1700 05/02 1700 AC 05/03 PO 1705 Bumetanide 1 MG DAILY 05/04 900 AC 05/04 IV 0730 Bumetanide 2 MG DAILY 05/02 1100 DC 05/03 PO 0850 Carvedilol 25 MG BID 05/02 900 AC 05/04 PO 0731 Clopidogrel Bisulfate 75 MG DAILY 05/02 900 AC 05/04 PO 0732 Docusate Sodium 100 MG DAILY NEEDED PRN 05/02 2000 AC PO Ferrous Sulfate 325 MG BID 05/02 1425 AC 05/04 PO 0731 Finasteride 5 MG DAILY 05/02 900 AC 05/04 PO 0731 Gabapentin 300 MG TID 05/03 2100 AC 05/04 PO 0732 Gabapentin 400 MG TID 05/02 09 DC 05/03 PO 1436 Heparin Sodium 5,000 UNIT Q8 05/02 600 AC 05/04 (Porcine) SC 0519 Insulin Aspart 0 TIDAC 05/02 800 AC 05/04 SC 1221 Losartan Potassium 25 MG DAILY 05/02 900 AC 05/04 PO 0731 Omeprazole 40 MG DAILY AC 05/02 700 AC 05/04 PO 0519 Polyethylene Glycol 17 GM DAILY 05/03 1000 AC 05/04 PO 0743 Ranolazine 1,000 MG BID 05/02 900 AC 05/04 PO 0732 Spironolactone 25 MG DAILY 05/02 900 AC 05/04 PO 0731 Tamsulosin HCl 0.4 MG DAILY 05/02 900 AC 05/04 PO 0732 Tiotropium [place] 1 PUF DAILY 05/02 900 AC 05/04 INH 0730 Vital Signs & I&O Last 24 Hrs of Vitals and I&O: Vital Signs Date Time Temp Pulse Resp B/P B/P Pulse O2 O2 Flow FiO2 Mean Ox Delivery Rate 05/04 800 Nasal 2.0L Cannula 05/04 732 63 126/56 07/08 0732 63 126/56 05/04 0731 63 126/56 05/04 0731 63 126/56 05/04 0639 96.3 63 28 126/56 92 Nasal 2.5L Cannula 05/04 0000 Nasal 2.5L Cannula 05/03 2200 98.4 58 18 124/84 97 /07 2148 70 124/84 05/03 2148 70 124/84 05/03 1521 97.6 69 18 110/68 98 Intake & Output 05/04 1600 05/04 0800 05/04 0000 Intake Total 200 Output Total 225 Balance 200 -225 Intake, Oral 200 Output, Urine 225 Patient 126 lb Weight Impression/Plan Impression/Plan Impression/Plan: CT chest IMPRESSION: 1. No evidence for acute or chronic pulmonary embolism. 2. There is a pulmonary hypertension. 3. Parenchymal disease at both bases appears similar favoring chronic rounded atelectasis. 4. Increasing nonspecific mildly enlarged mediastinal lymph nodes. 4. Pleural effusions similar. VTE: negative General Appearance: Thin elderly male, frail appearing, alert and oriented, no acute distress. Head: normal HEENT: Normal Neck: supple, JVP elevated 3 cm at 45, carotid upstrokes normal bilaterally, no masses or thyromegaly Respiratory: chest non-tender, clear to auscultation and percussion bilaterally Cardiovascular: regular rate/rhythm, normal S1, S2, 1-2/6 systolic murmur Abdomen: normal bowel sounds, soft, non-tender Extremities: normal inspection, no edema Vascular: Pulses are 2+ and equal bilaterally Neurologic: Grossly normal/nonfocal Mr. Mejia is a 78-year-old male with past medical history of CAD status post CABG, HFrEF (EF 30-35%, stage 2 diastolic dysfunction), hypertension, lipidemia, peripheral vascular disease, bilateral carotid endarterectomies, diabetes mellitus who presents with shortness of breath. His active issues include * Bilateral pleural effusion which has been present for more than one year, bilateral thoracentesis done does reveal that it's most likely a transudate with low protein. This is due to chf prob * He does have bilateral effusions with lymphocyte predominance in his cell count. Unlikely this is tuberculosis or lymphoma. Flow cytometry is neg for lymphoproliferative disease and adenosine deaminase is low and unlikely tb * Significant cardiomyopathy, low ejection fraction, severe inferior and posterior hypokinesis with pulmonary hypertension * Very severe emphysema by CT scan with previous history of smoking. Patient does not appear to be a CO2 retainer and is oxygenating well * Bilateral lower lobe chronic atelectasis due to large effusions with probable rounded atx * Significant cachexia probably related to severe COPD and chronic heart failure * Severe peripheral vascular disease, multiple surgeries in the past, previous falls * Previous respiratory failure related to systolic heart failure now stable * Previous history of bladder cancer with no clinical evidence suggestive of recurrence, recurrent UTI, diabetes, significant peripheral vascular disease. * Hypertension, hyperlipidemia, previous CABG, previous non-ST segment elevation UT RECOMMENDATION * Diuresis per cardio * Ynuli-ewl-kuvou nebulizer therapy if wheezing now stable * No other active pulm intervention for now * Will follow claudy, pt may need further work up regarding pulm infiltrates when stable, and needs out pt eval when his primary campground attendant (Dr. Maria De Jesus bautista) Get records from [facility] at [facility] to dc soon
[2018-05-04 13:55] VITALS: BP 100/60
--- NOTE | 2018-05-04 19:39 | RADIOLOGY REPORT ---
EXAMINATION: XR PORTABLE CHEST CLINICAL INFORMATION: Bilateral crackles. Question pulmonary edema. COMPARISON: Multiple previous chest imaging studies with the most recent chest x-ray and chest CT of 05/01/2018. TECHNIQUE: Portable frontal view of the chest was obtained. FINDINGS: The cardiomediastinal silhouette is stable. Left-sided ICD/pacemaker is unchanged in configuration with the intact leads terminating in the expected locations of the right atrium, right ventricle and coronary sinus. The sternotomy wires appear intact. Mediastinal surgical clips. Moderate right and small left pleural effusions with associated bibasilar consolidation likely atelectasis unchanged compared to last study. Stable hazy groundglass opacification of the lung parenchyma, appears to be improved compared to previous studies of 05/01/2018. Severe changes of emphysema are noted on the chest CT. Moderate degenerative changes at the bilateral acromioclavicular joints. IMPRESSION: Unchanged bilateral pleural effusions. Improved pulmonary parenchymal haziness suggesting improving pulmonary edema.
[2018-05-04 22:31] VITALS: BP 118/68
[2018-05-05 06:02] VITALS: BP 112/50
--- NOTE | 2018-05-05 07:48 | PN- Housestaff ---
Sonya DEE,Ruth 05/05/18 0748: Subjective Follow-up For: CHF exacerbation Bilateral pleural effusions History of hypertension, coronary artery disease, type 2 diabetes, peripheral artery disease Subjective: Patient seen and examined. Patient has had increased work of breathing during the weekend and today. His respiratory rate is 40 and when breathing, he is noted to grunt. The patient's oxygen requirement is up to 3 L, he takes 2 L at home. Review of Systems Constitutional: Reports: no symptoms. EENTM: Reports: no symptoms. Cardiovascular: Reports: no symptoms. Respiratory: Reports: short of breath. Gastrointestinal: Reports: no symptoms. Genitourinary: Reports: no symptoms. Musculoskeletal: Reports: no symptoms. Skin: Reports: no symptoms. Neurological/Psychological: Reports: no symptoms. Objective Last 24 Hrs of Vital Signs/I&O Vital Signs Date Time Temp Pulse Resp B/P B/P Pulse O2 O2 Flow FiO2 Mean Ox Delivery Rate 05/05 1354 98.1 60 20 100/40 94 Nasal Cannula 05/05 1205 100 Nasal 3.0L Cannula 05/05 0911 59 110/54 05/05 0911 59 110/54 05/05 0911 59 110/54 05/05 0910 59 110/54 05/05 0910 65 110/54 05/05 0800 Nasal 3.0L Cannula 05/05 0602 98.6 59 40 112/50 98 08 2301 Nasal 3.0L Cannula 05/04 2231 99.3 60 40 118/68 98 /08 2053 67 114/54 08 2052 67 114/54 Intake & Output 05/05 1600 05/05 0800 05/05 0000 Intake Total 374 120 120 Output Total 125 425 200 Balance 249 -305 -80 Intake, IV 14 Intake, Oral 360 120 120 Number 1 Bowel Movements Output, Urine 125 425 200 Patient 132 lb Weight Physical Exam General Appearance: Alert, Oriented X3, Cooperative, Mild Distress Skin: No Rashes, No Breakdown, No Significant Lesion Skin Temp/Moisture Exam: Warm/Dry HEENT: Atraumatic, PERRLA, EOMI Neck: Supple, No JVD Cardiovascular: Regular Rate, Normal S1, Normal S2, No Murmurs Lungs: Clear to Auscultation, Normal Air Movement Abdomen: Normal Bowel Sounds, Soft, No Tenderness Neurological: Normal Speech Extremities: No Clubbing, No Cyanosis, No Edema Vascular: Normal Pulses, Pulses Symmetrical Current Medications: Current Medications Sig/Damon Start time Last Medication Dose Route Stop Time Status Admin Albuterol Sulfate 3 ML Q4P PRN 05/03 0915 AC 05/04 INH 1829 Albuterol Sulfate 2 PUF Q4-6 PRN PRN 05/02 0215 AC 05/03 INH 0226 Aspirin Buffered 81 MG DAILY 05/02 900 AC 05/05 PO 0911 Atorvastatin Calcium 40 MG 1700 05/02 1700 AC 05/05 PO 1726 Bumetanide 1 MG BID 05/04 2100 AC 05/05 IV 0911 Carvedilol 25 MG BID 05/02 900 AC 05/05 PO 0911 Clopidogrel Bisulfate 75 MG DAILY 05/02 900 AC 05/05 PO 0911 Docusate Sodium 100 MG .STK-MED ONE 05/04 2115 DC PO 05/04 2116 Docusate Sodium 100 MG DAILY NEEDED PRN 05/02 2000 AC 05/04 PO 211 Ferrous Sulfate 325 MG BID 05/02 1425 AC 05/05 PO 0911 Finasteride 5 MG DAILY 05/02 900 AC 05/05 PO 0911 Gabapentin 100 MG TID 05/04 1400 AC 05/05 PO 1313 Heparin Sodium 5,000 UNIT Q8 05/02 600 AC 05/05 (Porcine) SC 1313 Insulin Aspart 0 TIDAC 05/02 800 AC 05/05 SC 1733 Losartan Potassium 25 MG DAILY 05/02 900 AC 05/05 PO 0910 Omeprazole 40 MG DAILY AC 05/02 700 AC 05/05 PO 0526 Polyethylene Glycol 17 GM DAILY 05/03 1000 AC 05/05 PO 0909 Ranolazine 1,000 MG BID 05/02 900 AC 05/05 PO 0911 Spironolactone 25 MG DAILY 05/02 900 AC 05/05 PO 0909 Tamsulosin HCl 0.4 MG DAILY 05/02 900 AC 05/05 PO 0911 Tiotropium [place] 1 PUF DAILY 05/02 900 AC 05/05 INH 0909 Last 24 Hrs of Lab/Evens Results Last 24 Hrs of Labs/Mics: Laboratory Tests 05/05/18 0643: Anion Gap 10, Estimated GFR > 60, BUN/Creatinine Ratio 22.9, CBC w Diff NO MAN DIFF REQ, RBC 3.52 L, MCV 74.3 L, MCH 23.7 L, MCHC 31.9 L, RDW 18.4 H, MPV 8.1, Gran % 82.4 H, Lymphocytes % 6.7 L, Monocytes % 9.5 H, Eosinophils % 1.1 , Basophils % 0.3, Absolute Granulocytes 6.3, Absolute Lymphocytes 0.5 L, Absolute Monocytes 0.7 H, Absolute Eosinophils 0.1, Absolute Basophils 0 Assessment/Plan Assessment: Ms Mejia is an 78 year old woman w/ a PMHx of HTN, CAD s/p CABG, ischemic cardiomyopathy with HFrEF on 2L O2, bilateral carotid endarterectomy, bladder cancer s/p intravesical treatment, recurrent UTI, T2DM, PAD s/p left femoral angioplasty c/b pseudoaneurysm with subsequent repair was brought in with a chief concern of progressive lethargy and fatigue, decreased p.o. intake. No fever, chills, chest pain, abdominal pain nausea vomiting. No dizziness, lightheadedness or falls lately. Reported occassional dyspnea upon exertion, and has been compliant w/ his medications. Reports occasional indiscretion to salt intake, but largely compliant. Has been taking his Bumetanide regularly, and there has been no change in his urine output or has any pedal edema. Checks his weight regularly, and is very cognizant of his weight gain. He follows up with Dr. Jones regularly. At the time of admission-temperature 98.2, pulse rate 63, respiration 22, blood pressure 1 1 6/56, pulse ox 99% on 2 L. Pertinent lab findings- WBC 8.5 (84% granulocytes),, hemoglobin 8.9 (baseline around 9), MCV 74.2, platelets 339. Sodium 138, potassium 5.0, chloride 97, bicarb 29, anion gap 12 BUN 25, creatinine 0.7, glucose 126, d Dimer 1775 ProBNP 7780. Urinalysis clear. Chest f-jch-xyevityl increasing bilateral pleural effusions. Persistent pulmonary edema. CTA chest-1. No evidence for acute or chronic pulmonary embolism.2. There is a pulmonary hypertension. 3. Parenchymal disease at both bases appears similar favoring chronic roundedatelectasis.4. Increasing nonspecific mildly enlarged mediastinal lymph nodes.4. Pleural effusions similar.VTE: negative Echo 11/14- Normal size left ventricle. Borderline left ventricular hypertrophy. Left ventricular ejection fraction is estimated at 35-40 %. Severe inferior and posterior hypokinesis. Mild left atrial dilatation. Mild mitral regurgitation. Mild tricuspid regurgitation. Right ventricular systolic pressure estimated to be elevated at 58 mmHg. Mild pulmonic regurgitation. Left pleural effusion is seen. Problem list: 1. Cardiogenic pulm edema 2. Ischemic CM w/ HFrEF: We are treating the patient for his chronic systolic and diastolic CHF EF 30-35%, stage 2 diastolic dysfunction) 3. h/o CAD s/p CABG 4. s/p AICD 5. Microcytic anemia 6. b/l Pleural effusion chronic Etiology in this case is likely volume overload is which is a rapidly progressive failure state given a possible precipitating event medication noncompliance or worsening clinical condition on chronic systolic+diastolic right and left-sided heart failure. There is no evidence of overt interstitial edema. There is evidence of underlying pulmonary disease with lymphadenopathy. Most likely this is CHF with contribution from another underlying pulmonary issue. Patient is -800 cc of urine yesterday. He is on spironolactone and Bumex. Patient has been having increased work of breathing overnight and into today. He is requiring 3 L which is more than his 2 L that he takes at home. Repeat chest x-ray done over the weekend shows improving pulmonary edema but maintained pleural effusions. Admission CTA done for pulmonary embolism, negative for PE but parenchymal disease at both bases appears similar favoring chronic rounded atelectasis. Plan: Plan The patient is placed in observation on the telemetry unit for closer monitoring ACS ruled out with EKGs and troponins Echo returned today and shows moderately reduced global left ventricular systolic function. Moderately abnormal left ventricular ejection fraction estimated at 30-35% hypokinetic inferior wall and hypokinetic posterior wall. Additionally patient has severe pulmonary hypertension. We will continue to monitor weight, intakes and outputs and daily weights. Continue good diuresis with Bumex 2 mg and spironolactone 25 mg daily We have decrease gabapentin from 300 mg twice daily to 100 mg 3 times daily due to known increase in fluid retention on gabapentin. Appreciate cardiology and pulmonology consults. As per cardiology we will consider therapeutic right thoracentesis if symptoms continue or worsen but for now no further workup regarding the infiltrates as per pulmonary consult. Bilateral large pleural effusion which has been present for more than one year, bilateral thoracentesis done previously does reveal that it's most likely a transudate with low protein i.e. CHF Normal TSHr Supplemental oxygen as needed and TRC nebs Consider NIPPV to reduce work of breathing, improve oxygenation, if worse. CHF diet, 2gm salt restriction For patient's one week history of dysphagia we had swallow see him who suggested mechanical ground and thin liquids. Patient presented to ER with complaints of weakness. Physical therapy is suggesting discharge to home with PT services at the time of discharge. Patient usually ambulates with cane or walker. B12 and folate levels normal Iron studies done showed low iron, normal ferritin, normal TIBC and iron supplementation was started. Follow stool guaiac DVT Ppx- heparin sc GI Ppx- protonix po. Problem List: 1. Cardiogenic pulmonary edema 2. Pleural effusion Pain Ratin Pain Location: na Pain Goal: Remain pain free Pain Plan: na Tomorrow's Labs & Rationales: Malcolm Liriano 05/05/18 1119: Attending MD Review Statement Attending Statement Attending MD Statement: examined this patient, discuss w/resident/PA/RESIDENTIAL FRAMING CARPENTER, agreed w/resident/PA/RESIDENTIAL FRAMING CARPENTER, reviewed EMR data (avail), discussed with nursing, discussed with case mgmt Attending Assessment/Plan: acute on crhonic CHF systolic with severe pulm htn and rt sided heart failure. Last pulm pressures from echo in 10/2017 was 57mm and also showed inferior and posterior hpyokinesis. Will cont on bumex 1mg iv bid . will f/u on cardio recommendations. Pt on exam appears in mild resp distress but pt denies any feeling of sob or chest pain. Anemia of chornic disease- hb stable. d/w pt the care plan.
[2018-05-05 08:18] LABS: ABSOLUTE BASOPHIL COUNT 0 /CUMM (0.0-0.2); ABSOLUTE EOSINOPHIL COUNT 0.1 /CUMM (0.0-0.7); ABSOLUTE GRANULOCYTE CT 6.3 /CUMM (1.4-6.5); ABSOLUTE LYMPH COUNT 0.5 /CUMM (1.2-3.4); ABSOLUTE MONOCYTE COUNT 0.7 /CUMM (0.10-0.60); BASOPHIL % 0.3 % (0.0-2.0); EOSINOPHIL % 1.1 % (0-5); GRANULOCYTE % 82.4 % (42.2-75.2); HEMATOCRIT 26.2 % (42-52); MEAN CORPUSCULAR HGB 23.7 PG (27.0-31.0); MEAN CORPUSCULAR HGB CONC 31.9 G/DL (33.0-37.0); MEAN CORPUSCULAR VOLUME 74.3 FL (80.0-94.0); MEAN PLATELET VOLUME 8.1 FL (7.4-10.4); PLATELET COUNT 289 /CUMM (130-400); RBC DISTRIBUTION WIDTH 18.4 % (11.5-14.5); RED BLOOD CELL CT 3.52 /CUMM (4.70-6.10); WHITE BLOOD CELL COUNT 7.7 /CUMM (4.8-10.8)
[2018-05-05 09:10] VITALS: BP 110/54
--- NOTE | 2018-05-05 11:35 | PN- Cardiology ---
Subjective Subjective: No chest pain. Shortness of breath improving. No diaphoresis. No palpitations. No nausea or vomiting. Objective Vital Signs and I&Os Vital Signs Date Time Temp Pulse Resp B/P B/P Pulse O2 O2 Flow FiO2 Mean Ox Delivery Rate 05/05 0911 59 110/54 05/05 0911 59 110/54 05/05 0911 59 110/54 05/05 0910 59 110/54 05/05 0910 65 110/54 05/05 08 Nasal 3.0L Cannula 05/05 0602 98.6 59 40 112/50 98 05/04 2301 Nasal 3.0L Cannula 05/04 2231 99.3 60 40 118/68 98 05/04 2053 67 114/54 05/04 2052 67 114/54 05/04 1834 97 Nasal 3.0L Cannula 05/04 1600 Nasal 3.0L Cannula 05/04 1447 Nasal 2.0L Cannula 05/04 1355 97.5 63 20 100/60 93 05/04 1130 92 Nasal 3.0L Cannula Intake & Output 05/05 0000 05/04 1600 05/04 0000 Intake Total 120 120 200 Output Total 425 200 600 225 Balance -305 -80 -600 200 -225 Intake, Oral 120 120 200 Number 0 Bowel Movements Output, Urine 425 200 600 225 Patient 132 lb 125 lb 126 lb Weight Physical Exam: Gen: NAD HEENT: normal Lungs: Bilateral rales, normal resp. effort Heart: RRR, S1, S2, 2/6 systolic murmur Abdomen: Soft, nontender, no masses Extremities: No clubbing, cyanosis, or edema. Neuro: Alert and oriented x 3, cranial nerves intact Current Medications: Current Medications Sig/Damon Start time Last Medication Dose Route Stop Time Status Admin Albuterol Sulfate 3 ML Q4P PRN 05/03 0915 AC 05/04 INH 1829 Albuterol Sulfate 2 PUF Q4-6 PRN PRN 05/02 0215 AC 05/03 INH 0226 Aspirin Buffered 81 MG DAILY 05/02 900 AC 05/05 PO 0911 Atorvastatin Calcium 40 MG 1700 05/02 1700 AC 05/04 PO 1705 Bumetanide 1 MG BID 05/04 2100 AC 05/05 IV 0911 Bumetanide 1 MG DAILY 05/04 900 DC 05/04 IV 0730 Carvedilol 25 MG BID 05/02 900 AC 05/05 PO 0911 Clopidogrel Bisulfate 75 MG DAILY 05/02 900 AC 05/05 PO 0911 Docusate Sodium 100 MG .STK-MED ONE 05/04 2115 DC PO 05/04 2116 Docusate Sodium 100 MG DAILY NEEDED PRN 05/02 2000 AC 05/04 PO 211 Ferrous Sulfate 325 MG BID 05/02 1425 AC 05/05 PO 0911 Finasteride 5 MG DAILY 05/02 900 AC 05/05 PO 0911 Gabapentin 100 MG TID 05/04 1400 AC 05/05 PO 0911 Gabapentin 300 MG TID 05/03 2100 DC 05/04 PO 0732 Heparin Sodium 5,000 UNIT Q8 05/02 600 AC 05/05 (Porcine) SC 0525 Insulin Aspart 0 TIDAC 05/02 800 AC 05/04 SC 1221 Losartan Potassium 25 MG DAILY 05/02 900 AC 05/05 PO 0910 Omeprazole 40 MG DAILY AC 05/02 700 AC 05/05 PO 0526 Polyethylene Glycol 17 GM DAILY 05/03 1000 AC 05/05 PO 0909 Ranolazine 1,000 MG BID 05/02 900 AC 05/05 PO 0911 Spironolactone 25 MG DAILY 05/02 900 AC 05/05 PO 0909 Tamsulosin HCl 0.4 MG DAILY 05/02 900 AC 05/05 PO 0911 Tiotropium [place] 1 PUF DAILY 05/02 900 AC 05/05 INH 0909 Results Last 48 Hrs of Labs/Mics: Laboratory Tests 05/05/18 0643: Anion Gap 10, Estimated GFR > 60, BUN/Creatinine Ratio 22.9, CBC w Diff NO MAN DIFF REQ, RBC 3.52 L, MCV 74.3 L, MCH 23.7 L, MCHC 31.9 L, RDW 18.4 H, MPV 8.1, Gran % 82.4 H, Lymphocytes % 6.7 L, Monocytes % 9.5 H, Eosinophils % 1.1 , Basophils % 0.3, Absolute Granulocytes 6.3, Absolute Lymphocytes 0.5 L, Absolute Monocytes 0.7 H, Absolute Eosinophils 0.1, Absolute Basophils 0 Assessment/Plan Assessment/Plan Assessment: 1. CAD, status post CABG 2. Ischemic cardia myopathy 3. Hypertension 4. Acute on chronic systolic heart failure Plan: * Continue IV bumetanide * Follow input and output with daily weights * Check basic metabolic profile daily * Continue other cardiac medications Continue telemetry? Yes
--- NOTE | 2018-05-05 13:46 | PN- Pulmonary ---
Subjective HPI/Critical Care Issues: Sleeping early this am IMproving Objective Current Medications: Current Medications Sig/Damon Start time Last Medication Dose Route Stop Time Status Admin Albuterol Sulfate 3 ML Q4P PRN 05/03 0915 AC 05/04 INH 1829 Albuterol Sulfate 2 PUF Q4-6 PRN PRN 05/02 0215 AC 05/03 INH 0226 Aspirin Buffered 81 MG DAILY 05/02 900 AC 05/05 PO 0911 Atorvastatin Calcium 40 MG 1700 05/02 1700 AC 05/04 PO 1705 Bumetanide 1 MG BID 05/04 2100 AC 05/05 IV 0911 Carvedilol 25 MG BID 05/02 900 AC 05/05 PO 0911 Clopidogrel Bisulfate 75 MG DAILY 05/02 900 AC 05/05 PO 0911 Docusate Sodium 100 MG .STK-MED ONE 05/04 2115 DC PO 05/04 211 Docusate Sodium 100 MG DAILY NEEDED PRN 05/02 2000 AC 05/04 PO 211 Ferrous Sulfate 325 MG BID 05/02 1425 AC 05/05 PO 0911 Finasteride 5 MG DAILY 05/02 900 AC 05/05 PO 0911 Gabapentin 100 MG TID 05/04 1400 AC 05/05 PO 1313 Heparin Sodium 5,000 UNIT Q8 05/02 600 AC 05/05 (Porcine) SC 1313 Insulin Aspart 0 TIDAC 05/02 800 AC 05/05 SC 1313 Losartan Potassium 25 MG DAILY 05/02 900 AC 05/05 PO 0910 Omeprazole 40 MG DAILY AC 05/02 700 AC 05/05 PO 0526 Polyethylene Glycol 17 GM DAILY 05/03 1000 AC 05/05 PO 0909 Ranolazine 1,000 MG BID 05/02 900 AC 05/05 PO 0911 Spironolactone 25 MG DAILY 05/02 900 AC 05/05 PO 0909 Tamsulosin HCl 0.4 MG DAILY 05/02 900 AC 05/05 PO 0911 Tiotropium [place] 1 PUF DAILY 05/02 900 AC 05/05 INH 0909 Vital Signs & I&O Last 24 Hrs of Vitals and I&O: Vital Signs Date Time Temp Pulse Resp B/P B/P Pulse O2 O2 Flow FiO2 Mean Ox Delivery Rate 05/05 1205 100 Nasal 3.0L Cannula 05/05 911 59 110/54 07/09 0911 59 110/54 05/05 0911 59 110/54 05/05 0910 59 110/54 05/05 0910 65 110/54 05/05 0800 Nasal 3.0L Cannula 05/05 0602 98.6 59 40 112/50 98 05/04 2301 Nasal 3.0L Cannula 05/04 2231 99.3 60 40 118/68 98 05/04 2053 67 114/54 05/04 2052 67 114/54 05/04 1834 97 Nasal 3.0L Cannula 05/04 1600 Nasal 3.0L Cannula 05/04 1447 Nasal 2.0L Cannula 05/04 1355 97.5 63 20 100/60 93 Intake & Output 05/05 1600 05/05 0805/05 0000 Intake Total 120 120 Output Total 425 200 Balance -305 -80 Intake, Oral 120 120 Output, Urine 425 200 Patient 132 lb Weight Laboratory Tests 05/05 643 Chemistry Sodium (137 - 145 mmol/L) 138 Potassium (3.5 - 5.1 mmol/L) 4.7 Chloride (98 - 107 mmol/L) 96 L Carbon Dioxide (22 - 30 mmol/L) 32 H Anion Gap (5 - 16) 10 BUN (9 - 20 mg/dL) 16 Creatinine (0.7 - 1.2 mg/dL) 0.7 Estimated GFR (>60 ml/min) > 60 BUN/Creatinine Ratio (7 - 25 %) 22.9 Hematology CBC w Diff NO MAN DIFF REQ WBC (4.8 - 10.8 /CUMM) 7.7 RBC (4.70 - 6.10 /CUMM) 3.52 L Hgb (14.0 - 18.0 G/DL) 8.4 L Hct (42 - 52 %) 26.2 L MCV (80.0 - 94.0 FL) 74.3 L MCH (27.0 - 31.0 PG) 23.7 L MCHC (33.0 - 37.0 G/DL) 31.9 L RDW (11.5 - 14.5 %) 18.4 H Plt Count (130 - 400 /CUMM) 289 MPV (7.4 - 10.4 FL) 8.1 Gran % (42.2 - 75.2 %) 82.4 H Lymphocytes % (20.5 - 51.1 %) 6.7 L Monocytes % (1.7 - 9.3 %) 9.5 H Eosinophils % (0 - 5 %) 1.1 Basophils % (0.0 - 2.0 %) 0.3 Absolute Granulocytes (1.4 - 6.5 /CUMM) 6.3 Absolute Lymphocytes (1.2 - 3.4 /CUMM) 0.5 L Absolute Monocytes (0.10 - 0.60 /CUMM) 0.7 H Absolute Eosinophils (0.0 - 0.7 /CUMM) 0.1 Absolute Basophils (0.0 - 0.2 /CUMM) 0 Impression/Plan Impression/Plan Impression/Plan: CT chest IMPRESSION: 1. No evidence for acute or chronic pulmonary embolism. 2. There is a pulmonary hypertension. 3. Parenchymal disease at both bases appears similar favoring chronic rounded atelectasis. 4. Increasing nonspecific mildly enlarged mediastinal lymph nodes. 4. Pleural effusions similar. VTE: negative General Appearance: Thin elderly male, frail appearing, alert and oriented, no acute distress. Head: normal HEENT: Normal Neck: supple, JVP elevated 3 cm at 45, carotid upstrokes normal bilaterally, no masses or thyromegaly Respiratory: chest non-tender, clear to auscultation and percussion bilaterally Cardiovascular: regular rate/rhythm, normal S1, S2, 1-2/6 systolic murmur Abdomen: normal bowel sounds, soft, non-tender Extremities: normal inspection, no edema Vascular: Pulses are 2+ and equal bilaterally Neurologic: Grossly normal/nonfocal Mr. Mejia is a 78-year-old male with past medical history of CAD status post CABG, HFrEF (EF 30-35%, stage 2 diastolic dysfunction), hypertension, lipidemia, peripheral vascular disease, bilateral carotid endarterectomies, diabetes mellitus who presents with shortness of breath. His active issues include * Bilateral pleural effusion which has been present for more than one year, bilateral thoracentesis done does reveal that it's most likely a transudate with low protein. This is due to chf prob * He does have bilateral effusions with lymphocyte predominance in his cell count. Unlikely this is tuberculosis or lymphoma. Flow cytometry is neg for lymphoproliferative disease and adenosine deaminase is low and unlikely tb * Significant cardiomyopathy, low ejection fraction, severe inferior and posterior hypokinesis with pulmonary hypertension * Very severe emphysema by CT scan with previous history of smoking. Patient does not appear to be a CO2 retainer and is oxygenating well * Bilateral lower lobe chronic atelectasis due to large effusions with probable rounded atx * Significant cachexia probably related to severe COPD and chronic heart failure * Severe peripheral vascular disease, multiple surgeries in the past, previous falls * Previous respiratory failure related to systolic heart failure now stable * Previous history of bladder cancer with no clinical evidence suggestive of recurrence, recurrent UTI, diabetes, significant peripheral vascular disease. * Hypertension, hyperlipidemia, previous CABG, previous non-ST segment elevation MS RECOMMENDATION * Diuresis per cardio * Nebs prn * No other active pulm intervention for now * Will follow claudy, pt may need further work up regarding pulm infiltrates when stable, and needs out pt eval when his primary story teller (Dr. Pretty returns) Will sign off thanks Ok to dc soon
[2018-05-05 13:54] VITALS: BP 100/40
--- NOTE | 2018-05-05 15:03 | ECHOCARDIOGRAM REPORT ---
CAITY BELL Age: 78 : 1940 Gender: M Exam Date: 05/03/2018 12:48 Exam Location: [address] Ht (in): 69 Wt (lb): 135 BSA: 1.72 BP: 135 / 69 Ordering Physician: Basil Cotto MD Referring Physician: Basil Cotto MD Technologist: Luiza Evans [facility] Room Number: 183 Indications: Rhythm: Sinus Technical Quality: Fair FINDINGS Left Ventricle Left ventricular cavity size at the upper limits of normal. Moderately reduced global left ventricular systolic function. Moderately abnormal left ventricular ejection fraction estimated at 30-35%. Hypokinetic inferior wall. Hypokinetic posterior wall. Right Ventricle Right ventricular dilatation. Right Atrium Right atrial dilatation. Left Atrium Moderate to severe left atrial dilatation. Mitral Valve Mitral valve thickened. Mild mitral regurgitation. Aortic Valve Trileaflet aortic valve. Diffuse thickening (sclerosis) of the aortic valve cusps without reduced excursion. No aortic stenosis. Trace aortic regurgitation. Tricuspid Valve Tricuspid valve not well visualized, grossly normal. Moderate tricuspid regurgitation. Right ventricular systolic pressure estimated to be elevated at 70 mmHg. Pulmonic Valve Pulmonic valve not well visualized, grossly normal. Trace to mild pulmonic regurgitation. Pericardium No pericardial effusion. Left pleural effusion. Great Vessels Aortic root and proximal ascending aorta not well visualized, grossly normal. CONCLUSIONS 1. Mild to moderate aortic sclerosis is present with minimal aortic insufficiency. 2. Mitral leaflet thickening is present with mild mitral insufficiency and moderate to severe left atrial enlargement. 3. There is no significant pericardial fluid present 4. A left pleural effusion is present. 5. The left ventricular chamber size is upper normal witih global hypokinesia that is much worse in the inferoposterior / inferolateral segments with an ejection fraction of approximately 35%. 6. Enlargement of the right heart chambers is present with tricuspid insufficiency that is at least moderate in severity with minimal to mild pulmonic insufficiency and pulmonary hypertension with an estimated RV systolic pressure of at least 70 mmHg. 7. Pacemaker wires are present in the right heart chambers. Marcus Jones M.D. (Electronically Signed) Final Date: 05 May 2018 15:03 MEASUREMENTS (Male / Female) Normal Values 2D ECHO LV Diastolic Diameter PLAX 5.5 cm 4.2 - 5.9 / 3.9 - 5.3 cm LV Systolic Diameter PLAX 5.1 cm 2.1 - 4.0 cm LV Fractional Shortening PLAX 7.3 % 25 - 46 % LV Ejection Fraction 2D Teich 16.0 % IVS Diastolic Thickness 0.9 cm LVPW Diastolic Thickness 0.8 cm LV Relative Wall Thickness 0.3 LVOT Diameter 1.9 cm Aortic Root Diameter 2.7 cm LA Systolic Diameter LX 4.7 cm 3.0 - 4.0 / 2.7 - 3.8 cm LV Ejection Fraction MOD BP 38.3 % >= 55 % LV Diastolic Length 4C 9.5 cm 6.9 - 10.3 cm LV Diastolic Area 4C 43.8 cm LV Diastolic Volume MOD 4C 166.0 cm LV Ejection Fraction MOD 4C 38.6 % LV Stroke Volume MOD 4C 64.0 cm LV Systolic Length 4C 8.7 cm LV Systolic Area 4C 32.5 cm LV Systolic Volume MOD 4C 102.0 cm LV Ejection Fraction MOD 2C 39.2 % LV Diastolic Volume 4C AL 171.1 cm 85 - 139 / 69 - 109 cm LV Systolic Volume 4C AL 103.7 cm LV Ejection Fraction 4C AL 39.4 % LV Stroke Volume 4C AL 67.4 cm LV Ejection Fraction 2C AL 42.1 % LA Volume 120.0 cm 18 - 58 / 22 - 52 cm DOPPLER AV Peak Velocity 163.0 cm/s AV Peak Gradient 10.6 mmHg LVOT Peak Velocity 95.3 cm/s LVOT Peak Gradient 3.6 mmHg AV Area Cont Eq pk 1.7 cm Mitral E Point Velocity 130.0 cm/s Mitral A Point Velocity 44.4 cm/s Mitral E to A Ratio 2.9 MV Deceleration Time 539.0 ms TR Peak Velocity 456.0 cm/s TR Peak Gradient 83.2 mmHg PV Peak Velocity 115.0 cm/s PV Peak Gradient 5.3 mmHg LV E' Lateral Velocity 9.4 cm/s Mitral E to LV E' Lateral Ratio 13.9 LV E' Septal Velocity 7.3 cm/s Mitral E to LV E' Septal Ratio 17.8
[2018-05-05 22:56] VITALS: BP 120/62
[2018-05-06 06:57] VITALS: BP 128/70
--- NOTE | 2018-05-06 07:45 | PN- Housestaff ---
Sonya DEE,Ruth 05/06/18 0745: Subjective Follow-up For: CHF exacerbation Subjective: Patient seen and examined. He has no complaints. He has stable vitalS and is on 2 L of oxygen during interview. Patient is very eager to be discharged. He appears to be breathing a lot easier today than yesterday and his respiratory rate is 18 down from 40 yesterday. He is no longer grunting when he breathes. Review of Systems Constitutional: Reports: no symptoms. Cardiovascular: Reports: no symptoms. Respiratory: Reports: no symptoms. Gastrointestinal: Reports: no symptoms. Genitourinary: Reports: no symptoms. Neurological/Psychological: Reports: no symptoms. Objective Last 24 Hrs of Vital Signs/I&O Vital Signs Date Time Temp Pulse Resp B/P B/P Pulse O2 O2 Flow FiO2 Mean Ox Delivery Rate 05/06 1024 93 Nasal 3.0L Cannula 05/06 1016 76 111/48 05/06 1016 76 111/48 05/06 1015 76 111/48 05/06 1014 76 111/48 05/06 0800 93 Nasal 3.0L Cannula 05/06 0657 97.3 76 18 128/70 98 Nasal Cannula 05/06 0000 96 Nasal 3.0L Cannula 05/05 2256 97.8 65 20 120/62 95 05/05 2050 60 100/40 05/05 2046 60 100/40 Intake & Output 05/06 1600 05/06 0800 05/06 0000 Intake Total 300 250 Output Total 375 Balance 300 -125 Intake, Oral 300 250 Output, Urine 375 Patient 132 lb Weight Physical Exam General Appearance: Alert, Oriented X3, Cooperative, No Acute Distress Skin: No Rashes Skin Temp/Moisture Exam: Warm/Dry HEENT: Atraumatic, PERRLA, EOMI, Mucous Membr. moist/pink Cardiovascular: Regular Rate, Normal S1, Normal S2, No Murmurs Lungs: Clear to Auscultation, Normal Air Movement Abdomen: Normal Bowel Sounds, Soft, No Tenderness Neurological: Normal Speech Extremities: No Clubbing, No Cyanosis, No Edema, Normal Pulses Vascular: Normal Pulses, Pulses Symmetrical Current Medications: Current Medications Sig/Damon Start time Last Medication Dose Route Stop Time Status Admin Albuterol Sulfate 3 ML Q4P PRN 05/03 0915 AC 05/04 INH 1829 Albuterol Sulfate 2 PUF Q4-6 PRN PRN 05/02 0215 AC 05/03 INH 0226 Aspirin Buffered 81 MG DAILY 05/02 09 AC 05/06 PO 1014 Atorvastatin Calcium 40 MG 1700 05/02 1700 AC 05/05 PO 1726 Bumetanide 1 MG BID 05/04 2100 AC 05/06 IV 1016 Carvedilol 25 MG BID 05/02 09 AC 05/06 PO 1016 Clopidogrel Bisulfate 75 MG DAILY 05/02 09 AC 05/06 PO 1014 Docusate Sodium 100 MG DAILY NEEDED PRN 05/02 2000 AC 05/04 PO 2116 Ferrous Sulfate 325 MG BID 05/02 1425 AC 05/06 PO 1014 Finasteride 5 MG DAILY 05/02 09 AC 05/06 PO 1014 Gabapentin 100 MG TID 05/04 1400 AC 05/06 PO 1351 Heparin Sodium 5,000 UNIT Q8 05/02 06 AC 05/06 (Porcine) SC 0551 Insulin Aspart 0 TIDAC 05/02 800 AC 05/06 SC 1237 Losartan Potassium 25 MG DAILY 05/02 09 AC 05/06 PO 1016 Omeprazole 40 MG DAILY AC 05/02 07 AC 05/06 PO 0551 Polyethylene Glycol 17 GM DAILY 05/03 1000 AC 05/06 PO 1014 Ranolazine 1,000 MG BID 05/02 09 AC 05/06 PO 1014 Spironolactone 25 MG DAILY 05/02 09 AC 05/06 PO 1015 Tamsulosin HCl 0.4 MG DAILY 05/02 09 AC 05/06 PO 1015 Tiotropium [place] 1 PUF DAILY 05/02 09 AC 05/06 INH 1014 Last 24 Hrs of Lab/Evens Results Last 24 Hrs of Labs/Mics: Laboratory Tests 05/06/18 0633: Anion Gap 9, Estimated GFR > 60, BUN/Creatinine Ratio 20.0 Assessment/Plan Assessment: Mr Mejia is an 78 year old man w/ a PMHx of HTN, CAD s/p CABG, ischemic cardiomyopathy with HFrEF on 2L O2, bilateral carotid endarterectomy, bladder cancer s/p intravesical treatment, recurrent UTI, T2DM, PAD s/p left femoral angioplasty c/b pseudoaneurysm with subsequent repair was brought in with a chief concern of progressive lethargy and fatigue, decreased p.o. intake. No fever, chills, chest pain, abdominal pain, nausea vomiting. No dizziness, lightheadedness or falls lately. Reported occassional dyspnea upon exertion, and has been compliant w/ his medications. Reports occasional indiscretion to salt intake, but largely compliant. Has been taking his Bumetanide regularly, and there has been no change in his urine output or has any pedal edema. Checks his weight regularly, and is very cognizant of his weight gain. He follows up with his wireline operator regularly. At the time of admission-temperature 98.2, pulse rate 63, respiration 22, blood pressure 116/56, pulse ox 99% on 2 L. Pertinent lab findings- WBC 8.5 (84% granulocytes),, hemoglobin 8.9 (baseline around 9), MCV 74.2, platelets 339. Sodium 138, potassium 5.0, chloride 97, bicarb 29, anion gap 12 BUN 25, creatinine 0.7, glucose 126, d Dimer 1775 ProBNP 7780. Urinalysis clear. Chest [id number] increasing bilateral pleural effusions. Persistent pulmonary edema. CTA chest-1. No evidence for acute or chronic pulmonary embolism.2. There is a pulmonary hypertension. 3. Parenchymal disease at both bases appears similar favoring chronic roundedatelectasis.4. Increasing nonspecific mildly enlarged mediastinal lymph nodes.4. Pleural effusions similar.VTE: negative Echo 11/14- Normal size left ventricle. Borderline left ventricular hypertrophy. Left ventricular ejection fraction is estimated at 35-40 %. Severe inferior and posterior hypokinesis. Mild left atrial dilatation. Mild mitral regurgitation. Mild tricuspid regurgitation. Right ventricular systolic pressure estimated to be elevated at 58 mmHg. Mild pulmonic regurgitation. Left pleural effusion is seen. Problem list: 1. Cardiogenic pulm edema 2. Ischemic CM w/ HFrEF: We are treating the patient for his chronic systolic and diastolic CHF EF 30-35%, stage 2 diastolic dysfunction) 3. h/o CAD s/p CABG 4. s/p AICD 5. Microcytic anemia 6. b/l Pleural effusion chronic Etiology in this case is likely volume overload is which is a rapidly progressive failure state given a possible precipitating event, medication noncompliance, or worsening clinical condition on chronic systolic+diastolic right and left-sided heart failure. There is no evidence of overt interstitial edema. There is evidence of underlying pulmonary disease with lymphadenopathy. Most likely this is CHF with contribution from another underlying pulmonary issue. Patient is -550 cc of urine yesterday. He is on spironolactone and Bumex. Patient was having increased work of breathing yesterday but today has greatly improved. Repeat chest x-ray done over the weekend shows improving pulmonary edema but maintained pleural effusions. Admission CTA done for pulmonary embolism, negative for PE but parenchymal disease at both bases appears similar favoring chronic rounded atelectasis. Plan The patient is placed in observation on the telemetry unit for closer monitoring. Today he is stable for discharge. ACS ruled out with EKGs and troponins Echo returned today and shows moderately reduced global left ventricular systolic function. Moderately abnormal left ventricular ejection fraction estimated at 30-35% hypokinetic inferior wall and hypokinetic posterior wall. Additionally patient has severe pulmonary hypertension. We will continue to monitor weight, intakes and outputs and daily weights. Continue good diuresis with Bumex 2 mg and spironolactone [address] Lund, wireline operator, we will discharge the patient on 1 mg of Bumex by mouth twice a day and he can continue his spironolactone 25 mg daily. We have decreased gabapentin from 400 mg twice daily to 100 mg 3 times daily due to known increase in fluid retention on gabapentin. Additionally this medication can cause increased lethargy which patient was reportedly experiencing over the weekend and at home prior to admission. Appreciate cardiology and pulmonology consults. As per cardiology we will consider therapeutic right thoracentesis if symptoms continue or worsen but for now no further workup regarding the infiltrates as per pulmonary consult. Bilateral large pleural effusion which has been present for more than one year, bilateral thoracentesis done previously does reveal that it's most likely a transudate with low protein i.e. CHF Normal TSHr Supplemental oxygen as needed and TRC nebs Consider NIPPV to reduce work of breathing, improve oxygenation, if worse. CHF diet, 2gm salt restriction For patient's one week history of dysphagia we had swallow see him who suggested mechanical ground and thin liquids. Patient presented to ER with complaints of weakness. Physical therapy is suggesting discharge to home with PT services at the time of discharge. Patient usually ambulates with cane or walker. B12 and folate levels normal Iron studies done showed low iron, normal ferritin, normal TIBC and iron supplementation was started. continue outpatient. Follow stool guaiac DVT Ppx- heparin sc GI Ppx- protonix po. Problem List: 1. Pleural effusion 2. Cardiogenic pulmonary edema Pain Ratin Pain Location: NA Pain Goal: Remain pain free Pain Plan: NA Tomorrow's Labs & Rationales: LEON WaiteMalcolm curry 05/06/18 1256: Attending MD Review Statement Attending Statement Attending MD Statement: examined this patient, discuss w/resident/PA/FILM SOUND ENGINEER, agreed w/resident/PA/FILM SOUND ENGINEER, reviewed EMR data (avail), discussed with nursing, discussed with case mgmt Attending Assessment/Plan: acute on crhonic CHF systolic with severe pulm htn and rt sided heart failure. Last pulm pressures from echo in 10/2017 was 57mm and also showed inferior and posterior hpyokinesis. pt stable for discharge. will dc him on po bumex 1mg bid and cont aldactone home dose. will have him f/u with dr nazario . d/w pt the care plan and cardiology dr lund. dc home and see dc summary for more details.
[2018-05-06 10:16] VITALS: BP 111/48
[2018-05-06] MEDS ORDERED: BUMETANIDE1 M1 PO (10:34)
[2018-05-06] MEDS ORDERED: FERROUS SULFAT325 M2 PO (10:35)
--- NOTE | 2018-05-06 11:40 | PN- Cardiology ---
Subjective Subjective: Feeling better. Shortness of breath is improving. No chest pain. No palpitations. No diaphoresis Objective Vital Signs and I&Os Vital Signs Date Time Temp Pulse Resp B/P B/P Pulse O2 O2 Flow FiO2 Mean Ox Delivery Rate 05/06 1024 93 Nasal 3.0L Cannula 05/06 1016 76 111/48 05/06 1016 76 111/48 05/06 1015 76 111/48 05/06 1014 76 111/48 05/06 0800 93 Nasal 3.0L Cannula 05/06 0657 97.3 76 18 128/70 98 Nasal Cannula 05/05 2256 97.8 65 20 120/62 95 05/05 2050 60 100/40 05/05 2046 60 100/40 05/05 1354 98.1 60 20 100/40 94 Nasal Cannula 05/05 1205 100 Nasal 3.0L Cannula Intake & Output 05/06 1600 05/06 0800 05/06 0000 05/05 1600 05/05 0800 05/05 0000 Intake Total 300 250 374 120 120 Output Total 375 125 425 200 Balance 300 -125 249 -305 -80 Intake, IV 14 Intake, Oral 300 250 360 120 120 Number 1 Bowel Movements Output, Urine 375 125 425 200 Patient 132 lb 132 lb Weight Physical Exam: Gen: NAD HEENT: normal Lungs: Few rales, normal resp. effort Heart: RRR, S1, S2, 2/6 systolic murmur Abdomen: Soft, nontender, no masses Extremities: No clubbing, cyanosis, or edema. Neuro: Alert and oriented x 3, cranial nerves intact Current Medications: Current Medications Sig/Damon Start time Last Medication Dose Route Stop Time Status Admin Albuterol Sulfate 3 ML Q4P PRN 05/03 0915 AC 05/04 INH 1829 Albuterol Sulfate 2 PUF Q4-6 PRN PRN 05/02 0215 AC 05/03 INH 0226 Aspirin Buffered 81 MG DAILY 05/02 900 AC 05/06 PO 1014 Atorvastatin Calcium 40 MG 1700 05/02 1700 AC 05/05 PO 1726 Bumetanide 1 MG BID 05/04 2100 AC 05/06 IV 1016 Carvedilol 25 MG BID 05/02 900 AC 05/06 PO 1016 Clopidogrel Bisulfate 75 MG DAILY 05/02 900 AC 05/06 PO 1014 Docusate Sodium 100 MG DAILY NEEDED PRN 05/02 2000 AC 05/04 PO 2116 Ferrous Sulfate 325 MG BID 05/02 1425 AC 05/06 PO 1014 Finasteride 5 MG DAILY 05/02 900 AC 05/06 PO 1014 Gabapentin 100 MG TID 05/04 1400 AC 05/06 PO 1014 Heparin Sodium 5,000 UNIT Q8 05/02 600 AC 05/06 (Porcine) SC 0551 Insulin Aspart 0 TIDAC 05/02 800 AC 05/05 SC 1733 Losartan Potassium 25 MG DAILY 05/02 900 AC 05/06 PO 1016 Omeprazole 40 MG DAILY AC 05/02 700 AC 05/06 PO 0551 Polyethylene Glycol 17 GM DAILY 05/03 1000 AC 05/06 PO 1014 Ranolazine 1,000 MG BID 05/02 900 AC 05/06 PO 1014 Spironolactone 25 MG DAILY 05/02 900 AC 05/06 PO 1015 Tamsulosin HCl 0.4 MG DAILY 05/02 900 AC 05/06 PO 1015 Tiotropium [place] 1 PUF DAILY 05/02 900 AC 05/05 INH 0909 Results Last 48 Hrs of Labs/Mics: Laboratory Tests 05/06/18 0633: Anion Gap 9, Estimated GFR > 60, BUN/Creatinine Ratio 20.0 05/05/18 0643: Anion Gap 10, Estimated GFR > 60, BUN/Creatinine Ratio 22.9, CBC w Diff NO MAN DIFF REQ, RBC 3.52 L, MCV 74.3 L, MCH 23.7 L, MCHC 31.9 L, RDW 18.4 H, MPV 8.1, Gran % 82.4 H, Lymphocytes % 6.7 L, Monocytes % 9.5 H, Eosinophils % 1.1 , Basophils % 0.3, Absolute Granulocytes 6.3, Absolute Lymphocytes 0.5 L, Absolute Monocytes 0.7 H, Absolute Eosinophils 0.1, Absolute Basophils 0 Recent Imaging Studies: Echocardiogram: 1. Mild to moderate aortic sclerosis is present with minimal aortic insufficiency. 2. Mitral leaflet thickening is present with mild mitral insufficiency and moderate to severe left atrial enlargement. 3. There is no significant pericardial fluid present 4. A left pleural effusion is present. 5. The left ventricular chamber size is upper normal witih global hypokinesia that is much worse in the inferoposterior / inferolateral segments with an ejection fraction of approximately 35%. 6. Enlargement of the right heart chambers is present with tricuspid insufficiency that is at least moderate in severity with minimal to mild pulmonic insufficiency and pulmonary hypertension with an estimated RV systolic pressure of at least 70 mmHg. 7. Pacemaker wires are present in the right heart chambers. Assessment/Plan Assessment/Plan Assessment: 1. CAD, status post CABG 2. Ischemic cardiomyopathy 3. Hypertension 4. Acute on chronic systolic heart failure Plan: * Change bumetanide to 1 mg p.o. twice daily * Likely ready for discharge today or tomorrow * Continue other cardiac medications per * Follow up with Dr. Jones Continue telemetry? Yes
[2018-05-06] MEDS ORDERED: GABAPENTIN100 M2 PO (15:07)
--- NOTE | 2018-05-06 21:53 | Discharge Summary ---
Visit Information Visit Dates Admission Date: 05/04/18 Discharge Date: 05/06/18 Hospital Course Course Attending Physician: Blayne DEE,Malcolm Gilbert Primary Care Physician: Frank DEE,[facility] Course: Mr Mejia is an 78 year old man w/ a PMHx of HTN, CAD s/p CABG, ischemic cardiomyopathy with HFrEF on 2L O2, bilateral carotid endarterectomy, bladder cancer s/p intravesical treatment, recurrent UTI, T2DM, PAD s/p left femoral angioplasty c/b pseudoaneurysm with subsequent repair was brought in with a chief concern of progressive lethargy and fatigue, decreased p.o. intake. No fever, chills, chest pain, abdominal pain, nausea vomiting. No dizziness, lightheadedness or falls lately. Reported occassional dyspnea upon exertion, and has been compliant w/ his medications. Reports occasional indiscretion to salt intake, but largely compliant. Has been taking his Bumetanide regularly, and there has been no change in his urine output or has any pedal edema. Checks his weight regularly, and is very cognizant of his weight gain. He follows up with his photographer motion picture regularly. At the time of admission-temperature 98.2, pulse rate 63, respiration 22, blood pressure 116/56, pulse ox 99% on 2 L. Pertinent lab findings- WBC 8.5 (84% granulocytes),, hemoglobin 8.9 (baseline around 9), MCV 74.2, platelets 339. Sodium 138, potassium 5.0, chloride 97, bicarb 29, anion gap 12 BUN 25, creatinine 0.7, glucose 126, d Dimer 1775 ProBNP 7780. Urinalysis clear. Chest [id number] increasing bilateral pleural effusions. Persistent pulmonary edema. CTA chest-1. No evidence for acute or chronic pulmonary embolism.2. There is a pulmonary hypertension. 3. Parenchymal disease at both bases appears similar favoring chronic roundedatelectasis.4. Increasing nonspecific mildly enlarged mediastinal lymph nodes.4. Pleural effusions similar.VTE: negative Echo 11/14- Normal size left ventricle. Borderline left ventricular hypertrophy. Left ventricular ejection fraction is estimated at 35-40 %. Severe inferior and posterior hypokinesis. Mild left atrial dilatation. Mild mitral regurgitation. Mild tricuspid regurgitation. Right ventricular systolic pressure estimated to be elevated at 58 mmHg. Mild pulmonic regurgitation. Left pleural effusion is seen. Problem list: 1. Cardiogenic pulm edema secondary to ischemic CM w/ HFrEF: We are treating the patient for his chronic systolic and diastolic CHF EF 30-35%, stage 2 diastolic dysfunction) 3. h/o CAD s/p CABG 4. s/p AICD 5. Microcytic anemia 6. b/l Pleural effusion chronic The patient is placed in observation on the telemetry unit for closer monitoring. Patient was started on spironolactone and bumex with good diuresis. ACS ruled out with EKGs and troponins. Echo was done and shows moderately reduced global left ventricular systolic function. Moderately abnormal left ventricular ejection fraction estimated at 30-35% hypokinetic inferior wall and hypokinetic posterior wall. Additionally patient has severe pulmonary hypertension. We monitored weight, intakes and outputs and daily weights. We decreased gabapentin from 400 mg twice daily to 100 mg 3 times daily due to known increase in fluid retention on gabapentin. Additionally this medication can cause increased lethargy which patient was reportedly experiencing over the weekend and at home prior to admission. We consulted cardiology and pulmonology. As per cardiology we will consider therapeutic right thoracentesis if symptoms continue or worsen but for now no further workup regarding the infiltrates as per pulmonary consult. Bilateral large pleural effusion which has been present for more than one year, bilateral thoracentesis done previously does reveal that it's most likely a transudate with low protein i.e. CHF. The patient appeared to improve over time until the day before discharge when he had increased work of breathing, tachypnea to 40, and grunting while he breathed. His vitals were stable. No other symptoms. We did follow up xray chest which showed resolving pulmonary edema. The countinued treatement and patient was stable the next day for discharge. As per Dr. Lund, photographer motion picture, we will discharge the patient on 1 mg of Bumex by mouth twice a day and he can continue his spironolactone 25 mg daily. Of note, patient came in with original complaint of weakness and lethargy. He noted that he had been having a one week history of difficulty swallowing in what felt to be his mid esophagus, no issue initiating swallow as per swallow evaluation that we ordered. We recommended he continue mechanical ground food and thin liquids. CHF diet, 2gm salt restriction. Additionally, as patient presented to ER with complaints of weakness, physical therapy consult is suggesting discharge to home with PT services at the time of discharge. Patient usually ambulates with cane or walker. B12 and folate levels normal. TSHr normal. Finally, patient was found to have continued anemia, chronic. Iron studies done showed low iron, normal ferritin, normal TIBC and iron supplementation was started. Followed stool guaiac which was negative. Allergies: Coded Allergies: No Known Allergies (02/16/17) Disposition Summary Disposition Principal Diagnosis: 1. Cardiogenic pulm edema secondary to ischemic CM w/ HFrEF: chronic systolic and diastolic CHF EF 30-35%, stage 2 diastolic dysfunction Additional Diagnosis: h/o CAD s/p CABG s/p AICD Microcytic anemia b/l chronic Pleural effusion chronic Discharge Disposition: home or self care Discharge Instructions General Discharge Information Code Status: Full Code Patient's Diet: mechanical ground and thin liquids Patient's Activity: as tolerated Follow-Up Instructions/Appts: 1. follow up with PCP in one week 2. follow up with photographer motion picture in one week Medications at Discharge Discharge Medications: Stop taking the following medications: Bumetanide (Bumetanide) 2 MG TABLET ORAL DAILY Continue taking these medications: Clopidogrel Bisulfate (Plavix) 75 MG TABLET 1 Tablet ORAL DAILY Comments: Last Taken: 05/06/18 Time: 10:00 AM Finasteride (Finasteride) 5 MG TABLET 1 Tablet ORAL DAILY Comments: Last Taken: 05/06/18 Time: 10:00 AM Omeprazole (Omeprazole) 20 MG TABLET. 1 Tablet ORAL DAILY BEFORE BREAKFAST Comments: Last Taken: 05/06/18 Time: 6:00 AM Ranolazine (Ranexa) 500 MG TAB.ER.12H 2 Tablet ORAL TWICE DAILY Comments: Last Taken: 05/06/18 Time: 10:00 AM Tamsulosin HCl (Flomax) 0.4 MG CAP.ER.24H 1 Capsule ORAL DAILY Comments: Last Taken: 05/06/18 Time: 10:00 AM Aspirin (Ecotrin*) 81 MG TABLET.DR 1 Tablet ORAL DAILY Comments: Last Taken: 05/06/18 Time: 10:00 AM Acetaminophen (Tylenol Extra Strength) 500 MG TABLET 2 Tablet ORAL as needed for PAIN Comments: NOT GIVEN IN HOSPITAL Melatonin (Melatonin) 3 MG TABLET 6 Milligram ORAL Every night Comments: NOT GIVEN IN HOSPITAL Albuterol Sulfate (Proair Hfa) 90 MCG HFA.AER.AD 2 Puff Inhale through mouth EVERY 4-6 HOURS NEEDED as needed for SOB Qty = 1 Comments: Last Taken: 05/03/18 Time: 2:30 AM VENTOLIN GIVEN Atorvastatin Calcium (Lipitor) 40 MG TABLET 1 Tablet ORAL DAILY Comments: Last Taken: 05/05/18 Time: 5:30 PM Tiotropium [place] (Spiriva) 18 MCG CAP.W.DEV 1 Puff Inhale through mouth DAILY Qty = 1 Comments: Last Taken: 05/06/18 Time: 10:00 AM Magnesium Oxide (Magnesium) 400 MG CAPSULE 1 Capsule ORAL DAILY Qty = 30 Comments: NOT GIVEN IN HOSPITAL Metformin HCl (Metformin HCl) 500 MG TABLET 1 Tablet ORAL TWICE DAILY Comments: NOT GIVEN IN HOSPITAL Losartan Potassium (Cozaar) 25 MG TABLET 1 Tablet ORAL DAILY Comments: Last Taken: 05/06/18 Time: 10:00 AM Spironolactone (Spironolactone) 25 MG TABLET 1 Tablet ORAL DAILY Comments: Last Taken: 05/06/18 Time: 10:00 AM Multivit-Min/FA/Lycopen/Lutein (Centrum Silver Men Tablet) 300 MCG-600 MCG-300 MCG TABLET 1 Tablet ORAL DAILY Comments: NOT GIVEN IN HOSPITAL Ubidecarenone (Co Q-10) 200 MG CAPSULE 1 Tablet ORAL DAILY Comments: NOT GIVEN IN HOSPITAL Beta-Carotene (Beta Carotene) 10,000 UNIT CAPSULE 1 Capsule ORAL DAILY Comments: NOT GIVEN IN HOSPITAL Carvedilol (Carvedilol) 25 MG TABLET 1 Tablet ORAL TWICE DAILY Comments: Last Taken: 05/06/18 Time: 10:00 AM Start taking the following new medications: Ferrous Sulfate (Ferrous Sulfate) 325 MG (65 MG IRON) TABLET.DR 325 Milligram ORAL TWICE DAILY Qty = 60 No Refills Instructions: . Comments: Last Taken: 05/06/18 Time: 10:00 AM Gabapentin (Gabapentin) 100 MG CAPSULE 100 Milligram ORAL THREE TIMES DAILY Qty = 60 No Refills Bumetanide (Bumetanide) 1 MG TABLET 1 Tablet ORAL TWICE DAILY Qty = 60 No Refills Comments: Last Taken: 05/06/18 Time: 10:00 AM IV GIVEN THIS MORNING Copies To: Anmol Montague DC Attending MD Review Statement Documenting Attending: Malcolm Cisneros MD Other Findings: Agree with the above discharge plan.
== END 2018-05-06 15:30 | disposition home health service (06) | DRG 292 ==
LOC: ERH 18:42 → ERHI 23:32 → ENRESERV 05-02 13:45 → ENTRNSPT 05-02 15:26 → EDTRNSPT 05-02 15:43 → EDTRNSPTSTS 05-02 15:43 → 1NO 05-02 15:51 → CMPTRNSPT 05-02 16:01 → 1NO 05-04 13:33 → ENPENDDIS 05-06 10:42 → 1NO 05-06 15:30
PROVIDERS: Emergency Medicine; Hospitalist; Internal Medicine Endocrinology, Diabetes & Metabolism
DX: I11.0 Hypertensive heart disease with heart failure (principal); J90 Pleural effusion, not elsewhere classified; J96.11 Chronic respiratory failure with hypoxia; R64 Cachexia; Z68.1 Body mass index [BMI] 19.9 or less, adult; J81.1 Chronic pulmonary edema; R53.1 Weakness; I50.23 Acute on chronic systolic (congestive) heart failure; E86.0 Dehydration; I25.5 Ischemic cardiomyopathy; J44.9 Chronic obstructive pulmonary disease, unspecified; Z99.81 Dependence on supplemental oxygen; I27.20 Pulmonary hypertension, unspecified; I50.811 Acute right heart failure; Z85.51 Personal history of malignant neoplasm of bladder; I50.22 Chronic systolic (congestive) heart failure; I25.10 Atherosclerotic heart disease of native coronary artery without angina pectoris; Z95.1 Presence of aortocoronary bypass graft; I73.9 Peripheral vascular disease, unspecified
CPT/HCPCS: 1NP; 36415; 36592; 71045; 81001; 82436; 92610-GN; 93005; 93010; 93306; 97110-GO; 97116-GO; 97116-GP; 97161-GP; 97530-GO; 97530-GP; G8978-GP; G8979-GP; G8996-GN; G8997-GN; J1644; J3490; J7040

== ENCOUNTER 2018-05-14 11:29 | Observation (INO) | payer OTHER, MEDICARE ==
[~2018-05-14] VITALS: Ht 180.3 cm; Wt 55.1 kg
[~2018-05-14 11:29] MED LIST changes: +BUMETANIDE1 M1 PO; +GABAPENTIN100 M2 PO
--- NOTE | 2018-05-14 12:06 | ED CARDIAC/CP/PALPITATIONS ---
History of Present Illness General Chief Complaint: Dyspnea (COPD, CHF, Other) Stated Complaint: SOB Source: patient, family Exam Limitations: poor historian Vital Signs & Intake/Output Vital Signs & Intake/Output Vital Signs Date Time Temp Pulse Resp B/P B/P Pulse O2 O2 Flow FiO2 Mean Ox Delivery Rate 05/14 1728 98.5 64 18 138/65 98 Nasal 2.5L Cannula 05/14 1417 98.1 79 20 126/58 95 Nasal 2.0L Cannula 05/14 1200 Nasal 3.0L Cannula 05/14 1141 98.1 62 21 120/56 97 Nasal 3.0L Cannula 05/14 1138 90 Room Air Allergies Coded Allergies: No Known Allergies (02/16/17) Reconcile Medications Acetaminophen (Tylenol Extra Strength) 500 MG TABLET 2 TAB PO PRN PAIN ( Reported) Albuterol Sulfate (Proair Hfa) 90 MCG HFA.AER.AD 2 PUF INH Q4-6 PRN PRN SOB ( Reported) Aspirin (Ecotrin*) 81 MG TABLET.DR 1 TAB PO DAILY HEART (Reported) Atorvastatin Calcium (Lipitor) 40 MG TABLET 1 TAB PO DAILY heart (Reported) Beta-Carotene (Beta Carotene) 10,000 UNIT CAPSULE 1 CAP PO DAILY SUPPLEMENT ( Reported) Bumetanide 1 MG TABLET 1 TAB PO BID diuretic Carvedilol 25 MG TABLET 1 TAB PO BID HEART/BP (Reported) Clopidogrel Bisulfate (Plavix) 75 MG TABLET 1 TAB PO DAILY BLOOD THINNER ( Reported) Ferrous Sulfate 325 MG (65 MG IRON) TABLET.DR 325 MG PO BID ANEMIA . Finasteride 5 MG TABLET 1 TAB PO DAILY PROSTATE (Reported) Gabapentin 100 MG CAPSULE 100 MG PO TID neuropathy Losartan Potassium (Cozaar) 25 MG TABLET 1 TAB PO DAILY HTN (Reported) Magnesium Oxide (Magnesium) 400 MG CAPSULE 1 CAP PO DAILY supplement Melatonin 3 MG TABLET 6 MG PO QPM SUPPLEMENT (Reported) Metformin HCl 500 MG TABLET 1 TAB PO BID DM (Reported) Multivit-Min/FA/Lycopen/Lutein (Centrum Silver Men Tablet) 300 MCG-600 MCG-300 MCG TABLET 1 TAB PO DAILY SUPPLEMENT (Reported) Omeprazole 20 MG TABLET. 1 TAB PO DAILY AC GI (Reported) Ranolazine (Ranexa) 500 MG TAB.ER.12H 2 TAB PO BID ANGINA/CHEST PAIN ( Reported) Spironolactone 25 MG TABLET 1 TAB PO DAILY DIURETIC (Reported) Tamsulosin HCl (Flomax) 0.4 MG CAP.ER.24H 1 CAP PO DAILY PROSTATE (Reported) Tiotropium Eugene (Spiriva) 18 MCG CAP.W.DEV 1 PUF INH DAILY lung Ubidecarenone (Co Q-10) 200 MG CAPSULE 1 TAB PO DAILY SUPPLEMENT (Reported) Triage Note: PT TO ED WITH FAMILY FROM HOME WITH REPORT OF INCREASING CONFUSION AND VISUAL HALLUCINATIONS OVER THE PAST MONTH. STATES SEEN FOR SAME RECENTLY AND WORK UP NEGATIVE. PT ALSO SOB, HX OF COPD. 02 SAT 90% RA ON ARRIVAL. DENIES COUGH. Triage Nurses Notes Reviewed? yes Onset: Gradual Duration: constant Timing: remote history Radiation: no radiation HPI: Patient is a 78-year-old male with a past medical history of hypertension, CAD status post CABG, ischemic cardiomyopathy, CHF currently on 2 L of home O2, bilateral endarterectomy, bladder cancer, frequent UTIs, type 2 diabetes, peripheral artery disease, who was recently admitted and discharged from [facility] 8 days ago for concerns of cardiogenic pulmonary edema secondary to ISCHEMIC CM. an exacerbation of CHF who presents emergency room in which the is concerned of patient's declining mental health where she states that he has been having intermittent confusion, excessive counting of numbers, visual hallucinations, dictation on pressing an unknown button and having decline in active daily living such as dressing himself states that this is been going on for a few months however is worse in the past few weeks Patient's only complaint on arrival is chronic shortness of breath Patient denies any fevers but does have chills Denies any chest pain arm pain jaw pain nausea vomiting leg swelling hemoptysis (Allie LYONS,Faisal) Past History Travel History Traveled to [place] past 21 day No Medical History Any Pertinent Medical History? 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 Psychosocial History Who do you live with Spouse Services at Home None What is your primary language Estonian Tobacco Use: Quit >30 days ago ETOH Use: denies use Illicit Drug Use: denies illicit drug use Family History Family History, If Any: FATHER Myocardial infarction MOTHER Myocardial infarction Hx Contributory? No (Faisal Ge) Review of Systems Review of Systems Constitutional: Reports: see HPI, chills. EENTM: Reports: no symptoms. Respiratory: Reports: see HPI. Cardiovascular: Reports: no symptoms. GI: Reports: no symptoms. Genitourinary: Reports: no symptoms. Musculoskeletal: Reports: no symptoms. Skin: Reports: no symptoms. Neurological/Psychological: Reports: see HPI. Hematologic/Endocrine: Reports: no symptoms. Immunologic/Allergic: Reports: no symptoms. All Other Systems: Reviewed and Negative (Faisal Ge) Physical Exam Physical Exam General Appearance: no apparent distress, thin Head: atraumatic Eyes: Bilateral: normal appearance, PERRL, EOMI. Ears, Nose, Throat: normal pharynx, normal ENT inspection, hearing grossly normal Neck: normal inspection, no midline tenderness Respiratory: crackles Cardiovascular: regular rate/rhythm, systolic murmur Gastrointestinal: normal bowel sounds, soft, non-tender Rectal: normal rectal tone, heme negative stool, BROWN STOOL Extremities: normal inspection, normal range of motion, no edema Neurologic/Psych: no motor/sensory deficits, awake, alert, oriented x 3 Skin: intact, normal color, warm/dry Core Measures ACS in differential dx? No CVA/TIA Diagnosis No Sepsis Present: No Sepsis Focused Exam Completed? No (Faisal Ge) Progress Differential Diagnosis: AMI, aortic dissection, atrial fibrillation, cholecystitis, CHF/pulm edema, costochondritis, hyperkalemia, hypovolemia, hyperthyroid, hyperventilation, intracranial hemorrhage, musculoskeletal pain, myocarditis, pancreatitis, pericarditis, pneumonia, pneumothorax, PSVT, pulmonary embolism, PUD/GERD, PVCs/PACs, respiratory failure, sepsis, unstable angina, V-fib/V-Tach, WPW syndrome Plan of Care: Orders Procedure Date/time Status TROPONIN LEVEL 05/15 0100 Active EKG 05/15 0100 Active Heart Healthy Diet 05/14 D Active TROPONIN LEVEL 05/14 1900 Active EKG 05/14 1900 Active ED- NURSING MISC 05/14 1750 Active FingerStick- Glucose 05/14 1743 Active CULTURE,URINE 05/[address] in observation 05/14 1556 Active ED Holding Orders 05/14 1556 Active Add-on Test (ER Only) 05/14 1556 Active Code Status 05/14 1556 Active Patient Data 05/14 1541 Active LACTIC ACID 05/14 1522 Complete URINE OSMOLALITY 05/14 1255 Complete SERUM OSMOLALITY 05/14 1244 Complete Telemetry/Stone Rubber 05/14 1222 Active URINALYSIS 05/14 1222 Complete TROPONIN LEVEL 05/14 1222 Complete LACTIC ACID 05/14 1222 Complete COMPREHENSIVE METABOLIC PANEL 05/14 1222 Complete CBC WITHOUT DIFFERENTIAL 05/14 1222 Complete B-TYPE NATRIURETIC PEP (BNP) 05/14 1222 Complete Intake & Output 05/14 1200 Active EKG 05/14 1131 Active Current Medications Sig/Damon Start time Last Medication Dose Stop Time Status Admin Losartan Potassium 25 MG DAILY 05/15 900 UNVr (Cozaar) Magnesium Oxide 400 MG DAILY 05/15 900 UNVr (Mag-Ox) Spironolactone 25 MG DAILY 05/15 09 UNVr (Aldactone) Tamsulosin HCl 0.4 MG DAILY 05/15 900 UNVr (Flomax) Tiotropium Eugene 1 PUF DAILY 05/15 09 UNVr (Spiriva) Omeprazole 20 MG DAILY AC 05/15 07 UNVr (Prilosec) Carvedilol 25 MG BID 05/14 2100 UNVr (Coreg) Gabapentin 100 MG TID 05/14 2100 UNVr (Neurontin) Melatonin 6 MG QPM 05/14 2100 UNVr (Melatonin) Ranolazine 1,000 MG BID 05/14 2100 UNVr (Ranexa) Atorvastatin Calcium 40 MG DAILY 05/14 174 UNVr (Lipitor) Clopidogrel Bisulfate 75 MG DAILY 05/14 174 UNVr (Plavix) Finasteride 5 MG DAILY 05/14 174 UNVr (Proscar) Acetaminophen 500 MG Q8P PRN 05/14 174 UNVr (Tylenol) Albuterol Sulfate 2 PUF Q4-6 PRN PRN 05/14 174 UNVr (Ventolin) Aspirin Buffered 81 MG DAILY 05/14 174 UNVr (Ecotrin) Laboratory Tests 05/14/18 1517: Lactic Acid 1.7 05/14/18 1255: Urine Osmolality 413 05/14/18 1255: Urinalysis LIGHT H, Urine Color YEL, Urine Clarity CLEAR, Urine pH 6.5, Ur Specific [place] 1.015, Urine Protein TRACE H, Urine Ketones NEG, Urine Nitrite NEG, Urine Bilirubin NEG, Urine Urobilinogen 0.2, Ur Leukocyte Esterase NEG, Ur Microscopic SEDIMENT EXAMINED, Urine RBC 1-3, Urine WBC RARE, Ur Epithelial Cells OCCAS, Urine Bacteria RARE H, Urine Hemoglobin NEG, Urine Glucose NEG 05/14/18 1244: Anion Gap 13, Estimated GFR > 60, BUN/Creatinine Ratio 60.0 H, Glucose 245 H, Serum Osmolality 288, Lactic Acid 2.5 H, Calcium 8.6, Total Bilirubin 0.4, AST 15 L, ALT 23, Alkaline Phosphatase 67, Troponin I < 0.01, Ork-W-Azvtwvkwmxn Pept 81316 H, Total Protein 7.3, Albumin 3.2 L, Globulin 4.1, Albumin/Globulin Ratio 0.8 L, CBC w Diff MAN DIFF ORDERED, RBC 3.42 L, MCV 74.4 L, MCH 23.6 L , MCHC 31.8 L, RDW 20.2 H, MPV 8.3, Gran % 89.4 H, Lymphocytes % 1.9 L, Monocytes % 8.6, Eosinophils % 0.1, Basophils % 0, Absolute Granulocytes 8.4 H, Segmented Neutrophils 84 H, Band Neutrophils 4, Absolute Lymphocytes 0.2 L, Lymphocytes 2 L, Monocytes 9, Absolute Monocytes 0.8 H, Absolute Eosinophils 0 , Basophils 1, Absolute Basophils 0, Platelet Estimate ADEQUATE, Polychromasia 1 +, Hypochromic-Microcytic 3+, Anisocytosis 1+, Microcytic Cells 1+ Microbiology 05/14 1255 URINE ROUT: Urine Culture - RECD Patient on initial presentation is nontoxic-appearing afebrile and is following all commands appropriately patient is also alert and oriented No respiratory distress on exam cackles noted to posterior lung bases Patient does present 98% room air patient was given supplemental oxygen due to complaints of shortness breath chest imaging findings elevated BNP the patient has concerns of CHF exacerbation Discussed patient with Dr. Jones he advised IV Lasix and aware of observation placement Patient also has concerns of anemia fecal occult was negative after rectal exam no active bleeding patient may require transfusion if H&H continues to lower Diagnostic Imaging: Viewed by Me: CT Scan. Radiology Impression: SEE COMMENTS Initial ED EKG: atrial paced 68 bpm Prior EKG: unchanged Comments: PATIENT: CAITY BELL PRESENT AGE: 78 PATIENT ACCOUNT NO: [id number] : 38 LOCATION: [facility] ORDERING PHYSICIAN: Faisal LYONS SERVICE DATE: 05/14/18 EXAM TYPE: CAT - CTA CHEST-PULMONARY EMBOLISM EXAMINATION: CT ANGIOGRAM CHEST WITHOUT AND WITH CONTRAST (CT PULMONARY ANGIOGRAM FOR PE) CLINICAL INFORMATION: AMS, increased intermittent confusion, SOB, CHF. COMPARISON: Chest radiograph earlier today and CTA of the chest 05/07/2018. TECHNIQUE: Prior to contrast administration, noncontrast localization images were obtained. Subsequently, multidetector volumetric imaging was performed from the thoracic inlet to below the diaphragms following the administration of 95 mL Optiray 320 intravenous contrast. No contrast reaction reported. Sagittal, coronal, and MIP oblique sagittal reformatted images were obtained on the CT workstation, uploaded to PACS, and reviewed. Total exam dose-length product 272 mGy-cm. FINDINGS: QUALITY OF STUDY/CONTRAST BOLUS: Excellent PULMONARY ARTERIES: No central or segmental pulmonary emboli. THORACIC AORTA: No aneurysm . LUNG: Again noted are unchanged diffuse ground-glass changes with marked bullous changes worse in the upper lobes. Basilar atelectasis is noted bilaterally along with 2 large right-sided areas of round atelectasis which are also unchanged. The high density in these areas is thought to represent aspirated barium. PLEURA: Bilateral pleural effusions, right greater than left, are unchanged. MEDIASTINUM: Small mediastinal nodes are again seen as are the patient's pacer leads. Patient is status post median sternotomy. Coronary calcifications are noted along with evidence of coronary artery bypass grafting. No evidence of septal bowing or right heart strain. CHEST WALL/AXILLA: No axillary or internal mammary lymphadenopathy. OSSEOUS STRUCTURES: No acute or suspicious osseous abnormality. UPPER ABDOMEN: Some diaphragmatic calcification is noted on the right. No reflux of contrast into the hepatic veins to suggest elevated right heart pressures. IMPRESSION: No evidence of pulmonary emboli. Marked underlying pulmonary disease which is all stable as described above. Bilateral unchanged pleural effusions. VTE: Negative DICTATED BY: Jasen Montano MD DATE/TIME DICTATED:05/14/181432 SLAT BASKET MAKER:VANESSA DATE/TIME TRANSCRIBED:05/14/181432 CONFIDENTIAL, DO NOT COPY WITHOUT APPROPRIATE AUTHORIZATION. <Electronically signed in Other Vendor System> SIGNED BY: Jasen Montano MD 05/14/18 8013 PATIENT: CAITY BELL PRESENT AGE: 78 PATIENT ACCOUNT NO: [id number] : 38 LOCATION: [facility] ORDERING PHYSICIAN: Faisal LYONS SERVICE DATE: 05/14/18-1222 EXAM TYPE: RAD - XRY-CHEST XRAY, TWO VIEWS EXAMINATION: XR CHEST CLINICAL INFORMATION: Shortness of breath. COMPARISON: CTA dated 05/07/2018 and plain film chest dated 05/04/2018. TECHNIQUE: 2 views of the chest were obtained. FINDINGS: There is mild cardiomegaly. Upper zone redistribution and central venous congestion consistent with elevated left ventricular end-diastolic pressure and mild CHF. This finding appears worse than noted on the prior chest radiograph. Bilateral pleural effusions remain present about the same size as they were on 05/04/2018. Pacemaker is present with 3 leads. Bibasilar atelectasis is present. IMPRESSION: Cardiomegaly with mild CHF and bilateral pleural effusions. DICTATED BY: Jasen Montano MD DATE/TIME DICTATED:05/14/181256 SLAT BASKET MAKER:VANESSA DATE/TIME TRANSCRIBED:05/14/18 (Faisal Ge) Departure Departure Disposition: STILL A PATIENT Condition: Stable Clinical Impression Primary Impression: CHF exacerbation Secondary Impressions: Anemia Referrals: Juan Carlos Marie MD (PCP/Family) Departure Forms: Customer Survey General Discharge Information Observation Note Spoke With: Israel Wheeler MD Physician Advisor Notified: JONNATHAN DEE,ESTEFANIA [address] Patient In: Non-ED OBS Care Area Rationale for Observation: My rational for observation is as follows [patient requires telemetry monitoring cardiology consultation IV Lasix repeat blood work monitor of hemoglobin and hematocrit and possible blood transfusion]. (Faisal Ge) PA/[employer] CH[employer]RIER Co-Sign Statement Statement: ED Attending supervision documentation- [X] I saw and evaluated the patient. I have also reviewed all the pertinent lab results and diagnostic results. I agree with the findings and the plan of care as documented in the PA's/POTATO CHIP FRIER's documentation. [] I have reviewed the ED Record and agree with the PA's/POTAT[employer] CHIP FRIER's documentation. [] Additions or exceptions (if any) to the PAs/POTATO CHIP FRIER's note and plan are summarized below: [] (Chance Villavicencio DO) Critical Care Note Critical Care Note Critical Care Time: non-applicable (Allie LYONS,Faisal)
[2018-05-14 12:59] LABS: ABSOLUTE BASOPHIL COUNT 0 /CUMM (0.0-0.2); ABSOLUTE EOSINOPHIL COUNT 0 /CUMM (0.0-0.7); ABSOLUTE GRANULOCYTE CT 8.4 /CUMM (1.4-6.5); ABSOLUTE LYMPH COUNT 0.2 /CUMM (1.2-3.4); ABSOLUTE MONOCYTE COUNT 0.8 /CUMM (0.10-0.60); BASOPHIL % 0 % (0.0-2.0); EOSINOPHIL % 0.1 % (0-5); GRANULOCYTE % 89.4 % (42.2-75.2); HEMATOCRIT 25.5 % (42-52); MEAN CORPUSCULAR HGB 23.6 PG (27.0-31.0); MEAN CORPUSCULAR HGB CONC 31.8 G/DL (33.0-37.0); MEAN CORPUSCULAR VOLUME 74.4 FL (80.0-94.0); MEAN PLATELET VOLUME 8.3 FL (7.4-10.4); PLATELET COUNT 286 /CUMM (130-400); RBC DISTRIBUTION WIDTH 20.2 % (11.5-14.5); RED BLOOD CELL CT 3.42 /CUMM (4.70-6.10); WHITE BLOOD CELL COUNT 9.4 /CUMM (4.8-10.8)
--- NOTE | 2018-05-14 13:18 | RADIOLOGY REPORT ---
EXAMINATION: XR CHEST CLINICAL INFORMATION: Shortness of breath. COMPARISON: CTA dated 05/07/2018 and plain film chest dated 05/04/2018. TECHNIQUE: 2 views of the chest were obtained. FINDINGS: There is mild cardiomegaly. Upper zone redistribution and central venous congestion consistent with elevated left ventricular end-diastolic pressure and mild CHF. This finding appears worse than noted on the prior chest radiograph. Bilateral pleural effusions remain present about the same size as they were on 05/04/2018. Pacemaker is present with 3 leads. Bibasilar atelectasis is present. IMPRESSION: Cardiomegaly with mild CHF and bilateral pleural effusions.
--- NOTE | 2018-05-14 14:41 | CT SCAN REPORT ---
EXAMINATION: CT HEAD WITHOUT CONTRAST CLINICAL INFORMATION: Acute mental status change. Increased intermittent confusion. COMPARISON: CT scan of the head dated 11/22/2017 and 11/21/2017. TECHNIQUE: Contiguous axial imaging was performed from the skull base to vertex without intravenous administration of contrast. DLP: 616.09 mGy-cm FINDINGS: Evaluation is limited by motion artifact. There is no evidence of acute intracranial hemorrhage or territorial infarction. No abnormal mass effect or midline shift is seen. [place] to white matter differentiation is well preserved. No extra-axial fluid collections are identified. The ventricles and sulci are diffusely enlarged, consistent with involutional changes. Periventricular deep white matter low-attenuation is again seen, unchanged, consistent with ischemic small vessel disease. Small lacunar infarction is seen in the left caudate lobe region. Calcification of the vertebrobasilar arteries and both carotid siphons noted. The osseous structures and soft tissues are normal. There is minimal mucosal thickening posteriorly within the sphenoid sinus. The mastoid air cells and visualized portions of the remainder of the paranasal sinuses are well aerated. IMPRESSION: Limited exam due to motion. 1. No acute intracranial process. 2. Changes of ischemic small vessel disease and volume loss.
--- NOTE | 2018-05-14 14:51 | CT SCAN REPORT ---
EXAMINATION: CT ANGIOGRAM CHEST WITHOUT AND WITH CONTRAST (CT PULMONARY ANGIOGRAM FOR PE) CLINICAL INFORMATION: AMS, increased intermittent confusion, SOB, CHF. COMPARISON: Chest radiograph earlier today and CTA of the chest 05/07/2018. TECHNIQUE: Prior to contrast administration, noncontrast localization images were obtained. Subsequently, multidetector volumetric imaging was performed from the thoracic inlet to below the diaphragms following the administration of 95 mL Optiray 320 intravenous contrast. No contrast reaction reported. Sagittal, coronal, and MIP oblique sagittal reformatted images were obtained on the CT workstation, uploaded to PACS, and reviewed. Total exam dose-length product 272 mGy-cm. FINDINGS: QUALITY OF STUDY/CONTRAST BOLUS: Excellent PULMONARY ARTERIES: No central or segmental pulmonary emboli. THORACIC AORTA: No aneurysm . LUNG: Again noted are unchanged diffuse ground-glass changes with marked bullous changes worse in the upper lobes. Basilar atelectasis is noted bilaterally along with 2 large right-sided areas of round atelectasis which are also unchanged. The high density in these areas is thought to represent aspirated barium. PLEURA: Bilateral pleural effusions, right greater than left, are unchanged. MEDIASTINUM: Small mediastinal nodes are again seen as are the patient's pacer leads. Patient is status post median sternotomy. Coronary calcifications are noted along with evidence of coronary artery bypass grafting. No evidence of septal bowing or right heart strain. CHEST WALL/AXILLA: No axillary or internal mammary lymphadenopathy. OSSEOUS STRUCTURES: No acute or suspicious osseous abnormality. UPPER ABDOMEN: Some diaphragmatic calcification is noted on the right. No reflux of contrast into the hepatic veins to suggest elevated right heart pressures. IMPRESSION: No evidence of pulmonary emboli. Marked underlying pulmonary disease which is all stable as described above. Bilateral unchanged pleural effusions. VTE: Negative
--- NOTE | 2018-05-14 15:52 | History & Physical ---
Allen Sanchez 05/14/18 1552: General Information and HPI MD Statement: I have seen and personally examined CAITY BELL and documented this H&P. The patient is a 78 year old M who presented with a patient stated chief complaint of not being able to catch his breath. Source of Information: patient History of Present Illness: Mr. Jones is an 78-year-old male with past medical history of COPD on 2 L oxygen at home, hypertension, coronary artery disease status post CABG, congestive heart failure with previous EF 30-35%, bilateral endarterectomy, bladder cancer, frequent UTIs, type 2 diabetes, peripheral artery disease was recently discharged from [facility] 8 days ago for CHF exacerbation secondary to ischemic cardiomyopathy. He was advised to take Bumetanide 1mg BID. Mr. Bell claims to be compliant with his medication. Patient presented to the emergency room with his who was not present on initial assessment. As per ER statement, patient's had said he has been having increased intermittent confusion, excessive counting of numbers, visual hallucinations, claiming to want to "press a button" of unknown status, and having difficulty catching his breath. Patient states this has been going on for past few weeks and increased shortness of breath yesterday. As per the patient, he complains of shortness of breath andtrouble collecting thoughts. In addition, he reported urinary urgency, hesitancy and dysuria. Patient is concerned about the change in color of his urination. He claims that his urine has become very dark. Denies any fevers, chills, chest pain, nausea, vomiting. He does however state that he has a decrease in appetite. Denies any falls and uses a walker and cane at baseline. Mr. Bell follows up with [facility], [facility]. Rowell and states that adjustments were made to his medications post discharge that he cannot recall at this time. Patient follows up with PCP at the [facility], Dr. Cobos. Patient follows up with biology intern Dr. Rowell at the [facility]. Allergies/Medications Allergies: Coded Allergies: No Known Allergies (02/16/17) Home Med list Acetaminophen (Tylenol Extra Strength) 500 MG TABLET 2 TAB PO PRN PAIN ( Reported) Albuterol Sulfate (Proair Hfa) 90 MCG HFA.AER.AD 2 PUF INH Q4-6 PRN PRN SOB ( Reported) Aspirin (Ecotrin*) 81 MG TABLET.DR 1 TAB PO DAILY HEART (Reported) Atorvastatin Calcium (Lipitor) 40 MG TABLET 1 TAB PO DAILY heart (Reported) Beta-Carotene (Beta Carotene) 10,000 UNIT CAPSULE 1 CAP PO DAILY SUPPLEMENT ( Reported) Bumetanide 1 MG TABLET 1 TAB PO BID diuretic Carvedilol 25 MG TABLET 1 TAB PO BID HEART/BP (Reported) Clopidogrel Bisulfate (Plavix) 75 MG TABLET 1 TAB PO DAILY BLOOD THINNER ( Reported) Ferrous Sulfate 325 MG (65 MG IRON) TABLET.DR 325 MG PO BID ANEMIA . Finasteride 5 MG TABLET 1 TAB PO DAILY PROSTATE (Reported) Gabapentin 100 MG CAPSULE 100 MG PO TID neuropathy Losartan Potassium (Cozaar) 25 MG TABLET 1 TAB PO DAILY HTN (Reported) Magnesium Oxide (Magnesium) 400 MG CAPSULE 1 CAP PO DAILY supplement Melatonin 3 MG TABLET 6 MG PO QPM SUPPLEMENT (Reported) Metformin HCl 500 MG TABLET 1 TAB PO BID DM (Reported) Multivit-Min/FA/Lycopen/Lutein (Centrum Silver Men Tablet) 300 MCG-600 MCG-300 MCG TABLET 1 TAB PO DAILY SUPPLEMENT (Reported) Omeprazole 20 MG TABLET.DR 1 TAB PO DAILY AC GI (Reported) Ranolazine (Ranexa) 500 MG TAB.ER.12H 2 TAB PO BID ANGINA/CHEST PAIN ( Reported) Spironolactone 25 MG TABLET 1 TAB PO DAILY DIURETIC (Reported) Tamsulosin HCl (Flomax) 0.4 MG CAP.ER.24H 1 CAP PO DAILY PROSTATE (Reported) Tiotropium [place] (Spiriva) 18 MCG CAP.W.DEV 1 PUF INH DAILY lung Ubidecarenone (Co Q-10) 200 MG CAPSULE 1 TAB PO DAILY SUPPLEMENT (Reported) Past History Travel History Traveled to [place] past 21 day No Medical History Neurological: NONE EENT: oral HSV Cardiovascular: CAD, CHF, hypertension, hyperlipidemia, PVD Respiratory: emphysema Gastrointestinal: NONE Hepatic: NONE Renal: NONE Musculoskeletal: ARTHRITIS Psychiatric: NONE Endocrine: diabetes Blood Disorders: NONE Cancer(s): 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 Past Family/Social History Family History Relations & Conditions if any FATHER Myocardial infarction MOTHER Myocardial infarction Psychosocial History Who Do You Live With? spouse Services at Home: None Primary Language: Bahamian ETOH Use: denies use Illicit Drug Use: denies illicit drug use Functional Ability ADLs Independent: dressing, eating, toileting, bathing. Ambulation: cane IADLs Independent: shopping, housework, finances, food prep, telephone, transportation , medication admin. Review of Systems Review of Systems Constitutional: Denies: see HPI. Exam & Diagnostic Data Last 24 Hrs of Vital Signs/I&O Vital Signs Date Time Temp Pulse Resp B/P B/P Pulse O2 O2 Flow FiO2 Mean Ox Delivery Rate 05/14 1935 97.6 68 18 132/58 97 Nasal 3.0L Cannula 05/14 1822 97.8 68 19 129/62 96 Nasal 2.0L Cannula 05/14 1728 98.5 64 18 138/65 98 Nasal 2.5L Cannula 05/14 1417 98.1 79 20 126/58 95 Nasal 2.0L Cannula 05/14 1200 Nasal 3.0L Cannula 05/14 1141 98.1 62 21 120/56 97 Nasal 3.0L Cannula 05/14 1138 90 Room Air Intake & Output 05/14 1600 05/14 0800 05/14 0000 Intake Total Output Total 450 Balance -450 Output, Urine 450 Physical Exam General Appearance Alert, Oriented X3, Cooperative, Confused; conversating abnormal sentences about pushing a button and extreme concern about color of urination HEENT PERRLA, EOMI, Mucous Membr. moist/pink Neck Supple, No JVD Cardiovascular Regular Rate, Normal S1, Normal S2 Lungs Bilateral crackles at lung bases Abdomen suprapubic tenderness; normal bowel sounds; nondistended Neurological Normal Speech, Strength at 5/5 X4 Ext, Normal Tone, Sensation Intact, Cranial Nerves 3-12 NL, Reflexes 2+ Extremities No peripheral edema Vascular Normal Pulses, Pulses Symmetrical Last 24 Hrs of Labs/Evens: Laboratory Tests 05/14/18 1517: Lactic Acid 1.7 05/14/18 1255: Urine Osmolality 413 05/14/18 1255: Urinalysis LIGHT H, Urine Color YEL, Urine Clarity CLEAR, Urine pH 6.5, Ur Specific [place] 1.015, Urine Protein TRACE H, Urine Ketones NEG, Urine Nitrite NEG, Urine Bilirubin NEG, Urine Urobilinogen 0.2, Ur Leukocyte Esterase NEG, Ur Microscopic SEDIMENT EXAMINED, Urine RBC 1-3, Urine WBC RARE, Ur Epithelial Cells OCCAS, Urine Bacteria RARE H, Urine Hemoglobin NEG, Urine Glucose NEG 05/14/18 1244: Anion Gap 13, Estimated GFR > 60, BUN/Creatinine Ratio 60.0 H, Glucose 245 H, Serum Osmolality 288, Lactic Acid 2.5 H, Calcium 8.6, Total Bilirubin 0.4, AST 15 L, ALT 23, Alkaline Phosphatase 67, Troponin I < 0.01, Udq-M-Xevmafmnopo Pept 72020 H, Total Protein 7.3, Albumin 3.2 L, Globulin 4.1, Albumin/Globulin Ratio 0.8 L, CBC w Diff MAN DIFF ORDERED, RBC 3.42 L, MCV 74.4 L, MCH 23.6 L , MCHC 31.8 L, RDW 20.2 H, MPV 8.3, Gran % 89.4 H, Lymphocytes % 1.9 L, Monocytes % 8.6, Eosinophils % 0.1, Basophils % 0, Absolute Granulocytes 8.4 H, Segmented Neutrophils 84 H, Band Neutrophils 4, Absolute Lymphocytes 0.2 L, Lymphocytes 2 L, Monocytes 9, Absolute Monocytes 0.8 H, Absolute Eosinophils 0 , Basophils 1, Absolute Basophils 0, Platelet Estimate ADEQUATE, Polychromasia 1 +, Hypochromic-Microcytic 3+, Anisocytosis 1+, Microcytic Cells 1+ Microbiology 05/14 1255 URINE ROUT: Urine Culture - RECD Diagnostic Data EKG Results Atrial ventricular dual paced complexes; RBB; rate of 68; QTC prolonged to 515 CXR Results Cardiomegaly with mild CHF and bilateral pleural effusions Other Results CT Chest: no evidence of pulmonary emboli. Marked underlying pulmonary diseaes which is all stable. Bialteral unchanged pleural effusions. VTE: Negative Head CT: Limited exam due to motion. 1. no acute intracranial process 2. changes of ischemic small vessel disease and volume loss Assessment/Plan Assessment: Patient is an 78 year old male with pmh of COPD on 2L oxygen at home, CAD s/p CABG, heart failure with reduced ejection fraction 30-35%, PAD, DM2, brought in by for shortness of breath since last night and increasing confusion/ hallucinations in the past month. Recently discharge from on 05/06/18 after treated for CHF exacerbation. Vitals on admission: 98.1, 62 pulse rate, 21 respiratory rate, 120/56, 97% on nasal cannula 3 L Pertinent Labs: UA negative for infection Lactic acid 2.5 high AST 15 ProBNP 20,500 Imaging: HEAD CT: IMPRESSION: Limited exam due to motion. 1. No acute intracranial process. 2. Changes of ischemic small vessel disease and volume loss. CT CHEST: IMPRESSION: No evidence of pulmonary emboli. Marked underlying pulmonary disease which is all stable as described above. Bilateral unchanged pleural effusions. VTE: Negative CXR: IMPRESSION: Cardiomegaly with mild CHF and bilateral pleural effusions. Problem List: 1. CHF Exacerbation 2. Altered Mental Status 3. Urological Symptoms CHF EXACERBATION Patient has a history of CHF exacerbation and recently admitted and discharged 8 days ago. ECHO done 05/02/18 demonstrated ejection fraction: 30-35%. Patient presented with bilateral crackles in lower lung bases on admission and shortness of breath. CXR demonstrated cardiomegaly and mild CHF. CTA demonstrated bibasilar atelectasis and diffuse groundglass changes with bilateral pleural effusions right greater than left. * Monitor patient on telemetry unit * Daily intake/output monitor * Daily weights * IV diuretics * Consult cardiology ALTERED MENTAL STATUS Patient has a history of altered mental changes recently as well as on prior admission. Further information may be obtained from his . Although as per history, states he has had increasing confusion and visual hallucinations in the past month. During assesment, patient repeatedly noted on the subject of continuous "counting" and "pressing a button." This altered mental status may be multifactorial given recent ischemic small vessel diseaes in the brain, hyponatremia, urinary symptoms, chf exacerbation and polypharmacy that may exacerbate mental status in the elderly. * Neuro checks q4 hours * Urine Culture UROLOGICAL SYMPTOMS Patient complains of change in color of urine to a darker tone. Increased urinary urgency, hesitency and dysuria. Tenderness of palpation of suprapubic area. Symptoms could be releated to patients history of BPH for which he takes tamsulosin and finasteride. * Bladder scan to evaluate for any residual volume * conitnue home meds tamsulosin and finasteride * Urine culture --Continue low dose NovoLog sliding scale for DM --Accu-Checks daily ---Continue home meds (tamsulosin, Spiriva, finasteride, omeprazole, magnesium oxide, losartan, ranolazine, aspirin, melatonin, plavix, carvedilol, atorvastatin, albuterol) Code Status: Full Code DVT PPx: Lovenox Diet: CHF diet; mechanical ground and thin liquids As Ranked By This Provider Problem List: 1. CHF (congestive heart failure) 2. COPD (chronic obstructive pulmonary disease) Core Measures/Misc (07/14) Acute Coronary Syndrome ACS Diagnosis: No Congestive Heart Failure Congestive Heart Failure Diagnosis Yes Last Known EF % 30 Cerebrovascular Accident CVA/TIA Diagnosis: No VTE (View Protocol) VTE Risk Factors Age>40 No Mechanical VTE Prophylaxis d/t N/A MechProphylax Ordered No VTE Pharm Prophylaxis d/t NA PharmProphylax ordered Sepsis (View protocol) Sepsis Present: No If YES complete Sepsis Event Note If YES complete Sepsis Event Note Tiffanie Morales 05/14/18 1633: Core Measures/Misc (07/14) Sepsis (View protocol) If YES complete Sepsis Event Note If YES complete Sepsis Event Note Resident Review Statement Other Findings: Patient is 78-year-old male with past medical history of hypertension, coronary artery disease status post CABG, heart failure with reduced ejection fraction of 30-35%, peripheral artery disease, diabetes mellitus type 2, COPD on 2 L oxygen at home, on mechanical ground diet, was brought in by from home for shortness of breath since last night and increased confusion/visual hallucinations since past month. Patient was recently discharged from hospital on 05/06/18 after being treated for CHF exacerbation. At the time of discharge, he was advised to take Bumetanide 1 mg twice a day, patient states that he has been compliant with his medications, and was doing well. He also followed up with [facility] intern [facility], Dr. Rowell, post discharge and states that slight adjustment was made in his medications that he cannot recall. Patient reports that he was in his usual state of health yesterday morning, when he became confused and started counting repeatedly. At that time, he also reports that he was asking for some button that he is unsure of now. Patient states that during that episode of confusion, he also became short of breath and was grasping for air. Later that day, patient noticed that it was difficult for him to walk to the bathroom, and reports of burning micturition, hesitancy and urgency. Patient states that he has had multiple UTI episodes in the past with similar symptoms. Review of systems negative for headache/chest pain/difficulty breathing/ abdominal discomfort/pain in the legs. Tried to reach twice on both her numbers to obtain further history, Mr. Guido states that the will be here later today so will check again. Labs and vitals as above On physical exam, patient has bilateral crackles at lung bases, no peripheral edema, is alert oriented 3, abdominal tenderness in suprapubic region. Normal sinus rhythm, S1/S2 normal. Normal neurological exam. Imaging CT head shows ischemic small vascular disease and volume loss, CTA shows bibasilar atelectasis and diffuse groundglass changes with bilateral pleural effusions right greater than left which are old Chest x-ray shows cardiomegaly with mild CHF Assessment and plan We will monitor the patient on telemetry floor for CHF exacerbation. Daily intake/output monitor, daily weights, IV diuretics, cardiology consult. Echo was recently done on 05/02/18 shows ejection fraction 30-35%. Patient's confusion could be multifactorial, could be due to ischemic small vessel disease in the brain versus hyponatremia versus acute delirium due to chronic diseases and polypharmacy. Neuro checks every 4 hours. Low dose NovoLog sliding scale for diabetes with fingersticks 3 times a day before meals/at bedtime We'll continue the rest of his home meds including tamsulosin, Spiriva, finasteride, omeprazole, magnesium oxide, losartan, ranolazine, aspirin, melatonin, Plavix, carvedilol, atorvastatin, albuterol. TRC nebs as needed. Patient's urological symptoms could be due to his BPH, will obtain bladder scan and evaluate for any residual volume. DVT prophylaxis Lovenox Patient is full code Diet: CHF diet mechanical ground and thin liquids. Israel Wheeler MD 05/14/18 2135: Core Measures/Misc (07/14) Sepsis (View protocol) If YES complete Sepsis Event Note If YES complete Sepsis Event Note Attending MD Review Statement Attending Statement Attending MD Statement: examined this patient, discuss w/resident/PA/TEXTILE COLORIST FORMULATOR, agreed w/resident/PA/TEXTILE COLORIST FORMULATOR, reviewed EMR data (avail), reviewed images, amended to note Attending Assessment/Plan: The patient is an 78 yo male with h/o COPD (chronic oxygen 2L/min), HTN, CAD (s/ p CABG), reduced EF CHF (30-35%), s/p bilat CEA, bladder ca, DM2, PVD, UTI's who was recently discharged from [facility] 8 days ago after being treated for CHF exacerbation who presented in the ED brought by his maninder stated that he has had increased confusion, visual hallucinations and other odd behaviors. This had been ongoing for a few weeks. The patient also endorsed 1 day of increased dyspnea. He also observed some dysuria, urgency and hesitancy with dark urine. His appetite has been diminished. His primary biology intern is at the [facility] in [place] (Dr. Rowell) and PCP is Dr. Ace Marie at the [facility]. Physical Exam: VS: T 98.1, P 62, R 21, BP 120/56, PO 90% RA-97% 3L HEENT: eyes- PERRLA, EOMI merary- moist mucosa Neck: no JVD/bruits Chest: + bibasilar rales Cor: RRR nl S1, S2 Abd: BS+, soft, NT Ext: no edema, pulses 1+ symmetric Neuro: alert & oriented at time of my exam, motor/sensory/cerebellar intact ( gait not tested) Labs/Tests -as above Impression/Plan: #Acute on Chronic Reduce Ejection Fraction CHF- BNP elevated and 1 day h/o increased dyspnea. Plan: Bring in as OBServation patient on Telemetry service. Cardiology Consult. IV Lasix, daily weights, I/O's as per CHF protocol. 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 #Altered Mental Status- The patient has some h/o this with past admissions, however per family has been increasing over the last month. At the time of my exam he was alert & oriented. May be multifactorial with some relationship to hyponatremia, dementia, CHF, etc. Plan: Agree with q4h neuro checks and follow mental status. Avoid sedating or anti-cholinergic medications. May benefit from psychiatry or neurology input. Correct sodium. #Hyponatremia- Na 131 with patient baseline 138-139. May be related to diuretics. Plan: Follow-up sodium in morning. May need Nephrology input. #Urinary Symptoms- hesitancy, frequency, etc. - possibly secondary to BPH vs infection. Plan: Continue Tamsulosin/Finasteride. Check Urine C&S. #Chronic Hypoxic Respiratory Failure- on 2L/min nasal oxygen at home. Plan: Monitor pulse ox with treatment of CHF. Continue nasal oxygen. #COPD- no wheeze at present. Plan: Continue Albuterol. #DM2- on Metformin. Plan: Follow glucoscans and sliding scale insulin. Hold Metformin. #Hyperlipidemia- on Atorvastatin. Plan: Continue Atorvastatin. #Chronic Anemia- has been evaluated before. H/H slightly decreased. Plan: Will review prior workup. Continue iron supplement. #Neuropathy- on Gabapentin. Plan: Continue Gabapentin. #HTN- BP as above. Losartan may contribute to hyponatremia, however has been on for a while. Plan: Continue Carvedilol/Losartan. #PVD- on Plavix, etc. Plan: Continue Plavix. #GERD- on Omeprazole. Plan: Continue Omeprazole.
[2018-05-14 19:35] VITALS: BP 132/58
[2018-05-14 23:06] VITALS: BP 128/60
[2018-05-15 04:22] LABS: ABSOLUTE BASOPHIL COUNT 0 /CUMM (0.0-0.2); ABSOLUTE EOSINOPHIL COUNT 0.1 /CUMM (0.0-0.7); ABSOLUTE GRANULOCYTE CT 6.7 /CUMM (1.4-6.5); ABSOLUTE LYMPH COUNT 0.3 /CUMM (1.2-3.4); ABSOLUTE MONOCYTE COUNT 0.9 /CUMM (0.10-0.60); BASOPHIL % 0.1 % (0.0-2.0); EOSINOPHIL % 0.8 % (0-5); GRANULOCYTE % 83.2 % (42.2-75.2); HEMATOCRIT 25.5 % (42-52); MEAN CORPUSCULAR HGB 23.8 PG (27.0-31.0); MEAN CORPUSCULAR HGB CONC 32.1 G/DL (33.0-37.0); MEAN CORPUSCULAR VOLUME 74.1 FL (80.0-94.0); MEAN PLATELET VOLUME 8.2 FL (7.4-10.4); PLATELET COUNT 297 /CUMM (130-400); RBC DISTRIBUTION WIDTH 20.8 % (11.5-14.5); RED BLOOD CELL CT 3.45 /CUMM (4.70-6.10)
[2018-05-15 06:53] VITALS: BP 130/62
--- NOTE | 2018-05-15 06:58 | PN-Observation ---
Allen Sanchez 05/15/18 0658: Observation Note Observation Note _ I have personally examined CAITY BELL. him disposition is uncertain at this time. Before a determination can be made, he requires continued observation for the following reasons; CHF exacerbation leading to shortness of breath and altered mental status on admission. Assessment/Plan Medical Assessment: Mr. Jones is a 78-year-old male with past medical history of COPD on 2 L home oxygen, Ms., CHF with previous EF 30-35%, bilateral endarterectomy, bladder cancer, frequent UTIs, type 2 diabetes, PAD recently discharged from [facility] ED 8 days ago for CHF exacerbation. Patient came into the [facility] ED for increasing shortness of breath and altered mental status as reported by his . Patient noted to have hallucinations and saying statements that do not make sense such as the need to keep counting, and the need to push a button. In addition patient noted to have urinary urgency, hesitancy and dysuria. Vital signs on admission were stable. Patient on 3 L nasal cannula 97%. EKG: Atrial ventricular dual paced complexes, right bundle branch block, rate of 68, QTC prolonged at 550 Troponins negative 3 Sodium on admission: 133; creatinine 0.6 Lactic acid: 2.5; 1.7 ProBNP: 20,500 Chest x-ray: Cardiomegaly with mild CHF and bilateral pleural effusions CT chest: No evidence of pulmonary emboli. Mild underlying pulmonary disease which is also stable. Bilateral unchanged pleural effusions. Head CT: Limited due to motion. No acute intracranial process. Changes of ischemic small vessel disease of iron loss. VTE: Negative Problem list: 1. CHF exacerbation 2. Altered mental status 3. Urological symptoms Problem List: 1. CHF (congestive heart failure) 2. BPH (benign prostatic hyperplasia) Plan: CHF exacerbation * Previous EF demonstrates 30-35% EF with left ventricular dysfunction. Recent discharge from [facility] after treatment for CHF exacerbation. * 1 dose of 20 mg IV Lasix was given in the ED on admission. Will start patient on 40 mg IV Lasix twice daily. Continue to monitor vitals and strict ins and outs. * Follow-up with Dr. Jones of cardiology service. * Patient currently on 3 L nasal cannula 97%. Normally requires 2 L at home for COPD. Altered mental status * Patient's altered mental status is improved. He is alert and oriented to person, place and time. Patient denies any recent hallucinations. * Will hold off on psych and neuro consult for now. * Patient has a baseline hyponatremia around 131-133. Urological symptoms * Patient reports increased diuresis this morning. Denies any significant dysuria or hesitancy. We will continue to monitor patient for urological symptoms. * Urine culture shows no growth after day 1. * Patient is afebrile, with no white count. * BUN and creatinine stable. BUN 27, creatinine 0.6. CODE STATUS: Full code DVT prophylaxis: Lovenox Diet: CHF diet: Mechanical grounds and then liquid DVT/Prophylaxis: mechanical, pharmacological Consulting Request: Consulting Specialty: Cardiology Patient's Concerns: Patient no longer has shortness of breath. Subjective Follow-up For: Systolic dysfunctionCHF exacerbation Altered mental statusresolving Urological symptoms Tele-Events Since Last Visit: Pacing Subjective: Patient seen and examined at bedside this morning. Patient denies any chest pain, palpitations, shortness of breath today. He is on 3 L nasal cannula saturating at 97%. He continues to have lower lung base crackles. Patient is on ground and dependence for diet tolerating well. She did not show signs of altered mental status morning. Alert to person place and time. We will continue to monitor patient. Review of Systems Constitutional: Denies: see HPI. Objective Last 24 Hrs of Vital Signs/I&O Vital Signs Date Time Temp Pulse Resp B/P B/P Pulse O2 O2 Flow FiO2 Mean Ox Delivery Rate 05/15 1056 Nasal 2.0L Cannula 05/15 1052 94 Nasal 2.0L Cannula 05/15 0831 64 126/64 05/15 0829 64 126/64 05/15 0829 64 126/64 05/15 0828 64 126/64 05/15 0800 Nasal 3.0L Cannula 05/15 0653 97.8 64 18 130/62 98 Nasal 3.0L Cannula 05/15 0000 Nasal 3.0L Cannula 05/14 2328 76 128/60 05/14 2325 76 128/60 05/14 2306 97.8 76 18 128/60 97 Nasal 3.0L Cannula 05/14 1935 97.6 68 18 132/58 97 Nasal 3.0L Cannula 05/14 1822 97.8 68 19 129/62 96 Nasal 2.0L Cannula 05/14 1728 98.5 64 18 138/65 98 Nasal 2.5L Cannula 05/14 1417 98.1 79 20 126/58 95 Nasal 2.0L Cannula 05/14 1200 Nasal 3.0L Cannula 05/14 1141 98.1 62 21 120/56 97 Nasal 3.0L Cannula 05/14 1138 90 Room Air Intake & Output 05/15 1600 05/15 0800 05/15 0000 Intake Total Output Total 500 200 Balance -500 -200 Output, Urine 500 200 Patient 126 lb Weight Weight Bed scale Measurement Method Physical Exam General Appearance: Alert, Oriented X3, Cooperative, No Acute Distress HEENT: PERRLA, EOMI, Mucous Membr. moist/pink Cardiovascular: Regular Rate, Normal S1, Normal S2 Lungs: crackles in lower lung bases Abdomen: Normal Bowel Sounds, Soft, No Tenderness Neurological: Patients strength 4/5 in upper/lower extremities Sensations intact Gait unassessed Extremities: No Clubbing, No Cyanosis, No Edema Vascular: Normal Pulses, Pulses Symmetrical Current Medications: Current Medications Sig/Damon Start time Last Medication Dose Route Stop Time Status Admin Acetaminophen 500 MG Q8P PRN 05/14 174 AC PO Albuterol Sulfate 3 ML Q4P PRN 05/15 1000 AC 05/15 INH 0952 Albuterol Sulfate 2 PUF Q4-6 PRN PRN 05/14 174 AC INH Aspirin Buffered 81 MG DAILY 05/14 1745 AC 05/15 PO 0829 Atorvastatin Calcium 40 MG 1700 05/14 1746 AC 05/14 PO 2326 Carvedilol 25 MG BID 05/14 2100 AC 05/15 PO 0829 Clopidogrel Bisulfate 75 MG DAILY 05/14 1746 AC 05/15 PO 0828 Enoxaparin Sodium 40 MG DAILY 05/15 0900 AC 05/15 SC 0831 Finasteride 5 MG DAILY 05/14 1746 AC 05/15 PO 0828 Furosemide 40 MG .STK-MED ONE 05/15 1036 DC IV 05/15 1037 Furosemide 40 MG 7:30 AM, & 4:30 PM 05/15 0915 AC 05/15 IV 0930 Furosemide 0 .STK-MED ONE 05/14 1614 DC IV Furosemide 20 MG ONCE ONE 05/14 1530 DC 05/14 IV 05/14 1531 1618 Gabapentin 100 MG TID 05/14 2100 AC 05/15 PO 0828 Insulin Aspart 0 TIDAC 05/15 800 AC SC Losartan Potassium 25 MG DAILY 05/15 900 AC 05/15 PO 0829 Magnesium Oxide 400 MG DAILY 05/15 900 AC 05/15 PO 0829 Melatonin 6 MG QPM 05/14 2100 AC 05/14 PO 2326 Omeprazole 20 MG DAILY AC 05/15 700 AC 05/15 PO 0524 Polyethylene Glycol 17 GM DAILY NEEDED PRN 05/14 1800 AC PO Ranolazine 1,000 MG BID 05/14 2100 AC 05/15 PO 0828 Senna 374 MG AT BEDTIME NEED.. 05/14 1800 AC 05/15 PO 0832 Spironolactone 25 MG DAILY 05/15 900 AC 05/15 PO 0829 Tamsulosin HCl 0.4 MG DAILY 05/15 900 AC 05/15 PO 0831 Tiotropium [place] 1 PUF DAILY 05/15 900 AC 05/15 INH 0833 Last 24 Hrs of Labs/Mics: Laboratory Tests 05/15/18 0340: Troponin I < 0.01 05/15/18 0340: Anion Gap 10, Estimated GFR > 60, BUN/Creatinine Ratio 45.0 H, CBC w Diff NO MAN DIFF REQ, RBC 3.45 L, MCV 74.1 L, MCH 23.8 L, MCHC 32.1 L, RDW 20.8 H, MPV 8.2, Gran % 83.2 H, Lymphocytes % 4.2 L, Monocytes % 11.7 H, Eosinophils % 0.8, Basophils % 0.1, Absolute Granulocytes 6.7 H, Absolute Lymphocytes 0.3 L, Absolute Monocytes 0.9 H, Absolute Eosinophils 0.1, Absolute Basophils 0 05/14/18 2230: Troponin I < 0.01 05/14/18 1517: Lactic Acid 1.7 05/14/18 1255: Urine Osmolality 413 05/14/18 1255: Urinalysis LIGHT H, Urine Color YEL, Urine Clarity CLEAR, Urine pH 6.5, Ur Specific [place] 1.015, Urine Protein TRACE H, Urine Ketones NEG, Urine Nitrite NEG, Urine Bilirubin NEG, Urine Urobilinogen 0.2, Ur Leukocyte Esterase NEG, Ur Microscopic SEDIMENT EXAMINED, Urine RBC 1-3, Urine WBC RARE, Ur Epithelial Cells OCCAS, Urine Bacteria RARE H, Urine Hemoglobin NEG, Urine Glucose NEG 05/14/18 1244: Anion Gap 13, Estimated GFR > 60, BUN/Creatinine Ratio 60.0 H, Glucose 245 H, Serum Osmolality 288, Lactic Acid 2.5 H, Calcium 8.6, Total Bilirubin 0.4, AST 15 L, ALT 23, Alkaline Phosphatase 67, Troponin I < 0.01, [id number] Pept 45517 H, Total Protein 7.3, Albumin 3.2 L, Globulin 4.1, Albumin/Globulin Ratio 0.8 L, CBC w Diff MAN DIFF ORDERED, RBC 3.42 L, MCV 74.4 L, MCH 23.6 L , MCHC 31.8 L, RDW 20.2 H, MPV 8.3, Gran % 89.4 H, Lymphocytes % 1.9 L, Monocytes % 8.6, Eosinophils % 0.1, Basophils % 0, Absolute Granulocytes 8.4 H, Segmented Neutrophils 84 H, Band Neutrophils 4, Absolute Lymphocytes 0.2 L, Lymphocytes 2 L, Monocytes 9, Absolute Monocytes 0.8 H, Absolute Eosinophils 0 , Basophils 1, Absolute Basophils 0, Platelet Estimate ADEQUATE, Polychromasia 1 +, Hypochromic-Microcytic 3+, Anisocytosis 1+, Microcytic Cells 1+ Microbiology 05/14 1255 URINE ROUT: Urine Culture - RES Mayra Cisnerostom 05/15/18 1424: Attending MD Review Statement Attending Statement Attending MD Statement: examined this patient, discuss w/resident/PA/MEDICAL ASSISTING PROGRAM DIRECTOR, agreed w/resident/PA/MEDICAL ASSISTING PROGRAM DIRECTOR, reviewed EMR data (avail), discussed w/nursing, discussed w/ case mgmt Attending Assessment/Plan: acute on chronic systolic chf and pulm htn with acute on chronic resp failure on home oxygen- presented with sob. started on iv lasix 40mg po bid, crackles on lung exam b/l. will get cardio consult. will f/u on their recommendations. d/w pt the care plan.
--- NOTE | 2018-05-15 08:22 | PN- Student ---
Subjective Subjective: Pt seen and examined this morning. He denies difficulty breathing or SOB but continues to have dysuria with burning though it has improved. Pt describes increased ease of urination without hesitation and with increased frequency since admission. He does not feel confused. He is tolerating a regular diet, though he ate only little because he is not feeling hungry. Pt denies chest pain , palpitations, abdominal pain, leg pain, headaches. Objective Objective: Vitals 97.8 64bpm RR18 130/62 98% on 3L O2 via nasal canula Tele: single and dual pacing 64-75bpm PE Gen: NAD, resting comfortably, AOx 3 Psych: appropriately conversing, easily understands questions, no visual hallucinations HEENT: EOM intact, PEERLA CV: RRR, S1 and S2 Pulm: CTA BL, no crackles or rhonchi Abd: +BS, soft, NTND Ext: warm and well perfused, no edema Results Results: Laboratory Tests 05/15/18 0340: Troponin I < 0.01 05/15/18 0340: Anion Gap 10, Estimated GFR > 60, BUN/Creatinine Ratio 45.0 H, CBC w Diff NO MAN DIFF REQ, RBC 3.45 L, MCV 74.1 L, MCH 23.8 L, MCHC 32.1 L, RDW 20.8 H, MPV 8.2, Gran % 83.2 H, Lymphocytes % 4.2 L, Monocytes % 11.7 H, Eosinophils % 0.8, Basophils % 0.1, Absolute Granulocytes 6.7 H, Absolute Lymphocytes 0.3 L, Absolute Monocytes 0.9 H, Absolute Eosinophils 0.1, Absolute Basophils 0 05/14/18 2230: Troponin I < 0.01 05/14/18 1517: Lactic Acid 1.7 Assessment/Plan Assessment: 78YOM with hx of COPD on 2L O2 at home, HTN, CAD post CABG, CHF with previous EF of 30-35%, BL endartarectomy, bladder cancer, frequent UTIs, Type 2 DM, and PAD who was discharged from [facility] 9 days ago for CHF exascerbation secondary to ischemic CM with new medications of bumetanide. Pt presented to the ED with difficulty catching his breath and 1 day hx of neurological changes including confusion and visual hallucinations. These symptoms had been happening intermittently for the past few weeks including during his prior stay at [place] but had been worsening recently. His labs showed microcytic anemia, a CT of the head showed no acute intracranial process, CT of the chest showed no evidence of PE and confirmed BL chronic pulmonary disease with unchanged BL pleural effusions, while CXR showed miled CM with worsened venous congestion than on 05/04 and bibasilar atelectasis. 1. CHF exascerbation * Pt has hx of CHF with LV dysfunction and EF of 30-35%. He was recently discharged from [facility] after tx for CHF exascerbation secondary to ischemic CM. * One 20mg dose IV lasix given in the ED. Pt reports increased diuresis and no episodes of SOB or difficulty breathing. * CXR 05/14/18 shows mild CM with upper zone redistribution and central venous congestion consistent with elevated LVEDP and mild CHF which is worse than that noted on prior CXR 05/04/18. * At this time, pt can accomodate aggressive diuresis as he is showing no physical signs of distress and is adequately hydrated. We will increase IV lasix to 40mg BID. * Await cardio consult. 2. Dysuria * Continue monitoring for signs of clinical improvement in symptoms such as decreased burning on urination and decreased altered mental status. * No abx for UTI indicated at this time based on UA and clinical improvement. 3. Neurological changes * Pt admitted to hospital yesterday with intermittent altered mental status. * Likely d/t pts hypoxia secondary to CHF, though potential UTI may be contributing as well. Pt's mental status continues to be stable. 4. Bibasilar atelectasis * Found on CXR yesterday, the pt's bibasilar atelectasis likely d/t his CHF and BL chronic pulmonary effusions. 5. Microcytic anemia * Pt found to be admitted with microcytic anemia though this is consistent with baseline. Can continue to monitor with daily CBC. 6. COPD * Stable. The dyspnea with which patient was admitted is likely cardiac in origin. Will continue work with respiratory therapy and continue with albuterol nebs PRN. 7. Type 2 DM * Stable. Continue with novolog with sliding scale management. 8. PAD * Stable. Diet: CHF Diet DVT Prophy: ALPS Code: Full
[2018-05-15 14:44] VITALS: BP 112/62
--- NOTE | 2018-05-15 15:25 | Cons- Cardiology ---
General Information and HPI Consulting Request Date of Consult: 05/15/18 Requested By: Blayne DEE,Malcolm Gilbert Reason for Consult: Shortness of breath with evidence of acute on chronic HFrEF Source of Information: patient, old records Exam Limitations: no limitations History of Present Illness: Mr. Mejia is a pleasant 78-year-old male who is well-known to me. His past medical history is remarkable for COPD on home oxygen, hypertension, coronary artery disease, status post bypass surgery, congestive heart failure with a previous ejection fraction of 30-35%. Known carotid artery disease, status post bilateral endarterectomy, bladder cancer, type 2 diabetes, peripheral arterial disease, etc. Patient was recently discharged from [facility] about a week ago after a color technician for exacerbation of heart failure related to his ischemic cardiac myopathy. The patient is now readmitted to the hospital after presenting to the emergency room with his . According to the , the patient was noted to have increasing confusion and mental status name changes with reported hallucinations. There may have also been some shortness of breath as well. However, today, the patient denies any new respiratory symptoms to me. No other cardiac symptoms were noted. Otherwise, from the point of view of functional history, the patient is not helpful to me at the moment. \ Allergies/Medications Allergies: Coded Allergies: No Known Allergies (02/16/17) Home Med List: Acetaminophen (Tylenol Extra Strength) 500 MG TABLET 2 TAB PO PRN PAIN ( Reported) Albuterol Sulfate (Proair Hfa) 90 MCG HFA.AER.AD 2 PUF INH Q4-6 PRN PRN SOB ( Reported) Aspirin (Ecotrin*) 81 MG TABLET.DR 1 TAB PO DAILY HEART (Reported) Atorvastatin Calcium (Lipitor) 40 MG TABLET 1 TAB PO DAILY heart (Reported) Beta-Carotene (Beta Carotene) 10,000 UNIT CAPSULE 1 CAP PO DAILY SUPPLEMENT ( Reported) Bumetanide 1 MG TABLET 1 TAB PO BID diuretic Carvedilol 25 MG TABLET 1 TAB PO BID HEART/BP (Reported) Clopidogrel Bisulfate (Plavix) 75 MG TABLET 1 TAB PO DAILY BLOOD THINNER ( Reported) Ferrous Sulfate 325 MG (65 MG IRON) TABLET.DR 325 MG PO BID ANEMIA . Finasteride 5 MG TABLET 1 TAB PO DAILY PROSTATE (Reported) Gabapentin 100 MG CAPSULE 100 MG PO TID neuropathy Losartan Potassium (Cozaar) 25 MG TABLET 1 TAB PO DAILY HTN (Reported) Magnesium Oxide (Magnesium) 400 MG CAPSULE 1 CAP PO DAILY supplement Melatonin 3 MG TABLET 6 MG PO QPM SUPPLEMENT (Reported) Metformin HCl 500 MG TABLET 1 TAB PO BID DM (Reported) Multivit-Min/FA/Lycopen/Lutein (Centrum Silver Men Tablet) 300 MCG-600 MCG-300 MCG TABLET 1 TAB PO DAILY SUPPLEMENT (Reported) Omeprazole 20 MG TABLET.DR 1 TAB PO DAILY AC GI (Reported) Ranolazine (Ranexa) 500 MG TAB.ER.12H 2 TAB PO BID ANGINA/CHEST PAIN ( Reported) Spironolactone 25 MG TABLET 1 TAB PO DAILY DIURETIC (Reported) Tamsulosin HCl (Flomax) 0.4 MG CAP.ER.24H 1 CAP PO DAILY PROSTATE (Reported) Tiotropium Butler (Spiriva) 18 MCG CAP.W.DEV 1 PUF INH DAILY lung Ubidecarenone (Co Q-10) 200 MG CAPSULE 1 TAB PO DAILY SUPPLEMENT (Reported) Current Medications: Current Medications Sig/Damon Start time Last Medication Dose Route Stop Time Status Admin Acetaminophen 500 MG Q8P PRN 05/14 1745 AC PO Albuterol Sulfate 3 ML Q4P PRN 05/15 1000 AC 05/15 INH 0952 Albuterol Sulfate 2 PUF Q4-6 PRN PRN 05/14 1745 AC INH Aspirin Buffered 81 MG DAILY 05/14 1745 AC 05/15 PO 0829 Atorvastatin Calcium 40 MG 1700 05/14 1746 AC 05/14 PO 2326 Carvedilol 25 MG BID 05/14 2100 AC 05/15 PO 0829 Clopidogrel Bisulfate 75 MG DAILY 05/14 1746 AC 05/15 PO 0828 Enoxaparin Sodium 40 MG DAILY 05/15 0900 AC 05/15 SC 0831 Finasteride 5 MG DAILY 05/14 1746 AC 05/15 PO 0828 Furosemide 40 MG .STK-MED ONE 05/15 1036 DC IV 05/15 1037 Furosemide 40 MG 7:30 AM, & 4:30 PM 05/15 0915 05/15 IV 0930 Furosemide 0 .STK-MED ONE 05/14 1614 DC IV Furosemide 20 MG ONCE ONE 05/14 1530 DC 05/14 IV 05/14 1531 1618 Gabapentin 100 MG TID 05/14 2100 AC 05/15 PO 1215 Insulin Aspart 0 TIDAC 05/15 0800 AC 05/15 SC 1215 Losartan Potassium 25 MG DAILY 05/15 09 AC 05/15 PO 0829 Magnesium Oxide 400 MG DAILY 05/15 09 AC 05/15 PO 0829 Melatonin 6 MG QPM 05/14 2100 AC 05/14 PO 2326 Omeprazole 20 MG DAILY AC 05/15 07 AC 05/15 PO 0524 Polyethylene Glycol 17 GM DAILY NEEDED PRN 05/14 1800 AC PO Ranolazine 1,000 MG BID 05/14 2100 AC 05/15 PO 0828 Senna 374 MG AT BEDTIME NEED.. 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 Family History Relations & Conditions If Any: FATHER Myocardial infarction MOTHER Myocardial infarction Psychosocial History Who Do You Live With? spouse Services at Home: None Primary Language: Slovenian Smoking Status: Unknown If Ever Smoked ETOH Use: denies use Illicit Drug Use: denies illicit drug use Functional Ability ADLs Independent: dressing, eating, toileting, bathing. Ambulation: cane IADLs Independent: shopping, housework, finances, food prep, telephone, transportation , medication admin. Exam & Diagnostic Data Vital Signs and I&O Vital Signs Date Time Temp Pulse Resp B/P B/P Pulse O2 O2 Flow FiO2 Mean Ox Delivery Rate 05/15 1444 97.7 58 18 112/62 100 Room Air 05/15 1056 Nasal 2.0L Cannula 05/15 1052 94 Nasal 2.0L Cannula 05/15 0831 64 126/64 05/15 0829 64 126/64 05/15 0829 64 126/64 05/15 0828 64 126/64 05/15 0800 Nasal 3.0L Cannula 05/15 0653 97.8 64 18 130/62 98 Nasal 3.0L Cannula 05/15 0000 Nasal 3.0L Cannula 05/14 2328 76 128/60 05/14 2325 76 128/60 05/14 2306 97.8 76 18 128/60 97 Nasal 3.0L Cannula 05/14 1935 97.6 68 18 132/58 97 Nasal 3.0L Cannula 05/14 1822 97.8 68 19 129/62 96 Nasal 2.0L Cannula 05/14 1728 98.5 64 18 138/65 98 Nasal 2.5L Cannula Intake & Output 05/15 0800 05/15 0000 05/14 1600 05/14 0800 05/14 0000 Intake Total 360 Output Total 250 500 200 450 Balance 110 -500 -200 -450 Intake, Oral 360 Output, Urine 250 500 200 450 Patient 126 lb Weight Weight Bed scale Measurement Method Physical Exam: General Appearance Alert, Oriented X3, Cooperative, Confused; conversating abnormal sentences about pushing a button and extreme concern about color of urination HEENT PERRLA, EOMI, Mucous Membr. moist/pink Neck Supple, No JVD, carotids normal bilaterally Cardiovascular Regular Rate, Normal S1, Normal S2, 1/6 to 2/6 systolic murmur Lungs bibasilar crackle with scattered rhonchi Abdomen suprapubic tenderness; normal bowel sounds; nondistended Neurological Normal Speech, Strength at 5/5 X4 Ext, Normal Tone, Sensation Intact, Cranial Nerves 3-12 NL, Reflexes 2+ Extremities No significant peripheral edema Vascular Normal Pulses, Pulses Symmetrical Labs/Evens Results: Laboratory Tests 05/15 05/15 05/14 05/14 0340 0340 2230 1517 Chemistry Sodium (137 - 145 mmol/L) 133 L Potassium (3.5 - 5.1 mmol/L) 4.7 Chloride (98 - 107 mmol/L) 95 L Carbon Dioxide (22 - 30 mmol/L) 28 Anion Gap (5 - 16) 10 BUN (9 - 20 mg/dL) 27 H Creatinine (0.7 - 1.2 mg/dL) 0.6 L Estimated GFR (>60 ml/min) > 60 BUN/Creatinine Ratio (7 - 25 %) 45.0 H Lactic Acid (0.7 - 2.1 mmol/L) 1.7 Troponin I (<0.11 ng/ml) < 0.01 < 0.01 Hematology CBC w Diff NO MAN DIFF REQ WBC (4.8 - 10.8 /CUMM) 8.0 RBC (4.70 - 6.10 /CUMM) 3.45 L Hgb (14.0 - 18.0 G/DL) 8.2 L Hct (42 - 52 %) 25.5 L MCV (80.0 - 94.0 FL) 74.1 L MCH (27.0 - 31.0 PG) 23.8 L MCHC (33.0 - 37.0 G/DL) 32.1 L RDW (11.5 - 14.5 %) 20.8 H Plt Count (130 - 400 /CUMM) 297 MPV (7.4 - 10.4 FL) 8.2 Gran % (42.2 - 75.2 %) 83.2 H Lymphocytes % (20.5 - 51.1 %) 4.2 L Monocytes % (1.7 - 9.3 %) 11.7 H Eosinophils % (0 - 5 %) 0.8 Basophils % (0.0 - 2.0 %) 0.1 Absolute Granulocytes (1.4 - 6.5 /CUMM) 6.7 H Absolute Lymphocytes (1.2 - 3.4 /CUMM) 0.3 L Absolute Monocytes (0.10 - 0.60 /CUMM) 0.9 H Absolute Eosinophils (0.0 - 0.7 /CUMM) 0.1 Absolute Basophils (0.0 - 0.2 /CUMM) 0 05/14 05/14 1255 1255 Urines Urinalysis LIGHT H Urine Color (YEL,AMB,STR) YEL Urine Clarity (CLEAR) CLEAR Urine pH (5.0 - 8.0) 6.5 Ur Specific [place] (1.001 - 1.035) 1.015 Urine Protein (NEG,<30 MG/DL) TRACE H Urine Ketones (NEG) NEG Urine Nitrite (NEG) NEG Urine Bilirubin (NEG) NEG Urine Urobilinogen (0.1 - 1.0 EU/dl) 0.2 Ur Leukocyte Esterase (NEG) NEG Ur Microscopic SEDIMENT EXAMINED Urine RBC (0 - 5 /HPF) 1-3 Urine WBC (0 - 2 /HPF) RARE Ur Epithelial Cells (NONE,FEW) OCCAS Urine Bacteria (NEG/NONE) RARE H Urine Hemoglobin (NEG) NEG Urine Osmolality (300 - 1000 MOSM/KG) 413 Urine Glucose (N MG/DL) NEG 05/14 1244 Chemistry Sodium (137 - 145 mmol/L) 131 L Potassium (3.5 - 5.1 mmol/L) 5.3 H Chloride (98 - 107 mmol/L) 92 L Carbon Dioxide (22 - 30 mmol/L) 26 Anion Gap (5 - 16) 13 BUN (9 - 20 mg/dL) 36 H Creatinine (0.7 - 1.2 mg/dL) 0.6 L Estimated GFR (>60 ml/min) > 60 BUN/Creatinine Ratio (7 - 25 %) 60.0 H Glucose (65 - 99 mg/dL) 245 H Serum Osmolality (285 - 295 MOSM/KG) 288 Lactic Acid (0.7 - 2.1 mmol/L) 2.5 H Calcium (8.4 - 10.2 mg/dL) 8.6 Total Bilirubin (0.2 - 1.3 mg/dL) 0.4 AST (17 - 59 U/L) 15 L ALT (21 - 72 U/L) 23 Alkaline Phosphatase (< 127 U/L) 67 Troponin I (<0.11 ng/ml) < 0.01 Fqk-R-Goqdkpftdym Pept (<125 pg/mL) 08482 H Total Protein (6.3 - 8.2 g/dL) 7.3 Albumin (3.5 - 5.0 g/dL) 3.2 L Globulin (1.9 - 4.2 gm/dL) 4.1 Albumin/Globulin Ratio (1.1 - 2.2 %) 0.8 L Hematology CBC w Diff MAN DIFF ORDERED WBC (4.8 - 10.8 /CUMM) 9.4 RBC (4.70 - 6.10 /CUMM) 3.42 L Hgb (14.0 - 18.0 G/DL) 8.1 L Hct (42 - 52 %) 25.5 L MCV (80.0 - 94.0 FL) 74.4 L MCH (27.0 - 31.0 PG) 23.6 L MCHC (33.0 - 37.0 G/DL) 31.8 L RDW (11.5 - 14.5 %) 20.2 H Plt Count (130 - 400 /CUMM) 286 MPV (7.4 - 10.4 FL) 8.3 Gran % (42.2 - 75.2 %) 89.4 H Lymphocytes % (20.5 - 51.1 %) 1.9 L Monocytes % (1.7 - 9.3 %) 8.6 Eosinophils % (0 - 5 %) 0.1 Basophils % (0.0 - 2.0 %) 0 Absolute Granulocytes (1.4 - 6.5 /CUMM) 8.4 H Segmented Neutrophils (42.2 - 75.2 %) 84 H Band Neutrophils (0.0 - 5.0 %) 4 Absolute Lymphocytes (1.2 - 3.4 /CUMM) 0.2 L Lymphocytes (20.5 - 51.1 %) 2 L Monocytes (1.7 - 9.3 %) 9 Absolute Monocytes (0.10 - 0.60 /CUMM) 0.8 H Absolute Eosinophils (0.0 - 0.7 /CUMM) 0 Basophils (0.0 - 2.0 %) 1 Absolute Basophils (0.0 - 0.2 /CUMM) 0 Platelet Estimate (ADEQUATE) ADEQUATE Polychromasia 1+ Hypochromic-Microcytic 3+ Anisocytosis 1+ Microcytic Cells 1+ Diagnostic Data CXR Results FINDINGS: There is mild cardiomegaly. Upper zone redistribution and central venous congestion consistent with elevated left ventricular end-diastolic pressure and mild CHF. This finding appears worse than noted on the prior chest radiograph. Bilateral pleural effusions remain present about the same size as they were on 05/04/2018. Pacemaker is present with 3 leads. Bibasilar atelectasis is present. IMPRESSION: Cardiomegaly with mild CHF and bilateral pleural effusions. Assessment/Plan Assessment/Plan Assessment: 1. Increasing shortness of breath with evidence of acute on chronic HFrEF 2. Mental status changes with reported hallucinations 3. History of ischemic cardiomyopathy with known coronary disease, prior bypass surgery, and ejection fraction of 30-35% 4. Persistent microcytic anemia 5. Severe pulmonary hypertension on prior echocardiogram 6. Permanent pacemaker 7. COPD 8. Hyperlipidemia 9. Hypertension Recommendations: -Monitor on telemetry -Continue regular medications -Gentle diuresis with IV Lasix and close monitoring of intakes, outputs, daily weights, etc. -No need to repeat echocardiogram at the present time. -Monitor sodium closely on diuretic regimen -Try to obtain recent [facility] of [facility] to see if there are any changes to the patient's medication regimen. Consult Acknowledgment - Thank you for your consult request.
[2018-05-15 21:34] VITALS: BP 112/62
[2018-05-16 06:18] VITALS: BP 126/64
--- NOTE | 2018-05-16 07:04 | PN- Housestaff ---
Assessment/Plan Consulting Request: Consulting Specialty: Cardiology
--- NOTE | 2018-05-16 07:19 | PN- Student ---
Subjective Subjective: Pt is resting in bed this morning. He continues to complain of slight burning with urination that is improved compared to yesterday. He is also indicating that he is ready to and no longer "can live this way." He expressed gratitude for the fork lift mechanic's visit yesterday. Per nurse, he was uncomfortable throughout the night, feeling hot and sweaty. He is tolerating a cardiac diet, though consuming less than half of what he is brought. He is urinating independently. He is not ambulating. ROS: Pos for burning with urination, confusion. Neg for chest pain, SOB, palpitations, abdominal pain. Pt declined all physical exam this morning except for cardiac and pulmonary. Objective Objective: Vital Signs Result Date Time Pulse Ox 95 05/16 618 B/P 126/64 05/16 618 O2 Delivery Nasal Cannula 05/16 618 Temp 97.9 05/16 618 Pulse 68 05/16 06 Resp 22 05/16 618 O2 Flow Rate 3.0L 05/15 2134 Intake & Output 05/16 0000 05/15 1600 05/15 0800 Intake Total 254 360 Output Total 300 250 500 Balance -46 110 -500 Intake, IV 14 Intake, Oral 240 360 Output, Urine 300 250 500 Patient 125 lb Weight Weight Bed scale Measurement Method Tele: single and double pacing, rate WNL PE: Gen: no acute distress, AO to person and place but not to time or situation Psych: depressed affect, avoids eye contact CV: RR, S1 and S2, S3 apparent Pulm: rapid and shallow breaths, crackles diffusely in both lung bases, clear at apices BL Results Results: Laboratory Tests 05/16/18 0604: Sodium Pending, Potassium Pending, Chloride Pending, Carbon Dioxide Pending, Anion Gap Pending, BUN Pending, Creatinine Pending, BUN/Creatinine Ratio Pending , CBC w Diff Pending, WBC Pending, RBC Pending, Hgb Pending, Hct Pending, MCV Pending, MCH Pending, MCHC Pending, RDW Pending, Plt Count Pending, MPV Pending 05/15/18 0340: Troponin I < 0.01 05/15/18 0340: Anion Gap 10, Estimated GFR > 60, BUN/Creatinine Ratio 45.0 H, CBC w Diff NO MAN DIFF REQ, RBC 3.45 L, MCV 74.1 L, MCH 23.8 L, MCHC 32.1 L, RDW 20.8 H, MPV 8.2, Gran % 83.2 H, Lymphocytes % 4.2 L, Monocytes % 11.7 H, Eosinophils % 0.8, Basophils % 0.1, Absolute Granulocytes 6.7 H, Absolute Lymphocytes 0.3 L, Absolute Monocytes 0.9 H, Absolute Eosinophils 0.1, Absolute Basophils 0 05/14/18 2230: Troponin I < 0.01 05/14/18 1517: Lactic Acid 1.7 05/14/18 1255: Urine Osmolality 413 05/14/18 1255: Urinalysis LIGHT H, Urine Color YEL, Urine Clarity CLEAR, Urine pH 6.5, Ur Specific [place] 1.015, Urine Protein TRACE H, Urine Ketones NEG, Urine Nitrite NEG, Urine Bilirubin NEG, Urine Urobilinogen 0.2, Ur Leukocyte Esterase NEG, Ur Microscopic SEDIMENT EXAMINED, Urine RBC 1-3, Urine WBC RARE, Ur Epithelial Cells OCCAS, Urine Bacteria RARE H, Urine Hemoglobin NEG, Urine Glucose NEG 05/14/18 1244: Anion Gap 13, Estimated GFR > 60, BUN/Creatinine Ratio 60.0 H, Glucose 245 H, Serum Osmolality 288, Lactic Acid 2.5 H, Calcium 8.6, Total Bilirubin 0.4, AST 15 L, ALT 23, Alkaline Phosphatase 67, Troponin I < 0.01, Dxg-D-Kkoxbzlmztl Pept 06553 H, Total Protein 7.3, Albumin 3.2 L, Globulin 4.1, Albumin/Globulin Ratio 0.8 L, CBC w Diff MAN DIFF ORDERED, RBC 3.42 L, MCV 74.4 L, MCH 23.6 L , MCHC 31.8 L, RDW 20.2 H, MPV 8.3, Gran % 89.4 H, Lymphocytes % 1.9 L, Monocytes % 8.6, Eosinophils % 0.1, Basophils % 0, Absolute Granulocytes 8.4 H, Segmented Neutrophils 84 H, Band Neutrophils 4, Absolute Lymphocytes 0.2 L, Lymphocytes 2 L, Monocytes 9, Absolute Monocytes 0.8 H, Absolute Eosinophils 0 , Basophils 1, Absolute Basophils 0, Platelet Estimate ADEQUATE, Polychromasia 1 +, Hypochromic-Microcytic 3+, Anisocytosis 1+, Microcytic Cells 1+ Microbiology 05/14 1255 URINE ROUT: Urine Culture - RES Assessment/Plan Assessment: 78YOM with hx of COPD on 2L O2 at home, HTN, CAD s/p CABG, HFrEF, DM type 2, and PAD who presented to the ED 2 days ago complaining of dyspnea and intermittent altered mental status. He was found to have CHF exascerbation with increased venous congestion on CXR and no evidence of intracranial events on head CT. Labs showed hyponatremia at 133 yesterday and today 135. Plan 1. CHF Exascerbation with Hx of Ischemic CM * Pt has hx of CHF with EF of 30-35% on last ECHO and increasing CM and LVEDP. He is followed by Dr. Jones. He is managed with spironolactone, losartan, ranexa, gabapentin, carvedilol. His pulmonary exam continues to reveal BL crackles in the lung bases despite lasix diuresis. * Continue monitoring on tele and continue regular medications. Increase lasix dose for diuresis and monitor BMP for sodium abnormalities. Close monitoring of I/O and daily weights as well. * Try to obtain copies [facility] recent [facility] to determine any medication changes. 2. Altered mental status * Pt presented to the ED with hx of intermittent AMS for about 1 wk confirmed by him and his . He had both confusion and visual hallucinations. * Today, pt expresses that he is confused and is AO to person and place but not time or situation. He is not having visual hallucinations. Pt also continues to complain of burning on urination. * F/u UCx (no growth after 1 day) for any growth and consider repeat UA d/t clinical sx of UTI. * Consult psych for clarity on any psych causes of AMS. 3. SOB * Pt has hx of COPD on 2L of O2 at home and HFrEF with EF of 30-35% on recent ECHO. At this time, he is satting well on 3L O2 via nasal canula but respiratory rate is increasing and pulm exam continues to reveal BL crackles in lung bases despite diuresis. * Continue addressing CHF exascerbation to address SOB as pt shows no signs of systemic or pulmonary infection. Repeat CXR to evaluate for worsening cardiomegaly and pulmonary congestion. 4. Expression of wishes for * Pt requested full code status on initial exam in the ED at time of admission. However, pt has expressed his wishes to for the past 36 hours now that he is on the floor. He reports discussing his wishes with his and has discussed them with me and his nurses as well. * Pt called for fork lift mechanic yesterday. He reports being part of the [employer]. * D/t pt's AMS, we should discuss these expressions with the patient's . Chart includes a Durable Power Of Tow Motor Driver and Living Will identifying his to make discisions for him should he become incapacitated. Pt may have desire to change code status from full code to DNR/DNI based on statements made now. 5. Persistent microcytic anemia * Stable H/H. Continue monitoring with CBC. 6. HLD and HTN * Stable. Continue home medications.
[2018-05-16 07:53] LABS: ABSOLUTE BASOPHIL COUNT 0 /CUMM (0.0-0.2); ABSOLUTE EOSINOPHIL COUNT 0.1 /CUMM (0.0-0.7); ABSOLUTE GRANULOCYTE CT 6.1 /CUMM (1.4-6.5); ABSOLUTE LYMPH COUNT 0.4 /CUMM (1.2-3.4); ABSOLUTE MONOCYTE COUNT 0.8 /CUMM (0.10-0.60); BASOPHIL % 0.4 % (0.0-2.0); EOSINOPHIL % 1.2 % (0-5); GRANULOCYTE % 82.1 % (42.2-75.2); HEMATOCRIT 26.3 % (42-52); MEAN CORPUSCULAR HGB 23.9 PG (27.0-31.0); MEAN CORPUSCULAR HGB CONC 31.8 G/DL (33.0-37.0); MEAN CORPUSCULAR VOLUME 75.2 FL (80.0-94.0); MEAN PLATELET VOLUME 8.2 FL (7.4-10.4); PLATELET COUNT 324 /CUMM (130-400); RBC DISTRIBUTION WIDTH 20.8 % (11.5-14.5); RED BLOOD CELL CT 3.49 /CUMM (4.70-6.10); WHITE BLOOD CELL COUNT 7.5 /CUMM (4.8-10.8)
--- NOTE | 2018-05-16 08:19 | PN-Observation ---
Allen Sanchez 05/16/18 0810: Observation Note Observation Note _ I have personally examined CAITY BELL. him disposition is uncertain at this time. Before a determination can be made, he requires continued observation for the following reasons shortness of breath and altered mental status. Assessment/Plan Medical Assessment: is a 78-year-old male with past medical history of COPD on 2 L home oxygen, Ms., CHF with previous EF 30-35%, bilateral endarterectomy, bladder cancer, frequent UTIs, type 2 diabetes, PAD recently discharged from [facility] ED 8 days ago for CHF exacerbation. Patient came into the [facility] ED for increasing shortness of breath and altered mental status as reported by his . Patient noted to have hallucinations and saying statements that do not make sense such as the need to keep counting, and the need to push a button. In addition patient noted to have urinary urgency, hesitancy and dysuria. Vital signs on admission were stable. Patient on 3 L nasal cannula 97%. Troponins and EKG on admission were negative for any acute pathology. Chest x-ray demonstrated cardiomegaly with mild CHF and bilateral pleural effusions. No PE on chest CT. No intracranial process on head CT. We VTE negative. Problem list: 1. CHF exacerbation 2. Altered mental status 3. Urological symptoms Problem List: 1. CHF exacerbation Plan: CHF exacerbation * Previous EF demonstrates 30-35% EF with left ventricular dysfunction on . Recent discharge from [facility] after treatment for CHF exacerbation. * Increase Lasix dose to 60mg BID; patient has signficiant crackles and shortness of breath * Continue to monitor vitals and strict ins and outs and daily weights * Follow-up with Dr. Jones of cardiology service. * Patient currently on 3 L nasal cannula 97%. Normally requires 2 L at home for COPD. * Continues to have crackles at lower lung bases. * Repeat CXR today for respiratory status. Altered mental status * Patient's altered mental status is improved. He is alert and oriented to person, place and time. Patient denies any recent hallucinations. * Consider psychiatry and geriatric consultation. * Patient has a baseline hyponatremia around 131-133. We will continue to monitor. Urological symptoms * Patient complaining of dysuria this morning. We will continue to monitor patient for urological symptoms. * Urine culture shows no growth after day 1. * Patient is afebrile, with no white count. * BUN and creatinine stable. BUN 19 , creatinine 0.8 Will speak to about full code status. Patient had stated to house staff that he is "ready to " yesterday and is frustrated with his condition. Will follow up with psychiatry today. CODE STATUS: Full code DVT prophylaxis: Lovenox Diet: CHF diet: Mechanical grounds and then liquid DVT/Prophylaxis: mechanical, pharmacological Consulting Request: Consulting Specialty: Cardiology Subjective Follow-up For: CHF Exacerbation Altered Mental Status Tele-Events Since Last Visit: Dual-chamber pacing, 66 Subjective: Patient seen and examined at bedside this morning. Patient currently on 3 L nasal cannula saturating at 95%. Patient claims that he feels hot but otherwise denies any chest pain, palpitations. Patient continues to have complaint of dysuria on urination. Patient is afebrile and vital signs are stable. Patient is alert and oriented to person, place and time. We will continue to monitor respiratory status and altered mental status. Review of Systems Constitutional: Denies: see HPI. Objective Last 24 Hrs of Vital Signs/I&O Vital Signs Date Time Temp Pulse Resp B/P B/P Pulse O2 O2 Flow FiO2 Mean Ox Delivery Rate 05/16 0618 97.9 68 22 126/64 95 Nasal Cannula 05/15 2134 98 Nasal 3.0L Cannula 05/15 2134 98.5 62 24 112/62 98 Nasal 3.0L Cannula 05/158 93 Nasal 3.0L Cannula 05/158 63 112/62 05/158 63 112/62 05/15 1600 Nasal 3.0L Cannula 05/15 1444 97.7 58 18 112/62 100 Room Air 05/15 1056 Nasal 2.0L Cannula 05/15 1052 94 Nasal 2.0L Cannula 05/15 0831 64 126/64 05/15 0829 64 126/64 05/15 0829 64 126/64 05/15 0828 64 126/64 Intake & Output 05/16 1600 05/16 0800 05/16 0000 Intake Total 254 Output Total 245 300 Balance -245 -46 Intake, IV 14 Intake, Oral 240 Output, Urine 245 300 Patient 125 lb Weight Weight Bed scale Measurement Method Physical Exam General Appearance: Alert, Oriented X3, Cooperative, Mild Distress HEENT: EOMI, Mucous Membr. moist/pink Cardiovascular: Regular Rate, Normal S1, Normal S2 Lungs: Crackles at lower lung bases Abdomen: Normal Bowel Sounds, Soft, No Tenderness Neurological: Normal Speech, Normal Tone, Sensation Intact Extremities: No Clubbing, No Cyanosis, No Edema Vascular: Normal Pulses, Pulses Symmetrical Current Medications: Current Medications Sig/Damon Start time Last Medication Dose Route Stop Time Status Admin Acetaminophen 500 MG Q8P PRN 05/14 174 AC PO Albuterol Sulfate 3 ML Q4P PRN 05/15 1000 AC 05/15 INH 0952 Albuterol Sulfate 2 PUF Q4-6 PRN PRN 05/14 174 AC INH Aspirin Buffered 81 MG DAILY 05/14 174 AC 05/15 PO 08 Atorvastatin Calcium 40 MG 1700 05/14 1746 AC 05/15 PO 163 Carvedilol 25 MG BID 05/14 2100 AC 05/15 PO 2057 Clopidogrel Bisulfate 75 MG DAILY 05/14 174 AC 05/15 PO 0828 Enoxaparin Sodium 40 MG DAILY 05/15 09 AC 05/15 SC 0831 Finasteride 5 MG DAILY 05/14 174 AC 05/15 PO 08 Furosemide 40 MG .[facility] 05/15 1036 DC IV 05/15 1037 Furosemide 40 MG 7:30 AM, & 4:30 PM 05/15 915 AC 05/15 IV 1635 Gabapentin 100 MG TID 05/14 2100 AC 05/15 PO 2057 Insulin Aspart 0 TIDAC 05/15 08 AC 05/15 SC 1215 Losartan Potassium 25 MG DAILY 05/15 09 AC 05/15 PO 0829 Magnesium Oxide 400 MG DAILY 05/15 09 AC 05/15 PO 0829 Melatonin 6 MG QPM 05/14 2100 AC 05/15 PO 2057 Omeprazole 20 MG DAILY AC 05/15 07 AC 05/16 PO 0539 Polyethylene Glycol 17 GM DAILY NEEDED PRN 05/14 1800 AC PO Ranolazine 1,000 MG BID 05/14 2100 AC 05/15 PO 2057 Senna 374 MG AT BEDTIME NEED.. 05/14 1800 AC 05/15 PO 0832 Spironolactone 25 MG DAILY 05/15 09 AC 05/15 PO 0829 Tamsulosin HCl 0.4 MG DAILY 05/15 09 AC 05/15 PO 0831 Tiotropium [place] 1 PUF DAILY 05/15 0900 AC 05/15 INH 0833 Last 24 Hrs of Labs/Mics: Laboratory Tests 05/16/18 0604: Sodium Pending, Potassium Pending, Chloride Pending, Carbon Dioxide Pending, Anion Gap Pending, BUN Pending, Creatinine Pending, BUN/Creatinine Ratio Pending , CBC w Diff NO MAN DIFF REQ, RBC 3.49 L, MCV 75.2 L, MCH 23.9 L, MCHC 31.8 L, RDW 20.8 H, MPV 8.2, Gran % 82.1 H, Lymphocytes % 5.9 L, Monocytes % 10.4 H, Eosinophils % 1.2, Basophils % 0.4, Absolute Granulocytes 6.1, Absolute Lymphocytes 0.4 L, Absolute Monocytes 0.8 H, Absolute Eosinophils 0.1, Absolute Basophils 0 CisnerosMorris currymiranda 05/16/18 1235: Attending MD Review Statement Attending Statement Attending MD Statement: examined this patient, discuss w/resident/PA/FIELD SERVICE REPRESENTATIVE, agreed w/resident/PA/FIELD SERVICE REPRESENTATIVE, reviewed EMR data (avail), discussed w/nursing, discussed w/ case mgmt Attending Assessment/Plan: acute on chronic systolic chf and pulm htn with acute on chronic resp failure on home oxygen- presented with sob. started on iv lasix 40mg po bid, will increase lasix to 60mg iv bid for now . cardio consult-will f/u on their recommendations. will get psychiatry consult for hallucinations. Pt on exam was alert and oriented and was able to tell he is in [facility] and was able to answer appropriately. Pt frustrated with frequent chf exacerbations. Had family conf with and daughter and brother. will get hospice consult as family leaning towards hospice.
--- NOTE | 2018-05-16 10:27 | RADIOLOGY REPORT ---
EXAMINATION: XR PORTABLE CHEST CLINICAL INFORMATION: Shortness of breath. CHF. COMPARISON: Chest done on 05/14/2018. TECHNIQUE: Portable frontal view of the chest was obtained. FINDINGS: Bilateral moderate pleural effusions are present with bibasilar airspace disease including compressive atelectasis. Patchy airspace disease is noted throughout the remainder of the aerated lung rao bilaterally, appear improved since 05/14/2018. The cardiomediastinal silhouette is within normal limits. Postop changes of sternotomy and CABG are present. Multilead AICD device is present, appears intact. Overall, there is improved aeration noted bilaterally since the prior study dated 05/14/2018. No new abnormalities. IMPRESSION: Interval improved aeration at the lung rao bilaterally since the prior study dated 05/14/2018. No other significant change. Specifically no new abnormalities.
--- NOTE | 2018-05-16 13:01 | Patient Discharge Instructions ---
Discharge Instructions General Discharge Information You were seen/treated for: Acute on chronic systolic heart failure Special Instructions: Please follow-up with PCP in 1 week after discharge Please follow-up with tire design engineer in 1 week after discharge. Diet Continue normal diet: Yes Activity Full Activity/No Limits: Yes Acute Coronary Syndrome Inclusion Criteria At DC or during hospital stay patient has or had the following: ACS DIAGNOSIS No Discharge Core Measures Meds if any: Prescribed or Continued at Discharge Meds if any: NOT Prescribed or Continued at Discharge Congestive Heart Failure Inclusion Criteria At DC or during hospital stay patient has or had the following: CHF DIAGNOSIS No Discharge Core Measures Meds if any: Prescribed or Continued at Discharge Meds if any: NOT Prescribed or Continued at Discharge Cerebrovascular accident Inclusion Criteria At DC or during hospital stay patient has or had the following: CVA/TIA Diagnosis No Discharge Core Measures Meds if any: Prescribed or Continued at Discharge Meds if any: NOT Prescribed or Continued at Discharge Venous thromboembolism Inclusion Criteria VTE Diagnosis No VTE Type NONE VTE Confirmed by (Test) NONE Discharge Core Measures - Per Current guidelines, there needs to be overlap - treatment for the first 5 days of Warfarin therapy. - If discharged on Warfarin prior to 5 days of - overlap therapy, the patient will need to be - assessed for post discharge needs including - *Post discharge parental anticoagulation - *Warfarin and/or parental anticoagulation education - *Follow up date to check INR post discharge At least 5 days overlap therapy as Inpatient No Meds if any: Prescribed or Continued at Discharge Note: Overlap Therapy is Warfarin and Anticoagulant Meds if any: NOT Prescribed or Continued at Discharge
[2018-05-16 14:15] VITALS: BP 124/58
--- NOTE | 2018-05-16 15:00 | PN- Cardiology ---
Subjective Subjective: The patient appears more despondent today. No obvious new issues or symptoms. Respiratory status stable at the time the patient was seen. No specific new complaints. Objective Vital Signs and I&Os Vital Signs Date Time Temp Pulse Resp B/P B/P Pulse O2 O2 Flow FiO2 Mean Ox Delivery Rate 05/16 1415 97.1 65 22 124/58 98 Nasal Cannula 05/16 0808 74 126/64 05/16 0807 74 126/64 05/16 0806 74 126/64 05/16 0806 74 126/64 05/16 0800 Nasal 3.0L Cannula 05/16 0618 97.9 68 22 126/64 95 Nasal Cannula 05/15 213 98 Nasal 3.0L Cannula 05/15 2134 98.5 62 24 112/62 98 Nasal 3.0L Cannula 05/15 2128 93 Nasal 3.0L Cannula 05/15 2058 63 112/62 05/15 2058 63 112/62 05/15 1600 Nasal 3.0L Cannula Intake & Output 05/16 1600 05/16 0800 05/16 0000 05/15 1600 05/15 0800 05/15 0000 Intake Total 100 254 360 Output Total 100 245 300 250 500 200 Balance 0 -245 -46 110 -500 -200 Intake, IV 14 Intake, Oral 100 240 360 Output, Urine 100 245 300 250 500 200 Patient 125 lb 126 lb Weight Weight Bed scale Bed scale Measurement Method Physical Exam: General Appearance Alert, Oriented X3, Cooperative, Confused; conversating abnormal sentences about pushing a button and extreme concern about color of urination HEENT PERRLA, EOMI, Mucous Membr. moist/pink Neck Supple, No JVD, carotids normal bilaterally Cardiovascular Regular Rate, Normal S1, Normal S2, 1/6 to 2/6 systolic murmur Lungs bibasilar crackle with scattered rhonchi Abdomen suprapubic tenderness; normal bowel sounds; nondistended Neurological Normal Speech, Strength at 5/5 X4 Ext, Normal Tone, Sensation Intact, Cranial Nerves 3-12 NL, Reflexes 2+ Extremities No significant peripheral edema Vascular Normal Pulses, Pulses Symmetrical Current Medications: Current Medications Sig/Damon Start time Last Medication Dose Route Stop Time Status Admin Acetaminophen 500 MG Q8P PRN 05/14 1745 AC PO Albuterol Sulfate 3 ML Q4P PRN 05/15 1000 AC 05/15 INH 0952 Albuterol Sulfate 2 PUF Q4-6 PRN PRN 05/14 1745 AC INH Aspirin Buffered 81 MG DAILY 05/14 1745 AC 05/16 PO 0803 Atorvastatin Calcium 40 MG 1700 05/14 1746 AC 05/15 PO 1635 Carvedilol 25 MG BID 05/14 2100 AC 05/16 PO 0806 Clopidogrel Bisulfate 75 MG DAILY 05/14 1746 AC 05/16 PO 0807 Enoxaparin Sodium 40 MG DAILY 05/15 09 AC 05/16 SC 0810 Finasteride 5 MG DAILY 05/14 174 AC 05/16 PO 0808 Furosemide 60 MG 7:30 AM, & 4:30 PM 05/16 1630 AC IV Furosemide 20 MG ONCE ONE 05/16 930 DC 05/16 IV 05/16 0931 0945 Furosemide 40 MG 7:30 AM, & 4:30 PM 05/15 0915 DC 05/16 IV 0802 Gabapentin 100 MG TID 05/14 2100 AC 05/16 PO 0806 Insulin Aspart 0 TIDAC 05/15 08 AC 05/15 SC 1215 Losartan Potassium 25 MG DAILY 05/15 09 AC 05/16 PO 0807 Magnesium Oxide 400 MG DAILY 05/15 09 AC 05/16 PO 0808 Melatonin 6 MG QPM 05/14 2100 AC 05/15 PO 2058 Omeprazole 20 MG DAILY AC 05/15 07 AC 05/16 PO 0539 Polyethylene Glycol 17 GM DAILY NEEDED PRN 05/14 1800 AC PO Ranolazine 1,000 MG BID 05/14 2100 AC 05/16 PO 0808 Senna 374 MG AT BEDTIME NEED.. 05/14 1800 AC 05/15 PO 0832 Spironolactone 25 MG DAILY 05/15 09 AC 05/16 PO 0803 Tamsulosin HCl 0.4 MG DAILY 05/15 09 AC 05/16 PO 0806 Tiotropium [place] 1 PUF DAILY 05/15 09 AC 05/16 INH 0810 Results Last 48 Hrs of Labs/Mics: Laboratory Tests 05/16/18 1420: pH 7.42, pCO2 48 H, pO2 112 H, HCO3 31 H, ABG O2 Sat (Measured) 98.0, Carboxyhemoglobin 1.1 L, O2 Concentration % 3L, O2 Delivery Method NC, Phlebotomy Draw Site RIGHT RADIAL 05/16/18 1205: Urine Color YEL, Urine Clarity CLEAR, Urine pH 7.0, Ur Specific [place] 1.010, Urine Protein NEG, Urine Ketones NEG, Urine Nitrite NEG, Urine Bilirubin NEG, Urine Urobilinogen 0.2, Ur Leukocyte Esterase NEG, Ur Microscopic EXAM NOT REQUIRED, Urine Hemoglobin NEG, Urine Glucose NEG 05/16/18 0604: Anion Gap 11, Estimated GFR > 60, BUN/Creatinine Ratio 43.3 H, CBC w Diff NO MAN DIFF REQ, RBC 3.49 L, MCV 75.2 L, MCH 23.9 L, MCHC 31.8 L, RDW 20.8 H, MPV 8.2, Gran % 82.1 H, Lymphocytes % 5.9 L, Monocytes % 10.4 H, Eosinophils % 1.2, Basophils % 0.4, Absolute Granulocytes 6.1, Absolute Lymphocytes 0.4 L, Absolute Monocytes 0.8 H, Absolute Eosinophils 0.1, Absolute Basophils 0 05/15/18 0340: Troponin I < 0.01 05/15/18 0340: Anion Gap 10, Estimated GFR > 60, BUN/Creatinine Ratio 45.0 H, CBC w Diff NO MAN DIFF REQ, RBC 3.45 L, MCV 74.1 L, MCH 23.8 L, MCHC 32.1 L, RDW 20.8 H, MPV 8.2, Gran % 83.2 H, Lymphocytes % 4.2 L, Monocytes % 11.7 H, Eosinophils % 0.8, Basophils % 0.1, Absolute Granulocytes 6.7 H, Absolute Lymphocytes 0.3 L, Absolute Monocytes 0.9 H, Absolute Eosinophils 0.1, Absolute Basophils 0 05/14/18 2230: Troponin I < 0.01 05/14/18 1517: Lactic Acid 1.7 Assessment/Plan Assessment/Plan Assessment: 1. Increasing shortness of breath with evidence of acute on chronic HFrEF 2. Mental status changes with reported hallucinations 3. History of ischemic cardiomyopathy with known coronary disease, prior bypass surgery, and ejection fraction of 30-35% 4. Persistent microcytic anemia 5. Severe pulmonary hypertension on prior echocardiogram 6. Permanent pacemaker 7. COPD 8. Hyperlipidemia 9. Hypertension Recommendations: -Monitor on telemetry -Continue regular medications -Gentle diuresis with IV Lasix and close monitoring of intakes, outputs, daily weights, etc. -No need to repeat echocardiogram at the present time. -Monitor sodium closely on diuretic regimen -[facility] to [facility] to see if there are any changes to the patient's medication regimen. Continue telemetry? Yes
--- NOTE | 2018-05-16 17:17 | Event Note ---
Event Note Event Note: Family meeting was held around 3 PM with patient , daughter, brother. We discussed about Mr. Mejia's present health situation and multiple admissions for CHF. Patient made aware to the family that he does not want to live like this with deteriorating and is reversible health condition. * At this point family wanted to know about hospice. * At around 5 PM hospice team was here, gave detailed information to the family members about hospice care. * Family wanted him to send to [facility]. * Meanwhile family does not want aggressive methods like CPR and intubation. Family opted for DNR/DNI. * CODE STATUS was changed to DNR/DNI from full code.
--- NOTE | 2018-05-16 17:32 | Discharge Summary ---
Visit Information Visit Dates Admission Date: 05/14/18 Discharge Date: 05/17/2018 Hospital Course Course Attending Physician: Malcolm Cisneros MD Primary Care Physician: Juan Carlos Marie MD Consulting Request: Consulting Specialty: Cardiology Hospital Course: Mr. Mejia is an 78-year-old male with past medical history of COPD on 2 L oxygen at home, hypertension, coronary artery disease status post CABG, congestive heart failure with previous EF 30-35%, bilateral endarterectomy, bladder cancer, frequent UTIs, type 2 diabetes, peripheral artery disease was recently discharged from [facility] 8 days ago for CHF exacerbation secondary to ischemic cardiomyopathy presented to the emergency room with his with chief complaint of increased intermittent confusion, visual hallucinations, and having difficulty catching his breath. He was advised to take Bumetanide 1mg BID. Mr. Mejia claims to be compliant with his medication. Vitals on admission: 98.1, 62 pulse rate, 21 respiratory rate, 120/56, 97% on nasal cannula 3 L Pertinent Labs: UA negative for infection Lactic acid 2.5 high AST 15 ProBNP 20,500 Imaging: HEAD CT: IMPRESSION: Limited exam due to motion. 1. No acute intracranial process. 2. Changes of ischemic small vessel disease and volume loss. CT CHEST: IMPRESSION: No evidence of pulmonary emboli. Marked underlying pulmonary disease which is all stable as described above. Bilateral unchanged pleural effusions. VTE: Negative CXR: IMPRESSION: Cardiomegaly with mild CHF and bilateral pleural effusions. Problem List: 1. CHF Exacerbation 2. Altered Mental Status 3. Urological Symptoms Acute on chronic systolic CHF EXACERBATION Patient has a history of CHF exacerbation and recently admitted and discharged 8 days ago. ECHO done 05/02/18 demonstrated ejection fraction: 30-35%. Patient presented with bilateral crackles in lower lung bases on admission and shortness of breath. CXR demonstrated cardiomegaly and mild CHF. CTA demonstrated bibasilar atelectasis and diffuse groundglass changes with bilateral pleural effusions right greater than left. Patient was placed under observation status in the telemetry floor, monitored on telemetry continuously. He was given IV diuretics in the hospital Lasix IV 60 mg twice daily. Daily weights, ins and outs were monitored. [employer] on board. Repeat chest x-ray showed mild improvement of bilateral lung aeration. However he required 3 L nasal cannula oxygen supplementation which is more than his baseline. We continued his home medications for chronic CHF with low ejection fraction. He was continued on Coreg 25 twice daily, losartan 25 daily, Ranexa 1 g twice daily, Aldactone 25 daily ALTERED MENTAL STATUS Patient has a history of altered mental changes recently as well as on prior admission. as per history, states he has had increasing confusion and visual hallucinations in the past month. During assesment, patient repeatedly noted on the subject of continuous "counting" and "pressing a button." This altered mental status may be multifactorial given recent ischemic small vessel diseaes in the brain, hyponatremia, urinary symptoms, chf exacerbation and polypharmacy that may exacerbate mental status in the elderly. Psychiatrist was consulted. UROLOGICAL SYMPTOMS Patient complains of change in color of urine to a darker tone. Increased urinary urgency, hesitency and dysuria. Tenderness of palpation of suprapubic area. Symptoms could be releated to patients history of BPH for which he takes tamsulosin and finasteride. Urine analysis was within normal limits. Urine cultures showed no growth after 2 days. He was monitored off from antibiotics. He remained afebrile with no leukocytosis COPD on 2 L home oxygen-continued albuterol, Spiriva Hypertension continue losartan Coronary artery disease status post CABG continue aspirin 81, statin 40, Plavix 75 type 2 diabetes mellitus maintained on insulin sliding scale BPH continue Flomax and finasteride Code Status: On 05/16/2018 hospice team was here, gave detailed information to the family members about hospice care. Family wanted him to send to [facility]. Meanwhile family does not want aggressive methods like CPR and intubation. Family opted for DNR/DNI. CODE STATUS was changed to DNR/DNI from full code. DVT PPx: Lovenox Diet: CHF diet; mechanical ground and thin liquids Allergies: Coded Allergies: No Known Allergies (02/16/17) Pertinent Lab Results: FINDINGS: There is mild cardiomegaly. Upper zone redistribution and central venous congestion consistent with elevated left ventricular end-diastolic pressure and mild CHF. This finding appears worse than noted on the prior chest radiograph. Bilateral pleural effusions remain present about the same size as they were on 05/04/2018. Pacemaker is present with 3 leads. Bibasilar atelectasis is present. IMPRESSION: Cardiomegaly with mild CHF and bilateral pleural effusions. IMPRESSION: No evidence of pulmonary emboli. Marked underlying pulmonary disease which is all stable as described above. Bilateral unchanged pleural effusions. VTE: Negative IMPRESSION: Limited exam due to motion. 1. No acute intracranial process. 2. Changes of ischemic small vessel disease and volume loss. Disposition Summary Disposition Principal Diagnosis: Acute on chronic systolic CHF exacerbation Additional Diagnosis: Altered mental status Discharge Disposition: hospice - medical facilit Discharge Instructions General Discharge Information Code Status: Hospice Patient's Diet: As tolerated Patient's Activity: As tolerated Follow-Up Instructions/Appts: Hospice discharge Medications at Discharge Discharge Medications: Continue taking these medications: Clopidogrel Bisulfate (Plavix) 75 MG TABLET 1 Tablet ORAL DAILY Comments: Last Taken: 05/17/18 Time: 9:30 AM Finasteride (Finasteride) 5 MG TABLET 1 Tablet ORAL DAILY Comments: Last Taken: 05/17/18 Time: 9:30 AM Omeprazole (Omeprazole) 20 MG TABLET. 1 Tablet ORAL DAILY BEFORE BREAKFAST Comments: Last Taken: 05/17/18 Time: 5:00 AM Ranolazine (Ranexa) 500 MG TAB.ER.12H 2 Tablet ORAL TWICE DAILY Comments: Last Taken: 05/17/18 Time: 9:30 AM Tamsulosin HCl (Flomax) 0.4 MG CAP.ER.24H 1 Capsule ORAL DAILY Comments: Last Taken: 05/17/18 Time: 9:30 AM Aspirin (Ecotrin*) 81 MG TABLET.DR 1 Tablet ORAL DAILY Comments: Last Taken: 05/17/18 Time: 9:30 AM Acetaminophen (Tylenol Extra Strength) 500 MG TABLET 2 Tablet ORAL as needed for PAIN Comments: Last Taken: 05/17/18 Time: 5:00 AM Melatonin (Melatonin) 3 MG TABLET 6 Milligram ORAL Every night Comments: Last Taken: 05/16/18 Time: 21:00 PM Albuterol Sulfate (Proair Hfa) 90 MCG HFA.AER.AD 2 Puff Inhale through mouth EVERY 4-6 HOURS NEEDED as needed for SOB Qty = 1 Comments: NOT GIVEN Atorvastatin Calcium (Lipitor) 40 MG TABLET 1 Tablet ORAL DAILY Comments: Last Taken: 05/16/18 Time: 6:00 PM Tiotropium [place] (Spiriva) 18 MCG CAP.W.DEV 1 Puff Inhale through mouth DAILY Qty = 1 Comments: Last Taken: 05/17/18 Time: 9:30 AM Magnesium Oxide (Magnesium) 400 MG CAPSULE 1 Capsule ORAL DAILY Qty = 30 Comments: Last Taken: 05/17/18 Time: 9:30 AM Metformin HCl (Metformin HCl) 500 MG TABLET 1 Tablet ORAL TWICE DAILY Comments: NOT GIVEN IN HOSPITAL Losartan Potassium (Cozaar) 25 MG TABLET 1 Tablet ORAL DAILY Comments: Last Taken: 05/17/18 Time: 9:30 AM Spironolactone (Spironolactone) 25 MG TABLET 1 Tablet ORAL DAILY Comments: Last Taken: 05/17/18 Time: 9:30 AM Multivit-Min/FA/Lycopen/Lutein (Centrum Silver Men Tablet) 300 MCG-600 MCG-300 MCG TABLET 1 Tablet ORAL DAILY Comments: NOT GIVEN IN HOSPITAL Ubidecarenone (Co Q-10) 200 MG CAPSULE 1 Tablet ORAL DAILY Comments: NOT GIVEN IN HOSPITAL Beta-Carotene (Beta Carotene) 10,000 UNIT CAPSULE 1 Capsule ORAL DAILY Comments: NOT GIVEN IN HOSPITAL Carvedilol (Carvedilol) 25 MG TABLET 1 Tablet ORAL TWICE DAILY Comments: Last Taken: 05/17/18 Time: 9:30 AM Bumetanide (Bumetanide) 1 MG TABLET 1 Tablet ORAL TWICE DAILY Qty = 60 Comments: NOT GIVEN Ferrous Sulfate (Ferrous Sulfate) 325 MG (65 MG IRON) TABLET.DR 325 Milligram ORAL TWICE DAILY Qty = 60 Instructions: . Comments: NOT GIVEN Gabapentin (Gabapentin) 100 MG CAPSULE 100 Milligram ORAL THREE TIMES DAILY Qty = 60 Comments: Last Taken: 05/17/18 Time: 9:30 AM Start taking the following new medications: Lorazepam (Ativan) 0.5 MG TABLET 1 Tablet ORAL EVERY SIX HOURS as needed for Anxiety Qty = 30 No Refills Comments: Last Taken: 05/17/18 Time: 9:45 AM Morphine Sulfate (Morphine Sulfate) 15 MG TABLET 1 Tablet ORAL EVERY SIX HOURS NEEDED Qty = 30 No Refills Comments: IV DOSE GIVEN Last Taken: 05/17/18 Time: 10:15 AM Copies To: Juan Carlos Marie MD
[2018-05-16 22:25] VITALS: BP 110/52
[2018-05-17 06:34] VITALS: BP 120/52
--- NOTE | 2018-05-17 08:25 | PN- Housestaff ---
Assessment/Plan Consulting Request: Consulting Specialty: Cardiology
[2018-05-17 08:29] LABS: ABSOLUTE BASOPHIL COUNT 0 /CUMM (0.0-0.2); ABSOLUTE EOSINOPHIL COUNT 0.1 /CUMM (0.0-0.7); ABSOLUTE GRANULOCYTE CT 6.6 /CUMM (1.4-6.5); ABSOLUTE LYMPH COUNT 0.4 /CUMM (1.2-3.4); ABSOLUTE MONOCYTE COUNT 0.9 /CUMM (0.10-0.60); BASOPHIL % 0.6 % (0.0-2.0); EOSINOPHIL % 1.1 % (0-5); GRANULOCYTE % 82.5 % (42.2-75.2); HEMATOCRIT 27.6 % (42-52); MEAN CORPUSCULAR HGB 23.8 PG (27.0-31.0); MEAN CORPUSCULAR HGB CONC 31.8 G/DL (33.0-37.0); MEAN CORPUSCULAR VOLUME 74.8 FL (80.0-94.0); MEAN PLATELET VOLUME 7.8 FL (7.4-10.4); PLATELET COUNT 369 /CUMM (130-400); RBC DISTRIBUTION WIDTH 21.2 % (11.5-14.5); RED BLOOD CELL CT 3.68 /CUMM (4.70-6.10); WHITE BLOOD CELL COUNT 8.1 /CUMM (4.8-10.8)
[2018-05-17] MEDS ORDERED: MORPHINE SULFAT15 M4 PO (09:34)
[2018-05-17] MEDS ORDERED: ATIVAN0.5 M1 PO (09:34)
--- NOTE | 2018-05-17 09:59 | PN- Att Addend ---
Attending Addendum Attending Brief Note Seen and examined. Events of the family meeting noted and patient has been accepted [facility] for a hospice bed. On exam temperature is 98.5, blood pressure is 120/70, pulse is 76 and he is breathing at 16-18 he is depressed but accepting of his condition. Lungs have decreased breath sounds with scattered crackles, heart is S1-S2 regular with a soft systolic murmur, abdomen is soft with some mild suprapubic tenderness. He is an 78-year-old gentleman with advanced ischemic cardiomyopathy with an EF of that is reduced he is here with an acute systolic heart failure exacerbation and as per his wishes and family's wishes he is comfort measures and hospice care and is going to be discharged to inpatient hospice at [facility].
[2018-05-17 11:08] VITALS: BP 120/50
== END 2018-05-17 11:20 | disposition hospice, home (50) ==
LOC: ERH 11:29 → ERHI 15:56 → 1NO 15:56 → ENRESERV 17:01 → ENTRNSPT 18:35 → EDTRNSPTSTS 18:47 → EDTRNSPT 18:47 → 1NO 19:05 → CMPTRNSPT 19:22 → 1NO 19:28 → ENPENDDIS 05-17 09:33 → 1NO 05-17 11:20
PROVIDERS: Internal Medicine; Physical Medicine & Rehabilitation Pain Medicine; Physician Assistant
DX: I11.0 Hypertensive heart disease with heart failure (principal); I50.23 Acute on chronic systolic (congestive) heart failure; J96.11 Chronic respiratory failure with hypoxia; Z51.5 Encounter for palliative care; J44.9 Chronic obstructive pulmonary disease, unspecified; Z99.81 Dependence on supplemental oxygen; Z95.1 Presence of aortocoronary bypass graft; D50.9 Iron deficiency anemia, unspecified; E78.5 Hyperlipidemia, unspecified; K21.9 Gastro-esophageal reflux disease without esophagitis; E87.1 Hypo-osmolality and hyponatremia; R39.11 Hesitancy of micturition; R35.0 Frequency of micturition; R44.1 Visual hallucinations; I27.20 Pulmonary hypertension, unspecified; I25.10 Atherosclerotic heart disease of native coronary artery without angina pectoris; Z85.51 Personal history of malignant neoplasm of bladder; Z87.440 Personal history of urinary (tract) infections; E11.42 Type 2 diabetes mellitus with diabetic polyneuropathy; Z79.84 Long term (current) use of oral hypoglycemic drugs; I25.5 Ischemic cardiomyopathy; I42.8 Other cardiomyopathies; Z79.82 Long term (current) use of aspirin
CPT/HCPCS: 1255; 1263; 1328; 1530; 1748; 36592; 71045; 71046; 81001; 81003; 82436; 87086; 93005; 93010; 96372; 96374; 96375; 96376; 97161-GP; 97530-GP; G0378; G8978-GP; G8979-GP; J1650; J1940; J3490